=== PATIENT | female | born 1950 | race Caucasian/White ===

== ENCOUNTER 2016-07-24 15:00 | Emergency (ER) | payer MEDICARE ==
[~2016-07-24] VITALS: Ht 142.2 cm; Wt 74.8 kg
[~2016-07-24 15:00] MED LIST: /GLYB5TA OR; /INSULEV SC; AMIT24CA5 PO; AMLO2.5T PO; ASPI1TAB PO; ASPI81TA60 PO; ATOR1TAB19 PO; CALCCHW12 OR; CITRTAB18 PO; COLA100C2 OR; COQ10 PO; CORE3.12 OR; COZA25TA8 OR; CYMBALTA PO; DULO1CAP3 PO; FEOSOL PO; FERR325T3 PO; GABA-279 PO; HUMALOG SC; ICAP PO; INSUDET SC; INSUHUMDS SC; ISOS30BRAN OR; ISTALOL OU; LOSA25TA8 PO; LOSA50TA20 PO; LOVAZA PO; METF500T4 OR; NEXI40CA PO; NITR0.4S SL; NITR4TASL SL; PERC5TAB8 OR; PLAV75TA38 PO; PRIL40CA OR; SLOWTAB PO; TIMO0.5S4 OU; TIMO5OPG OU; TORS20TA2 OR; TYLE1TAB5 PO; VITA10002 PO; VITMTA PO; ZOCO40TA OR
[2016-07-24] MEDS ORDERED: CENTTAB47 PO (15:21)
[2016-07-24] MEDS ORDERED: VITA250L PO (15:21)
[2016-07-24] MEDS ORDERED: NOVOINJ3 SC (15:21)
[2016-07-24] MEDS ORDERED: FURO20TA2 PO (15:21)
[2016-07-24] MEDS ORDERED: ASPIRIN 81 MG CHEW TABLET PO ONE (16:15)
[2016-07-24 16:36] LABS: ALBUMIN/GLOBULIN RATIO 0.94 (1.00-1.93); ALKALINE PHOSPHATASE 83 U/L (45-117); ALT/SGPT 26 U/L (12-78); ANION GAP 9 MEQ/L (8-16); AST/SGOT 21 U/L (15-37); BILIRUBIN,DIRECT < 0.1 MG/DL (0.0-0.2); BILIRUBIN,TOTAL 0.2 MG/DL (0.2-1.0); BLOOD UREA NITROGEN 27 MG/DL (7-18); CALCIUM LEVEL 8.1 MG/DL (8.8-10.2); CARBON DIOXIDE LEVEL 27 MEQ/L (21-32); CHLORIDE LEVEL 105 MEQ/L (98-107); CREATININE FOR GFR 1.45 MG/DL (0.55-1.02); GLOMERULAR FILTRATION RATE 38.6 (>45); GLUCOSE, FASTING 101 MG/DL (80-110); POTASSIUM SERUM 3.7 MEQ/L (3.5-5.1); SODIUM LEVEL 141 MEQ/L (136-145); TOTAL PROTEIN 6.2 GM/DL (6.4-8.2)
--- NOTE | 2016-07-24 16:42 | REP ---
Chest two views HISTORY: Chest pain Comparison: 02/21/2015 The lungs are clear. The heart is normal in size. The pulmonary vasculature is normal in appearance. The bony structure is intact. IMPRESSION: No acute disease. Signed by Ulysses Malave MD 07/24/2016 04:34 P
[2016-07-24 16:52] LABS: BASO % 0.5 % (0.0-1.0); EOS # 0.4 K/mm3 (0.0-0.50); EOS % 5.9 % (0.0-3.0); LARGE UNSTAINED CELL # 0.2 K/mm3 (0.0-0.4); LARGE UNSTAINED CELL % 2.5 % (0.0-4.0); LYMPH # 2.4 K/mm3 (1.5-4.5); LYMPH % 36.3 % (24.0-44.0); MEAN CORPUSCULAR HEMOGLOBIN 31.1 pg (27.0-33.0); MEAN CORPUSCULAR HGB CONC 33.9 g/dl (32.0-36.5); MEAN CORPUSCULAR VOLUME 91.6 fl (80.0-96.0); MONO # 0.4 K/mm3 (0.0-0.8); MONO % 5.4 % (0.0-5.0); NEUTROPHILS # 3.3 K/mm3 (1.8-7.7); NEUTROPHILS % 49.4 % (36.0-66.0); PLATELET COUNT, AUTOMATED 309 k/mm3 (150-450); RED CELL DISTRIBUTION WIDTH 13.8 % (11.5-14.5); WHITE BLOOD COUNT 6.7 K/mm3 (4.0-10.0)
--- NOTE | 2016-07-24 18:07 | ECGEPIP ---
Stationary ECG Study [facility] - ED Test Date: 2016-07-24 Pat Name: ABDIRAHMAN GERARDO Department: Room: - Gender: F Video Conference Specialist: bridget : 1950 Requested By: ROBERT Abdi Order Number: [id number] Reading MD: Hector Pena Measurements Intervals [place] Rate: 71 P: 24 ND: 199 QRS: 46 QRSD: 163 T: 74 QT: 392 QTc: 426 Interpretive Statements SINUS RHYTHM INC. RBBB PRIOR INFERIOR INFARCT SIMILAR TO 03/22/15 Electronically Signed On 07-24-2016 17:51:21 EST by Hector Pena
[2016-07-24] MEDS ORDERED: DEXTROSE 50% 50 ML SYRINGE As Ordered ONE (18:38)
[2016-07-24] MEDS ORDERED: DEXTROSE 50% 50 ML VIAL IV ONE (18:45)
[2016-07-24] MEDS ORDERED: LOSARTAN 25 MG TAB PO ONE (22:30)
[2016-07-24 22:47] VITALS: BP 227/99
[2016-07-25 00:24] VITALS: BP 148/86
--- NOTE | 2016-07-25 05:57 | ECGEPIP ---
Stationary ECG Study [facility] - ED Test Date: 2016-07-24 Pat Name: ABDIRAHMAN GERARDO Department: Room: - Gender: F Hand Striper: rn : 1950 Requested By: ROBERT Abdi Order Number: [id number] Reading MD: Hector Pena Measurements Intervals [place] Rate: 57 P: 13 [place]: 196 QRS: 54 QRSD: 79 T: 97 QT: 422 QTc: 414 Interpretive Statements SINUS BRADYCARDIA NONSPECIFIC ST & T-WAVE ABNORMALITY INC. RBBB PRIOR INFERIOR INFARCT SIMILAR TO 07/24/16 1514h Electronically Signed On 07-25-2016 5:56:37 EST by Hector Pena
== END 2016-07-25 00:35 | disposition home or self-care (01) ==
LOC: M ED 17:01
DX: R07.9 Chest pain, unspecified (principal); I48.91 Unspecified atrial fibrillation; I25.10 Atherosclerotic heart disease of native coronary artery without angina pectoris; E11.9 Type 2 diabetes mellitus without complications; I10 Essential (primary) hypertension; E78.5 Hyperlipidemia, unspecified; K21.9 Gastro-esophageal reflux disease without esophagitis; N18.9 Chronic kidney disease, unspecified; Z95.1 Presence of aortocoronary bypass graft; Z82.49 Family history of ischemic heart disease and other diseases of the circulatory system; Z79.82 Long term (current) use of aspirin; Z79.4 Long term (current) use of insulin; Z79.899 Other long term (current) drug therapy; Z88.8 Allergy status to other drugs, medicaments and biological substances

== ENCOUNTER → 2017-10-21 | Outpatient (CLI) | payer MEDICARE ==
[2017-10-21 17:09] LABS: NT-PRO BNP 311 PG/ML (<125)
== END ==
LOC: M RAD 15:40
DX: R06.02 Shortness of breath (principal)
CPT/HCPCS: 71046

== ENCOUNTER 2017-11-26 15:17 | Emergency (ER) | payer MEDICARE | END 2017-11-26 16:26 | disposition home or self-care (01) | LOC: M ED 15:17 | DX: H60.501 Unspecified acute noninfective otitis externa, right ear (principal); Z97.4 Presence of external hearing-aid; I25.2 Old myocardial infarction; I10 Essential (primary) hypertension; E11.9 Type 2 diabetes mellitus without complications; K21.9 Gastro-esophageal reflux disease without esophagitis; H40.9 Unspecified glaucoma; F32.9 Major depressive disorder, single episode, unspecified; M54.9 Dorsalgia, unspecified; N28.9 Disorder of kidney and ureter, unspecified; Z87.891 Personal history of nicotine dependence; Z79.899 Other long term (current) drug therapy; Z79.82 Long term (current) use of aspirin; Z79.4 Long term (current) use of insulin; Z88.8 Allergy status to other drugs, medicaments and biological substances | CPT/HCPCS: 99283 ==

== ENCOUNTER → 2018-10-13 | Outpatient (REF) | payer MEDICARE ==
[~2018-10-13] MED LIST changes: -/GLYB5TA OR; -/INSULEV SC; -AMIT24CA5 PO; +AMIT24CA7 PO; -AMLO2.5T PO; +AMLO2.5T3 PO; -ASPI1TAB PO; +ASPI81TA26 PO; +CENTTAB47 PO; +COLC1TAB13 PO; +CORTOTSO OTIC; +FURO20TA2 PO; +FURO40TA2 PO; +GABA-1171 PO; -GABA-279 PO; +GLYB1TAB29 OR; +LEVE0.01 SC; +LOSA25TA14 PO; -LOSA25TA8 PO; -LOSA50TA20 PO; +LOSA50TA88 PO; +MEMA1TAB2; +NOVOINJ3 SC; +PLAV1TAB2 PO; -PLAV75TA38 PO; +SPIR-10; -TIMO0.5S4 OU; +TIMO0.5S42 OU; +TIMO0.5S7 OU; -TIMO5OPG OU; +TIZA2TA; +TOUJ300I2 SC; +VITA250L PO
== END ==
LOC: M LAB REF 09:45
PROVIDERS: ATTEND Otolaryngology
DX: D21.0 Benign neoplasm of connective and other soft tissue of head, face and neck (principal)

== ENCOUNTER 2018-10-17 12:47 | Emergency (ER) | payer MEDICARE ==
[~2018-10-17] VITALS: Ht 139.7 cm; Wt 70.5 kg
[~2018-10-17 12:47] MED LIST changes: -COLC1TAB13 PO; -FURO40TA2 PO; -MEMA1TAB2; -SPIR-10; -TIZA2TA
[2018-10-17 13:37] LABS: HEMATOCRIT 40.4 % (36.0-47.0); HEMOGLOBIN 12.7 g/dl (12.0-15.5); MEAN CORPUSCULAR HEMOGLOBIN 30.8 pg (27.0-33.0); MEAN CORPUSCULAR HGB CONC 31.4 g/dl (32.0-36.5); MEAN CORPUSCULAR VOLUME 98.1 fl (80.0-96.0); PLATELET COUNT, AUTOMATED 299 10^3/uL (150-450); RED BLOOD COUNT 4.12 10^6/uL (4.00-5.40); WHITE BLOOD COUNT 13.1 10^3/uL (4.0-10.0)
[2018-10-17 13:54] LABS: BLOOD UREA NITROGEN 36 MG/DL (7-18); C REACTIVE PROTEIN QUANTITATIV < 0.30 MG/DL (0.00-0.30); CALCIUM LEVEL 8.2 MG/DL (8.8-10.2); CARBON DIOXIDE LEVEL 30 MEQ/L (21-32); CHLORIDE LEVEL 102 MEQ/L (98-107); CREATININE FOR GFR 1.47 MG/DL (0.55-1.30); GLOMERULAR FILTRATION RATE 37.7 (>45); GLUCOSE, FASTING 110 MG/DL (70-100); POTASSIUM SERUM 3.4 MEQ/L (3.5-5.1); SODIUM LEVEL 140 MEQ/L (136-145)
[2018-10-17 14:24] LABS: ERYTHROCYTE SEDIMENTATION RATE 32 mm/hr (0-30)
[2018-10-17] MEDS ORDERED: FURO40TA2 PO (15:47)
[2018-10-17] MEDS ORDERED: TIZA2TA (15:47)
[2018-10-17] MEDS ORDERED: MEMA1TAB2 (15:47)
[2018-10-17] MEDS ORDERED: SPIR-10 (15:47)
[2018-10-17] MEDS ORDERED: COLC1TAB13 PO (16:46)
[2018-10-17 16:53] VITALS: BP 125/70
[2018-10-17] MEDS ORDERED: COLCHICINE 0.6 MG TAB PO ONE (17:00)
== END 2018-10-17 16:56 | disposition home or self-care (01) ==
LOC: M ED 12:47
DX: M10.00 Idiopathic gout, unspecified site (principal); M79.89 Other specified soft tissue disorders; E11.9 Type 2 diabetes mellitus without complications; I12.9 Hypertensive chronic kidney disease with stage 1 through stage 4 chronic kidney disease, or unspecified chronic kidney disease; E78.5 Hyperlipidemia, unspecified; N18.9 Chronic kidney disease, unspecified; F32.9 Major depressive disorder, single episode, unspecified; Z95.1 Presence of aortocoronary bypass graft; Z98.84 Bariatric surgery status; I25.2 Old myocardial infarction; Z87.891 Personal history of nicotine dependence

== ENCOUNTER → 2018-11-17 | Outpatient (CLI) | payer MEDICARE ==
[~2018-11-17] MED LIST changes: +COLC1TAB13 PO; +FURO40TA2 PO; +GASTROGRAFIN SOLUTION 30ML (Q9963) As Ordered ONE; +MEMA1TAB2; +SPIR-10; +TIZA2TA
--- NOTE | 2018-11-18 07:43 | REP ---
CT of the abdomen and pelvis: The study is requested with IV and bowel contrast. However, at the time of the examination the the patient indicated that he has stage III chronic renal failure and indicated that she could not IV contrast. Oral contrast was able to drink one half of one cup. The Comparison is 02/21/2015. The visualized lung vee are unremarkable. There are surgical clips in the upper abdomen compatible with the history of bariatric surgery. This is unchanged. There are surgical clips in the gallbladder fossa. This is unchanged. The unenhanced hepatic parenchyma is homogeneous and unremarkable. The pancreas and spleen are normal size and unremarkable and unchanged. The adrenals are unremarkable. There are bilateral nonobstructive renal calculi, as previously. There is no hydronephrosis, as previously. The abdominal aorta is unremarkable except for calcified atheroma. There is no retroperitoneal adenopathy or mass. There is heavily calcified atheroma at the origins of the celiac and superior mesenteric arteries. This is unchanged. There is no bowel distension or obstruction. There are no inflammatory changes in the mesentery. There is no diverticulosis or diverticulitis. Pelvis: The uterus and adnexa are unremarkable and unchanged. The bladder is unremarkable and unchanged. There is no ascites or adenopathy. The appendix is unremarkable. Impression: Bariatric surgery. Nonobstructive renal calculi. Calcified atheroma in the abdominal aorta, celiac artery and SMA. Cholecystectomy. Electronically Signed by Brandon Bernard MD 11/18/2018 07:34 A
== END ==
LOC: M RAD 16:35
PROVIDERS: ATTEND Surgery
DX: R10.9 Unspecified abdominal pain (principal)
CPT/HCPCS: 74176; Q9963

== ENCOUNTER 2018-11-26 11:11 | Emergency (ER) | payer MEDICARE ==
[~2018-11-26] VITALS: Ht 139.7 cm; Wt 68.0 kg
[~2018-11-26 11:11] MED LIST changes: +CYAN100049 PO; -DULO1CAP3 PO; +DULO1CAP6 PO; -GASTROGRAFIN SOLUTION 30ML (Q9963) As Ordered ONE; -VITA10002 PO
[2018-11-26] MEDS ORDERED: CIPRODEX (11:18)
[2018-11-26] MEDS ORDERED: AMOX875T (11:18)
[2018-11-26] MEDS ORDERED: ATOR1TAB19 PO (11:35)
[2018-11-26] MEDS ORDERED: FURO20TA2 PO (11:35)
[2018-11-26] MEDS ORDERED: ALLO100T PO (11:35)
[2018-11-26] MEDS ORDERED: LATA0.0015 (11:35)
[2018-11-26] MEDS ORDERED: GABA-845 PO (11:35)
[2018-11-26] MEDS ORDERED: FURO40TA2 PO (11:35)
[2018-11-26] MEDS ORDERED: FLUTISP (11:35)
[2018-11-26] MEDS ORDERED: ECOT81TA5 PO (11:35)
[2018-11-26] MEDS ORDERED: CIPRODEX OTIC SUSP 7.5ML AD STA (12:42)
[2018-11-26 13:03] VITALS: BP 151/72
== END 2018-11-26 13:05 | disposition home or self-care (01) ==
LOC: M ED 11:11
DX: H60.91 Unspecified otitis externa, right ear (principal); J02.9 Acute pharyngitis, unspecified; I25.2 Old myocardial infarction; E11.9 Type 2 diabetes mellitus without complications; Z87.891 Personal history of nicotine dependence; Z79.82 Long term (current) use of aspirin; Z79.4 Long term (current) use of insulin; Z79.899 Other long term (current) drug therapy; Z88.8 Allergy status to other drugs, medicaments and biological substances

== ENCOUNTER 2018-11-28 07:17 | Emergency (ER) | payer MEDICARE ==
[~2018-11-28] VITALS: Ht 139.7 cm; Wt 68.2 kg
[2018-11-28 07:17] VITALS: BP 149/69
[~2018-11-28 07:17] MED LIST changes: +ALLO100T PO; +AMOX875T; +CIPRODEX; +ECOT81TA5 PO; +FLUTISP; +GABA-845 PO; +LATA0.0015; +MEMA10TA19 PO; -MEMA1TAB2; -SPIR-10; +SPIR-10 PO; -TIZA2TA; +TIZA2TA PO
[2018-11-28] MEDS ORDERED: CIPR-249 PO (08:14)
[2018-12-31] MEDS ORDERED: MULTCAP PO (09:30)
[2018-12-31] MEDS ORDERED: MISO200T56 PO (09:30)
[2018-12-31] MEDS ORDERED: SUPETAB44 PO (09:30)
[2018-12-31] MEDS ORDERED: B-12100T2 PO (09:30)
[2018-12-31] MEDS ORDERED: SUCR1TA PO (09:30)
== END 2018-11-28 08:32 | disposition home or self-care (01) ==
LOC: M ED 07:46
DX: H60.91 Unspecified otitis externa, right ear (principal); E11.9 Type 2 diabetes mellitus without complications; I12.9 Hypertensive chronic kidney disease with stage 1 through stage 4 chronic kidney disease, or unspecified chronic kidney disease; N18.3 Chronic kidney disease, stage 3 (moderate); E78.5 Hyperlipidemia, unspecified; M43.00 Spondylolysis, site unspecified; K21.9 Gastro-esophageal reflux disease without esophagitis; H40.9 Unspecified glaucoma; I25.2 Old myocardial infarction; Z79.899 Other long term (current) drug therapy; Z79.82 Long term (current) use of aspirin; Z79.4 Long term (current) use of insulin; Z88.8 Allergy status to other drugs, medicaments and biological substances; Z87.891 Personal history of nicotine dependence

== ENCOUNTER 2019-01-01 09:55 | Day surgery (SDC) | payer MEDICARE ==
[~2019-01-01] VITALS: Ht 139.7 cm; Wt 69.9 kg
[~2019-01-01 09:55] MED LIST changes: +B-12100T2 PO; +CIPR-249 PO; -MEMA10TA19 PO; +MEMA1TAB2 PO; +MISO200T56 PO; +MULTCAP PO; +SUCR1TA PO; +SUPETAB44 PO
[2019-01-01] MEDS ORDERED: NS 1,000 ML IV ONE (10:30)
[2019-01-01] MEDS ORDERED: PROPOFOL 200 MG/20 ML VIAL As Ordered ONE (11:23)
[2019-01-01] MEDS ORDERED: LIDOCAINE 2% INJ 100 MG/5 ML SDV (FOR ANES.) As Ordered ONE (11:23)
--- NOTE | 2019-01-01 11:41 | ROOR ---
Patient Name: Tonja Yip Procedure Date: 01/01/2019 11:25 AM Date of : 1950 Age: 68 Room: [facility] Gender: Female Note Status: Finalized Procedure: Upper GI endoscopy Indications: Epigastric abdominal pain Providers: Krzysztof AUGUSTE MD Referring MD: RACHEL CRAWFORD DO Requesting Provider: Medicines: Monitored Anesthesia Care Complications: No immediate complications. Procedure: Pre-Anesthesia Assessment: - The heart rate, respiratory rate, oxygen saturations, blood pressure, adequacy of pulmonary ventilation, and response to care were monitored throughout the procedure. The Endoscope was introduced through the mouth, and advanced to the jejunum. The upper GI endoscopy was accomplished without difficulty. The patient tolerated the procedure well. Findings: The examined esophagus was normal. Evidence of a Anneliese-en-Y gastrojejunostomy was found. The gastrojejunal anastomosis was characterized by healthy appearing mucosa. The cardia and gastric fundus were normal on retroflexion. The examined jejunum was normal. Impression: - Normal esophagus. - Anneliese-en-Y gastrojejunostomy with gastrojejunal anastomosis, this is widely patent and characterized by healthy appearing mucosa. - Otherwise normal stomach and retroflexilon. - Normal examined jejunum. - No specimens collected. Recommendation: - Observe patient's clinical course. - Continue present medications. Krzysztof Auguste MD Krzysztof AUGUSTE MD 01/01/2019 11:41:20 AM Electronically signed by Krzysztof AUGUSTE MD Number of Addenda: 0 Note Initiated On: 01/01/2019 11:25 AM Estimated Blood Loss: Estimated blood loss: none.
--- NOTE | 2019-01-01 12:05 | ROOR ---
Patient Name: Tonja Yip Procedure Date: 01/01/2019 11:26 AM Date of : 1950 Age: 68 Room: [facility] Gender: Female Note Status: Finalized Procedure: Colonoscopy Indications: High risk colon cancer surveillance: Personal history of colonic polyps Providers: Krzysztof AUGUSTE MD Referring MD: RACHEL CRAWFORD DO Requesting Provider: Medicines: Monitored Anesthesia Care Complications: No immediate complications. Procedure: Pre-Anesthesia Assessment: - The heart rate, respiratory rate, oxygen saturations, blood pressure, adequacy of pulmonary ventilation, and response to care were monitored throughout the procedure. The Colonoscope was introduced through the anus and advanced to the cecum, identified by appendiceal orifice and ileocecal valve. The colonoscopy was performed without difficulty. The patient tolerated the procedure well. The quality of the bowel preparation was good. Findings: The perianal and digital rectal examinations were normal. The colon was redundant. Advancing the scope required applying abdominal pressure. A few medium-mouthed diverticula were found in the sigmoid colon and transverse colon. The exam was otherwise without abnormality on direct and retroflexion views. Impression: - Redundant colon. - Minimal diverticulosis in the sigmoid colon and in the transverse colon. - Small internal hemorhoids. - The colonoscopy was otherwise normal on direct and retroflexion views. - No specimens collected. Recommendation: - Repeat colonoscopy in 5 years for surveillance based on personal history of previous adenomatous polyps. Krzysztof Auguste MD Krzysztof AUGUSTE MD 01/01/2019 12:04:53 PM Electronically signed by Krzysztof AUGUSTE MD Number of Addenda: 0 Note Initiated On: 01/01/2019 11:26 AM Estimated Blood Loss: Estimated blood loss: none.
[2019-01-01 12:39] VITALS: BP 176/86
== END 2019-01-01 12:41 | disposition home or self-care (01) ==
LOC: M OPP 09:55
PROVIDERS: ATTEND Internal Medicine Gastroenterology
DX: Z12.11 Encounter for screening for malignant neoplasm of colon (principal); Z86.010 Personal history of colon polyps; K57.30 Diverticulosis of large intestine without perforation or abscess without bleeding; Q43.8 Other specified congenital malformations of intestine; K64.8 Other hemorrhoids; R10.13 Epigastric pain; Z98.0 Intestinal bypass and anastomosis status; I48.91 Unspecified atrial fibrillation; I25.2 Old myocardial infarction; I25.10 Atherosclerotic heart disease of native coronary artery without angina pectoris; I12.9 Hypertensive chronic kidney disease with stage 1 through stage 4 chronic kidney disease, or unspecified chronic kidney disease; E78.5 Hyperlipidemia, unspecified; E11.9 Type 2 diabetes mellitus without complications; M10.9 Gout, unspecified; M19.90 Unspecified osteoarthritis, unspecified site; M54.89 Other dorsalgia; F41.9 Anxiety disorder, unspecified; F32.9 Major depressive disorder, single episode, unspecified; G47.30 Sleep apnea, unspecified; R06.83 Snoring; N18.3 Chronic kidney disease, stage 3 (moderate); Z95.1 Presence of aortocoronary bypass graft; Z87.891 Personal history of nicotine dependence; Z88.8 Allergy status to other drugs, medicaments and biological substances; Z79.82 Long term (current) use of aspirin; Z79.899 Other long term (current) drug therapy; Z79.4 Long term (current) use of insulin
CPT/HCPCS: 43235; G0105

== ENCOUNTER → 2019-10-01 | Outpatient (CLI) | payer MEDICARE ==
[~2019-10-01] MED LIST changes: +MEMA10TA19 PO; -MEMA1TAB2 PO
[2019-10-01 17:32] LABS: BILIRUBIN,TOTAL 0.2 MG/DL (0.2-1.0); CALCIUM LEVEL 8.7 MG/DL (8.8-10.2); CREATININE FOR GFR 1.92 MG/DL (0.55-1.30); GLOMERULAR FILTRATION RATE 27.6 (>45); POTASSIUM SERUM 4.3 MEQ/L (3.5-5.1); TOTAL PROTEIN 5.7 GM/DL (6.4-8.2)
== END ==
LOC: M WUC 13:56
DX: N18.9 Chronic kidney disease, unspecified (principal); Z98.84 Bariatric surgery status

== ENCOUNTER → 2019-12-27 | Outpatient (CLI) | payer MEDICARE ==
[~2019-12-27] MED LIST changes: +COMB0.2S OU; +FERR325T16 PO; +ISRA2.5C PO; +MAGN1TAB39 PO
--- NOTE | 2020-02-17 16:22 | REP ---
RENAL ULTRASOUND WITH DUPLEX DOPPER RENAL ARTERY EVALUATION HISTORY: Chronic kidney disease, hypertension. TECHNIQUE: Real-time ultrasound evaluation and duplex Doppler interrogation of the kidneys is performed. FINDINGS: Both kidneys are slightly small in size, right kidney measuring 9.1 x 4.3 x 4.4 cm and the left kidney 8.5 x 4.3 x 4.3 cm. There is no hydronephrosis bilaterally. In the upper pole of the left kidney, there appears to be a cyst approximately 6 mm in diameter. Real-time ultrasound evaluation and duplex Doppler interrogation of the renal arteries is performed bilaterally. Peak systolic velocity of the abdominal aorta at the level of the renal artery is 73 cm/s. Peak systolic velocity of the main right renal artery is 101 cm/s, renal to aortic ratio 1.38. Resistive indices are measured in the upper, middle, and lower thirds of the right kidney and range between 0.79 and 0.86. Acceleration times range between 0.036 and 0.040. Peak systolic velocity of the main left renal artery is 108 cm/s distally, proximal aspects of the main left renal artery are not visualized. Resistive indices left kidney ranged between 0.84 and 0.88. Acceleration times ranged between 0.034 and 0.054. IMPRESSION: Somewhat limited examination. Proximal to mid left renal artery is not visualized due to overlying bowel gas. No compelling indirect evidence of significant renal artery stenosis. Elevated resistive indices of the intrarenal arteries suggests small vessel disease. MTDD
== END ==
LOC: M RAD 09:20
PROVIDERS: ATTEND Internal Medicine Nephrology
DX: N18.9 Chronic kidney disease, unspecified (principal); I12.9 Hypertensive chronic kidney disease with stage 1 through stage 4 chronic kidney disease, or unspecified chronic kidney disease

== ENCOUNTER → 2020-02-14 | Outpatient (REF) | payer MEDICARE ==
[2020-02-14 18:05] LABS: PERCENT SATURATION 10.8 % (13.2-45.0)
== END ==
LOC: M LAB REF 17:14
PROVIDERS: ATTEND Internal Medicine Nephrology
DX: D50.9 Iron deficiency anemia, unspecified (principal); N39.0 Urinary tract infection, site not specified

== ENCOUNTER → 2020-02-18 | Outpatient (CLI) | payer MEDICARE ==
--- NOTE | 2020-02-25 09:28 | REP ---
BILATERAL UPPER EXTREMITY ARTERIAL AND VENOUS DOPPLER EVALUATION: VEIN MAPPING STUDY HISTORY: Chronic medical renal disease. Evaluate vessels for arteriovenous fistula. FINDINGS: There is no evidence of venous thrombosis in either upper extremity. The cephalic veins are bilaterally noted to drain relatively low into the brachial veins above the median cubital vein level. Jugular veins are patent bilaterally. High brachial artery bifurcations are noted at mid humerus level. There is some significant calcification in the radial and ulnar arteries distally bilaterally. RIGHT UPPER EXTREMITY VEIN DIAMETER CHART: BASILIC CEPHALIC Upper humerus 3.2 mm Not present Lower humerus 1.5 mm 0.7 mm Upper forearm 1.4 mm 2.5 mm Lower forearm 0.8 mm 2.5 mm Median cubital 1.9 mm LEFT UPPER EXTREMITY VEIN DIAMETER CHART: BASILIC CEPHALIC Upper humerus 2.2 mm Not present Lower humerus 0.9 mm 0.8 mm Upper forearm 1.3 mm 2.1 mm Lower forearm 1.8 mm 1.2 mm Median cubital 2.2 mm RIGHT UPPER EXTREMITY ARTERIAL DOPPLER VELOCITY AND DIAMETER CHART: PSV Axillary artery 138 cm/s, 5.0 mm Brachial 153 cm/s, 4.1 mm Distal radial artery 101 cm/s, 1.9 mm Distal ulnar artery 49 cm/s, 1.1 mm Axillary artery 79 cm/s, 4.7 mm Brachial 75 cm/s, 4.0 mm Distal radial artery 97 cm/s, 1.3 mm Distal ulnar artery 69 cm/s, 1.6 mm MTDD
== END ==
LOC: M RAD 12:09
PROVIDERS: ATTEND Internal Medicine Nephrology
DX: N18.4 Chronic kidney disease, stage 4 (severe) (principal)

== ENCOUNTER → 2020-03-03 | Outpatient (CLI) | payer MEDICARE ==
[~2020-03-03] MED LIST changes: -COMB0.2S OU; -FERR325T16 PO; -ISRA2.5C PO; -MAGN1TAB39 PO
--- NOTE | 2020-03-08 15:03 | REP ---
RIGHT KNEE SERIES: 5-VIEWS HISTORY: Right knee pain anteriorly. Injury in a fall. FINDINGS: Four views of the right knee demonstrate multiple surgical clips distributed in the medial soft tissues consistent with previous vein surgery. There is vascular calcification. The sunrise view shows a radiolucent defect in the medial portion of the patella, question patellar fracture nondisplaced. There is no evidence of significant joint effusion. No patellar abnormality is apparent on any other radiographic view. There is some diffuse osteopenia. No other fracture is seen. IMPRESSION: Possible nondisplaced fracture of the medial aspect of the patella. MTDD
== END ==
LOC: M WUC 15:55
PROVIDERS: ATTEND Physician Assistant
DX: S80.01XA Contusion of right knee, initial encounter (principal); M85.861 Other specified disorders of bone density and structure, right lower leg; X58.XXXA Exposure to other specified factors, initial encounter; Y92.9 Unspecified place or not applicable

== ENCOUNTER → 2020-04-01 | Outpatient (CLI) | payer MEDICARE | LOC: M LABSMTC 08:19 | PROVIDERS: ATTEND Anesthesiology | DX: Z01.818 Encounter for other preprocedural examination (principal); Z20.828 Contact with and (suspected) exposure to other viral communicable diseases | CPT/HCPCS: C9803; U0003 ==

== ENCOUNTER 2020-04-06 07:50 | Day surgery (SDC) | payer MEDICARE ==
[~2020-04-06] VITALS: Ht 139.7 cm; Wt 62.6 kg
[~2020-04-06 07:50] MED LIST changes: +COMB0.2S OU; +FERR325T16 PO; +ISRA2.5C PO; +MAGN1TAB39 PO; +NS 1,000 ML IV ONE
[2020-04-06] MEDS ORDERED: propofoL 200 MG/20 ML VIAL As Ordered ONE ×2 (07:51→09:00)
[2020-04-06] MEDS ORDERED: LIDOCAINE 2% 100MG/5ML SDV (FOR ANES.) As Ordered ONE (07:51)
--- NOTE | 2020-04-06 09:17 | ROOR ---
Patient Name: Tonja Yip Procedure Date: 04/06/2020 9:00 AM Date of : 1950 Age: 69 Room: [facility] Gender: Female Note Status: Finalized Procedure: Upper GI endoscopy Indications: Abdominal pain Providers: Krzysztof AUGUSTE MD Referring MD: RACHEL CRAWFORD DO Requesting Provider: Medicines: Monitored Anesthesia Care Complications: No immediate complications. Procedure: Pre-Anesthesia Assessment: - The heart rate, respiratory rate, oxygen saturations, blood pressure, adequacy of pulmonary ventilation, and response to care were monitored throughout the procedure. The Endoscope was introduced through the mouth, and advanced to the jejunum. The upper GI endoscopy was accomplished without difficulty. The patient tolerated the procedure well. Findings: The examined esophagus was normal. Evidence of a Anneliese-en-Y gastrojejunostomy was found. The gastrojejunal anastomosis was characterized by healthy appearing mucosa. The cardia and gastric fundus were normal on retroflexion. The exam of the stomach was otherwise normal. The examined jejunum was normal. Impression: - Normal esophagus. - Anneliese-en-Y gastrojejunostomy with gastrojejunal anastomosis characterized by healthy appearing mucosa. - Otherwise normal gastric remnant - Normal examined jejunum. - No specimens collected. Recommendation: - Observe patient's clinical course. - Try a Gastroparesis diet: - Eat smaller, more frequent meals throughout the day. - Low fat diet. - Liquid/soft foods are tolerated better than solid foods. - Low fiber/well cooked vegetables are tolerated better than high fiber/fibrous foods/raw vegetables. - Avoid medications that inhibit gastric/intestinal motility such as narcotic medications. Krzysztof Auguste MD Krzysztof AUGUSTE MD 04/06/2020 9:16:17 AM Electronically signed by Krzysztof AUGUSTE MD Number of Addenda: 0 Note Initiated On: 04/06/2020 9:00 AM Estimated Blood Loss: Estimated blood loss: none.
[2020-04-06 09:40] VITALS: BP 186/81
== END 2020-04-06 09:45 | disposition home or self-care (01) ==
LOC: M OPP 07:50
PROVIDERS: ATTEND Internal Medicine Gastroenterology
DX: Z98.0 Intestinal bypass and anastomosis status (principal); R10.13 Epigastric pain; I48.91 Unspecified atrial fibrillation; E11.9 Type 2 diabetes mellitus without complications; I25.2 Old myocardial infarction; G47.30 Sleep apnea, unspecified; Z79.899 Other long term (current) drug therapy; Z88.8 Allergy status to other drugs, medicaments and biological substances; Z87.891 Personal history of nicotine dependence

== ENCOUNTER → 2020-04-11 | Outpatient (CLI) | payer MEDICARE ==
[~2020-04-11] MED LIST changes: -NS 1,000 ML IV ONE
[2020-04-11 15:52] LABS: BASO # 0.1 10^3/uL (0.0-0.2); BASO % 0.6 % (0.0-1.0); EOS # 0.3 10^3/uL (0.0-0.5); EOS % 2.1 % (0.0-3.0); HEMATOCRIT 38.3 % (36.0-47.0); HEMOGLOBIN 11.8 g/dl (12.0-15.5); LYMPH # 2.5 10^3/uL (1.5-5.0); LYMPH % 18.1 % (24.0-44.0); MEAN CORPUSCULAR HEMOGLOBIN 31.2 pg (27.0-33.0); MEAN CORPUSCULAR HGB CONC 30.8 g/dl (32.0-36.5); MEAN CORPUSCULAR VOLUME 101.3 fl (80.0-96.0); MONO # 0.7 10^3/uL (0.0-0.8); NEUTROPHILS # 10.2 10^3/uL (1.5-8.5); NEUTROPHILS % 73.7 % (36.0-66.0); PLATELET COUNT, AUTOMATED 368 10^3/uL (150-450); RED BLOOD COUNT 3.78 10^6/uL (4.00-5.40); WHITE BLOOD COUNT 13.9 10^3/uL (4.0-10.0)
[2020-04-11 15:59] LABS: HEMATOCRIT 38.3 % (36.0-47.0)
[2020-04-11 16:12] LABS: HEMOGLOBIN A1c 6.5 %
[2020-04-11 16:24] LABS: ALBUMIN 3.3 GM/DL (3.2-5.2); BILIRUBIN,TOTAL 0.2 MG/DL (0.2-1.0); CREATININE FOR GFR 2.41 MG/DL (0.55-1.30); GLOMERULAR FILTRATION RATE 21.2 (>45); MAGNESIUM LEVEL 2.3 MG/DL (1.8-2.4); PERCENT SATURATION 44.1 % (13.2-45.0); PHOSPHORUS LEVEL 5.2 MG/DL (2.5-4.9); POTASSIUM SERUM 5.2 MEQ/L (3.5-5.1); TOTAL PROTEIN 6.4 GM/DL (6.4-8.2)
[2020-04-11 16:40] LABS: TOTAL 25(OH) VITAMIN D 36.8 NG/ML (30.0-100.0)
== END ==
LOC: M WUC 14:10
PROVIDERS: ATTEND Physician Assistant
DX: K91.2 Postsurgical malabsorption, not elsewhere classified (principal); E55.9 Vitamin D deficiency, unspecified; Z86.39 Personal history of other endocrine, nutritional and metabolic disease; Z98.84 Bariatric surgery status

== ENCOUNTER → 2020-07-04 | Outpatient (CLI) | payer MEDICARE ==
[~2020-07-04] MED LIST changes: +CIPR7.5D5; -CIPRODEX; +COLC0.6T47 PO; -COLC1TAB13 PO
--- NOTE | 2020-07-04 08:38 | REP ---
INDICATION: WEIGHT LOSS, HEAVY TREY CHANGES. Evaluate for mesenteric stenosis. COMPARISON: Comparison CT study June 12, 2020. Comparison MR angiography December 18, 2019.. TECHNIQUE: Upper abdominal sonography with Doppler. FINDINGS: The retroperitoneum was scanned in the upper abdomen from multiple positions without success at visualizing the mesenteric arteries in this patient, likely secondary to heavily calcified vessels. Peak systolic flow velocity in the abdominal aorta in the upper abdomen was normal at 82 centimeters/second. No other visceral arterial Doppler data could be gathered. IMPRESSION: Technically impossible to complete the exam as the visceral vessels could not be visualized by ultrasound. <Electronically signed by Chris Negron > 07/04/20 [id number]
== END ==
LOC: M RAD 07:15
PROVIDERS: ATTEND Physician Assistant Medical
DX: R10.84 Generalized abdominal pain (principal); R63.4 Abnormal weight loss

== ENCOUNTER → 2020-07-11 | Outpatient (POV) | payer MEDICARE ==
--- NOTE | 2020-07-13 11:17 | IRCOV ---
[facility] IR Consult Office Visit IR Consult Office Visit DATE: Jul 11, 2020 Patient agreed to this telephone consultation. I spent 30 minutes reviewing patient's records, imaging and talking to the patient. REASON FOR CONSULTATION/CHIEF COMPLAINT: Abdominal pain. HISTORY OF PRESENT ILLNESS: 70-year-old female with Anneliese-en-Y gastrojejunostomy, diabetes, CAD, hypertension and chronic kidney disease, describes abdominal pain for 1 year. She describes the pain starting in the left upper quadrant and coursing to the left lower quadrant. She feels pain in the pit of her stomach. She sometimes feels the pain radiating to her lower back. She describes the pain comes on 30-45 minutes after eating. She has to sit down because the pain is so bad. She uses Tylenol sometimes for the pain to relieve it. It can last hours. She is scared to eat and has lost weight. She denies hematemesis or melena or bright blood per rectum. She underwent an upper GI endoscopy in March 2020 which revealed an unremarkable Anneliese-en-Y gastrojejunostomy. Otherwise negative. No ulcers. ALLERGIES: Please see below. HOME MEDICATIONS: Please see below. PAST MEDICAL HISTORY: Coronary artery disease Chronic kidney disease Diabetes Hypertension Hyperlipidemia Peripheral neuropathy GERD Obesity PAST SURGICAL HISTORY: Cholecystectomy Cardiac bypass 1993 Anneliese-en-Y gastrojejunostomy 2012 FAMILY HISTORY: Noncontributory. SOCIAL HISTORY: Ex-smoker. Quit in 1993. Denies alcohol or drugs. REVIEW OF SYSTEMS: Otherwise negative. PHYSICAL EXAMINATION: No video on patient side. LABORATORY DATA: 04/11/2020 hemoglobin 11.8 MCV 101.3 hematocrit 38.3 WBC 13.9 platelets 368 sodium 139 potassium 5.2 BUN 51 creatinine 2.41 GFR 21.2 hemoglobin A1c 6.5 iron 167 TIBC 379 total bilirubin 0.2 AST 15 ALT 25 ALP 104 IMAGING: I personally reviewed the abdominal ultrasound performed June 2020. Incomplete study due to aortic calcifications. I personally reviewed the CT abdomen and pelvis without contrast performed 11/17/2018. Unable to evaluate vascular patency without IV contrast. However, there are chunky calcifications at the origin of the SMA. Patient did not receive contrast due to kidney function. ASSESSMENT/PLAN: 70-year-old female arteriopath presents with symptoms of chronic mesenteric angina. I agree she would benefit from mesenteric angiography with stenting during the same session, if appropriate. Given her kidney function we would have to be cognisant to use minimal amount of contrast and hydrate the patient during the procedure with IV saline. We discussed the risks and benefits of the procedure and patient would like to proceed. We'll schedule the patient for mesenteric angiography and/or stenting as appropriate. Thank you for this referral. Cc Dr. Robinson Goodwin Cc Dr. Zach Lira Cc Dr. Auguste Cc Dr. Bocanegra Allergies Coded Allergies: captopril (Verified Allergy, Mild, itchy, 04/04/20) Home Medications Scheduled Allopurinol (Allopurinol), 1 TAB PO DAILY, (Reported) Aspirin (Ecotrin), 1 TAB PO BID, (Reported) Atorvastatin Calcium (Atorvastatin Calcium), 1 TAB PO QHS, (Reported) Brimonidine Tartrate/Timolol (Combigan 0.2%-0.5% Eye Drops), 1 DROP OU BID, (Reported) Calcium Citrate/Vitamin D3 (Citracal + D Maximum Caplet), 1 TAB PO BID, (Reported) Cyanocobalamin (Vitamin B-12) (Vitamin B-12), 1,000 MCG PO DAILY, (Reported) Duloxetine Hcl (Duloxetine HCl), 60 MG PO QPM, (Reported) Esomeprazole Magnesium (Nexium), 40 MG PO BID, (Reported) Ferrous Gluconate (Ferrous Gluconate), 324 MG PO DAILY, (Reported) Folic Acid/Vit B Complex and C (Super B Complex Tablet), 1 TAB PO DAILY, (Reported) Gabapentin (Gabapentin), 1 CAP PO TID, (Reported) Insulin Glargine,Hum.rec.anlog (Toujeo Max Solostar), 50 UNIT SC QHS, (Reported) Isradipine (Isradipine), 2.5 MG PO BID, (Reported) Latanoprost/Pf (Latanoprost 0.005% Eye Drop), 1 DROP QHS, (Reported) Lubiprostone (Amitiza), 24 MCG PO BID, (Reported) Magnesium Chloride (Magnesium Chloride), 1 TAB PO DAILY, (Reported) Memantine HCl (Memantine HCl), 5 MG PO BID, (Reported) Misoprostol (Misoprostol), 200 MCG PO QID, (Reported) Multivitamin (Multivitamins), 1 CAP PO DAILY, (Reported) Spironolactone (Spironolactone), 25 MG PO BID, (Reported) Sucralfate (Sucralfate), 1 GM PO ACHS, (Reported) Tizanidine HCl (Tizanidine HCl), 4 MG PO BID, (Reported) Scheduled PRN Furosemide (Furosemide), 20 MG PO BID PRN for SEE LABEL COMMENTS, (Reported) Furosemide (Furosemide), 1 TAB PO BID PRN for SEE LABEL COMMENTS, (Reported) Nitroglycerin (Nitrostat), 0.4 MG SL for CHEST PAIN, (Reported) Miscellaneous Medications Insulin Aspart (Novolog Flexpen), 1 UNITS SC, (Reported) GREG PERKINS MD Jul 13, 2020 11:17
== END ==
LOC: M IRPOV 08:18
PROVIDERS: ATTEND Radiology Diagnostic Radiology
DX: R10.9 Unspecified abdominal pain (principal); E11.9 Type 2 diabetes mellitus without complications; I12.9 Hypertensive chronic kidney disease with stage 1 through stage 4 chronic kidney disease, or unspecified chronic kidney disease; I25.10 Atherosclerotic heart disease of native coronary artery without angina pectoris; N18.9 Chronic kidney disease, unspecified; E78.5 Hyperlipidemia, unspecified; E11.40 Type 2 diabetes mellitus with diabetic neuropathy, unspecified; K21.9 Gastro-esophageal reflux disease without esophagitis; E66.9 Obesity, unspecified; Z79.4 Long term (current) use of insulin; Z79.899 Other long term (current) drug therapy; Z87.891 Personal history of nicotine dependence; Z95.1 Presence of aortocoronary bypass graft

== ENCOUNTER → 2020-07-17 | Outpatient (REF) | payer MEDICARE | LOC: M LAB REF 17:01 | PROVIDERS: ATTEND Internal Medicine Nephrology | DX: N39.0 Urinary tract infection, site not specified (principal) ==

== ENCOUNTER → 2020-08-01 | Outpatient (CLI) | payer MEDICARE ==
[2020-08-01 10:46] LABS: CHOLESTEROL RISK RATIO 2.551 (<5)
[2020-08-02 11:09] LABS: LDL DIRECT 33 mg/dL (0-99)
== END ==
LOC: M WUC 08:38
PROVIDERS: ATTEND Internal Medicine Cardiovascular Disease
DX: E78.2 Mixed hyperlipidemia (principal)

== ENCOUNTER → 2020-08-03 | Outpatient (CLI) | payer MEDICARE ==
[~2020-08-03] MED LIST changes: +ISOVUE-300 61% 50ML VIAL As Ordered ONE; +LIDOCAINE 1% MDV 20ML VIAL As Ordered ONE; +MIDAZOLAM INJ 2MG/2ML VIAL (J2250 PER 1MG) As Ordered ONE; +PROMETHAZINE INJ 25 MG/ML VIAL (J2550) As Ordered ONE; +diphenhydrAMINE 50MG/ML VIAL (J1200) As Ordered ONE; +fentaNYL 100 MCG/2 ML INJECTION (J3010) As Ordered ONE
[2020-08-03 08:24] LABS: HEMATOCRIT 36.3 % (36.0-47.0); HEMOGLOBIN 11.5 g/dl (12.0-15.5); MEAN CORPUSCULAR HEMOGLOBIN 31.9 pg (27.0-33.0); MEAN CORPUSCULAR HGB CONC 31.7 g/dl (32.0-36.5); MEAN CORPUSCULAR VOLUME 100.8 fl (80.0-96.0); PLATELET COUNT, AUTOMATED 365 10^3/uL (150-450); WHITE BLOOD COUNT 11.8 10^3/uL (4.0-10.0)
--- NOTE | 2020-08-03 08:32 | IRHP ---
[facility] IR Pre-Procedure H & P General Date of Service: Aug 03, 2020 Procedure: Same Day Surgery Interval History and Physical I have seen the patient and reviewed last H & P performed within 30 days. There is no significant interval change. History of Present Illness Chief Complaint The patient is a 70-year-old female admitted with a reason for visit of Mesenteric Angina. PRE-PROCEDURE DIAGNOSIS: Mesenteric angina HEART: Normal rate. LUNGS: Normal breathing at rest. ASA Classification ASA Classification: III-Severe systemic dis. Mallampati Score: II NPO: Yes Problems with prior sedation: No Obstructive Sleep Apnea: Yes Plan moderate sedation Allergies Coded Allergies: captopril (Verified Allergy, Mild, itchy, 04/04/20) Home Medications Scheduled Allopurinol (Allopurinol), 1 TAB PO DAILY, (Reported) Aspirin (Ecotrin), 1 TAB PO BID, (Reported) Atorvastatin Calcium (Atorvastatin Calcium), 1 TAB PO QHS, (Reported) Brimonidine Tartrate/Timolol (Combigan 0.2%-0.5% Eye Drops), 1 DROP OU BID, (Reported) Calcium Citrate/Vitamin D3 (Citracal + D Maximum Caplet), 1 TAB PO BID, (Reported) Cyanocobalamin (Vitamin B-12) (Vitamin B-12), 1,000 MCG PO DAILY, (Reported) Duloxetine Hcl (Duloxetine HCl), 60 MG PO QPM, (Reported) Esomeprazole Magnesium (Nexium), 40 MG PO BID, (Reported) Ferrous Gluconate (Ferrous Gluconate), 324 MG PO DAILY, (Reported) Folic Acid/Vit B Complex and C (Super B Complex Tablet), 1 TAB PO DAILY, (Reported) Gabapentin (Gabapentin), 1 CAP PO TID, (Reported) Insulin Glargine,Hum.rec.anlog (Toujeo Max Solostar), 50 UNIT SC QHS, (Reported) Isradipine (Isradipine), 2.5 MG PO BID, (Reported) Latanoprost/Pf (Latanoprost 0.005% Eye Drop), 1 DROP QHS, (Reported) Lubiprostone (Amitiza), 24 MCG PO BID, (Reported) Magnesium Chloride (Magnesium Chloride), 1 TAB PO DAILY, (Reported) Memantine HCl (Memantine HCl), 5 MG PO BID, (Reported) Misoprostol (Misoprostol), 200 MCG PO QID, (Reported) Multivitamin (Multivitamins), 1 CAP PO DAILY, (Reported) Spironolactone (Spironolactone), 25 MG PO BID, (Reported) Sucralfate (Sucralfate), 1 GM PO ACHS, (Reported) Tizanidine HCl (Tizanidine HCl), 4 MG PO BID, (Reported) Scheduled PRN Furosemide (Furosemide), 20 MG PO BID PRN for SEE LABEL COMMENTS, (Reported) Furosemide (Furosemide), 1 TAB PO BID PRN for SEE LABEL COMMENTS, (Reported) Nitroglycerin (Nitrostat), 0.4 MG SL for CHEST PAIN, (Reported) Miscellaneous Medications Insulin Aspart (Novolog Flexpen), 1 UNITS SC, (Reported) VS, I&O, 24H, Fishbone Vital Signs/I&O Vital Signs Date Time Temp Pulse Resp B/P (MAP) Pulse Ox O2 Delivery O2 Flow Rate FiO2 08/03/20 07:55 97.6 84 20 99 Room Air Laboratory Data 24H LABS Laboratory Tests 2 08/03/20 08:00: Nucleated Red Blood Cells % (auto) 0.0 CBC/BMP Laboratory Tests 08/03/20 08:00 GREG PERKINS MD Aug 03, 2020 08:32
[2020-08-03 08:33] LABS: INR 0.91; PROTHROMBIN TIME 12.4 SECONDS (12.5-14.3)
[2020-08-03 08:45] LABS: CALCIUM LEVEL 8.8 MG/DL (8.8-10.2); CREATININE FOR GFR 1.64 MG/DL (0.55-1.30); GLOMERULAR FILTRATION RATE 33.1 (>45)
--- NOTE | 2020-08-03 12:47 | POST-OPPD ---
Postoperative Procedure Note Date Of Procedure: Aug 03, 2020 Time Of Procedure: 12:37 IR Celiac arteriogram. IR Superior mesenteric arteriogram. IR Moderate sedation. Clinical Information:Chronic mesenteric angina. Physician: Dr. Jean. Procedure: The patient was advised of the benefits, risks, and alternatives of the procedure and informed consent was obtained. A time out was performed with verification of the patient's name, MRN, site of procedure, and type of procedure to be performed. The patient was positioned in the supine position on the angiographic table. The site was prepped and draped in the usual sterile fashion. Moderate sedation was performed by the physician including the presence of an independent trained RN, who assisted in monitoring the patient's level of consciousness and physiological status. Following the administration of fentanyl and Versed, the physician spent 70 minutes of continuous cfmz-ek-[id number] time with the patient. A turn down attendant radiograph reveals surgical clips in the right upper quadrant. Lidocaine was used for local anesthesia. The right common femoral artery was accessed, under fluoroscopy guidance with a microintroducer set. A short 0.018" Lebec wire was inserted and the needle was exchanged for a 4 Fr microintroducer sheath. The guidewire and dilator were removed and a 0.035" Bentson wire was placed into the abdominal aorta. A 6 Fr sheath was placed over the wire. A SOS catheter was advanced over the wire under fluoroscopic guidance and used to catheterize the celiac artery. A celiac arteriograms was performed and this demonstrates patent celiac artery branching into splenic and left hepatic artery. There is retrograde filling of the occluded superior mesenteric artery via the gastroduodenal artery. There is a replaced right hepatic artery arising off the superior mesenteric artery. 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 The SOS catheter in conjunction with the wire was then used to try to catheterize the occluded superior mesenteric artery. Multiple catheter and wire combinations were used. A microcatheter and microwire was then inserted through the diagnostic catheter and used under fluoroscopy guidance to try to selectively catheterize the occluded superior mesenteric artery. This was unsuccessful. The microcatheter was removed and the diagnostic catheter was positioned in the abdominal aorta. An aortogram was performed. This demonstrate the origin of the celiac artery but fails to demonstrate the origin of the occluded superior mesenteric artery. After the use of 90 mL of contrast for attempted SMA catheterization, the procedure was aborted. The catheter, wire and sheath were removed, pressure held and hemostasis achieved. A sterile dressing was applied to the site. The patient tolerated the procedure well and was returned to the PRU in stable condition. EBL: < 5 mL. Complications:None. Impression: 1. Celiac arteriogram demonstrates patent celiac artery with retrograde filling of the superior mesenteric artery via the GDA. 2. 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 Replaced right hepatic artery off the SMA. 3. Failed attempt at superior mesenteric artery stenting via femoral artery approach. Patient will be brought back for radial artery approach. Thank you for this referral. Cc GREG Tee MD Aug 03, 2020 12:47
[2020-08-03 16:12] VITALS: BP 197/93
== END ==
LOC: M IRPRO 07:34
PROVIDERS: ATTEND Radiology Diagnostic Radiology
DX: K55.1 Chronic vascular disorders of intestine (principal); Z79.82 Long term (current) use of aspirin; Z79.899 Other long term (current) drug therapy; Z88.8 Allergy status to other drugs, medicaments and biological substances
CPT/HCPCS: 36245; 75726; 80048; 85027; 85610; 99152; 99153; C1769; C1887; C1894; J1200; J1644; J2250; J3010; Q9967

== ENCOUNTER → 2020-08-23 | Outpatient (CLI) | payer MEDICARE ==
[~2020-08-23] MED LIST changes: +DEXTROSE 50% 50 ML SYRINGE As Ordered ONE; +NITROGLYCERIN 2% OINT 1 GM *U/D* PKT TOP ONE; +NITROGLYCERIN IN D5W 25MG/250ML (100MCG/ML) As Ordered ONE; +VERAPAMIL 5MG/2ML VIAL As Ordered ONE
--- NOTE | 2020-08-23 08:34 | IRHP ---
[facility] IR Pre-Procedure H & P General Date of Service: Aug 23, 2020 Procedure: Same Day Surgery Interval History and Physical I have seen the patient and reviewed last H & P performed within 30 days. There is no significant interval change. History of Present Illness Chief Complaint The patient is a 70-year-old female admitted with a reason for visit of Mesenteric Angina. PRE-PROCEDURE DIAGNOSIS: Mesenteric . SMA occlusion. HEART: Normal rate. LUNGS: Normal breathing at rest. ASA Classification ASA Classification: III-Severe systemic dis. Mallampati Score: II NPO: Yes Problems with prior sedation: No Obstructive Sleep Apnea: No Plan moderate sedation Allergies Coded Allergies: captopril (Verified Allergy, Mild, itchy, 04/04/20) Home Medications Scheduled Allopurinol (Allopurinol), 1 TAB PO DAILY, (Reported) Aspirin (Ecotrin), 1 TAB PO BID, (Reported) Atorvastatin Calcium (Atorvastatin Calcium), 1 TAB PO QHS, (Reported) Brimonidine Tartrate/Timolol (Combigan 0.2%-0.5% Eye Drops), 1 DROP OU BID, (Reported) Calcium Citrate/Vitamin D3 (Citracal + D Maximum Caplet), 1 TAB PO BID, (Reported) Cyanocobalamin (Vitamin B-12) (Vitamin B-12), 1,000 MCG PO DAILY, (Reported) Duloxetine Hcl (Duloxetine HCl), 60 MG PO QPM, (Reported) Esomeprazole Magnesium (Nexium), 40 MG PO BID, (Reported) Ferrous Gluconate (Ferrous Gluconate), 324 MG PO DAILY, (Reported) Folic Acid/Vit B Complex and C (Super B Complex Tablet), 1 TAB PO DAILY, (Reported) Gabapentin (Gabapentin), 1 CAP PO TID, (Reported) Insulin Glargine,Hum.rec.anlog (Toujeo Max Solostar), 50 UNIT SC QHS, (Reported) Isradipine (Isradipine), 2.5 MG PO BID, (Reported) Latanoprost/Pf (Latanoprost 0.005% Eye Drop), 1 DROP QHS, (Reported) Memantine HCl (Memantine HCl), 5 MG PO BID, (Reported) Multivitamin (Multivitamins), 1 CAP PO DAILY, (Reported) Spironolactone (Spironolactone), 25 MG PO BID, (Reported) Tizanidine HCl (Tizanidine HCl), 4 MG PO BID, (Reported) Scheduled PRN Furosemide (Furosemide), 1 TAB PO BID PRN for SEE LABEL COMMENTS, (Reported) Nitroglycerin (Nitrostat), 0.4 MG SL for CHEST PAIN, (Reported) Miscellaneous Medications Insulin Aspart (Novolog Flexpen), 1 UNITS SC, (Reported) Discontinued Medications Lubiprostone (Amitiza), 24 MCG PO BID, (Reported) Discontinued Reason: Pt states not taking Sucralfate (Sucralfate), 1 GM PO ACHS, (Reported) Discontinued Reason: Pt states not taking VS, I&O, 24H, Fishbone Vital Signs/I&O Vital Signs Date Time Temp Pulse Resp B/P (MAP) Pulse Ox O2 Delivery O2 Flow Rate FiO2 08/23/20 08:11 97.2 90 18 99 Room Air GREG PERKINS MD Aug 23, 2020 08:34
[2020-08-23 16:00] VITALS: BP 131/68
--- NOTE | 2020-08-24 11:05 | IRPON ---
IR Postoperative Note Date Of Procedure: Aug 23, 2020 Time Of Procedure: 16:00 IR Postoperative Note IR Ultrasound-guided left radial artery access. IR Aortogram. IR Attempted superior mesenteric artery recanalization for stenting. IR Moderate sedation. Clinical Information:Mesenteric angina. SMA occlusion. Physician: Dr. Jean. Procedure: The patient was advised of the benefits, risks, and alternatives of the procedure and informed consent was obtained. A time out was performed with verification of the patient's name, MRN, site of procedure, and type of procedure to be performed. The patient was positioned in the supine position on the angiographic table. The site was prepped and draped in the usual sterile fashion. Moderate sedation was performed by the physician including the presence of an independent trained RN, who assisted in monitoring the patient's level of consciousness and physiological status. Following the administration of fentanyl and Versed, the physician spent 120 minutes of continuous kodw-my-mbvm time with the patient. Ultrasound of the left wrist demonstrates patent and pulsatile left radial artery measuring 1.6 mm. A Barbeau test was performed which demonstrates type A waveform. Lidocaine was used for local anesthesia. The left radial artery was accessed, under ultrasound guidance with a radial access kit. A short 0.018" Seneca wire was inserted and the needle was exchanged for a 5 [place] slender radial sheath.Radial cocktail of verapamil 2.5 mg, nitroglycerin 200 g and heparin 3000 units was administered through the radial sheath. The sheath was then hooked up to a heparinized saline flush bag. The guidewire and dilator were removed and a glide wire was advanced under fluoroscopy guidance to the subclavian artery. A pigtail catheter was advanced over the wire and, under fluoroscopy guidance, was used to catheterize the descending aorta. After successful catheterization of the abdominal aorta under fluoroscopy guidance, the pigtail catheter was removed over the wire and exchanged for an angled glide cath. The glide wire in conjunction with the catheter was used to catheterize the expected origin of the superior mesenteric artery. An angiogram was performed and this demonstrates heavily calcified abdominal aorta. The celiac artery is seen splitting into hepatic and splenic artery. The origin of the SMA is not identified. Bilateral renal arteries are present. Laterally there is a large collateral marginal artery. The angled glide catheter in conjunction with the wire was used under fluoroscopy guidance to try to catheterize the origin of the SMA. The catheter was exchanged over the wire for a MPB catheter. The MPB catheter in conjunction with the wire was used under fluoroscopic guidance to try to catheterize the superior mesenteric artery. Several combinations of catheter and wire were tried including down scaling to 018 system. The origin of the SMA could not be catheterized for stenting. Catheter and wire were removed. A TR band was applied to the left wrist and the sheath was removed without difficulty. Hemostasis achieved. The patient tolerated the procedure well and was returned to the PRU in stable condition. EBL: < 5 mL. Complications:None. Impression: 1. Failed femoral and radial approach endovascular attempt at SMA stenting in patient with mesenteric angina. 2. Patient will be referred for surgical bypass options. Thank you for this referral. Cc GREG Mora Dr., Dr., MD Aug 24, 2020 11:05
== END ==
LOC: M IRPRO 07:37
PROVIDERS: ATTEND Radiology Diagnostic Radiology
DX: K55.1 Chronic vascular disorders of intestine (principal); Z79.82 Long term (current) use of aspirin; Z79.899 Other long term (current) drug therapy; Z88.8 Allergy status to other drugs, medicaments and biological substances
CPT/HCPCS: 36245; 75625; 99152; 99153; C1769; C1887; C1894; J1200; J1644; J2250; J3010; Q9967

== ENCOUNTER → 2020-08-29 | Outpatient (CLI) | payer MEDICARE ==
[~2020-08-29] MED LIST changes: -DEXTROSE 50% 50 ML SYRINGE As Ordered ONE; -ISOVUE-300 61% 50ML VIAL As Ordered ONE; +ISOVUE-370 76% 100ML VIAL As Ordered ONE; -LIDOCAINE 1% MDV 20ML VIAL As Ordered ONE; -MIDAZOLAM INJ 2MG/2ML VIAL (J2250 PER 1MG) As Ordered ONE; -NITROGLYCERIN 2% OINT 1 GM *U/D* PKT TOP ONE; -NITROGLYCERIN IN D5W 25MG/250ML (100MCG/ML) As Ordered ONE; -PROMETHAZINE INJ 25 MG/ML VIAL (J2550) As Ordered ONE; -VERAPAMIL 5MG/2ML VIAL As Ordered ONE; -diphenhydrAMINE 50MG/ML VIAL (J1200) As Ordered ONE; -fentaNYL 100 MCG/2 ML INJECTION (J3010) As Ordered ONE
--- NOTE | 2020-08-29 13:27 | REP ---
INDICATION: VASCULAR DISORDER OF INTESTINE. COMPARISON: Abdomen/pelvis CT dated 11/17/2018. TECHNIQUE: Abdomen/pelvis CT with IV contrast and including post processing CT angiography of the celiac artery, superior mesenteric artery and inferior mesenteric artery. FINDINGS: There is significant stenosis at the origin of the celiac artery from calcified atheroma. There is significant stenosis at the origin of the superior mesenteric artery with calcified and noncalcified atheroma. There is a heavy atheromatous calcification in the SMA for the approximate 7-10 cm distal to the origin and occasional calcific plaque distal to this. There is moderate stenosis at the origin of the inferior mesenteric artery with noncalcified plaque. I suspect there is stenosis at the origin of the left renal artery. There is minimal narrowing at the origin of the right renal artery. I suspect stenosis at the origin of the left iliac artery from vessel tortuosity and kinking. There is a small volume of calcific plaque. Next I do not identify stenosis in the common femoral arteries. Vascular surgery consultation might be considered. The visualized lung vee are unremarkable. There are surgical clips in the upper abdomen compatible with cholecystectomy and bariatric surgery. The pancreas, spleen and adrenals are unremarkable. The kidneys demonstrate renal cortical atrophy but otherwise unremarkable. The abdominal aorta is unremarkable except for calcified atheroma. Pelvis: The bladder is unremarkable. The uterus, adnexa and bladder are unremarkable. The pelvic bowel loops are unremarkable. The appendix is unremarkable. 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 There is moderate stool stenosis from noncalcified plaque at the origin of the inferior mesenteric artery. I suspect stenosis at the origin of the left renal artery. Minimal narrowing at the origin of the right renal artery. I suspect stenosis at the origin of the left iliac artery from vessel tortuosity and kinking and a small volume of calcific plaque. Cholecystectomy and bariatric surgery. Consider vascular surgery consultation. <Electronically signed by Brandon Bernard > 08/29/20 [id number]
== END ==
LOC: M RAD 10:54
PROVIDERS: ATTEND Internal Medicine Nephrology
DX: K55.9 Vascular disorder of intestine, unspecified (principal)
CPT/HCPCS: 74174; Q9967

== ENCOUNTER → 2020-09-29 | Outpatient (REF) | payer MEDICARE ==
[~2020-09-29] MED LIST changes: +FERR324T21 PO; -FERR325T16 PO; -ISOVUE-370 76% 100ML VIAL As Ordered ONE
== END ==
LOC: M WUC 15:38
PROVIDERS: ATTEND Physician Assistant
DX: R09.81 Nasal congestion (principal)

== ENCOUNTER → 2020-12-05 | Outpatient (REF) | payer MEDICARE ==
[~2020-12-05] MED LIST changes: +GABA-283 PO; -GABA-845 PO
[2020-12-05 17:19] LABS: RHEUMATOID FACTOR QUANT < 10.0 IU/ML (<15.0); TOTAL PROTEIN 6.2 GM/DL (6.4-8.2)
[2020-12-05 17:27] LABS: FOLATE > 24.0 NG/ML
[2020-12-06 08:59] LABS: VITAMIN B12 LEVEL > 2000 PG/ML
[2020-12-07 14:49] LABS: DRVV SCREEN 68.3 SEC
[2020-12-07 14:56] LABS: PTT LUPUS TYPE ANTICOAG SCREEN 1.8 (0-1.2)
[2020-12-07 15:03] LABS: DRVV CONFIRM 46.9 SEC; LUPUS CONFIRM RATIO 1.3; NORMALIZED RATIO 1.38 (0.00-1.20)
[2020-12-08 11:45] LABS: ALBUMIN 3.11 GM/DL (3.29-5.55); ALBUMIN % 50.1 % (55.8-66.1); ALPHA-1-GLOBULIN % 9.1 % (2.9-4.9); ALPHA-1-GLOBULINS 0.56 GM/DL (0.17-0.41); ALPHA-2-GLOBULINS 1.26 GM/DL (0.42-0.99); ALPHA-2-GLOBULINS % 20.3 % (7.1-11.8); BETA-1-GLOBULINS 0.37 GM/DL (0.28-0.60); BETA-1-GLOBULINS % 5.9 % (4.7-7.2); BETA-2-GLOBULINS 0.32 GM/DL (0.19-0.55); BETA-2-GLOBULINS % 5.2 % (3.2-6.5); GAMMA GLOBULIN % 9.4 % (11.1-18.8); GAMMA GLOBULINS 0.58 GM/DL (0.65-1.58)
[2020-12-11 14:08] LABS: HEXAGONAL PHASE PHOSPHOLIPID 0 sec (0-11)
== END ==
LOC: M WUC 15:58
PROVIDERS: ATTEND Psychiatry & Neurology Neurology
DX: G62.9 Polyneuropathy, unspecified (principal); L02.413 Cutaneous abscess of right upper limb

== ENCOUNTER → 2020-12-05 | Outpatient (CLI) | payer MEDICARE ==
[~2020-12-05] MED LIST changes: +CLOP75TA2 PO; +LEVO50TA5 PO; +LOSA25TA13 PO; -LOSA25TA14 PO; +LOSA50TA28 PO; -LOSA50TA88 PO; +METO1TAB32 PO; +MULTTAB61 PO
== END ==
LOC: M WUC 12:23
PROVIDERS: ATTEND Physician Assistant
DX: L02.413 Cutaneous abscess of right upper limb (principal)

== ENCOUNTER → 2020-12-07 | Outpatient (CLI) | payer MEDICARE ==
[~2020-12-07] MED LIST changes: -CLOP75TA2 PO; -LEVO50TA5 PO; -LOSA25TA13 PO; +LOSA25TA14 PO; -LOSA50TA28 PO; +LOSA50TA88 PO; -METO1TAB32 PO; -MULTTAB61 PO
--- NOTE | 2020-12-07 16:12 | REP ---
INDICATION: LOWER ABDOMINAL PAIN. COMPARISON: None. TECHNIQUE: Supine and upright views were obtained FINDINGS: Intestinal gas pattern is nonspecific. There is no evidence of free subdiaphragmatic air. Gas and stool seen throughout the colon in no particular fashion. The organ silhouettes insofar as delineated are within normal limits. Surgical clips and michael are seen in the abdomen. The osseous structures are within normal limits. IMPRESSION: No plain radiographic evidence of acute disease, however, consider follow-up with CT. <Electronically signed by George Carranza > 12/07/20 [id number]
== END ==
LOC: M WUC 15:28
PROVIDERS: ATTEND Family Medicine
DX: R10.30 Lower abdominal pain, unspecified (principal)

== ENCOUNTER 2021-03-17 09:25 | Emergency (ER) | payer MEDICARE ==
[~2021-03-17] VITALS: Ht 142.2 cm; Wt 56.8 kg
--- NOTE | 2021-03-17 10:12 | REP ---
INDICATION: trauma. TECHNIQUE: AP pelvis two views right hip FINDINGS: There is mild bilateral hip joint space narrowing. There is no evidence of a pelvic fracture. Two views of the right hip show no acute fracture, dislocation, or subluxation. IMPRESSION: No acute osseous abnormality. Findings as described above. <Electronically signed by George Carranza > 03/17/21 [id number]
--- NOTE | 2021-03-17 10:16 | REP ---
INDICATION: fall. COMPARISON: 03/22/2015 TECHNIQUE: 5 mm contiguous transaxial sections were obtained from the skull base to the cerebral convexities. FINDINGS: The ventricles and sulci are consistent with the patient's age and unchanged from the prior exam.. There are no extra-axial fluid collections. There is no mass effect. The deep cerebral white matter is consistent with the patient's age and unchanged from the prior exam.. The orbital and petrous structures, cerebellopontine angles, and posterior fossa are unremarkable. The sella turcica, cavernous, and paracavernous structures are essentially unremarkable. The visualized portions of the paranasal sinuses and mastoid air cells are clear. Images of the skull base show no gross abnormality. IMPRESSION: No evidence of an acute intracranial hemorrhagic or non hemorrhagic event and no significant change compared to the prior exam. <Electronically signed by George Carranza > 03/17/21 [id number]
[2021-03-17 10:44] LABS: BASO % 0.5 % (0.0-1.0); EOS # 0.1 10^3/uL (0.0-0.5); EOS % 0.9 % (0.0-3.0); HEMATOCRIT 32.2 % (36.0-47.0); HEMOGLOBIN 9.2 g/dl (12.0-15.5); LYMPH # 1.3 10^3/uL (1.5-5.0); LYMPH % 16.6 % (24.0-44.0); MEAN CORPUSCULAR HEMOGLOBIN 29.6 pg (27.0-33.0); MEAN CORPUSCULAR HGB CONC 28.6 g/dl (32.0-36.5); MEAN CORPUSCULAR VOLUME 103.5 fl (80.0-96.0); MONO # 0.3 10^3/uL (0.0-0.8); MONO % 3.6 % (2.0-8.0); NEUTROPHILS # 6.3 10^3/uL (1.5-8.5); NEUTROPHILS % 78.1 % (36.0-66.0); PLATELET COUNT, AUTOMATED 268 10^3/uL (150-450); RED BLOOD COUNT 3.11 10^6/uL (4.00-5.40)
--- OUTSIDE RECORDS SUMMARY | 2021-03-17 10:45 | CCD | Continuity of Care Document ---
Author Author AriTonja hess [employer] Organization Unknown Address Unknown Phone Unavailable Care Team Providers Care Dress Designer Name Role Phone BuddyRobinson Unavailable Unavailable Unavailable [facility] Unavailable Unavailable Unavailable ArturoTiara willis Unavailable Nae Martinez Unavailable Debbie John Unavailable Unavailable Jessica Magaña Unavailable Problems Name Dates Details Pneumonia, unspecif ied organism (J18.9) 07-Mar-2021 Status: Active Medications Name Dates Details Ipratropium-Albuterol 0.5-2.5 (3) MG/3ML Inhale 4 times a day as needed for wheezes. Robinson Goodwin Active Aspirin EC 81 MG Robinson Goodwin* Start : 15-Mar-2021 Active Acetaminophen 325 MG Take every 4 hours as needed for fever and pain, do not exceed 4 per day. Maximu m daily doses is 3,000mg. Robinson Goodwin* Start : 15-Mar-2021 Active K-Tab 10 MEQ Robinson Goodwin* Start : 15-Mar-2021 Active Antacid Ultra Strength 1000-200 MG Take every 6hrs as needed for indigestion. Robinson Goodwin* Start : 15-Mar-2021 Active Magnesium Oxide (Elemental) 400 MG Robinson Goodwin* Start : 15-Mar-2021 Active Docusate Sodium 100 MG Robinson Goodwin* Start : 15-Mar-2021 Active Sucralfate 1 GM/10ML Take before meals and bedtime. Robinson Goodwin* Start : 15-Mar-2021 Active Lantus SoloStar 100 UNIT/ML Robinson Goodwin* Start : 15-Mar-2021 Active TiZANidine HCl 2 MG Take twice a day as needed for spasms. Robinson Goodwin* Start : 15-Mar-2021 Active Allopurinol 100 MG Robinson Goodwin* Start : 15-Mar-2021 Active Atorvastatin Calcium 10 MG Buddy, Robinson* Start : 15-Mar-2021 Active Clopidogrel Bisulfate 75 MG Buddy, Robinson* Start : 15-Mar-2021 Active DULoxetine HCl 30 MG Buddy, Robinson* Start : 15-Mar-2021 Active Multivitamin Chrystal Goodwinh* Start : 15-Mar-2021 Active Esomeprazole Magnesium 40 MG Chrystal Goodwinh* Start : 15-Mar-2021 Active Furosemide 20 MG Buddy, Robinson* Start : 15-Mar-2021 Active Gabapentin 400 MG Fish, Robinson* Start : 15-Mar-2021 Active Ferrous Gluconate 324 (38 Fe) MG Buddy, Robinson* Start : 15-Mar-2021 Active Levothyroxine Sodium 50 MCG Kolton Goodwinneth* Start : 15-Mar-2021 Active Memantine HCl 10 MG Buddy, Robinson* Start : 15-Mar-2021 Active Metoprolol Succinate ER 25 MG Kolton Goodwinneth* Start : 15-Mar-2021 Active Nitroglycerin 0.4 MG Sublingual, every 5 minutes as needed for chest pain. Buddy, Robinson* Start : 15-Mar-2021 Active Insulin Aspart 100 UNIT/ML Kolton Goodwinneth* Start : 15-Mar-2021 Active B-12 500 MCG take 1,000 MCG. Chrystal Goodwinh* Start : 15-Mar-2021 Active Xalatan 0.005 % Kolton Goodwinneth* Start : 15-Mar-2021 Active Allergies and Adverse Reactions Name Dates Details captopril (Allergy) Onset: 15-Mar-2021 Status: Active Results Date Description Value Details No Known Results Plan of Care Name Dates Details Instructions Diet:Consistent Carb, low sodi um diet. Ins truction Type: Nutrition education Payers * Medicare - [facility] * [facility]
--- OUTSIDE RECORDS SUMMARY | 2021-03-17 10:45 | CCD | Continuity of Care Document ---
Author Author AriTonja hess [employer]ated Organization Unknown Address Unknown Phone Unavailable Care Team Providers Care Sales Review Clerk Name Role Phone Robinson Goodwin Unavailable Unavailable Unavailable [facility] Unavailable Unavailable Unavailable Haris Tiara Unavailable MartinezNae Unavailable Unavailable Mireille Antonio Unavailable John Lewis Unavailable Unavailable Jessica Magaña Unavailable Problems Name [...] twice a day as needed for spasms. max daily dose 2 tabs Robinson Goodwin* Start : 15-Mar-2021 Active Allopurinol 100 MG Chrystal Goodwinh* Start : 15-Mar-2021 Active Atorvastatin Calcium 10 MG Chrystal Goodwinh* Start : 15-Mar-2021 Active Clopidogrel Bisulfate 75 MG Chrystal Goodwinh* Start : 15-Mar-2021 Active DULoxetine HCl 30 MG Chrystal Goodwinh* Start : 15-Mar-2021 Active Multivitamin Chrystal Goodwinh* Start : 15-Mar-2021 Active Esomeprazole Magnesium 40 MG Buddy, Robinson* Start : 15-Mar-2021 Active Furosemide 20 MG Buddy, Robinson* Start : 15-Mar-2021 Active Gabapentin 400 MG Chrystal Goodwinh* Start : 15-Mar-2021 Active Ferrous Gluconate 324 (38 Fe) MG Chrystal Goodwinh* Start : 15-Mar-2021 Active Levothyroxine Sodium 50 MCG Chrystal Goodwinh* Start : 15-Mar-2021 Active Memantine HCl 10 MG Chrystal Goodwinh* Start : 15-Mar-2021 Active Metoprolol Succinate ER 25 MG Kolton Goodwinneth* Start : 15-Mar-2021 Active Nitroglycerin 0.4 MG Sublingual, every 5 minutes as needed for chest pain if no relief call 911 Chrystal Goodwinh* Start : 15-Mar-2021 Active Insulin Aspart 100 UNIT/ML Chrystal Goodwinh* Start : 15-Mar-2021 Active B-12 500 MCG take 1,000 MCG. Buddy, Robinson* Start : 15-Mar-2021 Active Xalatan 0.005 % each eye Chrystal Goodwinh* Start : 15-Mar-2021 Active Allergies and Adverse Reactions Name Dates Details captopril (Allergy) Onset: 15-Mar-2021 Status: Active Results Date Description Value Details No Known Results Plan of Care Name Dates Details Instructions Diet:Consistent Carb, low sodi um diet. Ins truction Type: Nutrition education Payers * Medicare - [facility] * [facility]
--- OUTSIDE RECORDS SUMMARY | 2021-03-17 10:45 | CCD | Continuity of Care Document ---
Author Author CHATO, Tonja Simms Organization Unknown Address [address] [place] [address] Phone [phone] Care Team Providers Care Milk Powder Grinder Name Role Phone Flavio Chinchilla AUTM [phone] Robinson Goodwin D.O. AUTM [phone] Zach Lira M.D. AUTM [phone] Krzysztof Bocanegra M.D. AUTM [phone] [facility] Care Everywhere AUTM Problems Active Problems Provider Date Carotid artery occlusion Collin Nieves M.D. Onset: 12/10/19 15 Anxiety state Collin Nieves M.D. Onset: 12/16/2014 Atrial fibrillation Collin Nieves M.D. Onset: 12/16/2014 Acute myocardial infarction Collin Nieves M.D. Onset: 12/16 Essential hypertension Collin Nieves M.D. Onset: 12/16/2014 Pure hypercholesterolemia Collin Nieves M.D. Onset: 015 End-stage renal disease Collin Nieves M.D. Onset: 5 Chronic kidney disease stage 3 Onset: Note: Overview: followed by Dr Lira Coronary arteriosclerosis Onset: 021 Note: Overview: s/p CABG, Followed by Dr Bocanegra Depressive disorder Onset: 10/08/2019 Diabetes mellitus Onset: 09/15/2020 Diastolic heart failure Onset: 0 Epigastric pain Onset: 10/07/2019 Hypertensive disorder Onset: 09/15/2020 Infective pneumonia Onset: 10/11/2019 Left carotid artery stenosis Onset: 11/24 Mesenteric artery stenosis Onset: 2020 Paroxysmal atrial fibrillation Onset: Note: Overview: H/O, s/p atrial ablation Angina pectoris Onset: 06/18/2013 Arteriosclerosis of autologous vein coronary artery bypass g raft Onset: 01/28/2012 Atrial fibrillation Onset: 06/24/2012 Atrial flutter Onset: 01/28/2012 Benign essential hypertension Onset: 08/2011 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 Onset: 01/28/2012 Chronic diastolic heart failure Onset: 0 01/28/2012 Coronary arteriosclerosis Onset: 012 Dietary management surveillance Onset: 0 02/17/2017 Electrocardiogram abnormal Onset: 2016 Essential hypertension Onset: 12/21/2014 History of coronary artery bypass grafting Onset: 01/16/2016 Mixed hyperlipidemia Onset: 07/28/2017 Obesity Onset: 07/22/2013 Old myocardial infarction Onset: 012 Precordial pain Onset: 06/24/2012 Preoperative cardiovascular examination Onset: 12/21/2014 Supraventricular premature beats Onset: 12/06/2020 Social History Type Date Description Comments Sex Unknown Tobacco Use Start: Unknown End: Unknown Former Cigar ette Smoker 1 1/2 Packs Daily ETOH Use Denies alcohol use Tobacco Use Start: Unknown End: Patient is a former smoker Smoking Status Reviewed: 02/09/21 Patient is a former smoker Allergies and adverse reactions Active Allergies Criticality Reaction | Severity Comments Date Captopril Unable to assess criticality Contact dermatitis 12/16/2014 Medications Active Medications SIG Qnty Indications Ordering Provide r Date Metoprolol Succinate ER 25mg Tablets ER 24HR 1 by mouth every day 90tabs I10 Krzysztof Bocanegra M.D. 12/06/2020 Plavix 75mg Tablets 1 by mouth every day Unknown 12/05/2020 Latanoprost 0.005% Solution 1 drop both eyes every night at bedtime Unknown 08/25 Allopurinol 100mg Tablets 1 by mouth every day Unknown 11/08/2018 Dulox[address] HCL 60[address] C[address] Part Take 1 Capsule By Mouth Every Day 90caps I10 Krzysztof Bocanegra M.D. 12/01/2017 Memantine HCL 5mg Tablets 1 by mouth twice daily Unknown 10/30/2017 Gabapentin 400mg Capsules 1 by mouth three times a day Unknown 02/16/2017 Vitamin B-12 1000mcg Tablets 1 by mouth every day Unknown 08/05/2016 Nitrostat 0.4mg Tablets Sub 1 sl every 5min x3 as needed for angina 25tabs Krzysztof Bocanegra M.D . 02/17/2009 Sucralfate 1gm Tablets four times a day ac and hs Unknown Calcium Carbonate 500mg Chewtabs 1 by mouth every day prn Unknown Ondansetron 4mg Tablets Dispers take 1 tablet (4 mg total) by mouth every 8 (eight) hours as needed for nausea Unknown Potassium Chloride Gina ER 10Meq Tablets ER 1 by mouth every day Unknown Lantus 100Unit/ML Solution 6 units bid Unknown Omeprazole 40mg Capsules DR 1 by mouth every day Unknown Amlodipine Besylate 5mg Tablets 2 every day Unknown Ferrous Sulfate 325mg Tablets qd Unknown Levothyroxine Sodium 50mcg Capsules qd Unknown Multivitamin Tablets 1 by mouth every day Unknown Docusate Sodium 100mg Capsules take 1 capsule (100 mg total) by mouth 2 (two) times a day Unknown Novolog Flexpen 100U nit/ML Solution Pen-Inject ss Unknown Brimonidine Tartrate 0.2% Solution Administer 1 drop to both eyes daily Unknown Aspirin Ec Low Dose 81mg Tablets D R Take 81 mg by mouth 2 (two) times a day Unknown Acetaminophen 325mg Tablets (2) every 4 hours as needed pain Unknown Atorvastatin Calcium 10mg Tablets every day Unknown History Medications Stool Softener 100mg Capsules 1 by mouth twice every day as needed Unknown 2020 - 01/25/2021 Tylenol Extra Strength 500mg Table ts 2 by mouth twice daily as needed Unknown 11/23 - 12/26/2020 Cephalexin 500mg Capsules 1 by mouth two times a day x10 days Unknown 12/05/2020 - 12/17/2020 Clopidogrel Bisulfate 75mg Tablets Take 1 tablet (75 mg total) by mouth daily 30tabs Unknown 09/17/2020 - 12/26/2020 Hydrocodone-Acetaminophen 5-325mg Tablets Take 1 tablet by mouth every 6 (six) hours as needed for pain iStop Reference #: [id number] Max Daily Amount: 4 tablets 15tabs Unknown 09/16/2020 - 10/17/2020 Mupirocin 2% Ointment Apply topically 2 (two) times a day Apply to each nare twice a day with a cotton swab, starting the five days before surgery. 22units Unknown - 12/26/2020 Immunizations CPT Code Status Date Vaccine Lot # [id number] Given 03/18/2014 Influenza Vaccin e Preservative & Antibiotic Free For Im Use 70145 Given 02/16/2014 Pneumococcal Vaccine 2Yrs Or Older Vital Signs Date Vital Result Comment 02/09/2021 10:10am BP Systolic Right Arm 130 mmHg BP Diastolic Right Arm 80 mmHg Heart Rate 72 /min Body Temperature 90.6 F Height 56 inches 4'8" Weight 137.00 lb Weight 62.143 kg BMI (Body Mass Index) 30.7 kg/m2 01/26/2021 10:03am BP Systolic Right Arm 120 mmHg BP Diastolic Right Arm 80 mmHg Heart Rate 68 /min Body Temperature 94.6 F Height 56 inches 4'8" Weight 122.00 lb Weight 55.339 kg BMI (Body Mass Index) 27.3 kg/m2 Results Test Acquired Date Facility Test Result H/L Range Note Xray 12/26/2020 [facility]enteric Artery Ultrasound <pending> Xray 11/13/2020 [facility] Mesenteric Artery Ultrasound <pending> Poct glucose 09/17/2020 N2N/CCD Import Glucose, Poc 239 mg/dL High 70 - 99 1 Basic metabolic panel 09/16/2020 N2N/CCD Import Sodium 138 mmol/L 136 - 145 Potassium 3.7 mmol/L 3.6 - 5.2 Chloride 105 mmol/L 100 - 108 Co2 27 mmol/L 22 - 31 Anion Gap 6 mmol/L Low 7 - 16 Urea nitrogen 34 mg/dL High 7 - 24 Creatinine 1.55 mg/dL High 0.60 - 1.00 BUN/Creatinine Ratio 21.9 High 10.0 - 20.0 Ratio Glucose 41 mg/dL Critical low 70 - 99 2 Calcium 7.8 mg/dL Low 8.4 - 10.2 GFR MDRD Non Af Amer 33 Low >59 ml/min/1.73m2 GFR MDRD Af Amer 40 Low >59 ml/min/1.73m2 Glom Filt Rate, Est See Notes 3 1 PERFORMED BY [facility] CLINICAL ST AFF 2 ALERTED CRITICAL RESULT TO R [place]SE(205) [place] [address] ON 09/16/20 [place]05 [place] [address] 3 NORMAL KIDNEY FUNCTION OR MILD DISEASE - GFR >OR= 60 CHRONIC KIDNEY DISEASE - GFR 15 - 59 RENAL FAILURE - GFR <15 Est. GFR calculation based on the MDRD study equation, which assumes a steady state for creatinine. Est. GFR should not be used for medication dosing. Procedures Date Code Description Status 12/30/2020 38695 Arterial Catheterization Or Jelena ulation Percutaneous Completed 12/30/2020 50779 Ins Non-Tunneled Catheter Comple dori 12/30/2020 62478 Ileo Mesenteric Bypass Completed 12/29/2020 98292 [facility] Care Level 2 Completed 12/26/2020 08652 Office/Outpatient Established Mo d MDM 30-39 Min Completed 12/26/2020 79553 Duplex Scan Arterial Inflow/Venous Outflow LTD Abd/Pelv/Retroper Completed 11/13/2020 38608 Office/Outpatient Established Lo w MDM 20-29 Min Completed 11/13/2020 56876 Duplex Scan Arterial Inflow/Venous Outflow LTD Abd/Pelv/Retroper Completed 10/18/2020 32858 Office/Outpatient Established Lo w MDM 20-29 Min Completed 09/15/2020 93490 Moderate Sedation Se rvices; Same Phys Intl 15 Mins; PT >= 5 Years Completed 09/15/2020 22722 Transcatheter Placement Intravas cular Stent Initial Artery Completed 09/15/2020 89302 Catheter Placement A rterial System 1St Order Abdom/Pelv/Low Extr Completed 08/30/2020 10864 Office/Outpatient Established Mo d MDM 30-39 Min Completed Medical Devices Description No Information Available Encounters Type Date Location Provider Dx Diagnosis Office Visit 02/09/2021 10:15a Main Office Collin Nieves M.D. Z48.81 2 Encntr for surgical aftcr following surgery on the circ sys Office Visit 01/26/2021 10:15a Main Office Collin Nieves M.D. Z48.81 2 Encntr for surgical aftcr following surgery on the circ sys Office Visit 12/29/2020 5:00p Main Office Collin Nieves M.D. K55.1 Chronic vascular disorders of intestine R10.84 Generalized abdominal pain Z98.84 Bariatric surgery status Office Visit 12/26/2020 1:45p Main Office MATHEW Fatima K55.1 Chronic vascular disorders of intestine Z95.828 Presence of other vascular i mplants and grafts Office Visit 11/13/2020 3:15p Main Office Akhil Barron M.D. K55.1 Chronic vascular disorders of intestine Z48.812 Encntr for surgical aftcr fo llowing surgery on the circ sys Office Visit 10/18/2020 3:15p Main Office Akhil Barron M.D. Z48.812 Encntr for surgical aftcr following surgery on the circ sys Office Visit 08/30/2020 8:30a Main Office Collin Nieves M.D. K55.1 Chronic vascular disorders of intestine Assessments Date Code Description Provider 02/09/2021 Z48.812 Encounter for surgic al aftercare following surgery on the circulatory system Collin Nieves M.D. 01/26/2021 Z48.812 Encounter for surgic al aftercare following surgery on the circulatory system Collin Nieves M.D. 12/30/2020 K55.1 Chronic vascular disorders of in testine Akhil Barron M.D. 12/30/2020 K55.069 Acute infarction of intestine, p art and extent unspecified Akhil Barron M.D. 12/30/2020 Z95.828 Presence of other vascular impla nts and grafts Akhli Barron M.D. 12/30/2020 Z98.84 Bariatric surgery status Akhil Barron M.D. 12/29/2020 K55.1 Chronic vascular disorders of in madhaviestela Nieves M.D. 12/29/2020 R10.84 Generalized abdominal pain Collin Nieves M.D. 12/29/2020 Z98.84 Bariatric surgery status Collin Nieves M.D. 12/26/2020 K55.1 Chronic vascular disorders of in testestela Nieves M.D. 12/26/2020 K55.1 Chronic vascular disorders of in testine MATHEW Fatima 12/26/2020 Z48.812 Encounter for surgic al aftercare following surgery on the circulatory system Collin Nieves M.D. 12/26/2020 K55.1 Chronic vascular disorders of in testestela [facility] 12/26/2020 Z95.828 Presence of other vascular impla nts and grafts MATHEW Fatima 12/26/2020 Z48.812 Encounter for surgic al aftercare following surgery on the circulatory system [facility] 11/13/2020 K55.1 Chronic vascular disorders of in madhaviestela Nieves M.D. 11/13/2020 K55.1 Chronic vascular disorders of in testestela Barron M.D. 11/13/2020 Z48.812 Encounter for surgic al aftercare following surgery on the circulatory system Collin Nieves M.D. 11/13/2020 K55.1 Chronic vascular disorders of in testine [facility] 11/13/2020 Z48.812 Encounter for surgic al aftercare following surgery on the circulatory system Akhil Barron M.D. 11/13/2020 Z48.812 Encounter for surgic al aftercare following surgery on the circulatory system [facility] 10/18/2020 Z48.812 Encounter for surgic al aftercare following surgery on the circulatory system Akhil Barron M.D. 09/15/2020 K55.1 Chronic vascular disorders of in testine Akhil Barron M.D. 09/15/2020 I70.8 Atherosclerosis of other arterie s Akhil Barron M.D. 08/30/2020 K55.1 Chronic vascular disorders of in testine Collin Nieves M.D. Plan of Treatment Future Appointment(s):* 03/09/2021 10:45 am - Collin Nieves M.D. at Main Office * 05/16/2021 2:15 pm - Akhil Barron M.D. at Main Office * 04/02/2021 9:00 am - Vascular Lab at Main Office 02/09/2021 - Collin Nieves M.D.* Z48.812 Encntr for surgical aftcr following surgery on the circ sys Functional Status Description No Information Available Mental Status Description No Information Available Referrals Description No Information Available
--- OUTSIDE RECORDS SUMMARY | 2021-03-17 10:45 | CCD | Continuity of Care Document ---
Author Author CHATO, Tonja Simms Organization Unknown Address [address] [place] [address] Phone [phone] Care Team Providers Care Development Vice President Name Role Phone Flavio Chinchilla AUTM [phone] Robinson Goodwin D.O. AUTM [phone] Zach iLra M.D. AUTM [phone] Krzysztof Bocanegra M.D. AUTM [phone] [facility] Care Everywhere AUTM Problems Active Problems Provider [...] is a former smoker Smoking Status Reviewed: 03/09/21 Patient is a former smoker Allergies and [...] as needed for pain iStop Reference #: [id number] Max Daily Amount: 4 tablets 15tabs Unknown 09/16/2020 - 10/17/2020 Mupirocin 2% Ointment Apply topically 2 (two) times a day Apply to each nare twice a day with a cotton swab, starting the five days before surgery. 22units Unknown - 12/26/2020 Immunizations CPT Code Status Date Vaccine Lot # [id number] Given 03/18/2014 Influenza Vaccin e Preservative & Antibiotic Free For Im Use 64747 Given 02/16/2014 Pneumococcal Vaccine 2Yrs Or Older Vital Signs Date Vital Result Comment 03/09/2021 10:42am BP Systolic Right Arm 120 mmHg BP Diastolic Right Arm 80 mmHg Heart Rate 68 /min Body Temperature 94.0 F Height 56 inches 4'8" Weight 129.00 lb Weight 58.514 kg BMI (Body Mass Index) 28.9 kg/m2 02/09/2021 10:10am BP Systolic Right Arm 130 mmHg BP Diastolic Right Arm 80 mmHg Heart Rate 72 /min Body Temperature 90.6 F Height 56 inches 4'8" Weight 137.00 lb Weight 62.143 kg BMI (Body Mass Index) 30.7 kg/m2 Results Test Acquired Date Facility Test [...] Est See Notes 3 1 PERFORMED BY [facility] CLINICAL ST AFF 2 ALERTED CRITICAL RESULT TO R [place](205) [place] [address] ON 09/16/20 [place]05 [place] [address] 3 NORMAL KIDNEY FUNCTION OR MILD DISEASE - GFR >OR= 60 CHRONIC KIDNEY DISEASE - GFR 15 - 59 RENAL FAILURE - GFR <15 Est. GFR calculation based on the MDRD study equation, which assumes a steady state for creatinine. Est. GFR should not be used for medication dosing. Procedures Date Code Description Status 12/30/2020 79813 Arterial Catheterization Or Jelena ulation Percutaneous Completed 12/30/2020 34537 Ins Non-Tunneled Catheter Comple dori 12/30/2020 88792 Ileo Mesenteric Bypass Completed 12/29/2020 61705 [facility] Care Level 2 Completed 12/26/2020 18409 Office/Outpatient Established Mo d MDM 30-39 Min Completed 12/26/2020 73918 Duplex Scan Arterial Inflow/Venous Outflow LTD Abd/Pelv/Retroper Completed 11/13/2020 00877 Office/Outpatient Established Lo w MDM 20-29 Min Completed 11/13/2020 59097 Duplex Scan Arterial Inflow/Venous Outflow LTD Abd/Pelv/Retroper Completed 10/18/2020 76323 Office/Outpatient Established Lo w MDM 20-29 Min Completed 09/15/2020 26227 Moderate Sedation Se rvices; Same Phys Intl 15 Mins; PT >= 5 Years Completed 09/15/2020 04015 Transcatheter Placement Intravas cular Stent Initial Artery Completed 09/15/2020 91495 Catheter Placement A rterial System 1St Order Abdom/Pelv/Low Extr Completed Medical Devices Description No Information Available Encounters Type Date Location Provider Dx Diagnosis Office Visit 02/09/2021 10:15a Main Office Collin Nieves M.D. Z48.81 2 Encntr for surgical aftcr following surgery on the [facility] sys Office Visit 01/26/2021 10:15a Main Office Collin Nieves M.D. Z48.81 2 Encntr for surgical aftcr following surgery on the [facility] sys Office Visit 12/29/2020 5:00p Main Office [...] surgical aftcr fo llowing surgery on the [facility] sys Office Visit 10/18/2020 3:15p Main Office Akhil Barron M.D. Z48.812 Encntr for surgical aftcr following surgery on the [facility] sys Assessments Date Code Description Provider 02/09/2021 Z48.812 [...] of other vascular impla nts and grafts Akhil Barron M.D. 12/30/2020 Z98.84 Bariatric surgery status Akhil Barron M.D. 12/29/2020 K55.1 Chronic vascular disorders of in testine Collin Fabian. Chato, M.D. 12/29/2020 R10.84 Generalized abdominal pain Collin Nieves M.D. 12/29/2020 Z98.84 Bariatric surgery status Collin Nieves M.D. 12/26/2020 K55.1 Chronic vascular disorders of in nallely Nieves M.D. 12/26/2020 K55.1 Chronic vascular disorders of in testine MATHEW Fatima 12/26/2020 Z48.812 Encounter for surgic al aftercare following surgery on the circulatory system Collin Nieves M.D. 12/26/2020 K55.1 Chronic vascular disorders of in nallely [facility] 12/26/2020 Z95.828 Presence of other vascular impla nts and grafts MATHEW Fatima 12/26/2020 Z48.812 Encounter for surgic al aftercare following surgery on the circulatory system [facility] 11/13/2020 K55.1 Chronic vascular disorders of in madhaviestela Nieves M.D. 11/13/2020 K55.1 Chronic vascular disorders of in madhaviestela Barron M.D. 11/13/2020 Z48.812 Encounter for surgic al aftercare following surgery on the circulatory system Collin Nieves M.D. 11/13/2020 K55.1 Chronic vascular disorders of in madhaviestela [facility] 11/13/2020 Z48.812 Encounter for surgic al aftercare following surgery on the circulatory system Akhil Barron M.D. 11/13/2020 Z48.812 Encounter for surgic al aftercare following surgery on the circulatory system Vascular Lab 10/18/2020 Z48.812 Encounter for surgic al aftercare following surgery on the circulatory system Akhil Barron M.D. 09/15/2020 K55.1 Chronic vascular disorders of in nallely Barron M.D. 09/15/2020 I70.8 Atherosclerosis of other arterie s Akhil Barron M.D. Plan of Treatment Future Appointment(s):* 09/17/2021 10:00 am - Vascular Lab at Main Office * 05/16/2021 2:15 pm [...]
--- OUTSIDE RECORDS SUMMARY | 2021-03-17 10:45 | CCD | Continuity of Care Document ---
Author Author CHATO, Tonja Simms Organization Unknown Address [address] [place] [address] Phone [phone] Care Team Providers Care Technical Healthcare Consultant Name Role Phone Flavio Chinchilla AUTM [phone] Robinson Goodwin D.O. AUTM [phone] Zach Lira M.D. AUTM [phone] Krzysztof Bocanegra M.D. AUTM [phone] [facility] Care Everywhere AUTM [phone] Problems Active Problems Provider Date Carotid artery [...] as needed for pain iStop Reference #: [id number] Max Daily Amount: 4 tablets 15tabs Unknown 09/16/2020 - 10/17/2020 Mupirocin 2% Ointment Apply topically 2 (two) times a day Apply to each nare twice a day with a cotton swab, starting the five days before surgery. 22units Unknown - 12/26/2020 Immunizations CPT Code Status Date Vaccine Lot # [id number] Given 03/18/2014 Influenza Vaccin e Preservative & Antibiotic Free For Im Use 63191 Given 02/16/2014 Pneumococcal Vaccine 2Yrs Or Older [...] Est See Notes 3 1 PERFORMED BY [facility] CLINICAL ST AFF 2 ALERTED CRITICAL RESULT TO R OSE(205) [place] [address] ON 09/16/20 [place] 0905 [place] [address] 3 NORMAL KIDNEY FUNCTION OR MILD DISEASE - GFR >OR= 60 CHRONIC KIDNEY DISEASE - GFR 15 - 59 RENAL FAILURE - GFR <15 Est. GFR calculation based on the MDRD study equation, which assumes a steady state for creatinine. Est. GFR should not be used for medication dosing. Procedures Date Code Description Status 12/30/2020 21133 Arterial Catheterization Or Jelena ulation Percutaneous Completed 12/30/2020 92913 Ins Non-Tunneled Catheter Comple dori 12/30/2020 63907 Ileo Mesenteric Bypass Completed 12/29/2020 42855 [facility] Care Level 2 Completed 12/26/2020 16969 Office/Outpatient Established Mo d MDM 30-39 Min Completed 12/26/2020 74239 Duplex Scan Arterial Inflow/Venous Outflow LTD Abd/Pelv/Retroper Completed 11/13/2020 15993 Office/Outpatient Established Lo w MDM 20-29 Min Completed 11/13/2020 31201 Duplex Scan Arterial Inflow/Venous Outflow LTD Abd/Pelv/Retroper Completed 10/18/2020 09038 Office/Outpatient Established Lo w MDM 20-29 Min Completed 09/15/2020 68225 Moderate Sedation Se rvices; Same Phys Intl 15 Mins; PT >= 5 Years Completed 09/15/2020 88729 Transcatheter Placement Intravas cular Stent Initial Artery Completed 09/15/2020 01296 Catheter Placement A rterial System 1St Order Abdom/Pelv/Low Extr Completed Medical Devices Description No Information Available Encounters Type Date Location Provider Dx Diagnosis Office Visit 02/09/2021 10:15a Main Office Collin Nieves M.D. Z48.81 2 Encntr for surgical aftcr following surgery on the [facility] sys Office Visit 01/26/2021 10:15a Main Office Collin Nieves M.D. Z48.81 2 Encntr for surgical aftcr following surgery on the [facility] sys Office Visit 12/29/2020 5:00p Main [...] surgical aftcr fo llowing surgery on the [facility] sys Office Visit 10/18/2020 3:15p Main Office Akhil Barron M.D. Z48.812 Encntr for surgical aftcr following surgery on the [facility] sys Assessments Date Code Description Provider [...]
--- OUTSIDE RECORDS SUMMARY | 2021-03-17 10:45 | CCD | Continuity of Care Document ---
Author Author AriTonja hess Automated Organization Unknown Address Unknown Phone Unavailable Care Team Providers Care Postpartum Rn Name Role Phone BuddyRobinson Unavailable Unavailable Unavailable [facility] Unavailable Unavailable Unavailable ArturoTiara willis Unavailable Nae [...] Type: Nutrition education Payers * Medicare - [facility] * [facility]
--- OUTSIDE RECORDS SUMMARY | 2021-03-17 10:45 | CCD | Continuity of Care Document ---
Author Author AriTonja hess Automated Organization Unknown Address Unknown Phone Unavailable Care Team Providers Care Hydroelectric Powerplant Supervisor Name Role Phone BuddyRobinson Unavailable Unavailable Unavailable [facility] Unavailable Unavailable Unavailable ArturoTiara willis Unavailable aNe Martinez Unavailable Debbie John Unavailable Unavailable Jessica [...] Type: Nutrition education Payers * Medicare - [facility] * [facility]
--- OUTSIDE RECORDS SUMMARY | 2021-03-17 10:46 | CCD | Continuity of Care Document ---
Author Author Vascular Lab, Tonja Simms Organization Unknown Address [address] [place] [address] Phone Unavailable Care Team Providers Care Bootmaker Hand Name Role Phone Flavio Chinchilla AUTM [phone] Robinson Goodwin D.O. AUTM [phone] Zach Lira M.D. AUTM [phone] Krzysztof Bocanegra M.D. AUTM [phone] [facility] Everywhere AUTM Problems Active Problems Provider Date [...] is a former smoker Smoking Status Reviewed: 12/26/20 Patient is a former smoker Allergies, Adverse Reactions, Alerts Active Allergies Reaction Severity Comments Date Captopril Contact dermatitis 5 Medications Active Medications SIG Qnty Indications Ordering Provide r Date Metoprolol Succinate ER 25mg Tablets ER 24HR 1 by mouth every day 90tabs I10 Krzysztof Bocanegra M.D. 12/06/2020 Plavix 75mg Tablets 1 by mouth every day Unknown 12/05/2020 Stool Softener 100mg Capsules 1 by mouth twice every day as needed Unknown 2020 Spironolactone 25mg Tablets 1 by mouth bid Unknown 07/27/2020 Isradipine 2.5mg Capsules Take 1 Capsule By Mouth Twice Daily 180caps I10 Krzysztof Bocanegra M.D. 2019 Ferrous Gluconate 324(38Fe) mg Tab lets 1 by mouth once a day Unknown 09/16/2019 Latanoprost 0.005% Solution 1 drop both eyes every night at bedtime Unknown 08/25 Allopurinol 100mg Tablets 1 by mouth every day Unknown 11/08/2018 Duloxetine HCL 60mg Caps DR Whitney Take 1 Capsule By Mouth Every Day [...] angina 25tabs Krzysztof Bocanegra M.D . 02/17/2009 Citracal Maximum [id number]-Posg Ta blets daily Unknown Novolog Flexpen 100U nit/ML Solution Pen-Inject ss Unknown Acetaminophen ER 650mg Tablets ER Take 650 mg by mouth every 8 (eight) hours as needed for pain Unknown Brimonidine Tartrate 0.2% Solution Administer 1 drop to both eyes daily Unknown Tizanidine HCL 2mg Tablets Take 2 mg by mouth 2 (two) times a day Unknown Toujeo Solostar 300U nit/ML Solution Pen-Inject Inject 30 Units under the skin nightly Un known Furosemide 20mg Tablets Take 20 mg by mouth 2 (two) times a day Unknown Aspirin Ec Low Dose 81mg Tablets D R Take 81 mg by mouth 2 (two) times a day Unknown Atorvastatin Calcium 10mg Tablets every day Unknown Centrum Tablets every day Unknown History Medications Tylenol Extra Strength 500mg Table ts 2 [...] as needed for pain iStop Reference #: [id number] Max Daily Amount: 4 tablets 15tabs Unknown 09/16/2020 - 10/17/2020 Mupirocin 2% Ointment Apply topically 2 (two) times a day Apply to each nare twice a day with a cotton swab, starting the five days before surgery. 22units Unknown - 12/26/2020 Immunizations CPT Code Status Date Vaccine Lot # [id number] Given 03/18/2014 Influenza Vaccin e Preservative & Antibiotic Free For Im Use 11103 Given 02/16/2014 Pneumococcal Vaccine 2Yrs Or Older Vital Signs Date Vital Result Comment 12/26/2020 1:10pm BP Systolic Right Arm 180 mmHg BP Diastolic Right Arm 90 mmHg Body Temperature 95.8 F 11/13/2020 3:02pm BP Systolic Right Arm 118 mmHg BP Diastolic Right Arm 60 mmHg Body Temperature 95.9 F Height 55 inches 4'7" Weight 120.00 lb Weight 54.432 kg BMI (Body Mass Index) 27.9 kg/m2 Results Test Acquired Date Facility Test [...] Est See Notes [address] [facility] ST AFF 2 ALERTED CRITICAL RESULT TO R [place]SE(205) [place]5 [place] [address] ON 09/16/20 [place]05 [place] [address] 3 NORMAL KIDNEY FUNCTION OR MILD DISEASE - GFR >OR= 60 CHRONIC KIDNEY DISEASE - GFR 15 - 59 RENAL FAILURE - GFR <15 Est. GFR calculation based on the MDRD study equation, which assumes a steady state for creatinine. Est. GFR should not be used for medication dosing. Procedures Date Code Description Status 12/26/2020 39937 Duplex Scan Arterial Inflow/Venous Outflow LTD Abd/Pelv/Retroper Completed 11/13/2020 87728 Duplex Scan Arterial Inflow/Venous Outflow LTD Abd/Pelv/Retroper Completed 09/15/2020 22406 Moderate Sedation Se rvices; Same Phys Intl 15 Mins; PT >= 5 Years Completed 09/15/2020 50668 Transcatheter Placement Intravas cular Stent Initial Artery Completed 09/15/2020 42583 Catheter Placement A rterial System 1St Order Abdom/Pelv/Low Extr Completed Medical Devices Description No Information Available Encounters Type Date Location Provider Dx Diagnosis Office Visit 11/13/2020 3:15p Main Office Akhil [...] of intestine Assessments Date Code Description Provider 12/26/2020 K55.1 Chronic vascular disorders of in MATHEW Biswas 12/26/2020 K55.1 Chronic vascular disorders of in testine [facility] 12/26/2020 Z95.828 Presence of other vascular impla nts and grafts MATHEW Fatima 12/26/2020 Z48.812 Encounter for surgic al aftercare following surgery on the circulatory system [facility] Lab 11/13/2020 K55.1 Chronic vascular disorders of in nallely Collin Nieves M.D. 11/13/2020 K55.1 Chronic vascular disorders of in testine Akhil Barron M.D. 11/13/2020 Z48.812 Encounter for surgic al aftercare following surgery on the circulatory system Collin Nieves M.D. 11/13/2020 K55.1 Chronic vascular disorders of in testestela [facility] 11/13/2020 Z48.812 Encounter for surgic al aftercare following surgery on the circulatory system Akhil Barron M.D. 11/13/2020 Z48.812 Encounter for surgic al aftercare following surgery on the circulatory system [facility] Lab 10/18/2020 Z48.812 Encounter for surgic al aftercare following surgery on the circulatory system Akhil Barron M.D. 09/15/2020 K55.1 Chronic vascular disorders of in nallely Akhil Barron M.D. 09/15/2020 I70.8 Atherosclerosis of other arterie s Akhil Barron M.D. 08/30/2020 K55.1 Chronic vascular disorders of in testestela Collin Nieves M.D. Plan of Treatment Future Appointment(s):* 05/16/2021 2:15 pm - Akhil Barron M.D. at Main Office * 04/02/2021 10:15 am - Collin Nieves M.D. at Main Office * 04/02/2021 9:00 am - Vascular Lab at Main Office 12/26/2020 - MATHEW Fatima* K55.1 Chronic vascular disorders of intestine * Z95.828 Presence of other vascular implants and grafts Functional Status Description No Information Available Mental Status Description No Information Available Referrals Description No Information Available
--- OUTSIDE RECORDS SUMMARY | 2021-03-17 10:46 | CCD | Continuity of Care Document ---
Author Author Vascular Lab, Tonja iSmms Organization Unknown Address [address] [place] [address] Phone Unavailable Care Team Providers Care Water/Wastewater Engineer Name Role Phone Flavio Chinchilla AUTM [phone] Robinson Goodwin D.O. AUTM [phone] Zach Lira M.D. AUTM [phone] Krzysztof Bocanegra M.D. AUTM [phone] [facility] Everywhere AUTM [phone] Problems Active Problems Provider Date Carotid artery occlusion Coliln Nieves M.D. Onset: 12/10/19 15 Anxiety state Collin Nieves M.D. Onset: 12/16/2014 Atrial fibrillation Collin iNeves M.D. Onset: 12/16/2014 Acute myocardial infarction Collin [...] Krzysztof Bocanegra M.D . 02/17/2009 Citracal Maximum 034-031cr-Nptz Ta blets daily Unknown Novolog Flexpen 100U [...] as needed for pain iStop Reference #: [id number] Max Daily Amount: 4 tablets 15tabs Unknown 09/16/2020 - 10/17/2020 Mupirocin 2% Ointment Apply topically 2 (two) times a day Apply to each nare twice a day with a cotton swab, starting the five days before surgery. 22units Unknown - 12/26/2020 Immunizations CPT Code Status Date Vaccine Lot # [id number] Given 03/18/2014 Influenza Vaccin e Preservative & Antibiotic Free For Im Use 83274 Given 02/16/2014 Pneumococcal Vaccine 2Yrs Or Older [...] Est See Notes 3 1 PERFORMED BY [facility] CLINICAL ST AFF 2 ALERTED CRITICAL RESULT TO R OSE(205) [place] [address] ON 09/16/20 [place] [address]05 [place] [address] 3 NORMAL KIDNEY FUNCTION OR MILD DISEASE - GFR >OR= 60 CHRONIC KIDNEY DISEASE - GFR 15 - 59 RENAL FAILURE - GFR <15 Est. GFR calculation based on the MDRD study equation, which assumes a steady state for creatinine. Est. GFR should not be used for medication dosing. Procedures Date Code Description Status 12/26/2020 51343 Duplex Scan Arterial Inflow/Venous Outflow LTD Abd/Pelv/Retroper Completed 11/13/2020 44239 Duplex Scan Arterial Inflow/Venous Outflow LTD Abd/Pelv/Retroper Completed 09/15/2020 55071 Moderate Sedation Se rvices; Same Phys Intl 15 Mins; PT >= 5 Years Completed 09/15/2020 40199 Transcatheter Placement Intravas cular Stent Initial Artery Completed 09/15/2020 42833 Catheter Placement A rterial System 1St Order [...]
--- OUTSIDE RECORDS SUMMARY | 2021-03-17 10:46 | CCD | Continuity of Care Document ---
Author Author Tonja FREITAS MD Organization Unknown Address [address] [place] [address], [address] [place] [address] Phone [phone] Problems Description No Information Available Social History Type Date Description Comments Sex Unknown Allergies, Adverse Reactions, Alerts Description No Information Available Medications Description No Information Available Immunizations Description No Information Available Vital Signs Description No Information Available Results Description No Information Available Procedures Date Code Description Status 12/31/2020 49328 Subseq Hosp Visit Level 2 Comple dori 12/30/2020 89646 Subseq Hosp Visit Level 2 Comple dori 12/30/2020 64708 Initial Hosp Care Level 2 Comple dori Medical Devices Description No Information Available Encounters Type Date Location Provider Dx Diagnosis Office Visit 12/30/2020 7:21a Inpatient - [facility] Aakash Freitas MD R10.84 Generalized abdominal pain R63.4 Abnormal weight loss Assessments Date Code Description Provider 12/31/2020 R10.84 Generalized abdominal pain Radha Freitas MD 12/31/2020 R63.4 Abnormal weight loss Aakash castro MD 12/30/2020 R10.84 Generalized abdominal pain Radha Freitas MD 12/30/2020 R63.4 Abnormal weight loss Aakash castro MD Plan of Treatment No Information Available Functional Status Description No Information Available Mental Status Description No Information Available Referrals Description No Information Available
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
--- OUTSIDE RECORDS SUMMARY | 2021-03-17 10:46 | CCD | Continuity of Care Document ---
Author Author Tonja TOVAR NM Organization Unknown Address [address] [place] [address] [place] [address] Phone [phone] Care Team Providers Care Licensed Marine Engineer Name Role Phone Robinson Goodwin DO AUTM [phone] Problems Description No Information Available Social History Type Date Description Comments Sex Unknown ETOH Use Denies alcohol use Tobacco Use Start: Unknown End: Unknown Patient is a former smoker Smoking Status Reviewed: 12/20/20 Patient is a former smoker Allergies, Adverse Reactions, Alerts Active Allergies Reaction Severity Comments Date Captopril 04/13/2018 Medications Active Medications SIG Qnty Indications Ordering Provide r Date Cefdinir 300mg Capsules 1 tab by mouth twice a day x 7 days 14caps L02.413 Padilla Shultz JR. 12/20/2020 Atorvastatin Calcium 10mg Tablets TK 1 T PO qd Unknown Levothyroxine Sodium Unknown Metoprolol Succinate ER 25mg Unknown 0 Clopidogrel Bisulfate 75mg Tablets Unknown Ferrous Gluconate 239(27Fe) mg Tablets Unknown Allopurinol 100mg Tablets take three tabs per day Unknown Vitamin B12 1000mcg Tablets ER once aday Unknown Vitamin B Complex Tablets Unknown Nitrostat 0.4mg Tablets Sub Unknown Mvi Unknown Citracal +D3 250-107 -320gi-mm-Wtzx Chewtabs Unknown Aspir-[address] villafuerte e a day Unknown Novolog Flexpen 100U nit/ML Solution Pen-Inject Use Per Sliding Scale 6 To 40 Units Unkno wn Amitiza 24mcg Capsules TK One C PO bid Unknown Esomeprazole Magnesium 40mg Capsul es DR Take 1 Capsule By Mouth Once Daily Unknown Duloxetine HCL 60mg Caps DR Part TK 1 C PO qd Unknown Memantine HCL 5mg Tablets Take 1 Tablet By Mouth Twice A Day Unknown Mis Herrmannar 300U nit/ML Solution Pen-Inject Inject 70 Units SC AT Bedtime Unknown Furosemide 40mg Tablets TK 1 T PO bid With 20MG Furosemide Unknown Tizanidine HCL 2mg Tablets Take 1 Tablet By Mouth Twice Daily Unknown Spironolactone 25mg Tablets TK 1 T PO qd Unknown Gabapentin 400mg Capsules TK One C PO tid Unknown History Medications Cephalexin 500mg Tablets take 2 tabs by mouth twice a day for 10 days 40tabs L02.413 Holland Sevilla JR., M.D. 12/05/2020 - 12/20/2020 Immunizations Description No Information Available Vital Signs Date Vital Result Comment 12/20/2020 6:22pm BP Systolic 175 mmHg BP Diastolic 89 mmHg Heart Rate 81 /min Respiratory Rate 13 /min O2 % BldC Oximetry 98 % Body Temperature 98.2 F Weight 122.00 lb Height 64 inches 5'4" BMI (Body Mass Index) 20.9 kg/m2 Pain Level 0 12/08/2020 3:59pm BP Systolic 93 mmHg BP Diastolic 53 mmHg Heart Rate 77 /min Respiratory Rate 15 /min O2 % BldC Oximetry 97 % Body Temperature 98.4 F Weight 122.00 lb Height 54 inches 4'6" BMI (Body Mass Index) 29.4 kg/m2 Pain Level 1 Results Test Acquired Date Facility Test Result H/L Range Note Laboratory test finding 12/05/2020 [facility] [address] [place] [address] [phone] Wound Culture FULL REPORT IN L <SEE NOTE> Normal 1 Laboratory test finding 09/29/2020 [facility] [address] [place] [address] [phone] Nasal And Sinus Culture FULL REPORT IN L <SEE NOTE> N ormal 2, 3 1 FULL REPORT IN LAB NOTES ([facility]C W and [facility]). ORGANISM 1: STAPHYLOCOCCUS AUREUS QUANTITY OF GROWTH MODERATE ORGANISM 1: STAPHYLOCOCCUS AUREUS STAPHYLOCOCCUS AUREUS: REACTION ICR (INDUCIBLE CC RESISTANCE) IV ICR TEST RESULT TETRACYCLINE PO 250 mg qid 2 S PENICILLIN G IV 1 mu q6H >=0.5 R PENICILLIN G IV 1 mu q6h >=0.5 R PENICILLIN G PO 250mg q6h fasting >=0.5 R TRIMETHOPRIM/SULFAMETHOXAZOLE IV 160mg TMP & 800mg SMXq6h <=10 S TRIMETHOPRIM/SULFAMETHOXAZOLE PO Bactrim DS Bid <=10 S ERYTHROMYCIN IV 500mg q6h <=0.25 S ERYTHROMYCIN PO 500mg q6h <=0.25 S GENTAMICIN IV 80mg q8h <=0.5 S CLINDAMYCIN IV 600mg q6h 0.25 S CLINDAMYCIN PO 150mg q6h 0.25 S OXACILLIN IV 500mg q6h 1 S VANCOMYCIN IV 500mg q8h 1 S LINEZOLID (ZYVOX) IV 600MG Q12HR 2 S LINEZOLID (ZYVOX) PO 600MG Q12HR 2 S An isolate with a (+) POSITIVE ICR test is considered CLINDAMYCIN RESISTANT; however, clindamycin may still be effective in some patients. An isolate with a (-) NEGATIVE ICR test is considered CLIDAMYCIN SENSITIVE. Oxacillin result predicts susceptibility to all penicillinase-stable penicillins (Nafcillin, Dicloxacilin), Cephalosporins, Carbapenems, Amoxicillin/Clavulanate & Ampicillin/Sulbactam per CSLI standards. 2 Patient notified 3 FULL REPORT IN LAB NOTES (eC W and [facility]). NORMAL SUBHA PRESENT Procedures Date Code Description Status 12/20/2020 02339 Office/Outpatient Established Lo w MDM 20-29 Min Completed 12/20/2020 70484 Office/Outpatient Established Lo w MDM 20-29 Min Completed 12/08/2020 56190 Office/Outpatient Established Lo w MDM 20-29 Min Completed 12/05/2020 63555 Office/Outpatient Established Lo w MDM 20-29 Min Completed 12/05/2020 77405 I & D Abscess Simple Completed 09/29/2020 74727 Office/Outpatient Established Lo w MDM 20-29 Min Completed Medical Devices Description No Information Available Encounters Type Date Location Provider Dx Diagnosis Office Visit 12/20/2020 6:00p Main Office MATHEW Chi L02 .413 Cutaneous abscess of right upper limb Office Visit 12/08/2020 4:00p Main Office MATHEW Chi L02 .413 Cutaneous abscess of right upper limb Office Visit 12/05/2020 12:15p Main Office MATHEW Chi L02 .413 Cutaneous abscess of right upper limb Office Visit 09/29/2020 1:00p Main Office MATHEW Chi R09 .81 Nasal congestion 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 Assessments Date Code Description Provider 12/20/2020 L02.413 Cutaneous abscess of right upper limb MATHEW Chi 12/20/2020 L02.413 Cutaneous abscess of right upper limb Galina Funes NP 12/08/2020 L02.413 Cutaneous abscess of right upper limb MATHEW Chi 12/05/2020 L02.413 Cutaneous abscess of right upper limb MATHEW Chi 09/29/2020 R09.81 Nasal congestion MATHEW Umanzor 09/29/2020 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
--- OUTSIDE RECORDS SUMMARY | 2021-03-17 10:46 | CCD | Continuity of Care Document ---
Author Author Tonja CHOWDHURY DPM Organization Unknown Address [address] [place] [address], [address] [place] [address] Phone [phone] Care Team Providers Care Mental Telepathist Name Role Phone Monica Bedolla M.D. [phone] Robinson Goodwin M.D. 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 quit at the age of 43. Smoked 1.5 pack daily. Allergies, Adverse Reactions, Alerts Active Allergies Reaction Severity Comments Date Captopril NOT KNOWN 10/10/2010 Medications Active Medications SIG Qnty Indications Ordering Provide r Date Triple Antibiotic 3.5-400-5000 Oin tment apply to foot wound daily 28gm Andrew Chowdhury DPM 0 06/15/2020 Ammonium Lactate 12% Cream apply to feet daily 140gm Andrew Chowdhury DPM 06/15/2020 Ciclopirox 8% Solution apply to affected nail(s) as directed 6.6units Andrew Chowdhury DPM 015 Gabapentin Unknown Imdur 30mg Tablets ER 24HR Krzysztof Monique MD Hydrocodone/Acetaminophen 5-500mg Tablets Unknown Polyethylene Glycol 3350 3350NF Powder Unknown Omeprazole 40mg Capsules SKY Campbell Ibuprofen 600mg Tablets Unknown Oxycodone/Acetaminophen 5-325mg Tablets SKY Quinones Torsemide 20mg Tablets Krzysztof Monique MD Metaxalone 800mg Tablets [place] Dexilant 60mg Capsules DR Alvarez Amoxicillin 875mg Tablets SKY Quinones Timolol Maleate 0.5% Solution Unknown Metformin HCL ER 500mg Tablets ER 24HR SKY Quinones Lovaza 1gm Capsules Unknown Levemir Flexpen 100Unit/ML Solution SKY Quinones Humalog Kwikpen 100Unit/ML Solution SKY Quinones Nexium 40mg Capsules SYK Campbell Simvastatin 40mg Tablets [place] Onetouch Ultra Blue Strips Unknown Losartan Potassium 25mg Tablets Zach Lira MD Isosorbide Mononitrate ER 30mg Tablets ER 24HR Krzysztof Monique MD Glyburide 2.5mg Tablets SKY Quinones Carvedilol 3.125mg Tablets Krzysztof Monique MD Medications Administered in Office Medication SIG Qnty Indications Ordering Provider Date Inject Triamcinolone Acetonide 10 ML, SOCORRO C 7061-9298-99 Injection Andrew evans, DPM 03/23/2020 Inject Dexamthosone Phosphate 38856-709- 30 Injection Andrew Chowdhury, JUSTINM 020 Inject Triamcinolone Acetonide 10 ML, ND C 1637-6112-18 Injection Andrew evans, DPM 03/24/2018 Inject Dexamthosone Phosphate 51477-224- 30 Injection Andrew Chowdhury, JUSTINM 018 Inject Triamcinolone Acetonide 10 ML, SOCORRO C 8598-5584-97 Injection Andrew evans, DPM 10/01/2017 Inject Dexamthosone Phosphate 85305-832- 30 Injection Andrew Chowdhury, JUSTINM 018 Inject Dexamthosone Phosphate 51963-630- 30 Injection Andrew Chowdhury, JUSTINM 016 Inject Dexamthosone Phosphate 90692-522- 30 Injection Andrew Chowdhury, DPM 016 Immunizations Description No Information Available Vital Signs Date Vital Result Comment 12/08/2014 3:04pm Height 56 inches 4'8" Weight 155.00 lb BP Systolic 122 mmHg BP Diastolic 62 mmHg Heart Rate 70 /min BMI (Body Mass Index) 34.7 kg/m2 Pain Level 0 09/09/2011 3:16pm Height 56 inches 4'8" Weight 166.00 lb BP Systolic 151 mmHg BP Diastolic 63 mmHg Heart Rate 75 /min BMI (Body Mass Index) 37.2 kg/m2 Results Description No Information Available Procedures Date Code Description Status 12/08/2020 61048 Debridement 6-10 Nails Electric Completed 10/05/2020 75225 Office/Outpatient Established SF MDM 10-19 Min Completed 06/27/2020 19893 Office/Outpatient Established SF MDM 10-19 Min Completed Medical Devices Description No Information Available Encounters Type Date Location Provider Dx Diagnosis Office Visit 10/05/2020 3:00p [facility] Andrew Chowdhury DPM B35.1 Tinea unguium E10.42 Type 1 diabetes mellitus wit h diabetic polyneuropathy Office Visit 06/27/2020 1:30p [facility] Andrew Chowdhury DPM E10.621 Type 1 diabetes mellitus with foot ulcer L89.621 Pressure ulcer of left heel, stage 1 Assessments Date Code Description Provider 12/08/2020 B35.1 Tinea unguium Andrew Chowdhury, TITA 12/08/2020 E10.42 Type 1 diabetes mellitus with di abetic polyneuropathy Andrew Chowdhury DPM 10/05/2020 B35.1 Tinea unguium Andrew Chowdhury, TITA 10/05/2020 E10.42 Type 1 diabetes mellitus with di abetic polyneuropathy Andrew Chowdhury DPM 07/12/2020 E10.42 Type 1 diabetes mellitus with di abetic polyneuropathy Andrew Chowdhury, TITA 07/12/2020 M72.2 Plantar fascial fibromatosis And tima Chowdhury, TITA 06/27/2020 E10.621 Type 1 diabetes mellitus with fo ot ulcer Andrew Chowdhury DPM 06/27/2020 L89.621 Pressure ulcer of left heel, sta ge 1 Andrew Chowdhury DPM Plan of Treatment Future Appointment(s):* 02/16/2021 2:45 pm - Andrew Chowdhury DPM at [facility] Functional Status Description No Information Available Mental Status Description No Information Available Referrals Description No Information Available
--- OUTSIDE RECORDS SUMMARY | 2021-03-17 10:46 | CCD ---
Author Author Krzysztof Nickerson MD [facility] Organization Krzysztof Nickerson MD [facility] Address [address] [address] Phone Care Team Providers Care Creative Strategist Name Role Phone Krishan OWENS, Krzysztof CASPER Unavailable [phone] Robinson Goodwin DO PP [phone] Reason for Referral No Reason for Referral Recorded Problems Includes: Active, inactive, and resolved Problems All Visits Onset Date - Time Resolved Date - Time Provider Co ndition Status Dermatochalasis Both Eyelids 02/16/2020 - 3:08PM Krzysztof Nickerson MD, FACS Active Taking Medication For Diabetes Long-term Use of Oral H ypoglycemics 01/13/2018 - 12:00AM Krzysztof Nickerson MD, FACS Inactive Astigmatism 01/13/2018 - 12:00AM Krzysztof Nickerson MD, FACS Active Type 2 Diab W/ Diab Retinopathy Mild Nonprolif Without Macular Edema 04/02/2017 - 12:00AM Krzysztof Nickerson MD, FACS Inactive Pseudophakic - Both Eyes 07/24/2015 - 12:00AM Krzysztof Nickerson MD, FACS Active Taking Medication For Diabetes Long-term Use of Insulin 07/24/19 16 - 12:00AM Krzysztof Nickerson MD, FACS Active Posterior Capsule Opacification Eccentric Capsule Righ t Eye 05/09/2015 - 12:00AM Krzysztof Nickerson MD, FACS Active Pseudophakia 05/09/2015 - 12:00AM Krzysztof Nickerson MD, FACS Inactive Vitreous degeneration, bilateral 05/09/2015 - 12:00AM Krzysztof Nickerson MD, FACS Active Strabismus Paralytic Fourth Nerve Palsy Left Eye 03/24/2015 - 12:00AM Unknown - Unknown Krzysztof Nickerson MD, FACS Resolved 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 11/24/2014 - 12:00AM Krzysztof Nickerson MD, FACS Active Note: Unchanged Diabetic Retinopathy Macular Edema Both Eyes 02/23/2014 - 12:00A M Krzysztof Nickerson MD, FACS Inactive Note: Unchanged Corneal Dystrophy Endothelial Cornea Guttata 02/23/2014 - 12:00A M Krzysztof Nickerson MD, FACS Active Note: Unchanged - of both ey es Subconjunctival Hemorrhage Left Eye 02/23/2014 - :00AM Unknown - Unknown Krzysztof Nickerson MD, FACS Resolved Note: Unchanged Posterior Capsule Opacification Right Eye 11/30/2013 - :00AM Krzysztof Hancock MD, FACS Inactive Note: Unchanged Posterior Capsule Opacification Not Obscuring Vision 11/30/2013 - :00AM Krzysztof Nickerson MD, FACS Inactive Note: Unchanged Type 2 Diab W/ Diab Retinopathy Mod Nonproliferative W / Macular Edema 08/24/2013 - 12:00AM Krzysztof Nickerson MD, FACS Inactive Note: Unchanged - of the rig ht eye Diabetes Mellitus Secondary with Ophthalmic Manifestations 0 08/24/2013 - 12:00AM Krzysztof Nickerson MD, FACS Inactive Note: Unchanged Retina Edema Left Eye Macular 08/24/2013 - 12:00AM Krzysztof Nickerson MD, FACS Inactive Note: Resolved - Central 0.5 + Dermatochalasis Both Eyelids 11/23/2012 - :00AM Krzysztof Nickerson MD, FACS Inactive Note: Unchanged Diabetic Retinopathy Macular Edema Left Eye 11/23/2012 - 12:00AM Krzysztof Nickerson MD, FACS Inactive Note: Unchanged Diabetic Retinopathy Macular Edema Right Eye 11/23/2012 - :00A M Krzysztof Nickerson MD, FACS Inactive Note: Stable Retinopathy Hypertensive Both Eyes 11/23/2012 - 12:00AM Krzysztof Nickerson MD, FACS Active Note: Unchanged Borderline Glaucoma Ocular Hypertension Both Eyes 11/23/2012 - 2:00AM Krzysztof Nickerson MD, FACS Active Note: Unchanged Dry Eye Syndrome Both Eyes 11/23/2012 - 12:00AM Krzysztof Nickerson MD, FACS Active Note: Unchanged Vitreous Floaters Both Eyes 11/23/2012 - 12:00AM Krzysztof Nickerson MD, FACS Inactive Note: Unchanged Diabetes with Diabetic Retinopathy Nonproliferative Mi ld Both Eyes 05/26/2007 - 12:00AM Krzysztof Nickerson MD, FACS Inactive Note: Unchanged - - Moderate Plan of Treatment Pending Tests Order Diagnosis Results Due Ordering Provi riya Testing Ordered - Visual Field Visual Field 24-2 Type 2 di ab with mod nonp rtnop without macular edema, bi 04/09/21 Krzysztof Nickerson MD, FACS Future Appointments Date Time Location Provider 7 Month Follow-Up 2021 2:20PM [facility]zysztof Nickerson MD, FACS Assessments Includes: Assessments for all patient encounters Findings Encounter Date Assessment of long-term use of insulin 7 Month Follow- Up with Krzysztof Hancock MD, FACS 09/21/2020 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 7 Month Follow-Up with Krzysztof Nickerson MD, FACS 09/21/2020 Posterior capsule opacification of eccentric capsule i n the right eye 7 Month Follow-Up with Krzysztof Nickerson MD, FACS 09/21/2020 Pseudophakia in both eyes 7 Month Follow-Up with Krzysztof Tovar MD, FACS 09/21/2020 Type 2 diabetes with moderate nonprolife rative diabetic retinopathy without macular edema 7 Month Follow-Up with Krzysztof Nickerson MD, FACS Assessment of long-term use of insulin DFE and Testing with Krzysztof Nickerson MD, FACS 02/16/2020 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 D FE and Testing with Krzysztof Nickerson MD, FACS 02/16/2020 Posterior capsule opacification of eccentric capsule i n the right eye DFE and Testing with Krzysztof Nickerson MD, FACS 02/16/2020 Pseudophakia in both eyes DFE and Testing with Krzysztof Rader MD, FACS 02/16/2020 Type 2 diabetes with moderate nonprolife rative diabetic retinopathy without macular edema DFE and Testing with Krzysztof Nickerson MD, FACS 01/25 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 I OP CHECK with Krzysztof Nickerson MD, FACS 11/08/2019 Assessment of long-term use of insulin 5 Month Follow- Up and Testing with Krzysztof Nickerson MD, FACS 08/06/2019 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 5 Month Follow-Up and Testing with Krzysztof Nickerson MD, FACS 08/06/2019 Dry eye syndrome of both eyes 5 Month Follow-Up and Te sting with Krzysztof Hancock MD, FACS 08/06/2019 Essential hypertension 5 Month Follow-Up and Testin g with Krzysztof Nickerson MD, FACS 08/06/2019 History of nicotine dependence 5 Month Follow-Up and T esting with Krzysztof Nickerson MD, FACS 08/06/2019 Hypertensive retinopathy of both eyes 5 Month Follow-U p and Testing with Krzysztof Nickerson MD, FACS 08/06/2019 Type 2 diabetes with moderate nonprolife rative diabetic retinopathy without macular edema 5 Month Follow-Up and Testing with Krzysztof Nickerson MD, FACS 08/06/2019 Assessment of long-term use of insulin 1 Year Follow-U p with Krzysztof Nickerson MD, FACS 03/29/2019 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 1 Year Follow-Up with Krzysztof Nickerson MD, FACS 03/29/2019 Dry eye syndrome of both eyes 1 Year Follow-Up with Antonio Nickerson MD, FACS 03/29/2019 Endothelial corneal dystrophy cornea guttata 1 Year Fo llow-Up with Krzysztof Nickerson MD, FACS 03/29/2019 Posterior capsule opacification of eccentric capsule i n the right eye 1 Year Follow-Up with Krzysztof Nickerson MD, FACS 03/29/2019 Pseudophakia in both eyes 1 Year Follow-Up with Krzysztof Gooden MD, FACS 03/29/2019 Type 2 diabetes with moderate nonprolife rative diabetic retinopathy without macular edema 1 Year Follow-Up with Krzysztof Nickerson MD, FACS 08/2018 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 6 Month Follow-Up with Krzysztof Nickerson MD, FACS 07/24/2018 Posterior capsule opacification of eccentric capsule i n the right eye 6 Month Follow-Up with Krzysztof Nickerson MD, FACS 07/24/2018 Pseudophakia in both eyes 6 Month Follow-Up with Krzysztof Tovar MD, FACS 07/24/2018 Type 2 diabetes with moderate nonprolife rative diabetic retinopathy with macular edema 6 Month Follow-Up with Krzysztof Nickerson MD, FACS Type 2 diabetes with moderate nonprolife rative diabetic retinopathy without macular edema 6 Month Follow-Up with Krzysztof Nickerson MD, FACS Astigmatism 9 Month Follow-Up with Krzysztof lyons MD, FACS 01/13/2018 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 9 Month Follow-Up with Krzysztof Nickerson MD, FACS 01/13/2018 Long-term use of oral hypoglycemics 9 Month Follow-Up with Krzysztof Nickerson MD, FACS 01/13/2018 Posterior capsule opacification of eccentric capsule i n the right eye 9 Month Follow-Up with Krzysztof Nickerson MD, FACS 01/13/2018 Pseudophakia in both eyes 9 Month Follow-Up with Krzysztof Tovar MD, FACS 01/13/2018 Type 2 diabetes with moderate nonprolife rative diabetic retinopathy without macular edema 9 Month Follow-Up with Krzysztof Nickerson MD, FACS 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 8 Month Follow-Up with Krzysztof Nickerson MD, FACS 04/02/2017 Long-term use of insulin 8 Month Follow-Up with Krzysztof Gooden MD, FACS 04/02/2017 Posterior capsule opacification of eccentric capsule i n the right eye 8 Month Follow-Up with Krzysztof Nickerson MD, FACS 04/02/2017 Pseudophakia in both eyes 8 Month Follow-Up with Krzysztof Tovar MD, FACS 04/02/2017 Type 2 diabetes with mild nonproliferati ve diabetic retinopathy without macular edema 8 Month Follow-Up with Krzysztof Nickerson MD, FACS Type 2 diabetes with moderate nonprolife rative diabetic retinopathy without macular edema 8 Month Follow-Up with Krzysztof Nickerson MD, FACS Bilateral regular astigmatism REFRACTION with Stu clark DO 11/21/2016 Assessment of long-term use of insulin 2 Day Follow-Up with Krzysztof Nickerson MD, FACS 11/08/2016 Type 2 diabetes with moderate nonprolife rative diabetic retinopathy with macular edema 2 Day Follow-Up with Krzysztof Nickerson MD, FACS 10/24 Type 2 diabetes with moderate nonprolife rative diabetic retinopathy without macular edema 2 Day Follow-Up with Krzysztof Nickerson MD, FACS 10/24 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 6 Month Follow-Up with Krzysztof Nickerson MD, FACS 08/23/2016 Fuchs' endothelial corneal dystrophy 6 Month Follow-Up with Krzysztof Nickerson MD, FACS 08/23/2016 Long-term use of insulin 6 Month Follow-Up with Krzysztof Gooden MD, FACS 08/23/2016 Posterior capsule opacification of eccentric capsule i n the right eye 6 Month Follow-Up with Krzysztof Nickerson MD, FACS 08/23/2016 Pseudophakia in both eyes 6 Month Follow-Up with Krzysztof Tovar MD, FACS 08/23/2016 Type 2 diabetes with moderate nonprolife rative diabetic retinopathy with macular edema 6 Month Follow-Up with Krzysztof Nickerson MD, FACS Type 2 diabetes with moderate nonprolife rative diabetic retinopathy without macular edema 6 Month Follow-Up with Krzysztof Nickerson MD, FACS 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 7 Month Follow-Up with Krzysztof Nickerson MD, FACS 02/19/2016 Long-term use of insulin 7 Month Follow-Up with Krzysztof Gooden MD, FACS 02/19/2016 Posterior capsule opacification of eccentric capsule i n the right eye 7 Month Follow-Up with Krzysztof Nickerson MD, FACS 02/19/2016 Pseudophakia in both eyes 7 Month Follow-Up with Krzysztof Tovar MD, FACS 02/19/2016 Type 2 diabetes with moderate nonprolife rative diabetic retinopathy with macular edema right eye 7 Month Follow-Up with Krzysztof Nickerson MD, FACS Type 2 diabetes with moderate nonprolife rative diabetic retinopathy without macular edema left eye 7 Month Follow-Up with Krzysztof Nickerson MD, FACS 02/19/2016 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 6 Month Follow-Up with Krzysztof Nickerson MD, FACS 05/09/2015 Long-term use of insulin 6 Month Follow-Up with Krzysztof Gooden MD, FACS 05/09/2015 Posterior capsule opacification of eccentric capsule i n the right eye 6 Month Follow-Up with Krzysztof Nickerson MD, FACS 05/09/2015 Pseudophakia in both eyes 6 Month Follow-Up with Krzysztof Tovar MD, FACS 05/09/2015 Trichiasis of the eyelid 6 Month Follow-Up with Krzysztof Gooden MD, FACS 05/09/2015 Type 2 diabetes mellitus with moderate n onproliferative diabetic retinopathy without macular edema of the left eye 6 Month Follow-Up with Krzysztof Hancock MD, FACS 05/09/2015 Type 2 diabetes with moderate nonprolife rative diabetic retinopathy with macular edema right eye 6 Month Follow-Up with Krzysztof Nickerson MD, FACS 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 TRIAGE NON URGENT LEVEL 1 with Krzysztof Nickerson MD, FACS 03/24/2015 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 V ISUAL FIELD 24-2 with Krzysztof Nickerson MD, FACS 02/06/2015 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 6 Month Follow-Up with Krzysztof Nickerson MD, FACS 10/25/2014 Dermatochalasis of both eyes 6 Month Follow-Up with Antonio Nickerson MD, FACS 10/25/2014 Dry eye syndrome of both eyes 6 Month Follow-Up with Layne Nickerson MD, FACS 10/25/2014 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 6 Month Follow-Up with Krzysztof Nickerson MD, FACS 10/25/2014 Hypertensive retinopathy of both eyes 6 Month Follow-U p with Krzysztof Nickerson MD, FACS 10/25/2014 No rubeosis iridis of both eyes 6 Month Follow-Up with Krzysztof Nickerson MD, FACS 10/25/2014 Posterior capsule opacification in the right eye 6 Mon Follow-Up with Krzysztof Nickerson MD, FACS 10/25/2014 Posterior capsule opacification not obscuring vision 6 Month Follow-Up with Krzysztof Nickerson MD, FACS 10/25/2014 Secondary diabetes mellitus with ophthalmic manifestat ions 6 Month Follow-Up with Krzysztof Nickerson MD, FACS 10/25/2014 Type 2 diabetes with moderate nonprolife rative diabetic retinopathy with macular edema right eye 6 Month Follow-Up with Krzysztof Nickerson MD, FACS Type 2 diabetes with moderate nonprolife rative diabetic retinopathy without macular edema of the left eye 6 Month Follow-Up with Krzysztof lyons MD, FACS 10/25/2014 Vitreous floaters in both eyes 6 Month Follow-Up with Krzysztof Nickerson MD, FACS 10/25/2014 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 6 Month Follow-Up OCT Disc with Krzysztof Nickerson MD, FACS 02/23/2014 Dermatochalasis of both eyes 6 Month Follow-Up OCT Dis c with Krzysztof Nickerson MD, FACS 02/23/2014 Diabetic macular edema of both eyes 6 Month Follow-Up OCT Disc with Krzysztof Nickerson MD, FACS 02/23/2014 Dry eye syndrome of both eyes 6 Month Follow-Up OCT Di sc with Krzysztof Hancock MD, FACS 02/23/2014 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 6 Month Follow-Up OCT Disc with Krzysztof Nickerson MD, FACS 02/23/2014 Hypertensive retinopathy of both eyes 6 Month Follow-U p OCT Disc with Krzysztof Nickerson MD, FACS 02/23/2014 No rubeosis iridis 6 Month Follow-Up OCT Disc with Krzysztof Nickerson MD, FACS 02/23/2014 Posterior capsule opacification in the right eye 6 Mon th Follow-Up OCT Disc with Krzysztof Nickerson MD, FACS 02/23/2014 Posterior capsule opacification not obscuring vision 6 Month Follow-Up OCT Disc with Krzysztof Nickerson MD, FACS 02/23/2014 Secondary diabetes mellitus with ophthalmic manifestat ions 6 Month Follow-Up OCT Disc with Krzysztof Nickerson MD, FACS 02/23/2014 Subconjunctival hemorrhage in the left eye 6 Month Fol low-Up OCT Disc with Krzysztof Nickerson MD, FACS 02/23/2014 Type 2 diabetes with moderate nonprolife rative diabetic retinopathy with macular edema 6 Month Follow-Up OCT Disc with Krzysztof Nickerson MD , FACS 02/23/2014 Vitreous floaters in both eyes 6 Month Follow-Up OCT D isc with Krzysztof Hancock MD, FACS 02/23/2014 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 3 Month Follow-Up with Krzysztof Nickerson MD, FACS 11/30/2013 Dermatochalasis of both eyes 3 Month Follow-Up with Antonio Nickerson MD, FACS 11/30/2013 Diabetic macular edema of the right eye 3 Month Follow -Up with Krzysztof Hancock MD, FACS 11/30/2013 Dry eye syndrome of both eyes 3 Month Follow-Up with Layne Nickerson MD, FACS 11/30/2013 Hypertensive retinopathy of both eyes 3 Month Follow-U p with Krzysztof Nickerson MD, FACS 11/30/2013 No diabetic macular edema of the left eye 3 Month Foll ow-Up with Krzysztof Hancock MD, FACS 11/30/2013 No rubeosis iridis of both eyes 3 Month Follow-Up with Krzysztof Nickerson MD, FACS 11/30/2013 Posterior capsule opacification in the right eye 3 Mon th Follow-Up with Krzysztof Nickerson MD, FACS 11/30/2013 Posterior capsule opacification not obscuring vision 3 Month Follow-Up with Krzysztof Nickerson MD, FACS 11/30/2013 Type 2 diabetes with moderate nonprolife rative diabetic retinopathy with macular edema 3 Month Follow-Up with Krzysztof Nickerson MD, FACS Vitreous floaters in both eyes 3 Month Follow-Up with Krzysztof Nickerson MD, FACS 11/30/2013 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 6 Month Follow-Up with Krzysztof Nickerson MD, FACS 08/24/2013 Dermatochalasis of both eyes 6 Month Follow-Up with Antonio Nickerson MD, FACS 08/24/2013 Dry eye syndrome of both eyes 6 Month Follow-Up with Layne Nickerson MD, FACS 08/24/2013 No rubeosis iridis of both eyes 6 Month Follow-Up with Krzysztof Nickerson MD, FACS 08/24/2013 Secondary diabetes mellitus with ophthalmic manifestat ions 6 Month Follow-Up with Krzysztof Nickerson MD, FACS 08/24/2013 Type 2 diabetes with moderate nonprolife rative diabetic retinopathy with macular edema of both eyes 6 Month Follow-Up with Krzysztof Nickerson MD, FACS 08/24/2013 Vitreous floaters in both eyes 6 Month Follow-Up with Krzysztof Nickerson MD, FACS 08/24/2013 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 1 Year Follow-Up with Krzysztof Nickerson MD, FACS 11/23/2012 Dermatochalasis of both eyes 1 Year Follow-Up with Krzysztof Nickerson MD, [facility] 11/23/2012 Diabetic macular edema of the left eye 1 Year Follow-U p with Krzysztof Nickerson MD, [facility] 11/23/2012 Diabetic macular edema of the right eye 1 Year Follow- Up with Krzysztof Hancock MD, FACS 11/23/2012 Dry eye syndrome of both eyes 1 Year Follow-Up with Antonio Nickerson MD, [facility] 11/23/2012 Hypertensive retinopathy of both eyes 1 Year Follow-Up with Krzysztof Nickerson MD, FACS 11/23/2012 Mild nonproliferative diabetic retinopathy of both eye s 1 Year Follow-Up with Krzysztof Nickerson MD, FACS 11/23/2012 No rubeosis iridis of both eyes 1 Year Follow-Up with Krzysztof Nickerson MD, [facility] 11/23/2012 Vitreous floaters in both eyes 1 Year Follow-Up with Layne Nickerson MD, [facility] 11/23/2012 Instructions Instructions not supported for this document typeNo Instructions Recorded Medical Equipment - Implanted Devices Includes: Current and historical DevicesNo Medical Equipment Recorded Medications Includes: Current and historical Medications Current Medications (continue as prescribed) Latanoprost 0.005% Ophthalmic Solution 09/21/2020 P rovider: Krzysztof Nickerson MD, [facility] Diagnosis: Ocular hypertension, bilateral One drop in each eye at night time. Brimonidine Tartrate 0.2% Ophthalmic Solution 06/28/2020 Provider: Krzysztof Nickerson MD FACS Diagnosis: Ocular hypertension, bilateral One drop twice a day in both eyes Spironolactone 25 MG Oral Tablet 03/29/2019 Provide r: Diagnosis: Furosemide 20 MG Oral Tablet 03/29/2019 Provider: Diagnosis: Nitrostat 0.4 MG Sublingual Tablet Sublingual 03/29/2019 Provider: Diagnosis: Esomeprazole Magnesium 40 MG Oral Capsule Delayed Release Provider: Diagnosis: NovoLOG FlexPen 100 UNIT/ML Subcutaneous Solution Pen-inject or 03/29/2019 Provider: Diagnosis: sliding scale 3x a day Amitiza 24 MCG Oral Capsule 03/29/2019 Provider: Diagnosis: DULoxetine HCl 60 MG Oral Capsule Delayed Release Particles 03/29/2019 Provider: Diagnosis: Toualireza SoloStar 300 UNIT/ML Subcutaneous Solution Pen-inject or 03/29/2019 Provider: Diagnosis: 50 units at bedtime Memantine HCl 10 MG Oral Tablet 03/29/2019 Provider : Diagnosis: Furosemide 40 MG Oral Tablet 03/29/2019 Provider: Diagnosis: tiZANidine HCl 4 MG Oral Tablet 03/29/2019 Provider : Diagnosis: Super B-Complex/Vit C/FA Oral Tablet 03/29/2019 Pro vider: Diagnosis: Sucralfate 1 GM Oral Tablet 03/29/2019 Provider: Diagnosis: miSOPROStol 200 MCG Oral Tablet 03/29/2019 Provider : Diagnosis: Allopurinol 100 MG Oral Tablet 03/29/2019 Provider: Diagnosis: Gabapentin 400MG Oral Capsule, conventional 08/23/2016 Provider: Diagnosis: Centrum Adults Tablet 05/09/2015 Provider: Diagnosis: Aspirin 81 MG OR TABS 11/23/2012 Provider: Diagnosis: B-12 1000 MCG OR CAPS 11/23/2012 Provider: Diagnosis: Past Medications on file Latanoprost 0.005% Ophthalmic Solution 09/10/2019 - 09/22/19 21 Provider: Krzysztof Nickerson MD FACS Diagnosis: Ocular hypertension, bilateral One drop in each eye at night time. Brimonidine Tartrate 0.2% Ophthalmic Solution 08/09/2019 - 0 06/28/2020 Provider: Krzysztof Nickerson MD FACS Diagnosis: Ocular hypertension, bilateral One drop twice a day in both eyes Brimonidine Tartrate 0.2% Ophthalmic Solution 08/06/2019 - 0 08/09/2019 Provider: Krzysztof Nickerson MD FACS Diagnosis: Ocular hypertension, bilateral One drop twice a day in both eyes Latanoprost 0.005% Ophthalmic Solution 08/06/2019 - 09/10/19 20 Provider: Krzysztof Nickerson MD FACS Diagnosis: Ocular hypertension, bilateral One drop in each eye at night time. Latanoprost 0.005% Ophthalmic Solution 11/09/2018 - 08/06/19 20 Provider: Krzysztof Nickerson MD FACS Diagnosis: Ocular hypertension, bilateral One drop in each eye at night time. Timolol Maleate 0.5% Ophthalmic Gel Forming Solution 019 - 11/09/2018 Provider: Krzysztof Nickerson MD FACS Diagnosis: Ocular hypertension, bilateral One drop in each eye in the morning Timolol Maleate 0.5% Ophthalmic Gel Forming Solution 018 - 08/11/2018 Provider: Krzysztof Nickerson MD, FACS Diagnosis: Ocular hypertension, bilateral One drop in each eye in the morning Losartan Potassium 50MG Oral Tablet 08/23/2016 - 03/29/2019 Provider: Diagnosis: Timolol Maleate 0.5% Ophthalmic Gel Forming Solution 016 - 06/10/2017 Provider: Krzysztof Nickerson MD FACS Diagnosis: Ocular hypertension, bilateral One drop in each eye in the morning Timolol Maleate 0.5 % Gel Forming Solution 04/18/2015 - 04/26 Provider: Krzysztof Nickerson MD FACS Diagnosis: Ocular hypertension, bilateral One drop in each eye in the morning Timolol Maleate 0.5 % Gel Forming Solution 04/18/2015 - 03/27 Provider: Krzysztof Nickerson MD FACS Diagnosis: Ocular hypertension, bilateral One drop in each eye in the morning Timolol Maleate 0.5 % Solution 11/14/2014 - 04/18/2015 Provi riya: Krzysztof Nickerson MD FACS Diagnosis: Ocular Hypertension One drop twice a day in both eyes Gabapentin 100 MG Capsule, conventional 10/25/2014 - 017 Provider: Diagnosis: Centrum Silver Ultra Womens Tablet 10/25/2014 - 05/09/2015 P rovider: Diagnosis: Amitiza 8 MCG OR CAPS 02/23/2014 - 03/29/2019 Provider: Diagnosis: Timoptic-XE 0.5% OP SOLG 11/30/2013 - 11/14/2014 Provider: Krzysztof Nickerson MD FACS Diagnosis: Ocular Hypertension Must be Gel drop Timolol Maleate 0.5% OP SOLG 08/24/2013 - 11/30/2013 Provide r: Krzysztof Nickerson MD FACS Diagnosis: Ocular Hypertension Plavix 75 MG OR TABS 08/24/2013 - 01/13/2018 Provider: Diagnosis: Natural Vegetable Laxative OR TABS 08/24/2013 - 10/25/2014 P rovider: Diagnosis: Lisinopril 10 MG OR TABS 11/23/2012 - 03/29/2019 Provider: Diagnosis: Abimbola-Sequels 50 MG OR TBCR 11/23/2012 - 08/24/2013 Provider : Diagnosis: CVS Vitamin D 2000 UNIT OR CAPS 11/23/2012 - 08/24/2013 Prov ider: Diagnosis: Cymbalta 60 MG OR CPEP 11/23/2012 - 03/29/2019 Provider: Diagnosis: Nitrostat 0.4 MG SL SUBL 11/23/2012 - 03/29/2019 Provider: Diagnosis: HumaLOG Mix 75/25 (75-25) 100 UNIT/ML SC SUSP 11/23/2012 - 0 01/13/2018 Provider: Diagnosis: Timolol Maleate 0.25% OP SOLG 11/23/2012 - 08/24/2013 Provid er: Diagnosis: NexIUM 40 MG OR CPDR 11/23/2012 - 03/29/2019 Provider: Diagnosis: Losartan Potassium 25 MG OR TABS 11/23/2012 - 08/23/2016 Pro vider: Diagnosis: Senokot 8.6 MG OR TABS 11/23/2012 - 08/24/2013 Provider: Diagnosis: Flintstones Complete 60 MG OR CHEW 11/23/2012 - 10/25/2014 P rovider: Diagnosis: CVS Stool Softener 100 MG OR CAPS 11/23/2012 - 08/24/2013 Pr ovider: Diagnosis: Carvedilol 3.125 MG OR TABS 11/23/2012 - 10/25/2014 Provider : Diagnosis: Levemir FlexPen 100 UNIT/ML SC SOLN 11/23/2012 - 01/13/2018 Provider: Diagnosis: Citracal Maximum 315-250 MG-UNIT OR TABS 11/23/2012 - 2018 Provider: Diagnosis: Calcium 600 MG OR TABS 11/23/2012 - 08/24/2013 Provider: Diagnosis: Medications Administered Includes: Administered Medications in patient's chartNo Administered Medications Recorded Vital Signs Includes: Vital Signs from 01/24/2020 through 01/23/2021No Vital Signs Recorded For Specified Dates Results Includes: Results from 01/24/2020 through 01/23/2021No Results Recorded For Specified Dates History of Present Illness History of Present Illness not supported for this document typeNo History of Present Illness Recorded Social History Description Last Updated Tobacco non-user 09/21/2020 No consumption of alcohol 11/08/2019 No tobacco use 11/08/2019 Not using drugs 11/08/2019 Smoking status : Former smoker 11/08/2019 Not using alcohol 07/24/2015 Previous smoking history quit in 199305/09/2015 Procedures and Surgical History Includes: Procedures from 01/24/2020 through 01/23/2021 Procedures Code Diagnosis Performing Provider Service Location Service Date Intermediate Eye Exam Established Patient 66148 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 Wolf 05/09/2015 History of cataract extraction PCIOL with ECP OU 05/2013 Medical History Includes: Medical History in patient's chart Description Last Updated History of diabetes mellitus Type 2, Dx : , A1C: 6.[address] Jessica Goodwin, FBS: 190 09/21/2020 Recent change in medical history 09/21/2020 Reported medical history : Heart Attack, Hiatal Hernia, Stage 3 Kidney Failure, Anxiety, Several small TIA's, History fourth nerve palsy left eye. Angiogram 09/15/2020 09/21/2020 History of the retina was abnormal 08/06/2019 0 History of type 2 diabetes mellitus Dx: , A1C: 7 .2 - with Dr. Sevilla 07/24/2015 History of fundoscopic exam through dilated pupils was performed 10/25/2014 07/24/2015 History of essential hypertension 05/09/2015 Currently wearing eyeglasses 08/24/2013 History of arthritis 11/23/2012 History of hyperlipidemia 11/23/2012 History of hypertension 11/23/2012 Family History Includes: Family History in patient's chart Description Last Updated [place] history of family history of cancer 05/09/2015 Fraternal history of arthritis 10/25/2014 Fraternal history of diabetes mellitus 10/25/2014 Fraternal history of hypertension 10/25/2014 Maternal history of arthritis 10/25/2014 Maternal history of diabetes mellitus 10/25/2014 Maternal history of glaucoma 10/25/2014 Maternal history of hypertension 10/25/2014 Maternal history of stroke/cerebrovascular accident Paternal history of arthritis 10/25/2014 Paternal history of diabetes mellitus 10/25/2014 Paternal history of hypertension 10/25/2014 Sororal history of arthritis 10/25/2014 Sor[place] history of diabetes mellitus 10/25/2014 [place] history of hypertension 10/25/2014 [place] history of stroke/cerebrovascular accident 06/2014 Review of Systems Review of Systems not supported for this document typeNo Review of Systems Recorded Mental Status Mental Status not supported for this document type Description Oriented to time, place, and person Anxiety Functional Status Functional Status not supported for this document typeNo Functional Status Recorded Physical Exam Physical Exam not supported for this document typeNo Physical Exam Recorded Immunizations Includes: Immunizations in patient's chartNo Immunizations Recorded Allergies Includes: Active, inactive, and resolved Allergies Substance Type Reaction Onset Date - Time Resolved Date - Ti me Status Timolol Maleate Allergy Low heart rate 03/29/2019 - 12:00AM Active Capoten Allergy 08/24/2013 - 12:00AM Acti ve Encounters Includes: Encounters from 01/24/2020 through 01/23/2021 Encounter Provider Location Date Check-In Time Check-Out Time D iagnosis 7 Month Follow-Up Krzysztof Nickerson MD, FACS Krzysztof Nickerson MD [facility] 09/21/2020 2:06PM 3:09PM Pseudophakic - Both Eyes, Assessment of Taking Medication For Diabetes Long-term Use of Insulin, Posterior Capsule Opacification Eccentric Capsule Right Eye, Borderline Glaucoma Ocular Hypertension Both Eyes, 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 Rx Refills/Changes Krzysztof Nickerson MD, TREMAYNE 06/28/2020 02/16/2020 3:32PM 02/16/2020 11:59PM DFE and Testing Krzysztof Nickerson MD, FACS Krzysztof Nickerson MD [facility] 02/16/2020 2:19PM 3:11PM 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, Assessment of Taking Medication For Diabetes Long-term Use of Insulin, Borderline Glaucoma Ocular Hypertension Both Eyes, Posterior Capsule Opacification Eccentric Capsule Right Eye, Pseudophakic - Both Eyes Insurance Includes: Active Insurance Policies Plan Name Member ID Group # Subscriber Relationship Effective Da evert 1 - Medicare Part [facility] ([facility]) [id number] Tonja Negrete Self 2 - [facility] [id number] Tonja Varela Self 10/25/19 15 - Unknown Advance Directives Includes: Current Advance DirectivesNo Advance Directives Recorded Health Concerns Includes: Active Health ConcernsNo Active Health Concerns Recorded Goals Includes: Active GoalsNo Active Goals Recorded Interventions Includes: Interventions for active GoalsNo Interventions Recorded Evaluations & Outcomes Includes: Evaluations & Outcomes for active GoalsNo Outcomes Recorded
--- OUTSIDE RECORDS SUMMARY | 2021-03-17 10:46 | CCD | Continuity of Care Document ---
Author Author Tonja TOVAR [place] Organization Unknown Address [address] [place] [address] [place] [address] Phone [phone] Care Team Providers Care Security Advisor Name Role Phone Robinson Goodwin DO AUTM [phone] Problems Description No Information Available Social History [...] Sub Unknown Mvi Unknown Citracal +D3 [id number] Chewtabs Unknown Aspir-[address] villafuerte [...] H/L Range Note Laboratory test finding 12/05/2020 [facility] [address] [place] [address] [phone] Wound Culture FULL REPORT IN L <SEE NOTE> Normal 1 Laboratory test finding 09/29/2020 [facility] [address] [place] [address] [phone] Nasal And Sinus Culture FULL REPORT IN [...] PRESENT Procedures Date Code Description Status 12/20/2020 72393 Office/Outpatient Established Lo w MDM 20-29 Min Completed 12/08/2020 04400 Office/Outpatient Established Lo w MDM 20-29 Min Completed 12/05/2020 55257 Office/Outpatient Established Lo w MDM 20-29 Min Completed 12/05/2020 29708 I & D Abscess Simple Completed 09/29/2020 76935 Office/Outpatient Established Lo w MDM 20-29 Min Completed Medical Devices Description No Information Available Encounters Type Date Location Provider Dx Diagnosis Office Visit 12/08/2020 4:00p Main Office MATHEW [...]
--- OUTSIDE RECORDS SUMMARY | 2021-03-17 10:46 | CCD | Continuity of Care Document ---
Author Author CHATO, Tonja Simms Organization Unknown Address [address] [place] [address] Phone [phone] Care Team Providers Care Ticket Scheduler Name Role Phone Flavio Chinchilla AUTM [phone] Robinson Goodwin D.O. [facility] [phone] Zach Lira M.D. [facility] [phone] Krzysztof Bocanegra M.D. [facility] [phone] [facility] Care Everywhere AUTM [phone] Problems Active Problems Provider Date Carotid artery [...] is a former smoker Smoking Status Reviewed: 01/26/21 Patient is a former smoker Allergies, Adverse Reactions, Alerts Active Allergies Reaction Severity Comments Date Captopril Contact dermatitis 5 Medications Active Medications SIG Qnty Indications Ordering Provide r Date Metoprolol Succinate ER 25mg Tablets ER 24HR 1 by mouth every day 90tabs I10 Krzysztof Bocanegra M.D. 12/06/2020 Plavix 75mg Tablets 1 by mouth every day Unknown 12/05/2020 Isradipine 2.5mg Capsules Take 1 Capsule By Mouth Twice Daily 180caps I10 Krzysztof Bocanegra M.D. 2019 Latanoprost 0.005% Solution 1 drop both eyes [...] angina 25tabs Krzysztof Bocanegra M.D . 02/17/2009 Calcium Carbonate 500mg Chewtabs 1 by mouth every day prn Unknown Ondansetron 4mg Tablets Dispers take 1 tablet (4 mg total) by mouth every 8 (eight) hours as needed for nausea Unknown Zanaflex 2mg Capsules prn Unknown Potassium Chloride Gina ER 10Meq Tablets ER 1 by mouth every day Unknown 000 Lantus 100Unit/ML Solution 6 units bid Unknown Omeprazole 40mg Capsules DR 1 by mouth every day Unknown Ferrous Sulfate 325mg Tablets qd Unknown Xarelto 15mg Tablets qd Unknown Hydralazine HCL 25mg Tablets three times a day Unknown Levothyroxine Sodium 50mcg Capsules qd Unknown Multivitamin Tablets 1 by mouth every day Unknown Amlodipine Besylate 5mg Tablets 2 every day Unknown Docusate Sodium 100mg Capsules take 1 capsule (100 mg total) by mouth 2 (two) times a day Unknown Novolog Flexpen 100U nit/ML Solution Pen-Inject ss Unknown Brimonidine Tartrate 0.2% Solution Administer 1 drop to both eyes daily Unknown Furosemide 20mg Tablets Take 20 mg by [...] as needed for pain iStop Reference #: [id number] Max Daily Amount: 4 tablets 15tabs Unknown 09/16/2020 - 10/17/2020 Mupirocin 2% Ointment Apply topically 2 (two) times a day Apply to each nare twice a day with a cotton swab, starting the five days before surgery. 22units Unknown - 12/26/2020 Immunizations CPT Code Status Date Vaccine Lot # [id number] Given 03/18/2014 Influenza Vaccin e Preservative & Antibiotic Free For Im Use 38139 Given 02/16/2014 Pneumococcal Vaccine 2Yrs Or Older Vital Signs Date Vital Result Comment 01/26/2021 10:03am BP Systolic Right Arm 120 mmHg BP Diastolic Right Arm 80 mmHg Heart Rate 68 /min Body Temperature 94.6 F Height 56 inches 4'8" Weight 122.00 lb Weight 55.339 kg BMI (Body Mass Index) 27.3 kg/m2 12/26/2020 1:10pm BP Systolic Right Arm 180 mmHg BP Diastolic Right Arm 90 mmHg Body Temperature 95.8 F Results Test Acquired Date Facility Test Result [...] Est See Notes 3 1 PERFORMED BY [facility] 2 ALERTED CRITICAL RESULT TO R OSE(205) [place] [address] ON 09/16/20 [place] 0905 [place] [address] 3 NORMAL KIDNEY FUNCTION OR MILD DISEASE - GFR >OR= 60 CHRONIC KIDNEY DISEASE - GFR 15 - 59 RENAL FAILURE - GFR <15 Est. GFR calculation based on the MDRD study equation, which assumes a steady state for creatinine. Est. GFR should not be used for medication dosing. Procedures Date Code Description Status 12/30/2020 86322 Arterial Catheterization Or Jelena ulation Percutaneous Completed 12/30/2020 04220 Ins Non-Tunneled Catheter Comple dori 12/30/2020 92138 Ileo Mesenteric Bypass Completed 12/26/2020 65838 Duplex Scan Arterial Inflow/Venous Outflow LTD Abd/Pelv/Retroper Completed 11/13/2020 04390 Duplex Scan Arterial Inflow/Venous Outflow LTD Abd/Pelv/Retroper Completed 09/15/2020 02168 Moderate Sedation Se rvices; Same Phys Intl 15 Mins; PT >= 5 Years Completed 09/15/2020 27473 Transcatheter Placement Intravas cular Stent Initial Artery Completed 09/15/2020 72943 Catheter Placement A rterial System 1St Order Abdom/Pelv/Low Extr Completed Medical Devices Description No Information Available Encounters Type Date Location Provider Dx Diagnosis Office Visit 01/26/2021 10:15a Main Office Collin [...] for surgical aftcr following surgery on the the medical center sys Office Visit 08/30/2020 8:30a Main Office Collin Nieves M.D. K55.1 Chronic vascular disorders of intestine Assessments Date Code Description Provider 01/26/2021 Z48.812 Encounter for surgic al aftercare following surgery on the circulatory system Clolin Nieves M.D. 12/30/2020 K55.1 Chronic vascular disorders of in testine Akhil Barron M.D. 12/30/2020 K55.069 Acute infarction of intestine, p art and extent unspecified Akhil Barron M.D. 12/30/2020 Z95.828 Presence of other vascular impla nts and grafts Akhil Barron M.D. 12/30/2020 Z98.84 Bariatric surgery status Akhil Barron M.D. 12/29/2020 K55.1 Chronic vascular disorders of in testine Collin Nieves M.D. 12/29/2020 R10.84 Generalized abdominal pain Collin Nieves M.D. 12/29/2020 Z98.84 Bariatric surgery status Collin Nieves M.D. 12/26/2020 K55.1 Chronic vascular disorders of in testine Akhil SuhD. 12/26/2020 K55.1 Chronic vascular disorders of in testine MATHEW Fatiam 12/26/2020 Z48.812 Encounter for surgic al aftercare [...] disorders of in nallely Akhil Barron M.D. 11/13/2020 Z48.812 Encounter for [...] 09/15/2020 K55.1 Chronic vascular disorders of in madhaviestela Barron M.D. 09/15/2020 I70.8 Atherosclerosis of other arterie s Akhil Barron M.D. 08/30/2020 K55.1 Chronic vascular disorders of in nallely Nieves M.D. Plan of Treatment Future Appointment(s):* 02/09/2021 10:15 am - Collin Nieves M.D. at [...]
[2021-03-17] MEDS ORDERED: METO1TAB32 PO (10:48)
[2021-03-17] MEDS ORDERED: LEVO50TA5 PO (10:48)
[2021-03-17] MEDS ORDERED: CLOP75TA2 PO (10:48)
--- OUTSIDE RECORDS SUMMARY | 2021-03-17 10:52 | CCD ---
Author Author [facility] Organization [facility] Address Unknown Phone Unavailable Care Team Providers Care Surveillance Agent Name Role Phone Jennifer Santa MD Unavailable Unavailable Jennifer Santa MD Unavailable Unavailable Jennifer Santa MD Unavailable Unavailable Jennifer Santa MD Unavailable Unavailable Jennifer Santa MD Unavailable Unavailable Jennifer Santa MD Unavailable Unavailable Jennifer Santa MD Unavailable Unavailable Jennifer Santa MD Unavailable Unavailable Jennifer Santa MD Unavailable Unavailable Jennifer Santa MD Unavailable Unavailable Jennifer Santa MD Unavailable Unavailable Jennifer Santa MD Unavailable Unavailable Jennifer Santa MD Unavailable Unavailable Jennifer Santa MD Unavailable Unavailable Jennifer Santa MD Unavailable Unavailable Jennifer Santa MD Unavailable Unavailable Jennifer Santa MD Unavailable Unavailable Dombek-Lang, Jennifer McintyrePetra MD Unavailable Unavailable Dombek-Lang, V Petra MD Unavailable Unavailable Dombek-Lang, V Petra MD Unavailable Unavailable Dombek-Lang, V Petra MD Unavailable Unavailable Dombek-Lang, V Petra MD Unavailable Unavailable Dombek-Lang, V Petra MD Unavailable Unavailable Dombek-Lang, V Petra MD Unavailable Unavailable Dombek-Lang, V Petra MD Unavailable Unavailable Dombek-Lang, V Petra MD Unavailable Unavailable Dombek-Lang, V Petra MD Unavailable Unavailable Dombek-Lang, V Petra MD Unavailable Unavailable Dombek-Lang, V Petra MD Unavailable Unavailable Dombek-Lang, V Petra MD Unavailable Unavailable Dombek-Lang, V Petra MD Unavailable Unavailable Dombek-Lang, V Petra MD Unavailable Unavailable Dombek-Lang, V Petra MD Unavailable Unavailable Dombek-Lang, Jennifer McintyrePetra Unavailable Unavailable Dombek-Lang, Jennifer McintyrePetra MD Unavailable Unavailable Dombek-Lang, V Petra MD Unavailable Unavailable Dombek-Lang, V Petra MD Unavailable Unavailable Dombek-Lang, V Petra MD Unavailable Unavailable Dombek-Lang, V Petra MD Unavailable Unavailable Amor, Naya MD Unavailable Unavailable Amor, Naya MD Unavailable Unavailable Amor, Naya MD Unavailable Unavailable Amor, Naya MD Unavailable Unavailable Amor, Naya MD Unavailable Unavailable Amor, Naya MD Unavailable Unavailable Amor, Naya MD Unavailable Unavailable Amor, Naya MD Unavailable Unavailable Amor, Naya MD Unavailable Unavailable Amor, Naya MD Unavailable Unavailable Amor, Naya MD Unavailable Unavailable Amor, Naya MD Unavailable Unavailable Amor, Naya MD Unavailable Unavailable Amor, Naya MD Unavailable Unavailable Amor, Naya MD Unavailable Unavailable Amor, Naya MD Unavailable Unavailable Amor, Naya MD Unavailable Unavailable Amor, Naya MD Unavailable Unavailable Amor, Naya MD Unavailable Unavailable Amor, Naya MD Unavailable Unavailable Amor, Naya MD Unavailable Unavailable Amor, Naya MD Unavailable Unavailable Amor, Naya MD Unavailable Unavailable Amor, Naya MD Unavailable Unavailable Amor, Naya MD Unavailable Unavailable Amor, Naya MD Unavailable Unavailable Amor, Naya MD Unavailable Unavailable Amor, Naya MD Unavailable Unavailable Amor, Naya MD Unavailable Unavailable Amor, Naya MD Unavailable Unavailable Amor, Naya MD Unavailable Unavailable Amor, Naya MD Unavailable Unavailable Amor, Naya MD Unavailable Unavailable Amor, Naya MD Unavailable Unavailable Amor, Naya MD Unavailable Unavailable Amor, Naya MD Unavailable Unavailable Amor, Naya MD Unavailable Unavailable Amor, Naya MD Unavailable Unavailable Amor, Naya MD Unavailable Unavailable Amor, Naya MD Unavailable Unavailable Amor, Naya MD Unavailable Unavailable Amor, Naya MD Unavailable Unavailable Amor, Naya MD Unavailable Unavailable Amor, Naya MD Unavailable Unavailable Amor, Naya MD Unavailable Unavailable Amor, Naya MD Unavailable Unavailable Amor, Naya MD Unavailable Unavailable Amor, Naya MD Unavailable Unavailable Amor, Naya MD Unavailable Unavailable Amor, Naya MD Unavailable Unavailable Amor, Naya MD Unavailable Unavailable Amor, Naya MD Unavailable Unavailable Amor, Naya MD Unavailable Unavailable Amor, Naya MD Unavailable Unavailable Amor, Naya MD Unavailable Unavailable Amor, Naya MD Unavailable Unavailable Amor, Naya MD Unavailable Unavailable Amor, Naya MD Unavailable Unavailable Amor, Naya MD Unavailable Unavailable Amor, Naya MD Unavailable Unavailable Amor, Naya MD Unavailable Unavailable Amor, Naya MD Unavailable Unavailable Rissa Nieves MD Unavailable Unavailable EzequielRissa joned MD Unavailable Unavailable EzequielRissa joned MD Unavailable Unavailable Rissa Nieves MD Unavailable Unavailable EzequielRissa joned MD Unavailable Unavailable Rissa Nievesed MD Unavailable Unavailable Rissa Nievesed MD Unavailable Unavailable Rissa Nievesed MD Unavailable Unavailable EzequielRissa joned MD Unavailable Unavailable Ezequiel N Collin MD Unavailable Unavailable EzequielRissa jon Collin MD Unavailable Unavailable Ezequiel, N Collin MD Unavailable Unavailable Ezequiel, N Collin MD Unavailable Unavailable Rissa Nieves Collin MD Unavailable Unavailable EzequielRissa jon Collin MD Unavailable Unavailable EzequielRissa jon Collin MD Unavailable Unavailable EzequielRissa jon Collin MD Unavailable Unavailable EzequielRissa jon Collin MD Unavailable Unavailable EzequielRissa jon Collin MD Unavailable Unavailable EzequielRissa jon Collin MD Unavailable Unavailable EzequielRissa jon Collin MD Unavailable Unavailable Rissa Nieves Collin MD Unavailable Unavailable EzequielRissa jon Collin MD Unavailable Unavailable Ezequiel, N Collin MD Unavailable Unavailable Ezequiel, N Collin MD Unavailable Unavailable Ezequiel, N Collin MD Unavailable Unavailable Ezequiel, N Collin MD Unavailable Unavailable Ezequiel, N Collin MD Unavailable Unavailable Ezequiel, N Collin MD Unavailable Unavailable Ezequiel, N Collin MD Unavailable Unavailable Ezequiel, N Collin MD Unavailable Unavailable Ezequiel, N Collin MD Unavailable Unavailable Ezequiel, N Collin MD Unavailable Unavailable Ezequiel, N Collin MD Unavailable Unavailable Ezequiel, N Collin MD Unavailable Unavailable Ezequiel, N Collin MD Unavailable Unavailable Ezequiel, N Collin MD Unavailable Unavailable Ezequiel, N Collin MD Unavailable Unavailable Ezequiel, N Collin MD Unavailable Unavailable Ezequiel, N Collin MD Unavailable Unavailable Ezequiel, N Collin MD Unavailable Unavailable Ezequiel, N Collin MD Unavailable Unavailable Ezequiel, N Collin MD Unavailable Unavailable Ezequiel, N Collin MD Unavailable Unavailable Ezequiel, N Collin MD Unavailable Unavailable Ezequiel, N Collin MD Unavailable Unavailable Ezequiel, N Collin MD Unavailable Unavailable Ezequiel, N Collin MD Unavailable Unavailable Ezequiel, N Collin MD Unavailable Unavailable Ezequiel, N Collin MD Unavailable Unavailable Ezequiel, N Collin MD Unavailable Unavailable Ezequiel, N Collin MD Unavailable Unavailable Ezequiel, N Collin MD Unavailable Unavailable Ezequiel, N Ocllin MD Unavailable Unavailable Ezequiel, N Collin MD Unavailable Unavailable Ezequiel, N Collin MD Unavailable Unavailable Ezequiel, N Collin MD Unavailable Unavailable Ezequiel, N Collin MD Unavailable Unavailable Ezequiel, N Collin MD Unavailable Unavailable Ezequiel, N Collin MD Unavailable Unavailable Ezequiel, N Collin MD Unavailable Unavailable Ezequiel, N Collin MD Unavailable Unavailable Ezequiel, N Collin MD Unavailable Unavailable Ezequiel, N Collin MD Unavailable Unavailable Ezequiel, N Collin MD Unavailable Unavailable Ezequiel, N Collin MD Unavailable Unavailable Ezequiel, N Collin MD Unavailable Unavailable Ezequiel, N Collin MD Unavailable Unavailable Ezequiel, N Collin MD Unavailable Unavailable Ezequiel, N Collin MD Unavailable Unavailable Ezequiel, N Collin MD Unavailable Unavailable Ezequiel, N Collin MD Unavailable Unavailable Ezequiel, N Collin MD Unavailable Unavailable Ezequiel, N Collin MD Unavailable Unavailable Ezequiel, N Collin MD Unavailable Unavailable Ezequiel, N Collin MD Unavailable Unavailable Ezequiel, N Collin MD Unavailable Unavailable Ezequiel, N Collin MD Unavailable Unavailable Ezequiel, N Collin MD Unavailable Unavailable Ezequiel, N Collin MD Unavailable Unavailable Rissa Nieves MD Unavailable Unavailable Ezequiel, Rissa Polanco MD Unavailable Unavailable Rissa Nieves MD Unavailable Unavailable Rissa Nieves MD Unavailable [facility]available [facility] Unavailable Unavailable [facility], A Letty RPA C Unavailable Unavailable [facility], A Letty RPA C Unavailable Unavailable [place], A Letty RPA C Unavailable Unavailable [place], A Letty RPA C Unavailable Unavailable [place], A Letty RPA C Unavailable Unavailable [place], A Letty RPA C Unavailable Unavailable [place], A Letty RPA C Unavailable Unavailable [place], A Letty RPA C Unavailable Unavailable [place], A Letty RPA C Unavailable Unavailable [place], A Letty RPA C Unavailable Unavailable [place], A Letty RPA C Unavailable Unavailable [place], A Letty RPA C Unavailable Unavailable [place], A Letty RPA C Unavailable Unavailable [place], A Letty RPA C Unavailable Unavailable [place], A Letty RPA C Unavailable Unavailable [place], A Letty RPA C Unavailable Unavailable [place], A Letty RPA C Unavailable Unavailable [place], A Letty RPA C Unavailable Unavailable [place], A Letty RPA C Unavailable Unavailable [place], A Letty RPA C Unavailable Unavailable [place], A Letty RPA C Unavailable Unavailable [place], A Letty RPA C Unavailable Unavailable [place], A Letty RPA C Unavailable Unavailable [place], A Letty RPA C Unavailable Unavailable [place], A Letty RPA C Unavailable Unavailable [place], A Letty RPA C Unavailable Unavailable [place], A Letty RPA C Unavailable Unavailable [place], A Letty RPA C Unavailable Unavailable [place], A Letty RPA C Unavailable Unavailable [place], A Letty RPA C Unavailable Unavailable [place], A Letty RPA C Unavailable Unavailable [place], A Letty RPA C Unavailable Unavailable [place], A Letty RPA C Unavailable Unavailable Lauren Lira MD Unavailable Unavailable Lauren Lira MD Unavailable Unavailable Lauren Lira MD Unavailable Unavailable Lauren Lira MD Unavailable Unavailable Soraya, P Khalid MD Unavailable Unavailable Soraya, P Khalid MD Unavailable Unavailable Soraya, P Khalid MD Unavailable Unavailable Soraya, P Khalid MD Unavailable Unavailable Soraya, P Khalid MD Unavailable Unavailable Soraya, P Khalid MD Unavailable Unavailable Soarya, P Khalid MD Unavailable Unavailable Soraya, P Khalid MD Unavailable Unavailable Soraya, P Khalid MD Unavailable Unavailable Soraya, P Khalid MD Unavailable Unavailable Soraya, P Khalid MD Unavailable Unavailable Soraya, P Khalid MD Unavailable Unavailable Soraya, P Khalid MD Unavailable Unavailable Soraya, P Khalid MD Unavailable Unavailable Soraya, P Khalid MD Unavailable Unavailable Soraya, P Khalid MD Unavailable Unavailable Soraya, P Khalid MD Unavailable Unavailable Soraya, P Khalid MD Unavailable Unavailable Soraya, P Khalid MD Unavailable Unavailable Soraya, P Khalid MD Unavailable Unavailable Soraya, P Khalid MD Unavailable Unavailable Soraya, P Khalid MD Unavailable Unavailable Soraya, P Khalid MD Unavailable Unavailable Soraya, P Khalid MD Unavailable Unavailable Soraya, P Khalid MD Unavailable Unavailable Soraya, P Khalid MD Unavailable Unavailable Soraya, P Khalid MD Unavailable Unavailable Soraya, P Khalid MD Unavailable Unavailable Soraya, P Khalid MD Unavailable Unavailable Soraya, P Khalid MD Unavailable Unavailable Soraya, P Khalid MD Unavailable Unavailable Soraya, P Khalid MD Unavailable Unavailable Soraya, P Khalid MD Unavailable Unavailable Soraya, P Khalid MD Unavailable Unavailable Soraya, P Khalid MD Unavailable Unavailable Soraya, P Khalid MD Unavailable Unavailable Soraya, P Khalid MD Unavailable Unavailable Soraya, P Khalid MD Unavailable Unavailable Soraya, P Khalid MD Unavailable Unavailable Soraya, P Khalid MD Unavailable Unavailable Soraya, P Khalid MD Unavailable Unavailable Soraya, P Khalid MD Unavailable Unavailable Soraya, P Khalid MD Unavailable Unavailable Soraya, P Khalid MD Unavailable Unavailable Soraya, P Khalid MD Unavailable Unavailable Soraya, P Khalid MD Unavailable Unavailable Soraya, P Khalid MD Unavailable Unavailable Soraya, Lauren Serrano MD Unavailable Unavailable Soraya, Lauren Serrano MD Unavailable Unavailable Soraya, Laurne Serrano MD Unavailable Unavailable Soraya, Lauren Serrano MD Unavailable Unavailable Soraya, Lauren Serrano MD Unavailable Unavailable Soraya, Lauren Serrano MD Unavailable Unavailable ROSAS, L ODESSA OWENS Unavailable Unavailable ROSAS, L ODESSA OWENS Unavailable Unavailable ROSAS, L ODESSA OWENS Unavailable Unavailable ROSAS, L ODESSA OWENS Unavailable Unavailable ROSAS, L ODESSA OWENS Unavailable Unavailable ROSAS, L ODESSA OWENS Unavailable Unavailable ROSAS, L ODESSA OWENS Unavailable Unavailable ROSAS, L ODESSA OWENS Unavailable Unavailable ROSAS, L ODESSA OWENS Unavailable Unavailable ROSAS, L ODESSA OWENS Unavailable Unavailable ROSAS, L ODESSA OWENS Unavailable Unavailable ROSAS, L ODESSA OWENS Unavailable Unavailable ROSAS, L ODESSA OWENS Unavailable Unavailable ROSAS, L ODESSA OWENS Unavailable Unavailable ROSAS, L ODESSA OWENS Unavailable Unavailable ROSAS, L ODESSA OWENS Unavailable Unavailable ROSAS, L ODESSA OWENS Unavailable Unavailable ROSAS, L ODESSA OWENS Unavailable Unavailable ROSAS, L ODESSA OWENS Unavailable Unavailable ROSAS, L ODESSA OWENS Unavailable Unavailable ROSAS, L ODESSA OWENS Unavailable Unavailable ROSAS, L ODESSA OWENS Unavailable Unavailable ROSAS, L ODESSA OWENS Unavailable Unavailable ROASS, L ODESSA OWENS Unavailable Unavailable ROSAS, L ODESSA OWENS Unavailable Unavailable ROSAS, L ODESSA OWENS Unavailable Unavailable ROSAS, L ODESSA OWENS Unavailable Unavailable ROSAS, L ODESSA OWENS Unavailable Unavailable ROSAS, L ODESSA OWENS Unavailable Unavailable ROSAS, L ODESSA OWENS Unavailable Unavailable ROSAS, L ODESSA OWENS Unavailable Unavailable ROSAS, L ODESSA OWENS Unavailable Unavailable ROSAS, L ODESSA OWENS Unavailable Unavailable ROSAS, L ODESSA OWENS Unavailable Unavailable ROSAS, L ODESSA OWENS Unavailable Unavailable ROSAS, L ODESSA OWENS Unavailable Unavailable ROSAS, L ODESSA OWENS Unavailable Unavailable ROSAS, L ODESSA OWENS Unavailable Unavailable ROSAS, L ODESSA OWENS Unavailable Unavailable ROSAS, L ODESSA OWENS Unavailable Unavailable ROSAS, L ODESSA OWENS Unavailable Unavailable ROSAS, L ODESSA OWENS Unavailable Unavailable ROSAS, L ODESSA OWENS Unavailable Unavailable ROSAS, L ODESSA OWENS Unavailable Unavailable ROSAS, L ODESSA OWENS Unavailable Unavailable Sangita, Nataly Silva PA Unavailable Unavailable Sangita, Nataly Silva PA Unavailable Unavailable Sangita, M Shira PA Unavailable Unavailable Sangita, M Shira PA Unavailable Unavailable Sangita, M Shira PA Unavailable Unavailable Sangita, M Shira PA Unavailable Unavailable Sangita, M Shira PA Unavailable Unavailable Sangita, M Shira PA Unavailable Unavailable Sangita, M Shira PA Unavailable Unavailable Sangita, M Shira PA Unavailable Unavailable Sangita, M Shira PA Unavailable Unavailable Sangita, M Shira PA Unavailable Unavailable Sangita, M Shira PA Unavailable Unavailable Sangita, M Shira PA Unavailable Unavailable Sangita, M Shira PA Unavailable Unavailable Sangita, M Shira PA Unavailable Unavailable Sangita, M Shira PA Unavailable Unavailable Sangita, M Shira PA Unavailable Unavailable Sangita, M Shira PA Unavailable Unavailable Sangita, M Shira PA Unavailable Unavailable Sangita, M Shira PA Unavailable Unavailable Sangita, M Shira PA Unavailable Unavailable Sangita, M Shira PA Unavailable Unavailable Sangita, M Shira PA Unavailable Unavailable Sangita, M Shira PA Unavailable Unavailable Sangita, M Shira PA Unavailable Unavailable Sangita, M Shira PA Unavailable Unavailable Sangita, M Shira PA Unavailable Unavailable Sangita, M Shira PA Unavailable Unavailable Sangita, M Shira PA Unavailable Unavailable Sangita, M Shira PA Unavailable Unavailable Sangita, M Shira PA Unavailable Unavailable Sangita, M Shira PA Unavailable Unavailable Sangita, M Shira PA Unavailable Unavailable Sangita, M Shira PA Unavailable Unavailable Sangita, M Shira PA Unavailable Unavailable Sangita, M Shira PA Unavailable Unavailable Sangita, M Shira PA Unavailable Unavailable Sangita, M Shira PA Unavailable Unavailable Sangita, M Shira PA Unavailable Unavailable Sangita, M Shira PA Unavailable Unavailable Sangita, M Shira PA Unavailable Unavailable Sangita, M Shira PA Unavailable Unavailable Sangita, M Shira PA Unavailable Unavailable Sangita, M Shira PA Unavailable Unavailable Sangita, M Shira PA Unavailable Unavailable MAJAK, R NANCY DPM Unavailable Unavailable MAJAK, R NANCY DPM Unavailable Unavailable MAJAK, R NANCY DPM Unavailable Unavailable MAJAK, R NANCY DPM Unavailable Unavailable MAJAK, R NANCY DPM Unavailable Unavailable MAJAK, R NANCY DPM Unavailable Unavailable MAJAK, R NANCY DPM Unavailable Unavailable MAJAK, R NANCY DPM Unavailable Unavailable MAJAK, R NANCY DPM Unavailable Unavailable MAJAK, R NANCY DPM Unavailable Unavailable MAJAK, R NANCY DPM Unavailable Unavailable MAJAK, R NANCY DPM Unavailable Unavailable MAJAK, R NANCY DPM Unavailable Unavailable MAJAK, R NANCY DPM Unavailable Unavailable MAJAK, R NANCY DPM Unavailable Unavailable MAJAK, R NANCY DPM Unavailable Unavailable MAJAK, R NANCY DPM Unavailable Unavailable MAJAK, R NANCY DPM Unavailable Unavailable MAJAK, R NANCY DPM Unavailable Unavailable MAJAK, R NANCY DPM Unavailable Unavailable MAJAK, R NANCY DPM Unavailable Unavailable MAJAK, R NANCY DPM Unavailable Unavailable MAJAK, R NANCY DPM Unavailable Unavailable MAJAK, R NANCY DPM Unavailable Unavailable MAJAK, R NANCY DPM Unavailable Unavailable MAJAK, R NANCY DPM Unavailable Unavailable MAJAK, R NANCY DPM Unavailable Unavailable MAJAK, R NANCY DPM Unavailable Unavailable MAJAK, R NANCY DPM Unavailable Unavailable MAJAK, R NANCY DPM Unavailable Unavailable MAJAK, R NANCY DPM Unavailable Unavailable Evens, Chris Barfield MD Unavailable Unavailable Horner, Chris Barfield MD Unavailable Unavailable Horner, Chris Barfield MD Unavailable Unavailable Horner, Chris Barfield MD Unavailable Unavailable Horner, Chris Barfield MD Unavailable Unavailable Horner, Chris Barfield MD Unavailable Unavailable HornerChris MD Unavailable Unavailable Horner, Chris Barfield MD Unavailable Unavailable HornerChris MD Unavailable Unavailable HornerChris MD Unavailable Unavailable HornerChris MD Unavailable Unavailable HornerChris MD Unavailable Unavailable Horner, Chris Barfield MD Unavailable Unavailable HornerChris MD Unavailable Unavailable HornerChris quintero MD Unavailable Unavailable HornerChris quintero MD Unavailable Unavailable HornerChris MD Unavailable Unavailable HornerChris MD Unavailable Unavailable HornerChris MD Unavailable Unavailable HornerChris MD Unavailable Unavailable HornerChris MD Unavailable Unavailable HornerChris MD Unavailable Unavailable HornerChris MD Unavailable Unavailable HornerChris MD Unavailable Unavailable Chris Horner MD Unavailable Unavailable Chris Horner MD Unavailable Unavailable HornerChris MD Unavailable Unavailable HornerChris MD Unavailable Unavailable HornerChris MD Unavailable Unavailable Horner, Chris Barfield MD Unavailable Unavailable HornerChris MD Unavailable Unavailable Chris Horner MD Unavailable Unavailable HornerChris quintero MD Unavailable Unavailable HornerChris MD Unavailable Unavailable HornerChris MD Unavailable Unavailable HornerChris MD Unavailable Unavailable HornerChris MD Unavailable Unavailable Horner, Chris Barfield MD Unavailable Unavailable Chris Horner MD Unavailable Unavailable Chris Horner MD Unavailable Unavailable Chris Horner MD Unavailable Unavailable Chris Horner MD Unavailable Unavailable Chris Horner MD Unavailable Unavailable Chris Horner MD Unavailable Unavailable Chris Horner MD Unavailable Unavailable Chris Horner MD Unavailable Unavailable Chris Horner MD Unavailable Unavailable Chris Horner MD Unavailable Unavailable Chris Horner MD Unavailable Unavailable Chris Horner MD Unavailable Unavailable Cederstrand, Latesha Dumont MD Unavailable Unavailable [place]eder[place], Latesha Dumont MD Unavailable Unavailable [place]eder[place], Latesha Dumont MD Unavailable Unavailable [place]eder[place], Latesha Dumont MD Unavailable Unavailable [place]eder[place], Latesha Dumont MD Unavailable Unavailable [place]eder[place], Latesha Dumont MD Unavailable Unavailable Cederstrand, Latesha Dumont MD Unavailable Unavailable Cederstrand, Latesha Dumont MD Unavailable Unavailable Cederstrand, Latesha Dumont MD Unavailable Unavailable Cederstrand, Latesha Dumont MD Unavailable Unavailable Cederstrand, Latesha Dumont MD Unavailable Unavailable Cederstrand, Latesha Dumont MD Unavailable Unavailable Cederstrand, Latesha Dumont MD Unavailable Unavailable Ceder[place], Latesha Dumont MD Unavailable Unavailable [place]eder[place], Latesha Dumont MD Unavailable Unavailable Cederstrand, Latesha Dumont MD Unavailable Unavailable Gerard MCDANIELS MD Unavailable Unavailable Gerard MCDANIELS MD Unavailable Unavailable Gerard MCDANIELS MD Unavailable Unavailable Gerard MCDANIELS MD Unavailable Unavailable Gerard MCDANIELS MD Unavailable Unavailable Gerard MCDANIELS MD Unavailable Unavailable Gerard MCDANIELS MD Unavailable Unavailable Gerard MCDNAIELS MD Unavailable Unavailable Gerard MCDANIELS MD Unavailable Unavailable Gerard MCDANIELS MD Unavailable Unavailable Gerard MCDANIELS MD Unavailable Unavailable Gerard MCDANIELS MD Unavailable Unavailable Gerard MCDANIELS MD Unavailable Unavailable Gerard MCDANIELS MD Unavailable Unavailable Gerard MCDANIELS MD Unavailable Unavailable Gerard MCDANIELS MD Unavailable Unavailable Gerard MCDANIELS MD Unavailable Unavailable Gerard MCDANIELS MD Unavailable Unavailable Gerard MCDANIELS MD Unavailable Unavailable Gerard MCDANIELS MD Unavailable Unavailable Gerard MCDANIELS MD Unavailable Unavailable Gerard MCDANIELS MD Unavailable Unavailable Gerard MCDANIELS MD Unavailable Unavailable Gerard MCDANIELS MD Unavailable Unavailable Gerard MCDANIELS MD Unavailable Unavailable Gerard MCDANIELS MD Unavailable Unavailable ENEDELIA, Gerard HECK MD Unavailable Unavailable ENEDELIA, Gerard HECK MD Unavailable Unavailable ENEDELIA, Gerard HECK MD Unavailable Unavailable ENEDELIA, Gerard HECK MD Unavailable Unavailable ENEDELIA, Gerard HECK MD Unavailable Unavailable ENEDELIA, Gerard HECK MD Unavailable Unavailable ENEDELIA, Gerard HECK MD Unavailable Unavailable ENEDELIA, Gerard HECK MD Unavailable Unavailable ENEDELIA, Gerard HECK MD Unavailable Unavailable ENEDELIA, Gerard HECK MD Unavailable Unavailable ENEDELIA, Gerard HECK MD Unavailable Unavailable ENEDELIA, Gerard HECK MD Unavailable Unavailable ENEDELIA, Gerard HECK MD Unavailable Unavailable ENEDELIA, Gerard HECK MD Unavailable Unavailable ENEDELIA, Gerard HECK MD Unavailable Unavailable ENEDELIA, Gerard HECK MD Unavailable Unavailable ENEDELIA, Gerard HECK MD Unavailable Unavailable ENEDELIA, Gerard HECK MD Unavailable Unavailable ENEDELIA, Gerard HECK MD Unavailable Unavailable ENEDELIA, Gerard HECK MD Unavailable Unavailable ENEDELIA, Gerard HECK MD Unavailable Unavailable ENEDELIA, Gerard HECK MD Unavailable Unavailable ENEDELIA, Gerard HECK MD Unavailable Unavailable ENEDELIA, Gerard HECK MD Unavailable Unavailable ENEDELIA, Gerard HECK MD Unavailable Unavailable ENEDELIA, Gerard HECK MD Unavailable Unavailable ENEDELIA, Gerard HECK MD Unavailable Unavailable ENEDELIA, Gerard HECK MD Unavailable Unavailable ENEDELIA, Gerard HECK MD Unavailable Unavailable ENEDELIA, Gerard HECK MD Unavailable Unavailable ENEDELIA, Gerard HECK MD Unavailable Unavailable ENEDELIA, Gerard HECK MD Unavailable Unavailable ENEDELIA, Gerard HECK MD Unavailable Unavailable ENEDELIA, Gerard HECK MD Unavailable Unavailable ENEDELIA, Gerard HECK MD Unavailable Unavailable ENEDELIA, Gerard HECK MD Unavailable Unavailable ENEDELIA, Gerard HECK MD Unavailable Unavailable ENEDELIA, Gerard HECK MD Unavailable Unavailable ENEDELIA, Gerard HECK MD Unavailable Unavailable ENEDELIA, Gerard HECK MD Unavailable Unavailable ENEDELIA, Gerard HECK MD Unavailable Unavailable ENEDELIA, Gerard HECK MD Unavailable Unavailable ENEDELIA, Gerard HECK MD Unavailable Unavailable ENEDELIA, Gerard HECK MD Unavailable Unavailable ENEDELIA, Gerard HECK MD Unavailable Unavailable ENEDELIA, Gerard HECK MD Unavailable Unavailable ENEDELIA, Gerard HECK MD Unavailable Unavailable ENEDELIA, Gerard HECK MD Unavailable Unavailable ENEDELIA, Gerard HECK MD Unavailable Unavailable ENEDELIA, Gerard HECK MD Unavailable Unavailable ENEDELIA, Gerard HECK MD Unavailable Unavailable ENEDELIA, Gerard HECK MD Unavailable Unavailable ENEDELIA, Gerard HECK MD Unavailable Unavailable ENEDELIA, Gerard HECK MD Unavailable Unavailable ENEDELIA, Gerard HECK MD Unavailable Unavailable ENEDELIA, Gerard HECK MD Unavailable Unavailable ENEDELIA, Gerard HECK MD Unavailable Unavailable ENEDELIA, Gerard HECK MD Unavailable Unavailable ENEDELIA, Gerard HECK MD Unavailable Unavailable ENEDELIA, Gerard HECK MD Unavailable Unavailable ENEDELIA, Gerard HECK MD Unavailable Unavailable ENEDELIA, Gerard HECK MD Unavailable Unavailable ENEDELIA, Gerard HECK MD Unavailable Unavailable ENEDELIA, Gerard HECK MD Unavailable Unavailable ENEDELIA, Gerard HECK MD Unavailable Unavailable ENEDELIA, Gerard HECK MD Unavailable Unavailable ENEDELIA, Gerard HECK MD Unavailable Unavailable ENEDELIA, Gerard HECK MD Unavailable Unavailable ENEDELIA, Gerard HECK MD Unavailable Unavailable ENEDELIA, Gerard HECK MD Unavailable Unavailable ENEDELIA, Gerard HECK MD Unavailable Unavailable ENEDELIA, Gerard HECK MD Unavailable Unavailable ENEDELIA, Gerard HECK MD Unavailable Unavailable ENEDELIA, Gerard HECK MD Unavailable Unavailable Petersen Hancock, Mendez Glez MD, FACS Unavailable Unavailable Petersen Hancock, Mendez Glez MD, FACS Unavailable Unavailable Petersen Hancock, Mendez Glez MD, FACS Unavailable Unavailable Petersen Hancock, Mendez Glez MD, FACS Unavailable Unavailable Petersen Hancock, Mendez Glez MD, FACS Unavailable Unavailable Petersen Hancock, Mendez Glez MD, FACS Unavailable Unavailable Petersen Hancock, Mendez Glez MD, FACS Unavailable Unavailable Petersen Hancock, Mendez Glez MD, FACS Unavailable Unavailable Petersen Hancock, Mendez Glez MD, FACS Unavailable Unavailable Petersen Hancock, Mendez Glez MD, FACS Unavailable Unavailable Petersen Hancock, Mendez Glez MD, FACS Unavailable Unavailable Petersen Hancock, Mendez Glez MD, FACS Unavailable Unavailable Petersen Hancock, Mendez Glez MD, FACS Unavailable Unavailable Petersen Hancock, Mendez Glez MD, FACS Unavailable Unavailable Petersen Hancock, Mendez Glez MD, FACS Unavailable Unavailable Petersen Hancock, Mendez Glez MD, FACS Unavailable Unavailable Petersen Hancock, Mendez Glez MD, FACS Unavailable Unavailable Petersen Hancock, Mendez Glez MD, FACS Unavailable Unavailable Petersen Hancock, Mendez Glez MD, FACS Unavailable Unavailable Petersen Hancock, Mendez Glez MD, FACS Unavailable Unavailable Petersen Hancock, Mendez Glez MD, FACS Unavailable Unavailable Petersen Hancock, Mendez Glez MD, FACS Unavailable Unavailable Petersen Hancock, Mendez Glez MD, FACS Unavailable Unavailable Petersen Hancock, Mendez Glez MD, FACS Unavailable Unavailable Petersen Hancock, Mendez Glez MD, FACS Unavailable Unavailable Petersen Hancock, Mendez Glez MD, FACS Unavailable Unavailable Petersen Hancock, Mendez Glez MD, FACS Unavailable Unavailable Petersen Hancock, Mendez Glez MD, FACS Unavailable Unavailable Petersen Hancock, Mendez Glez MD, FACS Unavailable Unavailable Petersen Hancock, Mendez Glez MD, FACS Unavailable Unavailable Petersen Hancock, Mendez Glez MD, FACS Unavailable Unavailable Petersen Hancock, Mendez Glez MD, FACS Unavailable Unavailable Petersen Hancock, Mendez Glez MD, FACS Unavailable Unavailable Petersen Hancock, Mendez Glez MD, FACS Unavailable Unavailable Petersen Hancock, Mendez Glez MD, FACS Unavailable Unavailable Petersen Hancock, Mendez Glez MD, FACS Unavailable Unavailable Petersen Hancock, Mendez Glez MD, FACS Unavailable Unavailable Petersen Hancock, Mendez Glez MD, FACS Unavailable Unavailable Petersen Hancock, Mendez Glez MD, FACS Unavailable Unavailable Commkelly, Zia Unavailable Unavailable Commkelly, Zia Unavailable Unavailable Commey, Zia Unavailable Unavailable Commey, Zia Unavailable Unavailable Commey, Zia Unavailable Unavailable Commey, Zia Unavailable Unavailable Commey, Zia Unavailable Unavailable Commey, Zia Unavailable Unavailable Commey, Zia Unavailable Unavailable Commey, Zia Unavailable Unavailable Commey, Zia Unavailable Unavailable Commey, Zia Unavailable Unavailable Commey, Zia Unavailable Unavailable Commey, Zia Unavailable Unavailable Commey, Zia Unavailable Unavailable Commey, Zia Unavailable Unavailable Commey, Zia Unavailable Unavailable Commey, Zia Unavailable Unavailable Commey, Zia Unavailable Unavailable Commey, Zia Unavailable Unavailable Commey, Zia Unavailable Unavailable Commey, Zia Unavailable Unavailable Commey, Zia Unavailable Unavailable Commey, Zia Unavailable Unavailable Commey, Zia Unavailable Unavailable Commey, Zia Unavailable Unavailable Commey, Zia Unavailable Unavailable Commey, Zia Unavailable Unavailable Commey, Zia Unavailable Unavailable Commey, Zia Unavailable Unavailable Commey, Zia Unavailable Unavailable Jennifer Santa MD Unavailable Unavailable Jennifer Santa MD Unavailable Unavailable Jennifer Santa MD Unavailable Unavailable Jennifer Santa MD Unavailable Unavailable Jennifer Santa MD Unavailable Unavailable Jennifer Santa MD Unavailable Unavailable Jennifer Santa MD Unavailable Unavailable Jennifer Santa MD Unavailable Unavailable Jennifer Santa MD Unavailable Unavailable Jennifer Santa MD Unavailable Unavailable Jennifer Santa MD Unavailable Unavailable Jennifer Santa MD Unavailable Unavailable Jennifer Santa MD Unavailable Unavailable Jennifer Santa MD Unavailable Unavailable Jennifer Santa MD Unavailable Unavailable Jennifer Santa MD Unavailable Unavailable Jennifer Santa MD Unavailable Unavailable Jennifer Santa MD Unavailable Unavailable Jennifer Santa MD Unavailable Unavailable Jennifer Santa MD Unavailable Unavailable Jennifer Santa MD Unavailable Unavailable Dombek-Lang, Jennifer Lambert MD Unavailable Unavailable Dombek-Lang, Jennifer Lambert MD Unavailable Unavailable Dombek-Lang, Jennifer Lambert MD Unavailable Unavailable Dombek-Lang, Jennifer Lambert MD Unavailable Unavailable Dombek-Lang, Jennifer Lambert MD Unavailable Unavailable Dombek-Lang, Jennifer Lambert MD Unavailable Unavailable Dombek-Lang, Jennifer Lambert MD Unavailable Unavailable Dombek-Lang, Jennifer Lambert MD Unavailable Unavailable Dombek-Lang, Jennifer Lambert MD Unavailable Unavailable Dombek-Lang, Jennifer Lambert MD Unavailable Unavailable Dombek-Lang, Jennifer Lambert MD Unavailable Unavailable Dombek-Lang, Jennifer Lambert MD Unavailable Unavailable Dombek-Lang, Jennifer Lambert MD Unavailable Unavailable Dombek-Lang, Jennifer Lambert MD Unavailable Unavailable Dombek-Lang, Jennifer Lambert MD Unavailable Unavailable Dombek-Lang, Jennifer Lambert MD Unavailable Unavailable Dombek-Lang, Jennifer Lambert MD Unavailable Unavailable Dombek-Lang, Jennifer Lambert MD Unavailable Unavailable LETTIERE, A MARISOL PA Unavailable Unavailable LETTIERE, A MARISOL PA Unavailable Unavailable LETTIERE, A MARISOL PA Unavailable Unavailable LETTIERE, A MARISOL PA Unavailable Unavailable LETTIERE, A MARISOL PA Unavailable Unavailable LETTIERE, A MARISOL PA Unavailable Unavailable LETTIERE, A MARISOL PA Unavailable Unavailable LETTIERE, A MARISOL PA Unavailable Unavailable LETTIERE, A MARISOL PA Unavailable Unavailable LETTIERE, A MARISOL PA Unavailable Unavailable LETTIERE, A MARISOL PA Unavailable Unavailable LETTIERE, A MARISOL PA Unavailable Unavailable LETTIERE, A MARISOL PA Unavailable Unavailable LETTIERE, A MARISOL PA Unavailable Unavailable LETTIERE, A MARISOL PA Unavailable Unavailable LETTIERE, A MARISOL PA Unavailable Unavailable LETTIERE, A MARISOL PA Unavailable Unavailable LETTIERE, A MARISOL PA Unavailable Unavailable LETTIERE, A MARISOL PA Unavailable Unavailable LETTIERE, A MARISOL PA Unavailable Unavailable LETTIERE, A MARISOL PA Unavailable Unavailable LETTIERE, A MARISOL PA Unavailable Unavailable LETTIERE, A MARISOL PA Unavailable Unavailable LETTIERE, A MARISOL PA Unavailable Unavailable LETTIERE, A MARISOL PA Unavailable Unavailable LETTIERE, A MARISOL PA Unavailable Unavailable LETTIERE, A MARISOL PA Unavailable Unavailable LETTIERE, A MARISOL PA Unavailable Unavailable LETTIERE, A MARISOL PA Unavailable Unavailable LETTIERE, A MARISOL PA Unavailable Unavailable LETTIERE, A MARISOL PA Unavailable Unavailable MAINI, HERMELINDA MD Unavailable Unavailable MAINI, HERMELINDA MD Unavailable Unavailable MAINI, HERMELINDA MD Unavailable Unavailable MAINI, HERMELINDA MD Unavailable Unavailable MAINI, HERMELINDA MD Unavailable Unavailable MAINI, HERMELINDA MD Unavailable Unavailable MAINI, HERMELINDA MD Unavailable Unavailable MAINI, HERMELINDA MD Unavailable Unavailable MAINI, HERMELINDA MD Unavailable Unavailable MAINI, HERMELINDA MD Unavailable Unavailable MAINI, HERMELINDA MD Unavailable Unavailable MAINI, HERMELINDA MD Unavailable Unavailable MAINI, HERMELINDA MD Unavailable Unavailable MAINI, HERMELINDA MD Unavailable Unavailable MAINI, HERMELINDA MD Unavailable Unavailable MAINI, HERMELINDA MD Unavailable Unavailable MAINI, HERMELINDA MD Unavailable Unavailable MAINI, HERMELINDA MD Unavailable Unavailable MAINI, HERMELINDA MD Unavailable Unavailable MAINI, HERMELINDA MD Unavailable Unavailable MAINI, HERMELINDA MD Unavailable Unavailable MAINI, HERMELINDA MD Unavailable Unavailable MAINI, HERMELINDA MD Unavailable Unavailable MAINI, HERMELINDA MD Unavailable Unavailable MAINI, HERMELINDA MD Unavailable Unavailable MAINI, HERMELINDA MD Unavailable Unavailable MAINI, HERMELINDA MD Unavailable Unavailable MAINI, HERMELINDA MD Unavailable Unavailable MAINI, HERMELINDA MD Unavailable Unavailable MAINI, HERMELINDA MD Unavailable Unavailable MAINI, HERMELINDA MD Unavailable Unavailable MAINI, HERMELINDA MD Unavailable Unavailable MAINI, HERMELINDA MD Unavailable Unavailable MAINI, HERMELINDA MD Unavailable Unavailable MAINI, HERMELINDA MD Unavailable Unavailable MAINI, HERMELINDA MD Unavailable Unavailable MAINI, HERMELINDA MD Unavailable Unavailable MAINI, HERMELINDA MD Unavailable Unavailable MAINI, HERMELINDA MD Unavailable Unavailable MAINI, HERMELINDA MD Unavailable Unavailable MAINI, HERMELINDA MD Unavailable Unavailable MAINI, HERMELINDA MD Unavailable Unavailable MAINI, HERMELINDA MD Unavailable Unavailable MAINI, HERMELINDA MD Unavailable Unavailable MAINI, HERMELINDA MD Unavailable Unavailable MAINI, HERMELINDA MD Unavailable Unavailable MAINI, HERMELINDA MD Unavailable Unavailable MAINI, HERMELINDA MD Unavailable Unavailable MAINI, HERMELINDA MD Unavailable Unavailable MAINI, HERMELINDA MD Unavailable Unavailable MAINI, HERMELINDA MD Unavailable Unavailable MAINI, HERMELINDA MD Unavailable Unavailable MAINI, HERMELINDA MD Unavailable Unavailable MAINI, HERMELINDA MD Unavailable Unavailable MAINI, HERMELINDA MD Unavailable Unavailable MAINI, HERMELINDA MD Unavailable Unavailable MAINI, HERMELINDA MD Unavailable Unavailable MAINI, HERMELINDA MD Unavailable Unavailable MAINI, HERMELINDA MD Unavailable Unavailable MAINI, HERMELINDA MD Unavailable Unavailable MAINI, HERMELINDA MD Unavailable Unavailable MAINHERMELIDNA Galaviz MD Unavailable Unavailable MAINI, HERMELINDARICHELLE OWENS Unavailable Unavailable MAINI, HERMELINDA OWENS Unavailable Unavailable MAINI, HERMELINDA OWENS Unavailable Unavailable MAINI, HERMELINDA OWENS Unavailable Unavailable MAINI, HERMELINDA OWENS Unavailable Unavailable MAINHERMELINDA Galaviz MD Unavailable Unavailable Layne HERNANDEZ Unavailable Unavailable Burns, A Jessica PA-C Unavailable Unavailable Burns, A Jessica PA-C Unavailable Unavailable Burns, A Jessica PA-C Unavailable Unavailable Burns, A Jessica PA-C Unavailable Unavailable Burns, A Jessica PA-C Unavailable Unavailable Burns, A Jessica PA-C Unavailable Unavailable Burns, A Jessica PA-C Unavailable Unavailable Burns, A Jessica PA-C Unavailable Unavailable Burns, A Jessica PA-C Unavailable Unavailable Burns, A Jessica PA-C Unavailable Unavailable Burns, A Jessica PA-C Unavailable Unavailable Burns, A Jessica PA-C Unavailable Unavailable Burns, A Jessica PA-C Unavailable Unavailable Burns, A Jessica PA-C Unavailable Unavailable Burns, A Jessica PA-C Unavailable Unavailable Burns, A Jessica PA-C Unavailable Unavailable Burns, A Jessica PA-C Unavailable Unavailable Burns, A Jessica PA-C Unavailable Unavailable Burns, A Jessica PA-C Unavailable Unavailable Burns, A Jessica PA-C Unavailable Unavailable Burns, A Jessica PA-C Unavailable Unavailable Burns, A Jessica PA-C Unavailable Unavailable Burns, A Jessica PA-C Unavailable Unavailable Burns, A Jessica PA-C Unavailable Unavailable Burns, A Jessica PA-C Unavailable Unavailable Burns, A Jessica PA-C Unavailable Unavailable Rissa Nieves MD Unavailable Unavailable Rissa Nieves MD Unavailable Unavailable Rissa Nieves MD Unavailable Unavailable Rissa Nieves MD Unavailable Unavailable Rissa Nieves Collin Unavailable Unavailable Rissa Nieves Collin Unavailable Unavailable Rissa Nieves Collin Unavailable Unavailable Rissa Nieves Collin Unavailable Unavailable Rissa Nieves Collindanis OWENS Unavailable Unavailable Rissa Nieves Collindanis OWENS Unavailable Unavailable Rissa Nieves Collindanis OWENS Unavailable Unavailable Rissa Nieves Collindanis OWENS Unavailable Unavailable Ezequiel N Collin Unavailable Unavailable Ezequiel N Collin Unavailable Unavailable Ezequiel N Collin Unavailable Unavailable Rissa Nieves Collin Unavailable Unavailable Rissa Nieves Collindanis OWENS Unavailable Unavailable Rissa Nieves Collin Unavailable Unavailable EzequielRissa Collin MD Unavailable Unavailable Ezequeil, N Collin MD Unavailable Unavailable Ezequiel, N Collin MD Unavailable Unavailable Ezequiel, N Collin MD Unavailable Unavailable Ezequiel, N Collin MD Unavailable Unavailable Ezequiel, N Collin MD Unavailable Unavailable Eezquiel, N Collin MD Unavailable Unavailable Ezequiel, N Collin MD Unavailable Unavailable Ezequiel, N Collin MD Unavailable Unavailable Ezequiel, N Collin MD Unavailable Unavailable Ezequiel, N Collin MD Unavailable Unavailable Ezequiel, N Collin MD Unavailable Unavailable Ezequiel, N Collin MD Unavailable Unavailable Ezequiel, N Collin MD Unavailable Unavailable Ezequiel, N Collin MD Unavailable Unavailable Ezequiel, N Collin MD Unavailable Unavailable Ezequiel, N Collin MD Unavailable Unavailable Ezequiel, N Collin MD Unavailable Unavailable Ezequiel, N Collin MD Unavailable Unavailable Ezequiel, N Collin MD Unavailable Unavailable Ezequiel, N Collin MD Unavailable Unavailable Ezequiel, N Collin MD Unavailable Unavailable Ezequiel, N Collin MD Unavailable Unavailable Ezequiel, N Collin MD Unavailable Unavailable Ezequiel, N Collin MD Unavailable Unavailable Ezequiel, N Collin MD Unavailable Unavailable Ezequiel, N Collin MD Unavailable Unavailable Ezequiel, N Collin MD Unavailable Unavailable Ezequiel, N Collin MD Unavailable Unavailable Ezequiel, N Collin MD Unavailable Unavailable Ezequiel, N Collin MD Unavailable Unavailable Ezequiel, N Collin MD Unavailable Unavailable Ezequiel, N Collin MD Unavailable Unavailable Ezequiel, N Collin MD Unavailable Unavailable Ezequiel, N Collin MD Unavailable Unavailable Ezequiel, N Collin MD Unavailable Unavailable Ezequiel, N Collin MD Unavailable Unavailable Ezequiel, N Collin MD Unavailable Unavailable Ezequiel, N Collin MD Unavailable Unavailable Ezequiel, N Collin MD Unavailable Unavailable Ezequiel, N Collin MD Unavailable Unavailable Ezequiel, N Collin MD Unavailable Unavailable Ezequiel, N Collin MD Unavailable Unavailable Ezequiel, N Collin MD Unavailable Unavailable Ezequiel, N Collin MD Unavailable Unavailable Ezequiel, N Collin MD Unavailable Unavailable Ezequiel, N Collin MD Unavailable Unavailable Ezequiel, N Collin MD Unavailable Unavailable Ezequiel, N Collin MD Unavailable Unavailable Ezequiel, N Collin MD Unavailable Unavailable Ezequiel, N Collin MD Unavailable Unavailable Ezequiel, N Collin MD Unavailable Unavailable Ezequiel, N Collin MD Unavailable Unavailable Ezequiel, N Collin MD Unavailable Unavailable Ezequiel, N Collin MD Unavailable Unavailable Ezequiel, N Collin MD Unavailable Unavailable Ezequiel, N Collin MD Unavailable Unavailable Ezequiel, N Collin MD Unavailable Unavailable Rissa Nieves MD Unavailable Unavailable Rissa Nieves MD Unavailable Unavailable Rissa Nieves MD Unavailable Unavailable Rissa Nieves MD Unavailable Unavailable Rissa Nieves MD Unavailable Unavailable Rissa Nieves MD Unavailable Unavailable Rissa Nieves MD Unavailable Unavailable Rissa Nieves MD Unavailable Unavailable ANTECOL, Garett GLEZ MD Unavailable Unavailable ANTECOL, Garett GLEZ MD Unavailable Unavailable ANTECOL, Garett GLEZ MD Unavailable Unavailable ANTECOL, Garett GLEZ MD Unavailable Unavailable ANTECOL, Garett GLEZ MD Unavailable Unavailable ANTECOL, Garett GLEZ MD Unavailable Unavailable ANTECOL, Garett GLEZ MD Unavailable Unavailable ANTECOL, Garett GLEZ MD Unavailable Unavailable ANTECOL, Garett GLEZ MD Unavailable Unavailable ANTECOL, Garett GLEZ MD Unavailable Unavailable ANTECOL, Garett GLEZ MD Unavailable Unavailable ANTECOL, Garett GLEZ MD Unavailable Unavailable ANTECOL, Garett GLEZ MD Unavailable Unavailable ANTECOL, Garett GLEZ MD Unavailable Unavailable ANTECOL, Garett GLEZ MD Unavailable Unavailable ANTECOL, Garett GLEZ MD Unavailable Unavailable ANTECOL, Garett GLEZ MD Unavailable Unavailable ANTECOL, Garett GLEZ MD Unavailable Unavailable ANTECOL, Garett GLEZ MD Unavailable Unavailable ANTECOL, Garett GLEZ MD Unavailable Unavailable ANTECOL, Garett GLEZ MD Unavailable Unavailable ANTECOL, Garett GLEZ MD Unavailable Unavailable ANTECOL, Garett GLEZ MD Unavailable Unavailable ANTECOL, Garett GLEZ MD Unavailable Unavailable ANTECOL, Garett GLEZ MD Unavailable Unavailable ANTECOL, Garett GLEZ MD Unavailable Unavailable ANTECOL, Garett GLEZ MD Unavailable Unavailable ANTECOL, Garett GLEZ MD Unavailable Unavailable ANTECOL, Garett GLEZ MD Unavailable Unavailable ANTECOL, Garett GLEZ MD Unavailable Unavailable ANTECOL, Garett GLEZ MD Unavailable Unavailable ANTECOL, Garett GLEZ MD Unavailable Unavailable ANTECOL, Garett GLEZ MD Unavailable Unavailable ANTECOL, Garett GLEZ MD Unavailable Unavailable ANTECOL, Garett GLEZ MD Unavailable Unavailable ANTECOL, Garett GLEZ MD Unavailable Unavailable ANTECOL, Garett GLEZ MD Unavailable Unavailable ANTECOL, Garett GLEZ MD Unavailable Unavailable ANTECOL, Garett GLEZ MD Unavailable Unavailable ANTECOL, Garett GLEZ MD Unavailable Unavailable ANTECOL, Garett GLEZ MD Unavailable Unavailable ANTECOL, Garett GLEZ MD Unavailable Unavailable ANTECOL, Garett GLEZ MD Unavailable Unavailable ANTECOL, Garett GLEZ MD Unavailable Unavailable ANTECOL, Garett GLEZ MD Unavailable Unavailable ANTECOL, Garett GLEZ MD Unavailable Unavailable ANTECOL, Garett GLEZ MD Unavailable Unavailable ANTECOL, Garett GLEZ MD Unavailable Unavailable ANTECOL, Garett GLEZ MD Unavailable Unavailable ANTECOL, Garett GLEZ MD Unavailable Unavailable ANTECOL, Garett GLEZ MD Unavailable Unavailable ANTECOL, Garett GLEZ MD Unavailable Unavailable ANTECOL, Garett AMARIS MD Unavailable Unavailable ANTECGarett GUSTAFSON MD Unavailable Unavailable Erich Barron MD Unavailable Unavailable Erich Barron MD Unavailable Unavailable Erich Barron MD Unavailable Unavailable Erich Barron MD Unavailable Unavailable Erich Barron MD Unavailable Unavailable Erich Barron MD Unavailable Unavailable Erich Barron MD Unavailable Unavailable Erich Barron MD Unavailable Unavailable Erich Barron MD Unavailable Unavailable Erich Barron MD Unavailable Unavailable Erich Barron MD Unavailable Unavailable Erich Barron MD Unavailable Unavailable Erich Barron MD Unavailable Unavailable Erich Barron MD Unavailable Unavailable Erich Barron MD Unavailable Unavailable Erich Barron MD Unavailable Unavailable Erich Barron MD Unavailable Unavailable Erich Barron MD Unavailable Unavailable Erich Barron MD Unavailable Unavailable Erich Barron MD Unavailable Unavailable Erich Barron MD Unavailable Unavailable Erich Barron MD Unavailable Unavailable Erich Barron MD Unavailable Unavailable Erich Barron MD Unavailable Unavailable Erich Barron MD Unavailable Unavailable Erich Barron MD Unavailable Unavailable Erich Barron MD Unavailable Unavailable Erich Barron MD Unavailable Unavailable Erich Barron MD Unavailable Unavailable Erich Barron MD Unavailable Unavailable Erich Barron MD Unavailable Unavailable Erich Barron MD Unavailable Unavailable Erich Barron MD Unavailable Unavailable Erich Barron MD Unavailable Unavailable Erich Barron MD Unavailable Unavailable Erich Barron MD Unavailable Unavailable Erich Barron MD Unavailable Unavailable Erich Barron MD Unavailable Unavailable Erich Barron MD Unavailable Unavailable Erich Barron MD Unavailable Unavailable Erich Barron MD Unavailable Unavailable Erich Barron MD Unavailable Unavailable Erich Barron MD Unavailable Unavailable Erich Barron MD Unavailable Unavailable Erich Barron MD Unavailable Unavailable Erich Barron MD Unavailable Unavailable Erich Barron MD Unavailable Unavailable Erich Barron MD Unavailable Unavailable Erich Barron MD Unavailable Unavailable Erich Barron MD Unavailable Unavailable Erich Barron MD Unavailable Unavailable Erich Barron MD Unavailable Unavailable Erich Barron MD Unavailable Unavailable Erich Barron MD Unavailable Unavailable Erich Barron MD Unavailable Unavailable Erich Barron MD Unavailable Unavailable Erich Barron MD Unavailable Unavailable Erich Barron MD Unavailable Unavailable Erich Barron MD Unavailable Unavailable Erich Barron MD Unavailable Unavailable Erich Barron MD Unavailable Unavailable Erich Barron MD Unavailable Unavailable Erich Barron MD Unavailable Unavailable Erich Barron MD Unavailable Unavailable Erich Barron MD Unavailable Unavailable Erich Barron MD Unavailable Unavailable Erich Barron MD Unavailable Unavailable Erich Barron MD Unavailable Unavailable Erich Barron MD Unavailable Unavailable Erich Barron MD Unavailable Unavailable Erich Barron MD Unavailable Unavailable Erich Barron MD Unavailable Unavailable Erich Barron MD Unavailable Unavailable Erich Barron MD Unavailable Unavailable Erich Barron MD Unavailable Unavailable Aakash Freitas MD Unavailable Unavailable Aakash Freitas MD Unavailable Unavailable Aakash Freitas MD Unavailable Unavailable Aakash Freitas MD Unavailable Unavailable Aakash Freitas MD Unavailable Unavailable Aakash Freitas MD Unavailable Unavailable Aakash Freitas MD Unavailable Unavailable Aakash Freitas MD Unavailable Unavailable Nizam, Rayees MD Unavailable Unavailable Nizam Rayamanda OWENS Unavailable Unavailable Nizam Rayamanda MD Unavailable Unavailable Nizam, Rayees MD Unavailable Unavailable Nizam, Rayees MD Unavailable Unavailable Nizam, Rayamanda MD Unavailable Unavailable Nizam Rayees MD Unavailable Unavailable Nizam Rayees MD Unavailable Unavailable Nizam Rayees MD Unavailable Unavailable Nizam, Rayamanda MD Unavailable Unavailable Nizam, Rayees MD Unavailable Unavailable Nizam, Rayees MD Unavailable Unavailable Nizam, Rayees MD Unavailable Unavailable Nizam, Rayees MD Unavailable Unavailable Nizam, Rayees MD Unavailable Unavailable Nizam, Rayees MD Unavailable Unavailable Nizam, Rayees MD Unavailable Unavailable Nizam, Rayamanda MD Unavailable Unavailable Nizam, Rayamanda MD Unavailable Unavailable Nizam Rayamanda MD Unavailable Unavailable Nizam Rayamanda MD Unavailable Unavailable Nizam Rayees MD Unavailable Unavailable Nizam Rayamanda MD Unavailable Unavailable Nizam Rayamanda MD Unavailable Unavailable Nizam, Rayamanda MD Unavailable Unavailable Nizam Rayamanda MD Unavailable Unavailable Nizam Rayees MD Unavailable Unavailable Nizam Rayees MD Unavailable Unavailable Nizam, Rayees MD Unavailable Unavailable Nizam Rayamanda MD Unavailable Unavailable Nizam, Rayamanda MD Unavailable Unavailable Nizam, Rayamanda MD Unavailable Unavailable Nilakeshiam Rayamanda MD Unavailable Unavailable Nilakeshiam Rayamanda MD Unavailable Unavailable Nizam Rayamanda MD Unavailable Unavailable Nizam Rayamanda MD Unavailable Unavailable Nizam Rayamanda MD Unavailable Unavailable Nizam Rayamanda MD Unavailable Unavailable Nizam Rayamanda MD Unavailable Unavailable Nilakeshiam Rayamanda MD Unavailable Unavailable Nilakeshiam Rayamanda MD Unavailable Unavailable Nizam Raymaanda MD Unavailable Unavailable Nizam, Rayees MD Unavailable Unavailable Nizam, Rayamanda MD Unavailable Unavailable Nizam, Rayees MD Unavailable Unavailable Nizam, Rayees MD Unavailable Unavailable Nizam, Rayamanda OWENS Unavailable Unavailable Nizam Rayamanda OWENS Unavailable Unavailable Nizam, Rayamanda OWENS Unavailable Unavailable Nizam Rayamanda OWENS Unavailable Unavailable Nizam, Rayees MD Unavailable Unavailable Nizam, Rayamanda MD Unavailable Unavailable Nizam, Rayees MD Unavailable Unavailable Nizam, Rayamanda MD Unavailable Unavailable Nizam Rayamanda OWENS Unavailable Unavailable Nizam, Rayees MD Unavailable Unavailable Nizam, Rayees MD Unavailable Unavailable Nizam, Rayees MD Unavailable Unavailable Nizam, Rayees MD Unavailable Unavailable Nizam, Rayees MD Unavailable Unavailable Nizam, Rayees MD Unavailable Unavailable Nizam, Rayees MD Unavailable Unavailable Nizam, Rayees MD Unavailable Unavailable Nizam, Rayees MD Unavailable Unavailable Nizam, Rayees MD Unavailable Unavailable Nizam, Rayees MD Unavailable Unavailable Nizam, Rayees MD Unavailable Unavailable Nizam, Rayees MD Unavailable Unavailable Nizam, Rayees MD Unavailable Unavailable Fish, J Robinson Unavailable Unavailable Fish, J Robinson Unavailable Unavailable Fish, J Robinson Unavailable Unavailable Fish, J Robinson Unavailable Unavailable Fish, J Robinson Unavailable Unavailable Fish, J Robinson Unavailable Unavailable Fish, J Robinson Unavailable Unavailable Fish, J Robinson Unavailable Unavailable Fish, J Robinson Unavailable Unavailable Fish, J Robinson Unavailable Unavailable Fish, J Robinson Unavailable Unavailable Fish, J Robinson Unavailable Unavailable Fish, J Robinson Unavailable Unavailable Fish, J Robinson Unavailable Unavailable Fish, J Robinson Unavailable Unavailable Fish, J Robinson Unavailable Unavailable Fish, J Robinson Unavailable Unavailable Fish, J Robinson Unavailable Unavailable Fish, J Robinson Unavailable Unavailable Fish, J Robinson Unavailable Unavailable Fish, J Robinson Unavailable Unavailable Fish, J Robinson Unavailable Unavailable Fish, J Robinson Unavailable Unavailable Fish, J Robinson Unavailable Unavailable Fish, J Robinson Unavailable Unavailable Fish, J Robinson Unavailable Unavailable Fish, J Robinson Unavailable Unavailable Fish, J Robinson Unavailable Unavailable Fish, J Robinson Unavailable Unavailable Fish, J Robinson Unavailable Unavailable Fish, J Robinson Unavailable Unavailable Fish, J Robinson Unavailable Unavailable Fish, J Robinson Unavailable Unavailable Fish, J Robinson Unavailable Unavailable Fish, J Robinson Unavailable Unavailable Fish, J Robinson Unavailable Unavailable Fish, J Robinson Unavailable Unavailable Fish, J Robinson Unavailable Unavailable Fish, J Robinson Unavailable Unavailable Fish, J Robinson Unavailable Unavailable Fish, J Robinson Unavailable Unavailable Fish, J Robinson Unavailable Unavailable Fish, J Robinson Unavailable Unavailable Fish, J Robinson Unavailable Unavailable Fish, J Robinson Unavailable Unavailable Fish, J Robinson Unavailable Unavailable Fish, J Robinson Unavailable Unavailable Fish, J Robinson Unavailable Unavailable Fish, J Robinson Unavailable Unavailable Fish, J Robinson Unavailable Unavailable Fish, J Robinson Unavailable Unavailable Fish, J Robinson Unavailable Unavailable Fish, J Robinson Unavailable Unavailable Fish, J Robinson Unavailable Unavailable Fish, J Robinson Unavailable Unavailable Fish, J Robinson Unavailable Unavailable Fish, J Robinson Unavailable Unavailable Fish, J Robinson Unavailable Unavailable Fish, J Robinson Unavailable Unavailable Fish, J Robinson Unavailable Unavailable Fish, J Robinson Unavailable Unavailable Fish, J Robinson Unavailable Unavailable Fish, J Robinson Unavailable Unavailable Fish, J Robinson Unavailable Unavailable Fish, J Robinson Unavailable Unavailable Fish, J Robinson Unavailable Unavailable Fish, J Robinson Unavailable Unavailable Fish, J Robinson Unavailable Unavailable Fish, J Robinson Unavailable Unavailable Fish, J Robinson Unavailable Unavailable Fish, J Robinson Unavailable Unavailable Fish, J Robinson Unavailable Unavailable Fish, J Robinson Unavailable Unavailable Fish, J Robinson Unavailable Unavailable Fish, J Robinson Unavailable Unavailable Fish, J Robinson Unavailable Unavailable Fish, J Robinson Unavailable Unavailable Fish, J Robinson Unavailable Unavailable Fish, J Robinson Unavailable Unavailable Fish, J Robinson Unavailable Unavailable Fish, J Robinson Unavailable Unavailable Fish, J Robinson Unavailable Unavailable Fish, J Robinson Unavailable Unavailable Fish, J Robinson Unavailable Unavailable Re-disclosure Warning The records that you are about to access may contain information from federally-assisted alcohol or drug abuse programs. If such information is present, then the following federally mandated warning applies: This information has been disclosed to you from records protected by federal confidentiality rules (42 CFR part 2). The federal rules prohibit you from making any further disclosure of this information unless further disclosure is expressly permitted by the written consent of the person to whom it pertains or as otherwise permitted by 42 CFR part 2. A general authorization for the release of medical or other information is NOT sufficient for this purpose. The Federal rules restrict any use of the information to criminally investigate or prosecute any alcohol or drug abuse patient.The records that you are about to access may contain highly sensitive health information, the redisclosure of which is protected by Article 27-F of the [facility] Public Health law. If you continue you may have access to information: Regarding HIV / AIDS; Provided by facilities licensed or operated by the [facility] Office of Mental Health; or Provided by the [facility] Office for People With Developmental Disabilities. If such information is present, then the following [facility] mandated warning applies: This information has been disclosed to you from confidential records which are protected by state law. State law prohibits you from making any further disclosure of this information without the specific written consent of the person to whom it pertains, or as otherwise permitted by law. Any unauthorized further disclosure in violation of state law may result in a fine or long-term sentence or both. A general authorization for the release of medical or other information is NOT sufficient authorization for further disc losure. Allergies and Adverse Reactions Type Description Substance Reaction Status Data Source(s ) captopril captopril captopril active [facility]) Drug allergy captopril captopril [facility] Family History Family Member Name Family Member Gender Family Member Status Date o f Status Description Data Source(s) Unknown Unknown Problem [facility] ([facility], ) Unknown Unknown Problem MEDENT ([facility], ) Encounters Encounter Providers Location Date Indications Data Source(s ) 03/15/2021 01:00:00 AM EDT - 021 12:48:17 PM EDT NETSMART ([facility]) Office Visit Attender: Collin Nieves MD Main Office 02/09/2021 10:15:00 AM EDT MEDENT ([facility]) Outpatient Attender: MARIA R MCDANIELS MD 02/01/2021 12:00:0 0 AM [facility] Outpatient Attender: Petra Santa MDConsultant: [facility] [id number] 01/31/2021 11:36:00 PM EDT [facility] Office Visit Attender: Collin Nieves MD Main Office 01/26/2021 10:15:00 AM EDT MEDENT ([facility]) Inpatient Attender: Petra Santa MDAdmitter: Petra Santa MD EMERGENCY ROOM- 01/15/2021 03:21:00 PM EDT - 03/14/2021 09:30:[address] [facility] Patient discharged. Outpatient Attender: Aakash Freitas MD [place] [id number] 12/30/2020 07 :21:00 AM EDT MEDENT ([facility]) Outpatient Attender: Collin Nieves MD Main Office 12/29/2020 05:00:00 PM EDT MEDENT ([facility]) Inpatient Attender: Leana oCrey mitter: Leana Barron MDConsultant: [facility] SystemsConsultant: HERMELINDA VELEZ MD [id number] 12/26/2020 03 :12:00 PM EDT - 01/15/2021 01:51:00 PM EDT [facility] Patient discharged. Outpatient Attender: Jessica Burns PA-C Main Office 12/26/2020 0 1:45:00 PM EDT MEDENT ([facility]) Outpatient Attender: Shira CARMONA 12/21/2020 12:00:00 AM [facility] Outpatient Attender: MARISOL calloway 12/20/2020 06:00:00 PM EDT MEDENT ([facility]) Outpatient Attender: Shira Quesada PAReferrer: Lico Horner MD [id number] 12/15/2020 12:00:00 AM [facility] Outpatient Attender: Letty Harrison/Polo/Mendez mcqueen/[place]ol[place] 12/14/2020 01:30:00 PM EDT MEDENT ([facility], ) Outpatient Attender: MARISOL calloway 12/08/2020 04:00:00 PM EDT MEDENT ([facility]) Outpatient Attender: Robinson Goodwin [facility] Office 12/07/2020 01:45:0 0 PM EDT MED[facility] ([facility] Outpatient Attender: AMARIS BOCANEGRA MD Main Office 12/06/2020 09:00:00 AM EDT MEDENT ([facility]) Outpatient Attender: MARISOL calloway 12/05/2020 12:15:00 PM EDT MEDENT ([facility]) Outpatient Attender: Lico Horner MD Physical Therapy 11/15/2020 0 2:30:00 PM EDT MEDENT ([facility] ) Outpatient Attender: Leana Barron MD Main Office 11/13/2020 03:15:00 PM EDT MEDENT ([facility]) Outpatient Attender: Leana Barron MD Main Office 10/18/2020 03:15:00 PM EDT MED[facility] ([facility]) Outpatient Attender: NANCY CHOWDHURY [facility] 09/23 03:00:00 PM EDT MED[facility] ([facility] Outpatient Attender: MARISOL Cedeno brodie 09/29/2020 01:00:00 PM EDT MEDENT ([facility]) <td ID="encounterTypeDescriptionID0">[facility] M [facility] Follow-Up</td><td>Amaris Hancock MD, FACS</td><td>Amaris Nickerson MD [facility]</td><td>09/21/2020</td><td>2:06PM</td><td>3:09PM</td><td><content ID="encounterDiagnosisID0-0">Pseudophakic - Both Eyes</content>, <content ID="encounterDiagnosisID0-1">Assessment of Taking Medication For Diabetes Long- term Use of Insulin</content>, <content ID="encounterDiagnosisID0-2">Posterior Capsule Opacification Eccentric Capsule Right Eye</content>, <content ID="encounterDiagnosisID0-3">Borderline Glaucoma Ocular Hypertension Both Eyes</ content>, <content ID="encounterDiagnosisID0-4">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</content></td>Outpatient Attender: Amaris Hancock MD, FACS Amaris Nickerson MD [facility] 09/21/2020 02:06:00 PM EDT - 09/21/2020 03:09:00 PM EDT Assessment of Taking Medication For Diab etes Long- term Use of InsulinPseudophakic - Both EyesAssessment of Taking Medication For Diabetes Long-term Use of InsulinPseudophakic - Both EyesPosterior Capsule Opacification Eccentric Capsule Right EyePosterior Capsule Opacification Eccentric Capsule Right Eye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Borderline Glaucoma Ocular Hypertension Both EyesBorderline Glaucoma Ocular Hypertension Both Eyes [place] (Amaris Hancock MD [facility]) Assessment of Taking Medication For Diab etes Long-term Use of Insulin Pseudophakic - Both Eyes Assessment of Taking Medication For Diab etes Long-term Use of Insulin Pseudophakic - Both Eyes Posterior Capsule Opacification Eccentri c Capsule Right Eye Posterior Capsule Opacification Eccentri c Capsule Right Eye Type 2 Diab W/ Diab Retinopathy Mod Nonp rolif Without Macular Edema Type 2 Diab W/ Diab Retinopathy Mod Nonp rolif Without Macular Edema 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 Outpatient Attender: Leana Barron MDAdmitter: Leana kwok MD [id number] 09/15/2020 10:00:07 AM EDT - 09/17/2020 02:35:00 PM EDT [facility] Patient discharged. Outpatient Referrer: Collin Nieves MD MOB-MOB.PAT 09/12/19 10:22:16 AM EDT - 09/11/2020 10:22:36 AM EDT [facility] Outpatient Attender: Collin BLASeferrer: Collin Ingram OB-MOB.PAT 09/11/2020 12:00:00 AM EDT - 09/11/2020 12:37:22 PM EDT [facility] Inpatient Attender: MEL Valle nder: Collin Nieves MDAdmitter: Collin Nieves MD [id number] 09/07/2020 08:12:50 AM EDT [facility] Outpatient Referrer: Zach Lira MD 09/04/2020 10:01:31 AM EDT [facility] Outpatient Attender: [facility] Office 08/31/2020 11:30:0 0 AM EDT MEDENT ([facility] Outpatient Attender: Collin Nieves MD Main Office 08/30/2020 08:30:00 AM EDT MEDENT ([facility]) Outpatient Attender: [facility] Office 08/17/2020 01:30:0 0 PM EDT MED[facility] ([facility] Outpatient Attender: [facility] Office 07/27/2020 12:45:0 0 PM EST MED[facility] ([facility] Outpatient Attender: Naya Chinchilla MD Main office - [facility] 07/04/2020 12:00:00 PM EST MEDENT ([facility], ) Outpatient Attender: NANCY CHOWDHURY [facility] Office 06/2020 12:30:00 PM EST [facility] ([facility] Outpatient Attender: Letty Harrison/Polo/Mendez mcqueen/[place] 06/26/2020 12:30:00 PM EST MED[facility] ([facility], ) Outpatient Attender: NANCY CHOWDHURY [facility] Office 05/27 01:45:00 PM EST [facility] Outpatient Attender: AMARIS BOCANEGRA MD Main Office 06/09/2020 07:45:00 AM EST [facility] ([facility]11[facility] 01:45:0 0 PM EST MED[facility] ([facility] Outpatient Attender: Naya Chinchilla MD Main office - [facility] 04/03/2020 12:00:00 PM EST MEDENT ([facility], ) Outpatient Attender: NANCY CHOWDHURY [facility] Office 02/24 02:00:00 PM EDT MED[facility] ([facility] Outpatient Attender: Letty Harrison/Polo/A ngel/Reindl 03/14/2020 03:00:00 PM EDT [facility] ([facility] Outpatient Attender: Julia Harrison/Polo/[place]/ Reindl 03/13/2020 03:45:00 PM EDT [facility] ([facility] Outpatient Attender: MARISOL panchaly 03/03/2020 03:50:00 PM EDT MED[facility] ([facility]) Outpatient Attender: ODESSA ROSAS MD [facility] 08:45:00 AM EDT [facility] ([facility]) <td ID="encounterTypeDescriptionID1">Rx Refills/Changes</td><td>Amaris Hancock MD, FACS</td><td></td><td>06/28/2020</td><td>02/16/2020 3:32PM</td><td>02/16/2020 11:59PM</td><td></td>Outpatient Attender: Amaris Hancock MD, FACS 02/16/2020 03:32:00 PM EDT - 02/16/2020 11:59:00 PM EDT [place] (Amaris Hancock MD [facility]) <td ID="encounterTypeDescriptionID2">DFE and Testing</td><td>Amaris Nickerson MD, FACS</td><td>Amaris Nickerson MD [facility]</td><td>02/16/2020</td><td>2:19PM</td><td>3:11PM</td><td><content ID="encounterDiagnosisID2-0">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</content>, <content ID="encounterDiagnosisID2-1"> Assessment of Taking Medication For Diabetes Long-term Use of Insulin</content>, <content ID="encounterDiagnosisID2-2">Borderline Glaucoma Ocular Hypertension Both Eyes</content>, <content ID="encounterDiagnosisID2-3">Posterior Capsule Opacification Eccentric Capsule Right Eye</content>, <content ID="encounterDiagnosisID2-4">Pseudophakic - Both Eyes</content></td>Outpatient Attender: Amaris Hancock MD, FACS Amaris Nickerson MD [facility] 02/16/2020 02:19:0 0 PM EDT - 02/16/2020 03:11:00 PM EDT Pseudophakic - Both EyesAssessment of [place] Medication For Diabetes Long-term Use of InsulinPseudophakic - Both EyesAssessment of Taking Medication For Diabetes Long-term Use of InsulinPseudophakic - Both EyesAssessment of Taking Medication For Diabetes Long-term Use of InsulinPosterior Capsule Opacification Eccentric Capsule Right EyePosterior Capsule Opacification Eccentric Capsule Right EyePosterior Capsule Opacification Eccentric Capsule Right Eye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Borderline Glaucoma Ocular Hypertension Both EyesBorderline Glaucoma Ocular Hypertension Both EyesBorderline Glaucoma Ocular Hypertension Both Eyes [place] (Amaris Hancock MD [facility]) Pseudophakic - Both Eyes Assessment of Taking Medication For Diab etes Long-term Use of Insulin Pseudophakic - Both Eyes Assessment of Taking Medication For Diab etes Long-term Use of Insulin Pseudophakic - Both Eyes Assessment of Taking Medication For Diab etes Long-term Use of Insulin Posterior Capsule Opacification Eccentri c Capsule Right Eye Posterior Capsule Opacification Eccentri c Capsule Right Eye Posterior Capsule Opacification Eccentri c Capsule Right Eye Type 2 Diab W/ Diab Retinopathy Mod Nonp rolif Without Macular Edema Type 2 Diab W/ Diab Retinopathy Mod Nonp rolif Without Macular Edema Type 2 Diab W/ Diab Retinopathy Mod Nonp rolif Without Macular Edema 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 COVID-19 VACCINE, MRNA-1273, LNP-S (MODERNA)/PF 07/19/2020 1 2:00:00 AM EST completed [facility] COVID-19 VACCINE Moderna 06/23/2020 12:00:00 AM EST completed [facility] Vaccine Series Complete: NOThis Data was Submitted to [facility] Via [employer]. COVID-19 VACCINE, MRNA-1273, LNP-S (MODERNA)/PF 06/23/2020 1 2:00:00 AM EST completed [facility] Medications Medication Brand Name Start Date Product Form Dose Route Admi nistrative Instructions Pharmacy Instructions Status Indications Reaction Description Data Source(s) Multivitamin Multivitamin 03/15/2021 01:00:00 AM EDT 1.0 {tablet } completed NETSMART ([facility]) Esomeprazole Magnesium 40 MG Esomeprazole Magnesium 03/15/2021 0 1:00:00 AM EDT completed NETSMA RT ([facility]) Furosemide 20 MG Furosemide 03/15/2021 01:00:00 AM EDT completed [facility] ([facility] ) Metoprolol Succinate ER 25 MG Metoprolol Succinate ER 2020 01:00:00 AM EDT completed NETSMAR T ([facility]) Nitroglycerin 0.4 MG Nitroglycerin 03/15/2021 01:00:00 AM EDT completed [facility] ([facility]) Insulin Aspart 100 UNIT/ML Insulin Aspart 03/15/2021 01:00:00 AM EDT completed [facility] ([facility]) B-12 500 MCG B-12 03/15/2021 01:00:00 AM EDT compl eted [facility] ([facility]) Gabapentin 400 MG Gabapentin 03/15/2021 01:00:00 AM EDT completed [facility] ([facility] ) Ferrous Gluconate 324 (38 Fe) MG Ferrous Gluconate 03/15/2021 01:00 :00 AM EDT completed [facility] ([facility]) Levothyroxine Sodium 50 MCG Levothyroxine Sodium 03/15/2021 01:00:00 AM EDT completed [facility] ( [facility]) Memantine HCl 10 MG Memantine HCl 03/15/2021 01:00:00 AM EDT completed [facility] ([facility]) K-Tab 10 MEQ K-Tab 03/15/2021 01:00:00 AM EDT comp leted [facility]SM[facility] ([facility]) Antacid Ultra Strength 1000-200 MG Antacid Ultra Strength 01:00:00 AM EDT completed NETSMAR T ([facility]) Magnesium Oxide (Elemental) 400 MG Magnesium Oxide (Elementa l) 03/15/2021 01:00:00 AM EDT completed [facility] ([facility]) Allopurinol 100 MG Allopurinol 03/15/2021 01:00:00 AM EDT completed [facility] ([facility]) Atorvastatin Calcium 10 MG Atorvastatin Calcium 03/15/2021 01:00:00 A M EDT completed [facility] ( [facility]) Clopidogrel Bisulfate 75 MG Clopidogrel Bisulfate 03/15/2021 01:00: 00 AM EDT completed [facility] ([facility]) DULoxetine HCl 30 MG DULoxetine HCl 03/15/2021 01:00:00 AM EDT completed [facility] ([facility]) Docusate Sodium 100 MG Docusate Sodium 03/15/2021 01:00:00 AM EDT completed [facility] ([facility]) Sucralfate 1 GM/10ML Sucralfate 03/15/2021 01:00:00 AM EDT completed [facility] ([facility]) Lantus SoloStar 100 UNIT/ML Lantus SoloStar 03/15/2021 01:00:00 AM EDT 6.0 {unit} completed [facility] ([facility]) TiZANidine HCl 2 MG TiZANidine HCl 03/15/2021 01:00:00 AM EDT completed [facility] ([facility]) Xalatan 0.005 % Xalatan 03/15/2021 01:00:00 AM EDT completed [facility] ([facility]) Ipratropium-Albuterol 0.5-2.5 (3) MG/3ML Ipratropium-Albuter ol 03/15/2021 01:00:00 AM EDT completed [facility] ([facility]) Aspirin EC 81 MG Aspirin EC 03/15/2021 01:00:00 AM EDT completed [facility] ([facility] ) Acetaminophen 325 MG Acetaminophen 03/15/2021 01:00:00 AM EDT completed [facility] ([facility]) cefdinir 300 MG Oral Capsule Cefdinir 12/20/2020 12:00:00 AM EDT ORAL active MEDENT ([facility]) 24 HR metoprolol succinate 25 MG Extended Release Oral Tablet Metoprolol Succinate ER 12/06/2020 12:00:00 AM EDT ORAL active [facility] ([facility]) 24 HR metoprolol succinate 25 MG Extended Release Oral Tablet Metoprolol Succinate ER 12/06/2020 12:00:00 AM EDT ORAL active MEDENT ([facility]) 24 HR metoprolol succinate 25 MG Extende d Release Oral Tablet Metoprolol Succinate ER 25 MG Oral Tablet Extended Release 24 Hour (TOPROL-XL) Metoprolol Succinate ER 25 MG Oral Tablet Extended Release 24 Hour (TOPROL-XL) 12/06/2020 12:00:00 AM EDT 25 mg Oral active Take 25 mg by mouth daily [facility] Docusate Sodium 100 MG Oral Capsule Stool Softener 12/05/2020 12:00 :00 AM EDT ORAL completed [facility] ([facility] clopidogrel 75 MG Oral Tablet [Plavix] Plavix 12/05/2020 12:00:00 AM EDT ORAL active [facility] Cephalexin 500 MG Oral Capsule Cephalexin 12/05/2020 12:00:00 AM EDT ORAL completed MEDENT ([facility]) Acetaminophen 500 MG Oral Tablet [Tylenol] Tylenol Extra Str ength 12/05/2020 12:00:00 AM EDT ORAL completed MEDENT ([facility]) BD Pen Needle Mini U/F 31G X 5 MM [id number] 12/05/2020 12:00:00 AM E DT active USE DIRECTED TO INJECT INSULIN DIRECTED [facility] Docusate Sodium 100 MG Oral Capsule DSS 100 MG Oral Ca psule DSS 100 MG Oral Capsule 12/05/2020 12:00:00 AM EDT Oral active Take by mouth [facility] Acetaminophen 500 MG Oral Tablet [Tylenol] Tylenol Extra Str ength 12/05/2020 12:00:00 AM EDT ORAL active M EDENT ([facility]) clopidogrel 75 MG Oral Tablet [Plavix] Plavix 12/05/2020 12:00:00 AM EDT ORAL active MEDENT ([facility]) Docusate Sodium 100 MG Oral Capsule Stool Softener 12/05/2020 12:00 :00 AM EDT ORAL active MEDENT ([facility]) Cephalexin 500 MG Oral Capsule Cephalexin 12/05/2020 12:00:00 AM EDT ORAL active MEDENT ([facility]) [place] 12/05/2020 12:00:00 AM EDT active MEDENT ([facility] Cephalexin 500 MG Oral Tablet Cephalexin 12/05/2020 12:00:00 AM EDT ORAL completed MEDENT ([facility] latanoprost 0.05 MG/ML Ophthalmic Soluti on Latanoprost 0.005 % Ophthalmic Solution (XALATAN) Latanoprost 0.005 % Ophthalmic Solution (XALATAN) 08/25 12:00:00 AM EDT active INSTILL 1 DROP BOTH EYES EVERY NIGHT AT BEDTIME [facility] latanoprost 0.05 MG/ML Ophthalmic Soluti on Latanoprost 0.005% Ophthalmic Solution Latanoprost 0.005% Ophthalmic Solution 09/21/2020 12:00:00 AM EDT 1 active latanoprost 0.05 MG/ ML Ophthalmic Solution DC ([facility]) Insulin Lispro 100 UNT/ML Injectable Elvira ution insulin lispro (HumaLOG) injection 1-4 Units insulin lispro (HumaLOG) injection 1-4 Units 1 08:00:00 AM EDT U Subcutaneous active 1-4 Units, Subcutaneous, MEALSS, First dose on 09/17/20 at 0800
2 units Nutritional and Correction Insulin Scale Blood Glucose (mg/dl) <70 start hypoglycemia protocol Glucose &nbsp ; Eats >=50% Eats <50%& amp;nbsp; Eats Nothing (mg/dl) of meal of meal or NPO &am p;nbsp;70- 120 1 units 1 units 0 units 121-170 & amp;nbsp; 2 units 1 units 0 units 171-220 & nbsp; 2 units 1 units 0 units 221-270 &n bsp; 3 units 2 units 1 units 271- 320 3 units 2 units 1 units 321- 370 3 units 2 units 1 units 371-42 0 4 units 3 units 2 units >420 call MD 4 units 3 units 2 units Test glucose within 30 minutes of insulin administration. Administer insulin within 15 minutes (before or after) of the patient starting to eat. For patients that are NPO, use the NPO (correction) scale to cover POC glucose at 08:00, 12:00, 17:00.
[facility] Medication administered onsite clopidogrel 75 MG Oral Tablet Clopidogrel Bisulfate 09/17/2020 1 2:00:00 AM EDT ORAL completed MEDENT ([facility]) clopidogrel 75 MG Oral Tablet clopidogrel (PLAVIX) 75 MG tablet clopidogrel (PLAVIX) 75 MG tablet 09/17/2020 12:00:00 AM EDT 75 mg Oral active Take 1 tablet (75 mg total) by mouth daily [facility] Acetaminophen 325 MG / Hydrocodone Byron trate 5 MG Oral Tablet HYDROcodone- acetaminophen (NORCO) 5-325 MG per tablet 1 tablet HYDROcodone-acetaminophen (NORCO) 5-325 MG per tablet 1 tablet 09/16/2020 08:14:42 PM EDT 1 { tbl} Oral active 1 tablet, Oral, Every 4 hours PRN, moderate pain (4-6), Starting on 09/16/20 at 2014, For 7 days [facility] Medication administered onsite dextrose 50 % solution [id number] 09/16/2020 02:48:26 PM EDT completed Starting on Sat 09/16 at 1448, For 1 dose
Joyce Lundberg: argenist override
[facility] Medication administered onsite Acetaminophen 325 MG / Hydrocodone Byron trate 5 MG Oral Tablet HYDROcodone- acetaminophen (NORCO) 5-325 MG per tablet 1 tablet HYDROcodone-acetaminophen (NORCO) 5-325 MG per tablet 1 tablet 09/16/2020 11:00:00 AM EDT 1 { tbl} Oral completed 1 tablet, Oral, Once, On 09/16/20 at 1100, For 1 dose
In addition to the 1 tablet she received this AM
[facility] Medication administered onsite Spironolactone 25 MG Oral Tablet spironolactone (ALDAC TONE) tablet 25 mg spironolactone (ALDACTONE) tablet 25 mg 09/16/2020 09:00:00 AM EDT 25 mg Oral active 25 mg, Oral, 2 times daily, First dose on 09/16/20 at 0900
For administration and preparation considerations, refer to Hazardous Drugs in the Workplace Policy on Intranet.
[facility] Medication administered onsite Furosemide 20 MG Oral Tablet furosemide (LASIX) tablet 20 mg furosemide (LASIX) tablet 20 mg 09/16/2020 09:00:00 AM EDT 20 mg Oral activ e 20 mg, Oral, LOOPBID, First dose on 09/16/20 at 0900 [facility] Medication administered onsite Insulin Lispro 100 UNT/ML Injectable Elvira ution insulin lispro (HumaLOG) injection 1-12 Units insulin lispro (HumaLOG) injection 1-12 Units 09/17/19 08:00:00 AM EDT U Subcutaneous aborted 1-1 2 Units, Subcutaneous, MEALSS, First dose on 09/16/20 at 0800
AVERAGE 6 Units Nutritional and Correction Insulin Scale Blood Glucose (mg/dl) <70 start hypoglycemia protocol Glucose Eats >=50% Eats <50% Eats Nothing (mg/dl) of meal of meal or NPO 70-1 20 4 units 2 units 0 units 121-170 &a mp;nbsp; 6 units 3 unit s 0 units 171-220 &n bsp; 7 units 4 units 1 units 221-270 &n bsp; 8 units 5 units 2 units 271- 320 9 units 6 units 3 units 321- 370 10 units 7 units 4 units 371-420 &nbsp ; 11 units 8 units& nbsp; 5 units >420 call MD 12 units &a mp;nbsp; 9 units 6 units Test glucose within 30 minutes of insulin administration. Administer insulin within 15 minutes (before or after) of the patient starting to eat. For patients that are NPO, use the&am p;nbsp; NPO (correction) scale to cover POC glucose at 08:00, 12:00, 17:00.
[facility] Medication administered onsite heparin (porcine) injection 5,000 Units [id number] 09/17/19 06:00:00 AM EDT 5000 U Subcutaneous active 5,000 Units , Subcutaneous, Every 8 hours (scheduled), First dose on 09/16/20 at 0600
If platelet count is less than 100,000 or hematocrit is less than 25, or if there is a 5 point decrease in hematocrit, do not give the dose and call physician/designee.
[facility] Medication administered onsite Acetaminophen 325 MG / Hydrocodone Byron trate 5 MG Oral Tablet HYDROcodone- acetaminophen (NORCO) 5-325 MG per tablet HYDROcodone-acetaminophen (NORCO) 5- 325 MG per tablet 09/16/2020 12:00:00 AM EDT 1 {tbl} Oral active Take 1 tablet by mouth every 6 (six) hours as needed for pain iStop Reference #: [id number] Max Daily Amount: 4 tablets [facility] Acetaminophen 325 MG / Hydrocodone Bitartrate 5 MG Ora l Tablet Hydrocodone-Acetaminophen 09/16/2020 12:00:00 AM EDT ORAL completed MEDENT ([facility]) normal saline flush 0.9 % injection 3 mL [id number] 09/15/2020 10:00:00 PM EDT 3 mL Intravenous active 3 mL , Intravenous, PROTOCOL, First dose on Fri09/15/20 at 2200
flush per protocol, D/C Main IV fluid if appropriate
[facility] Medication administered onsite Insulin Glargine 100 UNT/ML Injectable S olution [Lantus] insulin glargine (LANTUS) injection 20 Units insulin glargine (LANTUS) injection 20 Units 09/15/2020 10:00:00 PM EDT 20 U Subcutaneous aborted 20 Units, Subcutaneous, Nightly (Lantus), First dose (after last modification) on Fri09/15/20 at 2200
Basal Insulin (Lantus) Adjustments based on AM Blood Glucose Blood Glucose&nbs p; Adjustment Less than 70 mg/dl Nursing to initiate hypoglycemia protocol 70 to 100 mg/dl &nb sp; Pharmacy to decrease total daily dose by 20% 101 to 200 mg/dl &nb sp; No Change
[facility] Medication administered onsite Bisacodyl 5 MG Delayed Release Oral Tablet bisacodyl ( DULCOLAX) EC tablet 5 mg bisacodyl (DULCOLAX) EC tablet 5 mg 09/15/2020 09:26:40 PM EDT 5 mg Oral active 5 mg, Oral, Daily [place] N, constipation, Starting on Fri09/15/20 at 2126
hold for loose stools
[facility] Medication administered onsite Magnesium Hydroxide 80 MG/ML Oral Suspen warren magnesium hydroxide (MILK OF MAGNESIA) 400 MG/5ML suspension 30 mL magnesium hydroxide (MILK OF MAGNESIA) 4 00 MG/5ML suspension 30 mL 09/15/2020 09:26:35 PM EDT 30 mL Oral active 30 mL, Oral, Daily PRN, constipation, Starting on Fri09/15/20 at 2126
hold for loose stools
[facility] Medication administered onsite POLYETHYLENE GLYCOL 3350 142 MG/ML Oral Solution polyethylene glycol (GLYCOLAX) packet 17 g polyethylene glycol (GLYCOLAX) packet 17 g 09/15/2020 09:26:34 PM EDT 17 g Oral active 17 g, Or al, Daily PRN, constipation, Starting on Fri09/15/20 at 2126 [facility] Medication administered onsite Hydralazine Hydrochloride 10 MG Oral Tab let hydrALAZINE (APRESOLINE) tablet 10 mg hydrALAZINE (APRESOLINE) tablet 10 mg 09/15/2020 09:23:37 PM EDT 10 mg Oral active 10 mg, Oral, E very 6 hours PRN, other, SBP>160, Starting on Fri09/15/20 at 2123 [facility] Medication administered onsite tizanidine 4 MG Oral Tablet tiZANidine (ZANAFLEX) tabl et 2 mg tiZANidine (ZANAFLEX) tablet 2 mg 09/15/2020 09:00:00 PM EDT 2 mg Oral active 2 mg, Oral, 2 times daily, First dose on Fri09/15/20 at 2100 [facility] Medication administered onsite latanoprost 0.05 MG/ML Ophthalmic Soluti on latanoprost (XALATAN) 0.005 % ophthalmic solution 1 drop latanoprost (XALATAN) 0.005 % ophthalmic solution 1 drop 09/15/2020 09:00:00 PM EDT 1 [drp] active 1 drop, Both Eyes, Nightly, First dose on Fri09/15/20 at 2099 [facility] Medication administered onsite Memantine hydrochloride 10 MG Oral Tablet memantine (N AMENDA) tablet 10 mg memantine (NAMENDA) tablet 10 mg 09/15/2020 09:00:00 PM EDT 10 mg Oral active 10 mg, Oral, 2 times daily, Firs t dose on Fri09/15/20 at 2099 [facility] Medication administered onsite gabapentin 400 MG Oral Capsule gabapentin (NEURONTIN) capsule 400 mg gabapentin (NEURONTIN) capsule 400 mg 09/15/2020 09:00:00 PM EDT 400 mg Oral active 400 mg, Oral, 3 times daily, First dose on Fri09/15/20 at 2099 [facility] Medication administered onsite Docusate Sodium 100 MG Oral Capsule docusate sodium (C OLACE) capsule 100 mg docusate sodium (COLACE) capsule 100 mg 09/15/2020 09:00:00 PM EDT 100 mg Oral active 100 mg, Oral, Nightly, First dose on Fri09/15/20 at 2099
hold for loose stools
[facility] Medication administered onsite duloxetine 60 MG Delayed Release Oral Ca psule DULoxetine (CYMBALTA) DR capsule 60 mg DULoxetine (CYMBALTA) DR capsule 60 mg 09/15/2020 09:00:00 PM EDT 60 mg Oral active 60 mg, Oral, Nightly , First dose on Fri09/15/20 at 2099 [facility] Medication administered onsite Aspirin 81 MG Delayed Release Oral Tablet aspirin EC t ablet 81 mg aspirin EC tablet 81 mg 09/15/2020 09:00:00 PM EDT 81 mg Oral activ e 81 mg, Oral, 2 times daily, First dose on Fri09/15/20 at 2099 [facility] Medication administered onsite atorvastatin 10 MG Oral Tablet atorvastatin (LIPITOR) tablet 10 mg atorvastatin (LIPITOR) tablet 10 mg 09/15/2020 09:00:00 PM EDT 10 mg Oral active 10 mg, Oral, Nightly, First dose on Fri09/15/20 at 2100 [facility] Medication administered onsite Brimonidine tartrate 2 MG/ML Ophthalmic Solution brimonidine (ALPHAGAN) 0.2 % ophthalmic solution 1 drop brimonidine (ALPHAGAN) 0.2 % ophthalmic solution 1 drop 09/15/2020 09:00:00 PM EDT 1 [drp] active 1 drop, Both Eyes, Daily, First dose on Fri09/15/20 at 2100 [facility] Medication administered onsite pantoprazole 40 MG Delayed Release Oral Tablet pantoprazole (PROTONIX) EC tablet 40 mg pantoprazole (PROTONIX) EC tablet 40 mg 09/15/2020 07:00:00 PM E DT 40 mg Oral active Gastroesophageal Reflux Diseas e 40 mg, Oral, Daily, Indications: Gastroesophageal Reflux Disease, First dose on Fri09/15/20 at 1900 [facility] Gastroesophageal Reflux Disease Medication administered onsite ferrous gluconate 324 MG Oral Tablet ferrous gluconate (FERGON) tablet 324 mg ferrous gluconate (FERGON) tablet 324 mg 09/15/2020 07:00:00 PM EDT 324 mg Oral active 324 mg, Oral, Daily, First dose on Fri09/15/20 at 1900
separate as far as possible from antacids, take with food
[facility] Medication administered onsite Allopurinol 100 MG Oral Tablet allopurinol (ZYLOPRIM) tablet 100 mg allopurinol (ZYLOPRIM) tablet 100 mg 09/15/2020 07:00:00 PM EDT 100 mg Oral active 100 mg, Oral, Daily, First dose on Fri09/15/20 at 1900 [facility] Medication administered onsite fentaNYL Citrate (PF) (SUBLIMAZE) injection 25 mcg [id number] 09/15/2020 06:29:21 PM EDT 25 ug Intravenous active 25 mcg, Intravenous, Every 2 hour PRN, severe pain (7-10), pain uncontrolled with PO analgesia, Starting on Fri09/15/20 at 1829, For 7 days [facility] Medication administered onsite Acetaminophen 325 MG / Hydrocodone Byron trate 5 MG Oral Tablet HYDROcodone- acetaminophen (NORCO) 5-325 MG per tablet 1 tablet HYDROcodone-acetaminophen (NORCO) 5-325 MG per tablet 1 tablet 09/15/2020 06:29:16 PM EDT 1 { tbl} Oral aborted 1 tablet, Oral, Every 4 hours PRN, moderate pain (4-6), Starting on Fri09/15/20 at 1829, For 7 days [facility] Medication administered onsite ondansetron (ZOFRAN) injection 4 mg [id number] 09/15/2020 06:27:3 3 PM EDT 4 mg Intravenous active 4 mg, In travenous, Every 4 hours PRN, nausea, vomiting, Starting on Fri09/15/20 at 1827 [facility] Medication administered onsite 2 ML Metoclopramide 5 MG/ML Prefilled Sy ringe metoclopramide (REGLAN) injection 10 mg metoclopramide (REGLAN) injection 10 mg 09/15/2020 06:27:33 PM E DT 10 mg Intravenous active 10 mg, I ntravenous, Every 6 hours PRN, for Nausea/Vomiting not relieved by zofran, Starting on Fri09/15/20 at 1827 [facility] Medication administered onsite Acetaminophen 325 MG Oral Tablet acetaminophen (TYLENO L) 325 MG tablet 650 mg acetaminophen (TYLENOL) 325 MG tablet 650 mg 09/15/2020 06:27:29 PM EDT 650 mg Oral active 650 mg, Or al, Every 4 hours PRN, mild pain (1-3), headaches, Starting on Fri09/15/20 at 1827
"Maximum dose of acetaminophen is 4,000 mg from all sources in 24 hours."
[facility] Medication administered onsite Nitroglycerin 0.4 MG Sublingual Tablet n itroglycerin (NITROSTAT) SL tablet 0.4 mg nitroglycerin (NITROSTAT) SL tablet 0.4 mg 09/15/2020 06:24:49 P M EDT 0.4 mg Sublingual active 0.4 mg, S ublingual, Every 5 min PRN, chest pain, Starting on Fri09/15/20 at 1824
May administer up to 3 doses per episode.
[facility] Medication administered onsite clopidogrel 75 MG Oral Tablet clopidogrel (PLAVIX) tab let 75 mg clopidogrel (PLAVIX) tablet 75 mg 09/15/2020 04:00:00 PM EDT 75 mg Oral active 75 mg, Oral, Daily, First dose on Fri09/15/20 at 1600 [facility] Medication administered onsite iodixanol (VISIPAQUE) 320 MG/ML injection 150 mL [id number] 09/15/2020 02:52:40 PM EDT 150 mL Intra-arterial completed 150 mL, Intra-arterial, Once in imaging, contrast, Starting on Fri09/15/20 at 1452, For 1 dose [facility] Medication administered onsite heparin (porcine) injection [id number] 09/15/2020 01:49:30 PM EDT completed Code/trauma/sedation medication, Starting on Fri09/15/20 at 1349 [facility] Medication administered onsite 2 ML Midazolam 1 MG/ML Injection midazolam (VERSED) in jection midazolam (VERSED) injection 09/15/2020 01:36:19 PM EDT Intravenous co mpleted Intravenous, Code/trauma/sedation medication, Starting on Fri09/15/20 at 1336 [facility] Medication administered onsite fentaNYL Citrate (PF) (SUBLIMAZE) injection [id number] 09/15/2020 01:36:14 PM EDT Intravenous completed In travenous, Code/trauma/sedation medication, Starting on Fri09/15/20 at 1336 [facility] Medication administered onsite sodium chloride 0.9% (NS) infusion 8496-2685-11 09/15/2020 11:00:00 A M EDT Intravenous aborted at 100 mL/hr, Intravenous, Continuous, Starting on Fri09/15/20 at 1100 [facility] Medication administered onsite Mupirocin 0.02 MG/MG Topical Ointment mupirocin (BACTR OBAN) 2 % ointment mupirocin (BACTROBAN) 2 % ointment 09/13/2020 12:00:00 AM EDT Topical active Apply topically 2 (t wo) times a day Apply to each nare twice a day with a cotton swab, starting the five days before surgery. [facility] Mupirocin 0.02 MG/MG Topical Ointment Mupirocin 09/13/2020 12:00:00 AM EDT completed MED[facility] ([facility]) lubiprostone 0.024 MG Oral Capsule Lubiprostone 08/02/2020 12:00:00 A M EST completed MEDENT ([facility] Spironolactone 25 MG Oral Tablet Spironolactone 07/27/2020 12:00:00 A M EST ORAL active MEDENT ([facility] Spironolactone 25 MG Oral Tablet Spironolactone 25 MG Oral Tablet (ALDACTONE) Spironolactone 25 MG Oral Tablet (ALDACTONE) 07/27/2020 12:00:00 AM EST Oral active Take by mouth [facility] Spironolactone 25 MG Oral Tablet Spironolactone 07/27/2020 12:00:00 A M EST ORAL active MEDENT ([facility]) Brimonidine tartrate 2 MG/ML Ophthalmic Solution Brimonidine Tartrate 0.2 % Ophthalmic Solution (ALPHAGAN) Brimonidine Tartrate 0.2 % Ophthalmic So lution (ALPHAGAN) 06/28/2020 12:00:00 AM EST active INSTILL 1 DROP BOTH EYES TWICE DAILY [facility] Brimonidine tartrate 2 MG/ML Ophthalmic Solution Brimonidine Tartrate 0.2% Ophthalmic Solution Brimonidine Tartrate 0.2% Ophthalmic Solution 06/28/19 12:00:00 AM EST active brimonidine tartrate 2 MG/ML Ophthalmic Solution [place]EN[place] ([facility]) ammonium lactate 120 MG/ML Topical Cream Ammonium Lactate 06/15/2020 12:00:00 AM EST active MED[facility] ([facility] Bacitracin 0.4 UNT/MG / Neomycin 0.0035 MG/MG / Polymyxin B 5 UNT/MG Topical Ointment Triple Antibiotic 06/15/2020 12:00:00 AM EST active MEDENT ([facility] Freestyle Vaughn 14 Day/Sensor/Flash Monitoring System 05/18/2020 12:00:00 AM EST completed MEDENT ([facility] Freestyle Vaughn 14 Day/[place]/Flash Monitoring System 05/18/2020 12:00:00 AM EST completed MEDENT ([facility] tramadol hydrochloride 50 MG Oral Tablet traMADol HCl 50 MG Oral Tablet (ULTRAM) traMADol HCl 50 MG Oral Tablet (ULTRAM) 05/08/2020 12:00:00 AM EST active TAKE 1 TABLET BY MANNY TH EVERY 8 HOURS NEEDED FOR PAIN. MAXIMUM DAILY DOSE IS 3 [facility] tramadol hydrochloride 50 MG Oral Tablet Tramadol HCL 05/08/2020 12:00:00 AM EST ORAL active MEDENT ([facility] Esomeprazole 40 MG Delayed Release Oral Capsule Esomeprazole Magnesium 04/17/2020 12:00:00 AM EST active MEDENT ([facility] Acetaminophen 325 MG / Oxycodone Hydrochloride 5 MG Or al Tablet [Percocet] Percocet 04/03/2020 12:00:00 AM EST ORAL active MEDENT ([facility]) Inject Dexamthosone Phosphate [id number] 03/23/2020 12:00:00 A M EDT completed MEDENT ([facility] Medication administered onsite Inject Triamcinolone Acetonide 10 ML, [facility] [id number] 03/23/2020 12:00:00 AM EDT completed MEDENT ([facility] Medication administered onsite Sucralfate 1000 MG Oral Tablet Sucralfate 1 GM Oral Ta blet (CARAFATE) Sucralfate 1 GM Oral Tablet (CARAFATE) 02/10/2020 12:00:00 AM EDT active [facility] Simethicone 80 MG Chewable Tablet simethicone (MYLICON ) 80 MG chewable tablet simethicone (MYLICON) 80 MG chewable tablet 10/09/2019 12:00:00 AM EDT 80 mg Oral aborted Chew 1 tablet (80 mg total) every 6 (six) hours as needed for flatulence [facility] Acetaminophen 325 MG Oral Tablet acetaminophen (TYLENO L) 325 MG tablet acetaminophen (TYLENOL) 325 MG tablet 10/09/2019 12:00:00 AM EDT 65 0 mg Oral aborted Take 2 tablets (650 mg total) by mouth every 6 (six) hours as needed for pain or fever [facility] latanoprost 0.05 MG/ML Ophthalmic Soluti on Latanoprost 0.005% Ophthalmic Solution Latanoprost 0.005% Ophthalmic Solution 09/10/2019 12:00:00 AM EDT 1 aborted latanoprost 0.05 MG/ ML Ophthalmic Solution [place] ([facility]) Brimonidine tartrate 2 MG/ML Ophthalmic Solution Brimonidine Tartrate 0.2% Ophthalmic Solution Brimonidine Tartrate 0.2% Ophthalmic Solution 08/09/19 12:00:00 AM EDT aborted brimonidine tartrate 2 MG/ML Ophthalmic Solution DC ([facility]) Sucralfate 1000 MG Oral Tablet sucralfate (CARAFATE) 1 G tablet sucralfate (CARAFATE) 1 G tablet 1 g Oral aborted Take 1 g by mouth 4 (four) times a day [facility] Misoprostol 0.2 MG Oral Tablet misoprostol (CYTOTEC) 2 00 MCG tablet misoprostol (CYTOTEC) 200 MCG tablet 200 ug Oral aborted Take 200 mcg by mouth 4 (four) times a day [facility] sennosides, RETIREMENT 8.6 MG Oral Tablet senna (SENOKOT) 8.6 MG tablet senna (SENOKOT) 8.6 MG tablet 1 {tbl} Oral aborted Take 1 tablet by mouth as needed. [facility] lubiprostone 0.024 MG Oral Capsule lubiprostone (AMITI ZA) 24 MCG capsule lubiprostone (AMITIZA) 24 MCG capsule 24 ug Oral aborted Take 24 mcg by mouth 2 (two) times a day [facility] Insurance Providers Payer name Policy type / Coverage type Policy ID Covered alliance party ID Covered alliance party's relationship to ponce Policy Ponce Plan Information [facility] Adminstrative Ser Commercial [id number] Self [place] Adminstrative Ser Commercial [id number] Self [id number] Statewide Independent Ppo Commercial [id number] Self STATEWIDE IND PPO 2 [id number] Statewide Independent Ppo Commercial [id number] Self [id number] Aetna Medigap Part B [id number] Self Aetna Medigap Part B [id number] Self [id number] [place] Option [place] Medigap Part B [id number] Self [id number] [place] Option [place] Med[place] Part B [id number] Self [id number] [place] Option [place] Med[place] B [id number] [place] Option [place] Med[place] B [id number] Self [id number] [place] Option [place] Med[place] Part B [id number] Self [id number] [place] Option [place] Medigap Part B [id number] Self [id number] [place] Option [place] Medigap Part B [id number] Self [id number] [place] Option [place] Medigap Part B [id number] Self [id number] [place] Option [place] Medigap Part B [id number] Self [id number] [place]ALTH[place] OPT A 7 [id number] 1 [id number] AETNA 2 [id number] AETNA 2 [id number] [employer]etna Medigap Part B [id number] Self [id number] BLUE CROSS CLEANING PLAN [id number] SP [id number] AETNA [facility] [place] [id number] SP [id number] HMO BLUE [id number] SP [id number] [employer]etna Medigap Part B [id number] 3.0 Self [id number] AETNA 2 [id number] 1 [id number] [employer]na Medigap Part B [id number] 3.0 Self [id number] Aetna Medigap Part B [id number] 3.0 Self [id number] Aetna Medigap Part B [id number] Self [employer]na Medigap Part B [id number] 3.0 Self [id number] [employer]etna Medigap Part B [id number] 3.0 Self [id number] Aetna Medigap Part B [id number] 2.16.840.1.417830.3.227.99.572.211 3.0 Self [id number] [employer] [facility] Part B [id number] MRN.[id number] [id number] Self [id number] EXCELLUS H [id number] Self [id number] [facility] [id number] Self Excell[facility] Healthy [place] [facility] [id number] 2.16.840.1.113274.3.227.99.572.2113.0 Self VY [id number] [facility] [id number] 2.16.840.1.099417.3.227.99.572.2113.0 Self VY [id number] [facility] [id number] MRN.[id number]-i4ll-[id number] Self [id number] [place] HEALTH[place] OPT A 7 [id number] 1 [id number] [facility] [id number] 2.16.840.1.567775.3.227.99.572.2113.0 Self VY [id number] [facility] Healthy [facility] [id number] 2.16.840.1.031971.3.227.99.572.2113.0 Self VY [id number] [facility] Healthy [place] [facility] [id number] 2.16.840.1.518381.3.227.99.572.2113.0 Self VY [id number] BC HEALTH[place] OPT A 7 [id number] 1 [id number] Excell[facility] Healthy [facility] [id number] MRN.[id number]-[id number] Self [id number] [facility] Healthy [place] [facility] [id number] 2.16.840.1.914681.3.227.99.572.2113.0 Self VY [id number] BS iFACETS Commercial [id number] 2.0.1.677178.3.227.99.1629.96 03.0 Self [id number] Bshmo ZFC,Yot,ZFH,Ymb,ZFP Health Maintenance Organization (HMO) [id number] 2.0.1.151706.3.227.99.991.08889.0 Self V [id number] MVP Commercial [id number] 2.0.1.487036.3.227.99.716.11810. 0 Self [id number] MVP Exchange Hmo Commercial [id number] 2.0.1.906459.3.227. 99.991.70076.0 Self [id number] MVP Exchange Hmo Commercial [id number] 2.0.1.100217.3.227. 99.991.24852.0 Self [id number] MVP Commercial [id number] 2..1.302916.3.227.99.716.13432. 0 Self [id number] MVP Hmo - In Network Health Maintenance Organization (HMO) 5 1334 Self MVP Commercial 94031 Self MVP Exchange Hmo Commercial [id number] 2.0.1.226567.3.227. 99.991.19996.0 Self [id number] MVP Exchange Hmo Commercial [id number] 2.0.1.971796.3.227. 99.991.33591.0 Self [id number] MVP Exchange Hmo Commercial [id number] 2.0.1.798418.3.227. 99.991.79068.0 Self [id number] MVP Exchange Hmo Commercial [id number] 2.0.1.243988.3.227. 99.991.10400.0 Self [id number] MVP Exchange Hmo Commercial [id number] 2.16840.1.366257.3.227. 99.991.91454.0 Self [id number] MVP H [id number] Self [id number] MVP Commercial [id number] 2.16840.1.320132.3.227.99.716.12328. 0 Self [id number] MVP Commercial [id number] 2.16840.1.236689.3.227.99.716.05763. 0 Self [id number] MVP Exchange Hmo Commercial [id number] 2.0.1.737066.3.227. 99.991.54020.0 Self [id number] MVP Hmo - In Network Health Maintenance Organization (HMO) [id number] MRN.572.30nf260m-[id number]-[id number] Self [id number] MVP Hmo/Pos Health Maintenance Organization (HMO) 83386 Self MVP Exchange Hmo Commercial [id number] 2.0.1.354767.3.227. 99.991.77572.0 Self [id number] MVP Exchange Hmo Commercial [id number] 2.0.1.745177.3.227. 99.991.95731.0 Self [id number] MVP Exchange Hmo Commercial [id number] 2.840.1.017499.3.227. 99.991.48663.0 Self [id number] MVP Commercial [id number] 2.0.1.084468.3.227.99.716.73231. 0 Self [id number] MVP Exchange Hmo Commercial [id number] 2.16840.1.458947.3.227. 99.991.02967.0 Self [id number] MVP Exchange Hmo Commercial [id number] 2.16.840.1.894653.3.227. 99.991.78939.0 Self [id number] MVP Exchange Hmo Commercial [id number] 2.0.1.735362.3.227. 99.991.07650.0 Self [id number] MVP Commercial [id number] 2.840.1.689150.3.227.99.716.49797. 0 Self [id number] MVP Exchange Hmo Commercial [id number] 2.0.1.232005.3.227. 99.991.62412.0 Self [id number] MVP Exchange Hmo Commercial [id number] 2.0.1.983681.3.227. 99.991.10226.0 Self [id number] [facility] Medigap Part B [id number] 20.1.293000.3.227.99.991.45899.0 Self 3 [id number] [place] [id number] 2.0.1.460516.3.227.99.991.90206.0 Self 1 [id number] [facility] Medigap Part B [id number] 20.1.525071.3.227.99.991.76367.0 Self 3 [id number] Medicare [place] Medicare Primary [id number] 2.0.1.940688.3.227.99.991.95110.0 Self 0 [id number] [facility] Medigap Part B [id number] 20.1.297593.3.227.99.991.35083.0 Self 3 [id number] [facility] Medigap Part B [id number] 20.1.668823.3.227.99.991.62179.0 Self 3 [id number] [place] Medicare Primary [id number] 2.0.1.681973.3.227.99.991.91143.0 Self 0 [id number] [place] Medicare Primary [id number] 2.840.1.757300.3.227.99.991.44504.0 Self 1 [id number] [facility] Medigap Part B [id number] 2.840.1.142345.3.227.99.991.38661.0 Self 3 [id number] [facility] Medigap Part B [id number] 2.840.1.902495.3.227.99.991.86427.0 Self 3 [id number] [place] Medicare Primary [id number] 2.840.1.391991.3.227.99.991.13888.0 Self 0 [id number] [facility] Medigap Part B [id number] 2.840.1.934478.3.227.99.991.26528.0 Self 3 [id number] [place] Medicare Primary [id number] 2.840.1.301208.3.227.99.991.36465.0 Self 0 [id number] [facility] Medigap Part B [id number] 2.840.1.191550.3.227.99.991.20721.0 Self 3 [id number] [place] Medicare Primary [id number] 2.840.1.175771.3.227.99.991.07192.0 Self 0 [id number] [place] Medicare Primary [id number] 2.840.1.266071.3.227.99.991.31162.0 Self 1 [id number] [facility] Medigap Part B [id number] 2.840.1.572174.3.227.99.991.17657.0 Self 3 [id number] [place] Medicare Primary [id number] 2.840.1.658654.3.227.99.991.53268.0 Self 0 [id number] [facility] Medigap Part B [id number] 2.16.840.1.419738.3.227.99.991.59619.0 Self 3 [id number] [place] Medicare Primary [id number] 2.16.840.1.544297.3.227.99.991.71368.0 Self 0 [id number] [place] Medicare Primary [id number] 2.16.840.1.728919.3.227.99.991.53307.0 Self 0 [id number] [facility] Medigap Part B [id number] 2.16.840.1.735439.3.227.99.991.34266.0 Self 3 [id number] [place] Medicare Primary [id number] 2.16.840.1.335832.3.227.99.991.14442.0 Self 0 [id number] [facility] Medigap Part B [id number] 2.16.840.1.471645.3.227.99.991.29751.0 Self 3 [id number] [place] Medicare Primary [id number] 2.16.840.1.075135.3.227.99.991.60229.0 Self 0 [id number] [facility] Medigap Part B [id number] 2.16.840.1.043769.3.227.99.991.38560.0 Self 3 [id number] [place] Medicare Primary [id number] 2.16.840.1.883437.3.227.99.991.97310.0 Self 0 [id number] [facility] Medigap Part B [id number] 2.16.840.1.772809.3.227.99.991.89538.0 Self 3 [id number] [place] Medicare Primary [id number] 2.16.840.1.817133.3.227.99.991.84606.0 Self 1 [id number] [facility] Medigap Part B [id number] 2.16.840.1.225958.3.227.99.991.15596.0 Self 3 [id number] [place] Medicare Primary [id number] 2.16.840.1.817707.3.227.99.991.42289.0 Self 1 [id number] [facility] Medigap Part B [id number] 2.16.840.1.336168.3.227.99.991.92719.0 Self 3 [id number] Medicare Part B [facility] [id number] 0 [id number] [facility] [id number] Gem [id number] Aarp Medigap Part B 26832 Self MEDICARE [id number] SP [id number] A Aarp Medigap Part B [id number] 2.0.1.436646.3.227.99.716.1 6842.0 Self [id number] MEDICARE [id number] Gem [id number] Medicare Medicare Primary [id number] 2.16840.1.356671.3.227. 99.716.71400.0 Self [id number] MEDICARE [id number] SP [id number] Medicare Medicare Primary [id number] 2.16840.1.060066.3.227. 99.716.16512.0 Self [id number] Aarp Medigap Part B [id number] 2.16840.1.313544.3.227.99.716.1 6842.0 Self [id number] Medicare Medicare Primary [id number] Self MEDICARE [id number] xxxxxxxxxxx [id number] [facility] [id number] xxxxxxxxxxx [id number] MEDICARE A [id number] Self [id number] Medicare Medicare Primary [id number] 2.16840.1.205232.3.227. 99.716.94632.0 Self [id number] Aar Medigap Part B [id number] 2.16.840.1.542550.3.227.99.716.1 6842.0 Self [id number] Aar Medigap Part B [id number] 2.16.840.1.568782.3.227.99.716.1 6842.0 Self [id number] MEDICARE [id number] Gem [id number] A Aar Medigap Part B [id number] 2.16.840.1.918746.3.227.99.716.1 6842.0 Self [id number] Aar Medigap Part B [id number] 2.16.840.1.474736.3.227.99.716.1 6842.0 Self [id number] INSURANCE COVID-19 COVID Gem C OVID INSURANCE COVID-19 [id number] xxxxx [id number] INSURANCE COVID-19 COVID Gem C OVID AARP U [id number] Self [id number] INSURANCE COVID-19 COVID Gem C OVID 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 [facility] Medigap Part B 01596 Self ERIC MATAMORAS PHY [id number] SP [id number] MVP HEALTH CARE P [id number] S [id number] MVP HEALTH CARE P UNAVAILABLE [id number] S UN AVAILABLE MVP 7 [id number] 1 [id number] 500 SELF PAY 2 UNAVAILABLE 1 UNAVAILA BLE PHCS 2 [id number] 1 [id number] AETNA 2 [id number] 1 [id number] BCBS HMO [place] O [id number] S [id number] EXCELLUS BCBS P [id number] S VYH [id number] AETNA [facility] [place] P [id number] S [id number] AARP HEALTH CARE OPTIONS [id number] SP [id number] AARP HEALTH CARE OPTIONS [id number] S [id number] [place] MEDIC[place] DIVISION [id number] S [id number] MEDICARE - [place] [id number] S [id number] Medicare Part B [facility] [place] [facility] [place] Other 0 [id number] Self 0 Medicare Part B [place] Other 0 [id number] Self 0 MEDICARE C [id number] S [id number] AARP O [id number] S [id number] 411 Medicare Part B [place] Other 0 [id number] Self 0 Medicare Part B [place] Other 0 [id number] Self 0 MEDICARE C [id number] S [id number] A Medicare Medicare Primary [id number] 2.16.840.1.288735.3.227 .99.716.67312.0 Self [id number] [facility] Medigap Part B [id number] MRN.8646.[id number] [id number]-[id number] Self [id number] [place] Medicare Primary [id number] MRN.8646.[id number] Self [id number] [facility] Health Maintenance Organization (HMO) [id number] MRN.8646.gtd93832-[id number] Self [id number] Aetna Medigap Part B [id number] MRN.8646.[id number] 5-nz3k-[id number] Self [id number] [facility] Medigap Part B [id number] MRN.8646.eju53555-[id number] 0-uo7s-[id number] Self [id number] [place] Medicare Primary [id number] MRN.8646.[id number]-[id number] Self [id number] [facility] Health Maintenance Organization (O) [id number] MRN.8646.[id number]-[id number] Self [id number] [facility] Part B [id number] MRN.8646.uny31176-lo32-089 4-zn0s-43i37q8194wv Self [id number] [place]/NGS Medicare Primary [id number] MRN.8646.[id number] Self [id number] [facility] Health Maintenance Organization (O) [id number] MRN.8646.[id number]-[id number] Self [id number] [facility] Part B [id number] MRN.8646.[id number] [id number]-[id number] Self [id number] Medicare [place]/NGS Medicare Primary [id number] MRN.8646.[id number]-sp0j-[id number] Self [id number] [facility] Health Maintenance Organization (O) [id number] MRN.8646.[id number] Self [id number] [facility] Part B [id number] MRN.8646.stt76979-[id number] [id number]-[id number] Self [id number] Medicare [place]/NGS Medicare Primary [id number] MRN.8646.hqx71464-[id number]-[id number] Self [id number] [facility] Health Maintenance Organization (O) [id number] MRN.8646.[id number] Self [id number] [facility] Health Care Options Medigap Part B [id number] MRN.[id number]-[id number] Self [id number] Medicare Natl Gov't Servi Medicare Primary [id number] MRN.1767.6675914z-[id number] Self [id number] [facility] Health Care Options [facility] Part B [id number] MRN.[id number] Self [id number] Medicare Natl Gov't Servi Medicare Primary [id number] MRN.1767.8905482o-[id number]-[id number] Self [id number] 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 [facility] Part B [id number] MRN.[id number]-[id number] Self [id number] [facility] Healthcare Options [facility] Part B [id number] MRN.[id number]-[id number] Self [id number] Medicare (Part B) Medicare Primary [id number] MRN.572.38ir667d-u4ro-[id number] Self [id number] [facility] Part B [id number] MRN.8646.[id number] [id number]-[id number] Self [id number] [place]/[facility] Medicare Primary [id number] MRN.8646.[id number]-[id number] Self [id number] [facility] Health Maintenance Organization (HMO) [id number] MRN.8646.[id number] Self [id number] 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 [facility] Part B [id number] MRN.[id number] Self [id number] [facility] Medigap Part B [id number] MRN.572.11ok065w-u0zw-[id number] Self [id number] Medicare (Part B) Medicare Primary [id number] MRN.572.54cj952o-e5yr-[id number] Self [id number] [facility] Medigap Part B [id number] MRN.8646.iri48719-js71-820 3-za3h-46n07c5874iw Self [id number] [place]/NGS Medicare Primary [id number] MRN.8646.bhi37459-zw23-4000-nk2w-[id number] Self [id number] [facility] Health Maintenance Organization (HMO) [id number] MRN.8646.[id number]-[id number] Self [id number] [facility] Medigap Part B [id number] MRN.8646.hqz29762-fj34-247 8-ma4i-[id number] Self [id number] [place]/NGS Medicare Primary [id number] MRN.8646.[id number]-[id number] Self [id number] [facility] Health Maintenance Organization (HMO) [id number] MRN.8646.[id number]-qe7i-[id number] Self [id number] Medicare Dme Medigap Part B [id number] MRN.[id number]-drsb-7i23-[id number] Self [id number] [facility] Insurance Medigap Part B [id number] MRN.[id number]-flfz-1m77-[id number] Self [id number] Medicare Medicare Primary [id number] MRN.[id number]-xyns-3q04-[id number] Self [id number] [facility] Medigap Part B [id number] 2.16840.1.166961.3.227.99.8646.1 5882.0 Self [id number] [place]/[facility] Medicare Primary [id number] 2.16.840.1.162551.3.227.99.8646.65070.0 Self [id number] [facility] Health Maintenance Organization (HMO) [id number] 2.16840.1.944928.3.227.99.8646.39354.0 Self [id number] Medicare Dme Medigap Part B [id number] 2.0.1.833390.3.227.99 .936.7882.0 Self [id number] [employer] Insurance Medigap Part B [id number] 2.0.1.149109.3.227. 99.936.7882.0 Self [id number] Medicare Medicare Primary [id number] 2.840.1.985817.3.227. 99.936.7882.0 Self [id number] Medicare Dme Supplies Medigap Part B [id number] 2.840.1.512841.3.227.99.991.22710.0 Self 1 [id number] Medicare Dme Supplies Medigap Part B [id number] 2.0.1.038647.3.227.99.991.09859.0 Self 1 [id number] Medicare Dme Supplies Medigap Part B [id number] 2.16840.1.068341.3.227.99.991.24517.0 Self 1 [id number] Medicare Medicare Primary [id number] 2.840.1.362933.3.227 .99.716.87021.0 Self [id number] Medicare Dme Supplies Medigap Part B [id number] 2.16.840.1.468735.3.227.99.991.10763.0 Self 1 [id number] Medicare Dme Medigap Part B [id number] 2.0.1.635786.3.227.99 .936.7882.0 Self [id number] [facility] [id number] 2.160.1.881717.3.227. 99.936.7882.0 Self [id number] Medicare Medicare Primary [id number] 2.0.1.408253.3.227. 99.936.7882.0 Self [id number] [facility] [id number] 2.0.1.651778.3.227.99.1767.19861.0 Self [id number] Medicare Natl Gov't Servi Medicare Primary [id number] 2.0.1.649915.3.227.99.1767.53192.0 Self [id number] [facility] [id number] 2.0.1.391046.3.227.99.1767.51202.0 Self [id number] Medicare Natl Gov't Servi Medicare Primary [id number] 2.0.1.548737.3.227.99.1767.47347.0 Self [id number] 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 [facility] Part B [id number] 2.0.1.267432.3.227.99.572.2113.0 Self [id number] [facility] [id number] 2.0.1.132372.3.227.99.572.2113.0 Self 33 [id number] Medicare (Part B) Medicare Primary [id number] 2.16.840.1.444007.3.227.99.572.2113.0 Self [id number] [facility] Care Options Medicasey Part B [id number] 2.16.840.1.482372.3.227.99.1767.53350.0 Self [id number] Medicare Natl Gov't Servi Medicare Primary [id number] 2.16.840.1.704815.3.227.99.1767.58274.0 Self [id number] Medicare Dme Medigap Part B [id number] 2.16840.1.872453.3.227.99 .936.7882.0 Self [id number] [facility] Insurance Medigap Part B [id number] 2.16840.1.627021.3.227. 99.936.7882.0 Self [id number] Medicare Medicare Primary [id number] 2.16.840.1.679575.3.227. 99.936.7882.0 Self [id number] Medicare Dme Medigap Part B [id number] 2.16840.1.691699.3.227.99 .936.7882.0 Self [id number] [facility] Insurance Medigap Part B [id number] 2.16840.1.154350.3.227. 99.936.7882.0 Self [id number] Medicare Medicare Primary [id number] 2.16.840.1.821145.3.227. 99.936.7882.0 Self [id number] Medicare Medicare Primary [id number] 2.16840.1.524338.3.227 .99.716.03216.0 Self [id number] [facility] Options Medigap Part B [id number] 2.16.840.1.835973.3.227.99.1629.9603.0 Self 3 [id number] [place] Medigap Part B [id number] 2.16.840.1.662153.3.227.99.1629.9603.0 Self 1 [id number] [facility] Health Maintenance Organization (HMO) [id number] 0 2.16.840.1.535191.3.227.99.1629.9603.0 Self 8 [id number] Aet[employer] Commercial [id number] 2..0.1.692829.3.227.99.1629.9603.0 Self [id number] Medicare Dme Medigap Part B [id number] 2.0.1.406077.3.227.99 .936.7882.0 Self [id number] [facility] Insurance Medigap Part B [id number] 2.0.1.366651.3.227. 99.936.7882.0 Self [id number] Medicare Medicare Primary [id number] 2.0.1.654116.3.227.99.936 .7882.0 Self [id number] 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 [facility] [id number] 2.0.1.700568.3.227.99.572.2113.0 Self SE [id number] [facility] Options Medigap Part B [id number] 2.0.1.024498.3.227.99.572.2113.0 Self [id number] Medicare (Part B) Medicare Primary [id number] 2.160.1.938916.3.227.99.572.2113.0 Self 09 [id number] 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 [facility] Part B [id number] 2.0.1.970455.3.227.99.572.2113.0 Self SE [id number] [facility] Medigap Part B [id number] 2.16.840.1.522335.3.227.99.572.2113.0 Self 33 [id number] Medicare (Part B) Medicare Primary [id number] 2.16.840.1.163034.3.227.99.572.2113.0 Self 09 [id number] AARP HE[employer] C[employer] OPTIONS [id number] Medicare Dme Medigap Part B [id number] 2.16.840.1.189314.3.227.99 .936.7882.0 Self [id number] [facility] [id number] 2.16.840.1.412401.3.227. 99.936.7882.0 Self [id number] Medicare Medicare Primary [id number] 2.16.840.1.644004.3.227.99.936 .7882.0 Self [id number] AARP O [id number] S [id number] 9 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 [facility] Part B [id number] 2.16840.1.173468.3.227.99.572.2113.0 Self SE [id number] [employer] [facility] Options [facility] Part B [id number] 2.16.840.1.855173.3.227.99.572.2113.0 Self [id number] Medicare (Part B) Medicare Primary [id number] 2.16.840.1.144383.3.227.99.572.2113.0 Self 09 [id number] Medicare Dme Medigap Part B [id number] 2.16.840.1.191606.3.227.99 .936.7882.0 Self [id number] [facility] Part B [id number] 2.16840.1.736710.3.227. 99.936.7882.0 Self [id number] Medicare Medicare Primary [id number] 2.16.840.1.860475.3.227.99.936 .7882.0 Self [id number] AARP O [id number] S [id number] 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 [facility] Medigap Part B [id number] 2.16.840.1.744255.3.227.99.572.2113.0 Self SE [id number] [employer] [facility] Options Medigap Part B [id number] 2.16.840.1.123165.3.227.99.572.2113.0 Self [id number] Medicare (Part B) Medicare Primary [id number] 2.16.840.1.785666.3.227.99.572.2113.0 Self [id number] [facility] PI PI MEDICARE PI PI Medicare Dme Medigap Part B [id number] 2.16.840.1.702283.3.227.99 .936.7882.0 Self [id number] [facility] [facility] Part B [id number] 2.840.1.616003.3.227. 99.936.7882.0 Self [id number] Medicare Medicare Primary [id number] 2.16.840.1.003701.3.227.99.936 .7882.0 Self [id number] Medicare Medigap Part B [id number] 2.16840.1.178477.3.227.99.936.788 2.0 Self [id number] [facility] [facility] Part B [id number] 2.840.1.338839.3.227. 99.936.7882.0 Self [id number] Medicare Dme Medicare Primary [id number] 2.16.840.1.356967.3.227. 99.936.7882.0 Self [id number] Medicare Dme Medigap Part B [id number] 2.16840.1.641802.3.227.99 .936.7882.0 Self [id number] [employer] Insurance Medigap Part B [id number] 2.16840.1.818067.3.227. 99.936.7882.0 Self [id number] Medicare Medicare Primary [id number] 2.16.840.1.353509.3.227.99.936 .7882.0 Self [id number] 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 [employer] Medigap Part B [id number] 2.16.840.1.215479.3.227.99.572.2113.0 Self SE [id number] [employer] [facility] Options Medigap Part B [id number] 2.16840.1.278481.3.227.99.572.2113.0 Self [id number] Medicare (Part B) Medicare Primary [id number] 2.16.840.1.813546.3.227.99.572.2113.0 Self [id number] Medicare Dme Medigap Part B [id number] 2.160.1.736033.3.227.99 .936.7882.0 Self [id number] [employer] Medigap Part B [id number] 2.0.1.682572.3.227. 99.936.7882.0 Self [id number] Medicare Medicare Primary [id number] 2.16840.1.848391.3.227.99.936 .7882.0 Self [id number] Medicare Dme Medigap Part B [id number] 2.16840.1.328147.3.227.99 .936.7882.0 Self [id number] [employer] Medigap Part B [id number] 2.0.1.131422.3.227. 99.936.7882.0 Self [id number] Medicare Medicare Primary [id number] 2.16840.1.193928.3.227.99.936 .7882.0 Self [id number] Medicare Dme Medicare Primary [id number] Self [employer] Insurance Medigap Part B [id number] Self Medicare Medicare Primary [id number] Self [facility] [facility] Option [id number] 0 [id number] [employer] [facility] Options Medigap Part B [id number] Self Medicare (Part B) Medicare Primary [id number] Self [employer]ARP HE[employer] CARE OPTIONS [id number] SP [id number] [facility] [id number] S 3 [id number] [facility] O [id number] S 82 [id number] [facility] [employer] [facility] [employer] Commercial [id number] Self Problems, Conditions, and Diagnoses Code Display Name Description Problem Type Effective Dates Data Source(s) Z79.4 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 Diagnosis 01/15/2021 03:21:00 PM [facility] Z98.890 OTHER SPECIFIED POSTPROCEDURAL STATES OT HER SPECIFIED POSTPROCEDURAL STATES Diagnosis 01/15/2021 03:21:00 PM [facility] Z79.01 scaleman (current) use of anticoagulant s INDUSTRIAL MAINTENANCE REPAIRER (CURRENT) USE OF ANTICOAGULANTS Diagnosis 01/15/2021 03:21:00 PM [facility] Z79.82 alf (current) use of aspirin 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 Diagnosis 01/15/2021 03:21:00 PM [facility] Z82.49 Family history of ischemic h eart disease and other diseases of the circulatory system FAMILY HX OF ISCHEM HEART DIS AND OTH DIS OF THE C Diagnosis 01/15/2021 03:21:00 PM [facility] Z87.891 Personal history of nicotine dependence PERSONAL HISTORY OF NICOTINE DEPENDENCE Diagnosis 01/15/2021 03:21:00 PM [facility] Z90.49 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 ACQUIRED ABSENCE OF OTHER SPECIFIED PARTS OF DIGES Diagnosis 01/15/2021 03:21:0 0 PM [facility] Z86.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), and cerebral infarction without residual deficits PRSNL HX OF TIA (TIA), AND CEREB INFRC W /O RESID D Diagnosis 01/15/2021 03:21:00 PM [facility] Z98.84 Bariatric surgery status BARIATRIC SURGERY STATUS Diag nosis 01/15/2021 03:21:00 PM [facility] I77.1 Stricture of artery STRICTURE OF ARTERY Diagnosis 0 01/15/2021 03:21:00 PM [facility] G31.84 Mild cognitive impairment, so stated MIL D COGNITIVE IMPAIRMENT, SO STATED Diagnosis 01/15/2021 03:21:00 PM [facility] M62.830 Muscle spasm of back MUSCLE SPASM OF BACK Diagnosis 01/15/2021 03:21:00 PM [facility] M79.606 Pain in leg, unspecified PAIN IN LEG, UNSPECIFIED Diag nosis 01/15/2021 03:21:00 PM [facility] M1A.00X0 Idiopathic chronic gout, unspecified sit e, without tophus (tophi) IDIOPATHIC CHRONIC GOUT, UNSPECIFIED SITE, WITHOUT Diagnosis 03:21:00 PM [facility] E03.9 Hypothyroidism, unspecified HYPOTHYROIDISM, UNSPECIFIE D Diagnosis 01/15/2021 03:21:00 PM [facility] G47.33 Obstructive sleep apnea (adult) (pediatr ic) OBSTRUCTIVE SLEEP APNEA (ADULT) (PEDIATRIC) Diagnosis 01/15/2021 03:21:00 PM [facility] K21.9 Gastro-esophageal reflux disease without esophagitis GASTRO-ESOPHAGEAL REFLUX DISEASE WITHOUT ESOPHAGIT Diagnosis 01/15/2021 03:21:00 PM [facility] H40.9 Unspecified glaucoma UNSPECIFIED GLAUCOMA Diagnosis 01/15/2021 03:21:00 PM [facility] D50.8 Other iron deficiency anemias OTHER IRON DEFICIENCY AN EMIAS Diagnosis 01/15/2021 03:21:00 PM [facility] F32.9 Major depressive disorder, single episod e, unspecified MAJOR DEPRESSIVE DISORDER, SINGLE EPISODE, UNSPECI Diagnosis 01/15/2021 03:21:00 PM [facility] I25.2 Old myocardial infarction OLD MYOCARDIAL INFARCTION Di agnosis 01/15/2021 03:21:00 PM [facility] N18.30 CHRONIC KIDNEY DISEASE, STAGE 3 UNSPECIF IED CHRONIC KIDNEY DISEASE, STAGE 3 UNSPECIFIED Diagnosis 01/15/2021 03:21:00 PM [facility] I25.10 Atherosclerotic heart diseas e of [place] coronary artery without angina pectoris ATHSCL HEART DISEASE OF [place] CORONARY ARTERY W/O Diagnosis 01/15/2021 03:21:00 PM [facility] E78.5 Hyperlipidemia, unspecified HYPERLIPIDEMIA, UNSPECIFIE D Diagnosis 01/15/2021 03:21:00 PM [facility] E11.40 Type 2 diabetes mellitus with diabetic n europathy, unspecified TYPE 2 DIABETES MELLITUS WITH DIABETIC NEUROPATHY, Diagnosis 01/15/2021 03:21:00 PM [facility] J44.9 Chronic obstructive pulmonary disease, u nspecified CHRONIC OBSTRUCTIVE PULMONARY DISEASE, UNSPECIFIED Diagnosis 01/15/2021 03:21:00 PM EDT [facility] I48.0 Paroxysmal atrial fibrillation PAROXYSMAL ATRIAL FIBRI LLATION Diagnosis 01/15/2021 03:21:00 PM [facility] S31.000D Unspecified open wound of lo wer back and pelvis without penetration into retroperitoneum, subsequent encounter UNSP OPN WND LOW BACK AND PELV W/O PENET RETROPERI Diagnosis 01/15/2021 03:21:00 PM [facility] T81.31XD Disruption of external opera tion (surgical) wound, not elsewhere classified, subsequent encounter DISRUPTION OF EXTERNAL OPERATION (SURGIC AL) WOUND, Diagnosis 01/15/2021 03:21:00 PM [facility] R26.2 Difficulty in walking, not elsewhere cla ssified DIFFICULTY IN WALKING, NOT ELSEWHERE CLASSIFIED Diagnosis 01/15/2021 03:21:00 PM [facility]y R53.1 Weakness WEAKNESS Diagnosis 01/15/2021 03:21:00 PM [facility] J90 Pleural effusion, not elsewhere classifi ed PLEURAL EFFUSION, NOT ELSEWHERE CLASSIFIED Diagnosis 01/15/2021 03:21:00 PM [facility] I13.0 Hypertensive heart and chron ic kidney disease with heart failure and stage 1 through stage 4 chronic kidney disease, or unspecified chronic kidney disease HYP HRT CHR KDNY DIS W HRT FAIL AND STG 1-4/UNSP Diagnosis 01/15/2021 03:21:00 PM [facility] I50.32 Chronic diastolic (congestive) heart chacho lure CHRONIC DIASTOLIC (CONGESTIVE) HEART FAILURE Diagnosis 01/15/2021 03:21:00 PM [facility] J18.9 Pneumonia, unspecified organism PNEUMONIA, UNSPECIFIED ORGANISM Diagnosis 01/15/2021 03:21:00 PM [facility] R53.81 Other malaise OTHER MALAISE Diagnosis 01/15/2021 03:21:00 PM [facility] K55.1 Chronic vascular disorders of intestine Chronic vascular disorders of intestine Diagnosis 12/26/2020 03:12:00 PM EDT [facility] K55.9 Vascular disorder of intestine, unspecif ied Vascular disorder of intestine, unspecif Diagnosis 12/26/2020 03:12:00 PM EDT [facility] N18.31 Chronic kidney disease, stage 3a Chronic kidney disease, stage 3a Diagnosis 09/15/2020 10:06:00 AM EDT [facility] J18.9 Pneumonia, unspecified organism Pneumonia, unspecified organism Problem 03/07/2021 01:00:00 AM EDT [place] ([facility] ) [id number] Supraventricular premature beats Supraventricula r premature beats Problem 12/06/2020 12:00:00 AM EDT [facility] ([facility]) I49.1 Supraventricular premature beats Supraventricular yoan ature beats Problem 12/06/2020 12:00:00 AM EDT [facility] ([facility]) [id number] Mesenteric artery stenosis Mesenteric artery stenosis Problem 09/15/2020 12:00:00 AM EDT [facility] ([facility]) [id number] Hypertensive disorder Hypertensive disorder Problem 09/15/2020 12:00:00 AM EDT [facility] ([facility]) [id number] Diabetes mellitus Diabetes mellitus Problem 09/15/2020 12:00:00 AM EDT [facility] ([facility]) [id number] Coronary arteriosclerosis Coronary arteriosclerosis Pr oblem 09/15/2020 12:00:00 AM EDT [facility] ([facility]) Note: Overview: s/p CABG, Followed by Dr Bocanegra [id number] Chronic kidney disease stage 3 Chronic kidney disease stage 3 Problem 09/15/2020 12:00:00 AM EDT [facility] ([facility]) Note: Overview: followed by Dr Lira K55.1 Mesenteric artery stenosis Mesenteric artery stenosis [id number] 09/15/2020 12:00:00 AM EDT [facility] I10 Hypertension Hypertension [id number] 09/15/2020 12:00:00 A M EDT [facility] I25.10 CAD (coronary artery disease) CAD (coronary artery dis ease) [id number] 09/15/2020 12:00:00 AM EDT [facility] N18.30 CKD (chronic kidney disease), stage III CKD (chronic kidney disease), stage III [id number] 09/15/2020 12:00:00 AM EDT [facility] E11.9 Diabetes Diabetes [id number] 09/15/2020 12:00:00 AM ED T [facility] E10.621 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 Multiple complications due to type 1 diabetes mellitus Problem 06/22/19 12:00:00 AM EST [facility] ([facility] [id number] Pain in limb Pain in limb Problem 03/27/2020 12:0 0:00 AM EST - 06/22/2020 12:00:00 AM EST [facility] ([facility] Other synovitis and tenosynovitis, right ankle and foot Other synovitis and tenosynovitis, right ankle and foot Problem 03/27/2020 12:00:0 0 AM EST - 06/22/2020 12:00:00 AM EST [facility] ([facility] [id number] Excess skin of eyelid (finding) Dermatochalasis Both E yelids Finding 02/16/2020 03:08:00 PM EDT DC (Amaris [facility]) [id number] Excess skin of eyelid (finding) Dermatochalasis Both E yelids Finding 02/16/2020 03:08:00 PM EDT DC ([facility]) [id number] Dermatochalasis Both Eyes Dermatochalasis Both Eyes Fi nding 02/16/2020 03:08:00 PM EDT DC (Amaris [facility]) Surgeries/Procedures Procedure Description Date Indications Data Source(s) Introduction of Insulin into Subcutaneous Tissue, Percutaneo us Approach 01/15/2021 12:00:00 AM [facility] Muscle Performance Treatment of Musculoskeletal System - Who le Body 01/15/2021 12:00:00 AM [facility] SBSQ HOSPITAL CARE/DAY 25 MINUTES 12/31/2020 12:00:00 AM EDT [facility] ([facility]) Ileo Mesenteric Bypass 12/30/2020 12:00:00 AM EDT [facility] ([facility]) Ins Non-Tunneled Catheter 12/30/2020 12:00:00 AM EDT [facility] ([facility]) Arterial Catheterization Or Cannulation Percutaneous 12/30/2020 12:00:00 AM EDT [facility] ([facility]) INITIAL HOSPITAL CARE/DAY 50 MINUTES 12/30/2020 12:00: 00 AM EDT [facility] ([facility] 12/30/2020 12:00:00 AM EDT [facility] ([facility] 25 MINUTES 12/29/2020 12:00:00 AM EDT [facility] ([facility]) Duplex Scan Arterial Inflow/Venous Outflow LTD Abd/Pelv/Retr oper 12/26/2020 12:00:00 AM EDT [facility] ([facility]) OFFICE OUTPATIENT VISIT 25 MINUTES 12/26/2020 12:00:00 AM EDT [facility] ([facility]) OFFICE OUTPATIENT VISIT 15 MINUTES 12/20/2020 12:00:00 AM EDT [facility] ([facility], [facility]) OFFICE OUTPATIENT VISIT 15 MINUTES 12/20/2020 12:00:00 AM EDT [facility] ([facility], [facility]) OFFICE OUTPATIENT VISIT 15 MINUTES 12/14/2020 12:00:00 AM EDT [facility] ([facility], ) XTRNL ECG < 48 HR RECORDING 12/13/2020 12:00:00 AM EDT [facility] ([facility]) XTRNL ECG CONTINUOUS RHYTHM PHYS REVIEW&INTERPJ 2020 12:00:00 AM EDT [facility] ([facility]) OFFICE OUTPATIENT VISIT 15 MINUTES 12/08/2020 12:00:00 AM EDT [facility] ([facility], [facility]) DEBRIDEMENT NAIL ANY METHOD 6/> 12/08/2020 12:00:00 AM EDT [facility] ([facility] OFFICE OUTPATIENT VISIT 25 MINUTES 12/07/2020 12:00:00 AM EDT [facility] ([facility] ECG ROUTINE ECG W/LEAST 12 LDS W/I&R 12/06/2020 12:00: 00 AM EDT [facility] ([facility]) Arterial Pressure Waveform Analysis For Assessment Of Centra l Art 12/06/2020 12:00:00 AM EDT [facility]) OFFICE OUTPATIENT VISIT 25 MINUTES 12/06/2020 12:00:00 AM EDT [facility] ([facility]) INCISION & DRAINAGE ABSCESS SIMPLE/SINGLE 12/05/2020 1 2:00:00 AM EDT [facility] ([facility]) OFFICE OUTPATIENT VISIT 15 MINUTES 12/05/2020 12:00:00 AM EDT [facility] ([facility]) OFFICE OUTPATIENT VISIT 25 MINUTES 11/15/2020 12:00:00 AM EDT [facility] ([facility] ) Duplex Scan Arterial Inflow/Venous Outflow LTD Abd/Pelv/Retr oper 11/13/2020 12:00:00 AM EDT [facility] ([facility]) OFFICE OUTPATIENT VISIT 15 MINUTES 11/13/2020 12:00:00 AM EDT [facility] ([facility]) RADEX SPINE CRV COMPL W/OBLQ&FLEX&/XTN STDS 11/09/2020 12:00:00 AM EDT [facility] ([facility] ) RADEX SHOULDER COMPLETE MINIMUM 2 VIEWS 11/09/2020 12: 00:00 AM EDT [facility] ([facility] ) MRI SPINAL CANAL CERVICAL W/O CONTRAST MATRL 12:00:00 AM EDT [facility] ([facility], ) MRI SPINAL CANAL CERVICAL W/O CONTRAST MATRL 12:00:00 AM EDT [facility] ([facility], ) MRI Upper Extremity Joint 11/04/2020 12:00:00 AM EDT [facility] ([facility], ) MRI Upper Extremity Joint 11/04/2020 12:00:00 AM EDT [facility] ([facility], ) Needle electromyography, each extremity, with related paraspinal areas, when performed, done with nerve conduction, amplitude and latency/velocity study; complete, five or more muscles studied, innervated by three or more nerves or four or more spinal levels (list separately in addition to the code for primary procedure). 11/03/2020 12:00:00 AM EDT [facility] ([facility], ) Needle electromyography, each extremity, with related paraspinal areas, when performed, done with nerve conduction, amplitude and latency/velocity study; complete, five or more muscles studied, innervated by three or more nerves or four or more spinal levels (list separately in addition to the code for primary procedure). 11/03/2020 12:00:00 AM EDT [facility] ([facility], ) [address]23 Nerve conduction studies 13 or more studies NEW 201211/03/2020 12:00:00 AM EDT [facility] ([facility], ) Needle electromyography, each extremity, with related paraspinal areas, when performed, done with nerve conduction, amplitude and latency/velocity study; complete, five or more muscles studied, innervated by three or more nerves or four or more spinal levels (list separately in addition to the code for primary procedure). 11/01/2020 12:00:00 AM EDT [facility] ([facility], ) Needle electromyography, each extremity, with related paraspinal areas, when performed, done with nerve conduction, amplitude and latency/velocity study; complete, five or more muscles studied, innervated by three or more nerves or four or more spinal levels (list separately in addition to the code for primary procedure). 11/01/2020 12:00:00 AM EDT [facility] ([facility] ) [id number] Nerve conduction studies 13 or more studies NEW 201211/01/2020 12:00:00 AM EDT [facility] ([facility] ) OFFICE OUTPATIENT VISIT 15 MINUTES 10/18/2020 12:00:00 AM EDT [facility] ([facility]) OFFICE OUTPATIENT VISIT 10 MINUTES 10/05/2020 12:00:00 AM EDT [facility] ([facility] OFFICE OUTPATIENT VISIT 15 MINUTES 09/29/2020 12:00:00 AM EDT [facility] ([facility], [facility]) Intermediate Eye Exam Established Patient Intermediate Eye Exam Established Patient 09/21/2020 12:00:00 AM EDT DC (Leo Hancock MD [facility]) Intermediate Eye Exam Established Patient Intermediate Eye Exam Established Patient 09/21/2020 12:00:00 AM EDT [place] ([facility]o [facility]) PHYSICIAN TELEPHONE EVALUATION 11-20 MIN 09/19/2020 12 :00:00 AM EDT [facility] ([facility]) GLUC BLD GLUC MNTR DEV CLEARED FDA SPEC HOME USE <td>P OCT GLUCOSE</td><td>Routine</td><td>09/17/2020 8:57 AM EDT</td><td></td><td> </td> 09/17/2020 08:57:00 AM EDT [facility] GLUC BLD GLUC MNTR DEV CLEARED FDA SPEC HOME USE <td>P OCT GLUCOSE</td><td>Routine</td><td>09/17/2020 4:49 AM EDT</td><td></td><td> </td> 09/17/2020 04:49:00 AM EDT [facility] GLUC BLD GLUC MNTR DEV CLEARED FDA SPEC HOME USE <td>P OCT GLUCOSE</td><td>Routine</td><td>09/16/2020 10:57 PM EDT</td><td></td><td> </td> 09/16/2020 10:57:00 PM EDT [facility] GLUC BLD GLUC MNTR DEV CLEARED FDA SPEC HOME USE <td>P OCT GLUCOSE</td><td>Routine</td><td>09/16/2020 3:53 PM EDT</td><td></td><td> </td> 09/16/2020 03:53:00 PM EDT [facility] GLUC BLD GLUC MNTR DEV CLEARED FDA SPEC HOME USE <td>P OCT GLUCOSE</td><td>Routine</td><td>09/16/2020 3:12 PM EDT</td><td></td><td> </td> 09/16/2020 03:12:00 PM EDT [facility] GLUC BLD GLUC MNTR DEV CLEARED FDA SPEC HOME USE <td>P OCT GLUCOSE</td><td>Routine</td><td>09/16/2020 3:02 PM EDT</td><td></td><td> </td> 09/16/2020 03:02:00 PM EDT [facility] GLUC BLD GLUC MNTR DEV CLEARED FDA SPEC HOME USE <td>P OCT GLUCOSE</td><td>Routine</td><td>09/16/2020 2:53 PM EDT</td><td></td><td> </td> 09/16/2020 02:53:00 PM EDT [facility] GLUC BLD GLUC MNTR DEV CLEARED FDA SPEC HOME USE <td>P OCT GLUCOSE</td><td>Routine</td><td>09/16/2020 2:47 PM EDT</td><td></td><td> </td> 09/16/2020 02:47:00 PM EDT [facility] GLUC BLD GLUC MNTR DEV CLEARED FDA SPEC HOME USE <td>P OCT GLUCOSE</td><td>Routine</td><td>09/16/2020 8:19 AM EDT</td><td></td><td> </td> 09/16/2020 08:19:00 AM EDT [facility] BLOOD COUNT COMPLETE AUTOMATED <td>CBC</td><td>Routine </td><td>09/16/2020 6:33 AM EDT</td><td></td><td> </td> 09/16/2020 06:33:00 AM EDT [facility] BASIC METABOLIC PANEL CALCIUM TOTAL <td>BASIC METABOLI C PANEL</td><td>Routine</td><td>09/16/2020 6:33 AM EDT</td><td></td><td> </td> 09/16/2020 06:33:00 AM EDT [facility] GLUC BLD GLUC MNTR DEV CLEARED FDA SPEC HOME USE <td>P OCT GLUCOSE</td><td>Routine</td><td>09/15/2020 8:46 PM EDT</td><td></td><td> </td> 09/15/2020 08:46:00 PM EDT [facility] IR IS ARTERIOGRAM VISCERAL MESENTERIC <td>IR IS ARTERI OGRAM VISCERAL MESENTERIC</td><td>Routine</td><td>09/15/2020 2:52 PM EDT</td><td> Chronic vascular insufficiency of intestine</td><td> </td> 09/15/2020 02:52:05 PM EDT Chronic vascular insufficiency of intestine [facility] Chronic vascular insufficiency of intest ine Transcatheter Placement Intravascular Stent Initial Artery 09/15/2020 12:00:00 AM EDT [facility] ([facility]) Moderate Sedation Services; Same Phys Intl 15 Mins; PT >= 5 Years 09/15/2020 12:00:00 AM EDT [facility] ([facility]) Catheter Placement Arterial System 1St Order Abdom/Pelv/Low Extr 09/15/2020 12:00:00 AM EDT [facility] ([facility]) PROTHROMBIN TIME <td>PROTIME-INR</td><td>Rout ine</td><td>09/11/2020 12:15 PM EDT</td><td> Chronic vascular insufficiency of intestine</td><td> </td> 09/11/2020 04:15:00 PM EDT Chronic vascular insufficiency of intestine [facility] Chronic vascular insufficiency of intest ine BLOOD COUNT COMPLETE AUTOMATED <td>CBC</td><td>Routine </td><td>09/11/2020 12:15 PM EDT</td><td> Chronic vascular insufficiency of intestine</td><td> </td> 09/11/2020 04:15:00 PM EDT Chronic vascular insufficiency of intestine [facility] Chronic vascular insufficiency of intest ine HEMOGLOBIN GLYCOSYLATED A1C <td>HEMOGLOBIN A1C</td><td>Routine</td><td>09/11/2020 12:15 PM EDT</td><td> Chronic vascular insufficiency of intestine</td><td> </td> 09/11/2020 04:15:00 PM EDT Chronic vascular insufficiency of intestine [facility] Chronic vascular insufficiency of intest ine COMPREHENSIVE METABOLIC PANEL <td>COMPREHENSIVE METABO LIC PANEL</td><td>Routine</td><td>09/11/2020 12:15 PM EDT</td><td> Chronic vascular insufficiency of intestine</td><td> </td> 09/11/2020 04:15:00 PM EDT Chronic vascular insufficiency of intestine [facility] Chronic vascular insufficiency of intest ine OFFICE OUTPATIENT VISIT 25 MINUTES 08/31/2020 12:00:00 AM EDT [facility] ([facility] OFFICE OUTPATIENT VISIT 25 MINUTES 08/30/2020 12:00:00 AM EDT [facility] ([facility]) OFFICE OUTPATIENT VISIT 25 MINUTES 08/17/2020 12:00:00 AM EDT [facility] ([facility] OFFICE OUTPATIENT VISIT 25 MINUTES 07/27/2020 12:00:00 AM EST [facility] ([facility] OFFICE OUTPATIENT VISIT 25 MINUTES 07/04/2020 12:00:00 AM EST [facility] ([facility]) OFFICE OUTPATIENT VISIT 10 MINUTES 06/27/2020 12:00:00 AM EST [facility] OFFICE OUTPATIENT VISIT 15 MINUTES 06/26/2020 12:00:00 AM EST [facility] ([facility], ) OFFICE OUTPATIENT VISIT 15 MINUTES 06/15/2020 12:00:00 AM EST [facility] ([facility] ECG ROUTINE ECG W/LEAST 12 LDS W/I&R 06/09/2020 12:00: 00 AM EST [facility] ([facility]) Arterial Pressure Waveform Analysis For Assessment Of Centra l Art 06/09/2020 12:00:00 AM EST [facility] ([facility]) OFFICE OUTPATIENT VISIT 25 MINUTES 06/09/2020 12:00:00 AM EST [facility] ([facility]) DEBRIDEMENT NAIL ANY METHOD 06/02/2020 12:00:00 AM EST [facility] ([facility] Endoscopy Upper GI Complex Diagnostic 04/06/2020 12:00 :00 AM EST [facility] ([facility]) DUPLEX SCAN EXTRACRANIAL ART COMPL BI STUDY 03/28/2020 12:00:00 AM EST [facility] ([facility]) INJECTION 1 TENDON SHEATH/LIGAMENT APONEUROSIS 020 12:00:00 AM EDT [facility] ([facility] DEBRIDEMENT NAIL ANY METHOD 03/02/2020 12:00:00 AM EDT [facility] ([facility] Comprehensive eye exam established patient (Signi/Sep Eval. & Man.) Comprehensive eye exam established patient (Signi/Sep Eval. & Man.) 02/16/2020 12:00:00 AM EDT DC (Amaris Hancock [facility]) Scodi, optic nerve with interpretation a nd report (WAIVER OF LIABILITY ON FILE (ABN)) Scodi, optic nerve with interpretation a nd report (WAIVER OF LIABILITY ON FILE (ABN)) 02/16/2020 12:00:00 AM EDT DC (Leo Hancock MD [facility]) COMPUTERIZED OPHTHALMIC IMAGING OPTIC NERVE Scodi, opt ic nerve with interpretation and report (GA) 02/16/2020 12:00:00 AM EDT [facility] ([facility]) Comprehensive eye exam established patient (25) Nue hensive eye exam established patient (25) 02/16/2020 12:00:00 AM EDT DC (Amaris H[facility]) Results ID Date Data Source [id number] 03/15/2021 10:48:00 PM EDT [facility] Progress Note GeneralEncounter:Chart re viewed. Patient interviewed and examined. Labs, medications and orders viewed by me. SubjectiveGeneral Condition:Patient is to be discharged home with a hospital bed, rolling walker, and a commode. The reasons for this equipment are the following. The patient has medical condition which requires positioning of the body weight is not feasible within ordinary bed. She will need use of the rails. This will prevent skin breakdown. Also the patient has peripheral neuropathy and she is a severe vasculopath. Patient has a history of frequent falls with ambulatory dysfunction. Patient will need the head of bed elevated to 30 as she has a history of diabetes with congestive heart failure. She also has a history of COPD. Patient has limited ambulation. There is no bathroom facilities on the first level was she will be living. The above additional home care equipment will help her function at her home. Assessment/PlanAllergiesCoded Allergies:captopril (01/15/21) Problem List 1. Anemia 2. Ambulatory dysfunction 3. Debility, unspecified 4. History of falling 5. Abdominal wound dehiscence 6. Sacral wound 7. Paroxysmal atrial fibrillation 8. Diastolic CHF 9. COPD (chronic obstructive pulmonary disease) 10. Type 2 diabetes mellitus 11. Hypertension 12. Hyperlipidemia 13. Chronic kidney disease (CKD) 14. Severe protein-calorie malnutrition 15. Mesenteric artery stenosis 16. GERD (gastroesophageal reflux disease) 17. Hypothyroidism 18. Depression 19. Glaucoma 20. Gout 21. Leg pain Name Value Range Interpretation Code Description Data Haylee rce(s) Supporting Document(s) ID Date Data Source [id number] 03/15/2021 10:42:00 PM EDT [facility] Discharge Appointments AppointmentsOthe r Follow up with:Vascular: Dr. Nieves on 04 02 at 9:00 in the morningGastrologist: on 03/15/21 at 1 PMPCP: Dr. Goodwin on 04/10 at 11:15 in the morningNephrology: Dr. Lira on 03/26 at 1:40 PMNeurology: Dr. Aguila to be scheduledCardiology: Dr. Bocanegra to be scheduled Priority Items:Patient with her primary tenderness. Medicaid is in progress.Health care group by [facility]. Nursing with PT OT. Dressing changes,AideDisposable medical equipment: Rolling walker, commode, hospital bed ordered. Patient will get her own shower chair. The last item covered by insurance. Diagnosis & Medication Allergy Information Coded Allergies:captopril (01/15/21) DiagnosisProblem ListMedical Problems Abdominal wound dehiscence Abnormal CBC Ambulatory dysfunction Anemia Anemia due to gastrointestinal blood loss Cellulitis of right arm Chronic anemia (Chronic, Unknown) Chronic kidney disease (CKD) (Chronic, Unknown) Constipation COPD (chronic obstructive pulmonary disease) (Chronic, Unknown) Coronary artery disease (Chronic, Unknown) Debility, unspecified Depression (Chronic, Unknown) Diastolic CHF (Chronic) Edema of both lower extremities Elevated alkaline phosphatase level Gastrointestinal bleed GERD (gastroesophageal reflux disease) (Chronic, Unknown) Glaucoma (Chronic, Unknown) Gout (Chronic, Unknown) H/O TIA (transient ischemic attack) and stroke History of falling History of GA (myocardial infarction) (Chronic, Unknown) Hyperchloremia Hyperlipidemia (Chronic, Unknown) Hypertension (Chronic, Unknown) Hypokalemia Hypomagnesemia Hyponatremia Hypothyroidism (Chronic, Unknown) Leg pain (Chronic, Unknown) Leukocytosis Mesenteric artery stenosis Mild cognitive impairment (Chronic, Unknown) Normocytic anemia Paroxysmal atrial fibrillation (Chronic) Phlebitis of superficial vein of upper extremity Pleural effusion Prerenal azotemia Sacral wound Severe protein-calorie malnutrition Sleep apnea (Chronic, Unknown) Thrombocytosis Type 2 diabetes mellitus (Chronic) Type 2 diabetes mellitus with hyperglycemia UTI (urinary tract infection)Surgical Problems H/O elbow surgery H/O gastric bypass H/O lumbosacral spine surgery H/O ventral hernia repair History of bowel resection History of cardiac cath History of cholecystectomy History of coronary artery bypass graft History of left-sided carotid endarterectomy S/P ablation of atrial fibrillation Your Medications*Stop taking the following medications:Amlodipine Besylate* (Norvasc*) 5 MG TABLET 10 MILLIGRAM ORAL Daily Doxycycline Hyclate (Doxycycline Hyclate) 100 MG TABLET 100 MILLIGRAM ORAL Twice Daily Hydralazine HCl* (Hydralazine HCl*) 25 MG TABLET 25 MILLIGRAM ORAL 3 Times Daily Potassium Chloride (Potassium Chloride) 20 MEQ TABLET.ER 40 MILLIEQUIVALENT ORAL Daily Rivaroxaban* (Xarelto*) 15 MG TABLET 15 MILLIGRAM ORAL Daily Sodium Hypochlorite (Dakin's) 473 ML SOLUTION 473 MILLILITER TOPICAL Twice Daily Calcium Citrate (Calcium Citrate) 200 MG TABLET 200 MILL IGRAM ORAL Twice Daily Isradipine (Isradipine) 2.5 MG CAPSULE 2.5 MILLIGRAM ORAL Twice Daily Vitamin B Complex (B Complex) 1 EACH TABLET 1 EACH ORAL Daily Continue taking these medications:Insulin Glargine, Recombinan* (Lantus*) 100 UNIT/1 ML VIAL 6 Unit SUBCUTANEOUSLY Twice Daily Tizanidine HCl (Zanaflex) 2 MG CAPSULE 2 MILLIGRAM ORAL Twice Daily as needed for PAIN/SPASMS Allopurinol* (Allopurinol*) 100 MG TABLET 100 MILLIGRAM ORAL Daily Aspirin* (Aspirin EC*) 81 MG/ECT ECT 81 MILLIGRAM ORAL Twice Daily Atorvastatin Calcium* (Lipitor*) 10 MG TABLET 10 MILLIGRAM ORAL At Bedtime Brimonidine Tartrate (Alphagan P) 5 ML DROPS 10 MILLILITER OPHTHALMIC Twice Daily Multivitamin (Multivitamin) 1 EACH TABLET 1 EACH ORAL Daily Clopidogrel Bisulfate* (Plavix*) 75 MG TABLET 75 MILLIGRAM ORAL Daily Duloxetine HCl* (Cymbalta*) 30 MG CAPSULE.DR 60 MILLIGRAM ORAL At Bedtime Esomeprazole Magnesium (Nexium) 40 MG CAPSULE.DR 40 MILLIGRAM ORAL Twice Daily Furosemide* (Lasix*) 20 MG TABLET 20 MILLIGRAM ORAL Twice Daily Gabapentin (Gabapentin) 400 MG CAPSULE 400 MILLIGRAM ORAL 3 Times Daily Ferrous Gluconate (Ferrous Gluconate) 324 MG TABLET 324 MILLIGRAM ORAL Daily Levothyroxine Sodium (Levothyroxine) 50 MCG CAPSULE 50 MICROGRAM ORAL Daily Memantine HCl (Memantine HCl) 10 MG TABLET 10 MILLIGRAM ORAL Twice Daily Metoprolol Succinate (Toprol XL) 25 MG TAB.ER.24H 25 MILLIGRAM ORAL Daily Nitroglycerin (Nitroglycerin) 0.4 MG TAB.SUBL 0.4 MILLIGRAM SUBLINGUAL Q5MIN as needed for CHEST PAIN Insulin Aspart (Insulin Aspart) 100 UNIT/1 ML VIAL 100 UNIT SUBCU TANEOUSLY 3 Times Daily Cyanocobalamin (Vitamin B-12) (Vitamin B12) 2,500 MCG TABLET 1,000 MICROGRAM ORAL Daily Latanoprost* (Xalatan*) 0.005 % BTL 1 DROP EACH EYE At Bedtime Start taking the following new medications:Aspirin* (Aspirin EC*) 81 MG/ECT ECT 81 MILLIGRAM ORAL Daily Qty = 30 No Refills Acetaminophen (Acetaminophen) 325 MG TABLET 650 MILLIGRAM ORAL Every 6 Hrs as needed for FEVER Qty = 30 No Refills Potassium Chloride (Klor-Con M10) 10 MEQ TAB.ER.PRT 10 MILLIEQUIVALENT ORAL Daily Qty = 30 No Refills Calcium Carbonate (Calcium Carbonate) 200 MG TAB.CHEW 1,000 MILLIGRAM ORAL Every 6 Hrs as needed for INDIGESTION Qty = 10 No Refills Magnesium Oxide* (Magnesium Oxide*) 400 MG TABLET 400 MILLIGRAM ORAL Daily Qty = 30 No Refills Docusate Sodium (Docusate Sodium) 100 MG CAPSULE 100 MILLIGRAM ORAL Twice Daily Qty = 14 No Refills Comments: stop if you have loose bowel movements Sucralfate* (Sucralfate*) 1 GM/10 ML ORAL.SUSP 1 GRAM ORAL Before Meals & Bedtime Qty = 60 No Refills The following medications have been changed:Old:Acetaminophen (Tylenol) 325 MG TABLET 650 MILLIGRAM ORAL Every 4 hrs as needed for PAIN New:Acetaminophen (Tylenol) 325 MG TABLET 650 MILLIGRAM ORAL Every 6 Hrs as needed for FEVER not to exceed 4 per day Qty = 60 Medical Equipment Prescribed Hospital Bed, Galdino Parrish Discharge Instructions Diet:- Continue Regular Diet (diabetic, 2 g sodium diet) Activity:- Return to usual activity (increase activity with PT)Finger Stick Glucose: Before meals & at bedtime (consult your primary doctor)Weight Monitoring:Discharge Weight 129lb 10.11oz Weigh yourself every [7] day(s)Call your primary care physician if you gain or lose more than [] pounds. HOME SERVICESHome Services Ordered: Home Health Aid, Visiting Nurse Additional Instructions CALL OR RETURN TO THE ED IF:If you have questions or issues after discharge, but are unable to contact your Primary Care Physician, you should: * Call 911 or come to the Emergency department.* If possible, always bring your medication list and any new medications to yourmedical appointments or visits to the Emergency Department or clinics. If you develop any fo the following issues, either call your primary care physician immediately, or seek medical attention (i.e. come to the Emergency Department):* Chest Pain* Fever* Severe vomiting or diarrhea* Worsening fever* Shortness of Breath or Wheezing* Wound drainage of Bleeding* Signs of stroke: sudden numbness or weakness of the face, arm or leg sudden trouble seeing in one or both eyes sudden trouble walking* Frequent Falls Review & Sign* I understand the instructions I have received: Patient/Family Signature: Date/Time OrderingProvider Signature: Date/Time Discharging Nurse Signature: Date/Time AssessmentAssessmentT his is a 70-year-old female who initially came to [facility] for rehabilitation. Patient is a vasculopath. Patient had blockage of her abdominal vasculature. She had resection of bowel. Postoperatively she developed Tahitian of the incision. This is almost closed. Patient was also physically debilitated. Patient has markedly improved in her abilities.Patient discharged home with services. Patient will have multiple follow-ups with Elizabeth.Abigail stable for discharge. Name Value Range Interpretation Code Description Data Haylee rce(s) Supporting Document(s) ID Date Data Source [id number] 03/15/2021 10:41:00 PM EDT [facility] Summary of HospitalizationReason [facility]Hospital CourseDate of admission: 01/15/21 Date of discharge: 03/14/21 This is a 70-year-old white female with the following history. She had a recent and rather complicated admission at [facility] in [place] resulting in a 25 day hospital stay d/t mesenteric ischemia resulting in ex lap and small bowel resection, healthcare associated pneumonia likey VAP from being intubated and on ventilator, abdominal wound dehisence and wound infection with Klebsiella and finishing 7 more days of po Doxycyline. Prior to d/c she had a mechanical fall sustaining an area of contusion/ecchymosis of the left eye with negative head and orbital CT. Additionally she has a sacral pressure sore that was present on admission. She was otherwise felt today to be medically optimized by her treating team in [place] and cleared for subacute rehab and she was agreeable to come to [facility] to complete her rehabitation. Patient was placed at the hospital for debility, ambulatory dysfunction, abdominal wall adhesion, sacral wound. Summary of patient's time at [facility]:01/22/21 patient noted on x-ray to have persistent bilateral pleural effusions right greater than left with patchy right basilar pneumonia greater right than left. Agents had completed her run of antibiotics at that time.Patient was on CPAP at home but has not used it during her time here hospital.Patient should develop fever on 01/31/21. Patient started on ceftriaxone IV.01/31/21: Patient dropped her hemoglobin and hematocrit. Hemoglobin dropped to 7.8. She is provided for occ ult blood and she was given 1 unit of packed RBCs and Carafate. Her antiplatelet Xarelto was DC'd. This is also given for her paroxysmal atrial fibrillation.02/03/21: Patient again dropped her hemoglobin. She was given 2 units of packed RBCs. She was started on a Protonix drip. vascular surgery informed. Unable to transfer patient. They would be a need for GI and surgical consult. It is noted that the abdomen and pelvis CT was unremarkable. Patient did not have any bloody or tarry stools. Initially the aspirin, Plavix, Xarelto was placed on hold. Aspirin and Plavix was restarted at a later date. It was noted that the patient had a history of gastric bypass which placed her at a higher risk for marginal ulcer.After 24-48 hours patient was taken off her protonic strip and placed on a PPI. At that time no further GI bleeding was noted.H&H was stable.9/13/21: Patient urinary tract infection resolved. Rocephin was DC'd.02/11/21: Patient received physical therapy. Using a walker. Increased frequency of ambulation. Patient's recovery was slow with minor setbacks.02/15/21: Negative study for DVT thrombus in the right lower extremity02/21/21: Hypokalemia resolved. Was low-normal. Patient was placed on [id number] mEq daily. Also her magnesium level was low. She was placed on mag oxide 400 mg by mouth daily. Patient initially was on DuoNeb's. At time of discharge is that needing them anymore. Patient was scheduled to see neurology or neurosurgery and about her neck. She was having numbness in the upper extremities. She feels she was told she had a herniated disc. Because of her admission to the hospital she did not make the appointment. At the time of discharge, patient was ambulating in the hallway 8 times around the nurses station using a walker. She was still noted to be dropping things from her hands. She completed her rehabilitation at [facility]. She was tocontinue this at home.She is follow-up with all of her various providers. Past medical history: Abdominal wound dehiscence Ambulatory dysfunction Chronic anemia (Chronic, Unknown) Chronic kidney disease (CKD) (Chronic, Unknown) COPD (chronic obstructive pulmonary disease) (Chronic, Unknown) Coronary artery disease (Chronic, Unknown) Debility, unspecified Depression (Chronic, Unknown) Diastolic CHF (Chronic) GERD (gastroesophageal reflux disease) (Chronic, Unknown) Glaucoma (Chronic, Unknown) Gout (Chronic, Unknown) H/O TIA (transient ischemic attack) and stroke History of GA (myocardial infarction) (Chronic, Unknown) Hyperlipidemia (Chronic, Unknown) Hypertension (Chronic, Unknown) Hypothyroidism (Chronic, Unknown) Leg pain (Chronic, Unknown) Mesenteric artery stenosis Mild cognitive impairment (Chronic, Unknown) Paroxysmal atrial fibrillation (Chronic) Sacral wound Sleep apnea (Chronic, Unknown) Type 2 diabetes mellitus (Chronic) Surgical Problems H/O elbow surgery H/O gastric bypass H/O lumbosacral spine victor hugo pablo H/O ventral hernia repair History of cardiac cath History of cholecystectomy History of left-sided carotid endarterectomy, left EIA to SMA 12/30/20 S/P ablation of atrial fibrillation AllergiesCoded Allergies:captopril (01/15/21) Family history Father, unkown history, mother: h/o heart disease Social History quit smoking, no alcohol use, no recreational drug use Review of systems:A 10 point review of system is as stated in the discharge summary and below.Prior to the patient's fall she was scheduled for neurosurgery to evaluate her for pinched nerve in the neck. Signs dropping th ings more frequently complainedof pain across her back radiating to the upper extremities. They will go to thearms and sometimes to both of the hands. Diagnoses (Current Visit)Problem List 1. History of bowel resection 2. Abdominal wound dehiscence 3. Mesenteric artery stenosis 4. Debility, unspecified 5. Ambulatory dysfunction 6. Mild cognitive impairment 7. History of falling 8. Anemia due to gastrointestinal blood loss 9. UTI (urinary tract infection) 10. Edema of both lower extremities 11. Hyponatremia 12. Hypokalemia 13. Hypomagnesemia 14. Sacral wound 15. Pleural effusion 16. Prerenal azotemia 17. Abnormal CBC 18. Elevated alkaline phosphatase level 19. Severe protein-calorie malnutrition 20. Gastrointestinal bleed Diagnoses (Other)Past Pertinent History 1. History of bowel resection 2. Anemia 3. COPD (chronic obstructive pulmonary disease) 4. Type 2 diabetes mellitus 5. Hypertension 6. Hyperlipidemia 7. Coronary artery disease 8. Chronic kidney disease (CKD) 9. Depression 10. Chronic anemia 11. Glaucoma 12. GERD (gastroesophageal reflux disease) 13. Abdominal wound dehiscence 14. Diastolic CHF 15. Paroxysmal atrial fibrillation 16. History of GA (myocardial infarction) 17. Sleep apnea 18. H/O TIA (transient ischemic attack) and stroke 19. Hypothyroidism 20. Gout 21. Leg pain 22. Mild cognitive impairment 23. Pleural effusion 24. Prerenal azotemia 25. Leukocytosis 26. Normocytic anemia 27. Thrombocytosis 28. Type 2 diabetes mellitus with hyperglycemia 29. Cellulitis of right arm 30. Phlebitis of superficial vein of upper extremity 31. Edema of both lower extremities 32. Hyperchloremia 33. Constipation 34. History of left-sided carotid endarterectomy 35. S/P ablation of atrial fibrillation 36. History of cardiac cath 37. History of cholecystectomy 38. H/O elbow surgery 39. H/O ventral hernia repair 40. H/O lumbosacral spine surgery 41. H/O gastric bypass 42. History of coronary artery bypass graft Patient's Discharge ConditionVital SignsVital Signs Date Time Temp Pulse Resp B/P B/P Pulse O2 O2 Flow FiO2 Mean Ox Delivery Rate 03/13 0752 98.7 59 18 146/46 97 03/14/21 vital signs: Temperature 98.7, pulse 59, respiration 18, BP 159/53, pulse ox on room air 99% Patient is stable for discharge. Patient has completed her physical therapy as of this time and will continue at home. Patient on multiple outpatient visits with her multiple doctors. The most pertinent 1 in the beginning should be her GI doctor. Patient's Discharge ConditionDischarge date 03/14/21Discharge condition stableDischarge Disposition Patient to be [facility]. Patient also to get from [facility]'s home. The following, hospital bed, rolling walker, commode. Patient's sister to secure a t shower chair. Physical ExaminationOther:General: Patient is alert and oriented 3. No acute distress.HEENT: Normocephalic. PERRLA. EOMs intact. Arcus stenosis noted. Corrective lenses noted. Partial upper plate. Remaining teeth are in. Good condition.Lungs: Kyphosis with slight scoliosis. Clear.Heart: Rate controlled. Occasional skipped noted. No murmur.Abdomen: 1/4 bowel sounds. No rebound guarding or tenderness. deferredBreast: DeferredExtremities: There is edema in the lower extremities. 1+ right greater than left. (Yesterday at the end of the afternoon the following was noted: Distal two thirds of the right tib-fib distally and distal one third of the left tib-fib distally. TD mucus 2+ nonpitting thickening noted on the right.)Vascular: Radial pulse 1+ on the right. One on the left. The cells pedis pulses difficult to palpate. (It is noted that the donor site for bypass surgery was the right lower extremity and decision swollen since the surgery.) Neuro: No sensory or motor deficits. DTRs are 2+ in the upper 3+ lower extremity.Integument: The sacral lesion has healed. The upper abdominal incisional drainage site has healed. There is minimal drainage on the lower aspect of the midline abdominal surgical site slightly greenish in nature. There is no gross signs of infection. Patient/Family InstructionsPrescriptionsStop taking the following medications:Amlodipine Besylate* (Norvasc*) 5 MG TABLET 10 MILLIGRAM ORAL Daily Doxycycline Hyclate (Doxycycline Hyclate) 100 MG TABLET 100 MILLIGRAM ORAL Twice Daily Hydralazine HCl* (Hydralazine HCl*) 25 MG TABLET 25 MILLIGRAM ORAL 3 Times Daily Potassium Chloride (Potassium Chloride) 20 MEQ TABLET.ER 40 MILLIEQUIVALENT ORAL Daily Rivaroxaban* (Xarelto*) 15 MG TABLET 15 MILLIGRAM ORAL Daily Sodium Hypochlorite (Dakin's) 473 ML SOLUTION 473 MILLILITER TOPICAL Twice Daily Calcium Citrate (Calcium Citrate) 200 MG TABLET 200 MILLIGRAM ORAL Twice Daily Isradipine (Isradipine) 2.5 MG CAPSULE 2.5 MILLIGRAM ORAL Twice Daily Vitamin B Complex (B Complex) 1 EACH TABLET 1 EACH ORAL Daily Continue taking these medications:Insulin Glargine, Recombinan* (Lantus*) 100 UNIT/1 ML VIAL 6 Unit SUBCUTANEOUSLY Twice Daily Tizanidine HCl (Zanaflex) 2 MG CAPSULE 2 MILLIGRAM ORAL Twice Daily as needed for PAIN/SPASMS Allopurinol* (Allopurinol*) 100 MG TABLET 100 MILLIGRAM ORAL Daily Aspirin* (Aspirin EC*) 81 MG/ECT ECT 81 MILLIGRAM ORAL Twice Daily Atorvastatin Calcium* (Lipitor*) 10 MG TABLET 10 MILLIGRAM ORAL At Bedtime Brimonidine Tartrate (Alphagan P) 5 ML DROPS 10 MILLILITER OPHTHALMIC Twice Daily Multivitamin (Multivitamin) 1 EACH TABLET 1 EACH ORAL Daily Clopidogrel Bisulfate* (Plavix*) 75 MG TABLET 75 MILLIGRAM ORAL Daily Duloxetine HCl* (Cymbalta*) 30 MG CAPSULE.DR 60 MILLIGRAM ORAL At Bedtime Esomeprazole Magnesium (Nexium) 40 MG CAPSULE.DR 40 MILLIGRAM ORAL Twice Daily Furosemide* (Lasix*) 20 MG TABLET 20 MILLIGRAM ORAL Twice Daily Gabapentin (Gabapentin) 400 MG CAPSULE 400 MILLIGRAM ORAL 3 Times Daily Ferrous Gluconate (Ferrous Gluconate) 324 MG TABLET 324 MILLIGRAM ORAL Daily Levothyroxine Sodium (Levothyroxine) 50 MCG CAPSULE 50 MICROGRAM ORAL Daily Memantine HCl (Memantine HCl) 10 MG TABLET 10 MILLIGRAM ORAL Twice Daily Metoprolol Succinate (Toprol XL) 25 MG TAB.ER.24H 25 MILLIGRAM ORAL Daily Nitroglycerin (Nitroglycerin) 0.4 MG TAB.SUBL 0.4 MILLIGRAM SUBLINGUAL Q5MIN as needed for CHEST PAIN Insulin Aspart (Insulin Aspart) 100 UNIT/1 ML VIAL 100 UNIT SUBCUTANEOUSLY 3 Times Daily Cyanocobalamin (Vitamin B-12) (Vitamin B12) 2,500 MCG TABLET 1,000 MICROGRAM ORAL Daily Latanoprost* (Xalatan*) 0.005 % BTL 1 DROP EACH EYE At Bedtime Start taking the following new medications:Aspirin* (Aspirin EC*) 81 MG/ECT ECT 81 MILLIGRAM ORAL Daily Qty = 30 No Refills Acetaminophen (Acetaminophen) 325 MG TABLET 650 MILLIGRAM ORAL Every 6 Hrs as needed for FEVER Qty = 30 No Refills Potassium Chloride (Klor-Con M10) 10 MEQ TAB.ER.PRT 10 MILLIEQUIVALENT ORAL Daily Qty = 30 No Refills Calcium Carbonate (Calcium Carbonate) 200 MG TAB.CHEW 1,000 MILLIGRAM ORAL Every 6 Hrs as needed for INDIGESTION Qty = 10 No Refills Magnesium Oxide* (Magnesium Oxide*) 400 MG TABLET 400 MILLIGRAM ORAL Daily Qty = 30 No Refills Docusate Sodium (Docusate Sodium) 100 MG CAPSULE 100 MILLIGRAM ORAL Twice Daily Qty = 14 No Refills Comments: stop if you have loose bowel movements Sucralfate* (Sucralfate*) 1 GM/10 ML ORAL.SUSP 1 GRAM ORAL Before Meals & Bedtime Qty = 60 No Refills The following medications have been changed:Old:Acetaminophen (Tylenol) 325 MG TABLET 650 MILLIGRAM ORAL Every 4 hrs as needed for PAIN New:Acetaminophen (Tylenol) 325 MG TABLET 650 MILLIGRAM ORAL Every 6 Hrs as needed for FEVER not to exceed 4 per day Qty = 60 Activity: Return to usual activity (increase activity with PT)Diet: Continue Regular Diet (diabetic, 2 g sodium diet)Appointments Other Follow up with:Vascular: Dr. Nieves on 04 02 at 9:00 in the morning Gastrologist: on 03/15/21 at [address]: [address] Goodwin on 04/10 at 11:15 in the morning Nephrology: Dr. Lira on 03/26 at 1:40 PM Neurology: Dr. Aguila to be scheduled Cardiology: Dr. Bocanegra to be scheduled Priority Items:Patient with her primary tenderness. Medicaid is in progress. Health care group by [facility]. Nursing with PT OT. Dressing changes,Aide Disposable medical equipment: Rolling walker, commode, hospital bed ordered. Patient will get her own shower chair. The last item covered by insurance.Additional NotesPatient did not use DuoNeb's for several days prior to discharge. Patient was not discharged home on same med.Time spent by provider to complete discharge > 30 minutesCopies toFamily Provider: Dr. Robinson Goodwin Name Value Range Interpretation Code Description Data Haylee rce(s) Supporting Document(s) ID Date Data Source [id number] 03/12/2021 07:17:00 AM EDT [facility] l Name Value Range Interpretation Code Description Data Haylee rce(s) Supporting Document(s) GLUCOSE 136 mg/dL 74-[address] [facility] BLOOD UREA NITROGEN 54 mg/dL 7-18 H [facility] CREATININE 1.66 mg/dl 0.55-1.[address] [facility] SODIUM 143 mmol/L 136-[address] [facility] POTASSIUM 3.8 mmol/L 3.5-5.[address] [facility] CHLORIDE 109 mmol/L 98-[address] [facility] CO2 23 mmol/L 21-[address] [facility] CALCIUM 8.0 mg/dL 8.5-10.[address] [facility] ANION GAP 11.0 mmol/L 5-[address] [facility] GLOMERULAR FILTRATION RATE 31 mL/min [facility] GFR IS CALCULATED IN mL/min/1.73m2 TRACY L FUNCTION: >90MILDLY DECREASED: 60-89MILDY TO MODERATELY DECREASED: 45-59 MODERATELY TO SEVERELY DECREASED: 30-44SEVERELY DECREASED: 15-29RENAL FAILURE: <15 AST 9 U/L 15-[address] [facility] ALT 20 U/L 14-[address] [facility] ALKALINE PHOSPHATASE 99 U/L 46-116 [facility] pital TOTAL BILIRUBIN 0.2 mg/dL 0.2-1.[address] [facility] TOTAL PROTEIN 5.5 g/dL 6.4-8.[address] [facility] ALBUMIN 2.3 gm/dL 3.4-5.[address] [facility] ID Date Data Source [id number] 03/12/2021 06:54:00 AM EDT [facility] l Name Value Range Interpretation Code Description Data Haylee rce(s) Supporting Document(s) WHITE BLOOD COUNT 7.9 K/mm3 4.0-10.0 [facility] RED BLOOD COUNT 2.68 M/mm3 4.00-5.50 L [facility] HEMOGLOBIN 7.9 gm/dL 12.0-16.[address] [facility] HEMATOCRIT 24.8 % 36.0-48.[address] [facility] MEAN CELL VOLUME 92.5 fl 80-96 [facility] MEAN CORPUSCULAR HEMOGLOBIN 29.5 pg 27.0-31.0 [facility] MEAN CORPUSCULAR HGB CONC 31.9 g/dl 32.0-36.0 L [facility] RED CELL DISTRIBUTION WIDTH 16.7 % 10.0-14.5 H [facility] PLATELET COUNT 330 K/mm3 172-[address] [facility] MEAN PLATELET VOLUME 11.9 fl 9.0-13.0 [facility] pital GRAN % 63.5 % 50-80.[address] [facility] IG% 0.3 % 0.0-0.[address] [facility] LYMPH % 22.7 % 25.0-50.[address] [facility] MONO % 7.9 % 2.0-10.[address] [facility] EOS % 4.8 % 0-5.[address] [facility] BASO % 0.8 % 0.0-2.[address] [facility] GRAN # 5.0 K/mm3 2.0-8.[address] [facility] IG# 0.0 K/mm3 0.0-0.[address] [facility] LYMPH # 1.8 K/mm3 1.0-5.[address] [facility] MONO # 0.6 K/mm3 0.10-1.[address] [facility] EOS # 0.4 K/mm3 0.0-0.[address] [facility] BASO # 0.1 K/mm3 0.0-0.[address] [facility] ID Date Data Source [id number] 03/10/2021 02:55:00 PM EDT [facility] In-Patient NoteNote:Laboratory Tests 03/09 03/09 0640 6440 Chemistry Sodium (136 - 145 mmol/L) 145 Potassium (3.5 - 5.1 mmol/L) 4.1 Chloride (98 - 107 mmol/L) 108 H Carbon Dioxide (21 - 32 mmol/L) 25 Anion Gap (5 - 12 mmol/L) 12.0 BUN (7 - 18 mg/dL) 53 H Creatinine (0.55 - 1.02 mg/dl) 1.57 H Estimated GFR (MDRD) (mL/min) 33 Glucose (74 - 106 mg/dL) 120 H Calcium (8.5 - 10.1 mg/dL) 8.7 Total Bilirubin (0.2 - 1.0 mg/dL) 0.3 AST (15 - 37 U/L) 16 Name Value Range Interpretation Code Description Data Haylee rce(s) Supporting Document(s) ID Date Data Source [id number] 03/10/2021 02:54:00 PM EDT [facility] l Progress Note GeneralEncounter:Chart re viewed. Patient interviewed and examined. Labs, medications and orders viewed by me. SubjectiveGeneral Condition:Mrs Yip is improving her strength and her abiility to walk. Her H&H remain stable. She is back on ASA and Plavix but not on Xarelto. She is awating scope as an outpatient.Although her strength is much improved she has to always use her walker for ambulation, otherwise there is a significant risk for falling.She has no difficulties with voiding or bowel movements.She will continue to follow as an outaptient with Dr Nieves for her vascular issuesShe will need to have upper and lower GI scope.We are still holding her Xarelto.Her appetite continues to improve, she denies headache and has not felt lightheaded or dizzy. She denies any EENT complaints. The patient denies shortness of breath, wheezing or cough. She denies chest pain or palpitations. She denies abdominal pain and has not had heartburn, indigestion, dysphagia or odynophagia. She is voiding without difficulty and denies any complaints. She has her usual chronic aches and pains, but denies any new musculoskeletal complains. The sacral wound is also healing nicely per staff, and almost completely resolved. The patient did have a cellulitis and phlebitis on the right forearm and that is also improving with treatment. She has no other new skin issues. Her overall weakness is much improved. She denies any new numbness or tingling. Full review of systems is as noted above, otherwise is unremarkable. ObjectiveNote:Temp; 98.0, Pulse; 52, Resp: 18, B/P: 118/55 SaO2: 96, O2 Status: EENT PERRL/EOMI, normal ENT inspectionNeck normal inspection, non-tender, supple, full range of motionRespiratory chest non-tender, lungs clear, normal breath sounds, no respiratory distress, no accessory muscle useCardiovascular regular rate/rhythm, no edema, no gallop, no JVD, no murmurGastrointestinal normal bowel sounds, non tender, soft, no organomegaly, no pulsatile massBack no rmal inspection, no CVA tendernessExtremities non-tender, normal range of motion, normal inspection, normal capillary refill, no calf tenderness, no pedal edemaNeurologic/Psychiatric alert, looper fixer II-XII nml as tested, normal mood/affect, no motor/sensory deficits, oriented x 3Skin warm/dryOther:Current MedicationsAcetaminophen 650 MG Q6H PRN PO FEVER GREATER THAN 101 Acetaminophen 650 MG Q6H PRN PO PAIN MILD (1-08/02) Albuterol/Ipratropium 3 ML Q6H.RT PRN IH wheeze Allopurinol 100 MG DAILY PO Aspirin 81 MG DAILY PO Atorvastatin Calcium 10 MG DAILY PO Brimonidine Tartrate 2 DROP DAILY OU Calcium Carbonate 1,000 MG Q6H PRN PO INDIGESTION Clopidogrel Bisulfate 75 MG DAILY PO Docusate Sodium 100 MG BID PO Duloxetine HCl 60 MG HS PO Ferrous Sulfate 325 MG DAILY PO Furosemide 20 MG BID.1 PO Gabapentin 400 MG TID PO Insulin Aspart 1 UNIT ACHS SC Insulin Glargine 6 U BID SC Levothyroxine Sodium 50 MCG DAILY@0600 PO Magnesium Oxide 400 MG DAILY PO Memantine 10 MG BID PO Metoprolol Succinate 25 MG DAILY 2100 PO Multivitamins 1 TAB DAILY PO Nitroglycerin 0.4 MG Q5M PRN SL CHEST PAIN Nutritional Formula (Lactose Free) 1 CAP DAILY@1400 PO Omeprazole 40 MG BID PO Ondansetron HCl 4 MG Q4H PRN PO NAUSEA/VOMITING Potassium Chloride 10 MEQ DAILY PO Sodium Chloride USE 1 SPRAY IN EACH NOSTRIL Q4H PRN NS NASAL DRYNESS Sucralfate 1 GM ACHS PO (NF) ammonium lactate 10% 1 HADLEY DAILY PRN TOP DRY SKIN (NF) latanoprost 0.005% 2 DROP HS OU (NF) zanaflex 2 MG BID PRN PO SPASTICITY Vital Signs 03/09 03/10 2056 0711 Temp 98.2 98.0 Pulse 62 52 Resp 19 18 B/P 137/47 118/55 B/P Mean Pulse Ox 96 96 O2 Delivery O2 Flow Rate FiO2 Laboratory Tests 03/09 0640 0640 Chemistry Sodium (136 - 145 mmol/L) 145 Potassium (3.5 - 5.1 mmol/L) 4.1 Chloride (98 - 107 mmol/L) 108 H Carbon Dioxide (21 - 32 mmol/L) 25 Anion Gap (5 - 12 mmol/L) 12.0 BUN (7 - 18 mg/dL) 53 H Creatinine (0.55 - 1.02 mg/dl) 1.57 H Estimated GFR (MDRD) (mL/min) 33 Glucose (74 - 106 mg/dL) 120 H Calcium (8.5 - 10.1 mg/dL) 8.7 Total Bilirubin (0.2 - 1.0 mg/dL) 0.3 AST (15 - 37 U/L) 16 ALT (14 - 59 U/L) 21 Alkaline Phosphatase (46 - 116 U/L) 107 C-Reactive Protein (0.0 - 3.0 mg/L) 20.9 H Total Protein (6.4 - 8.2 g/dL) 6.4 Albumin (3.4 - 5.0 gm/dL) 2.4 L TSH (0.358 - 3.740 uIU/mL) 1.426 Hematology WBC (4.0 - 10.0 K/mm3) 9.3 RBC (4.00 - 5.50 M/mm3) 3.05 L Hgb (12.0 - 16.0 gm/dL) 9.0 L Hct (36.0 - 48.8 %) 28.1 L MCV (80 - 96 fl) 92.1 MCH (27.0 - 31.0 pg) 29.5 MCHC Differential (32.0 - 36.0 g/dl) 32.0 RDW (10.0 - 14.5 %) 16.4 H Plt Count (172 - 450 K/mm3) 377 MPV (9.0 - 13.0 fl) 12.1 Gran % (Auto) (50 - 80.0 %) 69.0 Gran # (2.0 - 8.00 K/mm3) 6.4 Immature Gran % (0.0 - 0.2 %) 0.1 Lymphocytes % (25.0 - 50.0 %) 17.8 L Monocytes % (2.0 - 10.0 %) 6.9 Eosinophils % (0 - 5.0 %) 5.7 H Basophils % (0.0 - 2.0 %) 0.5 Immature Gran # (0.0 - 0.2 K/mm3) 0.0 Lymphocytes # (1.0 - 5.0 K/mm3) 1.7 Monocytes # (0.10 - 1.20 K/mm3) 0.6 Eosinophils # (0.0 - 0.5 K/mm3) 0.5 Basophils # (0.0 - 0.2 K/mm3) 0.1 ESR (0 - 30 mm/hr) 38 H Assessment/PlanAllergiesCoded Allergies:captopril (01/15/21) Problem List 1. Anemia A&PHb is 9.0Low but stable. Continue to follow. 2. Ambulatory dysfunction A&PImprovingAwaiting discharge home next week. Mrs Yip has to ambulate with a walker always. 3. Debility, unspecified 4. History of falling A&PMrs Akin HAS TO use her walker always for ambulation. She may need a hospital bed as well as other DME as indicated by PT. 5. Abdominal wound dehiscence A&PHealed Per Secundam. 6. Sacral wound A&PImproving 7. Paroxysmal atrial fibrillation A&PGood rate control. Off blood thinner due to GI bleed.Would leave the decision torestart to personal protection specialist after GI evaluation 8. Diastolic CHF A&PStableContinue diuretic and betablocker 9. COPD (chronic obstructive pulmonary disease) A&PContinue maintainance resp therapy. 10. Type 2 diabetes mellitus A&PADA diet Lantus insulin and sliding scale coverage 11. Hypertension A&PWell controlled Continue Amlodipine and Metoprolol 12. Hyperlipidemia A&PAtorvastatin to be contoinued 13. Chronic kidney disease (CKD) A&PStable Avoid dehydration and nephrotoxic medications 14. Severe protein-calorie malnutrition A&PContinue fortified diet 15. Mesenteric artery stenosis A&PSt post bypass surgery Continue Plavix and Aspirin 16. GERD (gastroesophageal reflux disease) A&PContinue PPOIs and Carafate. Hx of gastric bypass surgery 2012 with recent gi bleed. 17. Hypothyroidism A&PContihue supplementation 18. Depression A&PDuloxetine to be continued 19. Glaucoma A&PContinue eye drops Latanoprost and Brimonidine 20. Gout A&PAllopurinol to be continued 21. Leg pain A&PContoinue Gabapentin and Cymbalta IV Access/Tubes/Barrett CatheterIV Access: NoneTubes: NoneFoley Catheter: None VTE ProphylaxisVTE Prophylaxis: TEDS and ambulation Name Value Range Interpretation Code Description Data Haylee rce(s) Supporting Document(s) ID Date Data Source [id number] 03/09/2021 08:11:00 AM EDT [facility] Name Value Range Interpretation Code Description Data Haylee rce(s) Supporting Document(s) ERYTHROCYTE SEDIMENTATION RATE 38 mm/hr 0-[address] [facility] ID Date Data Source [id number] 03/09/2021 07:07:00 AM [facility] Name Value Range Interpretation Code Description Data Haylee rce(s) Supporting Document(s) WHITE BLOOD COUNT 9.3 K/mm3 4.0-10.0 [facility] al RED BLOOD COUNT 3.05 M/mm3 4.00-5.50 L [facility] HEMOGLOBIN 9.0 gm/dL 12.0-16.[address] [facility] HEMATOCRIT 28.1 % 36.0-48.[address] [facility] MEAN CELL VOLUME 92.1 fl 80-96 [facility] MEAN CORPUSCULAR HEMOGLOBIN 29.5 pg 27.0-31.0 [facility] MEAN CORPUSCULAR HGB CONC 32.0 g/dl 32.0-36.0 [facility] RED CELL DISTRIBUTION WIDTH 16.4 % 10.0-14.5 H [facility] PLATELET COUNT 377 K/mm3 172-[address] [facility] MEAN PLATELET VOLUME 12.1 fl 9.0-13.0 [facility] pital GRAN % 69.0 % 50-80.[address] [facility] IG% 0.1 % 0.0-0.[address] [facility] LYMPH % 17.8 % 25.0-50.[address] [facility] MONO % 6.9 % 2.0-10.[address] [facility] EOS % 5.7 % 0-5.[address] [facility] BASO % 0.5 % 0.0-2.[address] [facility] GRAN # 6.4 K/mm3 2.0-8.[address] [facility] IG# 0.0 K/mm3 0.0-0.[address] [facility] LYMPH # 1.7 K/mm3 1.0-5.[address] [facility] MONO # 0.6 K/mm3 0.10-1.[address] [facility] EOS # 0.5 K/mm3 0.0-0.[address] [facility] BASO # 0.1 K/mm3 0.0-0.[address] [facility] ID Date Data Source [id number] 03/09/2021 07:31:00 AM EDT [facility] l Name Value Range Interpretation Code Description Data Haylee rce(s) Supporting Document(s) C REACTIVE PROTEIN 20.9 mg/L 0.0-3.0 H [facility] ID Date Data Source [id number] 03/09/2021 07:31:00 AM EDT [facility] l Name Value Range Interpretation Code Description Data Haylee rce(s) Supporting Document(s) TSH 1.426 uIU/mL 0.358-3.[address] [facility] ID Date Data Source [id number] 03/09/2021 07:31:00 AM EDT [facility] l Name Value Range Interpretation Code Description Data Haylee rce(s) Supporting Document(s) GLUCOSE 120 mg/dL 74-[address] [facility] BLOOD UREA NITROGEN 53 mg/dL 7-18 H [facility] ital CREATININE 1.57 mg/dl 0.55-1.[address] [facility] SODIUM 145 mmol/L 136-[address] [facility] POTASSIUM 4.1 mmol/L 3.5-5.[address] [facility] CHLORIDE 108 mmol/L 98-[address] [facility] CO2 25 mmol/L 21-[address] [facility] CALCIUM 8.7 mg/dL 8.5-10.[address] [facility] ANION GAP 12.0 mmol/L 5-[address] [facility] GLOMERULAR FILTRATION RATE 33 mL/min [facility] GFR IS CALCULATED IN mL/min/1.73m2 TRACY L FUNCTION: >90MILDLY DECREASED: 60-89MILDY TO MODERATELY DECREASED: 45-59 MODERATELY TO SEVERELY DECREASED: 30-44SEVERELY DECREASED: 15-29RENAL FAILURE: <15 AST 16 U/L 15-[address] [facility] ALT 21 U/L 14-[address] [facility] ALKALINE PHOSPHATASE 107 U/L 46-116 [facility] pital TOTAL BILIRUBIN 0.3 mg/dL 0.2-1.[address] [facility] TOTAL PROTEIN 6.4 g/dL 6.4-8.[address] [facility] ALBUMIN 2.4 gm/dL 3.4-5.0 [facility] ID Date Data Source [id number] 03/08/2021 09:53:00 AM EDT [facility] l In-Patient NoteNote:Mrs Yip is co mplaining of feeling very tired today.She denies any chesty pain or chest pressure. She denies any shortness of breath, cough, feeling feverish, no chills. There was no GI or symptoms.There wasnobloody or black tarry stools.Vital Signs 03/07 03/08 191 0818 Temp 97.8 98.0 Pulse 61 60 Resp 15 18 B/P 144/61 152/82 B/P Mean Pulse Ox 95 95 O2 Delivery O2 Flow Rate FiO2 HEENT PERRL/EOMI, normal ENT inspectionNeck normal inspection, non-tender, suppleRespiratory lungs clear, no respiratory distress, no accessory muscle useCardiovascular regular rate/rhythm, no JVDPeripheral Pulses4+ carotid (R), 4+ carotid (L), 4+ femoral (R), 4+ femoral (L), 4+ dorsalis pedis (R), 4+ dorsalis pedis (L)Gastrointestinal normal bowel sounds, non tender, soft, no organomegalyBack normal inspection, no CVA tendernessExtremities no calf tenderness, no pedal edemaNeurologic/Psychiatric alert, looper fixer II-XII nml as tested, normal mood/affect, no motor/sensory deficits, oriented x 3Skin normal color, warm/dryLymphatic no adenopathy A/P: 70 year old female recovering from bowel resection after mesenteric artery occlusion, bowel ischemia and mesenteric artery bypass surgery complicated by postop MRSA pneumonia and prolonged ICU stay, wound dehiscence and then gastrointestinal bleed. Awating scope with GI on outpatient basis. Will repeat labs. Name Value Range Interpretation Code Description Data Haylee rce(s) Supporting Document(s) ID Date Data Source [id number] 03/05/2021 11:10:00 AM EDT [facility] l Progress Note GeneralEncounter:Chart re viewed. Patient interviewed and examined. Labs, medications and orders viewed by me. SubjectiveGeneral Condition:70 yo female seen at bedside without specific complaint. No overnight or nursing issues reported. Denies: f/c/r, h/a, n/v/d, ST, difficulty with swallowing or speech, CP, cough/productive sputum/hemoptysis, CASTANON/SOB, PND, orthopnea, Abdominal/flank pain, dysuria/hematuria, change in bladder or bowel function, hematochezia, melena, bleeding/bruising, new bone/muscle/joint pain, new skin lesions, weight loss or gain. 10 point review of system complete, pertinent positives outlined above. Tolerating PO intake. Voiding fine. BM reported by patient to be regular. ObjectiveNote:Temp; 98.0, Pulse; 67, Resp: 18, B/P: 153/63 SaO2: 97, O2 Status: RA EENT PERRL/EOMI, normal ENT inspectionNeck normal inspection, non-tender, suppleRespiratory lungs clear, no respiratory distress, no accessory muscle useCardiovascular regular rate/rhythm, no JVDPeripheral Pulses4+ carotid (R), 4+ carotid (L), 4+ femoral (R), 4+ femoral (L), 4+ dorsalis pedis (R), 4+ dorsalis pedis (L)Gastrointestinal normal bowel sounds, non tender, soft, no organomegalyBack normal inspection, no CVA tendernessExtremities no calf tenderness, no pedal edemaNeurologic/Psychiatric alert, looper fixer II-XII nml as tested, normal mood/affect, no motor/sensory deficits, oriented x 3Skin normal color, warm/dryLymphatic no adenopathyOther:Laboratory Tests 03/05 03/05 0635 0635 Chemistry Sodium (136 - 145 mmol/L) 143 Potassium (3.5 - 5.1 mmol/L) 4.0 Chloride (98 - 107 mmol/L) 109 H Carbon Dioxide (21 - 32 mmol/L) 23 Anion Gap (5 - 12 mmol/L) 11.0 BUN (7 - 18 mg/dL) 46 H Creatinine (0.6 - 1.0 mg/dL) 1.51 H Estimated GFR (MDRD) (mL/min) 34 Glucose (74 - 106 mg/dL) 106 Calcium (8.5 - 10.1 mg/dL) 8.5 Magnesium (1.8 - 2.4 mg/dL) 1.9 Current MedicationsAcetaminophen 650 MG Q6H PRN PO FEVER GREATER THAN 101 Acetaminophen 650 MG Q6H PRN PO PAIN MILD (-08/02) Albuterol/Ipratropium 3 ML TID IH Allopurinol 100 MG DAILY PO Amlodipine Besylate 5 MG DAILY PO Aspirin 81 MG DAILY PO Atorvastatin Calcium 10 MG DAILY PO Brimonidine Tartrate 2 DROP DAILY OU Calcium Carbonate 1,000 MG Q6H PRN PO INDIGESTION Clopidogrel Bisulfate 75 MG DAILY PO Docusate Sodium 100 MG BID PO Duloxetine HCl 60 MG HS PO Ferrous Sulfate 325 MG DAILY PO Furosemide 20 MG BID.1 PO Gabapentin 400 MG TID PO Insulin Aspart 1 UNIT ACHS SC Insulin Glargine 6 U BID SC Levothyroxine Sodium 50 MCG DAILY@0600 PO Magnesium Oxide 400 MG DAILY PO Memantine 10 MG BID PO Multivitamins 1 TAB DAILY PO Nitroglycerin 0.4 MG Q5M PRN SL CHEST PAIN Omeprazole 40 MG BID PO Ondansetron HCl 4 MG Q4H PRN PO NAUSEA/VOMITING Potassium C hloride 10 MEQ DAILY PO Sodium Chloride USE 1 SPRAY IN EACH NOSTRIL Q4H PRN NS NASAL DRYNESS Sucralfate 1 GM ACHS PO (NF) ammonium lactate 10% 1 HADLEY DAILY PRN TOP DRY SKIN (NF) latanoprost 0.005% 2 DROP HS OU (NF) zanaflex 2 MG BID PRN PO SPASTICITY Vital Signs-Last Result Date Time Pulse Ox 97 03/05 0851 B/P 153/63 03/05 851 Temp 98.0 03/05 08 Pulse 67 03/05 0851 Resp 18 03/05 0851 Assessment/PlanAllergiesCoded Allergies:captopril (01/15/21) Problem List 1. Anemia A&Ph/h remains stableoff VTE chemo-prophylaxis and using TEDS and ambulating Last FOBT was negativeshe will need rescheduled OP [facility] 2. Ambulatory dysfunction A&Pimproving and likely d/c home this week with home health 3. Debility, unspecified A&Pas outlined 4. History of falling A&Pmaintain fall precautionsCase management speaking with her home caregiverFamily is building ramp into home and she likely needs a hospital bedWill see if she needs any other home DME prior to d/c 5. Abdominal wound dehiscence A&PHealing well by secondary intentNo issues 6. Sacral wound A&Phealing wellc/w foam dressing and off loading as needed 7. Paroxysmal atrial fibrillation A&Prate controlledOff AC d/t risk of GI bleedWill deferr for time being and can be revisted with her PCP after d/c 8. Diastolic CHF A&PMonitor for any significant signs and symptoms. Continue Lasix and beta kristan 9. COPD (chronic obstructive pulmonary disease) A&PContinue DuoNeb treatments and monitor for exacerbating symptoms 10. Type 2 diabetes mellitus A&PContinue diabetic diet. Continue fingersticks with sliding scale insulin coverage. Continue Lantus. 11. Hypertension A&PContinue to follow blood pressure. Continue Lasix, amlodipine and metoprolol. 12. Hyperlipidemia A&PContinue atorvastatin 13. Chronic kidney disease (CKD) A&Pstablec/t monitor 14. Severe protein-calorie malnutrition A&PContinue to encourage by mouth intake. Continue protein supplement 15. Mesenteric artery stenosis A&PThe patient is status post surgical interventionc/w plavix and asawill need OP follow up after d/c home 16. GERD (gastroesophageal reflux disease) A&Pc/w carafate and omeprazole 17. Hypothyroidism A&PContinue levothyroxine 18. Depression A&PContinue duloxetine 19. Glaucoma A&PContinue brimonidine and latanoprost 20. Gout A&Pc/w allopurinol 21. Leg pain A&Phas been seen by Dr. Chinchilla ([facility]) in past and known h/o neuropathyc/w gabapentin, duloxetine as well as when necessary Zanaflex 22. Hypomagnesemia A&Pc/w po mag supplemenation 23. Hypokalemia A&Pc/w po potassium supplementation Disposition PlanHospital stay: remains SARAnticipated Discharge: c/t participate with PT and ambulation, appreciate input from PT and Case management- likely home this week. IV Access/Tubes/Barrett CatheterIV Access: noneTubes: noneFoley Catheter:none VTE ProphylaxisVTE Prophylaxis: The patient is off anticoagulation due to her recent GI bleed. LIUDMILA stockings and continued frequent ambulation. Name Value Range Interpretation Code Description Data Haylee rce(s) Supporting Document(s) ID Date Data Source [id number] 03/05/2021 08:14:00 AM EDT [facility] l Name Value Range Interpretation Code Description Data Haylee rce(s) Supporting Document(s) MAGNESIUM 1.9 mg/dL 1.8-2.[address] [facility] ID Date Data Source [id number] 03/05/2021 07:30:00 AM EDT [facility] l Name Value Range Interpretation Code Description Data Haylee rce(s) Supporting Document(s) GLUCOSE 106 mg/dL 74-[address] [facility] BLOOD UREA NITROGEN 46 mg/dL 7-18 H [facility] ital CREATININE 1.51 mg/dL 0.6-1.[address] [facility] SODIUM 143 mmol/L 136-[address] [facility] POTASSIUM 4.0 mmol/L 3.5-5.[address] [facility] CHLORIDE 109 mmol/L 98-[address] [facility] CO2 23 mmol/L 21-[address] [facility] CALCIUM 8.5 mg/dL 8.5-10.[address] [facility] ANION GAP 11.0 mmol/L 5-[address] [facility] GLOMERULAR FILTRATION RATE 34 mL/min [facility] GFR IS CALCULATED IN mL/min/1.73m2 TRACY L FUNCTION: >90MILDLY DECREASED: 60-89MILDY TO MODERATELY DECREASED: 45-59 MODERATELY TO SEVERELY DECREASED: 30-44SEVERELY DECREASED: 15-29RENAL FAILURE: <15 ID Date Data Source [id number] 03/05/2021 03:57:00 AM EDT [facility] Progress Note GeneralEncounter:Chart re viewed. Patient interviewed and examined. Labs, medications and orders viewed by me. SubjectiveGeneral Condition:This is a 70-year-old female with past medical history significant for coronary artery disease, status post coronary artery bypass surgery, hypertension, hyperlipidemia, chronic kidney disease stage III, gastroesophageal reflux, diastolic CHF, diabetes mellitus, carotid artery disease, status post left CEA, mesenteric artery stenosis and status post mesenteric artery bypass surgery, paroxysmal atrial fibrillation, metabolic syndrome, and I, glaucoma, gastric bypass surgery in 2012 and recent bowel resection and mesenteric artery bypass on 10/31/2020 with postoperative period complicated by hospital- acquired pneumonia and partial surgical incision dehiscence admitted to [facility] on01/15/2021 for subacute rehabilitation-developed gastrointestinal bleeding that required packed red blood cells transfusion. Her hemoglobin dropped to 7.8. on January 31. At that time, the patient had no physical complaints except for a very significant fatigue.. Patient was transfused with 1 unit of packed red blood cells. In the late evening January 31 Mrs Akin hoang developed high fever and chills. Blood and urine cultures were obtained. Patient did have CT scan of her chest, abdomen and pelvis. She did receive 2 G of ceftriaxone and IV hydration. Her fever was treated with Tylenol.The results of her cultures are still pending. Since 01.31.2021 Mrs Yip stools are positive for occult blood. She does not have bright red blood in her stool. We attempted every day to transfer the patient to [place] to get into an appriopriate treatment with specialty including GI,General Surgery, ID .Vascularsurgery available. On 02/03/2021 Mrs Yip required another 2 units of PRBCs. At this point we started the patient on Protonix drip that was later transitioned to PPIs orally.We continue to follow patients CBC frequently. Her Xarelto is still on hold.HerHb is gradually but but slower going down.She may need Upper and lower GI scope. ObjectiveNote:Temp; 98.2, Pulse; 65, Resp: 19, B/P: 147/58 SaO2: 99, O2 Status: Other: EENT PERRL/EOMI, normal ENT inspectionNeck normal inspection, non-tender, suppleRespiratory chest non- tender, lungs clear, normal breath sounds, no respiratory distress, no accessory muscle useCardiovascular regular rate/rhythm, no edema, no gallop, no JVD, no murmurGastrointestinal normal bowel sounds, non tender, soft, no organomegaly, no pulsatile mass, THe midline incision has two areas of dehiscence that are healing per secundam. The rest of the incision is healed. There is no signs of infection.Back normal inspection, no CVA tendernessExtremities non-tender, normal range of motion, normal inspection, normal capillary refill, no calf tenderness, no pedal edemaSkin normal color, warm/dryLymphatic no adenopathy Assessment/PlanAllergiesCoded Allergies:captopril (01/15/21) Problem List 1. Gastrointestinal bleed A&P Because of a limited bed availability we were unable to transfer the patient.Lady had some positive FOBT but no gross hematochezia.Her Hb is dropping down butmuch slower then before. Dr Romero contacted GI service and Mrs. Yip will go for outpatient scope when available Omeprazole 40mg bid today and c/w Carafate 3. History of falling A&PContinue gait trainging/stregthening with PT 4. Ambulatory dysfunction A&PGait training/stregthening and encouraged to walk with PT and nursing.Much improved 5. Debility, unspecified A&PImprovedSee PT note. 6. Abdominal wound dehiscence A&PHealed well. 7. Sacral wound A&PImproving with increased mobility and also better PO intake 8. Paroxysmal atrial fibrillation A&Ps/p ablationRate controlled with metoprolol AC with Eliquis -currently on hold, could consider resuming next week if still no signs of GI bleed 9. Diastolic CHF A&PCompensated 10. COPD (chronic obstructive pulmonary disease) A&amp ;PStableNot O2 and not steroid dependentc/w nebs/inhalers prn 11. Type 2 diabetes mellitus A&PConsistent carb dietFSBS AC&HS 12. Hypertension A&PMetoprolol, amlodipine and Lasix with hold parameters 13. Hyperlipidemia A&Pc/w lipitor 14. Coronary artery disease A&PStableWithout complaints of chest pain or cardiac equivalent symptomsprior GI bleed looks to be stable: resu me aspirin and Plavix and monitor-c/w prn sublingual nitroglycerin 15. Chronic kidney disease (CKD) A&PCK D stage IIISerum creatinine is baselineContinue to monitor and avoid unnecessary nephrotoxinsFollow-up with Dr. Lira as an outpatient 16. Depression A&PStableContinue duloxetine 17. Chronic anemia A&PSee the note above regarding GI bleed. 18. Glaucoma A&PContinue br imonidine and Latanoprost drops 19. GERD (gastroesophageal reflux disease) A&POmeprazole 40mg bid and c/w carafate 20. History of GA (myocardial infarction) A&PNo chest pain or cardiac equivalent symptoms. 21. Sleep apnea A&PUse home CPAP machine 22. Mesenteric artery stenosis A&Ps/p stent placementResume plavix and ASA and monitor for GI bleed 23. Hypothyroidism A& PStableContinue levothyroxine 24. Gout A&PStable continue allopurinol 25. Leg pain A&PLikely secondary to diabetic neuropathyContinue gabapentin and Zanaflex for back spasms 26. Mild cognitive impairment A&PContinue memantine 27. UTI (urinary tract infection) A&PResolved 28. Cellulitis of right arm A&PResolved 29. Phlebitis of superficial vein of upper extremity A&PResolved VTE ProphylaxisVTE Prophylaxis: Teds. Name Value Range Interpretation Code Description [facility] Document[facility]s) ID Date Data Source [id number] 03/04/2021 06:12:00 AM EDT [facility] Name Value Range Interpretation Code Description Data [facility] Supporting Document(s) WHITE BLOOD COUNT 9.3 K/mm3 4.0-10.0 [facility] al RED BLOOD COUNT 2.96 M/mm3 4.00-5.50 L [facility] HEMOGLOBIN 8.8 gm/dL 12.0-16.[address] [facility] HEMATOCRIT 26.2 % 36.0-48.[address] [facility] MEAN CELL VOLUME 88.5 fl 80-96 [facility] MEAN CORPUSCULAR HEMOGLOBIN 29.7 pg 27.0-31.0 [facility] MEAN CORPUSCULAR HGB CONC 33.6 g/dl 32.0-36.0 [facility] RED CELL DISTRIBUTION WIDTH 15.8 % 10.0-14.5 H [facility] PLATELET COUNT 358 K/mm3 172-[address] [facility] MEAN PLATELET VOLUME 11.6 fl 9.0-13.0 [facility] pital GRAN % 73.6 % 50-80.[address] [facility] IG% 0.2 % 0.0-0.[address] [facility] LYMPH % 13.3 % 25.0-50.[address] [facility] MONO % 6.7 % 2.0-10.[address] [facility] EOS % 5.7 % 0-5.[address] [facility] BASO % 0.5 % 0.0-2.[address] [facility] GRAN # 6.9 K/mm3 2.0-8.[address] [facility] IG# 0.0 K/mm3 0.0-0.[address] [facility] LYMPH # 1.2 K/mm3 1.0-5.[address] [facility] MONO # 0.6 K/mm3 0.10-1.[address] [facility] EOS # 0.5 K/mm3 0.0-0.[address] [facility] BASO # 0.1 K/mm3 0.0-0.[address] [facility] ID Date Data Source [id number] 03/01/2021 07:01:00 AM EDT [facility] Name Value Range Interpretation Code Description Data [facility] rce(s) Supporting Document(s) GLUCOSE 88 mg/dL 74-[address] [facility] BLOOD UREA NITROGEN 40 mg/dL 7-18 H [facility] ital CREATININE 1.33 mg/dL 0.6-1.[address] [facility] SODIUM 142 mmol/L 136-[address] [facility] POTASSIUM 3.8 mmol/L 3.5-5.[address] [facility] CHLORIDE 108 mmol/L 98-[address] [facility] CO2 24 mmol/L 21-[address] [facility] CALCIUM 8.2 mg/dL 8.5-10.[address] [facility] ANION GAP 10.0 mmol/L 5-[address] [facility] GLOMERULAR FILTRATION RATE 40 mL/min [facility] GFR IS CALCULATED IN mL/min/1.73m2 TRACY L FUNCTION: >90MILDLY DECREASED: 60-89MILDY TO MODERATELY DECREASED: 45-59 MODERATELY TO SEVERELY DECREASED: 30-44SEVERELY DECREASED: 15-29RENAL FAILURE: <15 AST 10 U/L 15-[address] [facility] ALT 19 U/L 12-[address] [facility] ALKALINE PHOSPHATASE 100 U/L 46-116 [facility] pital TOTAL BILIRUBIN 0.2 mg/dL 0.2-1.[address] [facility] TOTAL PROTEIN 5.0 g/dl 6.4-8.[address] [facility] ALBUMIN 2.0 gm/dL 3.4-5.0 [facility] ID Date Data Source [id number] 03/01/2021 06:40:00 AM EDT [facility] Name Value Range Interpretation Code Description Data [facility]lee rce(s) Supporting Document(s) WHITE BLOOD COUNT 8.0 K/mm3 4.0-10.0 [facility] RED BLOOD COUNT 2.78 M/mm3 4.00-5.50 L [facility] HEMOGLOBIN 8.2 gm/dL 12.0-16.[address] [facility] HEMATOCRIT 25.0 % 36.0-48.[address] [facility] MEAN CELL VOLUME 89.9 fl 80-96 [facility] MEAN CORPUSCULAR HEMOGLOBIN 29.5 pg 27.0-31.0 [facility] MEAN CORPUSCULAR HGB CONC 32.8 g/dl 32.0-36.0 [facility] RED CELL DISTRIBUTION WIDTH 15.7 % 10.0-14.5 H [facility] PLATELET COUNT 381 K/mm3 172-[address] [facility] MEAN PLATELET VOLUME 11.8 fl 9.0-13.0 [facility] pital GRAN % 64.6 % 50-80.[address] [facility] IG% 0.1 % 0.0-0.[address] [facility] LYMPH % 20.0 % 25.0-50.[address] [facility] MONO % 7.6 % 2.0-10.[address] [facility] EOS % 7.0 % 0-5.[address] [facility] BASO % 0.7 % 0.0-2.[address] [facility] GRAN # 5.2 K/mm3 2.0-8.[address] [facility] IG# 0.0 K/mm3 0.0-0.[address] [facility] LYMPH # 1.6 K/mm3 1.0-5.[address] [facility] MONO # 0.6 K/mm3 0.10-1.[address] [facility] EOS # 0.6 K/mm3 0.0-0.[address] [facility] BASO # 0.1 K/mm3 0.0-0.[address] [facility] ID Date Data Source [id number] 03/01/2021 12:29:00 AM EDT [facility] In-Patient NoteNote:Laboratory Tests 02/26 637 Chemistry Sodium (136 - 145 mmol/L) 142 Potassium (3.5 - 5.1 mmol/L) 4.1 Chloride (98 - 107 mmol/L) 109 H Carbon Dioxide (21 - 32 mmol/L) 24 Anion Gap (5 - 12 mmol/L) 9.0 BUN (7 - 18 mg/dL) 45 H Creatinine (0.6 - 1.0 mg/dL) 1.64 H Estimated GFR (MDRD) (mL/min) 31 Glucose (74 - 106 mg/dL) 115 H Calcium (8.5 - 10.1 mg/dL) 8.3 L Total Bilirubin (0.2 - 1.0 mg/dL) 0.2 AST (15 - 37 U/L) 11 L ALT (12 - 78 U/L) 19 Alkaline Phosphatase (46 - 116 U/L) 104 Total Protein (6.4 - 8.2 g/dl) 5.2 L Albumin (3.4 - 5.0 gm/dL) 2.0 L Hematology WBC (4.0 - 10.0 K/mm3) 7.5 RBC (4.00 - 5.50 M/mm3) 2.88 L Hgb (12.0 - 16.0 gm/dL) 8.5 L Hct (36.0 - 48.8 %) 26.1 L MCV (80 - 96 fl) 90.6 MCH (27.0 - 31.0 pg) 29.5 MCHC Differential (32.0 - 36.0 g/dl) 32.6 RDW (10.0 - 14.5 %) 15.7 H Plt Count (172 - 450 K/mm3) 373 Current MedicationsAcetaminophen 650 MG Q6H PRN PO FEVER GREATER THAN 101 Acetaminophen 650 MG Q6H PRN PO PAIN MILD (-08/02) Albuterol/Ipratropium 3 ML TID IH Allopurinol 100 MG DAILY PO Amlodipine Besylate 5 MG DAILY PO Aspirin 81 MG DAILY PO Atorvastatin Calcium 10 MG DAILY PO Brimonidine Tartrate 2 DROP DAILY OU Calcium Carbonate 1,000 MG Q6H PRN PO INDIGESTION Clopidogrel Bisulfate 75 MG DAILY PO Docusate Sodium 100 MG BID PO Duloxetine HCl 60 MG HS PO Ferrous Sulfate 325 MG DAILY PO Furosemide 20 MG BID.1 PO Gabapentin 400 MG TID PO Insulin Aspart 1 UNIT ACHS SC Insulin Glargine 6 U BID SC Levothyroxine Sodium 50 MCG DAILY@0600 PO Magnesium Oxide 400 MG DAILY PO Ailyn ntine 10 MG BID PO Metoprolol Succinate 25 MG DAILY 2100 PO Multivitamins 1 TAB DAILY PO Nitroglycerin 0.4 MG Q5M PRN SL CHEST PAIN Nutritional Formula (Lactose Free) 1 CAP DAILY@1400 PO Omeprazole 40 MG BID PO Ondansetron HCl 4 MG Q4H PRN PO NAUSEA/VOMITING Potassium Chloride 10 MEQ DAILY PO Sodium Chloride 5 ML QID PRN IV Flush Sodium Chloride USE 1 SPRAY IN EACH NOSTRIL Q4H PRN NS NASAL DRYNESS Sucralfate 1 GM ACHS PO (NF) ammonium lactate 10% 1 HADLEY DAILY PRN TOP DRY SKIN (NF) latanoprost 0.005% 2 DROP HS OU (NF) zanaflex 2 MG BID PRN PO SPASTICITY Vital Signs 02/26 02/26 0734 1928 Temp 98.0 98.2 Pulse 54 67 Resp 18 16 B/P 131/53 151/59 B/P Mean Pulse Ox 97 96 O2 Delivery O2 Flow Rate FiO2 Lab test results were discussed with the patient in details. Continue following as Hb is down comparing with the previous and the patient has recent GI blood loss. Name Value Range Interpretation Code Description Data [facility]lee rce(s) Supporting Document(s) ID Date Data Source [id number] 02/27/2021 07:14:00 AM EDT [facility] Name Value Range Interpretation Code Description Data [facility] rce(s) Supporting Document(s) STOOL FOR OCCULT BLOOD NEGATIVE NEGATIVE [facility] ospital ID Date Data Source [id number] 02/26/2021 07:47:00 AM [facility] Name Value Range Interpretation Code Description Data [facility] rce(s) Supporting Document(s) GLUCOSE 115 mg/dL 74-[address] [facility] BLOOD UREA NITROGEN 45 mg/dL 7-18 H [facility] ital CREATININE 1.64 mg/dL 0.6-1.[address] [facility] SODIUM 142 mmol/L 136-[address] [facility] POTASSIUM 4.1 mmol/L 3.5-5.[address] [facility] CHLORIDE 109 mmol/L 98-[address] [facility] CO2 24 mmol/L 21-[address] [facility] CALCIUM 8.3 mg/dL 8.5-10.[address] [facility] ANION GAP 9.0 mmol/L 5-[address] [facility] GLOMERULAR FILTRATION RATE 31 mL/min [facility] GFR IS CALCULATED IN mL/min/1.73m2 TRACY L FUNCTION: >90MILDLY DECREASED: 60-89MILDY TO MODERATELY DECREASED: 45-59 MODERATELY TO SEVERELY DECREASED: 30-44SEVERELY DECREASED: 15-29RENAL FAILURE: <15 AST 11 U/L 15-[address] [facility] ALT 19 U/L 12-[address] [facility] ALKALINE PHOSPHATASE 104 U/L 46-116 [facility] pital TOTAL BILIRUBIN 0.2 mg/dL 0.2-1.[address] [facility] TOTAL PROTEIN 5.2 g/dl 6.4-8.[address] [facility] ALBUMIN 2.0 gm/dL 3.4-5.[address] [facility] ID Date Data Source [id number] 02/26/2021 07:30:00 AM T [facility] Name Value Range Interpretation Code Description Data [facility]lee rce(s) Supporting Document(s) WHITE BLOOD COUNT 7.5 K/mm3 4.0-10.0 [facility] al RED BLOOD COUNT 2.88 M/mm3 4.00-5.50 L [facility] HEMOGLOBIN 8.5 gm/dL 12.0-16.0 [facility] HEMATOCRIT 26.1 % 36.0-48.8 [facility] MEAN CELL VOLUME 90.6 fl 80-96 [facility] MEAN CORPUSCULAR HEMOGLOBIN 29.5 pg 27.0-31.0 [facility] MEAN CORPUSCULAR HGB CONC 32.6 g/dl 32.0-36.0 [facility] RED CELL DISTRIBUTION WIDTH 15.7 % 10.0-14.5 H [facility] PLATELET COUNT 373 K/mm3 172-[address] [facility] ID Date Data Source [id number] 02/22/2021 11:25:00 AM T [facility] Progress Note GeneralEncounter:Chart re viewed. Patient interviewed and examined. Labs, medications and orders viewed by me. SubjectiveGeneral Condition:70 yo female seen at bedside without specific complaint. Feels she is progressing with PTNursing noted some edema and weeping of the left lower extremity.Otherwise no overnight or other nursing issues reported. Denies: f/c/r, h/a, n/v/d, ST, difficulty with swallowing or speech, CP, cough/productive sputum/hemoptysis, CASTANON/SOB, PND, orthopnea, Abdominal/flank pain, dysuria/hematuria, change in bladder or bowel function, hematochezia, melena, bleeding/bruising, new bone/muscle/joint pain, new skin lesions, weight loss or gain. 10 point review of system complete, pertinent positives outlined above. Tolerating PO intake. Voiding fine. BM reported by patient to be regular. ObjectiveNote:Temp; 98.2, Pulse; 68, Resp: 18, B/P: 127/52 SaO2: 96, O2 Status: RA EENT PERRL/EOMI, normal ENT inspectionNeck normal inspection, non- tender, suppleRespiratory lungs clear, normal breath sounds, no respiratory distressCardiovascular regular rate/rhythm, no JVDPeripheral Pulses4+ carotid (R), 4+ carotid (L), 4+ femoral (R), 4+ femoral (L), 4+ dorsalis pedis (R), 4+ dorsalis pedis (L)Gastrointestinal normal bowel sounds, non tender, soft, no organomegaly, no pulsatile mass, 2 abd wound: superior wound 3cm by <.5cm good granulation, no odor and no drainage/infection. smaller inferior wound is 1cm by <.5 cm good granulation, no odor/infection or drainage. Both wound granulating nicely.Back normal inspection, no CVA tenderness, no vertebral tendernessExtre mities no calf tenderness, 3+ edema with small area of weeping of the left lower extremityNeurologic/Psychiatric alert, looper fixer II-XII nml as tested, normal mood/affect, no motor/sensory deficits, oriented x 3Skin normal color, warm/dryLymphatic no adenopathyOther:Laboratory Tests 02/21 0620 Chemistry Sodium (136 - 145 mmol/L) 144 Potassium (3.5 - 5.1 mmol/L) 3.7 Chloride (98 - 107 mmol/L) 109 H Carbon Dioxide (21 - 32 mmol/L) 23 Anion Gap (5 - 12 mmol/L) 12.0 BUN (7 - 18 mg/dL) 36 H Creatinine (0.6 - 1.0 mg/dL) 1.44 H Estimated GFR (MDRD) (mL/min) 36 Glucose (74 - 106 mg/dL) 78 Calcium (8.5 - 10.1 mg/dL) 7.7 L Magnesium (1.8 - 2.4 mg/dL) 1.6 L Total Bilirubin (0.2 - 1.0 mg/dL) 0.2 AST (15 - 37 U/L) 13 L ALT (12 - 78 U/L) 19 Alkaline Phosphatase (46 - 116 U/L) 113 Total Protein (6.4 - 8.2 g/dl) 4.9 L Albumin (3.4 - 5.0 gm/dL) 1.9 L Hematology WBC (4.0 - 10.0 K/mm3) 7.4 RBC (4.00 - 5.50 M/mm3) 3.01 L Hgb (12.0 - 16.0 gm/dL) 9.0 L Hct (36.0 - 48.8 %) 27.1 L MCV (80 - 96 fl) 90.0 MCH (27.0 - 31.0 pg) 29.9 MCHC Differential (32.0 - 36.0 g/dl) 33.2 RDW (10.0 - 14.5 %) 15.7 H Plt Count (172 - 450 K/mm3) 344 MPV (9.0 - 13.0 fl) 11.9 Gran % (Auto) (50 - 80.0 %) 76.2 Gran # (2.0 - 8.00 K/mm3) 5.6 Immature Gran % (0.0 - 0.2 %) 0.1 Lymphocytes % (25.0 - 50.0 %) 12.8 L Monocytes % (2.0 - 10.0 %) 7.6 Eosinophils % (0 - 5.0 %) 2.6 Basophils % (0.0 - 2.0 %) 0.7 Immature Gran # (0.0 - 0.2 K/mm3) 0.0 Lymphocytes # (1.0 - 5.0 K/mm3) 1.0 Monocytes # (0.10 - 1.20 K/mm3) 0.6 Eosinophils # (0.0 - 0.5 K/mm3) 0.2 Basophils # (0.0 - 0.2 K/mm3) 0.1 Current MedicationsAcetaminophen 650 MG Q6H PRN PO FEVER GREATER THAN 101 Acetaminophen 650 MG Q6H PRN PO PAIN MILD (1-3/10) Acetaminophen 650 MG Q6H PRN PO PAIN MILD (1-3/10) Acetaminophen 650 MG Q6H PRN PO FEVER GREATER THAN 101 Albuterol/Ipratropium 3 ML TID IH Allopurinol 100 MG DAILY PO Amlodipine Besylate 5 MG DAILY PO Aspirin 81 MG DAILY PO Atorvastatin Calcium 10 MG DAILY PO Brimonidine Tartrate 2 DROP DAILY OU Calcium Carbonate 1,000 MG Q6H PRN PO INDIGESTION Calcium Carbonate 1,000 MG Q6H PRN PO INDIGESTION Clopidogrel Bisulfate 75 MG DAILY PO Docusate Sodium 100 MG BID PO Duloxetine HCl 60 MG HS PO Ferrous Sulfate 325 MG DAILY PO Furosemide 20 MG BID.1 PO Gabapentin 400 MG TID PO Insulin Aspart 1 UNIT ACHS SC Insulin Glargine 6 U BID SC Levothyroxine Sodium 50 MCG DAILY@0600 PO Magnesium Oxide 400 MG DAILY PO Memantine 10 MG BID PO Metoprolol Succinate 25 MG DAILY 2100 PO Multiv itamins 1 TAB DAILY PO Nitroglycerin 0.4 MG Q5M PRN SL CHEST PAIN Nutritional Formula (Lactose Free) 1 CAP DAILY@1400 PO Omeprazole 40 MG BID PO Ondansetron HCl 4 MG Q4H PRN PO NAUSEA/VOMITING Ondansetron HCl 4 MG Q4H PRN PO NAUSEA/VOMITING Potassium Chloride 10 MEQ DAILY PO Sodium Chloride 5 ML QID PRN IV Flush Sodium Chloride USE 1 SPRAY IN EACH NOSTRIL Q4H PRN NS NASAL DRYNESS Sucralfate 1 GM ACHS PO (NF) ammonium lactate 10% 1 HADLEY DAILY PRN TOP DRY SKIN (NF) latanoprost 0.005% 2 DROP HS OU (NF) zanaflex 2 MG BID PRN PO SPASTICITY Vital Signs- Last Result Date Time Pulse Ox 96 02/22 07 B/P 127/52 02/22 07 Temp 98.2 02/22 07 Pulse 68 02/22 0720 Resp 18 02/22 0720 Assessment/PlanAllergiesCoded Allergies:captopril (01/15/21) Problem List 1. Anemia due to gastrointestinal blood loss A&Ph/h remains stable w/o further indication for transfusion for >1 weekNo further occurrence of GI bleed and last FOBT was negativec/t monitor and repeat labs on friday 2. Ambulatory dysfunction A&PShe continues to gradually improve. Continue to work with PT and staff 3. Debility, unspecified A&Pas outlined 4. History of falling A&PMaintain fall precautions and continue to work with PT and staff 5. Abdominal wound dehiscence A&PHer 2 abdominal wounds, continue to close in. Changed dressings to dry only and no further packing indicatedFollow-up with vascular surgery in 3-4 weeks 6. Sacral wound A&PAccording to nursing, healing nicely, I did not get a chance to observe the wound myself this morning. C/w current treatment plan. Continue foam dressing (Allevyn) 7. Paroxysmal atrial fibrillation A&P Name Value Range Interpretation Code Description Data Haylee rce(s) Supporting Document(s) ID Date Data Source [id number] 02/21/2021 09:30:00 AM EDT [facility] In-Patient NoteNote:Laboratory Tests 02/20 02/21 1005 0644 Chemistry Sodium (136 - 145 mmol/L) 140 144 Potassium (3.5 - 5.1 mmol/L) 4.1 3.7 Chloride (98 - 107 mmol/L) 107 109 H Carbon Dioxide (21 - 32 mmol/L) 24 23 Anion Gap (5 - 12 mmol/L) 9.0 12.0 BUN (7 - 18 mg/dL) 36 H 36 H Creatinine (0.6 - 1.0 mg/dL) 1.49 H 1.44 H Estimated GFR (MDRD) (mL/min) 35 36 Glucose (74 - 106 mg/dL) 97 78 Calcium (8.5 - 10.1 mg/dL) 8.2 L 7.7 L Magnesium (1.8 - 2.4 mg/dL) 1.6 L Total Bilirubin (0.2 - 1.0 mg/dL) 0.2 AST (15 - 37 U/L) 13 L ALT (12 - 78 U/L) 19 Alkaline Phosphatase (46 - 116 U/L) 113 Total Protein (6.4 - 8.2 g/dl) 4.9 L Albumin (3.4 - 5.0 gm/dL) 1.9 L Hematology WBC (4.0 - 10.0 K/mm3) 7.4 RBC (4.00 - 5.50 M/mm3) 3.01 L Hgb (12.0 - 16.0 gm/dL) 9.0 L Hct (36.0 - 48.8 %) 27.1 L MCV (80 - 96 fl) 90.0 MCH (27.0 - 31.0 pg) 29.9 MCHC Differential (32.0 - 36.0 g/dl) 33.2 RDW (10.0 - 14.5 %) 15.7 H Plt Count (172 - 450 K/mm3) 344 MPV (9.0 - 13.0 fl) 11.9 Gran % (Auto) (50 - 80.0 %) 76.2 Gran # (2.0 - 8.00 K/mm3) 5.6 Immature Gran % (0.0 - 0.2 %) 0.1 Lymphocytes % (25.0 - 50.0 %) 12.8 L Monocytes % (2.0 - 10.0 %) 7.6 Eosinophils % (0 - 5.0 %) 2.6 Basophils % (0.0 - 2.0 %) 0.7 Immature Gran # (0.0 - 0.2 K/mm3) 0.0 Lymphocytes # (1.0 - 5.0 K/mm3) 1.0 Monocytes # (0.10 - 1.20 K/mm3) 0.6 Eosinophils # (0.0 - 0.5 K/mm3) 0.2 Basophils # (0.0 - 0.2 K/mm3) 0.1 Labs reviewedHyokalemia resolved but low normal: started KCL 10meq po dailyHypomagnesemia noted will start on daily Mag Oxide 400mg po qdayH/H stable and renal function close to baselineRepeat labs on Friday. Name Value Range Interpretation Code Description Data [facility](s) Supporting Document(s) ID Date Data Source [id number] 02/21/2021 07:21:00 AM [facility] Name Value Range Interpretation Code Description Data [facility](s) Supporting Document(s) MAGNESIUM 1.6 mg/dL 1.8-2.4 [facility] ID Date Data Source [id number] 02/21/2021 07:21:00 AM [facility] Name Value Range Interpretation Code Description Data [facility](s) Supporting Document(s) GLUCOSE 78 mg/dL 74-[address] [facility] BLOOD UREA NITROGEN 36 mg/dL 7-18 H [facility] ital CREATININE 1.44 mg/dL 0.6-1.[address] [facility] SODIUM 144 mmol/L 136-[address] [facility] POTASSIUM 3.7 mmol/L 3.5-5.[address] [facility] CHLORIDE 109 mmol/L 98-[address] [facility] CO2 23 mmol/L 21-[address] [facility] CALCIUM 7.7 mg/dL 8.5-10.1 [facility] ANION GAP 12.0 mmol/L 5-[address] [facility] GLOMERULAR FILTRATION RATE 36 mL/min [facility] GFR IS CALCULATED IN mL/min/1.73m2 TRACY L FUNCTION: >90MILDLY DECREASED: 60-89MILDY TO MODERATELY DECREASED: 45-59 MODERATELY TO SEVERELY DECREASED: 30-44SEVERELY DECREASED: 15-29RENAL FAILURE: <15 AST 13 U/L 15-[address] [facility] ALT 19 U/L 12-[address] [facility] ALKALINE PHOSPHATASE 113 U/L 46-116 [facility] TOTAL BILIRUBIN 0.2 mg/dL 0.2-1.[address] [facility] TOTAL PROTEIN 4.9 g/dl 6.4-8.[address] [facility] ALBUMIN 1.9 gm/dL 3.4-5.[address] [facility] ID Date Data Source [id number] 02/21/2021 07:03:00 AM EDT [facility] Name Value Range Interpretation Code Description Data [facility]lee rce(s) Supporting Document(s) WHITE BLOOD COUNT 7.4 K/mm3 4.0-10.0 [facility] al RED BLOOD COUNT 3.01 M/mm3 4.00-5.50 L [facility] HEMOGLOBIN 9.0 gm/dL 12.0-16.[address] [facility] HEMATOCRIT 27.1 % 36.0-48.[address] [facility] MEAN CELL VOLUME 90.0 fl 80-96 [facility] MEAN CORPUSCULAR HEMOGLOBIN 29.9 pg 27.0-31.0 [facility] MEAN CORPUSCULAR HGB CONC 33.2 g/dl 32.0-36.0 [facility] RED CELL DISTRIBUTION WIDTH 15.7 % 10.0-14.5 H [facility] PLATELET COUNT 344 K/mm3 172-[address] [facility] MEAN PLATELET VOLUME 11.9 fl 9.0-13.0 [facility] GRAN % 76.2 % 50-80.[address] [facility] IG% 0.1 % 0.0-0.[address] [facility] LYMPH % 12.8 % 25.0-50.[address] [facility] MONO % 7.6 % 2.0-10.[address] [facility] EOS % 2.6 % 0-5.[address] [facility] BASO % 0.7 % 0.0-2.[address] [facility] GRAN # 5.6 K/mm3 2.0-8.[address] [facility] IG# 0.0 K/mm3 0.0-0.[address] [facility] LYMPH # 1.0 K/mm3 1.0-5.[address] [facility] MONO # 0.6 K/mm3 0.10-1.[address] [facility] EOS # 0.2 K/mm3 0.0-0.[address] [facility] BASO # 0.1 K/mm3 0.0-0.[address] [facility] ID Date Data Source [id number] 02/20/2021 10:37:00 AM EDT [facility] Name Value Range Interpretation Code Description Data Haylee rce(s) Supporting Document(s) GLUCOSE 97 mg/dL 74-[address] [facility] BLOOD UREA NITROGEN 36 mg/dL 7-18 [facility] CREATININE 1.49 mg/dL 0.6-1.[address] [facility] SODIUM 140 mmol/L 136-[address] [facility] POTASSIUM 4.1 mmol/L 3.5-5.[address] [facility] CHLORIDE 107 mmol/L 98-[address] [facility] CO2 24 mmol/L 21-[address] [facility] CALCIUM 8.2 mg/dL 8.5-10.[address] [facility] ANION GAP 9.0 mmol/L 5-[address] [facility] GLOMERULAR FILTRATION RATE 35 mL/min [facility] GFR IS CALCULATED IN mL/min/1.73m2 TRACY L FUNCTION: >90MILDLY DECREASED: 60-89MILDY TO MODERATELY DECREASED: 45-59 MODERATELY TO SEVERELY DECREASED: 30-44SEVERELY DECREASED: 15-29RENAL FAILURE: <15 ID Date Data Source [id number] 02/18/2021 05:30:00 AM EDT [facility] l In-Patient NoteNote:Vital Signs Date T charity Temp Pulse Resp B/P B/P Pulse O2 O2 Flow FiO2 Mean Ox Delivery Rate 02/15 1945 97.8 72 20 151/66 98 02/15 0901 97.0 61 16 123/62 98 ORIGINAL REPORT DATE OF EXAMINATION: 02/15/2021 11:23 EDT DOP DIANNA UNILATERAL HISTORY: Swelling Right LOWER EXTREMITY VENOUS DOPPLER Duplex scan was performed using B-mode/velázquez scale imaging and Doppler spectralanalysis and color flow. FINDINGS: Common femoral and superficial femoral veins were interrogated throughout theircourse, revealing easy compressibility and appropriate augmentation. Thepopliteal vessels are also easily compressible and show no signs of intraluminalthrombus formation. IMPRESSION: Negative study for deep venous thrombosis in the Right lower extremity. Moderate soft tissue edema. Electronically signed in [id number] by: Cira Hyatt M.D. 02/15/2021 12:05 EDT Mrs Yip has developed swelling in her right lower leg. Obtained Venous ultrasound that came negative Continue compression and elevation. Gen: Alert and oriented x 3 in no acute distressHEENT PERRL/EOMI, normal ENT inspectionNeck normal inspection, non-tender, suppleRespiratory lungs clear, normal breath sounds, no respiratory distressCardiovascular regular rate/rhythm, no JVDPeripheral Pulses3+ carotid (R), 3+ carotid (L), 3+ femoral (R), 3+ femoral (L), 3+ dorsalis pedis (R), 3+ dorsalis pedis (L)Gastrointestinal normal bowel sounds, non tender, soft, no organomegaly, no pulsatile mass, mid line incision w/2 areas of dehiscence appears to be healing per secundam. Remainder incision closure site is clean, intact and no signs of infectionBack normal inspection, no CVA tendernessExtremities normal capillary refill, no calf tenderness, no pedal edema, right forearm prior IV site, mild erythema, warmth and tenderness. No D/c. 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 Artery bypass surgery- here for subacute rehab and wound healing ( two areas of dehiscence within abd midline incision aftyer bowel resection- improving) who developed GI bleed requiring PRBCs transfusion x 2. Mrs. Yip was on Xarelto for her Atrial Fibrillation. As she also has gastric bypass surgery status she was treated withIV Protonix drip and then switched to PO PPIs.She will need GI consult and endoscopic evaluation.She also developed swelling within her right lower extremity- she did have venous doppler that was negative for DvT. Problem List 1. Anemia due to gastrointestinal blood loss A&PThis is NOW stable. Continue iron supplementation. Continue PPIs 2. Gastrointestinal bleed A&PThe patient has had no recurrence. Continue Carafate and omeprazole and monitorfor recurrence. 3. Ambulatory dysfunction A&PShe continues to improve but very slowly. Continue to work with Physical Therapy 4. Debility, unspecified A&PShe continues to improve but very slowly. Continue to work with Physical Therapy 5. History of falling A&PMaintain fall precautions and continue to work on strength and balance. 6. Abdominal wound dehiscence A&PHer 2 abdominal wounds, continue to heal very nicely. 7. Sacral wound A&PThis is also healing with current treatment. Continue foam dressing 8. Paroxysmal atrial fibrillation A&PThe patient is status post ablation. At this point she is currently off Xarelto, due to her GI bleed and anemia 9. Diastolic CHF A&Continue Lasix and beta kristan 10. COPD (chronic obstructive pulmonary disease) A&PContinue maintainance treatments and monitor for exacerbating symptoms 11. Coronary artery disease A&PThe patient has a history of GA. She is currently stable. Continue aspirin, Plavix as well as management of patient's chronic conditions and risk factors. 12. Type 2 diabetes mellitus with hyperglycemia A&PContinue ADA diet. Continue sliding scale insulin coverage. Continue Lantus Insul;in 13. Hypertension A&PContinue Lasix, amlodipine and metoprolol. 14. Hyperlipidemia A&PContinue atorvastatin 15. Chronic kidney disease (CKD) A&PThis remains stable with GFR of 30 16. Prerenal azotemia A&PThis has resolved 17. Severe protein-calorie malnutrition A&PContinue to encourage by mouth intake. Continue protein supplement (Glucerna) and work with dietitian 18. Edema of both lower extremities A&PContinue compression and working on albumin level/.. Continue to try and improve her albumin level. Continue Lasix. 19. Hyponatremia A&PThis has resolved 20. Hyperchloremia A&PFollow- up chloride level 21. Hypokalemia A&PThis has been corrected 22. Elevated alkaline phosphatase level A&PThis is slightly elevated. Continue to follow 23. 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 GERD (gastroesophageal reflux disease) A&PContinue omeprazole and Carafate 25. Hypothyroidism A&PContinue levothyroxine 26. Depression A&PContinue duloxetine 27. Sleep apnea A&PThe patient is no longer on CPAP 28. Glaucoma A&PContinue brimonidine and latanoprost 29. Cellulitis of right arm A&PComplete course of Keflex in 2 days 30. Phlebitis of superficial vein of upper extremity A&PContinue warm soaks, but this has almost completely resolved 31. Gout A&PContinue allopurinol 32. Leg pain A&PContinue gabapentin, duloxetine as well as when necessary Zanaflex 33. Mild cognitive impairment A&P Continue Namenda 34. Constipation A&PContinue Colace IV Access/Tubes/Barrett CatheterIV Access: NONETubes: NoneFoley Catheter: None DVT Prevention: Continue TEDs Xarelto was stopped due to GI bleed Name Value Range Interpretation Code Description Data [facility] rce(s) Supporting Document(s) ID Date Data Source [id number] 02/17/2021 02:00:00 PM EDT [facility] l CHEST, FRONTAL AND LATERAL DATE OF EXAMI NATION: 02/17/2021 11:36 EDT CHEST 2 VIEWS INDICATION: Cough, aspiration COMPARISON: 02/03/2021 TECHNIQUE: Frontal and lateral views of the chest were obtained. FINDINGS: Sternal wires and surgical to visualize. The heart is mildly enlarged.There is right-sided pleural fluid. No pulmonary edema or pneumothorax. IMPRESSION: Right-sided pleural effusion Electronically signed in [id number] by: Jason Flores M.D. 02/17/2021 13:54 EDT Name Value Range Interpretation Code Description Data [facility] rce(s) Supporting Document(s) ID Date Data Source [id number] 02/17/2021 07:24:00 AM EDT [facility] l Name Value Range Interpretation Code Description Data [facility]) GLUCOSE 87 mg/dL 74-[address] [facility] BLOOD UREA NITROGEN 36 mg/dL 7-18 H [facility] ital CREATININE 1.53 mg/dL 0.6-1.[address] [facility] SODIUM 145 mmol/L 136-[address] [facility] POTASSIUM 3.3 mmol/L 3.5-5.[address] [facility] CHLORIDE 110 mmol/L 98-[address] [facility] CO2 25 mmol/L 21-[address] [facility] CALCIUM 8.0 mg/dL 8.5-10.[address] [facility] ANION GAP 10.0 mmol/L 5-[address] [facility] GLOMERULAR FILTRATION RATE 34 mL/min [facility] GFR IS CALCULATED IN mL/min/1.73m2 TRACY L FUNCTION: >90MILDLY DECREASED: 60-89MILDY TO MODERATELY DECREASED: 45-59 MODERATELY TO SEVERELY DECREASED: 30-44SEVERELY DECREASED: 15-29RENAL FAILURE: <15 AST 10 U/L 15-[address] [facility] ALT 19 U/L 12-[address] [facility] ALKALINE PHOSPHATASE 110 U/L 46-116 [facility] TOTAL BILIRUBIN 0.2 mg/dL 0.2-1.[address] [facility] TOTAL PROTEIN 5.5 g/dl 6.4-8.[address] [facility] ALBUMIN 2.0 gm/dL 3.4-5.[address] [facility] ID Date Data Source [id number] 02/17/2021 07:13:00 AM EDT [facility] Name Value Range Interpretation Code Description Data [facility] rce(s) Supporting Document(s) WHITE BLOOD COUNT 6.7 K/mm3 4.0-10.0 [facility] al RED BLOOD COUNT 3.49 M/mm3 4.00-5.50 L [facility] HEMOGLOBIN 10.3 gm/dL 12.0-16.[address] [facility] HEMATOCRIT 31.8 % 36.0-48.[address] [facility] MEAN CELL VOLUME 91.1 fl 80-96 [facility] MEAN CORPUSCULAR HEMOGLOBIN 29.5 pg 27.0-31.0 [facility] MEAN CORPUSCULAR HGB CONC 32.4 g/dl 32.0-36.0 [facility] RED CELL DISTRIBUTION WIDTH 16.2 % 10.0-14.5 H [facility] PLATELET COUNT 385 K/mm3 172-[address] [facility] MEAN PLATELET VOLUME 11.7 fl 9.0-13.0 [facility] GRAN % 70.0 % 50-80.[address] [facility] IG% 0.3 % 0.0-0.[address] [facility] LYMPH % 19.0 % 25.0-50.[address] [facility] MONO % 6.0 % 2.0-10.[address] [facility] EOS % 3.7 % 0-5.[address] [facility] BASO % 1.0 % 0.0-2.[address] [facility] GRAN # 4.7 K/mm3 2.0-8.[address] [facility] IG# 0.0 K/mm3 0.0-0.[address] [facility] LYMPH # 1.3 K/mm3 1.0-5.[address] [facility] MONO # 0.4 K/mm3 0.10-1.[address] [facility] EOS # 0.3 K/mm3 0.0-0.[address] [facility] BASO # 0.1 K/mm3 0.0-0.[address] [facility] ID Date Data Source [id number] 02/16/2021 07:53:00 AM EDT [facility] Name Value Range Interpretation Code Description Data [facility] rce(s) Supporting Document(s) GLUCOSE 80 mg/dL 74-[address] [facility] BLOOD UREA NITROGEN 35 mg/dL 7-18 H [facility] ital CREATININE 1.43 mg/dL 0.6-1.[address] [facility] SODIUM 143 mmol/L 136-[address] [facility] POTASSIUM 3.3 mmol/L 3.5-5.[address] [facility] CHLORIDE 110 mmol/L 98-[address] [facility] CO2 24 mmol/L 21-[address] [facility] CALCIUM 7.9 mg/dL 8.5-10.[address] [facility] ANION GAP 9.0 mmol/L 5-[address] [facility] GLOMERULAR FILTRATION RATE 36 mL/min [facility] GFR IS CALCULATED IN mL/min/1.73m2 TRACY L FUNCTION: >90MILDLY DECREASED: 60-89MILDY TO MODERATELY DECREASED: 45-59 MODERATELY TO SEVERELY DECREASED: 30-44SEVERELY DECREASED: 15-29RENAL FAILURE: <15 AST 14 U/L 15-[address] [facility] ALT 24 U/L 12-[address] [facility] ALKALINE PHOSPHATASE 111 U/L 46-116 [facility] pital TOTAL BILIRUBIN 0.2 mg/dL 0.2-1.[address] [facility] TOTAL PROTEIN 5.3 g/dl 6.4-8.[address] [facility] ALBUMIN 1.9 gm/dL 3.4-5.0 [facility] ID Date Data Source [id number] 02/16/2021 07:35:00 AM EDT [facility] Name Value Range Interpretation Code Description Data [facility] rce(s) Supporting Document(s) WHITE BLOOD COUNT 7.1 K/mm3 4.0-10.0 [facility] RED BLOOD COUNT 3.31 M/mm3 4.00-5.50 L [facility] HEMOGLOBIN 9.7 gm/dL 12.0-16.0 [facility] HEMATOCRIT 30.4 % 36.0-48.[address] [facility] MEAN CELL VOLUME 91.8 fl 80-96 [facility] MEAN CORPUSCULAR HEMOGLOBIN 29.3 pg 27.0-31.0 [facility] MEAN CORPUSCULAR HGB CONC 31.9 g/dl 32.0-36.0 L [facility] RED CELL DISTRIBUTION WIDTH 16.3 % 10.0-14.5 H [facility] PLATELET COUNT 376 K/mm3 172-[address] [facility] MEAN PLATELET VOLUME 11.8 fl 9.0-13.0 [facility] pital GRAN % 71.7 % 50-80.[address] [facility] IG% 0.1 % 0.0-0.[address] [facility] LYMPH % 17.7 % 25.0-50.[address] [facility] MONO % 5.4 % 2.0-10.[address] [facility] EOS % 4.4 % 0-5.[address] [facility] BASO % 0.7 % 0.0-2.[address] [facility] GRAN # 5.1 K/mm3 2.0-8.[address] [facility] IG# 0.0 K/mm3 0.0-0.[address] [facility] LYMPH # 1.3 K/mm3 1.0-5.[address] [facility] MONO # 0.4 K/mm3 0.10-1.[address] [facility] EOS # 0.3 K/mm3 0.0-0.[address] [facility] BASO # 0.1 K/mm3 0.0-0.[address] [facility] ID Date Data Source [id number] 02/15/2021 12:11:00 PM EDT [facility] DATE OF EXAMINATION: 02/15/2021 11:23 EDT DOP DIANNA UNILATERAL HISTORY: Swelling Right LOWER EXTREMITY VENOUS DOPPLER Duplex scan was performed using B- mode/velázquez scale imaging and Doppler spectralanalysis and color flow. FINDINGS: Common femoral and superficial femoral veins were interrogated throughout theircourse, revealing easy compressibility and appropriate augmentation. Thepopliteal vessels are also easily compressible and show no signs of intraluminalthrombus formation. IMPRESSION: Negative study for deep venous thrombosis in the Right lower extremity. Moderate soft tissue edema. Electronic ally signed in [id number] by: Cira Hyatt M.D. 02/15/2021 12:05 EDT Name Value Range Interpretation Code Description Data [facility] rce(s) Supporting Document(s) ID Date Data Source [id number] 02/13/2021 12:04:00 PM EDT [facility] l In-Patient NoteNote:Laboratory Tests 02/12 02/12 0600 1000 Chemistry Sodium (136 - 145 mmol/L) 144 Potassium (3.5 - 5.1 mmol/L) 4.2 Chloride (98 - 107 mmol/L) 110 H Carbon Dioxide (21 - 32 mmol/L) 23 Anion Gap (5 - 12 mmol/L) 11.0 BUN (7 - 18 mg/dL) 32 H Creatinine (0.6 - 1.0 mg/dL) 1.44 H Estimated GFR (MDRD) (mL/min) 36 Glucose (74 - 106 mg/dL) 80 Calcium (8.5 - 10.1 mg/dL) 8.1 L Total Bilirubin (0.2 - 1.0 mg/dL) 0.2 AST (15 - 37 U/L) 11 L ALT (12 - 78 U/L) 25 Alkaline Phosphatase (46 - 116 U/L) 121 H Total Protein (6.4 - 8.2 g/dl) 4.7 L Albumin (3.4 - 5.0 gm/dL) 1.8 L Hematology WBC (4.0 - 10.0 K/mm3) 7.0 RBC (4.00 - 5.50 M/mm3) 3.18 L Hgb (12.0 - 16.0 gm/dL) 9.6 L Hct (36.0 - 48.8 %) 29.0 L MCV (80 - 96 fl) 91.2 MCH (27.0 - 31.0 pg) 30.2 MCHC Differential (32.0 - 36.0 g/dl) 33.1 RDW (10.0 - 14.5 %) 15.9 H Plt Count (172 - 450 K/mm3) 412 Other Body Source Stool Occult Blood (NEGATIVE) NEGATIVE Labs reviewed: CBC: Normocephalic anemia very minimal decrease. Follow-up CBC to trend H&H on Friday. Stool for occult blood negative 1 (patient requested) CMP: Hyperchloremic, improving. Continue, slightly worse. Chronic kidney disease stage III improving. Hyperglycemia resolved. Elevated phosphatase improving. Severe PCM. Recheck chemistries on Friday to trend electrolytes andrenal fun ction. Continue to encourage by mouth intake. Continue glycerin and work with dietitian for patient's PCM. Name Value Range Interpretation Code Description Data [facility] rce(s) Supporting Document(s) ID Date Data Source [id number] 02/12/2021 11:16:00 AM [facility] In-Patient NoteNote:As every day since 01/31/2021 I did inquire about the transfer to [facility] which is patients preference and then [facility] as well. In both facilities there is no possibility of transfer today but I was encouraged to try again tomorrow. I will contact DR Barron tomorrow morning. Name Value Range Interpretation Code Description Data [facility] rce(s) Supporting Document(s) ID Date Data Source [id number] 02/12/2021 11:20:00 AM [facility] Name Value Range Interpretation Code Description Data [facility]lee rce(s) Supporting Document(s) STOOL FOR OCCULT BLOOD NEGATIVE NEGATIVE [facility] ID Date Data Source [id number] 02/12/2021 07:14:00 AM [facility] Name Value Range Interpretation Code Description Data [facility]lee rce(s) Supporting Document(s) GLUCOSE 80 mg/dL 74-[address] [facility] BLOOD UREA NITROGEN 32 mg/dL 7-18 H [facility] ital CREATININE 1.44 mg/dL 0.6-1.[address] [facility] SODIUM 144 mmol/L 136-[address] [facility] POTASSIUM 4.2 mmol/L 3.5-5.[address] [facility] CHLORIDE 110 mmol/L 98-[address] [facility] CO2 23 mmol/L 21-[address] [facility] CALCIUM 8.1 mg/dL 8.5-10.[address] [facility] ANION GAP 11.0 mmol/L 5-[address] [facility] GLOMERULAR FILTRATION RATE 36 mL/min [facility] GFR IS CALCULATED IN mL/min/1.73m2 TRACY L FUNCTION: >90MILDLY DECREASED: 60-89MILDY TO MODERATELY DECREASED: 45-59 MODERATELY TO SEVERELY DECREASED: 30-44SEVERELY DECREASED: 15-29RENAL FAILURE: <15 AST 11 U/L 15-[address] [facility] ALT 25 U/L 12-[address] [facility] ALKALINE PHOSPHATASE 121 U/L 46-116 H [facility] pital TOTAL BILIRUBIN 0.2 mg/dL 0.2-1.[address] [facility] TOTAL PROTEIN 4.7 g/dl 6.4-8.[address] [facility] ALBUMIN 1.8 gm/dL 3.4-5.[address] [facility] ID Date Data Source [id number] 02/12/2021 06:50:00 AM EDT [facility] Name Value Range Interpretation Code Description Data [facility]lee rce(s) Supporting Document(s) WHITE BLOOD COUNT 7.0 K/mm3 4.0-10.0 [facility] al RED BLOOD COUNT 3.18 M/mm3 4.00-5.50 L [facility] HEMOGLOBIN 9.6 gm/dL 12.0-16.[address] [facility] HEMATOCRIT 29.0 % 36.0-48.[address] [facility] MEAN CELL VOLUME 91.2 fl 80-96 [facility] MEAN CORPUSCULAR HEMOGLOBIN 30.2 pg 27.0-31.0 [facility] MEAN CORPUSCULAR HGB CONC 33.1 g/dl 32.0-36.0 [facility] RED CELL DISTRIBUTION WIDTH 15.9 % 10.0-14.5 H [facility] PLATELET COUNT 412 K/mm3 172-[address] [facility] ID Date Data Source [id number] 02/07/2021 02:43:00 PM EDT [facility] See AddendumProgress Note GeneralEn counter:Chart reviewed. Patient interviewed and examined. Labs, medications and orders viewed by me. SubjectiveGeneral Condition:70 yo female seen at bedside, feel her right arm may be some improved.No overnight or nursing issues reported. Denies: f/c/r, h/a, n/v/d, ST, difficulty with swallowing or speech, CP, cough/productive sputum/hemoptysis, CASTANON/SOB, PND, orthopnea, Abdominal/flank pain, dysuria/hematuria, change in bladder or bowel function, hematochezia, melena, bleeding/bruising, new bone/muscle/joint pain, new skin lesions, weight loss or gain. 10 point review of system complete, pertinent positives outlined above. Tolerating PO intake. Voiding fine. BM reported some constipation this mornign, given suppository and will recheck stool for gross hematochezia. ObjectiveNote:Temp; 97.6, Pulse; 73, Resp: 15, B/P: 118/53 SaO2: 97, O2 Status: RA EENT PERRL/EOMI, normal ENT inspectionNeck normal inspection, non-tender, suppleRespiratory lungs clear, normal breath sounds, no respiratory distressCardiovascular regular rate/rhythm, no JVDPeripheral Pulses3+ carotid (R), 3+ carotid (L), 3+ femoral (R), 3+ femoral (L), 3+ dorsalis pedis (R), 3+ dorsalis pedis (L)Gastrointestinal normal bowel sounds, non tender, soft, no organomegaly, no pulsatile mass, mid line incision w/2 areas of dehiscence appears to be healing per secundam. Remainder incision closure site is clean, intact and no signs of infectionBack normal inspection, no CVA tendernessExtremities normal capillary refill, no calf tenderness, no pedal edema, right forearm prior IV site, mild erythema, warmth and tenderness. No D/c. good shuffle board operator and no NV deficitsNeurologic/Psychiatric alert, looper fixer II-XII nml as tested, normal mood/affect, no motor/sensory deficits, oriented x 3Skin normal color, warm/dryLymphatic no adenopathyOther:Laboratory Tests 02/07 0615 Hematology WBC (4.0 - 10.0 K/mm3) 8.5 RBC (4.00 - 5.50 M/mm3) 3.34 L Hgb (12.0 - 16.0 gm/dL) 10.0 L Hct (36.0 - 48.8 %) 30.1 L MCV (80 - 96 fl) 90.1 MCH (27.0 - 31.0 pg) 29.9 MCHC Differential (32.0 - 36.0 g/dl) 33.2 RDW (10.0 - 14.5 %) 16.0 H Plt Count (172 - 450 K/mm3) 319 Current MedicationsAcetaminophen 650 MG Q6H PRN PO FEVER GREATER THAN 101 Acetaminophen 650 MG Q6H PRN PO PAIN MILD (1-08/02) Albuterol/Ipratropium 3 ML Q6H.RT IH Allopurinol 100 MG DAILY PO Amlodipine Besylate 5 MG DAILY PO Aspirin 81 MG DAILY PO (UNVr) - restarted todayAtorvastatin Calcium 10 MG DAILY PO Brimonidine Tartrate 2 DROP DAILY OU Calcium Carbonate 1,000 MG Q6H PRN PO INDIGESTION Cephalexin 500 MG BID PO Clopidogrel Bisulfate 75 MG DAILY PO (UNVr) Clopidogrel Bisulfate 75 MG DAILY PO - restarted today Docusate Sodium 100 MG BID PO Duloxetine HCl 60 MG HS PO Ferrous Sulfate 325 MG DAILY PO Gabapentin 400 MG TID PO Insulin Aspart 1 UNIT ACHS SC Insulin Glargine 6 U BID SC Levothyroxine Sodium 50 MCG DAILY@0600 PO Memantine 10 MG BID PO Metoprolol Succinate 25 MG DAILY 2100 PO Multivitamins 1 TAB DAILY PO Nitroglycerin 0.4 MG Q5M PRN SL CHEST PAIN Nutritional Formula (Lactose Free) 1 CAP DAILY@1400 PO Omeprazole 40 MG BID PO (UNVr) Ondansetron HCl 4 MG Q4H PRN PO NAUSEA/VOMITING on hold - Rivaroxaban 15 MG DAILY 1700 PO -on hold Sodium Chloride 5 ML QID PRN IV Flush Sodium Chloride USE 1 SPRAY IN EACH NOSTRIL Q4H PRN NS NASAL DRYNESS Sucralfate 1 GM ACHS PO (NF) ammonium lactate 10% 1 HADLEY DAILY PRN TOP DRY SKIN (NF) latanoprost 0.005% 2 DROP HS OU (NF) zanaflex 2 MG BID PRN PO SPASTICITY Vital Signs-Last Result Date Time Pulse Ox 97 02/07 0711 B/P 118/53 02/07 0711 Temp 97.6 02/07 0711 Pulse 73 02/07 0711 Resp 15 02/07 0711 Assessm ent/PlanAllergiesCoded Allergies:captopril (01/15/21) Problem List 1. Anemia due to gastrointestinal blood loss A&PD/t COVID and limited bed availability we were unsuccessful in transferring her to [facility] last week. --would have preferred to have been able to transfer back to [facility] where her surgeon was, but no availability at any of the [facility].None the less, she appears to have resolved the issues with GI bleed, her H/H remain stable for 72hrs and no further need for transfusion.She has had some positive FOBT but no gross hematochezia - this could be a falsepositive since she is on Oral FeSO4.We've made contact with her GI office in [place] -Dr. Auguste and Ms Tamarian, and they are attempting to schedule her for OP endoscopy. 2. Gastrointestinal bleed A&Plikely resolved for time being and no indication for transfusion for last 3 days.Will continue to monitor her clinicallychanging her Protonix drip to PO Omeprazole 40mg bid today and c/w CarafateWill repeat labs on friday (sooner if symptoms occur) 3. History of falling A&Pc/w gait trainging/stregthening with PT 4. Ambulatory dysfunction A&Pas outlined, gait training/stregthening and encouraged to walk with PT and nursing. 5. Debility, unspecified A&Pappreciate input from PT, still requiring ongoing therapy.See PT note. 6. Abdominal wound dehiscence A&Pfinished Doxywound appears to be healing wellc/t monitor 7. Sacral wound A&Phealing well per nursingmonitor as neededI suspect this will continue to improve as she improves ambulation and can off load the sacrum better through out the day 8. Paroxysmal atrial fibrillation A&Ps/p ablationRate controlled with metoprolol AC with Eliquis - currently on hold, could consider resuming next week if still no signs of GI bleed 9. Diastolic CHF A&Pshe appears compensatedc/t monitor fluid statusc/w Lasix 20mg po bid and KCL for potassium repleatment 10. COPD (chronic obstructive pulmonary disease) A&PstableNot O2 and not steroid dependentc/w nebs/inhalers prn 11. Type 2 diabetes mellitus A&Pconsistent carb dietFSBS AChs with ssi and levemir 12. Hypertension A&Pc/w metoprolol, amlodipine and Lasix with hold parametersHold: hydralazine and isradipine and monitor BP readings-likey can start to reintroduce hydralazine and isradipine slowly with hold parameters next 1-2 days 13. Hyperlipidemia A&Pc/w lipitor 14. Coronary artery disease A&PStableWithout complaints of chest pain or cardiac equivalent symptomsprior GI bleed looks to be stable: resume aspirin and Plavix and monitor-c/w prn sublingual nitroglycerin 15. Chronic kidney disease (CKD) A&PCK D stage IIISerum creatinine is baselineContinue to monitor and avoid unnecessary nephrotoxinsFollow-up with Dr. Lira as an outpatient 16. Depression A&PStableContinue duloxetine 17. Chronic anemia A&Ph/o IDAcurrently on Ferrous Sulfate-This could result in false positivity of FOBTc/t monitor as outlined above regarding GI bleed. 18. Glaucoma A&PContinue brimonidine and Latanoprost oph drops 19. GERD (gastroesophageal reflux disease) A&Pchange from protonix drip to omeprazole 40mg bid and c/w carafate 20. History of GA (myocardial infarction) A&PNo chest pain or cardiac equivalent symptoms. 21. Sleep apnea A&POkay to use home CPAP machine 22. Mesenteric artery stenosis A&Ps/p stent placementResume plavix and ASA and monitor for GI bleed 23. Hypothyroidism A&PStableContinue levothyroxine 24. Gout A&PStable continue allopurinol 25. Leg pain A&PLikely secondary to diabetic neuropathyContinue gabapentin and Zanaflex for back spasms 26. Mild cognitive impairment A&PContinue memantine 27. UTI (urinary tract infection) A&PResolved 28. Cellulitis of right arm A&Pc/w Keflex 29. Phlebitis of superficial vein of upper extremity A&Pwarm compresses and symtomatic therapy as needed Disposition PlanC/w Subacute RehabAnticipated Discharge: TBD, pending improvement and appreciate input from case management and PT IV Access/Tubes/Barrett CatheterIV Access: d/c PIVTubes: noneFoley Catheter: none VTE ProphylaxisVTE Prophylaxis: hold Xarelto, will restart Plavix and ASA and encouraged to ambulate with PT and Nursing. ADDENDUM: 02/07/21 1443 ADDENDUM: Jose Magaña DO on 02/07/21 at 1441 FOBT this afternoon is now resulting negative for occ blood.C/w plavix and ASA and consider re-introducing Xarelto on friday. Name Value Range Interpretation Code Description [facility] Supporting Document(s) ID Date Data Source [id number] 02/07/2021 12:51:00 PM EDT [facility] Name Value Range Interpretation Code Description Data [facility] Supporting Document(s) STOOL FOR OCCULT BLOOD NEGATIVE NEGATIVE # [facility] ID Date Data Source [id number] 02/07/2021 06:35:00 AM EDT [facility] Name Value Range Interpretation Code Description Data Haylee e(s) Supporting Document(s) WHITE BLOOD COUNT 8.5 K/mm3 4.0-10.0 [facility] RED BLOOD COUNT 3.34 M/mm3 4.00-5.50 L [facility] HEMOGLOBIN 10.0 gm/dL 12.0-16.[address] [facility] HEMATOCRIT 30.1 % 36.0-48.[address] [facility] MEAN CELL VOLUME 90.1 fl 80-96 [facility] MEAN CORPUSCULAR HEMOGLOBIN 29.9 pg 27.0-31.0 [facility] MEAN CORPUSCULAR HGB CONC 33.2 g/dl 32.0-36.0 [facility] RED CELL DISTRIBUTION WIDTH 16.0 % 10.0-14.5 H [facility] PLATELET COUNT 319 K/mm3 172-[address] [facility] ID Date Data Source [id number] 02/06/2021 03:41:00 PM EDT [facility] See AddendumProgress Note GeneralEn counter:Chart reviewed. Patient interviewed and examined. Labs, medications and orders viewed by me. SubjectiveGeneral Condition:70yo female seen at bedside with c/o left hip pain.PT related that the patient says she fell/gently went down on her left leg last and has had worse pain since. Limited weight bearing this morning d/t pain with hip flexion.She also remains on a protonix drip for now and blood thinners remain off d/t GIbleed over the weekend requiring blood transfusions.Attempt was made to transfer to tertiary center d/t recent mesenteric ischemia/bowel resection and stent placement.No beds remain available at the [facility] in [place] again this [facility] and no beds available at [facility] where her GI Dr. Auguste practices.No overnight or nursing issues reported. Denies: f/c/r, h/a, n/v/d, ST, difficulty with swallowing or speech, CP, cough/productive sputum/hemoptysis, CASTANON/SOB, PND, orthopnea, Abdominal/flank pain, dysuria/hematuria, change in bladder or bowel function, hematochezia, melena, bleeding/bruising, new skin lesions, weight loss or gain. 10 point review of system complete, pertinent positives outlined above. Tolerating PO intake. Voiding fine. BM reported this morning, no reported BRBPR ObjectiveNote:Temp; 97.2, Pulse; 69, Resp: 16, B/P: 127/51 SaO2: 98, O2 Status: RA EENT PERRL/EOMI, normal ENT inspectionNeck normal inspection, non-tender, suppleRespiratory lungs clear, no respiratory distressCardiovascular regular rate/rhythm, no JVDPeripheral Pulses3+ carotid (R), 3+ carotid (L), 3+ femoral (R), 3+ femoral (L), 3+ dorsalis pedis (R), 3+ dorsalis pedis (L)Gastrointestinal normal bowel sounds, non tender, soft, mid line incision w/ 2 areas of dehiscence appears to continue to heal per secundam. remainder of incision is clean and no signs of infection.Back normal inspection, no CVA tendernessExtremities no calf tenderness, no pedal edema, vague pain with flexion of the Left hip. no tenderness of the groin/inguinal area, LLQ of abdomen or lateral hip/IT band abdomen, Neurologic/Psychiatric alert, looper fixer II-XII nml as tested, normal mood/affect, no motor/sensory deficits, oriented x 3Skin normal color, warm/dryLymphatic no adenopathyOther:Laboratory Tests 02/05 0745 Chemistry Sodium (136 - 145 mmol/L) 142 Potassium (3.5 - 5.1 mmol/L) 4.3 Chloride (98 - 107 mmol/L) 111 H Carbon Dioxide (21 - 32 mmol/L) 21 Anion Gap (5 - 12 mmol/L) 10.0 BUN (7 - 18 mg/dL) 31 H Creatinine (0.6 - 1.0 mg/dL) 1.67 H Estimated GFR (MDRD) (mL/min) 30 Glucose (74 - 106 mg/dL) 126 H Calcium (8.5 - 10.1 mg/dL) 8.2 L Total Bilirubin (0.2 - 1.0 mg/dL) 0.2 AST (15 - 37 U/L) 30 ALT (12 - 78 U/L) 49 Alkaline Phosphatase (46 - 116 U/L) 140 H Total Protein (6.4 - 8.2 g/dl) 4.9 L Albumin (3.4 - 5.0 gm/dL) 1.8 L Hematology WBC (4.0 - 10.0 K/mm3) 7.7 RBC (4.00 - 5.50 M/mm3) 3.60 L Hgb (12.0 - 16.0 gm/dL) 10.6 L Hct (36.0 - 48.8 %) 32.1 L MCV (80 - 96 fl) 89.2 MCH (27.0 - 31.0 pg) 29.4 MCHC Differential (32.0 - 36.0 g/dl) 33.0 RDW (10.0 - 14.5 %) 15.9 H Plt Count (172 - 450 K/mm3) 266 MPV (9.0 - 13.0 fl) 11.9 Gran % (Auto) (50 - 80.0 %) 76.3 Gran # (2.0 - 8.00 K/mm3) 5.9 Immature Gran % (0.0 - 0.2 %) 0.3 H Lymphocytes % (25.0 - 50.0 %) 12.7 L Monocytes % (2.0 - 10.0 %) 5.8 Eosinophils % (0 - 5.0 %) 4.4 Basophils % (0.0 - 2.0 %) 0.5 Immature Gran # (0.0 - 0.2 K/mm3) 0.0 Lymphocytes # (1.0 - 5.0 K/mm3) 1.0 Monocytes # (0.10 - 1.20 K/mm3) 0.5 Eosinophils # (0.0 - 0.5 K/mm3) 0.3 Basophils # (0.0 - 0.2 K/mm3) 0.0 Current MedicationsAcetaminophen 650 MG Q6H PRN PO FEVER GREATER THAN 101 Acetaminophen 650 MG Q6H PRN PO PAIN MILD (1-3/10) Albuterol/Ipratropium 3 ML Q6H.RT IH Allopurinol 100 MG DAILY PO Atorvastatin Calcium 10 MG DAILY PO Brimonidine Tartrate 2 DROP DAILY OU Calcium Carbonate 1,000 MG Q6H PRN PO INDIGESTION Ceftriaxone Sodium 2 GM Q24H IVPB Sodium Chloride 100 MLClopidogrel Bisulfate 75 MG DAILY PO (DA) Docusate Sodium 100 MG BID PO Duloxetine HCl 60 MG HS PO Ferrous Sulfate 325 MG DAILY PO Gabapentin 400 MG TID PO Insulin Aspart 1 UNIT ACHS SC Insulin Glargine 6 U BID SC Levothyroxine Sodium 50 MCG DAILY@0600 PO Memantine 10 MG BID PO Metoprolol Succinate 25 MG DAILY 2100 PO Multivitamins 1 TAB DAILY PO Nitroglycerin 0.4 MG Q5M PRN SL CHEST PAIN Nutritional Formula (Lactose Free) 1 CAP DAILY@1400 PO Ondansetron HCl 4 MG Q4H PRN PO NAUSEA/VOMITING Pantoprazole Sodium 80 MG .Q10H IVPB Sodium Chloride 100 MLRivaroxaban 15 MG DAILY 1700 PO (DA) Sodium Chloride 5 ML QID PRN IV Flush Sodium Chloride USE 1 SPRAY IN EACH NOSTRIL Q4H PRN NS NASAL DRYNESS Sucralfate 1 GM ACHS PO (NF) ammonium lactate 10% 1 HADLEY DAILY PRN TOP DRY SKIN (NF) latanoprost 0.005% 2 DROP HS OU (NF) zanaflex 2 MG BID PRN PO SPASTICITY Vital Signs Date Time Temp Pulse Resp B/P B/P Pulse O2 O2 Flow FiO2 Mean Ox Delivery Rate 02/05 0800 97.2 69 16 127/51 98 02/04 2100 97.8 72 18 161/75 100 ConsultationConsultationphone consultation with Ms Hemanth PEREZ (Dr. Auguste's office) offerred to review the chart and since patient's labs appear stable off blood thinners, could consider OP endonscopy.she will get back to us. Assessment/PlanAllergiesCoded Allergies:captopril (01/15/21) Problem List 1. Anemia due to gastrointestinal blood loss A&Pblood thinners heldc/w IV protonix for another 24hrsc/w po Carafateh/h appears stable and no further transfusions required.repeat h/h in a.m. 2. Gastrointestinal bleed A&Pas outlinedno beds available to transfer d/t severe bed shortage through out the region.Discussed case with Dr. Brown's office-pateint currently appears hemodyna mically stable and remains off blood thinnersan on IV protonix-Ms Hemanth Dietz to review chart and likley discuss with Dr. Auguste for possible OP endoscopy if she remains stable.Will plan to follow up labs and with Dr Auguste's office tomorrow if no word thisafternoon.Plan discussed with patient and her sister by phone, they are agreeable to continue with plan as outlined. 3. History of falling A&Pc/t work with PT regarding stregthening and gait training 4. Ambulatory dysfunction A&Pc/t work with PT regarding stregthening and gait traininguse walker as indicated 5. Debility, unspecified A&Phere for Subacute rehabc/w PT/OT and nursing care 6. Abdominal wound dehiscence A&Pfinished Doxywound appears to be healing wellc/t monitor 7. Sacral wound A&Phealing well per nursingmonitor as neededI suspect this will continue to improve as she improves ambulation and can off load the sacrum better through out the day 8. Paroxysmal atrial fibrillation A&Ps/p ablationRate controlled with metoprolol AC with Eliquis -currently on hold 9. Diastolic CHF A&Pshe appears compensatedc/t monitor fluid statusc/w Lasix 20mg po bid and KCL for potassium repleatment 10. COPD (chronic obstructive pulmonary disease) A&PstableNot O2 and not steroid dependentc/w nebs/inhalers prn 11. Type 2 diabetes mellitus A&Pconsistent carb dietFSBS AChs with ssi and levemir 12. Hypertension A&Pc/w metoprolol with hold parametersHold: amlodipine, lasix, hydralazine and isradipine and monitor BP readings-likey resume meds with hold parameters next 1-2 days 13. Hyperlipidemia A&Pc/w lipitor 14. Coronary artery disease A&PStableWithout complaints of chest pain or cardiac equivalent symptoms- currently holding: aspirin and Plavix d/t recent GI bleed-c/w prn sublingual nitroglycerin 15. Chronic kidney disease (CKD) A&PCK D stage IIISerum creatinine is baselineContinue to monitor and avoid unnecessary nephrotoxinsFollow-up with Dr. Lira as an outpatient 16. Depression A&PStableContinue duloxetine 17. Chronic anemia A&Ph/o IDAcurrently on Ferrous Sulfate-This could result in false positivity of FOBTc/t monitor as outlined above regarding GI bleed. 18. Glaucoma A&PContinue brimonidine and Latanoprost oph drops 19. GERD (gastroesophageal reflux disease) A&PProtonix drip for another 24-48 hrs, then transition back to po PPI if no further GI bleed and h/h stable 20. History of GA (myocardial infarction) A&PNo chest pain or cardiac equivalent symptoms. 21. Sleep apnea A&POkay to use home CPAP machine 22. Mesenteric artery stenosis A&Ps/p stent placementhold: plavix and ASA for now d/t GI bleed 23. Hypothyroidism A&PStableContinue levothyroxine 24. Gout A&PStable continue allopurinol 25. Leg pain A&PLikely secondary to diabetic neuropathyContinue gabapentin and Zanaflex for back spasms 26. Mild cognitive impairment A&PContinue memantine 27. UTI (urinary tract infection) A&Psymptoms resolvedno UC resultsWill d/c IV Rocephin Disposition PlanAnticipated Discharge: tbd, discussions with family and patient regarding possible OP colonoscopy through Dr. Auguste's officec/t work with nursing and PT regarding stregthening and gait training, likely will need home d/c with services.appreciate input from case management. IV Access/Tubes/Barrett CatheterIV Access: PIVTubes: noneFoley Catheter: none VTE ProphylaxisVTE Prophylaxis: AC and blood thinners on hold d/t Recent GI bleed, encouraged to ambulate as tolerated ADDENDUM: 02/06/21 1541 ADDENDUM: Jose Magaña DO on 02/06/21 at 1530 RIGHT FOREARM SUPERFICIAL THROMBOSIS:Prior IV Site reported to have had mild purulent d/c by nursing other night. None currently and no culture performed at the time.u/S confirmed and negative for DVT or abscessShe has a reddened/erythematous area of the prior IV site, prior low grade feverovernight - will treat with warm compresses as tolerated, tylenol for pain and Keflex 500mg bid for 7 days Name Value Range Interpretation Code Description Data Haylee rce(s) Supporting Document(s) ID Date Data Source [id number] 02/06/2021 02:55:00 PM EDT [facility] DATE OF EXAMINATION: 02/06/2021 14:18 EDT EXTREMITY LIMITED HISTORY: Pain. Evaluate for abscess. ULTRASOUND RIGHT forearm Real-time ultrasound imaging was performed utilizing B-mode/velázquez scale and colorDoppler imaging where applicable. FINDINGS: There are no fluid collections or any evidence for abscess formation.Superficial venous thrombus is noted. Diffuse soft tissue edema seen. IMPRESSION: Superficial venous thrombosis. No abscess formation. Electronically signed in [id number] by: Cira Hyatt M.D. 02/06/2021 14:50 EDT Name Value Range Interpretation Code Description Data Haylee rce(s) Supporting Document(s) ID Date Data Source [id number] 02/06/2021 09:48:00 AM EDT [facility] Name Value Range Interpretation Code Description Data Haylee rce(s) Supporting Document(s) WHITE BLOOD COUNT 7.7 K/mm3 4.0-10.0 [facility] al RED BLOOD COUNT 3.28 M/mm3 4.00-5.50 L [facility] HEMOGLOBIN 9.8 gm/dL 12.0-16.[address] [facility] HEMATOCRIT 29.9 % 36.0-48.[address] [facility] MEAN CELL VOLUME 91.2 fl 80-96 [facility] MEAN CORPUSCULAR HEMOGLOBIN 29.9 pg 27.0-31.0 [facility] MEAN CORPUSCULAR HGB CONC 32.8 g/dl 32.0-36.0 [facility] RED CELL DISTRIBUTION WIDTH 16.3 % 10.0-14.5 H [facility] PLATELET COUNT 301 K/mm3 172-[address] [facility] ID Date Data Source [id number] 02/05/2021 12:24:00 PM EDT [facility] DATE OF EXAMINATION: 02/05/2021 9:33 EDT HISTORY: Pain TECHNIQUE: 2 views of the left hip were obtained. FINDINGS: Bones are mildly osteopenic. Mild osteoarthritis is noted. There is no fractureor dislocation. Moderate arterial calcination is seen. IMPRESSION: Mild osteopenia and osteoarthritis. Moderate arterial calcification. Electronically signed in [id number] by: Cira Hyatt M.D. 02/05/2021 12:19 EDT Name Value Range Interpretation Code Description Data Haylee rce(s) Supporting Document(s) ID Date Data Source [id number] 02/05/2021 08:17:00 AM EDT [facility] Name Value Range Interpretation Code Description Data Haylee rce(s) Supporting Document(s) GLUCOSE 126 mg/dL 74-[address] [facility] BLOOD UREA NITROGEN 31 mg/dL 7-18 H [facility] ital CREATININE 1.67 mg/dL 0.6-1.[address] [facility] SODIUM 142 mmol/L 136-[address] [facility] POTASSIUM 4.3 mmol/L 3.5-5.[address] [facility] CHLORIDE 111 mmol/L 98-[address] [facility] CO2 21 mmol/L 21-[address] [facility] CALCIUM 8.2 mg/dL 8.5-10.[address] [facility] ANION GAP 10.0 mmol/L 5-[address] [facility] GLOMERULAR FILTRATION RATE 30 mL/min [facility] GFR IS CALCULATED IN mL/min/1.73m2 TRACY L FUNCTION: >90MILDLY DECREASED: 60-89MILDY TO MODERATELY DECREASED: 45-59 MODERATELY TO SEVERELY DECREASED: 30-44SEVERELY DECREASED: 15-29RENAL FAILURE: <15 AST 30 U/L 15-[address] [facility] ALT 49 U/L 12-[address] [facility] ALKALINE PHOSPHATASE 140 U/L 46-116 H [facility] TOTAL BILIRUBIN 0.2 mg/dL 0.2-1.[address] [facility] TOTAL PROTEIN 4.9 g/dl 6.4-8.[address] [facility] ALBUMIN 1.8 gm/dL 3.4-5.0 [facility] ID Date Data Source [id number] 02/05/2021 07:59:00 AM EDT [facility] Name Value Range Interpretation Code Description Data Haylee rce(s) Supporting Document(s) WHITE BLOOD COUNT 7.7 K/mm3 4.0-10.0 [facility] al RED BLOOD COUNT 3.60 M/mm3 4.00-5.50 L [facility] HEMOGLOBIN 10.6 gm/dL 12.0-16.0 [facility] HEMATOCRIT 32.1 % 36.0-48.[address] [facility] MEAN CELL VOLUME 89.2 fl 80-96 [facility] MEAN CORPUSCULAR HEMOGLOBIN 29.4 pg 27.0-31.0 [facility] MEAN CORPUSCULAR HGB CONC 33.0 g/dl 32.0-36.0 [facility] RED CELL DISTRIBUTION WIDTH 15.9 % 10.0-14.5 H [facility] PLATELET COUNT 266 K/mm3 172-[address] [facility] MEAN PLATELET VOLUME 11.9 fl 9.0-13.0 [facility] pital GRAN % 76.3 % 50-80.[address] [facility] IG% 0.3 % 0.0-0.[address] [facility] LYMPH % 12.7 % 25.0-50.[address] [facility] MONO % 5.8 % 2.0-10.[address] [facility] EOS % 4.4 % 0-5.[address] [facility] BASO % 0.5 % 0.0-2.[address] [facility] GRAN # 5.9 K/mm3 2.0-8.[address] [facility] IG# 0.0 K/mm3 0.0-0.[address] [facility] LYMPH # 1.0 K/mm3 1.0-5.[address] [facility] MONO # 0.5 K/mm3 0.10-1.[address] [facility] EOS # 0.3 K/mm3 0.0-0.[address] [facility] BASO # 0.0 K/mm3 0.0-0.[address] [facility] ID Date Data Source [id number] 02/04/2021 01:14:00 PM EDT [facility] Progress Note GeneralEncounter:Chart re viewed. Patient interviewed and examined. Labs, medications and orders viewed by me. SubjectiveGeneral Condition:Mrs Yip is a delightful 70 year old patient who while recovering here fromher recent mesenteric artery occlusion and bowel ischemia that resulted in bowelresection and mesenteric artery bypas surgery 12/31/2020 Dr Barron-developed gastrointestinal bleed.Mrs Yip has dropped her H&H first on 01/31. She waspositive for occult blood and we started PRBCs and CARAFATE.We did discontinue her antiplatelet agents as well as Xarelto ( paroxysmal atrial fibrillation).Today there is another drop in H&H abd Mrs Yip is still guaiac positive. She is getting 2 units of PRBCs and we are starting her on Protonix drip.We are contacting tertiary care centers on a daily basis to try to get the patient to a facility where she can get specialty care. As of now there is no beds available and patients are waiting for days in emergency department for bedavailability. I did notify Vascular Surgeon who was covering for Dr Barron today to inform him about that situation.I did talk to the patient and to her sister Shantel about that issue.Mrs Yip needs GI and surgical consult to localize and treat the origin of her blood loss. ObjectiveNote:Temp; 97.8, Pulse; 68, Resp: 18, B/P: 123/58 SaO2: 98, O2 Status: EENT PERRL/EOMI, normal ENT inspectionNeck normal inspection, non-tender, suppleRespiratory chest non- tender, lungs clear, normal breath sounds, no respiratory distress, no accessory muscle useCardiovascular regular rate/rhythm, no edema, no gallop, no JVD, no murmurGastrointestinal normal bowel sounds, non tender, soft, no organomegaly, no pulsatile mass, THe midline incision has two areas of dehiscence that are healing per secundam. The rest of the incision is healed. There is no signs of infection.Back normal inspection, no CVA tendernessExtremities non-tender, normal range of motion, normal inspection, normal capillary refill, no calf tenderness, no pedal edemaSkin normal color, warm/dryLymphatic no adenopathy Assessment/PlanAllergiesCoded Allergies:captopril (01/15/21) Additional NotesASSESSMENT AND PLAN:70 year old female recovering from ischemic bowel resection and mesenteric artery bypass Dr Barron 12/31/2020 who developed GI bleed.There is no bed availability at this point. Calling [facility] and [facility] on a daily basis since 01/31. Spoke with a vascular surgeon who was covering for Dr Barron over the weekend. Started Protonix drip, transfusing 2 units of PRBCS. I was advised to call [facility] tomorrow.Current MedicationsAcetaminophen 650 MG Q6H PRN PO FEVER GREATER THAN 101 Acetaminophen 650 MG Q6H PRN PO PAIN MILD (1-3/10) Albuterol/Ipratropium 3 ML Q6H.RT IH Allopurinol 100 MG DAILY PO Atorvastatin Calcium 10 MG DAILY PO Brimonidine Tartrate 2 DROP DAILY OU Calcium Carbonate 1,000 MG Q6H PRN PO INDIGESTION Ceftriaxone Sodium 2 GM Q24H IVPB Sodium Chloride 100 ML Docusate Sodium 100 MG BID PO Duloxetine HCl 60 MG HS PO Ferrous Sulfate 325 MG DAILY PO Gabapentin 400 MG TID PO Insulin Aspart 1 UNIT ACHS SC Insulin Glargine 6 U BID SC Levothyroxine Sodium 50 MCG DAILY@0600 PO Memantine 10 MG BID PO Metoprolol Succinate 25 MG DAILY 2100 PO Multivitamins 1 TAB DAILY PO Nitroglycerin 0.4 MG Q5M PRN SL CHEST PAIN Nutritional Formula (Lactose Free) 1 CAP DAILY@1400 PO Ondansetron HCl 4 MG Q4H PRN PO NAUSEA/VOMITING Pantoprazole Sodium 80 MG .Q10H IVPB Sodium Chloride 100 ML Sodium Chloride 5 ML QID PRN IV Flush Sodium Chloride USE 1 SPRAY IN EACH NOSTRIL Q4H PRN NS NASAL DRYNESS Sucralfate 1 GM ACHS PO (NF) ammonium lactate 10% 1 HADLEY DAILY PRN TOP DRY SKIN (NF) latanoprost 0.005% 2 DROP HS OU (NF) zanaflex 2 MG BID PRN PO SPASTICITY Vital Signs 02/03 02/04 1946 0706 Temp 98.2 97.8 Pulse 76 68 Resp 16 18 B/P 139/54 123/58 B/P Mean Pulse Ox 96 98 O2 Delivery O2 Flow Rate FiO2 Name Value Range Interpretation Code Description Data Haylee rce(s) Supporting Document(s) ID Date Data Source [id number] 02/04/2021 08:54:00 AM [facility] l Name Value Range Interpretation Code Description Data Haylee rce(s) Supporting Document(s) STOOL FOR OCCULT BLOOD POSITIVE NEGATIVE [facility] ID Date Data Source [id number] 02/04/2021 06:26:00 AM T [facility] l Name Value Range Interpretation Code Description Data Haylee rce(s) Supporting Document(s) WHITE BLOOD COUNT 7.5 K/mm3 4.0-10.0 [facility] al RED BLOOD COUNT 3.21 M/mm3 4.00-5.50 L [facility] HEMOGLOBIN 9.6 gm/dL 12.0-16.[address] [facility] HEMATOCRIT 28.1 % 36.0-48.[address] [facility] MEAN CELL VOLUME 87.5 fl 80-96 [facility] MEAN CORPUSCULAR HEMOGLOBIN 29.9 pg 27.0-31.0 [facility] MEAN CORPUSCULAR HGB CONC 34.2 g/dl 32.0-36.0 [facility] RED CELL DISTRIBUTION WIDTH 15.4 % 10.0-14.5 H [facility] PLATELET COUNT 205 K/mm3 172-[address] [facility] MEAN PLATELET VOLUME 12.3 fl 9.0-13.0 [facility] pital GRAN % 73.7 % 50-80.[address] [facility] IG% 0.1 % 0.0-0.[address] [facility] LYMPH % 15.3 % 25.0-50.[address] [facility] MONO % 5.6 % 2.0-10.[address] [facility] EOS % 4.9 % 0-5.[address] [facility] BASO % 0.4 % 0.0-2.[address] [facility] GRAN # 5.5 K/mm3 2.0-8.[address] [facility] IG# 0.0 K/mm3 0.0-0.[address] [facility] LYMPH # 1.2 K/mm3 1.0-5.[address] [facility] MONO # 0.4 K/mm3 0.10-1.[address] [facility] EOS # 0.4 K/mm3 0.0-0.[address] [facility] BASO # 0.0 K/mm3 0.0-0.[address] [facility] ID Date Data Source [id number] 02/04/2021 06:18:00 AM EDT [facility] Name Value Range Interpretation Code Description Data Haylee rce(s) Supporting Document(s) GLUCOSE 135 mg/dL 74-[address] [facility] BLOOD UREA NITROGEN 42 mg/dL 7-18 H [facility] ital CREATININE 1.69 mg/dL 0.6-1.[address] [facility] SODIUM 137 mmol/L 136-[address] [facility] [facility] POTASSIUM 3.3 mmol/L 3.5-5.[address] [facility] CHLORIDE 107 mmol/L 98-[address] [facility] CO2 19 mmol/L 21-[address] [facility] CALCIUM 8.0 mg/dL 8.5-10.[address] [facility] ANION GAP 11.0 mmol/L 5-[address] [facility] GLOMERULAR FILTRATION RATE 30 mL/min [facility] GFR IS CALCULATED IN mL/min/1.73m2 TRACY L FUNCTION: >90MILDLY DECREASED: 60-89MILDY TO MODERATELY DECREASED: 45-59 MODERATELY TO SEVERELY DECREASED: 30-44SEVERELY DECREASED: 15-29RENAL FAILURE: <15 AST 35 U/L 15-[address] [facility] ALT 51 U/L 12-[address] [facility] ALKALINE PHOSPHATASE 126 U/L 46-116 H [facility] pital TOTAL BILIRUBIN 0.2 mg/dL 0.2-1.[address] [facility] TOTAL PROTEIN 5.0 g/dl 6.4-8.[address] [facility] ALBUMIN 1.6 gm/dL 3.4-5.[address] [facility] ID Date Data Source [id number] 02/04/2021 04:41:00 AM EDT [facility] Progress Note GeneralEncounter:Chart re viewed. Patient interviewed and examined. Labs, medications and orders viewed by me. SubjectiveGeneral Condition:As mentioned in the two separate notes from 01/31/2021 Mrs Yip had a drop in her Hb yesterday morning and she was transfused with one unit of PRBCs. She did tolerate her transfusion well. In the late evening she did develop chills and fever.Urine and blood CTX were obtained as well as Resp Panel.Patient was given gentle IV hydration , her fever was treated and she did receive 2 g of Ceftriaxone. She had no other symptoms then chills and fever. She denies any headache, difficulty with speech or swallowing, facial droop/focal neurological weakness, visual changes/disturbance/eye pain, sore throat, n/v/d, substernal CP, Cough, sputum production, hemoptysis, CASTANON/SOB, PND/orthopnea, abdominal/flank pain, frequency/dysuria/hematuria, change in bowel habits, hematochezia/melena, bone/muscle/joint pain,swelling or deformity, heat/cold intolerance, h/o DM/thyroid disease, bleeding/bruising/rash, ObjectiveNote:Temp; 98.0, Pulse; 58, Resp: 18, B/P: 101/49 SaO2: 100, O2 Status: ENT PERRL/EOMI, normal ENT inspectionNeck normal inspection, non-tender, supple, full range of motionRespiratory lungs clear, normal breath sounds, no respiratory distressCardiovascular regular rate/rhythm, no edema, no JVD, no murmurPeripheral Pulses2+ carotid (R), 2+ carotid (L), 2+ femoral (R), 2+ femoral (L), 2+ dorsalis pedis (R), 2+ dorsalis pedis (L)Gastrointestinal normal bowel sounds, non tender, soft, no organomegaly, no pulsatile mass, Long midline incision has areas of dehiscence that are clean andhave no signs of infection. Back Exam normal inspection, no CVA tenderness, no vertebral tendernessExtremities non-tender, normal range of motion, normal inspection, no calf tenderness, no pedal edemaNeurologic/Psychiatric alert, looper fixer II-XII nml as tested, normal mood/affect, no motor/sensory deficits, oriented x 3Skin normal color, warm/dry. Lymphatic no adenopathy Assessment/PlanAllergiesCoded Allergies:captopril (01/15/21) Additional Notes70 year old woman recoveroing after ischemic bowel resection,Superior mesentericartery bypass, History of Gastric Bypass 2012 with positive occult blood stool and continuous and worsening anemia of blood loss. We continue efforts to transfer the patient to the [facility] to further diagnose and treat her current conditions. Problem List 1. History of bowel resection A&PRecent bowel resection following ischemia related to mesenteric artery stenosis .Patient is tolerating food very well and her abdominal pain and discomfort are now resolved. 2. 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 Pleural effusion A&PRight sided pleural effusion 4. Hyperlipidemia Status Chronic Onset Date Unknown A&PContinue atorvastatin 5. Coronary artery disease Status Chronic Onset Date Unknown A&PStablecomplaints of chest pain or cardiac equivalent symptomsContinue aspirin and Plavixprn sublingual nitroglycerin 6. Chronic kidney disease (CKD) Status Chronic Onset Date Unknown A&PCK D stage IIISerum creatinine is baselineContinue to monitor and avoid unnecessary nephrotoxinsFollow-up with Dr. Lira as an outpatient 7. Depression Status Chronic Onset Date Unknown A&PStableContinue fluoxetine 8. Chronic anemia Status Chronic Onset Date Unknown A&PContinue close monitoring CBC and guaiac all stools 9. Glaucoma Status Chronic Onset Date Unknown A&PContinue brimonidine and Latanoprost oph drops 10. GERD (gastroesophageal reflux disease) Status Chronic Onset Date Unknown A&PContinue Proton Pump Inhibitor and now sucralfate 11. History of GA (myocardial infarction) Status Chronic Onset Date Unknown A&PNo chest pain or cardiac equivalent symptoms. 12. Sleep apnea Status Chronic Onset Date Unknown A&PMrs Distefamo wii continue to use home CPAP machine 13. Hypothyroidism Status Chronic Onset Date Unknown A&PStableContinue levothyroxine 14. Gout Status Chronic Onset Date Unknown A&PStable continue allopurinol 15. Leg pain Status Chronic Onset Date Unknown A&PLikely secondary to diabetic neuropathyContinue gabapentin and Zanaflex for back spasms 16. Mild cognitive impairment Status Chronic Onset Date Unknown A&PContinue memantine Name Value Range Interpretation Code Description Data Haylee rce(s) Supporting Document(s) ID Date Data Source [id number] 02/03/2021 02:26:00 PM EDT [facility] ABDOMEN DATE OF EXAMINATION: 02/03/2021 1 1:40 EDT ABDOMEN (KUB) INDICATION: Pain, ileus COMPARISON: None TECHNIQUE: AP Supine views of the abdomen were obtained. FINDINGS: There are multiple surgical clips and michael in the epigastric regionas well as the right upper quadrant. There is a large amount of stool throughoutthe colon. There is no dilated bowel. No evidence of free air or free fluid. No abnormal soft tissue mass lesions are identified. There are no pathologicalcalcifications. There is a mild scoliotic curve of the spine. IMPRESSION: There is a large amount of stool throughout the colon. There is nodilated bowel. Electronically signed in PS360 by: Jason Flores M.D. 02/03/2021 14:20 EDT Name Value Range Interpretation Code Description [facility] Document(s) ID Date Data Source [id number] 02/03/2021 02:25:00 PM EDT [facility] CHEST, FRONTAL AND LATERAL DATE OF EXAMI NATION: 02/03/2021 11:40 EDT CHEST 2 VIEWS INDICATION: Pneumonia COMPARISON: 01/28/2021 TECHNIQUE: Frontal and lateral views of the chest were obtained. FINDINGS: Sternal wires and surgical to visualize. There is a mild scolioticcurve of the spine. The heart is upper normal in size. The aorta isatherosclerotic. There is right-sided pleural fluid with minimal right basilaratelectasis.. Impression: Right-sided pleural fluid Electronically signed in [email or web address] by: Jason Flores M.D. 02/03/2021 14:19 EDT Name Value Range Interpretation Code Description Data Haylee rce(s) Supporting Document(s) ID Date Data Source [id number] 02/03/2021 12:23:00 PM EDT [facility] Name Value Range Interpretation Code Description Data Haylee rce(s) Supporting Document(s) C REACTIVE PROTEIN 90.3 mg/L 0.0-3.0 [facility] ID Date Data Source [id number] 02/03/2021 12:20:00 PM EDT [facility] Name Value Range Interpretation Code Description Data Haylee rce(s) Supporting Document(s) WHITE BLOOD COUNT 9.0 K/mm3 4.0-10.0 [facility] RED BLOOD COUNT 2.34 M/mm3 4.00-5.50 L [facility] HEMOGLOBIN 6.9 gm/dL 12.0-16.0 *L [facility] HEMATOCRIT 20.9 % 36.0-48.[address] [facility] MEAN CELL VOLUME 89.3 fl 80-96 [facility] MEAN CORPUSCULAR HEMOGLOBIN 29.5 pg 27.0-31.0 [facility] MEAN CORPUSCULAR HGB CONC 33.0 g/dl 32.0-36.0 [facility] RED CELL DISTRIBUTION WIDTH 16.4 % 10.0-14.5 H [facility] PLATELET COUNT 229 K/mm3 172-[address] [facility] MEAN PLATELET VOLUME 12.8 fl 9.0-13.0 [facility] pital GRAN % 72.2 % 50-80.[address] [facility] IG% 0.2 % 0.0-0.[address] [facility] LYMPH % 16.2 % 25.0-50.[address] [facility] MONO % 7.8 % 2.0-10.[address] [facility] EOS % 3.2 % 0-5.[address] [facility] BASO % 0.4 % 0.0-2.[address] [facility] GRAN # 6.5 K/mm3 2.0-8.[address] [facility] IG# 0.0 K/mm3 0.0-0.[address] [facility] LYMPH # 1.5 K/mm3 1.0-5.[address] [facility] MONO # 0.7 K/mm3 0.10-1.[address] [facility] EOS # 0.3 K/mm3 0.0-0.[address] [facility] BASO # 0.0 K/mm3 0.0-0.[address] [facility] ID Date Data Source [id number] 02/03/2021 02:13:00 PM EDT [facility] Name Value Range Interpretation Code Description Data Haylee rce(s) Supporting Document(s) BLOOD TYPE ABO A [facility] RH TYPE POSITIVE [facility] ANTIBODY SCREEN NEGATIVE [facility] CROSSMATCH COMPATIBLE [facility] SEE TRANSFUSION RECORD IN [facility] ARE R OBED FOR TRANSFUSION CROSSMATCH COMPATIBLE [facility] SEE TRANSFUSION RECORD IN [facility] ARE [place] FOR TRANSFUSION ID Date Data Source [id number] 02/03/2021 12:23:00 PM EDT [facility] l Name Value Range Interpretation Code Description Data Haylee rce(s) Supporting Document(s) GLUCOSE 181 mg/dL 74-106 [facility] BLOOD UREA NITROGEN 50 mg/dL 7-18 [facility] CREATININE 1.89 mg/dL 0.6-1.0 [facility] SODIUM 133 mmol/L 136-145 [facility] POTASSIUM 3.5 mmol/L 3.5-5.1 [facility] CHLORIDE 101 mmol/L 98-[address] [facility] CO2 18 mmol/L 21-32 L [facility] CALCIUM 8.3 mg/dL 8.5-10.1 L [facility] ANION GAP 14.0 mmol/L 5-[address] [facility] GLOMERULAR FILTRATION RATE 26 mL/min [facility] GFR IS CALCULATED IN mL/min/1.73m2 TRACY L FUNCTION: >90MILDLY DECREASED: 60-89MILDY TO MODERATELY DECREASED: 45-59 MODERATELY TO SEVERELY DECREASED: 30-44SEVERELY DECREASED: 15-29RENAL FAILURE: <15 ID Date Data Source [id number] 02/02/2021 07:29:00 AM [facility] l Name Value Range Interpretation Code Description Data Haylee rce(s) Supporting Document(s) C REACTIVE PROTEIN 125.5 mg/L 0.0-3.0 [facility] ID Date Data Source [id number] 02/02/2021 07:29:00 AM [facility] l Name Value Range Interpretation Code Description Data Haylee rce(s) Supporting Document(s) GLUCOSE 214 mg/dL 74-[address] [facility] BLOOD UREA NITROGEN 48 mg/dL 7-18 [facility] ital CREATININE 2.04 mg/dL 0.6-1.0 [facility] SODIUM 137 mmol/L 136-145 [facility] POTASSIUM 3.9 mmol/L 3.5-5.1 [facility] CHLORIDE 106 mmol/L 98-[address] [facility] CO2 18 mmol/L 21-32 L [facility] CALCIUM 7.5 mg/dL 8.5-10.1 L [facility] ANION GAP 13.0 mmol/L 5-12 [facility] GLOMERULAR FILTRATION RATE 24 mL/min [facility] GFR IS CALCULATED IN mL/min/1.73m2 TRACY L FUNCTION: >90MILDLY DECREASED: 60-89MILDY TO MODERATELY DECREASED: 45-59 MODERATELY TO SEVERELY DECREASED: 30-44SEVERELY DECREASED: 15-29RENAL FAILURE: <15 AST 75 U/L 15-[address] [facility] ALT 68 U/L 12-[address] [facility] ALKALINE PHOSPHATASE 158 U/L 46-116 H [facility] TOTAL BILIRUBIN 0.2 mg/dL 0.2-1.[address] [facility] TOTAL PROTEIN 4.7 g/dl 6.4-8.[address] [facility] ALBUMIN 1.7 gm/dL 3.4-5.0 [facility] ID Date Data Source [id number] 02/02/2021 07:16:00 AM EDT [facility] Name Value Range Interpretation Code Description Data Haylee rce(s) Supporting Document(s) WHITE BLOOD COUNT 11.0 K/mm3 4.0-10.0 H [facility] case[facility] RED BLOOD COUNT 2.59 M/mm3 4.00-5.50 L [facility] HEMOGLOBIN 7.7 gm/dL 12.0-16.0 [facility] HEMATOCRIT 22.7 % 36.0-48.[address] [facility] MEAN CELL VOLUME 87.6 fl 80-96 [facility] MEAN CORPUSCULAR HEMOGLOBIN 29.7 pg 27.0-31.0 [facility] MEAN CORPUSCULAR HGB CONC 33.9 g/dl 32.0-36.0 [facility] RED CELL DISTRIBUTION WIDTH 16.1 % 10.0-14.5 H [facility] PLATELET COUNT 224 K/mm3 172-[address] [facility] MEAN PLATELET VOLUME 12.6 fl 9.0-13.0 [facility] pital GRAN % 79.9 % 50-80.[address] [facility] IG% 0.2 % 0.0-0.[address] [facility] LYMPH % 9.5 % 25.0-50.[address] [facility] MONO % 9.9 % 2.0-10.[address] [facility] EOS % 0.2 % 0-5.[address] [facility] BASO % 0.3 % 0.0-2.[address] [facility] GRAN # 8.8 K/mm3 2.0-8.[address] [facility] IG# 0.0 K/mm3 0.0-0.[address] [facility] LYMPH # 1.0 K/mm3 1.0-5.[address] [facility] MONO # 1.1 K/mm3 0.10-1.[address] [facility] EOS # 0.0 K/mm3 0.0-0.5 [facility] BASO # 0.0 K/mm3 0.0-0.2 [facility] ID Date Data Source [id number] 02/01/2021 06:18:00 PM EDT [facility] Name Value Range Interpretation Code Description Data Haylee rce(s) Supporting Document(s) WHITE BLOOD COUNT 9.2 K/mm3 4.0-10.0 [facility] 2.60 M/mm3 4.00-5.50 L [facility] l HEMOGLOBIN 7.7 gm/dL 12.0-16.[address] [facility] HEMATOCRIT 23.3 % 36.0-48.[address] [facility] MEAN CELL VOLUME 89.6 fl 80-96 [facility] MEAN CORPUSCULAR HEMOGLOBIN 29.6 pg 27.0-31.0 [facility] MEAN CORPUSCULAR HGB CONC 33.0 g/dl 32.0-36.0 [facility] RED CELL DISTRIBUTION WIDTH 16.4 % 10.0-14.5 H [facility] PLATELET COUNT 193 K/mm3 172-[address] [facility] MEAN PLATELET VOLUME 12.1 fl 9.0-13.0 [facility] pital GRAN % 64.9 % 50-80.[address] [facility] IG% 0.2 % 0.0-0.[address] [facility] LYMPH % 19.2 % 25.0-50.[address] [facility] MONO % 12.6 % 2.0-10.0 H [facility] EOS % 2.6 % 0-5.[address] [facility] BASO % 0.5 % 0.0-2.[address] [facility] GRAN # 6.0 K/mm3 2.0-8.[address] [facility] IG# 0.0 K/mm3 0.0-0.[address] [facility] LYMPH # 1.8 K/mm3 1.0-5.[address] [facility] MONO # 1.2 K/mm3 0.10-1.[address] [facility] EOS # 0.2 K/mm3 0.0-0.[address] [facility] BASO # 0.1 K/mm3 0.0-0.2 [facility] ID Date Data Source [id number] 02/01/2021 11:59:00 AM EDT [facility] DATE OF EXAMINATION: 02/01/2021 11:15 EDT ABD/PEL NO CONTRAST HISTORY: Fever TECHNIQUE: This CT exam was performed using the following dose reduction techniques:automated exposure control, adjustment of mA and/or kV according to thepatient's size, and use of iterative reconstruction technique. Standard contiguous axial spiral imaging was obtained from the dome of thediaphragms through the symphysis pubis without oral contrast and withoutintravenous contrast administration and with coronal reformatting. FINDINGS: Lower thorax: As described on CT scan of the chest ABDOMEN: Liver: Unremarkable unenhanc edGallbladder and bile ducts: Cholecystectomy. No biliary dilation.Pancreas: UnremarkableSpleen: UnremarkableAdrenals: UnremarkableKidneys and ureters: Unremarkable unenhancedStomach and bowel: Status post gastric bypass. Moderate amount of stool is seenthroughout the colon mildly dilated, fluid-filled loops of small bowel are seen.There is no transition point this is likely veterans service representative of ileus. Viralgastroenteritis can appear in this manner.Appendix: Not seen. Findings suggestive of prior appendectomy PELVIS: Bladder: On opacified, grossly unremarkableReproductive: Grossly unremarkable There is a soft tissue mass encasing the superior mesenteric artery in its midportion measuring 3.2 cm highly suspicious for lymphadenopathy. IMPRESSION: 3.2 cm soft tissue mass encasing the midportion of the superior mesentericartery suspicious for lymphadenopathy. Mildly dilated loops of small bowel may be seen with viral gastroenteritis orileus. Moderate subcutaneous soft tissue edema of the abdominal wall, likelyrepresentative of third spacing/edema. Cellulitis can appear in this manner aswell. Severe calcified plaque formation of abdominal aorta and its major branches aswell as arterial grafts. Electronically signed in [email or web address] by: Cira Hyatt M.D. 02/01/2021 11:53 EDT Name Value Range Interpretation Code Description Data Haylee rce(s) Supporting Document(s) ID Date Data Source [id number] 02/01/2021 11:55:00 AM EDT [facility] DATE OF EXAMINATION: 02/01/2021 10:12 EDT CHEST W/O IV CONTRAST HISTORY: Fever TECHNIQUE: This CT exam was performed using the following dose reduction techniques:automatic exposure control, adjustment of mA and/or kV according to thepatient's size, and use of iterative reconstruction technique. Standard contiguous axial spiral imaging was obtained from lung apices to thelung bases without intravenous contrast administration and with coronalreformatting. FINDINGS: Lungs: Well-expanded. No focal consolidation or mass. Minimal patchy parenchymaldisease along the periphery of the right upper lobe is seenPleural space: This no effusion masses or pleural airMediastinum: Postsurgical changes in this patient is status post mediansternotomy. No lymphadenopathy or pericardial effusionBones/joints: Midline sternotomy sutures. Moderate degenerative changes ofdorsal spine. No pericardial effusion IMPRESSION: Minimal patchy parenchymal disease along the peripheral portion of right upperlobe may be veterans service representative of early pneumonia. Electronically signed in [id number] by: Cira Hyatt M.D. 02/01/2021 11:49 EDT Name Value Range Interpretation Code Description Data [facility] rce(s) Supporting Document(s) ID Date Data Source [id number] 02/01/2021 01:24:00 PM EDT [facility] l Name Value Range Interpretation Code Description Data [facility] rce(s) Supporting Document(s) STOOL FOR OCCULT BLOOD POSITIVE NEGATIVE H [facility] ospital ID Date Data Source [id number] 02/01/2021 07:50:00 AM EDT [facility] l Name Value Range Interpretation Code Description Data [facility] rce(s) Supporting Document(s) GLUCOSE 115 mg/dL 74-[address] [facility] BLOOD UREA NITROGEN 48 mg/dL 7-18 H [facility] ital CREATININE 1.90 mg/dL 0.6-1.[address] [facility] SODIUM 138 mmol/L 136-[address] [facility] POTASSIUM 3.6 mmol/L 3.5-5.[address] [facility] CHLORIDE 105 mmol/L 98-[address] [facility] CO2 18 mmol/L 21-[address] [facility] CALCIUM 7.4 mg/dL 8.5-10.[address] [facility] ANION GAP 15.0 mmol/L 5-[address] [facility] GLOMERULAR FILTRATION RATE 26 mL/min [facility] GFR IS CALCULATED IN mL/min/1.73m2 TRACY L FUNCTION: >90MILDLY DECREASED: 60-89MILDY TO MODERATELY DECREASED: 45-59 MODERATELY TO SEVERELY DECREASED: 30-44SEVERELY DECREASED: 15-29RENAL FAILURE: <15 AST 61 U/L 15-[address] [facility] ALT 48 U/L 12-[address] [facility] ALKALINE PHOSPHATASE 153 U/L 46-116 H [facility] TOTAL BILIRUBIN 0.2 mg/dL 0.2-1.[address] [facility] TOTAL PROTEIN 4.4 g/dl 6.4-8.[address] [facility] ALBUMIN 1.6 gm/dL 3.4-5.[address] [facility] ID Date Data Source [id number] 02/01/2021 07:26:00 AM EDT [facility] Name Value Range Interpretation Code Description Data Haylee rce(s) Supporting Document(s) WHITE BLOOD COUNT 14.1 K/mm3 4.0-10.0 H [facility] RED BLOOD COUNT 2.61 M/mm3 4.00-5.50 L [facility] HEMOGLOBIN 7.8 gm/dL 12.0-16.[address] [facility] HEMATOCRIT 23.4 % 36.0-48.[address] [facility] MEAN CELL VOLUME 89.7 fl 80-96 [facility] MEAN CORPUSCULAR HEMOGLOBIN 29.9 pg 27.0-31.0 [facility] MEAN CORPUSCULAR HGB CONC 33.3 g/dl 32.0-36.0 [facility] RED CELL DISTRIBUTION WIDTH 16.1 % 10.0-14.5 H [facility] PLATELET COUNT 208 K/mm3 172-[address] [facility] MEAN PLATELET VOLUME 12.7 fl 9.0-13.0 [facility] GRAN % 83.0 % 50-80.[address] [facility] IG% 0.3 % 0.0-0.[address] [facility] LYMPH % 7.3 % 25.0-50.[address] [facility] MONO % 8.9 % 2.0-10.[address] [facility] EOS % 0.3 % 0-5.[address] [facility] BASO % 0.2 % 0.0-2.[address] [facility] GRAN # 11.7 K/mm3 2.0-8.[address] [facility] IG# 0.0 K/mm3 0.0-0.[address] [facility] LYMPH # 1.0 K/mm3 1.0-5.[address] [facility] MONO # 1.3 K/mm3 0.10-1.[address] [facility] EOS # 0.0 K/mm3 0.0-0.[address] [facility] BASO # 0.0 K/mm3 0.0-0.[address] [facility] ID Date Data Source [id number] 02/01/2021 12:26:00 AM EDT [facility] Name Value Range Interpretation Code Description Data Haylee rce(s) Supporting Document(s) URINE RBC 0-2 /hpf 0-[address] [facility] URINE WBC 3-5 /hpf 0-[address] [facility] URINE EPITHELIAL CELLS 1+ /hpf 0 [facility] URINE BACTERIA 1+ NONE SEEN H [facility] URINE AMORPHOUS SEDIMENT 4+ [facility] ID Date Data Source [id number] 02/01/2021 12:13:00 AM EDT [facility] Name Value Range Interpretation Code Description Data Haylee rce(s) Supporting Document(s) URINE COLOR. YELLOW [facility] URINE APPEARANCE CLOUDY [facility] l URINE GLUCOSE (UA) NEGATIVE mg/dL NEGATIVE [facility] URINE BILIRUBIN NEGATIVE NEGATIVE [facility] URINE KETONE NEGATIVE mg/dL NEGATIVE [facility] SPECIFIC GRAVITY,URINE 1.010 1.005-1.[address] [facility] URINE BLOOD NEGATIVE NEGATIVE [facility] PH,URINE 5.5 5.0-9.[address] [facility] URINE PROTEIN NEGATIVE mg/dL NEGATIVE [facility] URINE UROBILINOGEN NORMAL(0.2-1) mg/dL 0-1 [facility] URINE NITRATE NEGATIVE NEGATIVE [facility] URINE LEUKOCYTE ESTERASE 1+(SMALL) NEGATIVE H [facility] ID Date Data Source [id number] 02/07/2021 09:25:00 AM EDT [facility] Name Value Range Interpretation Code Description Data Haylee rce(s) Supporting Document(s) BL[facility] ID Date Data Source [id number] 01/31/2021 11:43:00 PM EDT [facility] Name Value Range Interpretation Code Description Data Haylee rce(s) Supporting Document(s) SARS COV2 TRP Not Detected [facility] reported by [facility]. ID Date Data Source [id number] 02/01/2021 01:27:00 AM EDT [facility] l Name Value Range Interpretation Code Description Data Haylee rce(s) Supporting Document(s) Adenovirus Not Detected Detected [facility] Coronavirus 229E Not Detected Detected Not [facility] Coronavirus HKU1 Not Detected Detected Not [facility] Coronavirus NL63 Not Detected Detected Not [facility] Coronavirus OC43 Not Detected Detected Not [facility] Sars Cov 2 Not Detected Detected Not [facility] ospital Negative results do not preclude SARS-Co V-2 infection andshould not be used as the sole basis for treatment or otherpatient management decisions. Negative SARS-CoV-2 resultsmust be combined with clinical observations, patienthistory, and epidemiological information. Human Metapneumovirus Not Detected Detected Not [facility] Human Rhinovirus Not Detected Detected Not [facility] Influenza A Not Detected Detected Not [facility] Influenza B Not Detected Detected Not [facility] Parainfluenza Virus 1 Not Detected Detected Not [facility] Parainfluenza Virus 2 Not Detected Detected Not [facility] Parainfluenza Virus 3 Not Detected Detected Not [facility] Parainfluenza Virus 4 Not Detected Detected Not [facility] Respiratory Syncytial Virus Not Detected Detected Not [facility] Bordetella parapertus ([id number]) Not Detected Detected Not [facility] Bordetella pertussis (ptxP) Not Detected Detected Not [facility] Chlamydia pneumoniae Not Detected Detected Not [facility] Mycoplasma pneumoniae Not Detected Detected Not [facility] The results of the respiratory panel marquise uld notbe used as the sole basis for diagnosis, treatmentor other patient management decisions.Negative results in the setting of a respiratoryillness may be due to infection with pathogens that are not detected by this test,or lower respiratorytract infection that may not be detected by a nasopharyngeal swab specimen.Positive results do not rule out co-infection with other organisms: the agent(s) detected by the FilmArrayRP2 may not be the definite cause of disease. Additional Laboratory testing may be necessary when evaluating a patient with possible respiratory tract infection.The Above results have been determined by using the [employer] system[employer] is an automated in vitro diagnostic system thatutilizes nested multiplex Polymerase Chain Reaction (PCR)and high-resolution melting analysis to detect and identifymultiple nucleic acid targets from clinical specimens. ID Date Data Source [id number] 02/07/2021 09:25:00 AM EDT [facility] Name Value Range Interpretation Code Description Data Haylee rce(s) Supporting Document(s) [facility] ID Date Data Source [id number] 02/01/2021 12:53:00 AM EDT [facility] Name Value Range Interpretation Code Description Data Haylee rce(s) Supporting Document(s) ERYTHROCYTE SEDIMENTATION RATE 29 mm/hr 0-[address] [facility] ID Date Data Source [id number] 01/31/2021 11:51:00 PM EDT [facility] Name Value Range Interpretation Code Description Data Haylee rce(s) Supporting Document(s) WHITE BLOOD COUNT 11.2 K/mm3 4.0-10.0 [facility] RED BLOOD COUNT 3.08 M/mm3 4.00-5.50 L [facility] HEMOGLOBIN 9.0 gm/dL 12.0-16.[address] [facility] HEMATOCRIT 27.0 % 36.0-48.[address] [facility] MEAN CELL VOLUME 87.7 fl 80-96 [facility] MEAN CORPUSCULAR HEMOGLOBIN 29.2 pg 27.0-31.0 [facility] MEAN CORPUSCULAR HGB CONC 33.3 g/dl 32.0-36.0 [facility] RED CELL DISTRIBUTION WIDTH 15.8 % 10.0-14.5 H [facility] PLATELET COUNT 264 K/mm3 172-[address] [facility] MEAN PLATELET VOLUME 12.1 fl 9.0-13.0 [facility] pital GRAN % 94.5 % 50-80.0 H [facility] IG% 0.2 % 0.0-0.[address] [facility] LYMPH % 3.5 % 25.0-50.0 *L [facility] MONO % 0.9 % 2.0-10.[address] [facility] EOS % 0.8 % 0-5.[address] [facility] BASO % 0.1 % 0.0-2.[address] [facility] GRAN # 10.6 K/mm3 2.0-8.[address] [facility] IG# 0.0 K/mm3 0.0-0.[address] [facility] LYMPH # 0.4 K/mm3 1.0-5.[address] [facility] MONO # 0.1 K/mm3 0.10-1.20 [facility] EOS # 0.1 K/mm3 0.0-0.[address] [facility] BASO # 0.0 K/mm3 0.0-0.[address] [facility] ID Date Data Source [id number] 02/01/2021 12:24:00 AM EDT [facility] Name Value Range Interpretation Code Description Data Haylee rce(s) Supporting Document(s) C REACTIVE PROTEIN 82.7 mg/L 0.0-3.0 [facility] ID Date Data Source [id number] 02/01/2021 12:24:00 AM T [facility] Name Value Range Interpretation Code Description Data Haylee rce(s) Supporting Document(s) GLUCOSE 100 mg/dL 74-[address] [facility] BLOOD UREA NITROGEN 48 mg/dL 7-18 [facility] ital CREATININE 1.96 mg/dL 0.6-1.[address] [facility] SODIUM 134 mmol/L 136-[address] [facility] POTASSIUM 4.5 mmol/L 3.5-5.[address] [facility] CHLORIDE 102 mmol/L 98-[address] [facility] CO2 17 mmol/L 21-[address] [facility] CALCIUM 8.3 mg/dL 8.5-10.1 [facility] ANION GAP 15.0 mmol/L 5-[address] [facility] GLOMERULAR FILTRATION RATE 25 mL/min [facility] GFR IS CALCULATED IN mL/min/1.73m2 TRACY L FUNCTION: >90MILDLY DECREASED: 60-89MILDY TO MODERATELY DECREASED: 45-59 MODERATELY TO SEVERELY DECREASED: 30-44SEVERELY DECREASED: 15-29RENAL FAILURE: <15 AST 73 U/L 15-[address] [facility] ALT 63 U/L 12-[address] [facility] ALKALINE PHOSPHATASE 158 U/L 46-116 H [facility] pital TOTAL BILIRUBIN 0.2 mg/dL 0.2-1.[address] [facility] TOTAL PROTEIN 5.8 g/dl 6.4-8.[address] [facility] ALBUMIN 2.0 gm/dL 3.4-5.0 [facility] ID Date Data Source [id number] 01/31/2021 08:17:00 PM T [facility] In-Patient NoteNote:Mrs Talia joyce is getting slightly worse. She starts to feel symptomatic and it may affect her recovery. While evaluating for a potential cause today we will go ahead and transfuse her with 1 unit of PRBCs.Increase omeprazole to BID started Surcralfate, will recheck labs am and talk to Mrs iYp's GI specialist and her surgeon. Vital Signs-Last Result Date Time B/P 110/48 01/31 811 Pulse Ox 100 01/31 809 Temp 98.2 01/31 809 Pulse 62 01/31 809 Resp 18 01/31 809 ENT PERRL/EOMI, normal ENT inspectionNeck normal inspection, non-tender, supple, full range of motion Respiratory lungs clear, normal breath sounds, no respiratory distressCardiovascular regular rate/rhythm, no edema, no JVD, no murmurPeripheral Pulses2+ carotid (R), 2+ carotid (L), 2+ femoral (R), 2+ f emoral (L), 2+ dorsalis pedis (R), 2+ dorsalis pedis (L)Gastrointestinal normal bowel sounds, non tender, soft, no organomegaly, no pulsatile mass, Long midline incision has areas of dehiscence that are clean andhave no signs of infection. Back Exam normal inspection, no CVA tenderness, no vertebral tendernessExtremities non-tender, normal range of motion, normal inspection, no calf tenderness, no pedal edemaNeurologic/Psychiatric alert, looper fixer II-XII nml as tested, normal mood/affect, no motor/sensory deficits, oriented x 3Skin normal color, warm/dry. Lymphatic no adenopathy A/P:70 year old female recovering from colon resection and mesenteric artery bypass-with a likely slow but continuous GI blood loss Will recheck labs AM, increase Omeprazole to BID and added Surcralfate AC&HS. Holding ASA. Will talk to vascular and GI tomorrow after morning labs. Name Value Range Interpretation Code Description Data Haylee [facility](s) Supporting Document(s) ID Date Data Source [id number] 01/31/2021 10:13:00 AM EDT [facility] Results called to SHANKAR [phone] on 01/31/21 byAGUSTÍN. Name Value Range Interpretation Code Description Data [facility](s) Supporting Document(s) BLOOD TYPE ABO A [facility] RH TYPE POSITIVE [facility] ANTIBODY SCREEN NEGATIVE [facility] CROSSMATCH COMPATIBLE [facility] SEE TRANSFUSION RECORD IN [id number] ONEG EXP [id number] ARE READY FOR TRANSFUSION ID Date Data Source [id number] 01/31/2021 08:09:00 AM EDT [facility] Results called to CASSI [phone] on 01/31/21 by[facility]UAQUIN. Name Value Range Interpretation Code Description Data Haylee rce(s) Supporting Document(s) HEMATOCRIT 24.0 % 36.0-48.8 [facility] ID Date Data Source [id number] 01/31/2021 08:09:00 AM [facility] Results called to CASSI [phone] on 01/31/21 [facility] Name Value Range Interpretation Code Description Data Haylee rce(s) Supporting Document(s) HEMOGLOBIN 7.8 gm/dL 12.0-16.0 [facility] ID Date Data Source [id number] 01/31/2021 08:43:00 AM [facility] Name Value Range Interpretation Code Description Data Haylee rce(s) Supporting Document(s) STOOL FOR OCCULT BLOOD POSITIVE NEGATIVE [facility] ospital ID Date Data Source [id number] 01/31/2021 07:24:00 AM [facility] Name Value Range Interpretation Code Description Data Haylee rce(s) Supporting Document(s) MAGNESIUM 2.1 mg/dL 1.8-2.[address] [facility] ID Date Data Source [id number] 01/31/2021 07:24:00 AM [facility] Name Value Range Interpretation Code Description Data [facility] rce(s) Supporting Document(s) GLUCOSE 136 mg/dL 74-[address] [facility] BLOOD UREA NITROGEN 50 mg/dL 7-18 H [facility] ital CREATININE 1.83 mg/dL 0.6-1.[address] [facility] SODIUM 137 mmol/L 136-[address] [facility] POTASSIUM 4.1 mmol/L 3.5-5.[address] [facility] CHLORIDE 104 mmol/L 98-[address] [facility] CO2 22 mmol/L 21-[address] [facility] CALCIUM 7.9 mg/dL 8.5-10.[address] [facility] ANION GAP 11.0 mmol/L 5-[address] [facility] GLOMERULAR FILTRATION RATE 27 mL/min [facility] GFR IS CALCULATED IN mL/min/1.73m2 TRACY L FUNCTION: >90MILDLY DECREASED: 60-89MILDY TO MODERATELY DECREASED: 45-59 MODERATELY TO SEVERELY DECREASED: 30-44SEVERELY DECREASED: 15-29RENAL FAILURE: <15 AST 46 U/L 15-[address] [facility] ALT 45 U/L 12-[address] [facility] ALKALINE PHOSPHATASE 125 U/L 46-116 H [facility] TOTAL BILIRUBIN 0.2 mg/dL 0.2-1.[address] [facility] TOTAL PROTEIN 4.8 g/dl 6.4-8.[address] [facility] ALBUMIN 1.7 gm/dL 3.4-5.[address] [facility] ID Date Data Source [id number] 01/31/2021 07:13:00 AM EDT [facility] Name Value Range Interpretation Code Description Data [facility] rce(s) Supporting Document(s) WHITE BLOOD COUNT 9.4 K/mm3 4.0-10.0 [facility] al RED BLOOD COUNT 2.11 M/mm3 4.00-5.50 L [facility] HEMOGLOBIN 6.3 gm/dL 12.0-16.0 *L [facility] HEMATOCRIT 19.1 % 36.0-48.8 *L [facility] MEAN CELL VOLUME 90.5 fl 80-96 [facility] MEAN CORPUSCULAR HEMOGLOBIN 29.9 pg 27.0-31.0 [facility] MEAN CORPUSCULAR HGB CONC 33.0 g/dl 32.0-36.0 [facility] RED CELL DISTRIBUTION WIDTH 15.2 % 10.0-14.5 H [facility] PLATELET COUNT 258 K/mm3 172-[address] [facility] MEAN PLATELET VOLUME 12.3 fl 9.0-13.0 [facility] GRAN % 63.2 % 50-80.[address] [facility] IG% 0.2 % 0.0-0.[address] [facility] LYMPH % 21.5 % 25.0-50.0 [facility] MONO % 13.6 % 2.0-10.[address] [facility] EOS % 1.3 % 0-5.[address] [facility] BASO % 0.2 % 0.0-2.[address] [facility] GRAN # 5.9 K/mm3 2.0-8.[address] [facility] IG# 0.0 K/mm3 0.0-0.[address] [facility] LYMPH # 2.0 K/mm3 1.0-5.[address] [facility] MONO # 1.3 K/mm3 0.10-1.[address] [facility] EOS # 0.1 K/mm3 0.0-0.[address] [facility] BASO # 0.0 K/mm3 0.0-0.[address] [facility] ID Date Data Source [id number] 01/30/2021 07:03:00 PM EDT [facility] Name Value Range Interpretation Code Description Data Haylee rce(s) Supporting Document(s) CDIFF A/B NEGATIVE NEGATIVE [facility] THIS TEST IS PERFORMED USING A RAPIDIMMU NONASSAY FOR DETECTING CLOSTRIDIUM DIFFICILE TOXINS AAND B. ID Date Data Source [id number] 01/29/2021 03:07:00 PM EDT [facility] l See AddendumIn-Patient NoteNote:Lab oratory Tests 01/28 555 Chemistry Sodium (136 - 145 mmol/L) 138 Potassium (3.5 - 5.1 mmol/L) 4.8 Chloride (98 - 107 mmol/L) 104 Carbon Dioxide (21 - 32 mmol/L) 23 Anion Gap (5 - 12 mmol/L) 11.0 BUN (7 - 18 mg/dL) 46 H Creatinine (0.6 - 1.0 mg/dL) 1.66 H Estimated GFR (MDRD) (mL/min) 31 Glucose (74 - 106 mg/dL) 167 H Calcium (8.5 - 10.1 mg/dL) 9.0 Labs reviewed: Prerenal azotemia is slightly worse. Chronic kidney disease is slightly improved GFR is 31. Patient's Lasix has been stopped and will not be restarted at this point. He was hyperglycemic. We'll follow-up lab work on Friday, CMP, CBC and magnesium level and trend levels. ADDENDUM: 01/29/21 1506 ADDENDUM: Stanislaw Basurto DO on 01/29/21 at 1505 Patient Name: ABDIRAHMAN YIP Unit#: [id number] Rad#: [id number] : 52 Status: ADM IN Ordering MD: STANISLAW BASURTO Room/Bed 237-1 Sex: F Product Test Engineer: Joey Oseguera Date: 01/28/21 Report #: [id number] Signed -CHEST 2 VIEWS ORIGINAL REPORT DATE OF EXAMINATION: 01/27/2021 17:12 EDT CHEST 2 VIEWS HISTORY: Pneumonia TECHNIQUE: PA and lateral radiographs of the chest COMPARISON: None. FINDINGS: The lungs are clear. The heart is normal in size. The pulmonary vasculature isnormal in appearance. Degenerative change is present in the spine. IMPRESSION: No acute disease. Electronically signed in PS360 by: Ulysses Malave M.D. 01/28/2021 10:04 EDT Name Value Range Interpretation Code Description Data Haylee rce(s) Supporting Document(s) ID Date Data Source [id number] 01/28/2021 06:12:00 PM EDT [facility] l DATE OF EXAMINATION: 01/27/2021 17:12 EDT CHEST 2 VIEWS HISTORY: Pneumonia TECHNIQUE: PA and lateral radiographs of the chest COMPARISON: None. FINDINGS: The lungs are clear. The heart is normal in size. The pulmonary vasculature isnormal in appearance. Degenerative change is present in the spine. IMPRESSION: No acute disease. Electronically signed in PS360 by: Ulysses Malave M.D. 01/28/2021 10:04 EDT Name Value Range Interpretation Code Description Data [facility] rce(s) Supporting Document(s) ID Date Data Source [id number] 01/28/2021 06:25:00 AM EDT [facility] Name Value Range Interpretation Code Description [facility] Document(s) GLUCOSE 167 mg/dL 74-[address] [facility] BLOOD UREA NITROGEN 46 mg/dL 7-18 H [facility] ital CREATININE 1.66 mg/dL 0.6-1.[address] [facility] SODIUM 138 mmol/L 136-[address] [facility] POTASSIUM 4.8 mmol/L 3.5-5.[address] [facility] CHLORIDE 104 mmol/L 98-[address] [facility] CO2 23 mmol/L 21-[address] [facility] CALCIUM 9.0 mg/dL 8.5-10.[address] [facility] ANION GAP 11.0 mmol/L 5-[address] [facility] GLOMERULAR FILTRATION RATE 31 mL/min [facility] GFR IS CALCULATED IN mL/min/1.73m2 TRACY L FUNCTION: >90MILDLY DECREASED: 60-89MILDY TO MODERATELY DECREASED: 45-59 MODERATELY TO SEVERELY DECREASED: 30-44SEVERELY DECREASED: 15-29RENAL FAILURE: <15 ID Date Data Source [id number] 01/27/2021 05:39:00 PM EDT [facility] Progress Note GeneralEncounter:Chart re viewed. Patient interviewed and examined. Labs, medications and orders viewed by me. Discussed with staff. All questions were answered. SubjectiveGeneral Condition:The patient is continuing to improve during her course of subacute rehabilitation. She feels much better. Patient is a 1 assist with transfers attimes. She is able to perform her own fausto care. She ambulates with contact guard, using a walker. She continues to work with staff and PT. Her abdominal wound is shrinking, per staff (they did her wound care earlier today). Her sacral wound is also much improved. The patient denies fever or chills and has been afebrile. She has had occasional hypertensive readings and occasional mildslight bradycardia (lowest heart rate was 57 and this is likely secondary to herbeta kristan). She is asymptomatic with this. She denies nausea, vomiting or diarrhea. She had a normal bowel movement, earlier today, without melena or blood. Her appetite is fairly decent. She denies headache and has not felt lightheaded or dizzy. She denies any new EENT complaints. She denies shortnessof breath, wheezing or cough. She denies chest pain or palpitations. She denies abdominal pain and has not had heartburn, indigestion, dysphagia or odynophagia. She is voiding without difficulty denies any complaints. She has her usual chronic aches and pains, but denies any new musculoskeletal issues. She denies any significant weakness, numbness or tingling. She has no other skin issues except for what is noted above. 10 point review of systems is as documented above, otherwise is negative. ObjectiveNote:Current MedicationsAcetaminophen 650 MG Q6H PRN PO FEVER GREATER THAN 101 Acetaminophen 650 MG Q6H PRN PO PAIN MILD (1-08/02) Allopurinol 100 MG DAILY PO Amlodipine Besylate 10 MG DAILY PO Aspirin 81 MG DAILY PO Atorvastatin Calcium 10 MG DAILY PO Brimonidine Tartrate 2 DROP DAILY OU Calcium Carbonate 1,000 MG Q6H PRN PO INDIGESTION Clopidogrel Bisulfate 75 MG DAILY PO Docusate Sodium 100 MG BID PO Duloxetine HCl 60 MG HS PO Ferrous Sulfate 325 MG DAILY PO Gabapentin 400 MG TID PO Hydralazine HCl 25 MG TID PO Insulin Aspart 1 UNIT ACHS SC Insulin Glargine 6 U BID SC Levothyroxine Sodium 50 MCG DAILY@0600 PO Memantine 10 MG BID PO Metoprolol Succinate 25 MG DAILY PO Multivitamins 1 TAB DAILY PO Nitroglycerin 0.4 MG Q5M PRN SL CHEST PAIN Omeprazole 40 MG DAILY PO Ondansetron HCl 4 MG Q4H PRN PO NAUSEA/VOMITING Rivaroxaban 15 MG DAILY 1700 PO Sodium Chloride USE 1 SPRAY IN EACH NOSTRIL Q4H PRN NS NASAL DRYNESS (NF) ammonium lactate 10% 1 HADLEY DAILY PRN TOP DRY SKIN (NF) latanoprost 0.005% 2 DROP HS OU (NF) zanaflex 2 MG BID PRN PO SPASTICITY Vital Signs 01/26 09 2030 0713 Temp 98.1 98.3 Pulse 58 65 Resp 14 15 B/P 126/62 157/65 B/P Mean Pulse Ox 96 99 O2 Delivery O2 Flow Rate FiO2 Temp; 98.3, Pulse; 65, Resp: 15, B/P: 157/65 SaO2: 99, O2 Status: PHYSICAL EXAMINATION: General: Pleasant white female who was alert, oriented, cooperative and in no apparent distress.HEENT: Normocephalic, atraumatic, pupils reactive, sclerae anicteric, slightly dry oral mucosa.Neck: FROM, supple, nontender, no masses or lymphadenopathy, no JVD or HJR.Lungs: Lung vee are clear bilaterally. There is no accessory muscle movementor evidence of respiratory distress.Chest wall: Nontender and no crepitationHeart: Regular, rate and rhythm. Normal S1 and S2. No murmur was noted.Abdomen: Dressing is intact over the dehisced wound. Her abdomen is soft, nontender, I did not note any masses or organomegaly, bowel sounds are positive in all 4 quadrants.Extremities: The patient did move all 4 extremities, at the bedside. Peripheralpulses were palpable. There was no edema or calf tenderness.Neurologic: Cranial nerves grossly intact as tested, normal speech, motor and sensory appears grossly intact at the bedside.Psychiatric: Mood and affect were appropriateSkin: Warm and dry, normal colorBack: There was no vertebral or CVA tenderness. I do not appreciate any muscle spasm.Lymphatic: No palpable lymphadenopathyOther:Laboratory Tests 01/26 0620 Chemistry Sodium (136 - 145 mmol/L) 141 Potassium (3.5 - 5.1 mmol/L) 4.4 Chloride (98 - 107 mmol/L) 106 Carbon Dioxide (21 - 32 mmol/L) 25 Anion Gap (5 - 12 mmol/L) 10.0 BUN (7 - 18 mg/dL) 46 H Creatinine (0.6 - 1.0 mg/dL) 1.78 H Estimated GFR (MDRD) (mL/min) 28 Glucose (74 - 106 mg/dL) 134 H Calcium (8.5 - 10.1 mg/dL) 9.6 Total Bilirubin (0.2 - 1.0 mg/dL) 0.2 AST (15 - 37 U/L) 31 ALT (12 - 78 U/L) 39 Alkaline Phosphatase (46 - 116 U/L) 140 H Total Protein (6.4 - 8.2 g/dl) 5.9 L Albumin (3.4 - 5.0 gm/dL) 2.0 L Hematology WBC (4.0 - 10.0 K/mm3) 9.0 RBC (4.00 - 5.50 M/mm3) 2.95 L Hgb (12.0 - 16.0 gm/dL) 8.9 L Hct (36.0 - 48.8 %) 27.3 L MCV (80 - 96 fl) 92.5 MCH (27.0 - 31.0 pg) 30.2 MCHC Differential (32.0 - 36.0 g/dl) 32.6 RDW (10.0 - 14.5 %) 14.7 H Plt Count (172 - 450 K/mm3) 432 MPV (9.0 - 13.0 fl) 11.7 Gran % (Auto) (50 - 80.0 %) 71.0 Gran # (2.0 - 8.00 K/mm3) 6.4 Immature Gran % (0.0 - 0.2 %) 0.4 H Lymphocytes % (25.0 - 50.0 %) 18.6 L Monocytes % (2.0 - 10.0 %) 5.8 Eosinophils % (0 - 5.0 %) 3.5 Basophils % (0.0 - 2.0 %) 0.7 Immature Gran # (0.0 - 0.2 K/mm3) 0.0 Lymphocytes # (1.0 - 5.0 K/mm3) 1.7 Monocytes # (0.10 - 1.20 K/mm3) 0.5 Eosinophils # (0.0 - 0.5 K/mm3) 0.3 Basophils # (0.0 - 0.2 K/mm3) 0.1 Assessment/PlanAllergiesCoded Allergies:captopril (01/15/21) Additional NotesAM lab work: BMPLab work 02/02/21: CBC, CMP and magnesium levelContinue bowel regimen with Colace.Continue as needed Tylenol, Zofran, Zanaflex, saline nasal spray and ammonium lactateContinue multivitamin and vitamin B12 supplementsDVT prophylaxis: Continue xarelto Problem List 1. Debility, unspecified A&PContinue to work with PT and staff 2. Ambulatory dysfunction A&PContinue to work with PT and staff 3. Abdominal wound dehiscence A&PContinue local care with daily dressing changes as well as Dakin solution 4. Sacral wound A&PContinue local care per protocol 5. Mesenteric artery stenosis A&PThe patient is status post bowel resection secondary to ischemia. She is also status post left EIA to SMA bypass. Continue secondary prevention with aspirin,Plavix, as well as management patient's diabetes, hypertension and hyperlipidemia. 6. Chronic kidney disease (CKD) A&PPatient has worsening renal function and no GFR is 28. Her Lasix has been stopped (she was on 20 mg by mouth twice a day). We will trend her renal function and see that she response. She obviously does require Lasix with her history of heart failure, but reassess based on follow-up lab wo rk as well as the patient clinically. Recheck BMP in a.m. Of note, the patient's potassium was stopped as well 7. Prerenal azotemia A&PThis is also worse. Again her Lasix has been stopped. Follow-up renal functionin a.m. 8. Severe protein-calorie malnutrition A&PEncourage by mouth intake. We'll ask for dietitian consult and await their recommendations 9. Leukocytosis A&PThis has resolved 10. Abnormal CBC A&PHer differential is much improved 11. Normocytic anemia A&PThis essentially has not changed. Obtained to follow H&H. Continue iron supplementation 12. Thrombocytosis A&PThis is much improved. Follow platelet normal to see that it continues to trenddown 13. Elevated alkaline phosphatase level A&PThis is slightly increased. Follow-up level, to make sure it normalizes 14. Paroxysmal atrial fibrillation A&PContinue anticoagulation with xarelto. For rate control, continue metoprolol 15. Diastolic CHF A&PPatient's currently compensated. Monitor closely for signs and symptoms, especially with Lasix being stopped. Continue beta kristan and hydralazine. 16. Type 2 diabetes mellitus with hyperglycemia A&PCheck fingersticks and provide sliding scale insulin coverage. Continue Lantus as well. 17. Hypertension A&PTrend blood pressure and continue metoprolol, amlodipine and hydralazine 18. Hyperlipidemia A&PContinue atorvastatin 19. Coronary artery disease A&PThis is stable. Continue aspirin, Plavix, beta kristan, statin, hydralazine as well as as needed nitroglycerin 20. COPD (chronic obstructive pulmonary disease) A&PMonitor for exacerbating symptoms 21. GERD (gastroesophageal reflux disease) A&PContinue omeprazole as well as as needed Tums 22. Hypothyroidism A&PContinue levothyroxine 23. Depression A&PContinue duloxetine and monitor for exacerbating symptoms 24. History of falling A&PWork with staff and PT 25. Sleep apnea A&PThe patient has not be en using her CPAP in quite some time. She has had significant weight loss with her recent event as well. Monitor for any significant symptoms. 26. Glaucoma A&PContinue brimonidine and latanoprost 27. Gout A&PThe patient has a history of gout. Continue allopurinol 28. Leg pain A&PThe patient most likely has diabetic neuropathy. Gabapentin as well as duloxetine and monitor symptoms 29. Mild cognitive impairment A&PProvide supportive measures. Continue Namenda 30. Pleural effusion A&PThe patient did have pneumonia in addition to the bilateral effusions. She is status post treatment. She is due for follow-up chest x-ray and this will be ordered for the a.m. IV Access/Tubes/Barrett CatheterIV Access: NoneTubes: NoneFoley Catheter: None VTE ProphylaxisVTE Prophylaxis: The patient is on full dose anticoagulation with xarelto. Name Value Range Interpretation Code Description [facility] Supporting Document(s) ID Date Data Source [id number] 01/26/2021 07:04:00 AM EDT [facility] l Name Value Range Interpretation Code Description Data [facility] Supporting Document(s) GLUCOSE 134 mg/dL 74-[address] [facility] BLOOD UREA NITROGEN 46 mg/dL 7-18 H [facility] CREATININE 1.78 mg/dL 0.6-1.[address] [facility] SODIUM 141 mmol/L 136-[address] [facility] POTASSIUM 4.4 mmol/L 3.5-5.[address] [facility] CHLORIDE 106 mmol/L 98-[address] [facility] CO2 25 mmol/L 21-[address] [facility] CALCIUM 9.6 mg/dL 8.5-10.[address] [facility] ANION GAP 10.0 mmol/L 5-[address] [facility] GLOMERULAR FILTRATION RATE 28 mL/min [facility] GFR IS CALCULATED IN mL/min/1.73m2 TRACY L FUNCTION: >90MILDLY DECREASED: 60-89MILDY TO MODERATELY DECREASED: 45-59 MODERATELY TO SEVERELY DECREASED: 30-44SEVERELY DECREASED: 15-29RENAL FAILURE: <15 AST 31 U/L 15-[address] [facility] ALT 39 U/L 12-[address] [facility] ALKALINE PHOSPHATASE 140 U/L 46-116 H [facility] TOTAL BILIRUBIN 0.2 mg/dL 0.2-1.[address] [facility] TOTAL PROTEIN 5.9 g/dl 6.4-8.[address] [facility] ALBUMIN 2.0 gm/dL 3.4-5.[address] [facility] ID Date Data Source [id number] 01/26/2021 06:45:00 AM EDT [facility] Name Value Range Interpretation Code Description Data Haylee rce(s) Supporting Document(s) WHITE BLOOD COUNT 9.0 K/mm3 4.0-10.0 [facility] al RED BLOOD COUNT 2.95 M/mm3 4.00-5.50 L [facility] HEMOGLOBIN 8.9 gm/dL 12.0-16.[address] [facility] HEMATOCRIT 27.3 % 36.0-48.[address] [facility] MEAN CELL VOLUME 92.5 fl 80-96 [facility] MEAN CORPUSCULAR HEMOGLOBIN 30.2 pg 27.0-31.0 [facility] MEAN CORPUSCULAR HGB CONC 32.6 g/dl 32.0-36.0 [facility] RED CELL DISTRIBUTION WIDTH 14.7 % 10.0-14.5 H [facility] PLATELET COUNT 432 K/mm3 172-[address] [facility] MEAN PLATELET VOLUME 11.7 fl 9.0-13.0 [facility] % 71.0 % 50-80.[address] [facility] IG% 0.4 % 0.0-0.[address] [facility] LYMPH % 18.6 % 25.0-50.[address] [facility] MONO % 5.8 % 2.0-10.[address] [facility] EOS % 3.5 % 0-5.[address] [facility] BASO % 0.7 % 0.0-2.[address] [facility] GRAN # 6.4 K/mm3 2.0-8.[address] [facility] IG# 0.0 K/mm3 0.0-0.[address] [facility] LYMPH # 1.7 K/mm3 1.0-5.[address] [facility] MONO # 0.5 K/mm3 0.10-1.[address] [facility] EOS # 0.3 K/mm3 0.0-0.[address] [facility] BASO # 0.1 K/mm3 0.0-0.[address] [facility] ID Date Data Source [id number] 01/24/2021 12:26:00 AM EDT [facility] Progress Note GeneralEncounter:Chart re viewed. Patient interviewed and examined. Labs, medications and orders viewed by me. SubjectiveGeneral Condition:Mrs Yip is recovering after her recent small bowel resection following mesenteric art occlusion and small bowel resection complicated by a postop pneumonia and prolonged hospital stay.She is a frail and very pleasant 70 year old female. She is sitting on the edge of her bed during by evaluation. She admits to feeling stronger.She is eating fairly well. She is cooperating with nursing staff and PT very well. She dnies today any headache, difficulty with speech or swallowing, facial droop/focal neurological weakness, visual changes/disturbance/eye pain, sore throat, n/v/d, substernal CP, Cough, sputum production, hemoptysis, CASTANON/SOB, PND/orthopnea, abdominal/flank pain, frequency/dysuria/hematuria, change in bowel habits, hematochezia/melena, bone/muscle/joint pain,swelling or deformity, heat/cold intolerance, h/o DM/thyroid disease, bleeding/bruising/rash, h/o cancer or VTE, depression/anxiety. PCP: Dr. Robinson GoodwinNephrologist: Dr. Blanchard: Dr Bocanegra ObjectiveNote:Temp; 98.2, Pulse; 62, Resp: 18, B/P: 111/47 SaO2: 100, O2 Status: ENT PERRL/EOMI, normal ENT inspectionNeck normal inspection, non- tender, supple, full range of motionRespiratory lungs clear, normal breath sounds, no respiratory distressCardiovascular regular rate/rhythm, no edema, no JVD, no murmurPeripheral Pulses2+ carotid (R), 2+ carotid (L), 2+ femoral (R), 2+ femoral (L), 2+ dorsalis pedis (R), 2+ dorsalis pedis (L)Gastrointestinal normal bowel sounds, non tender, soft, no organomegaly, no pulsatile mass, Long midline incision has areas of dehiscence that are clean andhave no signs of infection. Back Exam normal inspection, no CVA tenderness, no vertebral tendernessExtremities non-tender, normal range of motion, normal inspection, no calf tenderness, no pedal edemaNeurologic/Psychiatric alert, looper fixer II-XII nml as tested, normal mood/affect, no motor/sensory deficits, oriented x 3Skin normal color, warm/dry. Lymphatic no adenopathy Other:Laboratory Tests 01/22 0635 Chemistry Sodium (136 - 145 mmol/L) 141 Potassium (3.5 - 5.1 mmol/L) 4.6 Chloride (98 - 107 mmol/L) 107 Carbon Dioxide (21 - 32 mmol/L) 23 Anion Gap (5 - 12 mmol/L) 11.0 BUN (7 - 18 mg/dL) 32 H Creatinine (0.6 - 1.0 mg/dL) 1.46 H Estimated GFR (MDRD) (mL/min) 36 Glucose (74 - 106 mg/dL) 133 H Calcium (8.5 - 10.1 mg/dL) 8.6 Hematology WBC (4.0 - 10.0 K/mm3) 11.1 H RBC (4.00 - 5.50 M/mm3) 2.89 L Hgb (12.0 - 16.0 gm/dL) 8.8 L Hct (36.0 - 48.8 %) 26.7 L MCV (80 - 96 fl) 92.4 MCH (27.0 - 31.0 pg) 30.4 MCHC Differential (32.0 - 36.0 g/dl) 33.0 RDW (10.0 - 14.5 %) 14.4 Plt Count (172 - 450 K/mm3) 581 H Current MedicationsAcetaminophen 650 MG Q6H PRN PO FEVER GREATER THAN 101 Acetaminophen 650 MG Q6H PRN PO PAIN MILD (1- 3/10) Allopurinol 100 MG DAILY PO Amlodipine Besylate 10 MG DAILY PO Aspirin 81 MG DAILY PO Atorvastatin Calcium 10 MG DAILY PO Brimonidine Tartrate 2 DROP DAILY OU Calcium Carbonate 1,000 MG Q6H PRN PO INDIGESTION Clopidogrel Bisulfate 75 MG DAILY PO Docusate Sodium 100 MG BID PO Duloxetine HCl 60 MG HS PO Ferrous Sulfate 325 MG DAILY PO Furosemide 20 MG BID.1 PO Gabapentin 400 MG TID PO Hydralazine HCl 25 MG TID PO Insulin Aspart 1 UNIT ACHS SC Insulin Glargine 6 U BID SC Levothyroxine Sodium 50 MCG DAILY@0600 PO Memantine 10 MG BID PO Metoprolol Succinate 25 MG DAILY PO Multivitamins 1 TAB DAILY PO Nitroglycerin 0.4 MG Q5M PRN SL CHEST PAIN Omeprazole 40 MG DAILY PO Ondansetron HCl 4 MG Q4H PRN PO NAUSEA/VOMITING Potassium Chloride 20 MEQ BID PO Rivaroxaban 15 MG DAILY 1700 PO Sodium Chloride USE 1 SPRAY IN EACH NOSTRIL Q4H PRN NS NASAL DRYNESS (NF) ammonium lactate 10% 1 HADLEY DAILY PRN TOP DRY SKIN (NF) isradipine 2.5 MG BID PO (NF) latanoprost 0.005% 2 DROP HS OU (NF) zanaflex 2 MG BID PRN PO SPASTICITY Assessment/PlanAllergiesCoded Allergies:captopril (01/15/21) Additional NotesASSESSMENT AND PLAN:70 year old female with history of mesenteric artery stenosis, paroxysmal atrialfibrillation, metabolic syndrome, hx of celiac artery baloon angioplasty and stent earlier (09/13) with acute bowel ischemia, exploratory laparotomy, small bowel resection, left EIA to SMA artery bypass, with post op pneumonia and partial wound dehiscence admitted to [facility] on 01/15/2021 for a subacuterehab and wound care due to partial and minor superficial dehiscence of her incision as well as profound weakness following extended post surgery hospital stay complicated by pneumonia. Problem List 1. History of bowel resection A&PRecent bowel resection following ischemia related to mesenteric artery stenosis 12/30/2020.Patient is tolerating food very well and her abdominal pain and discomfort are now resolved. 2. 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 Pleural effusion A&PCXR 01/15/21 Persistent bilateral Pleural effisions right greater then left and patchy bibasilar pneumonia greater right then leftPAtient did complete her course of antibiotics. We may repeat the chest caray gary few days.Continue Incentive Spirometry. 4. Hyperlipidemia Status Chronic Onset Date Unknown A&PContinue atorvastatin 5. Coronary artery disease Status Chronic Onset Date Unknown A&PStablecomplaints of chest pain or cardiac equivalent symptomsContinue aspirin and Plavixprn sublingual nitroglycerin 6. Chronic kidney disease (CKD) Status Chronic Onset Date Unknown A&PCK D stage IIISerum creatinine is baselineContinue to monitor and avoid unnecessary nephrotoxinsFollow-up with Dr. Lira as an outpatient 7. Depression Status Chronic Onset Date Unknown A&PStableContinue fluoxetine 8. Chronic anemia Status Chronic Onset Date Unknown A&PStableContinue ferrous gluconate for underlying iron deficiencyContinue B12 supplementationWe'll check labs on Friday 9. Glaucoma Status Chronic Onset Date Unknown A&PContinue brimonidine and Latanoprost oph drops 10. GERD (gastroesophageal reflux disease) Status Chronic Onset Date Unknown A&PContinue PPI 11. History of GA (myocardial infarction) Status Chronic Onset Date Unknown A&PNo chest pain or cardiac equivalent symptoms. 12. Sleep apnea Status Chronic Onset Date Unknown A&PMrs Distefamo wii continue to use home CPAP machine 13. Hypothyroidism Status Chronic Onset Date Unknown A&PStableContinue levothyroxine 14. Gout Status Chronic Onset Date Unknown A&PStable continue allopurinol 15. Leg pain Status Chronic Onset Date Unknown A&PLikely secondary to diabetic neuropathyContinue gabapentin and Zanaflex for back spasms 16. Mild cognitive impairment Status Chronic Onset Date Unknown A&PContinue memantine DIET Consistent CarbohydrateActivity OOB as tolerated w/assistPatient Condition StableResuscitation Status FULL CODEPlan discussed with patientCase discussed with major case detective, nursing staffCopies toFamily Provider: Dr Morales: Dr. Jaureguiphrology: Dr. Lira Advance Care Planning* 5 minutes of [id number] time spent for Advance Care Planning in explanation/discussion of Advance Directives.* Following people are present during the meeting: myself, patient and nursing* Decisions reached: patient confirms Full Code IV Access/Tubes/Barrett CatheterIV Access: noneTubes: noneFoley Catheter: none VTE ProphylaxisVTE Prophylaxis: Eliquis 4. Hypertension VTE ProphylaxisVTE Prophylaxis: [ ]. Name Value Range Interpretation Code Description Data Haylee rce(s) Supporting Document(s) ID Date Data Source [id number] 01/23/2021 11:19:00 PM EDT [facility] l In-Patient NoteNote:Patient's surgical wound dressing change:The areas of dehiscence in a midline incisions are clean without any sign of infection.Dressing changes with Dakins solution to be continued.No changes to the sacral area dressings. Name Value Range Interpretation Code Description Data Haylee rce(s) Supporting Document(s) ID Date Data Source [id number] 01/23/2021 11:48:48 AM EDT [facility] NT INFORMATIONPatient MRN Name Date of Age Gend*PT [id number] Abdirahman Yip 1950 70 years F IPPT Location Admission Date/Time Visit ID Attending [id number] 12/26/20 1512 --- --- EPI ID CSN Admitting Provider [id number] Leana Barron MD([id number]) Attestation signed by Leana Barron MD at 01/23/2021 11:48 AMI agree with the history, physical and medical decision makingSignature: DAVID Maceate: January 23, 2021Time: 11:48 AM --Surgical Discharge Ld YipMRN: [id number] date: 12/26/2020dmitting Physician: DAVID Maceischarge date and time: [facility]here[facility]ford Diagnosis: Mesenteric ischemia s/p exploratory laparotomy, small bowelresection, left EIA to SMA artery bypass using 6 mm PTFE heparin-bondedHemashield graft 12/30/2020.Hospital Course:70-year-old female admitted 12/26/2020 ongoing abdominal pain, status postenteric/celiac artery stenting, distantly status post Clive-en-Y gastric bypass.CTA demonstrated less than 50% celiac artery stenosis with chronic occlusion ofthe proximal SMA, nonconfirmatory for enteric ischemia. Images reviewedmultiple times, she was evaluated for the abdominal pain with consideration ofpossible internal hernia versus marginal ulcer versus mesenteric ischemic pain,with consultation from general surgery, bariatric surgery, and gastroenterology.She had previously been explored last year, found to have significantadhesions.Reexploration with not recommended by bariatric surgery. On day 3 ofadmission mesenteric bypass was canceled after CTA was not confirmatory formesenteric ischemia.The evening of 12/31 she underwent emergent exploration with small bowel resectionand mesenteric bypass. She was taken to the ICU intubated, and subsequentlyextubated on POD #2. NG tube was in place until the return of bowel function onpostoperative day #3. She subsequently tolerated a regular diet with completeresolution of her pain. TPN discontinued 01/04. Continued on aspirin 81 mg,Plavix, and Xarelto started during this admission, 15 mg once daily. Paininitially controlled with hydrocodone, but by the day of discharge she had verylittle pain, no longer requiring narcotics. She was continued on her home doseof gabapentin. Upon return of bowel function she was having several stoolsdaily, tested for C. difficile, negative. Excessive stools resolved and she hashad 1 bowel movement daily for the past several days. She has eaten well andisappreciative of the complete resolution of the severe abdominal prior tosurgery.Wound infectionPrevena VAC dressing was applied intraoperatively, removed 01/04.01/11 she was scheduled for discharge to short-term rehab, but while working withphysical therapy that morning a large amount of discharge expressed from thewound. One half of michael were removed and there were 2 areas of dehiscencewith copious purulent discharge, and no erythema. These wounds were packed withiodoform packing for 2 days, then transition to Dakin soaked packing. She hadcomplete resolution of the erythema by the day of discharge. Wounds wererepacked prior to discharge, which will continue admission to short-term rehab.Prior to discharge, 2 additional michael removed from the edges of the wounddehiscence over the tunnels that may allow for easier packing ongoing.She was given 2 doses of Augmentin during plans for discharge on oralantibiotics, Zosyn was continued throughout the admission. Due to large loosestools on Augmentin this was discontinued.Final wound cultures resulted with Klebsiella, resistant to penicillin. She wasstarted on doxycycline on the day of discharge.She has suffered a fall prior to this admission, with contusion/ecchymosis tothe left eye. CT of the brain and orbit completed on the day of admission,negative for acute fracture.Pneumonia, hospital-acquiredRemained intubated for 1 day postoperatively, as part of the planned surgicalcourse. Successfully extubated postoperative day #2. Was stable untilrequiring increasing oxygen 01/05 and increased leukocytosis to 18 K.Experienced respiratory distress, had increasing oxygen requirements, was onhigh flow O2, and BiPAP, able to wean oxygen and transfer to the floor on 5 Lsupplemental O2. She was then able to successfully wean off oxygen completely.Treated with IV Zosyn to cover pneumonia as well as intra-abdominal protectionof the graft with contaminated case due to bowel resection.Chest x-ray 01/07 with small pleural effusions, right lung base consolidation,stable on repeat 01/09.She does not have COPD, is not previously oxygen dependent, stop smoking 2012. [id number] labile blood glucose in the perioperative period, with several episodesof asymptomatic hypoglycemia that resolved with dextrose. Hyperglycemia to 350sprior to reinstituting Lantus/ episode of hypoglycemia with a blood sugar of 398/13.Lantus adjusted several times, finally receiving 6 mg morning and eveningwithout episodes of hypoglycemia the final 3 days of admission. With this herglucose remains nearly 200 and she received sliding scale insulin. Will bedischarged on regular sliding scale insulin along with lantus 6u BID, regularaccuchecks while admitted to [facility]. HTN/HLD/CADUnderwent nuclear stress test and echocardiogram 12/28 and she was cleared bycardiology for surgery. During this admission started on amlodipine 10 mg.Will continue metoprolol xl 25 mg, Lasix 20 mg twice daily. Spironolactoneheld throughout admission, will not resume on discharge. She will follow upwith her drug abuse counselor to reevaluate her meds in 1 to 2 week s.Rivaroxaban 15 mg at night, started on this admissionCKD 3Creatinine stabilized ~1.5, baseline. Voiding good amount.Potassium normalized, resumed daily lasix 20mg, potassium supplement 40 mEqdaily Pressure woundOffloading cushion and and bed used throughout admission. Was seen by WOCN whorecommends calamine cream to the sacral wound which has been stable, moderatelypainful. Mepilex dressings have been applied but have been difficult to adhereto the skin.mood disorderOn Cymbalta Acute on chronic anemiaStable, requiring a total of 2 unit PRBCs throughout admission.Continue daily oral iron and B12 GlaucomaAlphagan, Xalatan drops nightly GERDContinue PPI, resume nexium on discharge.Covid test negative the morning of discharge.Secondary Diagnoses:Active Hospital Problems Diagnosis Date Noted Small bowel ischemia Expected post operative ventilator requirement 12/30/2020 GERD (gastroesophageal reflux disease) Hyperlipidemia Glaucoma Mesenteric artery stenosis CAD (coronary artery disease) s/p CABG, Followed by Dr Bocanegra CKD (chronic kidney disease), stage III followed by Dr Lira Depressed Type 2 diabetes mellitus with circulatory disorder, with long-term current useof insulin Diastolic CHF Hypertension PAF (paroxysmal atrial fibrillation) H/O, s/p atrial ablation Epigastric pain 10/07/2019Resolved Hospital ProblemsNo resolved problems to display.Discharge Medications:Your medication listSTART taking these medications Instructions Last Dose Given Morning Afternoon Evening Bedtime As Neededacetaminophen 325 MG tabletCommonly known as: TYLENOLReplaces: acetaminophen 650 MG CR tablet Take 2 tablets (650 mg total) by mouth every 4 (four) hours as neededamLODIPine 10 MG tabletCommonly known as: NORVASCStart taking on: January 16, 2021 Take 1 tablet (10 mg total) by mouth daily01/16calazime skin protectant (REMEDY CALAZIME) 0.2-20 % PSTE Pste Apply 1 application topically 2 (two) times a day To sacral wound, followed bymepelex dressing01/15doxycycline 100 MG tabletFor: Infection of the Skin and/or Soft TissueCommonly known as: VIBRA-TABS Take 1 tablet (100 mg total) by mouth 2 (two) times a day for 10 days01/15hydrALAZINE 25 MG tabletCommonly known as: APRESOLINE Take 1 tablet (25 mg total) by mouth 3 (three) times a day as needed (SBP>170)insulin glargine 100 UNIT/ML injectionCommonly known as: LANTUSReplaces: Toujeo SoloStar 300 UNIT/ML Sopn Inject 6 Units under the skin 2 (two) times a daypotassium chloride SA 20 MEQ tabletCommonly known as: K-ARACELIS MCCARTHY-Shawn taking on: January 16, 2021 Take 2 tablets (40 mEq total) by mouth daily01/16rivaroxaban 15 MG TabsFor: for atrial fib/flutterCommonly known as: XARELTO Take 1 tablet (15 mg total) by mouth daily with dinner01/15sodium hypochlorite external solutionCommonly known as: Dakin's 1/2 strength Apply topically 2 (two) times a day Soak 2x2 gauze and pack in two wounds inthe midli ne incision daily01/15CHANGE how you take these medications Instructions Last Dose Given Morning Afternoon Evening Bedtime As NeededtiZANidine 2 MG tabletCommonly known as: ZANAFLEXWhat changed: when to take this reasons to take this Take 1 tablet (2 mg total) by mouth 2 (two) times a day as needed (pain/spasm)CONTINUE taking these medications Instructions Last Dose Given Morning Afternoon Evening Bedtime As Neededallopurinol 100 MG tabletCommonly known as: ZYLOPRIM Take 100 mg by mouth daily01/16Ammonium Lactate 10 % Crea Apply topically daily as needed (for dry skin)aspirin EC 81 MG EC tab let Take 81 mg by mouth 2 (two) times a day01/15atorvastatin 10 MG tabletCommonly known as: LIPITOR Take 10 mg by mouth nightly01/15brimonidine 0.2 % ophthalmic solutionCommonly known as: ALPHAGAN Administer 1 drop to both eyes 2 (two) times a day01/15Calcium Citrate-Vitamin D 315-250 MG-UNIT Tabs Take 1 tablet by mouth 2 (two) times a day01/15Centrum Silver Adult 50+ tablet Take 1 tablet by mouth daily01/16clopidogrel 75 MG tabletCommonly known as: PLAVIX Take 1 tablet (75 mg total) by mouth daily01/16DULoxetine 60 MG capsuleCommonly known as: CYMBALTA Take 60 mg by mouth nightly01/15esomeprazole 40 MG capsuleCommonly known as: NexIUM Take 40 mg by mouth 2 (two) times a day01/15ferrous gluconate 324 MG tabletCommonly known as: FERGON Take 324 mg by mouth daily01/16furosemide 20 MG tabletCommonly known as: LASIX Take 20 mg by mouth 2 (two) times a day01/15gabapentin 400 MG capsuleCommonly known as: NEURONTIN Take 400 mg by mouth 3 (three) times a day01/15isradipine 2.5 MG capsuleCommonly known as: DYNACIRC Take 2.5 mg by mouth 2 (two) times a day01/15latanoprost 0.005 % ophthalmic solutionCommonly known as: XALATAN Administer 1 drop to both eyes nightly01/15levothyroxine 50 MCG tabletCommonly known as: SYNTHROID, LEVOTHROID Take 50 mcg by mouth daily01/16memantine 10 MG tabletCommonly known as: NAMENDA Take 10 mg by mouth 2 (two) times a day01/15metoprolol succinate 25 MG 24 hr tabletCommonly known as: TOPROL-XL Take 25 mg by mouth daily01/16nitroglycerin 0.4 MG SL tabletCommonly known as: NITROSTAT Place 0.4 mg under the tongue every 5 (five) minutes as needed for chest painNovoLOG FlexPen 100 UNIT/ML SopnGeneric drug: Insulin Aspart Inject under the skin 3 times daily sliding scale01/15SUPER B COMPLEX/C PO Take 1 tablet by mouth daily01/16vitamin B-12 1000 MCG tabletCommonly known as: CYANOCOBALAMIN Take 1,000 mcg by mouth daily01/16STOP taking these medicationsacetaminophen 650 MG CR tabletCommonly known as: TYLENOLReplaced by: acetaminophen 325 MG tabletdocusate sodium 100 MG capsuleCommonly known as: COLACEspironolactone 25 MG tabletCommonly known as: ALDACTONEToujeo SoloStar 300 UNIT/ML SopnGeneric drug: Insulin Glargine (1 Unit Dial)Replaced by: insulin glargine 100 UNIT/ML injectionWhere to Get Your MedicationsThese medications were sent to [id number] - [place], [place] - [address] [facility] [id number] acetaminophen 325 MG tablet doxycycline 100 MG tablet insulin glargine 100 UNIT/ML injection sodium hypochlorite external solution tiZANidine 2 MG tabletInformation about where to get these medications is not yet availableAsk your nurse or doctor about these medications amLODIPine 10 MG tablet calazime skin protectant (REMEDY CALAZIME) 0.2-20 % PSTE Pste hydrALAZINE 25 MG tablet potassium chloride SA 20 MEQ tablet rivaroxaban 15 MG TabsPast Medical History:Past Medical History:Diagnosis Date CAD (coronary artery disease) s/p CABG, Followed by Dr Bocanegra Carotid artery disease 12/27/2014 s/p LCEA, Dr Nieves Chronic vascular disorder of intestine CKD (chronic kidney disease), stage III followed by Dr Lira Colon polyp Depressed Diabetes Diastolic CHF GERD (gastroesophageal reflux disease) Glaucoma History of transfusion Hyperlipidemia Hypertension Macular degeneration Mesenteric artery stenosis Metabolic syndrome GA (myocardial infarction) Osteoarthritis PAF (paroxysmal atrial fibrillation) H/O, s/p atrial ablation S/P gastric bypass 07/2012 Dr Olivo Sleep apnea CPAP TIA (transient ischemic attack)Surgical Procedures:Procedure(s):EX LAP, SMALL BOWEL RESECTION, ILIAC TO ASCENDING BYPASS (N/A)Significant Diagnostic Studies:X-ray chest portableNarrative: [address] [address]Jglckox Name: ABDIRAHMAN YIPDOB: 1950ex: FOrdering Provider: LATRICE CONKLINAuthorijosette Prov: LATRICE Gee Provider:Procedure Performed: / XR CHEST PORTABLEExam Date: 01/09/2021 12:42MRN: [id number] Number: [id number] Class: InpatientAccount #: [id number] for Exam: hypoxiaTechnique: AP portable view obtained.Comparison: January 07, 2021Findings: Persistent bilateral pleural effusions right greater than left andpatchy bibasilar airspace disease right greater than left.Aeration left lower lobe is slightly improved.There is mild pulmonary vascular congestion.No pneumothorax is seen.The right IJ catheter extends into the right atrium.Impression: IMPRESSION: Persistent bibasilar airspace disease and pleuraleffusions right greater than left.Mild pulmonary vascular congestion.Report electronically signed by: MEL ROCHA On 01/09/2021 12:45 PMWorkstation ID: [id number]:General: Comfortable sitting in a chair. Able to use stand with assistance ofa walker and reposition herself.Neck: Line removed from the right neck, dry occlusive dressing in placeHead: NC/AT, without obvious deformity. There is resolving ecchymosis over theleft eye that has steadily improved since admissionPERRLAHeart: RRR S1S2, without audible M/R/G.Lungs: CTAB without W/R/R or cough. Without increased inspiratory effort. Noton supplemental [id number]: Soft, NT, ND.Midline incision without erythema. Packing removed, superior incision 3cm, tunnels 4cm superiorly, exposed prolenesuture visible. Lower incision 2cm, tracks 5cm. 4 x 4 gauze packed into thewound after soaking with Dakin's.Additional michael removed from the edges of the wound dehiscence over thetunnels that may allow for easier packing ongoing.Sacrum: calamine over 3cm superficial ulcer. Very sensitive. Mepelex padplaced.Extremities: Warm and well-perfused, without edema. 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 b/l01/11/2021 1224 01/14/2021 1003 Wound culture [[id number]]Abdomen from Surgical Wound Component ValueSpecimen Description ABDOMEN INCISIONSpecial Requests NONEGram Stain Result MODERATE (10 TO 25/LPF) WHITE BLOOD CELLSNO BACTERIACulture Result RARE KLEBSIELLA OXYTOCA(NOTE) ESBL NEGATIVE BY CONFIRMATORY METHODReport Status 01/14/2021 FINALOrganism KLEBSIELLA OXYTOCA Culture & Susceptibility Klebsiella oxytoca MICAmikacin <=2 SensitiveAmoxicillin/Clavulanic Acid >=32/16 ResistantAmpicillin >=32 Resistant 1Cefazolin >=64 ResistantCefepime <=1 SensitiveCefoxitin <=4 SensitiveCeftazidime <=1 SensitiveCeftriaxone 8 SensitiveCiprofloxacin <=0.25 SensitiveErtapenem <=0.5 SensitiveGentamicin <=1 SensitiveLevofloxacin <=0.12 SensitiveMeropenem <=0.25 SensitivePipercillin/Tazobactam >=128 ResistantTetracycline <=1 Sensitive 2Tobramycin <=1 SensitiveTrimethoprim + Sulfamethoxazole <=1/ SensitiveItems needing special attention:- Follow up appointment with Dr. Nieves scheduled for 01/26/2021 at 1015.- Continue doxycycline for 1 week to treat Klebsiella from abdominal woundcultures.- Follow up with PCP and nephrology within 2 weeks for labs and changes in yourmedicationsDischarged Condition:goodDisposition: Care Home FacilitySignature: MATHEW Puri-CDate: January 15, 2021Time: 12:44 PM Name Value Range Interpretation Code Description Data Haylee rce(s) Supporting Document(s) ID Date Data Source [id number] 01/22/2021 07:41:00 AM EDT [facility] Name Value Range Interpretation Code Description Data Haylee rce(s) Supporting Document(s) GLUCOSE 133 mg/dL 74-[address] [facility] BLOOD UREA NITROGEN 32 mg/dL 7-18 H [facility] CREATININE 1.46 mg/dL 0.6-1.[address] [facility] SODIUM 141 mmol/L 136-[address] [facility] POTASSIUM 4.6 mmol/L 3.5-5.[address] [facility] CHLORIDE 107 mmol/L 98-[address] [facility] CO2 23 mmol/L 21-[address] [facility] CALCIUM 8.6 mg/dL 8.5-10.[address] [facility] ANION GAP 11.0 mmol/L 5-[address] [facility] GLOMERULAR FILTRATION RATE 36 mL/min [facility] GFR IS CALCULATED IN mL/min/1.73m2 TRACY L FUNCTION: >90MILDLY DECREASED: 60-89MILDY TO MODERATELY DECREASED: 45-59 MODERATELY TO SEVERELY DECREASED: 30-44SEVERELY DECREASED: 15-29RENAL FAILURE: <15 ID Date Data Source [id number] 01/22/2021 07:12:00 AM EDT [facility] Name Value Range Interpretation Code Description Data Haylee rce(s) Supporting Document(s) WHITE BLOOD COUNT 11.1 K/mm3 4.0-10.0 H [facility] casey RED BLOOD COUNT 2.89 M/mm3 4.00-5.50 L [facility] HEMOGLOBIN 8.8 gm/dL 12.0-16.0 [facility] HEMATOCRIT 26.7 % 36.0-48.8 [facility] MEAN CELL VOLUME 92.4 fl 80-96 [facility] MEAN CORPUSCULAR HEMOGLOBIN 30.4 pg 27.0-31.0 [facility] MEAN CORPUSCULAR HGB CONC 33.0 g/dl 32.0-36.0 [facility] RED CELL DISTRIBUTION WIDTH 14.4 % 10.0-14.5 [facility] PLATELET COUNT 581 K/mm3 172-[address] [facility] ID Date Data Source [id number] 01/18/2021 05:45:04 PM EDT [facility]PAT[facility] NT INFORMATIONPatient MRN Name Date of Age Gend*PT [id number] Abdirahman Yip 1950 70 years F IPPT Location Admission Date/Time Visit ID Attending [id number] 12/26/202 --- --- EPI ID CSN Admitting Provider [id number] Leana Barron MD([id number]) [place] [address] CONSULTATION REPORT CONSULTNAME: ABDIRAHMAN YIPJarrod#: [id number] #: [id number] ADMISSION DATE: 12/26/2020OB: 1950 SEX: F PT TYPE: I VascACCT #: [id number] CARE PHYSICIAN: ROBINSON CARVALHO OF CONSULTATION: 12/29/2020he was admitted with abdominal pain by Dr. Barron. She has had a previousangioplasty of the celiac artery. 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 She had abd ominaldiscomfort before the angioplasty, which had resolved, but she continues tocomplain of diffuse abdominal pain as she says all the time. It is notrelated to meals. She has not lost any weight. CAT scan does not revealany other abnormalities. She has 2 vessels that are open, the celiacartery as well as the inferior mesenteric artery and the SMA fills up withcollaterals very nicely. In the past, she has had a gastric bypass fromich she had done well. She had been explored about a year back withnothing for abdominal pain and not found anything by her surgeons.She was scheduled for a bypass to the SMA, but going through her historyand looking at the angio, the symptoms do not fit the circulation. She has2 vessels that are open. The SMA is filling up the collaterals and shedoes not have a typical mesenteric angina.I discussed it with Dr. Burrell and Dr. Tinsley from General Surgery and theiropinion was that the bariatric surgeons should probably see her becausethis could be related to anyt sintia in the pouch. I discussed it with thebariatric team and the feeling was that they will get a GI consultation,who will be seeing her tomorrow. I canceled the surgery. My feeling isthat it is a major reconstruction on a redo abdomen and we have to beabsolutely sure that there is nothing else that may be causing hersymptoms. It is unlikely that it is the circulation that is causing hersymptoms at this point.ASAF Mackey/GARRET Job #: [id number] DOC #: [id number] Name Value Range Interpretation Code Description Data Haylee rce(s) Supporting Document(s) ID Date Data Source [id number] 01/18/2021 05:44:27 PM EDT [facility]PAT[facility] NT INFORMATIONPatient MRN Name Date of Age Gend*PT [id number] AkinAbdirahman Mendez 1950 70 years F IPPT Location Admission Date/Time Visit ID Attending [id number] 12/26/20 1512 --- --- EPI ID CSN Admitting Provider [id number] Leana Barron MD([id number]) [place] [address] OPERATIVE REPORT OPNAME: AKIN ABDIRAHMAN Mendez Alfaro#: [id number] #: [id number] ADMISSION DATE: 12/26/2020OB: 1950 SEX: F PT TYPE: I VascACCT #: [id number] CARE PHYSICIAN: ROBINSON CARVALHO OF OPERATION: 1PREOPERATIVE DIAGNOSIS:Mesenteric ischemia with bowel gangrene.POSTOPERATIVE DIAGNOSIS:Mesenteric ischemia with bowel gangrene.PROCEDURE PERFORMED:1. Exploratory laparotomy.2. Small bowel resection.3. Left external iliac to superior mesenteric artery bypass using 6 mmPTFE heparin-bonded Hemashield graft.4. Right femoral arterial line plac ement.5. Right internal jugular vein central venous catheter.6. Prevena VAC application.SURGEON:Leana Barron MD.SECOND SURGEON:ANDREW SmileyURGICAL BREEDER SERVICE TECHNICIAN:MATHEW Juárez. Please note that there was no qualified residentavailable for the procedure.ANESTHESIA:General.ESTIMATED BLOOD LOSS:300 mL.INDICATIONS:This is a 70-year-old lady who has known mesenteric ischemia, had previousceliac artery stenting done and had SMA occlusion, which was sent with anelevated white cell count and was planned to be taken to the operating roomfor exploration, possible bowel resection, possible bypass.DESCRIPTION OF PROCEDURE:After explaining the procedure to the patient, taking written consent, thepatient was taken to the operating room. Patient was placed under generalanesthesia by the anesthesia staff. First the neck and right groin wereprepped and under ultrasound guidance, I placed a 5-Mongolian micropuncturekit in the right internal jugular vein and over a wire, placed a triplelumen central venous catheter. A 3-0 silk was used to secure the line tothe neck. All ports aspirated and flushed easily and dressing was appliedon top. After this, the right groin, I placed under ultrasound guidance, a5-Mongolian micropuncture kit into the common femoral artery. It hadpulsatile flow. I secured it with 2-0 Prolenes and attached a pressure bagfor arterial waveform for arterial management. I also secured the tubingto the thigh, so that the catheter was secured in the right and not kink, 4x 4 and Tegaderm was placed on top. After this, her belly was prepped.Dr. Hermelinda Velez explored the belly, which previously had incisions in it.The operative report is dictated for his portion separately where heexplored and resected 120 cm bowel. After this, I was present through thiscase to make sure that all instruments were switched and there was nocontamination in the major field. The patient had no pulse in the superiormesenteric artery as the patient has a Clive-en-Y bypass, her anatomy is notnormal. There was a large Clive limb going up. I dissected in themesentery of the small bowel proximally and the superior mesenteric arterywas circumferentially dissected, which was calcified and had no pulsepresent. There was a monophasic signal present. After this, the leftexternal iliac artery was dissected in the pelvis. It was soft with apulsatile flow. I circumferentially dissected it as I used 6 mmheparin-bonded internal ring PTFE graft and patient was given 7000 units ofheparin. The external iliac artery was clamped. I used an ass-pn-isvlvrwlaujzoqg with a 6 mm PTFE graft with a 5-0 Prolene suture. There waspulsatile flow in the graft. Flow was restarted to the iliac artery. Asthe patient has a Clive-en-Y limb going, I do not want to place it throughthe limb as I am worried about internal hernia or obstruction around thegraft, so I placed the graft in the left colic gutter laterally and placedit gently in a reverse C fashion and brought it anterior to the Clive limbgoing up and placed it in an antegrade fashion on the superior mesentericartery. The left superior iliac artery was opened up. There was minimalflow in it. I used a balloon occlusion catheter proximally. Iwu-wb-geqsvargvmmqlcd was done using 5-0 Prolene suture. Graft was flushed and flowwas started. Now, there was dopplerable signals present and palpable flowpresent. Hemostasis was confirmed. Thorough irrigation with Irrisept wasdone. After this, a looped PDS was used to close the fascia, 2-0 Vicrylwas used to close the subcutaneous area. Hertel were applied to the skinand Prevena VAC was applied. Patient was left intubated and brought to ICUin critical condition. I was present throughout the case.ESTRELLA Smith/GARRET Job #: [id number] DOC #: [id number]: Robinson Goodwin DO Name Value Range Interpretation Code Description Data Haylee rce(s) Supporting Document(s) ID Date Data Source [id number] 01/18/2021 11:04:00 AM EDT [facility] See AddendumHistoryChief Complaint/ Admit ReasonDebility and weaknessHistory of Presenting [id number] female except on transferred to subacute rehabilitation for debilityand weakness.Past medical history: Recent healthcare associated pneumonia, h/o COPD not O2 orsteroid dependent, PAF s/p ablation, type 2 diabetes, hypertension, hyperlipidemia, coronary artery disease, CTD stage III, sacral pressure wound present on admission, depression/mood disorder, chronic anemia with recent [facility], glaucoma, GERD.She had a recent and rather complicated admission at [facility] in [place] resulting in a 25 day hospital stay d/t mesenteric ischemia resulting in ex lap and small bowel resection, healthcare associated pneumonia likey VAP from being intubated and on ventilator, abdominal wound dehisence and wound infection with Klebsiella and finishing 7 more days of po Doxycyline. Prior to d/c she had a mechanical fall sustaining an area of contusion/ecchymosis of the left eye with negative head and orbital CT. Additionally she has a sacral pressure sore that was present on admission. She was otherwise felt today to be medically optimized by her treating team in [place] and cleared for subacute rehab and she was agreeable to come to [facility] to complete her rehabitation. OP Providers:PCP: Dr. Robinson GoodwinNephrologist: Dr. Blanchard: Dr Bocanegra Denies: headache, difficu lty with speech or swallowing, facial droop/focal neurological weakness, visual changes/disturbance/eye pain, sore throat, f/c/r, n/v/d, substernal CP, Cough, productive sputum, hemoptysis, CASTANON/SOB, PND/orthopnea, abdominal/flank pain, frequency/dysuria/hematuria, change in bowel habits, hematochezia/melena, bone/muscle/joint pain, swelling or deformity, heat/cold intolerance, h/o DM/thyroid disease, bleeding/bruising/rash, h/o cancer orVTE, depression/anxiety. 12 point ROS complete, pertinent positives noted No recent travel, sick contacts or known exposure to COVID19 Past Medical/Surgical Histo ryPast Medical/Surgical HistoryMedical Problems Abdominal wound dehiscence Ambulatory dysfunction Chronic anemia (Chronic, Unknown) Chronic kidney disease (CKD) (Chronic, Unknown) COPD (chronic obstructive pulmonary disease) (Chronic, Unknown) Coronary artery disease (Chronic, Unknown) Debility, unspecified Depression (Chronic, Unknown) Diastolic CHF (Chronic) GERD (gastroesophageal reflux disease) (Chronic, Unknown) Glaucoma (Chronic, Unknown) Gout (Chronic, Unknown) H/O TIA (transient ischemic attack) and stroke History of GA (myocardial infarction) (Chronic, Unknown) Hyperlipidemia (Chronic, Unknown) Hypertension (Chronic, Unknown) Hypothyroidism (Chronic, Unknown) Leg pain (Chronic, Unknown) Mesenteric artery stenosis Mild cognitive impairment (Chronic, Unknown) Paroxysmal atrial fibrillation (Chronic) Sacral wound Sleep apnea (Chronic, Unknown) Type 2 diabetes mellitus (Chronic)Surgical Problems H/O elbow surgery H/O gastric bypass H/O lumbosacral spine surgery H/O ventral hernia repair History of cardiac cath History of cholecystectomy History of left- sided carotid endarterectomy S/P ablation of atrial fibrillation Reconciled Home Med ListSee Reconciled Home Medication List AllergiesCoded Allergies:captopril (01/15/21) Family history Father, unkown history, mother: h/o heart diseaseSocial History quit smoking, no alcohol use, no recreational drug use Review of SystemsConstitutionalReports: See HPI, Generalized weakness, Fatigue. Denies: Pain, Fever, Chills, Sweats, Malaise, Weight loss. Ski nReports: See HPI, contusion (eye), ecchymosis (eye). Denies: rash, abrasion, itching, laceration, swelling. EyesDenies: See HPI, redness, discharge, visual loss/blurred, itching, diplopia, eyepain. ENTDenies: See HPI, earache, nasal congestion, sore throat, rhinorrhea, ear drainage, ear ringing, throat pain, tongue pain. RespiratoryDenies: See HPI, dyspnea, non-productive cough, productive cough, shortness of breath, wheezing, hemoptysis, PND, pleurisy. CardiovascularDenies: See HPI, chest pain, dyspnea on exertion, edema, orthopnea, palpitations, PND. GastrointestinalReports: See HPI, abdominal pain (improved). Denies: nausea, vomiting, diarrhea, constipation, melena, hematochezia. GenitourinaryDenies: See HPI, dysuria, flank pain, frequency, hematuria, nocturia, urgency. MusculoskeletalDenies: See HPI, extremity pain, extremity swelling, joint pain, joint swelling,neck pain. HematologyDenies: See HPI, adenopathy, bleeding, bruising, petechiae. EndocrineReports: See HPI, diabetic, other (history of thyroid disease/DM). Denies: coldintolerance, heat intolerance, polydipsia, polyphagia, polyuria. NeurologicalReports: See HPI, gait problem. Denies: bladder dysfunction, bowel dysfunction,change in LOC, confusion, dizziness, focal weakness, headache, lightheaded, numbness, seizure, slurred speech. PsychDenies: See HPI, agitation, anxiety, auditory hallucination, confusion, delusional, depression. ExamVital SignsVital Signs 01/15 1636 Temp 97.6 Pulse 64 Resp 16 B/P 135/59 B/P Mean Pulse Ox 100 O2 Delivery O2 Flow Rate FiO2 Physical ExaminationEENT PERRL/EOMI, normal ENT inspectionNeck normal inspection, non-tender, supple, full range of motionRespiratory lungs clear, normal breath sounds, no respiratory distressCardiovascular regular rate/rhythm, no edema, no JVD, no murmurPer ipheral Pulses2+ carotid (R), 2+ carotid (L), 2+ femoral (R), 2+ femoral (L), 2+ dorsalis pedis (R), 2+ dorsalis pedis (L)Gastrointestinal normal bowel sounds, non tender, soft, no organomegaly, no pulsatile massBack Exam normal inspection, no CVA tenderness, no vertebral tendernessExtremities non-tender, normal range of motion, normal inspection, no calf tenderness, no pedal edemaNeurologic/Psychiatric alert, looper fixer II-XII nml as tested, normal mood/affect, no motor/sensory deficits, oriented x 3Skin normal color, warm/dryLymphatic no adenopathyOther:Current MedicationsAcetaminophen 650 MG Q6H PRN PO FEVER GREATER THAN 101 Acetaminophen 650 MG Q6H PRN PO PAIN MILD (1-3/10) Allopurinol 100 MG DAILY PO Amlodipine Besylate 10 MG DAILY PO Aspirin 81 MG DAILY PO Atorvastatin Calcium 10 MG DAILY PO Brimonidine Tartrate 2 DROP DAILY OU Calcium Carbonate 1,000 MG Q6H PRN PO INDIGESTION Clopidogrel Bisulfate 75 MG DAILY PO Cyanocobalamin 1,000 MCG DAILY PO Docusate Sodium 100 MG BID PO Doxycycline Monohydrate 100 MG Q12H PO Duloxetine HCl 60 MG HS PO (NF) FERROUS gluconate 324 MG DAILY PO Furosemide 20 MG BID.1 PO Gabapentin 400 MG TID PO Hydralazine HCl 25 MG TID PO Insulin Aspart 1 UNIT ACHS SC Levothyroxine Sodium 50 MCG DAILY@0600 PO Memantine 10 MG BID PO Metoprolol Succinate 25 MG DAILY PO Multivitamins 1 TAB DAILY PO Nitroglycerin 0.4 MG Q5M PRN SL CHEST PAIN Omeprazole 40 MG DAILY PO Ondansetron HCl 4 MG Q4H PRN PO NAUSEA/VOMITING Potassium Chloride 20 MEQ BID PO Rivaroxaban 15 MG DAILY 1700 PO (NF) ammonium lactate 10% 1 HADLEY DAILY PRN TOP DRY SKIN (NF) isradipine 2.5 MG BID PO (NF) latanoprost 0.005% 2 DROP HS OU (NF) zanaflex 2 MG BID PRN PO SPASTICITY Vital Signs Date Time Temp Pulse Resp B/P B/P Pulse O2 O2 Flow FiO2 Mean Ox Delivery Rate 01/15 1636 97.6 64 16 135/59 100 Assessment/PlanProblem List 1. Debility, unspecified A&Phere for Subacute rehabc/w PT/OT and nursing care 2. Ambulatory dysfunction A&Pgait training and stregthening 3. Abdominal wound dehiscence A&Pcontinue with wound dr dueñas with Dakin's solution on 2x2 gauze in midline abdominal incision wounds and cover with dry gauze, changing dressings 2x's per week.She has a follow up appointment with Dr. Nieves 01/26/2021 at 1015amFinish Doxycycline 100mg bid for 7 more days d/t klebsiella from abdominal woundcultures 4. Sacral wound A&Pcontinue with calamine and wound dressings per discharge instructionsshould follow up with dr. Nieves vs establishing with [facility]/Dr. Cha since she lives locally. 5. Paroxysmal atrial fibrillation Status Chronic A&Ps/p ablationRate controlled with metoprolol and AC with Eliquis 6. Diastolic CHF Status Chronic A&Pshe appears compensatedc/t monitor fluid statusc/w Lasix 20mg po bid and KCL for potassium repleatment 7. COPD (chronic obstructive pulmonary disease) Status Chronic Onset Date Unknown A&PstableNot O2 and not steroid dependentc/w nebs/inhalers prn 8. Type 2 diabetes mellitus Status Chronic A&Pconsistent carb dietFSBS AChs with ssi and levemir 9. Hypertension Status Chronic Onset Date Unknown A&Pc/w amlodipine, metoprolol, lasix, hydralazin and isradipine with hold parameters 10. Hyperlipidemia Status Chronic Onset Date Unknown A&PContinue atorvastatin 11. Coronary artery disease Status Chronic Onset Date Unknown A&PStablecomplaints of chest pain or cardiac equivalent symptomsContinue aspirin and Plavixprn sublingual nitroglycerin 12. Chronic kidney disease (CKD) Status Chronic Onset Date Unknown A&PCK D stage IIISerum creatinine is baselineContinue to monitor and avoid unnecessary nephrotoxinsFollow-up with Dr. Lira as an outpatient 13. Depression Status Chronic Onset Date Unknown A&PStableContinue fluoxetine 14. Chronic anemia Status Chronic O nset Date Unknown A&PStableContinue ferrous gluconate for underlying iron deficiencyContinue B12 supplementationWe'll check labs on Friday 15. Glaucoma Status Chronic Onset Date Unknown A&PContinue brimonidine and Latanoprost oph drops 16. GERD (gastroesophageal reflux disease) Status Chronic Onset Date Unknown A&PContinue PPI 17. History of GA (myocardial infarction) Status Chronic Onset Date Unknown A&PNo chest pain or cardiac equivalent symptoms. 18. Sleep apnea Status Chronic Onset Date Unknown A&POkay to use home CPAP machine 19. Hypothyroidism Status Chronic Onset Date Unknown A&PStableContinue levothyroxine 20. Gout Status Chronic Onset Date Unknown A&PStable continue allopurinol 21. Leg pain Status Chronic Onset Date Unknown A&PLikely secondary to diabetic neuropathyContinue gabapentin and Zanaflex for back spasms 22. Mild cognitive impairment Status Chronic Onset Date Unknown A&PContinue memantine DIET Consistent CarbohydrateActivity OOB as tolerated w/assistPatient Condition StableResuscitation Status FULL CODEPlan discussed with patientCase discussed with major case detective, nursing staffCopies toFamily Provider: Dr Morales: AntecolNephrology: Dr. Lira Advance Care Planning* 5 minutes of [id number] time spent for Advance Care Planning in explanation/discussion of Advance Directives.* Following people are present during the meeting: myself, patient and nursing* Decisions reached: patient confirms Full Code IV Access/Tubes/Barrett CatheterIV Access: noneTubes: noneFoley Catheter: none VTE ProphylaxisVTE Prophylaxis: Eliquis ADDENDUM: 01/18/21 1104 ADDENDUM: Jose Magaña DO on 01/18/21 at 1103 per dietary recommendations; added to diet glucerna 8oz bid to aid in healing pressure ulcer Name Value Range Interpretation Code Description Data Haylee rce(s) Supporting Document(s) ID Date Data Source [id number] 01/18/2021 07:12:00 AM EDT [facility] l Name Value Range Interpretation Code Description Data [facility] rce(s) Supporting Document(s) GLUCOSE 193 mg/dL 74-[address] [facility] BLOOD UREA NITROGEN 26 mg/dL 7-18 H [facility] CREATININE 1.44 mg/dL 0.6-1.[address] [facility] SODIUM 140 mmol/L 136-[address] [facility] POTASSIUM 4.8 mmol/L 3.5-5.[address] [facility] CHLORIDE 106 mmol/L 98-[address] [facility] CO2 22 mmol/L 21-[address] [facility] CALCIUM 8.6 mg/dL 8.5-10.[address] [facility] ANION GAP 12.0 mmol/L 5-[address] [facility] GLOMERULAR FILTRATION RATE 36 mL/min [facility] GFR IS CALCULATED IN mL/min/1.73m2 TRACY L FUNCTION: >90MILDLY DECREASED: 60-89MILDY TO MODERATELY DECREASED: 45-59 MODERATELY TO SEVERELY DECREASED: 30-44SEVERELY DECREASED: 15-29RENAL FAILURE: <15 ID Date Data Source [id number] 01/18/2021 06:55:00 AM EDT [facility] l Name Value Range Interpretation Code Description Data [facility] rce(s) Supporting Document(s) WHITE BLOOD COUNT 10.0 K/mm3 4.0-10.0 [facility] casey RED BLOOD COUNT 2.83 M/mm3 4.00-5.50 L [facility] l HEMOGLOBIN 8.6 gm/dL 12.0-16.[address] [facility] HEMATOCRIT 26.1 % 36.0-48.[address] [facility] MEAN CELL VOLUME 92.2 fl 80-96 [facility] l MEAN CORPUSCULAR HEMOGLOBIN 30.4 pg 27.0-31.0 [facility] MEAN CORPUSCULAR HGB CONC 33.0 g/dl 32.0-36.0 [facility] RED CELL DISTRIBUTION WIDTH 14.2 % 10.0-14.5 [facility] PLATELET COUNT 677 K/mm3 172-[address] [facility] ID Date Data Source [id number] 01/15/2021 09:41:23 AM EDT [facility] [place] [facility] Name Value Range Interpretation Code Description Data Haylee rce(s) Supporting Document(s) POC NOVA GLU 145 mg/dL (70-99) H [facility] [place] [facility] PERFORMED BY [facility] CLINICAL STAFF ID Date Data Source [id number] 01/15/2021 12:33:00 AM EDT [facility] Name Value Range Interpretation Code Description Data Haylee rce(s) Supporting Document(s) SARS coronavirus 2 RNA [Presence] in Res piratory specimen by TOMAS with probe detection NOT DETECTED [facility] This lab was reported by [facility] [place] [facility]. ID Date Data Source [id number] 01/15/2021 06:04:36 AM EDT [facility] [place] christian LUZ Name Value Range Interpretation Code Description Data Haylee rce(s) Supporting Document(s) SPECIMEN DESCRIPTION [facility] COVID19 RESULT (NDET) [facility] [place] [facility] THIS ASSAY AMPLIFIES AND DETECTSTHE TARG ET RNA USING REAL-TIME PCR.TESTING PERFORMED ON THE [employer] COMMENT [facility] [place] [facility] UNDER AN EMERGENCY USE AUTHORIZATION(EUA ) FOR THE DETECTION AND/OR DIAGNOSISOF THE VIRUS THAT CAUSES COVID-19.NEGATIVE 2019_NCOV RT-PCR RESULTS DONOT PRECLUDE 2019_NCOV INFECTION ANDSHOULD NOT BE USED THE SOLE BASISFOR PATIENT MANAGEMENT DECISIONS. FIRST TEST [facility] [place] of [facility] EMPLOYED IN HLTHCARE [facility] of [place] SYMPTOMATIC [facility] [place] of [facility] DATE OF SYMPT ONSET [facility] of [place] HOSPITALIZED [facility] [place] of [facility] ICU [facility] [place] [facility] [place] CONGREGATE CARE SET Lab [facility] [place] [facility] ID Date Data Source [id number] 01/14/2021 11:11:11 PM EDT [facility] [place] [facility] Name Value Range Interpretation Code Description Data Haylee rce(s) Supporting Document(s) POC NOVA GLU 207 mg/dL (70-99) H [facility] [place] of [place] [facility] CLINICAL STAFF ID Date Data Source [id number] 01/14/2021 05:14:32 PM EDT [facility] [place] [facility] Name Value Range Interpretation Code Description Data Haylee rce(s) Supporting Document(s) POC NOVA GLU 170 mg/dL (70-99) H [facility] [place] [facility] [place] [facility] CLINICAL STAFF ID Date Data Source [id number] 01/14/2021 05:14:27 PM EDT [facility] [place] [facility] Name Value Range Interpretation Code Description Data Haylee rce(s) Supporting Document(s) POC NOVA GLU 158 mg/dL (70-99) H [facility] [place] [facility] [place] [facility] CLINICAL STAFF ID Date Data Source [id number] 01/14/2021 09:44:16 AM EDT [facility] [place] [facility] Name Value Range Interpretation Code Description Data Haylee rce(s) Supporting Document(s) POC NOVA GLU 103 mg/dL (70-99) H [facility] [place] [facility] [place] [facility] CLINICAL STAFF ID Date Data Source [id number] 01/13/2021 05:32:58 PM EDT [facility] [place] [facility] Name Value Range Interpretation Code Description Data Haylee rce(s) Supporting Document(s) POC NOVA GLU 198 mg/dL (70-99) H [facility] [place] [facility] [place] [facility] CLINICAL STAFF ID Date Data Source [id number] 01/13/2021 01:59:27 PM EDT [facility] [place] [facility] Name Value Range Interpretation Code Description Data Haylee rce(s) Supporting Document(s) POC NOVA GLU 174 mg/dL (70-99) H [facility] [place] [facility] [place] [facility] CLINICAL STAFF ID Date Data Source [id number] 01/13/2021 09:27:48 AM EDT [facility] [place] [facility] Name Value Range Interpretation Code Description Data Haylee rce(s) Supporting Document(s) POC NOVA GLU 194 mg/dL (70-99) H [facility] [place] [facility] [place] [facility] CLINICAL STAFF ID Date Data Source [id number] 01/12/2021 11:47:08 PM EDT [facility] [place] [facility] Name Value Range Interpretation Code Description Data Haylee rce(s) Supporting Document(s) POC NOVA GLU 231 mg/dL (70-99) H [facility] [place] [facility] [place] [facility] CLINICAL STAFF ID Date Data Source [id number] 01/12/2021 06:51:29 PM EDT [facility] [place] [facility] Name Value Range Interpretation Code Description Data Haylee rce(s) Supporting Document(s) POC NOVA GLU 148 mg/dL (70-99) H [facility] [place] [facility] [place] [facility] CLINICAL STAFF ID Date Data Source [id number] 01/12/2021 02:22:27 PM EDT [facility] [place] [facility] Name Value Range Interpretation Code Description Data Haylee rce(s) Supporting Document(s) POC NOVA GLU 142 mg/dL (70-99) H [facility] [place] [facility] [place] [facility] CLINICAL STAFF ID Date Data Source [id number] 01/12/2021 01:20:49 PM EDT [facility] [place] [facility] Name Value Range Interpretation Code Description Data Haylee rce(s) Supporting Document(s) SODIUM 139 mmol/L (136-145) [facility] [place] [facility] POTASSIUM 4.7 mmol/L (3.6-5.2) [facility] [place] [facility] CHLORIDE 108 mmol/L (100-108) [facility] [place] [facility] CO2 24 mmol/L (22-31) [facility] [place] [facility] ANION GAP 7 mmol/L (7-16) [facility] [place] [facility] UREA NITROGEN 26 mg/dL (7-24) H [facility] [place] [facility] CREATININE 1.66 mg/dL (0.60-1.00) H [facility] [place] [facility] BUN/CREAT RATIO 15.7 RATIO (10.0-20.0) [facility] GLUCOSE 139 mg/dL (70-99) H [facility] [place] [facility] CALCIUM 7.6 mg/dL (8.4-10.2) L [facility] [place] [facility] GFR 31 ml/min/1.73m2 (>59) L [facility] [place] [facility] GFR ( AMER) 37 ml/min/1.73m2 (>59) L [facility] [place] [facility] GFR INTERPRETATION [facility] --NORMAL KIDNEY FUNCTION OR MILD DISEASE - GFR >OR= 60CHRONIC KIDNEY DISEASE - GFR 15 - 59RENAL FAILURE - GFR <15 Est. GFR calculation based on the MDRDstudy equation, which assumes a steadystate for creatinine. Est. GFR should notbe used for medication dosing. ID Date Data Source [id number] 01/12/2021 12:46:06 PM EDT [facility] [place] of [facility] Name Value Range Interpretation Code Description Data Haylee rce(s) Supporting Document(s) WBC 10.3 10*3/uL (4.1-11.0) [facility] [place] [facility] RBC 2.92 10*6/uL (4.00-5.40) L [facility] [place] [facility] HGB 8.9 g/dL (12.0-16.0) L [facility] [place] [facility] HCT 27.6 % (36.0-47.0) L [facility] [place] [facility] MCV 94.4 fL (80.0-95.0) [facility] [place] [facility] MCH 30.4 pg (27.0-32.0) [facility] [place] [facility] MCHC 32.2 g/dL (32.0-36.0) [facility] [place] [facility] RDW 15.2 % (10.5-14.5) H [facility] [place] of [facility] [place] PLT 503 10*3/uL (150-450) H [facility] [place] [facility] MPV 10.5 fL (7.1-10.7) [facility] [place] [facility] ID Date Data Source [id number] 01/12/2021 11:16:51 AM EDT [facility] [place] of [facility] Name Value Range Interpretation Code Description Data Haylee rce(s) Supporting Document(s) POC NOVA GLU 112 mg/dL (70-99) H [facility] [place] [facility] [place] [facility] CLINICAL STAFF ID Date Data Source [id number] 01/12/2021 10:31:25 AM EDT [facility] [place] of [facility] Name Value Range Interpretation Code Description Data Haylee rce(s) Supporting Document(s) POC NOVA GLU 61 mg/dL (70-99) L [facility] [place] [facility] [place] [facility] CLINICAL STAFF ID Date Data Source [id number] 01/12/2021 10:31:19 AM EDT [facility] [place] of [place] Name Value Range Interpretation Code Description Data Haylee rce(s) Supporting Document(s) POC NOVA GLU 46 mg/dL (70-99) L [facility] [place] of [place] [facility]FOR[facility] BY [facility] CLINICAL STAFF ID Date Data Source [id number] 01/11/2021 06:22:28 PM EDT [facility] [place] of [facility] Name Value Range Interpretation Code Description Data Haylee rce(s) Supporting Document(s) POC NOVA GLU 122 mg/dL (70-99) H [facility] [place] [facility] CLINICAL STAFF ID Date Data Source [id number] 01/11/2021 01:05:55 PM EDT [facility] [place] of [place] Name Value Range Interpretation Code Description Data Haylee rce(s) Supporting Document(s) POC NOVA GLU 164 mg/dL (70-99) H [facility] [place] of [place] [facility] CLINICAL STAFF ID Date Data Source [id number] 01/14/2021 10:04:32 AM EDT [facility] [place] of [place] SPECIMEN DESCRIPTION ABDOMEN INCISIONSPECIAL REQUESTS NONECULTURE RESULTS NO ANAEROBES ISOLATEDREPORT STATUS FINAL 01/14/2021 Name Value Range Interpretation Code Description Data Haylee rce(s) Supporting Document(s) ID Date Data Source [id number] 01/14/2021 10:04:12 AM EDT [facility] [place] of [place] SPECIMEN DESCRIPTION ABDOMEN INCISIONSPECIAL REQUESTS NONEGRAM STAIN MODERATE (10 TO 25/LPF) WHITE BLOOD CELLS NO BACTERIACULTURE RESULTS RARE KLEBSIELLA OXYTOCAESBL NEGATIVE BY CONFIRMATORY METHOD REPORT STATUS FINAL 01/14/2021ORGANISM KLEBSIELLA OXYTOCAMETHOD MICAMIKACIN <=2 SUSCEPTIBLEAMOXICILLIN/CLAVULANIC AC >=32/16 RESISTANTAMPICILLIN >=32 RESISTANT ISOLATES SUSCEPTIBLE TO AMPICILLIN ARE ALSO SUSCEPTIBLE TO AMOXICILLIN.CEFAZOLIN >=64 RESISTANTCEFEPIME <=1 SUSCEPTIBLECEFOXITIN <=4 SUSCEPTIBLECEFTAZIDIME <=1 SUSCEPTIBLECEFTRIAXONE 8 SUSCEPTIBLECIPROFLOXACIN <=0.25 SUSCEPTIBLEGENTAMICIN <=1 SUSCEPTIBLELEVOFLOXACIN <=0.12 SUSCEPTIBLEMEROPENEM <=0.25 SUSCEPTIBLEPIPERACILLIN/TAZOBACTAM >=128 RESISTANTTETRACYCLINE <=1 SUSCEPTIBLE ISOLATES SUSCEPTIBLE TO TETRACYCLINE ARE ALSO SUSCEPTIBLE TO DOXYCYCLINE AND MINOCYCLINE.TOBRAMYCIN <=1 SUSCEPTIBLETRIMETH/SULFA <=1/ SUSCEPTIBLEERTAPENEM <=0.5 SUSCEPTIBLE Name Value Range Interpretation Code Description Data Haylee rce(s) Supporting Document(s) ID Date Data Source [id number] 01/11/2021 11:27:00 AM EDT [facility] Name Value Range Interpretation Code Description Data Haylee rce(s) Supporting Document(s) SARS coronavirus 2 RNA [Presence] in Res piratory specimen by TOMAS with probe detection NOT DETECTED [facility] This lab was reported by [facility] [place] [facility]. ID Date Data Source [id number] 01/11/2021 01:16:04 PM EDT [facility] [place] [facility] Name Value Range Interpretation Code Description Data Haylee rce(s) Supporting Document(s) SPECIMEN DESCRIPTION Lab [facility] of [facility] INFLUENZA A (NEG) [facility] [place] [facility] INFLUENZA B (NEG) [facility] [place] [facility] RSV (NEG) [facility] [place] [facility] COMMENT [facility] [place] [facility] THE [place] FDA HAS MADE THIS TEST AVAILABL EUNDER AN EMERGENCY USE AUTHORIZATION(EUA) FOR THE DETECTION AND/OR DIAGNOSISOF THE VIRUS THAT CAUSES COVID-19.PERFORMED AT [address] [place] [id number] COVID19 RESULT (NDET) [facility] [place] [facility] THIS ASSAY AMPLIFIES AND DETECTSTHE TARG ET RNA USING REAL-TIME PCR.TESTING PERFORMED ON [employer] GENEXPERTNEGATIVE 2019_NCOV RT-PCR RESULTS DONOT PRECLUDE 2019_NCOV INFECTION ANDSHOULD NOT BE USED THE SOLE BASISFOR PATIENT MANAGEMENT DECISIONS. FIRST TEST [facility] [place] [facility] EMPLOYED IN HLTHCARE Lab [facility] of [facility] SYMPTOMATIC [facility] [place] of [facility] DATE OF SYMPT ONSET [facility]OSPITALIZED [facility] [place] of [facility] ICU [facility] [place] of [facility] CONGREGATE CARE SET Lab [facility] [place] [place] [facility] ID Date Data Source [id number] 01/11/2021 09:42:28 AM EDT [facility] [place] [facility] Name Value Range Interpretation Code Description Data Haylee rce(s) Supporting Document(s) POC NOVA GLU 201 mg/dL (70-99) H [facility] [place] [facility] PERFORMED BY [facility] CLINICAL STAFF ID Date Data Source [id number] 01/11/2021 04:15:51 AM EDT [facility] [place] [facility] Name Value Range Interpretation Code Description Data Haylee rce(s) Supporting Document(s) SODIUM 141 mmol/L (136-145) [facility] [place] [facility] POTASSIUM 4.3 mmol/L (3.6-5.2) [facility] [place] [facility] CHLORIDE 107 mmol/L (100-108) [facility] [place] [facility] CO2 25 mmol/L (22-31) [facility] [place] [facility] ANION GAP 9 mmol/L (7-16) [facility] [place] [facility] UREA NITROGEN 29 mg/dL (7-24) H [facility] [place] [facility] CREATININE 1.63 mg/dL (0.60-1.00) H [facility] [place] [facility] BUN/CREAT RATIO 17.8 RATIO (10.0-20.0) [facility] GLUCOSE 153 mg/dL (70-99) H [facility] [place] [facility] CALCIUM 7.7 mg/dL (8.4-10.2) L [facility] [place] [facility] GFR 31 ml/min/1.73m2 (>59) L [facility] [place] [facility] GFR ([facility] AM) 38 ml/min/1.73m2 (>59) L [facility] [place] [facility] GFR INTERPRETATION [facility] --NORMAL KIDNEY FUNCTION OR MILD DISEASE - GFR >OR= 60CHRONIC KIDNEY DISEASE - GFR 15 - 59RENAL FAILURE - GFR <15 Est. GFR calculation based on the MDRDstudy equation, which assumes a steadystate for creatinine. Est. GFR should notbe used for medication dosing. ID Date Data Source [id number] 01/11/2021 03:29:28 AM EDT [facility] [place] [facility] Name Value Range Interpretation Code Description Data Haylee rce(s) Supporting Document(s) WBC 9.2 10*3/uL (4.1-11.0) [facility] [place] of [place] RBC 3.11 10*6/uL (4.00-5.40) L [facility] [place] [facility] HGB 9.6 g/dL (12.0-16.0) L [facility] [place] [facility] [place] HCT 29.6 % (36.0-47.0) L [facility] [place] [facility] MCV 95.1 fL (80.0-95.0) H [facility] [place] of [facility] MCH 30.9 pg (27.0-32.0) [facility] [place] [facility] MCHC 32.5 g/dL (32.0-36.0) [facility] [place] [facility] [place] RDW 15.0 % (10.5-14.5) H [facility] [place] of [facility] [place] PLT 382 10*3/uL (150-450) [facility] [place] [facility] MPV 10.6 fL (7.1-10.7) [facility] [place] [facility] ID Date Data Source [id number] 01/10/2021 07:53:07 PM EDT [facility] [place] [facility] Name Value Range Interpretation Code Description Data Haylee rce(s) Supporting Document(s) POC NOVA GLU 145 mg/dL (70-99) H [facility] [place] [facility] [place] [facility] CLINICAL STAFF ID Date Data Source [id number] 01/10/2021 03:27:59 PM EDT [facility] [place] [facility] Name Value Range Interpretation Code Description Data Haylee rce(s) Supporting Document(s) POC NOVA GLU 254 mg/dL (70-99) H [facility] [place] [facility] [place] [facility] CLINICAL STAFF ID Date Data Source [id number] 01/10/2021 11:03:56 AM EDT [facility] [place] [facility] Name Value Range Interpretation Code Description Data Haylee rce(s) Supporting Document(s) POC NOVA GLU 223 mg/dL (70-99) H [facility] [place] [facility] [place] [facility] CLINICAL STAFF ID Date Data Source [id number] 01/10/2021 04:13:12 AM EDT [facility] [place] [facility] Name Value Range Interpretation Code Description Data Haylee rce(s) Supporting Document(s) SODIUM 139 mmol/L (136-145) [facility] [place] [facility] POTASSIUM 4.5 mmol/L (3.6-5.2) [facility] [place] [facility] CHLORIDE 105 mmol/L (100-108) [facility] [place] [facility] CO2 25 mmol/L (22-31) [facility] [place] [facility] ANION GAP 9 mmol/L (7-16) [facility] [place] [facility] UREA NITROGEN 28 mg/dL (7-24) H [facility] [place] [facility] CREATININE 1.53 mg/dL (0.60-1.00) H [facility] [place] [facility] BUN/CREAT RATIO 18.3 RATIO (10.0-20.0) [facility] GLUCOSE 191 mg/dL (70-99) H [facility] [place] [facility] CALCIUM 7.7 mg/dL (8.4-10.2) L [facility] [place] [facility] GFR 34 ml/min/1.73m2 (>59) L [facility] [place] [facility] GFR ( AMER) 41 ml/min/1.73m2 (>59) L [facility] [place] [facility] GFR INTERPRETATION [facility] [place] --NORMAL KIDNEY FUNCTION OR MILD DISEASE - GFR >OR= 60CHRONIC KIDNEY DISEASE - GFR 15 - 59RENAL FAILURE - GFR <15 Est. GFR calculation based on the MDRDstudy equation, which assumes a steadystate for creatinine. Est. GFR should notbe used for medication dosing. ID Date Data Source [id number] 01/10/2021 02:58:25 AM EDT [facility] [place] of [facility] Name Value Range Interpretation Code Description Data Haylee rce(s) Supporting Document(s) WBC 11.5 10*3/uL (4.1-11.0) H [facility] [place] [facility] RBC 3.06 10*6/uL (4.00-5.40) L [facility] [place] [facility] HGB 9.5 g/dL (12.0-16.0) L [facility] [place] [facility] [place] HCT 29.1 % (36.0-47.0) L [facility] [place] [facility] MCV 94.9 fL (80.0-95.0) [facility] [place] [facility] MCH 31.0 pg (27.0-32.0) [facility] [place] [facility] MCHC 32.7 g/dL (32.0-36.0) [facility] [place] [facility] [place] RDW 14.9 % (10.5-14.5) H [facility] [place] of [facility] [place] PLT 363 10*3/uL (150-450) [facility] [place] of [facility] [place] MPV 10.6 fL (7.1-10.7) [facility] [place] of [facility] ID Date Data Source [id number] 01/09/2021 06:20:40 PM EDT [facility] [place] of [facility] Name Value Range Interpretation Code Description Data Haylee rce(s) Supporting Document(s) POC NOVA GLU 270 mg/dL (70-99) H [facility] [place] of [facility] PERFORMED BY [facility] CLINICAL STAFF ID Date Data Source [id number] 01/09/2021 05:00:00 PM EDT [facility] Name Value Range Interpretation Code Description Data Haylee rce(s) Supporting Document(s) SARS coronavirus 2 RNA [Presence] in Res piratory specimen by TOMAS with probe detection NOT DETECTED [facility] This lab was reported by [facility] [place] [facility]. ID Date Data Source [id number] 01/09/2021 09:58:19 PM EDT [facility] [place] christian LACY Name Value Range Interpretation Code Description Data Haylee rce(s) Supporting Document(s) SPECIMEN DESCRIPTION [facility] [place] COVID19 RESULT (NDET) [facility] [place] [facility] THIS ASSAY AMPLIFIES AND DETECTSTHE TARG ET RNA USING REAL-TIME PCR.TESTING PERFORMED ON THE [employer] COMMENT [facility] [place] UNDER AN EMERGENCY USE AUTHORIZATION(EUA ) FOR THE DETECTION AND/OR DIAGNOSISOF THE VIRUS THAT CAUSES COVID-19.NEGATIVE 2019_NCOV RT-PCR RESULTS DONOT PRECLUDE 2019_NCOV INFECTION ANDSHOULD NOT BE USED THE SOLE BASISFOR PATIENT MANAGEMENT DECISIONS. FIRST TEST [facility] [place] of [place] EMPLOYED IN HLTHCARE [facility] [place] SYMPTOMATIC [facility] [place] of [facility] DATE OF SYMPT ONSET [facility] HOSPITALIZED [facility] [place] [facility] ICU [facility] [place] [facility] [place] CONGREGATE CARE SET [facility] [place] [facility] ID Date Data Source [id number] 01/09/2021 12:45:29 PM EDT [address] [id number] Name: ABDIRAHMAN YIPDOB: 1950ex: FOrdering Provider: LATRICE MCPHERSONAuthorizing Prov: LATRICE CONKLINReferring Provider: Procedure Performed: / XR CHEST PORTABLEExam Date: 01/09/2021 12:42MRN: [id number] Number: [id number] Class: InpatientAccount #: [id number] for Exam: hypoxiaTechnique: AP portable view obtained.Comparison: January 07, 2021Findings: Persistent bilateral pleural effusions right greater than left and patchy bibasilar airspace disease right greater than left.Aeration left lower lobe is slightly improved.There is mild pulmonary vascular congestion.No pneumothorax is seen.The right IJ catheter extends into the right atrium.IMPRESSION: Persistent bibasilar airspace disease and pleural effusions right greater than left.Mild pulmonary vascular congestion.Report electronically signed by: MEL ROCHA On 01/09/2021 12:45 PMWorkstation ID: [id number] Name Value Range Interpretation Code Description Data Haylee rce(s) Supporting Document(s) ID Date Data Source [id number] 01/09/2021 12:41:26 PM EDT [facility] [place] [facility] Name Value Range Interpretation Code Description Data Haylee rce(s) Supporting Document(s) POC NOVA GLU 294 mg/dL (70-99) H [facility] [place] of [place] [facility] CLINICAL STAFF ID Date Data Source [id number] 01/09/2021 09:39:57 AM EDT [facility] [place] [facility] Name Value Range Interpretation Code Description Data Haylee rce(s) Supporting Document(s) POC NOVA GLU 219 mg/dL (70-99) H [facility] [place] [facility] CLINICAL STAFF ID Date Data Source [id number] 01/09/2021 04:15:19 AM EDT [facility] [place] [facility] Name Value Range Interpretation Code Description Data Haylee rce(s) Supporting Document(s) SODIUM 139 mmol/L (136-145) [facility] [place] [facility] POTASSIUM 4.5 mmol/L (3.6-5.2) [facility] [place] [facility] CHLORIDE 105 mmol/L (100-108) [facility] [place] [facility] CO2 26 mmol/L (22-31) [facility] [place] [facility] ANION GAP 8 mmol/L (7-16) [facility] [place] [facility] UREA NITROGEN 32 mg/dL (7-24) H [facility] [place] [facility] CREATININE 1.51 mg/dL (0.60-1.00) H [facility] [place] [facility] BUN/CREAT RATIO 21.2 RATIO (10.0-20.0) H [facility] GLUCOSE 144 mg/dL (70-99) H [facility] [place] [facility] CALCIUM 7.2 mg/dL (8.4-10.2) L [facility] [place] [facility] GFR 34 ml/min/1.73m2 (>59) L [facility] [place] [facility] GFR ( AMER) 41 ml/min/1.73m2 (>59) L [facility] [place] [facility] GFR INTERPRETATION [facility] --NORMAL KIDNEY FUNCTION OR MILD DISEASE - GFR >OR= 60CHRONIC KIDNEY DISEASE - GFR 15 - 59RENAL FAILURE - GFR <15 Est. GFR calculation based on the MDRDstudy equation, which assumes a steadystate for creatinine. Est. GFR should notbe used for medication dosing. ID Date Data Source [id number] 01/09/2021 03:20:00 AM EDT [facility] [place] of [facility] Name Value Range Interpretation Code Description Data Haylee rce(s) Supporting Document(s) WBC 12.8 10*3/uL (4.1-11.0) H [facility] [place] [facility] RBC 2.98 10*6/uL (4.00-5.40) L [facility] [place] [facility] HGB 9.2 g/dL (12.0-16.0) L [facility] [place] [facility] HCT 28.5 % (36.0-47.0) L [facility] [place] [facility] MCV 95.7 fL (80.0-95.0) H [facility] [place] [facility] MCH 31.0 pg (27.0-32.0) [facility] [place] [facility] MCHC 32.3 g/dL (32.0-36.0) [facility] [place] [facility] RDW 15.2 % (10.5-14.5) H [facility] [place] of [facility] PLT 299 10*3/uL (150-450) [facility] [place] [facility] MPV 10.6 fL (7.1-10.7) [facility] [place] [facility] ID Date Data Source [id number] 01/08/2021 10:00:41 PM EDT [facility] [place] [facility] Name Value Range Interpretation Code Description Data Haylee rce(s) Supporting Document(s) POC NOVA GLU 86 mg/dL (70-99) [facility] [place] [facility] [place] [facility] CLINICAL STAFF ID Date Data Source [id number] 01/08/2021 10:00:36 PM EDT [facility] [place] [facility] Name Value Range Interpretation Code Description Data Haylee rce(s) Supporting Document(s) POC NOVA GLU 59 mg/dL (70-99) L [facility] [place] [facility] [place] [facility] CLINICAL STAFF ID Date Data Source [id number] 01/08/2021 05:46:59 PM EDT [facility] [place] [facility] Name Value Range Interpretation Code Description Data Haylee rce(s) Supporting Document(s) POC NOVA GLU 307 mg/dL (70-99) H [facility] [place] [facility] [place] [facility] CLINICAL STAFF ID Date Data Source [id number] 01/08/2021 02:28:33 PM EDT [facility] [place] [facility] Name Value Range Interpretation Code Description Data Haylee rce(s) Supporting Document(s) POC NOVA GLU 292 mg/dL (70-99) H [facility] [place] [facility] [place] [facility] CLINICAL STAFF ID Date Data Source [id number] 01/08/2021 10:10:58 AM EDT [facility] [place] [facility] Name Value Range Interpretation Code Description Data Haylee rce(s) Supporting Document(s) POC NOVA GLU 174 mg/dL (70-99) H [facility] [place] [facility] [place] [facility] CLINICAL STAFF ID Date Data Source [id number] 01/07/2021 07:07:35 PM EDT [facility] [place] [facility] Name Value Range Interpretation Code Description Data Haylee rce(s) Supporting Document(s) POC NOVA GLU 115 mg/dL (70-99) H [facility] [place] [facility] [place] [facility] CLINICAL STAFF ID Date Data Source [id number] 01/07/2021 02:30:02 PM EDT [facility] [place] [facility] Name Value Range Interpretation Code Description Data Haylee rce(s) Supporting Document(s) POC NOVA GLU 350 mg/dL (70-99) H [facility] [place] [facility] [place] [facility] BY [facility] CLINICAL STAFF ID Date Data Source [id number] 01/08/2021 01:40:35 AM EDT [facility] [place] [facility] [place] SPEC EXP DATE 01/10/2021ATI ENT ABO/Rh A POSITIVEANTIBODY SCREEN NEGATIVETESTING SITE PERFORMED AT [address] [place] [id number] BANK COMMENT BLOOD TYPE CONFIRMED.UNIT NUMBER [id number] COMPONENT TYPE LEUKOPOOR RED CELLSUNIT DIVISION 00STATUS OF UNIT TRANSFUSEDTRANSFUSION STATUS OK TO TRANSFUSECROSSMATCH RESULT COMPATIBLE Name Value Range Interpretation Code Description Data Haylee rce(s) Supporting Document(s) TYPE AND SCREEN [facility] [place] [facility] ID Date Data Source [id number] 01/07/2021 10:47:25 AM EDT [facility] [place] [facility] Name Value Range Interpretation Code Description Data Haylee rce(s) Supporting Document(s) POC NOVA GLU 242 mg/dL (70-99) H [facility] [place] [facility] [place] [facility] BY [facility] CLINICAL STAFF ID Date Data Source [id number] 01/07/2021 08:21:21 AM EDT [address] [address]Yeqbuhd Name: ABDIRAHMAN YIPDOB: 1950ex: FOrdering Provider: SETH Woods Prov: SETH IYERReferralexx Provider: Procedure Performed: / XR CHEST PORTABLEExam Date: 01/07/2021 08:17MRN: [id number] Number: [id number] Class: InpatientAccount #: [id number] for Exam: PNATechnique: AP portable view obtained.Comparison: January 05, 2021Findings: Right jugular central venous catheter extends into the right atrium.Sternal wires and surgical clips overlie the mediastinum.There is persistent dense airspace consolidation right lung base and patchy airspace disease left lower lobe, which are very similar to the prior. There are small pleural effusions.No pneumothorax is seen.IMPRESSION: Persistent bibasilar infiltrates, right greater than left, and small pleural effusions.Report electronically signed by: MEL ROCHA On 01/07/2021 8:21 AMWorkstation ID: [id number] Name Value Range Interpretation Code Description Data Haylee rce(s) Supporting Document(s) ID Date Data Source [id number] 01/07/2021 08:33:42 AM EDT [facility] [place] [facility] Name Value Range Interpretation Code Description Data Haylee rce(s) Supporting Document(s) HCT 26.7 % (36.0-47.0) L [facility] [place] [facility] ID Date Data Source [id number] 01/07/2021 07:16:09 AM EDT [facility] [place] [facility] Name Value Range Interpretation Code Description Data Haylee rce(s) Supporting Document(s) WBC 13.5 10*3/uL (4.1-11.0) H [facility] [place] [facility] RBC 2.13 10*6/uL (4.00-5.40) L [facility] [place] [facility] HGB 6.8 g/dL (12.0-16.0) L [facility] [place] [facility] [place] [facility] [id number] [place] [address] ON 01/07/21 AT 7:15 [place] [id number] HCT 20.6 % (36.0-47.0) L [facility] [place] [facility] MCV 96.8 fL (80.0-95.0) H [facility] [place] [facility] MCH 32.1 pg (27.0-32.0) H [facility] [place] [facility] MCHC 33.2 g/dL (32.0-36.0) [facility] [place] [facility] RDW 15.3 % (10.5-14.5) H [facility] [place] [facility] [place] PLT 239 10*3/uL (150-450) [facility] [place] [facility] MPV 10.5 fL (7.1-10.7) [facility] [place] [facility] ID Date Data Source [id number] 01/07/2021 06:42:43 AM EDT [facility] [place] [facility] Name Value Range Interpretation Code Description Data Haylee rce(s) Supporting Document(s) SODIUM 141 mmol/L (136-145) [facility] [place] [facility] POTASSIUM 4.1 mmol/L (3.6-5.2) [facility] [place] [facility] CHLORIDE 106 mmol/L (100-108) [facility] [place] [facility] CO2 28 mmol/L (22-31) [facility] [place] [facility] ANION GAP 7 mmol/L (7-16) [facility] [place] [facility] UREA NITROGEN 44 mg/dL (7-24) H [facility] [place] [facility] CREATININE 1.50 mg/dL (0.60-1.00) H [facility] [place] [facility] BUN/CREAT RATIO 29.3 RATIO (10.0-20.0) [facility] GLUCOSE 258 mg/dL (70-99) H [facility] [place] [facility] CALCIUM 7.1 mg/dL (8.4-10.2) L [facility] [place] [facility] GFR 34 ml/min/1.73m2 (>59) L [facility] [place] [facility] GFR ( AMER) 42 ml/min/1.73m2 (>59) L [facility] [place] [facility] GFR INTERPRETATION [facility] --NORMAL KIDNEY FUNCTION OR MILD DISEASE - GFR >OR= 60CHRONIC KIDNEY DISEASE - GFR 15 - 59RENAL FAILURE - GFR <15 Est. GFR calculation based on the MDRDstudy equation, which assumes a steadystate for creatinine. Est. GFR should notbe used for medication dosing. ID Date Data Source [id number] 01/06/2021 06:47:43 PM EDT [facility] [place] [facility] Name Value Range Interpretation Code Description Data Haylee rce(s) Supporting Document(s) POTASSIUM 4.0 mmol/L (3.6-5.2) [facility] [place] [facility] ID Date Data Source [id number] 01/06/2021 06:04:07 PM EDT [facility] [place] [facility] Name Value Range Interpretation Code Description Data Haylee rce(s) Supporting Document(s) POC NOVA GLU 141 mg/dL (70-99) H [facility] [place] [facility] [place] [facility] CLINICAL STAFF ID Date Data Source [id number] 01/06/2021 12:20:59 PM EDT [facility] [place] [facility] Name Value Range Interpretation Code Description Data Haylee rce(s) Supporting Document(s) POC NOVA GLU 245 mg/dL (70-99) H [facility] [place] [facility] [place] [facility] CLINICAL STAFF ID Date Data Source [id number] 01/06/2021 08:52:53 AM EDT [facility] [place] [facility] Name Value Range Interpretation Code Description Data Haylee rce(s) Supporting Document(s) POC NOVA GLU 188 mg/dL (70-99) H [facility] [place] [facility] [place] [facility] BY [facility] CLINICAL STAFF ID Date Data Source [id number] 01/06/2021 07:56:00 AM EDT [facility] Name Value Range Interpretation Code Description Data Haylee rce(s) Supporting Document(s) SARS coronavirus 2 RNA [Presence] in Res piratory specimen by TOMAS with probe detection NOT DETECTED [facility] This lab was reported by [facility] [place] [facility]. ID Date Data Source [id number] 01/06/2021 09:24:59 AM EDT [facility] [place] [facility] Name Value Range Interpretation Code Description Data Haylee rce(s) Supporting Document(s) SPECIMEN DESCRIPTION [facility] INFLUENZA A (NEG) [facility] [place] [facility] INFLUENZA B (NEG) [facility] [place] [facility] RSV (NEG) [facility] [place] [facility] COMMENT [facility] [place] [facility] THE [place] FDA HAS MADE THIS TEST AVAILABL EUNDER AN EMERGENCY USE AUTHORIZATION(EUA) FOR THE DETECTION AND/OR DIAGNOSISOF THE VIRUS THAT CAUSES COVID-19.PERFORMED AT [address] [place] [id number] COVID19 RESULT (NDET) [facility] [place] [facility] THIS ASSAY AMPLIFIES AND DETECTSTHE TARG ET RNA USING REAL-TIME PCR.TESTING PERFORMED ON Way[employer] GENEXPERTNEGATIVE 2019_NCOV RT-PCR RESULTS DONOT PRECLUDE 2019_NCOV INFECTION ANDSHOULD NOT BE USED THE SOLE BASISFOR PATIENT MANAGEMENT DECISIONS. FIRST TEST [facility] [place] [facility] EMPLOYED IN HLTHCARE [facility] SYMPTOMATIC [facility] [place] [facility] DATE OF SYMPT ONSET [facility] HOSPITALIZED [facility] [place] [facility] ICU [facility] [place] [facility] CONGREGATE CARE SET [facility] [place] [place] [facility] [place] [facility] ID Date Data Source [id number] 01/06/2021 04:19:47 AM EDT [facility] [place] [facility] Name Value Range Interpretation Code Description Data Haylee rce(s) Supporting Document(s) SODIUM 142 mmol/L (136-145) [facility] [place] [facility] POTASSIUM 4.8 mmol/L (3.6-5.2) [facility] [place] [facility] CHLORIDE 109 mmol/L (100-108) H [facility] [place] [facility] CO2 29 mmol/L (22-31) [facility] [place] [facility] ANION GAP 4 mmol/L (7-16) L [facility] [place] [facility] UREA NITROGEN 48 mg/dL (7-24) H [facility] [place] [facility] CREATININE 1.44 mg/dL (0.60-1.00) H [facility] [place] [facility] BUN/CREAT RATIO 33.3 RATIO (10.0-20.0) H [facility] GLUCOSE 128 mg/dL (70-99) H [facility] [place] [facility] CALCIUM 7.6 mg/dL (8.4-10.2) L [facility] [place] [facility] GFR 36 ml/min/1.73m2 (>59) L [facility] [place] [facility] GFR ( AMER) 44 ml/min/1.73m2 (>59) L [facility] [place] [facility] GFR INTERPRETATION [facility] --NORMAL KIDNEY FUNCTION OR MILD DISEASE - GFR >OR= 60CHRONIC KIDNEY DISEASE - GFR 15 - 59RENAL FAILURE - GFR <15 Est. GFR calculation based on the MDRDstudy equation, which assumes a steadystate for creatinine. Est. GFR should notbe used for medication dosing. ID Date Data Source [id number] 01/06/2021 04:06:22 AM EDT [facility] [place] [facility] Name Value Range Interpretation Code Description Data Haylee rce(s) Supporting Document(s) WBC 14.0 10*3/uL (4.1-11.0) H [facility] [place] [facility] RBC 2.71 10*6/uL (4.00-5.40) L [facility] [place] [facility] HGB 8.5 g/dL (12.0-16.0) L [facility] [place] [facility] HCT 26.2 % (36.0-47.0) L [facility] [place] [facility] MCV 96.8 fL (80.0-95.0) H [facility] [place] [facility] MCH 31.3 pg (27.0-32.0) [facility] [place] [facility] MCHC 32.3 g/dL (32.0-36.0) [facility] [place] [facility] RDW 15.4 % (10.5-14.5) H [facility] [place] [facility] PLT 256 10*3/uL (150-450) [facility] [place] [facility] MPV 10.6 fL (7.1-10.7) [facility] [place] [facility] ID Date Data Source [id number] 01/06/2021 03:05:47 AM EDT [facility] [place] [facility] Name Value Range Interpretation Code Description Data Haylee rce(s) Supporting Document(s) POC NOVA GLU 145 mg/dL (70-99) H [facility] [place] [facility] [place] [facility] CLINICAL STAFF ID Date Data Source [id number] 01/05/2021 10:09:48 PM EDT [facility] [place] [facility] Name Value Range Interpretation Code Description Data Haylee rce(s) Supporting Document(s) SPECIMEN DESCRIPTION [facility] C DIFF TOXIN B (NEG) [facility] [place] [facility] 027 NAP1 B1 (NEG) [facility] [place] [facility] COMMENT [facility] [place] [facility] IS CLINICALLY INDICATED, PLEASE CONTA CT THE MICROBIOLOGY LABORATORY ([phone]) WITHIN 3 DAYS OF THIS REPORT. ID Date Data Source [id number] 01/05/2021 04:56:02 PM EDT [facility] [place] [facility] Name Value Range Interpretation Code Description Data Haylee rce(s) Supporting Document(s) POC NOVA GLU 192 mg/dL (70-99) H [facility] [place] [facility] [place] [facility] CLINICAL STAFF ID Date Data Source [id number] 01/05/2021 01:59:11 PM EDT [address] [address]Uffwudg Name: ABDIRAHMAN YIPDOB: 1950ex: FOrdering Provider: LATRICE CONKLINAuthorizing Prov: LATRICE CONKLINReferring Provider: Procedure Performed: / XR CHEST PORTABLEExam Date: 01/05/2021 13:05MRN: [id number] Number: [id number] Class: InpatientAccount #: [id number] for Exam: sobTechnique: AP portable view obtained.Comparison: Chest x-ray one day priorFindings: Right IJ central line with catheter tip in region of right atrium and unchanged. No pneumothorax. Low lung volumes. Worsening airspace disease at the lung bases with probable small bibasilar effusions. Cardiomediastinal contours are stable. Degenerative changes in the spine.IMPRESSION: Worsening airspace disease at the lung bases, likely atelectasis and/or pneumonia with small bibasilar effusions. Right IJ central line tip overlies right atrium. Recommend pulling back approximately 3 to 4 cm for optimal positioning.Report electronically signed by: [place] Hull On 01/05/2021 1:59 PMWorkstation ID: [id number] Name Value Range Interpretation Code Description Data Haylee rce(s) Supporting Document(s) ID Date Data Source [id number] 01/05/2021 11:13:30 AM EDT [facility] [place] [facility] Name Value Range Interpretation Code Description Data Haylee rce(s) Supporting Document(s) POC NOVA GLU 118 mg/dL (70-99) H [facility] [place] [facility] [place] [facility] CLINICAL STAFF ID Date Data Source [id number] 01/05/2021 07:11:21 AM EDT [facility] [place] [facility] Name Value Range Interpretation Code Description Data Haylee rce(s) Supporting Document(s) POC NOVA GLU 112 mg/dL (70-99) H [facility] [place] [facility] [place] [facility] CLINICAL STAFF ID Date Data Source [id number] 01/05/2021 06:43:25 AM EDT [facility] [place] [facility] Name Value Range Interpretation Code Description Data Haylee rce(s) Supporting Document(s) POC NOVA GLU 135 mg/dL (70-99) H [facility] [place] [facility] [place] [facility] CLINICAL STAFF ID Date Data Source [id number] 01/05/2021 06:16:53 AM EDT [facility] [place] [facility] Name Value Range Interpretation Code Description Data Haylee rce(s) Supporting Document(s) POC NOVA GLU 32 mg/dL (70-99) L [facility] [place] [facility] [place] [facility] CLINICAL STAFF ID Date Data Source [id number] 01/05/2021 06:07:37 AM EDT [facility] [place] [facility] Name Value Range Interpretation Code Description Data Haylee rce(s) Supporting Document(s) SODIUM 148 mmol/L (136-145) H [facility] [place] [facility] POTASSIUM 4.6 mmol/L (3.6-5.2) [facility] [place] [facility] CHLORIDE 112 mmol/L (100-108) H [facility] [place] [facility] CO2 27 mmol/L (22-31) [facility] [place] [facility] ANION GAP 9 mmol/L (7-16) [facility] [place] [facility] UREA NITROGEN 53 mg/dL (7-24) H [facility] [place] [facility] CREATININE 1.40 mg/dL (0.60-1.00) H [facility] [place] [facility] BUN/CREAT RATIO 37.9 RATIO (10.0-20.0) H [facility] GLUCOSE 31 mg/dL (70-99) L [facility] [place] [facility] ALERTED CRITICAL RESULT TOTIM (30066) ON D3 AT 0606 [place] 01.05.21 [place] [address] CALCIUM 8.1 mg/dL (8.4-10.2) L [facility] [place] [facility] GFR 37 ml/min/1.73m2 (>59) L [facility] [place] [facility] GFR ([facility]) 45 ml/min/1.73m2 (>59) L [facility] [place] [facility] GFR INTERPRETATION [facility] --NORMAL KIDNEY FUNCTION OR MILD DISEASE - GFR >OR= 60CHRONIC KIDNEY DISEASE - GFR 15 - 59RENAL FAILURE - GFR <15 Est. GFR calculation based on the MDRDstudy equation, which assumes a steadystate for creatinine. Est. GFR should notbe used for medication dosing. ID Date Data Source [id number] 01/05/2021 05:47:09 AM EDT [facility] [place] [facility] Name Value Range Interpretation Code Description Data Haylee rce(s) Supporting Document(s) WBC 18.1 10*3/uL (4.1-11.0) H [facility] [place] [facility] RBC 2.97 10*6/uL (4.00-5.40) L [facility] [place] [facility] HGB 9.3 g/dL (12.0-16.0) L [facility] [place] [facility] [place] HCT 28.9 % (36.0-47.0) L [facility] [place] [facility] MCV 97.4 fL (80.0-95.0) H [facility] [place] [facility] MCH 31.3 pg (27.0-32.0) [facility] [place] [facility] MCHC 32.1 g/dL (32.0-36.0) [facility] [place] [facility] RDW 15.8 % (10.5-14.5) H [facility] [place] [facility] [place] PLT 211 10*3/uL (150-450) [facility] [place] [facility] MPV 10.5 fL (7.1-10.7) [facility] [place] [facility] ID Date Data Source [id number] 01/04/2021 07:14:40 PM EDT [facility] [place] [facility] Name Value Range Interpretation Code Description Data Haylee rce(s) Supporting Document(s) POC NOVA GLU 133 mg/dL (70-99) H [facility] [place] [facility] [place] [facility] CLINICAL STAFF ID Date Data Source [id number] 01/04/2021 01:33:01 PM EDT [facility] [place] [facility] Name Value Range Interpretation Code Description Data Haylee rce(s) Supporting Document(s) POC NOVA GLU 128 mg/dL (70-99) H [facility] [place] [facility] [place] [facility] CLINICAL STAFF ID Date Data Source [id number] 01/04/2021 10:39:30 AM EDT [facility] [place] [facility] Name Value Range Interpretation Code Description Data Haylee rce(s) Supporting Document(s) POC NOVA GLU 126 mg/dL (70-99) H [facility] [place] [facility] [place] [facility] CLINICAL STAFF ID Date Data Source [id number] 01/04/2021 10:07:26 AM EDT [facility] [place] [facility] Name Value Range Interpretation Code Description Data Haylee rce(s) Supporting Document(s) POC NOVA GLU 116 mg/dL (70-99) H [facility] [place] [facility] [place] [facility] CLINICAL STAFF ID Date Data Source [id number] 01/04/2021 09:42:55 AM EDT [place] [address]Ngkwdzz Name: ABDIRAHMAN YIPDOB: 1950ex: FOrdering Provider: SKIP CERVANTESAuthorizing Prov: SKIP CERVANTESReferralexx Provider: Procedure Performed: / XR CHEST PORTABLEExam Date: 01/04/2021 09:33MRN: [id number] Number: [id number] Class: InpatientAccount #: [id number] for Exam: edemaTechnique: AP portable view obtained.Comparison: December 30, 2020Findings: Endotracheal tube, nasogastric tube removed. Relatively good preservation of lung volumes. There is a right pleural effusion. There is no pneumothorax. Right jugular centimeters catheter terminates in the right atrium. Degenerative changes are seen in the spine and shoulders. Free air is not seen beneath the diaphragms..IMPRESSION: I do not see significant pulmonary edema. Heart size is mildly enlarged and the patient is status post sternotomy. There is no pneumothorax. There is a right pleural effusion and some of the fusion is probably a subpulmonic location.Right jugular centimeters catheter again terminates in the right atrium. No pneumothorax is seen.Continued follow- up is recommended.Report electronically signed by: ULYSSES RAZA On 01/04/2021 9:42 AMWorkstation ID: [id number] Name Value Range Interpretation Code Description Data Haylee rce(s) Supporting Document(s) ID Date Data Source [id number] 01/04/2021 08:17:29 AM EDT [facility] [place] [facility] Name Value Range Interpretation Code Description Data Haylee rce(s) Supporting Document(s) POC NOVA GLU 148 mg/dL (70-99) H [facility] [place] [facility] [place] [facility] CLINICAL STAFF ID Date Data Source [id number] 01/04/2021 06:38:24 AM EDT [facility] [place] [facility] Name Value Range Interpretation Code Description Data Haylee rce(s) Supporting Document(s) POC NOVA GLU 149 mg/dL (70-99) H [facility] [place] [facility] [place] [facility] CLINICAL STAFF ID Date Data Source [id number] 01/04/2021 04:42:21 AM EDT [facility] [place] [facility] Name Value Range Interpretation Code Description Data Haylee rce(s) Supporting Document(s) POC NOVA GLU 163 mg/dL (70-99) H [facility] [place] [facility]FOR[facility] BY [facility] CLINICAL STAFF ID Date Data Source [id number] 01/04/2021 05:52:56 AM EDT [facility] [place] [facility] Name Value Range Interpretation Code Description Data Haylee rce(s) Supporting Document(s) TOTAL PROTEIN 4.7 g/dL (6.4-8.2) L [facility] [place] [facility] ALBUMIN 1.6 g/dL (3.2-4.5) L [facility] [place] [facility] GLOBULIN 3.1 g/dL (2.7-4.3) [facility] [place] [facility] ALB/GLOB RATIO 0.5 RATIO [facility] [place] [facility] BILIRUBIN,TOTAL 0.5 mg/dL (0.0-1.0) [facility] [place] [facility] PLEASE NOTE:Total bilirubin results may be falselyelevated in patients taking Eltrombopag. BILIRUBIN,CONJUGATED 0.3 mg/dL (0.0-0.3) [facility] BILIRUBIN,UNCONJ. 0.2 mg/dL (0.0-0.7) [facility] [place] [facility] ALKALINE PHOSPHATASE 118 U/L (45-117) H [facility] AST (SGOT) 31 U/L (11-39) [facility] [place] [facility] ALT (SGPT) 42 U/L (12-78) [facility] [place] [facility] ID Date Data Source [id number] 01/04/2021 05:52:56 AM EDT [facility] [place] [facility] Name Value Range Interpretation Code Description Data Haylee rce(s) Supporting Document(s) TRIGLYCERIDE 193 mg/dL (30-200) [facility] [place] [facility] [place] ID Date Data Source [id number] 01/04/2021 05:52:56 AM EDT [facility] [place] [facility] Name Value Range Interpretation Code Description Data Haylee rce(s) Supporting Document(s) MAGNESIUM 1.8 mg/dL (1.7-2.4) [facility] [place] [facility] ID Date Data Source [id number] 01/04/2021 05:52:56 AM EDT [facility] [place] [facility] Name Value Range Interpretation Code Description Data Haylee rce(s) Supporting Document(s) PHOSPHORUS 3.1 mg/dL (2.5-4.5) [facility] [place] [facility] ID Date Data Source [id number] 01/04/2021 05:52:56 AM EDT [facility] [place] [facility] Name Value Range Interpretation Code Description Data Haylee rce(s) Supporting Document(s) SODIUM 146 mmol/L (136-145) H [facility] [place] [facility] POTASSIUM 3.6 mmol/L (3.6-5.2) [facility] [place] [facility] CHLORIDE 110 mmol/L (100-108) H [facility] [place] [facility] CO2 26 mmol/L (22-31) [facility] [place] [facility] ANION GAP 10 mmol/L (7-16) [facility] [place] [facility] UREA NITROGEN 56 mg/dL (7-24) H [facility] [place] [facility] CREATININE 1.39 mg/dL (0.60-1.00) H [facility] [place] [facility] BUN/CREAT RATIO 40.3 RATIO (10.0-20.0) H [facility] GLUCOSE 159 mg/dL (70-99) H [facility] [place] [facility] CALCIUM 7.9 mg/dL (8.4-10.2) L [facility] [place] [facility] GFR 38 ml/min/1.73m2 (>59) L [facility] [place] [facility] GFR ( AMER) 45 ml/min/1.73m2 (>59) L [facility] [place] [facility] GFR INTERPRETATION [facility] --NORMAL KIDNEY FUNCTION OR MILD DISEASE - GFR >OR= 60CHRONIC KIDNEY DISEASE - GFR 15 - 59RENAL FAILURE - GFR <15 Est. GFR calculation based on the MDRDstudy equation, which assumes a steadystate for creatinine. Est. GFR should notbe used for medication dosing. ID Date Data Source [id number] 01/04/2021 05:45:00 AM EDT [facility] [place] [facility] Name Value Range Interpretation Code Description Data Haylee rce(s) Supporting Document(s) CALCIUM IONIZED 5.08 mg/dL (4.64-5.28) [facility] IONIZED CALCIUM NORMALIZED TO PH 7.40 AN D 37 DEGREES C. ID Date Data Source [id number] 01/04/2021 05:10:23 AM EDT [facility] [place] [facility] Name Value Range Interpretation Code Description Data Haylee rce(s) Supporting Document(s) WBC 16.3 10*3/uL (4.1-11.0) H [facility] [place] [facility] RBC 3.21 10*6/uL (4.00-5.40) L [facility] [place] [facility] HGB 10.0 g/dL (12.0-16.0) L [facility] [place] [facility] HCT 30.7 % (36.0-47.0) L [facility] [place] [facility] MCV 95.5 fL (80.0-95.0) H [facility] [place] [facility] MCH 31.1 pg (27.0-32.0) [facility] [place] [facility] MCHC 32.5 g/dL (32.0-36.0) [facility] [place] [facility] RDW 16.0 % (10.5-14.5) H [facility] [place] [facility] PLT 197 10*3/uL (150-450) [facility] [place] [facility] MPV 10.6 fL (7.1-10.7) [facility] [place] [facility] ID Date Data Source [id number] 01/04/2021 02:14:54 AM EDT [facility] [place] [facility] Name Value Range Interpretation Code Description Data Haylee rce(s) Supporting Document(s) POC NOVA GLU 189 mg/dL (70-99) H [facility] [place] [facility] [place] [facility] CLINICAL STAFF ID Date Data Source [id number] 01/04/2021 12:45:18 AM EDT [facility] [place] [facility] Name Value Range Interpretation Code Description Data Haylee rce(s) Supporting Document(s) POC NOVA GLU 193 mg/dL (70-99) H [facility] [place] [facility] [place] [facility] CLINICAL STAFF ID Date Data Source [id number] 01/03/2021 10:21:30 PM EDT [facility] [place] [facility] Name Value Range Interpretation Code Description Data Haylee rce(s) Supporting Document(s) POTASSIUM 3.7 mmol/L (3.6-5.2) [facility] [place] [facility] ID Date Data Source [id number] 01/03/2021 08:12:41 PM EDT [facility] [place] [facility] Name Value Range Interpretation Code Description Data Haylee rce(s) Supporting Document(s) POC NOVA GLU 140 mg/dL (70-99) H [facility] [place] [facility] [place] [facility]ICAL STAFF ID Date Data Source [id number] 01/03/2021 06:57:11 PM EDT [facility] Name Value Range Interpretation Code Description Data Haylee rce(s) Supporting Document(s) POC NOVA GLU 108 mg/dL (70-99) H [facility] [facility] [place] [facility]AFF ID Date Data Source [id number] 01/03/2021 06:29:36 PM EDT [facility] Name Value Range Interpretation Code Description Data Haylee rce(s) Supporting Document(s) POC NOVA GLU 125 mg/dL (70-99) [facility] [place] [facility] [place] [facility] CLINICAL STAFF ID Date Data Source [id number] 01/03/2021 03:57:39 PM EDT [facility] [place] [facility] Name Value Range Interpretation Code Description Data Haylee rce(s) Supporting Document(s) POC NOVA GLU 186 mg/dL (70-99) [facility] [place] [facility] [place] [facility] CLINICAL STAFF ID Date Data Source [id number] 01/03/2021 02:14:04 PM EDT [facility] [place] [facility] Name Value Range Interpretation Code Description Data Hayele rce(s) Supporting Document(s) POC NOVA GLU 164 mg/dL (70-99) [facility] [place] [facility] [place] [facility] CLINICAL STAFF ID Date Data Source [id number] 01/03/2021 12:06:32 PM EDT [facility] [place] [facility] Name Value Range Interpretation Code Description Data Haylee rce(s) Supporting Document(s) POC NOVA GLU 175 mg/dL (70-99) [facility] [place] [facility] [place] [facility] CLINICAL STAFF ID Date Data Source [id number] 01/03/2021 12:08:13 PM EDT [facility] [place] [facility] Name Value Range Interpretation Code Description Data Haylee rce(s) Supporting Document(s) POTASSIUM 3.4 mmol/L (3.6-5.2) L [facility] [place] [facility] ID Date Data Source [id number] 01/05/2021 01:02:32 PM EDT [facility] [place] [facility] Name Value Range Interpretation Code Description Data Haylee rce(s) Supporting Document(s) POC NOVA GLU 176 mg/dL (70-99) [facility] [place] [facility] [place] [facility] CLINICAL STAFF ID Date Data Source [id number] 01/03/2021 08:28:56 AM EDT [facility] [place] [facility] Name Value Range Interpretation Code Description Data Haylee rce(s) Supporting Document(s) POC NOVA GLU 176 mg/dL (70-99) [facility] [place] [facility] [place] [facility] CLINICAL STAFF ID Date Data Source [id number] 01/03/2021 06:38:28 AM EDT [facility] [place] [facility] Name Value Range Interpretation Code Description Data Haylee rce(s) Supporting Document(s) POC NOVA GLU 189 mg/dL (70-99) [facility] [place] [facility] [place] [facility] CLINICAL STAFF ID Date Data Source [id number] 01/03/2021 05:05:22 AM EDT [facility] [place] [facility] Name Value Range Interpretation Code Description Data Haylee rce(s) Supporting Document(s) POC NOVA GLU 209 mg/dL (70-99) [facility] [place] [facility] [place] [facility] CLINICAL STAFF ID Date Data Source [id number] 01/03/2021 04:29:10 AM EDT [facility] [place] [facility] Name Value Range Interpretation Code Description Data Haylee rce(s) Supporting Document(s) CALCIUM IONIZED 4.92 mg/dL (4.64-5.28) [facility] IONIZED CALCIUM NORMALIZED TO PH 7.40 AN D 37 DEGREES C. ID Date Data Source [id number] 01/03/2021 04:28:10 AM EDT [facility] [place] [facility] Name Value Range Interpretation Code Description Data Haylee rce(s) Supporting Document(s) SODIUM 144 mmol/L (136-145) [facility] [place] [facility] POTASSIUM 3.1 mmol/L (3.6-5.2) [facility] [place] [facility] CHLORIDE 110 mmol/L (100-108) [facility] [place] [facility] CO2 24 mmol/L (22-31) [facility] [place] [facility] ANION GAP 10 mmol/L (7-16) [facility] [place] [facility] UREA NITROGEN 63 mg/dL (7-24) [facility] [place] [facility] CREATININE 1.71 mg/dL (0.60-1.00) [facility] [place] [facility] BUN/CREAT RATIO 36.8 RATIO (10.0-20.0) [facility] GLUCOSE 182 mg/dL (70-99) [facility] [place] [facility] CALCIUM 7.5 mg/dL (8.4-10.2) L [facility] [place] [facility] GFR 30 ml/min/1.73m2 (>59) L [facility] [place] [facility] GFR ( AMER) 36 ml/min/1.73m2 (>59) L [facility] [place] [facility] GFR INTERPRETATION [facility] --NORMAL KIDNEY FUNCTION OR MILD DISEASE - GFR >OR= 60CHRONIC KIDNEY DISEASE - GFR 15 - 59RENAL FAILURE - GFR <15 Est. GFR calculation based on the MDRDstudy equation, which assumes a steadystate for creatinine. Est. GFR should notbe used for medication dosing. ID Date Data Source [id number] 01/03/2021 04:28:10 AM EDT [facility] [place] [facility] Name Value Range Interpretation Code Description Data Haylee rce(s) Supporting Document(s) PHOSPHORUS 2.7 mg/dL (2.5-4.5) [facility] [place] [facility] ID Date Data Source [id number] 01/03/2021 04:28:10 AM EDT [facility] [place] [facility] Name Value Range Interpretation Code Description Data Haylee rce(s) Supporting Document(s) MAGNESIUM 2.1 mg/dL (1.7-2.4) [facility] [place] [facility] ID Date Data Source [id number] 01/03/2021 03:53:20 AM EDT [facility] [place] [facility] Name Value Range Interpretation Code Description Data Haylee rce(s) Supporting Document(s) WBC 11.7 10*3/uL (4.1-11.0) [facility] [place] [facility] RBC 2.87 10*6/uL (4.00-5.40) L [facility] [place] [facility] HGB 9.0 g/dL (12.0-16.0) [facility] [place] [facility] HCT 27.4 % (36.0-47.0) [facility] [place] [facility] MCV 95.3 fL (80.0-95.0) [facility] [place] [facility] MCH 31.4 pg (27.0-32.0) [facility] [place] [facility] MCHC 33.0 g/dL (32.0-36.0) [facility] [place] [facility] RDW 16.0 % (10.5-14.5) [facility] [place] [facility] PLT 140 10*3/uL (150-450) [facility] [place] [facility] MPV 11.0 fL (7.1-10.7) [facility] [place] [facility] ID Date Data Source [id number] 01/03/2021 02:10:47 AM EDT [facility] [place] [facility] Name Value Range Interpretation Code Description Data Haylee rce(s) Supporting Document(s) POC NOVA GLU 215 mg/dL (70-99) [facility] [place] [facility] [place] [facility] CLINICAL STAFF ID Date Data Source [id number] 01/03/2021 12:12:17 AM EDT [facility] [place] [facility] Name Value Range Interpretation Code Description Data Haylee rce(s) Supporting Document(s) POC NOVA GLU 208 mg/dL (70-99) [facility] [place] [facility] [place] [facility] CLINICAL STAFF ID Date Data Source [id number] 01/02/2021 10:04:16 PM EDT [facility] [place] [facility] Name Value Range Interpretation Code Description Data Haylee rce(s) Supporting Document(s) POC NOVA GLU 206 mg/dL (70-99) [facility] [place] [facility] [place] [facility] CLINICAL STAFF ID Date Data Source [id number] 01/02/2021 08:07:44 PM EDT [facility] [place] [facility] Name Value Range Interpretation Code Description Data Haylee rce(s) Supporting Document(s) POC NOVA GLU 181 mg/dL (70-99) [facility] [place] [facility] [place] [facility] CLINICAL STAFF ID Date Data Source [id number] 01/02/2021 06:13:12 PM EDT [facility] [place] [facility] Name Value Range Interpretation Code Description Data Haylee rce(s) Supporting Document(s) POC NOVA GLU 147 mg/dL (70-99) [facility] [place] [facility] [place] [facility] CLINICAL STAFF ID Date Data Source [id number] 01/02/2021 04:52:08 PM EDT [facility] [place] [facility] Name Value Range Interpretation Code Description Data Haylee rce(s) Supporting Document(s) POC NOVA GLU 147 mg/dL (70-99) [facility] [place] [facility] [place] [facility] CLINICAL STAFF ID Date Data Source [id number] 01/02/2021 02:53:04 PM EDT [facility] [place] [facility] Name Value Range Interpretation Code Description Data Haylee rce(s) Supporting Document(s) POC NOVA GLU 169 mg/dL (70-99) [facility] [place] [facility] [place] [facility] CLINICAL STAFF ID Date Data Source [id number] 01/02/2021 11:59:33 AM EDT [facility] [place] [facility] Name Value Range Interpretation Code Description Data Haylee rce(s) Supporting Document(s) POC NOVA GLU 169 mg/dL (70-99) [facility] [place] [facility] [place] [facility] CLINICAL STAFF ID Date Data Source [id number] 01/02/2021 10:21:21 AM EDT [address] [id number] Name: ABDIRAHMAN YIPDOB: 1950ex: FOrdering Provider: SKIP CERVANTESAuthorizing Prov: SKIP CERVANTESReferralexx Provider: Procedure Performed: / XR CHEST PORTABLEExam Date: 01/02/2021 10:09MRN: [id number] Number: [id number] Class: InpatientAccount #: [id number] for Exam: effusionTechnique: AP portable view obtained.Comparison: Portable chest x-ray December 30, 2020. Chest 2 views December 27, 2020.Findings: Endotracheal tube terminates approximately 2.5 cm from the alec. Nasogastric tube terminates in the stomach but the sidehole is in the stomach. Right jugular centimeters catheter terminates at the cavoatrial junction. No pneumothorax. Smaller lung volumes and increased atelectatic changes bilaterally. Diaphragms are sharply defined. No obvious pleural effusion or free air beneath the diaphragms. Surgical clips again seen in the abdomen. The patient is status post sternotomy. There is calcification of the descending thoracic aorta.IMPRESSION: No pleural effusion or obvious pericardial effusion. Patient status post sternotomy.Smaller lung volumes. Endotracheal tube, nasogastric tube and right jugular central venous catheter remain in good position. There is no pneumothorax.Report electronically signed by: ULYSSES RAZA On 01/02/2021 10:21 AMWorkstation ID: [id number] Name Value Range Interpretation Code Description Data Haylee rce(s) Supporting Document(s) ID Date Data Source [id number] 01/02/2021 09:16:23 AM EDT [facility] [place] [facility] Name Value Range Interpretation Code Description Data Haylee rce(s) Supporting Document(s) POC SOURCE [facility] [place] [facility] PUNCTURE SITE [facility] [place] [facility] O2 THERAPY [facility] [place] [facility] POC FIO2 40 [facility] [place] [facility] EDD TEST [facility] [place] [facility] MODE [facility] [place] [facility] PEEP/MAP 8 CM H2O [facility] [place] [facility] PRESSURE SUPPORT 8 CM H2O [facility] [place] [facility] SP RATE 27 BMP [facility] [place] [facility] POC PH 7.41 pH (7.35-7.45) [facility] [place] [facility] P[facility] PCO2 34.4 MMHG (32.0-48.0) [facility] [place] [facility] P[facility] PO2 51 MMHG (83-108) L [facility] [place] [facility] POC SAT O2 86 % (95-99) L [facility] [place] [facility] POC BASE DEFICIT 2 MMOL/L (0-2) [facility] [place] [facility] POC HCO3 21.9 MMOL/L (21.0-29.0) [facility] [place] [facility] POC TOTAL CO2 23 MMOL/L (23.0-32.0) [facility] [place] [facility] [facility] CLINICAL STAFF ID Date Data Source [id number] 01/02/2021 07:55:54 AM EDT [facility] [place] [facility] Name Value Range Interpretation Code Description Data Haylee rce(s) Supporting Document(s) POC NOVA GLU 178 mg/dL (70-99) [facility] [place] [facility] [place] [facility] CLINICAL STAFF ID Date Data Source [id number] 01/02/2021 06:13:24 AM EDT [facility] [place] [facility] Name Value Range Interpretation Code Description Data Haylee rce(s) Supporting Document(s) POC NOVA GLU 179 mg/dL (70-99) [facility] [place] [facility] [place] [facility] CLINICAL STAFF ID Date Data Source [id number] 01/02/2021 02:13:40 AM EDT [facility] [place] [facility] Name Value Range Interpretation Code Description Data Haylee rce(s) Supporting Document(s) POC NOVA GLU 212 mg/dL (70-99) [facility] [place] [facility] [place] [facility] CLINICAL STAFF ID Date Data Source [id number] 01/02/2021 03:59:12 AM EDT [facility] [place] [facility] Name Value Range Interpretation Code Description Data Haylee rce(s) Supporting Document(s) PHOSPHORUS 3.2 mg/dL (2.5-4.5) [facility] [place] [facility] ID Date Data Source [id number] 01/02/2021 03:59:12 AM EDT [facility] [place] [facility] Name Value Range Interpretation Code Description Data Haylee rce(s) Supporting Document(s) SODIUM 142 mmol/L (136-145) [facility] [place] [facility] POTASSIUM 3.6 mmol/L (3.6-5.2) [facility] [place] [facility] CHLORIDE 109 mmol/L (100-108) [facility] [place] [facility] CO2 23 mmol/L (22-31) [facility] [place] [facility] ANION GAP 10 mmol/L (7-16) [facility] [place] [facility] UREA NITROGEN 66 mg/dL (7-24) [facility] [place] [facility] CREATININE 2.06 mg/dL (0.60-1.00) [facility] [place] [facility] BUN/CREAT RATIO 32.0 RATIO (10.0-20.0) [facility] GLUCOSE 191 mg/dL (70-99) [facility] [place] [facility] CALCIUM 7.2 mg/dL (8.4-10.2) L [facility] [place] [facility] GFR 24 ml/min/1.73m2 (>59) L [facility] [place] [facility] GFR ( AMER) 29 ml/min/1.73m2 (>59) L [facility] [place] [facility] GFR INTERPRETATION [facility] --NORMAL KIDNEY FUNCTION OR MILD DISEASE - GFR >OR= 60CHRONIC KIDNEY DISEASE - GFR 15 - 59RENAL FAILURE - GFR <15 Est. GFR calculation based on the MDRDstudy equation, which assumes a steadystate for creatinine. Est. GFR should notbe used for medication dosing. ID Date Data Source [id number] 01/02/2021 03:51:22 AM EDT [facility] [place] [facility] Name Value Range Interpretation Code Description Data Haylee rce(s) Supporting Document(s) CALCIUM IONIZED 4.72 mg/dL (4.64-5.28) [facility] IONIZED CALCIUM NORMALIZED TO PH 7.40 AN D 37 DEGREES C. ID Date Data Source [id number] 01/02/2021 03:29:51 AM EDT [facility] [place] [facility] Name Value Range Interpretation Code Description Data Haylee rce(s) Supporting Document(s) WBC 10.6 10*3/uL (4.1-11.0) [facility] [place] [facility] RBC 2.97 10*6/uL (4.00-5.40) L [facility] [place] [facility] HGB 9.3 g/dL (12.0-16.0) [facility] [place] [facility] HCT 28.3 % (36.0-47.0) [facility] [place] [facility] MCV 95.6 fL (80.0-95.0) [facility] [place] [facility] MCH 31.4 pg (27.0-32.0) [facility] [place] [facility] MCHC 32.9 g/dL (32.0-36.0) [facility] [place] [facility] RDW 15.8 % (10.5-14.5) [facility] [place] [facility] PLT 135 10*3/uL (150-450) L [facility] [place] [facility] MPV 10.8 fL (7.1-10.7) H [facility] [place] [facility] ID Date Data Source [id number] 01/02/2021 03:59:12 AM EDT [facility] [place] [facility] Name Value Range Interpretation Code Description Data Haylee rce(s) Supporting Document(s) MAGNESIUM 2.6 mg/dL (1.7-2.4) H [facility] [place] [facility] ID Date Data Source [id number] 01/02/2021 12:13:44 AM EDT [facility] [place] [facility] Name Value Range Interpretation Code Description Data Haylee rce(s) Supporting Document(s) POC NOVA GLU 210 mg/dL (70-99) [facility] [place] [facility] [place] [facility] CLINICAL STAFF ID Date Data Source [id number] 01/01/2021 10:46:12 PM EDT [facility] [place] [facility] Name Value Range Interpretation Code Description Data Haylee rce(s) Supporting Document(s) POC NOVA GLU 189 mg/dL (70-99) [facility] [place] [facility] [place] [facility] CLINICAL STAFF ID Date Data Source [id number] 01/01/2021 07:46:41 PM EDT [facility] [place] [facility] Name Value Range Interpretation Code Description Data Haylee rce(s) Supporting Document(s) POC NOVA GLU 158 mg/dL (70-99) [facility] [place] [facility] [place] [facility] CLINICAL STAFF ID Date Data Source [id number] 01/01/2021 06:21:08 PM EDT [facility] [place] [facility] Name Value Range Interpretation Code Description Data Haylee rce(s) Supporting Document(s) POC NOVA GLU 141 mg/dL (70-99) [facility] [place] [facility] [place] [facility] CLINICAL STAFF ID Date Data Source [id number] 01/01/2021 03:59:36 PM EDT [facility] [place] [facility] Name Value Range Interpretation Code Description Data Haylee rce(s) Supporting Document(s) POC NOVA GLU 151 mg/dL (70-99) [facility] [place] [facility] [place] [facility] CLINICAL STAFF ID Date Data Source [id number] 01/01/2021 01:56:31 PM EDT [facility] [place] [facility] Name Value Range Interpretation Code Description Data Haylee rce(s) Supporting Document(s) POC NOVA GLU 146 mg/dL (70-99) [facility] [place] [facility] [place] [facility] CLINICAL STAFF ID Date Data Source [id number] 01/01/2021 12:24:31 PM EDT [facility] [place] [facility] Name Value Range Interpretation Code Description Data Haylee rce(s) Supporting Document(s) POC NOVA GLU 210 mg/dL (70-99) [facility] [place] [facility] [place] [facility] CLINICAL STAFF ID Date Data Source [id number] 01/01/2021 11:06:56 AM EDT [facility] [place] [facility] Name Value Range Interpretation Code Description Data Haylee rce(s) Supporting Document(s) POC NOVA GLU 213 mg/dL (70-99) [facility] [place] [facility] [place] [facility] CLINICAL STAFF ID Date Data Source [id number] 01/01/2021 10:06:06 AM EDT [facility] Name Value Range Interpretation Code Description Data Haylee rce(s) Supporting Document(s) EKG [facility] DLAEFo4cNmFLRbVdi9ShXfGgMETsOK9vexs0L0V9xGUcF2KicCNty5wcT0ViI1ZgONKhBQFTJE1GhOGv jb2 [file] Asx9i7Yxmjge2KirrlC1VhCyuHHNw7Ex2X50/M/RMolx7x4zbP0/MzOz+electrical wirer+f+qgxEO21oVYOr+jnZ4 5+OEk/O8S2y5b5+ZGzAJD/SoPZFTWcDrQjvaljtIYbTVICkA4JQIGgV1dGWBZPUbid+zEiEaGdZ5pBCX eFk8GXMDu/orNQ2K6cUYKF+4MgAncaD9mHJN5wR37I 7Zw53RPwYURgaFISUWcMXOtwwtynzqif1rlNDeE0IBzDeXF/FURFNxeDtMpnjw6iQPNvlT/QNnFf1lBQ uUDActCMAxdHV41cFup5ND7I9RN/2MUIXuwHvRjhi/1sPeEFlW9IR7Tu1uZjxFYHdlLEEhRO/BdxApk/ chLK2A+WMYIZ+8CkSrzsC0vYHGnlW6DSGQ89SKdlsN ChUEONMtoGi0tLshIrJPA5v4RXLzaLO5kukzr2eVbYtCL/TXbNmthA8yyQih6hAHDCgY+kLiV22sH1eJ EFwyJNUepLX9vpfx17iKlLtDU/hHnGeplL4csWs/2gHiPssR/cYwQ+9jR4bOEBxkLIDlmDV/oxwh/7wT 9GAGQ/AHfZpzeNPqaYuD7xNUQZjg3nCIEE9zCVsGSE uvVHROrHDszppqG9iGMZAPX/eMiJh/wHDznxkP/xEXqo7g245QJL/oOHnHjIf/CQEw/4Mp1m2gH/wUNO POQ/eMiJh/wHDznxkP/eVUum9i299PQX/oOHnHjIf/CQEw/2Th5d3zL/zc+GPR5enojhmX0RIO2U8cvZ AwU9o2ciady2rpOOAU9kdeAdf47cMUZp84RNkTbJx/ CQEw/4Oe8d5eD/wUNOPOQ/eMiJh/wHDznxkP/oNXar4l480CUM/oOHnHjIf/CQEw/6Yo5x2uS/wUNOPO Q/eMiJh/wHDznxkP/hXMee4l285CKF/oOHnHjIf/CQEw/3Yu3j1xZ/wUNOPOQ/eMiJh/wHDznxkP/gIS sf8y306DDT/oOHnHjIf/CQEw/4Eu1o3lL/wUNOPOQ/ eMiJh/wHDznxkP/qLLeq0q384ORD/oOHnHjIf/CQEw/0Ja4kP7cno4/qw0kwKEB4DEmw8fHpjyH+HCfH xExgFDA5CX4mPCiJhInCkBozZFYwpfAIm7DhQlga1UbSt6YzElah5WaSd4IaZlms8AyLk6QiXscl9HgH k7PkNhd45tuMp6XcGit52cvDc0CxJfb58gaVd6UbWj n36qeMCroDZM9pTXD5vnCO9WzXN7TaIV6VdaP0SHSS2FpSF3OjOG+gPIPyDMozKM+gPIPyDMozKM+gPI PyDMozKM+gPIPyDMozKM+kPJPyTMozKc+kPJPyTMozKc+kPJPyTMozKc+kPJPyTMozKc+iPIvyLMqzKM +iPIvyLMqzKM+iPIvyLMqzKM+iPIvyLMqzKM+mPJvy bMqzKc+mPJvybMqzKc+mPJvybMqzKc+mPJvybMqzKY/SzN+v5EpFthiML09IJol9Fit89EBqzfWF3AuC ufUpk+vIMcwfYG6Yrv+ZwAkmwrUhZvjprGcRRfabYFNTmomG9MdOtYTHHw9fotrbeeOVAeSMXqVjNmLx THsyRPHZehOSO4niRWlYepjSvYQfwYYYP5DXObgdKo xc9ApawEOUclVLTvzaVqbdmeewdHGfoPPME2NKLoVaUd4jXXgt9GGVgeXOC5vzYpdGwpnWuZIamSNZYq OWQojcRgEd5QrhLKKB6lIOStnnYFysviedxEY6cFIKM1YFIoYyUhmtAB6waDHW5vBQJ8znMcuFz75Rb9 YjxeHqbcM52SgANwhx56I8W6LcYHHBo3NWtydGnySq FgiKdsfknmShsadz6VkmLsKhmX1HzRBHyJocFxKnyrrNBrHODmq1imwKOvZMsvk3n2dCCukGQnx5xjmU UvvnG/Mj/3zlh5/5+fnODz/081OyGMivhRQT+fZBk7ZZr0EPoqI+1UDvSLJxHKYZdhCncxLex5nLIMdN AxwDBd9OBnLW+5YQe9YCe5FAhpS+7MZoOPZjOUbTsR /bMRqP/EwU2Hnhl56KFmQ/VhW3RwqkEvaK+J6VIV4Np4dDcVA+Y0NOG/HwY5Bdaf+vGu4is7hkVuO/Nu S0If+xIacN+P8FVP3Ez6jVjCZ+Y0NOG/ZgN8VtbE/YkNOG/WlSWT8rbf4er56+txlBBTRmtrdj51ihaC jovd6ddUM5c3WWXYXDokoOWWAYGSNMEzHKJVuPHvLf [file] DyPziRKb+affiliate marketing specialist+cSsGusLg+vWg5W8WZPdJRxbZ0RNvQ E0+ALSJglzDZVU7YOBFjh+NP2GsipO9H4C2q8Wx53jijOmQd9a2iM+qDTqBSv1JyUUtHtjUsmwWqxTT6 SX4+y90ucRLsn6NnSZpzWV3UQVNK2B0Q62DseeKwKYX2oLbNSTX8wI2o2DojyYjnkuZH+MwLwwYrFvi5 tRUhfPEYj28zVcIaAMp6F/5lzUvQrfqD8IqGgyiYJt b7FuAB7gUYxEhguiW9lzpGsoaB8tgc54t6mtH1+48yBJzDdKifBNBaFHxxr2TWGMuxztyWyfxQsaY7Bv 3JiE/PUZ9e+2c1n7BOcI9J6h+HHBoq0Zu22qWKn8SUqEF8+MnZuI+H2Xs2f5I30T/QdjLnIUO+vTT+SV j8p9rIqWlv/MrvYJB8vM3ChzytBG4f4Y4BNCUB2Fc3 YycsV1gTP/BAySW1kHLd6VNtGW7xfuuII9q8NBY4GBqTIE20SGKvH64RwFjjxHjTkWMKehk+p8nkRBfq DcUMMqsC5uVZyc87AdndC7laRmZYbAzpuNYot6oEEloacSLV3ayVdhNea+BZXdCI3OVHKAaO/YnBc2/M S3bCYoM6Nh+SBmmo+EF7l2tNBhndBdymDbCmlKFs+Q R7xCoFO0kW3LI+ia8TcpB6yPAf0AmB8Dkor0YrlS0+WILLY+OOHttHCDRwT7Ef0jHakEqvrasXg38fdZ3n [file] XTHbyEgEF5G8JHm7h4Svs2ql6yD4QPsxSsoO/iJJdZK/VUT7eepWbCMdOPzHWD9AxJLjIRjZPkvH/mineral industry teacher [file] svOhGrn8fUgthkcdYpd0bDxcndwqXfv1fIbwiifaWw b8eXjaxzsdRsl6dJvomqgpcch3vpwlsburbrn1ngkvemjpbhg5vyuP1Zq48HXoWKsJ3r/832do/ts45R 2tS1jE4e6jDQuE/jfx6nCaqYsaX2EhqXI6FvXZu0H1TS1t56vIwbnn4lwb55sUlawz8bdr43gaqspR7g Tue2hoolfK8pHgw5jumcrC2jBaz9dur4qp6vYah5hp z4fj2dEmd0rwopdn9rqvv1syykro7kulr5pjhivt8l9X4Li6KZkHH8E7lVgm/bJEj1tdQZ/MR9tWuA/4 F1x0IvqBAUO2vaxKz4MPPHrZN1ec2MYrU49+cnbY2vGmJ84+vbaX6aHzV59aygNCEeNnMI7jzvAPAvUk IU0wlxXGzoEiLu37bfQWupXtQp47zaVVraLnBl64kt MHBuGuJT38enVMMvJqQJ72qmBUzqpunRVPmJP2LuEp/N//dQxL/40sh2hr3QGUJjayFx7g++wyrHt4f9 b0uqauc4oPH4z9+6eE+LaZO4fG8/zSXeECULFN3XO72Q0d+VO+vJ2gD1O1YzHY9VPWZjZFK2D/Bf0V9F cVM1Robsny8V+gv4L+Cvor6K+gv+Kgn/7eurq/N2wT Fg45AnVkH/qFT3+oivz09kF+Xo25Fnym7Wsnmld/70Z/N/v568Frh59lVlmh/9Te7p87HCkoyr5fc1SH f/21p+m//trT9F9/yTY8039aMW/Qy768+pj9vjrfBW12RQ6cHkqY5Kpuc6iA/20Qd4f/5xAnJX8QpSjQ 1An/oy/v8K+/vwF4wr/0q9P/+ivd95+6JLZ0+b/+7u SA7SoIph0r/Bg5kozT+q+/a95r1V1wIf3G2hR//r17j3UodugAkunp59G3P9SrGsw897Uwe2u69qevLR 0h8deQmm4hw072/t+zDMj2i1/4/L/85BfYxharZrpFc0Wi17Wtqedo+dRRP0Ni/o8r5N5bf5zU2SLbWO +Z2zjGl58w3iCt4YjocioVUQ++J5y04fM0wTvJW11+ QbYzu2vNk8DiFN8Oru0FP0/ImL6SurU5UYv/dvRmfVtHcvxP46Cny/wc+H8D/2/g/g9hU6Tg7/9N9DfR 38T/g6xZSVjCNcb29xMiUR/+dyI14fhAbaY4Lub/if4m+pv4fxP/f0Y6B934pzneiS+F/hb+79I5JRuf ob+4K28iwEVf+fRl2xQT/WtP1A0gXVExAJ2J71OyFh zUhaHg9X7uW4QfB/H3GBy6XS6NgIaR/Aníbal+aVXpO/+kwhBzsU0nO0nuX97RU/QE+Xkt+2ac4bTE/rGV5 2+2fUjj2te+NmEKPFX9mu+job24Ra60bTL6AmtCpagZB5m7v940+7xvTmz0HA1/XVCjt67h1++8JTf+O j02dkUb3l3w8O35rB22YfpjwEB61vfmtC24AtJI8O/ G1/vigBCo2LOB4jut+TT+HddL7DGhfNH/V/6OxlwfKXtV2NKDcT399WaR1a36FO8rRedxwKQfg/WOuiO 9IH24P/eIM87Ft81neam5Q5+MC91WxCkW4TIj01r3Xt+1gPcAsuIG635NdVjUWY+Ta3peUrjQPxKKn71 lVA2KL5LK9ZQ2PCsd/4p7TxHhbLGQo09h10jcyiokU gjx563L7ij5eXe1blwLiLphPa8StV1OXe+Hv3Q7TGQaR7xFg+HGAw81siIF38z9TMR86w0Qdx7r/FVp8 W6U9mnwNylVqbMtaC/C11xpkZ47dIP7Dp8X1YWiQlA99TFrK5plcAwsdTBI40+xay/BvckQ494tRD1zz Wxsiz7ZdeAvr4JpW9Jf/5K46v+isSBr7bFvMVr/ubs o9Vo1K1oo8m0j/QWC2y8CrM5hoy0XFs401HJ+ceZowU5BqhVuu1pCmVhAz1PxU+J/zfx/ybmq0J/C/0t lUhGdhk0h3C7Id0CehjulR8/R661k9m/O1893txuUW7OjKexxGOcVpwOfW22TYtEa6Sx2lJf1I21gcK0 l53x2uwJcExC/38xrau8q6cCZyySd735pKbmWSp//e 181dMqOFcq4h700uk350CwVUpxLo05d718sBpurtdBEP68FN47y+eEbLf+6tZbQz/46uY9+BqGtqRY40 UPuwIKO5Z//+/T4fP/nv4fy8T9bWnN/QyxW36buL2o668hJh60+4UN/vJlC866sekjrxY0qg+95vvdgv 1BUf0zyv/vhl8SFpbvxK6Bx3qovXV0ye382qJJh5nw q+0IzW9netF5IG75I2r3O4/rYLAc6P491+/eD+iDJ/zhzH75uBx/krOn9QkbVsw84/rdThm5cu7MwG/6 efGdbOs4qd8007ohGhe97+pHqr5r2Qt9yYc+aaIwp93q17iGQ8Eoba+r6K/KsjLGg8dF+rsV/TBELf1o 70fuMfE4IK0Aj6K9hopFRoiwOZ+F6TsTi66yylzIeb NAd771CsIdoY4++uMsC5rp6HXuO/WTIs7peb0nI92/toRvGw6+umkOvnrDC/KE6SO5wWl+WWMvhK6gZI +3Xf3gfBQoDAhEk/z42mJLpDZNmUfJu/2ogVOeH71vu/IBw4J8X4gq3GHdAStE/t+Cm769B+XP/uiYCr 1zoJjtANWBZ84yERd/RpeoKVc4W38d52yvezSXwH+J 6cjx1Oa/z0gLnpB1h+qxJjtippSs2Fr6kZ50vzoLx1C/ifGcGM+CkNfz1G0zTCz+27S9thA/c6MZy0w8 y6lj7asqDS+8L5z8lxaWONmamBTzg8nqbZg98Hd6Swi+X+ivdmF+Lqy/0F/pM+sDWrGq6ObgC5QzGZCt r/TZoG+Qd6AudyOBj6qjtSoUn34Hn9rL6tZWZw/sf/ Up0Ef/xYcvZLnYBj7OGcrQmfRSDLT0St3VdnJH+XVatCSQwQ53O5HbBDeMvC5btVa6Rm4x8UJbEN1NIy 0OVlzwco6CLpeR+bmK6Vxmyxi8GI0D+XrVMB1q/zq8LckOLvih8X7WnzYVuN5em+x/YsyZpc12t03Vvp 90z/1LU0mkxuyW2+wHtfHVG/7nR99WbnIucFfC6xxM 7ZY2SDzJrNt/G9+v0l9F0Yeh/za+3iDnc1Hs9EPRDcwucOfhZy+rKtLj/1V8v+oo35E+XU5yC2Ee0MlJ +qE5PH20+aG64AbJ8CQnLzoYAa416QtbQserH1OYn//BAj28wX6k1uBNr4vnpX+33YUR9hJ87l+1Of9V K5Qz+kz7nYslerM16vRnRJmiF0m100mU6d2waM+h3b 89b6c/+9/ftv9p8n0ai2Dr8BC/9o1mqVYBfVcG5v8edhTL9mP8IOaHr2633S98QtZ5q380cTpbpaasya gMS9sgbsit/x7Dunv+e+in3k67lVM1fW/5Okyu6JUAL9Y/aPC9UXS/K0ulvJjNdGaY9xc4Cz80cgWDp/ ztTN6W7sbBbQJ4syHtLrW15ixGK/NzCtJj/U3Mz/d8 8IZnPEN/qW6ubiyRj8DVF5nT8OsjvH/SsOhRcaXZb5GBR9sgq2UkGtRLJoJbji3Xt3OU86dN67R6BMGj rYX/txzl4/+tAD1Ax/wMfKWF+Bk5P1aWZ7ji+6D2Sd0okyP66pGRwwQg7q889c+7I1QQrzfXdWPs0KX4 tWf6a0+WIlk7KW+gB6Io2imM+rJhuEZY6B9Q45I6AY fXO0yH4lqMK/nCFlS1crJtLxV95V6goUA0zA5R+Mn1EMdtEsfERz6gz7ik3x2/x+Onel39rcbwVmd17R +YcpgfJ77382xv/hSbqarrTmb6tRx5H4zS8nRS5w+gJ+iF9s/+94l4iDdrEepd/d3o70Z/+2dyefsTh6 FXpEd/N/q70d+N/m70F+eDhvNB2+jvTqQf/JVRw9CE 8avkk7R9R0ukNrsDL0u0yjyvF0CdAWfTw0H6D6yxOpkk/c2lSBn4uXpd4r/A0qjxS8K3qW26nIV+8NUb wd1uKGG0fkYnT9z6bglhV1B3z0HyYiCRHpjj3bNi/2NYX7damoDGDrrrMMe/Jgi6fNF+eizsq0eZcaKn /a/5rL/mAvqsv+Nb0AwPi/0u1q8SrAK1d+5IP/tfw/ 0rw/0rw/0rw/0rw/4hb6QTepwZjieIfcYYj/mghYC+Qd+uB4sQgN+gG+gOuoMeoKO/gf7i/pUBXxnOBw 93emBhYUmXfL1J532rOZIld2l/NItzo7ODFllnilbznw8r5d/EeAa+MuArw/zq3g7H0c3K7uq0z1R/W/ h/cf/KCv0t/L+1QUd/C+Z1Yb9h2YXWoaUp/a10h9Pu XIF6E+Uk6Ph/ob/yZ75fh/7Kob/yZ/1otpV4PZgf8F501//6M9+bT6C5Bbin3WlqB3kgsGcAKoN+QJ// 51t5w17nyzK3+x2u0M7Lb4sOU24HB/ua9chx/8px/9gYkQ5IuXGAQE767QxEC0+K7bo16nKQ03qNU15n gY7crLEv30SWlY/1h9136+vOW71kP/WDr/riub113x tclz7/PXUdfPWW+etv3x/8r67zlKkh0Z2DR65p/kFloJD6RM/4at96e//b6c//+zS9z3+bnij/7H+1yz a9csF67sG49UrrbmAanoobelc2H7/9Vctkz/0cb/3Vpc/+1/sxr9Fnq/a962LzQ13Uf5Vk1GM9QDp/u+ l75O6oWcdibqM+gRG47CU7JP6Dm22ckTx/uH/liu9X 4a4kgc84sEAaa72iWClWFjqleICkb+82+183fL+G/ehfQAo894f/1Zm2G1iPHs6zw/+L+1eO+1du+H9x /8px/8px/6cj7K7V+0c/3Ja4CghU2apjX3yY/VjH/SvH/St3/L+4f+U+xQJWfyc13a84uhu2ykIcPBcw 3DE/4/6VA1+5o7+O/sm1yzuw/8bgDQ/9ZurzLxxOr3 zzkj4TG5JNgGaECriGr+Mx+uXBxG0MQ/V+pcYRQ9Jt/b4YEatazUq+30R/c4E++dSEuJJG52EH93SB9E 226YtuSoiUm3d1dLlvQ78SC61i5l/9wRE86XUNvzTvxI9+1+kGzgkXWkJZ4Ps6bztAsm7w/pUX+luK9K Zc6rWM5v+Ejt2WWzp/dI1OVl4g6Q3J8e2Z6RgePYVF 6EF5lXy7Heap8BZ3+X/wkdPajZ1gzaU7s/zRCbtwn5li5haT++7kyQ5mfdf/Y83/N0a4EjBo/uvajF4R DlfjRxtIzhSHkdnfqqO51gU2r6D52qX+KoCvYs1+IXD/KnA+GLh/EQzaRJh7B2V/ZZGnRNy5IZY0ilE4 tSE7KQK48I0lbKiVP+sTodYccGqmzmn6at3b26X9pR PhbepqUck84o/HYgho110LDmxbV2Siy3ILHXxGiYoMtXNXG7Mwpr148gEAq50Ws/MPmGg4vm5VE+tR4H 245SmOIhjfs40Y14i6DWRpvLTD/qqCrqgX/VX0F/rsI2MhRJSAbEmqnd6h+czgupHUB5BtazL9SKE0EX bz22S6l5QC+sy8hesQ6B6jbTNipCkKW+j4fw3/L/RX Yfh+ga8C+Coc36+bs6NiQnWK4CT0CoqzB2/1NxzzlWO+8ll/wzE/6804WWXr4N3TX4Wttg1WsqYg/y/w VeB+zgHiZaJHKO7B2XGNRlYvBNR2Y7OoWZB/CqYkF7NiJ/Z79Tlnfqz1puLmqHCf4DCX8J/k1Zqrf5iU V1YmMLsBl8APk+3d/0eLX38KUT2+3yPdgB8/3R3+0f s/Bedp73hu9YIkc5ume5gt+X9v+Ox/z94zWn/1dPrz/13y3KE4GPrc/hsHX90+Zu/3uz1j/xutv+pyWn /A3Ke46KK6TC1fwQiJ+bkvVixdu3V3AF3L4DaTRezuhuK6zgS1cnVI0wG6sx0e6BwtnY/fkm99KS+Y0F 9q7j1u6n/iT4SpdB/xnM/oc/HJ0ztdD7zZxP4McfB1 M1/lM/6O5X6M1gNgP4c/32+uWY8S+qvE/auE/zhDWR4IEqhFiz8n2/x2i6OgqV03yIilJ+VypA+kD6Sf 899c8//tAiUYT6XU+BBSsdSrS4es+6MU/U5qPTge/NU7usFFaUN0p06isn7tGyasuH45XZa/Ojpd3q15 7l6YnxgSAnhP5PY+f3oUm4DJ+ptbQBfQN+joL+5fJe 0w5D42OC0V4+2ff89i09rHsC6krOB3/0m1yoV8Bk3ml7kZekTjWwi3U7ydNgbMO9GK5Vt/kLqRXkHXab 3o2rCR3B70qU+od/XWjYx9twPS+vw1v9163SeywPmONrGgd1D1543falPpQul6tE9WU7/BEA3ojNG9cg 6gz/stNalNtBT0qpMx/ulP4gbBw75/1/H/OsazC+daniel [file] 68ZgBWdC70Z7EbtTAXNjU4xIX4pf52e2vW/managing director atlas/rSzMkXSgIiOLh3CS2V5yrck1Aob6WndUisND0ltpN [file] eLlNiROZNKbgTQOEfebo1K/iHmkCZYV8bRJQ0KCWW/ MWHX8yD8/i7BO13uPRQIJUK3uZ/xKkkzk3QO26LnoopbFlcIv9Ohzz632S0rKirN4Jj9VitVMJ9oRkxe 6EPT6JNsbIlJqp+eL5Vj7Ez2GLb4Ezw6Um6Q8zBt3oTu8RQ8ccQVg4Xy+KaBem7CVYlF82uE19au01Bx 4YDllMSrczpy3R2aGqHzFRuxpJE3YZ1JB9LS9196AS 8hHkCDmCtrXf+GPIiQUvfB490/njRyCD5Tzh6EEO5HNaDBWRftc89glCJG2Kin9YC1StNqufQ4H4iKW+ ju8ab4flwQg473csCf2ei8BzU5pTe4uPKnzmdWTqNBji+NoGj+TU3GWKGhddU4lLVatTS6bNFR3og4OK 8S7sMpAfr24Q6zoBM3ehURZfQYWiHKec+2CgHZ4Mqe reR2DY6oRfwTVMVNjpWNLBX+u7LWoC9TssxGr75eh1NR5oU8sDelqXzqxq+BHkbJbhOAiOgzCMt/AfCX XSvRWi1shAwPK4Kk1HNEFrB0o9KpadDbdW3EpQSOekygqOx+Kq25vlWsoj8bBBx+W+UPwIAg4qUwywK2 UgIz67dLnkHDbZw0cs49r7F5xHcluIa5D0FdYoxVbx unGPRXfbEy+G86W8Ivfy38TGdqZtHN0U42AP/Um+h+RuZC95g5X8ECb1ZnGpdq9mrz4qOkNbBVQMLNSU gEK6TIjX3S7G1frDXHvBmZULv+JH32GPRJmL8KCCTiUKnYlfjRWZkEB1vXCfltQD4lLTMrf4FMIMSIjv EWUW2D1FsBh3oDa3AwpCoLYWZ6fuMYdYSwXsA0reaW gTB4/wS250CVzkW9RgHN7HWuYomPNuMAFEUdwD5EAU72NRf7F/iBy1jjf7WVYfTnwgdRhSoIl2JnKvJW 7Hb3EPpkwP8+jBPa5/EA3+WMDjeIdQ0ORJ+Bip0HPi2EB5wIlTbOPWg+NY8mMyCGcXGOis0lAM/NkP/N b24h+plygQG3gRF2VPd3WKAUu4pc2kT62aG1McaFX5 Hbgh3qr8TpQtmScQU9XDdcdx3vvjpR+jfwDxUuky27v+8BAee74HZkkTgyOA5gxcqokfdpEzLl2sGz36 q22uB/vea7ZCK/iYiOWTUBHXKHhAHsIH2eBkxCTLUPchyLpk8CCliEnxUhfrc9xjhhMiQvKNnQS822aT DjUKTmSxoDeXZCrLsCX3QyIcN65vLtLHtED6bSQBFd gqHvwUCyd5oqn7xOUy24IA8aZqHXaI7PO8XSnIO/bdlC4e2z9FV20Q+p0t+V6UoaE1k5t2t9St+G8M/h nKd0DnCXcJwsC/XTG24j3R2MGk+W/CVtf1YuU/C8n/QlI/oN/OWmhw0KNJIjyhmyvQKZb7r+gNFqX9O+ B40kZj7YJlXiLS3jTNCamdhKlhYIWKfHq2DO1ipfX0 u3mvB4/lWpyt4+M2Eom9Xb45EWxk2o1qw4o4mmw8M3m9uw6gO0LM538oQsSLhln/po6fOH+Zjp/4EeQU l6DfEzbPV/eNY5jFfrxA6Yb2b9+2iY4ETNX/uL/jI9zeuLKXKA71/JZ4jtlNMjBmgiFfh1gIj73VvMUO OMhLfOPg//qv/+N//rvvsqx/Cf/zf//3//a//tf//t //8//89//5P/299j6Ve//+//1jGQL4ObX+OCz9SQ35rvbg+U9//FMp+/iyf2UZy0hxk7Idu/rbDLHN4A z0ILm9RqO84rbESst+y58iyMqUKlgX7OP9d3Go1euH7Xw/FLzrm4fg9KrtQ/+jiev8Hfqyi3/7vfdPRf rxjvorT72Xna/yyHjM4JFbkQcPhk+ltYD251E+LvR3 4fsufN+F7/ftVf90GAuewIAo69inT8zC92qq2Be1r8NwCis8rU3Za/01smMh03skTD/P06WuGw7fx6c+ lx6Nu/rXX+7YV10k9WuXcw4/pUfX/6f//ZPvwHz/jOgdfm11Lqpd2k/sz3clh34//xbv8/yX3m3+0/y0 bMj02320K//4Ft60qDw/6fPev/7mgKL/9fe+66+/tw 1//S4n4vz3Q4wqmd7/0/fOKbXz/NitigUM8e2aysX1L0qHz3xW58pB++5R94p6gGe2sp610yQ26hOOKb wd7YI4fZKKHT1V75hfvJjpN2406+pxrFeO+ypSu0206O7LqwqgC+yWn5042Jg+49/wvjvawu7v8l91GK z/fZ4/I2A2ZyDvG/9/jny4mip/zkn7HlxsXWRhs/2h 771x+nufkX+/9sdGuqF+1Xvt6Y65GN9J4Thut9A9TU+975Lob/6ePFN+xU02HI6z3ial5syL7183Rxso N8OH52V3mHdhBs76S+nn+0L6Xt7qV/F96/osW4zdnxj5Of08UX89fWM/Qvp67S/0tzCeC/1t9GhN94G9 LXzfiifPwvctfN/C/1qnXq19NQt9PDU1sc/8PRdFZl 6feyLv+CeGqu3X33i9/r7n45yF90bPY5Nc5Gl5sZwhNa3tWz299yn0a7k9z71fih/9v71nvdgLae/1q3 zGaYqETkq83lV16Hmvx2/7fN4Hon71feGGiuNeLe3L8ZA+RD2J/ZP2bcecl+o8rV/Ky4apVyfQSPR04t n4h45h10q++FR53mpuTdMlastd+F9Kj2k3AEqI7c60 E7Gsp5c6zgWqT1sxG/vU3lut99nvknS+v+eqx/vG68defZmZ69W3EmdIF/1d+L4L3/tfL9K55q8wWHG+ 9Eld6G/zV02tf55l/G350EB3+tVN11f/Dl147z2haL/93fi+G993G+p3vNdf+ze+92m23Hz53B/99Odz Maddie+2++EH8GQ8yXbxE3M2sk3uLE/Yli6B8LJ4T240L V/9Kt+olq8pBuH6367vo4AU8T/0amD0jgUpq0ky6eD+bt1Ayqf+L6O+ic99FvfJj7Dr/3tF46q+qUb0u 5NmnE3Si/XA/UH8qO/jvnrhXre/ntyr3czN7466U6d7RNwhdStrnq433nCgD0T90jqgv67U4VpPJ/DkY 0fMUA3RXjmLfTo/P39K5JhtC00542vKDK5vGxK19E0 bs2v5tB0nUpuH3+hQBtWba7w+pv4von+JuZvJtqfaE+hnU+qAAan1jRE5yRzcuTXI4Flwyk/o0J/a732 FPpbWK/WpkhDKB61+csRoqsB9xaHn1ooHC94roor5pEr21C4/8R0WC0okA466xDfdtW/iSv9/C/dzx72 3K/7J3Y2D3kwWuqD447/I+w8A0mA8pV/ANaEc9HpxG i/57/+ZnY9Z/89cT4833JYeJbw0mGOiA60X+t6zv5X/Dyf/W/1e8/+1/r55J7427W2n22l4w/86KLnOs EAFG8fW3/Riu67uoB8Ji0xk11/8DS6xLs80dvswl5wA+lv/c5dxMcaC9UH5r+es+Xss5qL5KR7Z21llG 8tff/nBk0gmH2Z1uw8byKwdF922bbiG/Vv1L+R/va/ C/arpW+/qH3AwKhD/M+ec+5KfHkS+Szmm65i5xx923wYeiiAGgwsPm/y20uN9FV0A+kb9W+899nrzuWI 7/ihi2hYnsy2d09/fC64Wu9RVZ+05+kba7/3oK79o8/7cV32s9/0su92ss/kR3/3s2+cqxC3L/ia718F dM6U98m87kOwy03/8vO41sz6ZilP84md/0kjG7nig4 1jhl5aoq7q6l/kf/v9c+/hS99Ix/s9wMyKht5i8xG3SNwKr7X/Wob5a+9/tBzfF/jjOxkIik1nBx1x/v a/q/WrnuO+kP7+N8o47r69Wvisd0Yig+p/R+kEoK37xfEMa/+4Gv1juL4Fr/aIGsqcpP256nJfN96/tE VZevJ0KrTS2teps6/4a25KsJ66gqZX85ZV//TnFU9/ TmUEV1FN0g/+iCHcL89N+aeWx47U2BhuMjd1d/i+uZB/Cd3pIi092Bs8ncPaAD/7h0M3lg+J/ib6m+hv vf3+sl1p1oB9E/2adN6KwmfgwbuUF7G44zRko2SE58tcg0IAD+X7dd2u9sfaRtQ//dH+vf7u3w/p7/vu nyBdkV+RvpC+iU7Id6i5Zz7G1luMks77p83Qk53/9z /av/c/2r9C+aC3ifg4nid1G389H7bR0x6+YcM/jDZoaeB180/E8fakgbhde1F/8va/Wxz5A+mP5OQ3sg RC/qc/b33+na575Rw//qWOJU4QhwI+bvBkK70Br1Uf/mfPHr5wmmILlqM3nnVE/Rz8HNbS2glc5CX+Lv W5ym8DkC+R/g1Qq829nx+AcYdm7S/2wvdt+9W8F/1t +5G2G0VYW+hXG/gKix91Z3trmfeQYj6zk/R3o78b/v9CiDlkhb+73/9377f/0qiwOwM58w20r8lk1I60 7Fd74/vi8Jnkt3PaviA2ze0be5615ukbt77/9KmHS9Y/4R/p5bLL9xlDDS4bL646+eA2m19fd/rktrdf 0RNBlydkoyC5b057Z748alqIPTWi/54bAuP/PRcE/u 3Dl9gEclZ8f18920fzpkoI71X4kyZTRmJs+ex/Y57/0qee4//k4rn6oyaRb/680cDTp1ifSQs0L41ytA /Z/06/zv63++7P/3omPycq7Ts4y+fdrV+dPe+O5//h7K7418dqixF7EXlyF/kxf8OQ/vSNHU/r9XJ9Hm arHW//u+K55spzEajbbhIsN/arnRjP+fTnDfvVTszf xPzNtz/a+xmxQcmKjI8mmiTs/qaj/me/8bUs0KZ/E/6VvZuL25T/6+1/q1036M79k2uNbjsgSFl/6+0H d6G/tZH+9kcb/sEN+1FSf2SVnX02n0MyIaFa+9Zbr+z37BsG/6DBP2g/Oxrw6amM/z2//p7D/F/6Rvpb r+xnqN/TBgz9jcbF1VA6/WE3ioBBpy+c4J+06jgpb4 pmbk8tuS04VdFA0eKsObWyaJ4QpkJ+kf6+7zm0/+VxpL/zSOfE/pcH/ZVEeqL+F38T0rfY/cr0zV+Dfm XwD5o+/0RwZ99Jh/5s+kAk7103mrHqKhN8Q35o+H2zwsMiUjG5+19r/Wqen//X5C5SepJ1Uuxe/tdav9 rzfNbnzv/3e3c79cVWIS+cH7QkysgW/Ib2oL/wD9pC f+JnoGEJL3C//wprD8YwA99ai58G4JK6+T091RR1B2YV4e+k4/aKM7pjrF+R/jAs20U46O+dSE/U8/aD tp++Ats3i5qie5Q/Jkh/+pUZ+mvv/2v2/AtmG/wpe0HX1N1AV2O8ONmso/g93UjbutIuiv03tMkfs3P+ wn5l/vy/5oL09/84Q5LfMO/WZ5y/Vnv7uaBTruJJzg JWlwFN6onhJTdLQ12oWMnSG0a/idx2XMo9RfeK28JakKW/3JM8ift/W+C9ddyMMuu3p2a/us+ea6ZzhH /8LgvZ8TT5m/0hgR0DTGgaqgMsMvl3ynDiBvK1DF9lV2BuOBn0ha/UEg9By8Buv5E36POpRJlCdI9frt 8HC9xOo2piyrjRrVyTDf+qffhDy8GY62iA7pI5R4+3 0F/4U96qsvuOOpjutxyqAG2S+tsfGfyD/nv6s//eft9/b/767+bank teller/lOkK/IvpL/++m+j/w07CMhV8TyP Vu7063D/uh2Dn5e8LOcqk/+hNgkt3y+O8+0u7/u6vO/x1lyfpimLGrfb2O45nxHu+H2o0pi4r00l2F72 1JoW37go8ttd90Go5x7+l+7nfo4f/bfy47b9u6au0U Nftd/Wj36VZ//rR7/qM8x+1Xj3mjkNu8ml42w/NfviHMqW72H66Sf3c/6//vW0Tby5/9A7ypjC4v7Tu9 7VPmU/+lVMPX/9jan/6P3xovw/2az3xK6vaup0oyMn/ztf5+ohMr11uhB0lw+nbzjOXznOX/r131HgaF +1Uc+zT/gRlNn4vnP/6uB4J0x1sqpuN/l6+wVfifxP f/b1/EcO+5VvjGfYrxz+Qd/YGjtoUiy5xw22nY/R095LzxT/WU72ja8Z1/v/+g7kT+R//1/ydxzme007 7uNilZWmm0/wD7q9/ZHDP+i2UM/BS6ifH7Yx+DSu6ad8Te57kgNDfbUkY8ZS4sF2sE0z9J304VyKz6Ly /yW9cch6/3XH94V+5b6RH+uVv/2g+/W5os62kPH/cg /kf+idmh90f6aamWA+9r8eb//f2H1m63a60GfRa+fyKkO2NuF8TT5aAhhC0E9G/T0FclyyuDXWt87g9e 6/Hs++4YHvi/Ptnpi/+fQNh/3KE/+jxHoF/6DnQvpC+jr2Qoer/3q+/xU0lxUs/GlXcQ4nz3P+RHoivV A/1ufWr+7zyw//cUisTzm1jw3/oMM/6PAPOvyDDv+g yjK02Kh9ps/Iy5Ef/98KpCfSoW/AP+j19r/xe/pG/J7+HL/2Y8cbSH/rb/wU6W//G/WJSg30x8+jfkP9 gfiw7QgqH1u7/AsB/1XQAwcBppH3A5Gign/f3M7JPUbaolxXs19Gsw6toMgZ+dhp9QT4U2pw8YVeBQ/2 nJBEeiJ/Vy9ar4VRQ0t/Cn36c+D+YOj7/etGPbA9z1 EL9WzU//d3bjdk8psqcVirxl/6i4P6b6TS4oUQ40sA+a9DgzdIfd8/KOAfDPgHY+H6AfoimP8DvV6SaL +Pdh8IOmeSDU4o5EV/8N5A/fi+jO5CvD1W1LfmVK1pit7fgu70I26M+aYzl67F+AcD+sKylBy43lDZT2 f7aMsxsknfeqNYocSfxL+N+Qv/QCa4r5yiFLXK75yu fQ7D/RG6TsTsZGf8JmvCP2HinHGO/LH85fEzKaCG/pHnkDtkPmAoLgy2d/D3/o8IyaZ7v1R0EaX/Cpxv D3/8vDTZT1d7lrG6+L6O/rwhggWF27iAWZ2j96lI8Rf/NJ9lgl9Q7mqj3L/MdQ4rO0v8+2WB+4PR+tXR 5iW7VjDq/jdgvwqcbw+br1lCo2nr/9JTz/BAC2p7y8 1ovWX9f3m1v/19v0pbk7Yx8i2H1+xLmmpJoh86jco/3x80mj6I0y67epeRm5o+Xxz9qu/wxtGv+ix0HP 5i51br7Cs+wxtHv+f3gdn4EsbOrB0/+lXveePoV+2njqNf+yO5qu45i/A/qnfeLGC/kpG6tygsgM2Fro 9vLdSD/nJpX2LRYuhzcUVzRc2V1O6R/dFJjzST17Se vapC+rNfJfyD+Xv/o4R/MGG/xu1pFLX/zd/E/aI6os6a103O+FBgN0ZejZ/g3rR7KF7jLJS//X/z987H QqmHmuLVTk6pVo4N9ecTqpL/Eh2M4Fn/TlGmZXBqV4Ai/N9UlqV2ouwTiir4IhQzzguYrt7/KPWtVwn/ YEK/VklVRr7v8w4SPq1mbgE+hfcCV3I/9e0HU9/+Nx QaBRC28jpwO1ixU+sFFm8zvR9p5JnRqwT4583Sx8O5v3Zm5XOW30lG05kqsw5H12mpRIK/yuVIf/pkQr /M5qnwezaNNh9hEl3ZzcvxTptJqx811UY/MLcg/1uvEvcHcy+aS11y4rsViflzcJRXV5/28pz+7k5/55 9zB+yH1K2XS3O//W/u5/9Ne/mmcA7k85Zd/m+aIF1/ fB5cnA7iFhY2e228/dwKnW8Eu/vmzR5r3F8J+AcT/sE0fF/vE7wmg1k/9tjE/cF0QTq+r+P7+tsvpOP7 +kL+oyJJ2Is+Mz4TunVjtU1p9Acqv9+O/jr66+hvoL+B/uJ8e+G8o7fQifSx4wZy2wKQY3q/Spy/ynj2 aKx3J2pxt4B1pc6PXCv/7mavPF7D3bn+lPkI42P/E/ 8P4En7g0Q9MhK/EijvGtjpaE0t24NeHWt/4R9MnL/CBLYg0a++kYn/Vd92Mst+R4C7LcwZPx9I8YnP+1 XIoxVkGzYkJ9a1y7dg5BoeyF8N8/8m7FcJ+3AfvUfEtbT0535kZtFVmbrDjntEegaIq9bl7Krf0/xlhf qWcupFDk7vhL/V7/C1NK4xdB0ajW+vnyN/KG4utlK/ In/hve/7FvyDJW//W/L2vwX/YIkiP/oL/2DJ2w+YoH4y0At5pDDkcK9+z1E5agX1vfH/qhD/qqBfFfSr gv2qEJ+h9P1/C/cHC+fbC+tuVqpeLyeORt2azUfe9J8U9ijI+cgUL32FZhp+iu+r+L6aSC+fW4tVoBn/ C/cHC/PlkiM5Af+e5mQUdr+wEP+q1kY9G/Ub0p9+Ve h4kermn6y5izEvhaj9jWq6Kb4C4+hXvTeso1/1GeY6+jA2UeubT0WGZ3rWn6Z7+e1/6+aRoSn9pf5OL1 fz8Lr6yao16//W0a/6DHN1/Kvs/Gf/O3W+/W8d/hs28MN0in3tLXp9p+voVzHvOvvfo2/X0a/6bnLtt/ +t1q+iLzmO4x8WJhmT7sohAw6bNbRbjJB261b07eFJ AwFzrF61fRQ/qhD/zdSvhGIfcDQxykNxbHXWWH1vpq8s0F9W1e/K0V9/9tjC/cGC/aoQ/6pw/lcGp9Xd 11q67gPHz/AtUX8kxkrBiuDOjExNlaTK7HiI5Jujwc7mRq3GuUnR3LzR74b4/uF3use8H0JvgDC6VHj+ 1nYLRtpmkBmS0/8t3B+sSNSD/iI+Q+F8e+F8e+F8ey E+Q+Xz/xbiX1U+o56ygFolfi/QxpjWt4tgySfJftp1/kcZaCe+L863F+RrSD5rOj4iUa3vExPxBPuZ6h 1FdLQ4orupYxuXas6nIqSS434F43+qMRjO1irmU+gR95221htkEnZ8j5/qxvsB/xHkCDkvJtQ/Qj9l/I 0vO9KF0vi+I97G8I/ps3hdfNosl4eWkkNnf/8Ryfck NhZfqQJJYzDRHPSgVv9Ke+N616OuVGYvRpMXFFajdsckwg/1n7nEtO+AjXXELSrZQZDKL33U/hFom/7Q NngS/xGUgVIGShkoZaAcBzgP/4/PnIA8dl+EkcNxoBwHynGAY/F/AWfQPaHO3VWz2OS1Q8Oc4+rZR7AM TxZqz9GCEAtPBaG/fgpEpPCCBNswQOzCWhloG6ydHa 9MUv3XygFZJOdKkd90qShYyiwUNTdUg8wDv8paWVYbnIkCKwOmAYRkrOGoEKFbiVuTBqaT3jcLFNf09U l4wjALoSYyZ5B35M9frt3RD25CMqAM2PMuXPbFKKryTFTfp6YcpED2AUwPRFksYSRQqQy1l9EbKSeLnN WvMTlFyk7040WzSRA6M/YMayx9MQBc3Vw6w5j5D/A9 +PLXtgCE6WonvK9MQmSMvUZMYW0FYFTRZYUnFVdMabtWZJpIzXSsH6P3YSkFdcUtMM8W3eHoy+A4CI6D pAySMkiOg+I8IIojUTNyRAGuPBxySNWnYBEkZEvjPEvPHjlaxwTTFKh/BGWQXA+K/4WiDIoyKMqgKIOi DIoyKMqgKIOiDIr/xsFRxvShlaMfVVpocDuX1esmsj Q4dhCLOMcDMi7UCGjR0CwWDF+BaLfhs0ilkkt9BGBEeN+CDDt1WJxGXjDS7PE9WJ8xXF7RmUhE3KVhgk oPNcCXHYSS3P3ZCHonWpo7wzLQEDT8xtQQuCc9L0zpATSapXTSGaVELI9AkKnQWuNpBQBCrIsbBJ8R9s dHHFAJJrIQuTws9MtVETATwD9z1YPJnoDdPhTKgfWT jHRvT4Z5cHGYZps/grpO2fnAEULlUna4vGvaH/2idalYX3E7aiXXWCaKAyM+w6ojoQz8b0JgyQ8SgSUR ImBDvA0z0UKDapGqatMIUlim9PFG2DYrvaffZxKnSMIGMMND7UNMcaYExkydxW1OMVwh3OWKezTTINAV uLUIEavu3H1AZJNYCzXBCMk/QfBqGpTJHFEGeOBk4L [file] z8UxPUNiRATPYm9+YpL6SPR0kCOxRrr5Cuq0QZxiBLDZFj== ID Date Data Source [id number] 01/01/2021 10:05:38 AM EDT [facility] Name Value Range Interpretation Code Description Data Haylee rce(s) Supporting Document(s) EKG [facility] JHEIOa9aXaLZReUvl3NgRaBoVSBlBI3dwus1C6B3gPSoY3DoqVZhs9emW7YnF1MgIOOzGBMYES6DoSRb jb2 [file] EztIl+manager photo/qeTVAehjlS9hn2pbS8bsdtrxwnQxt0Zz [file] BOBQY5FMWFstrdSULe8Q+eOmMpCtVTAVCHBW8hH0Ep eYHuEmkXA3kMeJlZx+Ihvv4qd3+Bvc7tf1pbQ2RZ9gmVEhBo6bN2X2OmBu7cvtvtFTiXS3Z9nZAvMNnm np6F3BJ0IeYxSVdieHqoLLaAkJlMDK9nQbJ4mwhvyKfC+1+Fj29WB+C+iVi4/jAzz7ZUWehuxDemcfky FPz5DjHHLn1nxNbx7XgGxosjut3eBUDypu5IjN6cIH 90JtRRxn1Tv7PEy0ZAn1syDw8pWB+gZJgA1xTyHji1FkRgLzfXrjjUGgbL7Fz0Wf5DtAy0+lvkk+lvqn xceSLS0+wgmgzlsUpbzJe1X79kgTAlzeJluX0zVY7tNY1JynB3z28a3ZZ3VhbbRpKwCaO80lSQ1G3Q/8 +1//6z//uDmhNn8V+s//+ed//O/xP//5z//957/+86 8T/ocmxj///a/vpZUadV3f0H8P8h9MC+n+C/8DpT/3Dz+emf24f+F20v/QY7t/4Xrse/wy43kZgviq/G +Sk4la9Q/p/pW78tu/z/5WkZHuv/C/vdxx/8zaC7TGvi/Ri50F6P4TKYX39E/rU3g2L5k/9J/p/4Txt+ hl/vELf7L+f+32v24K96+9f30m6/AE2y3n3Y+S5y3L 8c249w7L6n6+1IOY2xs8mTQsmjpj5j5X4LbmQ5o8rxS/9nAZrr/0aaLkhxD/8l/zfnU14ik0ididmuz6 qGdyxmNlxg3U3ftoIKf+d31+bFFQ3hiHt12cwXt85cjwXlj7/efs+m1J9BEGRG2VM7kLc87B4B4C1AQx 60Y+a12h64aws7wmgzLT+EY+v/bGGdLnjcrfzn+m+x f+bank teller+nx42Lld+az96okbFgX/S0N+vqr7cIwdT8p94nXGn6oDgTN48/ch2vv4S++n1piaaNs47Djkryg8 dtB1whdU+ieMdjqlzaFcKU7A3B+7+YUreGqo2b1blnuh+trr+w5idQJYt/lk8srK737n7i74/Xi6eKv3 fTpeXvgvCJcPxfx/91/F/H/3X83x+fw3AQOzVKb26+ 4MN6r6o0M7clqytg/4BmHm8ybC43lCD9wgVe/KG4dp/wMsv/iN6F39wls+/2DJ8I/4C1L8xPeiSuM/rT 3oh0/0RuIw5A+Z/7kfhjxv3Z7Lf5St+s1152ibp4IF/cnX+MJ67bU7O/6l61unm4hFazPR2uwUVu5rCC m5bOlKlnaLf59CEIjMZUkjl0ym1B3pUcB+R69Jq3g0 8Xx08Njt43kJ/Zo/vVlu5v+7Q31+I54zvf1t+2dr/d2v1wY/xu6/A0LutcRg0G/HtoTbz9mBsME0l4hQ L3W+39C7Dmyqlmrd30SFXeUd7BFon4qtdX5/NKpPI/f6WmTisBhOtBOy97//08EKl/q97QWTsP69F2eq t7ORWaTIzcsf92SUs5+YeWnfavcBr42pov8l6/ex6F 3HJH/9/zJKT++2yCkxfb5E8G5u6Xvepkiz2u/+11RrWRmGWstIzPY79X7XFSiOL0px4rAA0+gv8r+L+C /3vwVfb/8/xkPY5vVnR6ArNZGLjJ5uIamx9ADGWUndU1+2Ibb15zCUm5F/IDtGk8J39oObc369s/O3s9 ksRXei8/af65jPzEM1/f0aSdnu1swMCexiTM/S3x1b z3lgh0Otuxfd+q/oKaWBw1CwytoRkuQ/DKjGT6wJ5Px7UY8F/fKbmf4x1W9rGTNkN8fJ884N7z1GZw8k 0hiiPSS0Mju2XdFWBl3T6WX/x9nGiySK81yNI/Wk4RiAEAY4aqDiZ78YOo9uyWTJY3Shmc75sfc8mN3b 2oaPIc0RyuhFESTPJgb/2IiYN4V+96YF5q5gP8/t77 hfNg4/ZPx3yV+YnX8U141rw6gwHI0KVw7Q29cBhGT/YJ4S0s26d/uF4pdXOMm4v754K+eHuIpijDd91B /Xlh/X16xfVP6rK3Lyl304Hw1tAAcs7Ytlk5qM+abFZ4E1xiD4ol4q4pqAA44+z+kuxljkkI3gntY3Gl +tpnC16grFa/dP9CA3V/P/fddbl5tH1NiswOs8t+4i hJfJWKnh++qr3/eXxxjrN+7p9+Gkhfquh1jLKlZ/nJwvLSYe4ZT3nfFb+xmrqk+8RWpTgOr4EueKxgY/ 6RKk331Fnuzt1xvo5nDUtkaNh96WZ7LLyor43d/80WG1qN+fz0G0/K/5ws2kSz14d8L84hjr4QwqPbKl GaWkg019Y/B02hEo3g6qm57W4Vqu/503VWrx51wLh/ fd5XVN+XslZ495jf1MAB4/idia/Z7jIKeHrO/pg5u9d5l4kEt0ea/TG8178c7dWV97+/dfbx8q48/zsT H2RtC0j4Ms9lM4+dvnSeUrzu+F9ZexyJRd/dkqMy6frvy6NLO/3f9HXZH+sucL12j3QxoU/iq+tueZb+ TuA4ia1Ty2/x1rPEUqisRoxN4jptk7f7jZWNy1T6Q8 qb+Yl9Yx0ah8b+MkOm9O1kvPsiExsYDmN8YqTizt856mTHN35bKkKBY36fup10foAz6Jbd6ozg5+CrGi Opv8r/lfqrHC+pv8q+l/qyqhQ4glK/u1eaPOn/JHbhtmj9J4B0SmrBV26M4/PUxhsT+Sfrm27M2F3VF2 F1CZ8Sk6k9xYIdSclnVfJjN132Szc6F7DOgZXHK/zM X9Hma3tl0vkl1s8qLuQpYeprF3gdEjZ1cn/vH0o/cJ4/hY00eJ5d/fh5/PCGn/Y71ohw0KEhwmXD5h4J l7v2j5FeXz/Sxl1R1x/t1Qw/7t5w5hJP4KtJP/PW7Xg8v+rc+xzr8oZuCg2SU8LG1vgut+VjuYWYP3Bg wVcl/2Ob5y3xnus/6r7fo450R3ycO5zwlm56rM0u6Y WO/kFQ7d7LX+X245cF6mlcvLi7N73PwLmeNlNpXK0CK9h0h2kIQ8Po8ynsWC7gQ+A44yZGH9/HDG+497 g4WIN0tzjt585k1wV8s854lSti0KU1N6+l/IGvZuKrCh/vvmZG4+mGaaYLt8sali0M+TnwfxNfRbn7/4 YjvPHkebXwfrtQ/z5Pmam/qrqhvdH7/xPwdv8YU5i5 7woz6ehshqXqCy8ym/ebhjr1P2ce2Z2tdOm+u/dI64eBC7+F+izUJxDe+/518v2h7ePq0vh11C/Vp9ur T+ol7Wqqy/DklfWzn5D3HDe+cL/mAz4YmTP9d8+a+qtyL+Tf/7xuQOvrHj2m97EBZg+Y3d80tlKmZPPj 9fbf0qXI1fU0dEVHkxu67/6g1vHz/QK6i97pOI678V xRsMg6NDsIQnshWjW83njXMn46/Uqlx6+W/uqUlfqr6+25PRTDICE20kUj3I+uV24J0f2eJHwNxxXF7F 4j89qTUd9odl8CJSoPxFvHT/LB/673iEOEvjw68WcEL281Fd6wauSbQ+ts/bOW/hkl6u8025ofC/rzdK RfSI//O1s/teP4odmoR7sd3xHgzne4vt/Eyn2RxHEK /qxob+KrrIOivYr+rH2+yEm7UfAhzbpdgwh+yr6hC+X2eZkq/q+iP6f+quqD/1q8Ntrn5X+bk5c9UZyf PT9r6q+eAUmZTy4KLctKipn7gbSN6P3fItVH+RR5OafFEmK+kO17oTG+N4WTUsmCzJkSnYZM+tY/a+Kr 15S047OE92A37WQj3cvnl+q9Hqn3+oxmDee1VYUcFJ +NcrEeQX+lC/PzGggfSI/xm+eDmX+xV26rBuv73710t0C5lyaQTiG7F3cn2CaB9knUh0HcRTcTfo61Cy 5ajScV+EoD/TkwXwX+b+D/5vlguTE/5/lguTFfBdbfPB+8bpTr/d8D/TnQn/O3mRNF4qQ/Rp//ap4PZp r8R0Ez764TvIoMvghIq/Y+mueD+Y82/u8R2pc1tq7q 204V1k2w7Z2Wj3eK4uxFuKDpBm55Iowm5j/+c/HJoL96C3Y/+veK56l87L+1p/+h1dlnHVwxs4OeiYx1 /siePv+0zSbt4cTk90NW+KrSmHUd+qrFuV1axLbcQq8s/0A+yYxrruLU3z44Hgsx/f3S232kQI8j03xX 2kXgTJWBYUcjljTg8pErmoteV242TKfbI+yqTVKi+B V2fDdz5+A6506kKqdQ80u/NC5A6DduUzKh+GpVndXf+r9R/0a+9ZqETHmIgdTYcl7G/h63LtQ0CF4QxF iMtlz3iuO44QQ1QByjzpH+qnYq+quzXxnwlRW+nickolas/6p/zr+ngjdc+/3vurOfXOv+rZ/bn1zZ//uP6RD vz+77bmvO+Yg5ni1d3y384i/1/9ufXJP/GszjpQ32o 67XLG8sHoV/tSXi1Tf+3+Y/+rpE/a1e4Hp0RcaRcq8zz0umkVeV8285M/ZiNS2YQy6fC4W4+ZSW/6vzZ r2zP+ly21SvO+kHbmN+F88j91a0EA+oJXI/+2giiScWLEvQCWBjfm2qwD6F7K3tZ93mX71wqjxTx19UN 1rPNed/MUP/M0YCwrjQGVNqypE6BJ9Vkjenlf1vgkc 0H+ZFXLBousx63/3sOh206jz5xMhu9k5BgxMZQQ1+o50y/aqv6wzPejA588W8K1BZL7znz/5MPfGU++l DzOS+YC67H/Ba+df265JS5K/PiI6+zkl+95xTzkW+YG/BNpnclBXs9Jq+fdeij/zXgK/MXf0WpSV7lo4 KBdx1Du+Y2oqaPGv7BGmy/Y+M8dUoGi9pzemXpglSL I1ng/H81l8Q7LzW8AwiqmG1l1dfn29/B/jhl1FRLi4+tlWCCDT2oja7j7jXbfBa7pXP+R4n3F/jKEvtV Am/s4LzGkO4x0UMdhq9UG+eZ8+V72ni0Io54zy77s+8+Sancho/S/v/Lf/Ump+BCm15rCP51soywtxA1xEjw 1Jotwm2i//bTrjt3364hc6g3zz4HQ+v39wP4/v/Zk0 dd89P/io21qqkmviK5911i94ph4/709hGp25FZ1660Z+X/9L+f2l1olpaz/f801uGCMf33p74SG0/e+b p98CN7ta7fq095yXggnxo9n585i/r/5Mq8u46w3e+H54/M/yvif6Rb9QIvnNzcay7ycw1AQZuep850As vnU/fypPNw6SktgxcXxjK0q7a3D+zsj4k5JhV2eiob cna0mDT4Tim94jGK/x3Pq38Hikps2BmMLkvC0Eq3g+yvak2W/lBlnj7a3N2R8o2E+OqU/WbHxZp784hs 3zgL/V0b+WOvcmDfftq+kavmifvAqsP01ktHO/rQA/u3f8Od7NB+ucU0s96E+5nW9tsb6yqmgwcvqmrH rL4LO8EoF/FBshvXegqM98Q+N+P1z70E3rX/OrBvPz tx/ehDj42++1X68DoO3COxryNtWe+x75BntFCBBx3+eKUMWx9s2kpzW/x8YN9+TR2Blalk9ZmZJoh57X H0F/Krc7A/H+zPZ/QLB/dwiIMcGHZeR8Q/VfWf+p7kP1ntBXeDid/eM+kpfLXq/3yCewv7ca2TC4+SX3 F6rdy6z0W6pmhqKmBO6049f+wh70ZBXta6bt8c54/Z t/c5fjnZK66GV0Z+H/8nCwkN9t/xLolovUaYI6S+29/aP0t+8rrq115/Z5duftjEZ/NdK/t2r/a8/e02 3GUSuTtTK8rv6vgvsx+wbz8/dOR1woi14/fo/l/OgpOi3rnt8Zz00fV/6me9/y5l4VpPdTo/G5qroxqY 6g9i3ut2lL1N8MKOnuo964BDv/94Gfu6s5R+Ojn23i oI76576MYvE6syJg335YMq/pHHHuCrU/dz6lgPa8ol6lftvICWuoXKD/X/RH5+9TjwlT+eW4MpHw16RP 9Gv+CP4vqF/KYY4Ngp+g6RcOdgsdG6o/c6Eskx9/7t0DXciMmC7Ox+07GpeQgxKv3Ud+oJLqf1x11HQh 9WEdjgA96gFfYLB/oBlXm6kht5jnTYGv2gv7znAKd7 xgsA5bI3tquI/Mph3+300dQXRm4v3x53PMu2i+bpO6xUclR6+l8v/KB0UDpd7af5m+lL726bw9E1hSlS /sBzA/iF4370d4R/8AdrTm9YffDujdy+5rzv0A/6Qn+hH/SF/p0f31Z0pGo5UMV/kI/2QEfxo28VRX/l sL/ytm9/72Ms1nM/ryruAzSUueHebwse78/je/Tdvk f/9hthr4q+6Wn9O85ar/Y9+iOH/1Cngvq36Zi7V1eXxS5wlHpu16QvBY785Mld8M+IjP1CkoY6sQS12i 4fwWcv4Q4hgds2pVd3jL9o+xS54PiQg5CsxfuL+JEh7FC02D8D/Mph3+4H7y/0g35Gv+AH/T14f+E/6G cjH/0McvKyU4F8Cco4wz7/EUb6i09OMlS23GA+Fr6q +gtf1fU+/jju44/bcy582E+2l29fxeZ+9NfnvOA+8lNiarg1cdtm2BD/HkQCN4g3+v+HPc91si58SJ0D zzHnBS/66Fic2LXknCdWP/e2ARbwgHQ4tFqCt+WDm4Ne0h+55zO0Z878++Irfeqa8/rjVz0/+UbJFvy1 b9/9XP/uvM81nx/7c3/c22d84w84z5E/Rr7hsG/317 695CT+2nabopZewMykk4/f/ar/QvcOkmf0lpvg/68//tvftm+v/F9/gdxz3HzxS4sq2F14Vb2bp6Hb/u Pr10ksZ1/lg+8vvvJuT+M2tF713yuikcLDdD+j5Vf9/1ctLd3PUa3jTMD+alDch0bJMbqR5LilFSdW6V yD/EIiSsksc35u5WT5rTuSVlTxS/0YH8GwXYdkOwY8 Ahxgfrd4Jl5V9D64u9jX/mDNxS467N0z2H7+JeQgf/RHISN/Ymweg5nSixH8LkCXthl/hqK/0A+GDn4O pcge3qcDP3iB+ke71aQsR89T3U5PFY/VkD/yjdCD+jG/6qh/vkcB+JDYhs317EbzDs1S6P+MNfqFWJjf Csn3QN1WTevnQNBqM375B8rBIiL+g7EM+QfXH+SP/U WqLjHr1ybKkoYoJGyz6RzyNpBayBM+26vuvX7uxt8pb7JX1zz5gc95w1hu+zALKxkWH855Shikf9T7z+ ++Y3k32BHYT14HvHayc+6g2Y4ewcN54t8Oiyp2q/BV9n+7st/7hsZ7wQvs/ZMY54Bl+sw1b3/73jXPLX xVz7WN+ku+Ny8B0astwv93J085kS/+ln6w21/27Vn/ pz7Sz3j5/99BxEwiB5S/VdefsVeJM/QWYCaG1TrUMpJCc3me4N2gf+PQlc73tnPiph/cr2dmFX5gmzmr Rt4eZ/IpdkY3HOrrObhqUs5v+KZM8MN4Ao/zUbggH+rP8Q0fHq+Ph00WoU2xPZ6bSYdNE33J1W4KVlcK dl8J5U3njKIcxi0Au/NgOL6/gf4G+htjrxIxeDLK/q naDlWN3o7EvZ2id0MU/UDuNxOs46k3/0aMvjtizvsB+8uM6TfM3k3h/bwN5J9Q20d8PpD/CDa9rVWnLl dOgrZSD7Kwn7npn9cJk5jYX0d+I2B/HkOLcgOiKn6ErqV/Lpr6H4P179ljA6q+Party Supply Specialist+xZ0joB/MZeV0+s5 7zmfnNZ+lT9ftpEJ7yAhiRO7osrf/6cH2rXyQShv/4 l2Xhq/w0umUaLZViAH1OR49G+TDmCl4x9PbC4q1qelyEH2c1xp4M0OY0XrfB240rz6F/tP0U7F3Q/5SU 4h4ZLy5LktSXyBL2mr9kQpUa1WarXGx68kYE4uqyE8Mnt0yKs6Y7OVd7eNhWqVn/lTrn/tIjq32fwA2o /aHZK2dYCnx1KRd1W9mAv4czYe/rufDV/T/rp+Mz9H 9cP/j3QH0eN/o5ta3rC/p3ThFJ0ypwMlpxmUtsy/1y4af24juJxryZy1oAvE/5VUI/qMsfsWH6jFE2u2 J/MEGA/mIh/qPeItCVrAAwm2rd4ab0kwjxIC1uUN+S7ZN6wT4P3R32tUb/4nt/TRv+yMk807eIzl//Ntm [file] 7mulq6mNn47dzjujfvtrngPd7NFgutaXByHoi+lrt6 Yia9S3zrse5hF73AZeS+TTu6IPtbvT2i9l9s0j8RrTppgBS9Mipf0ksfD1V8CN9M6rIwN3fllF9b+VhO XwY9U/Yd4LcotSq5WhdpkKmpr+TBPI6UYg5tDwf6OzfDqSyw0EY8jsxCj1+rPd1FFgXaf58Reoc9CN3u LJ6LIdYuXLZOMT6DWJzYg83M0a8VagWQ6xKflYxmgF zR5u0EIUc3FQ5+lm4O/J21+Vi+wMq32cVrUizeIxZuQLGdfYlMjk2TaDnIVci6rAmgZhrX4A62OjFkG0 0G4OrWa0FsKNBb2Lk2XY8LK+BejhBt4DGmjEPzZKvGffErsAuTKR0igD0QzgqS7IL9EL1dByBiXH/Llz gsgZ6p+Kfqa6v1ataeAL4BFW3L+51a8TRO3tRvtGtt I5eh2Mdnw+Qdg+kMCyn4XcveszU8zb5VcrXwKd9s11D1e7dB1kfV9oOFiQEtdwGivz0sbwS+zyB9+Viu 5RhfvoaQN6jxpD5hS03pGaF66sfwVopT+ZugfiGB3uZCn3E70x9Lfbnt+Tc5tMgm3ewabzOSHY3dZfw4 +Axn5+YnkVovz1F5JEkrbusGVVvAm4XXYG/WlGj1Mp ELECTRICAL PANEL BUILDER/BKGCoCVm4+l+wM/Fm0+hvtQdOhg35ShRd1DL4d9qvnXhoRBh4Lifu9N8mQR1jSxZtW9y/ldAL+zFh /Zz6dgyt47MlTwoLpEUHQrafHyo6rdUGKv2ggV/hPS97Ilp5XF8IjB3f+BDcZC/VGi3WxelPTJ9fZXh0 A+FhpPTItP7mLOPODO4w9es1U3+LBR1I2YjCTV1qTC D2J8/6D4VI6U70nAv5NoX1KkRQKqEgN3NO6bO5t02ExKF4UMjE7Ju7+lWwB+Q761CKYixMIaqRdzNIp6 1799T5smnnTXAphaax6mmTempD8hd59+irbUfzS0WOf4FHnjq6+keanu+lp7G/qPrmgaX8lGyq8rOf9LW 1gXb0444JgVaqOpD+1EsK8uacI9U22RfmmgauF91Ir GxtCyt+NsVOLmZy6SZz5ihn9O0CucQrj+nXvm6HAx1RK4pukrRt/C3Ud6Ria9Dwer4GS3rPv7377VYC4 J8LF/xPoHW8KY8T05zvqt88sx9R2AV1z189XAy5yzGxpH7rBPtA+UYKOwPio/jwvjxC7lKv4XAh7EcJ2 xYy3+Zu8867SDXh5TWy9YkZUIN0vej1IWp5Y2nyHym zcfSbVuQre/0bZB6zCs8mMB+dfOyw68KIko3SFyMFynn16TjHoy4CPzAEpYhyFYjzc/y6OTiKniPlQ57 +tV36aMAhrXdW2eReldMc0FXI11+gpJJ6PfWBFJd6O3nPz+J2YnUFkYtczFkAM7CzJh17yS05JJ9+Vhs 1Xm80oR908g+sUnJo9bcC5t87MmMc2KcKUxjqyxx6l abx6LoK5xDcjStV+MGapsQjd2mu2VEAIV6chkoxXbYCPuOtsLrnMq8oTuHwwNW32Fz1MgpeopvQShgfx pugY11FkduajxT3yE81p3o6FkGkjRcGniSjsq2F7NGpJBJCnwD/wXdiLOtm/GA4tQlMSB780s/s+7D78 UTWVc8YG0QQK/EnYh9gI/gg+JjuRv+olD34PSdUP3d fStIOwx0fj26aHt2RQppygNYh+UrgWy9+Em8a5TtDm44pX54ebLwdkpIokAA49GWllwA6eh1RCJifECM VF4R99cIH1/Nsk+9usP0FOw2nSWnw9NHfTzKCRQifRlL+v9h6w6pHyLJ4nooeI8XY1RuFvoC33YukwbN JU/vATS6lcck9LYqyiTPL874LME9twNtmD5Dir8EG4 zzFi44G69Jb6zvkX7D1VhobHL147qxJFKi1zz1rgH8jy8+Z20+lf0zLgp3ikjY40pcMhrhd9IFVPrwXK Q865HO8lWOCoxl00YW73qB6gIoRp5Oy7+ySwF7fsEpU6jMpMu8+IsttmCUT8K6EBxxwuDqaDQ7A9bjxd vwuo7X45ZdoyHFVt1HqI/Ic4BoXLLm2Qdh+Sf4q4sp mA9I7f8zbDrnTqkfK3B+PU2DDwuI8B+sRj+W5mPRm+G6bOu8tV8OU5daRovgUo3K8ifoqJzud7ZqQakv +7I6NBb9TT2oUOcSYcu4AXzVPk9Uo8sFNCVgXg5lAtE+cBcJqPbT6rJGMU3n1lCgmoI+ohYfS7/OzcfS 55zITg1lg3Zj9uDlP4u3y/fDgqewWuy6OaJ2Cy4Sya bp4XlYe3DMrijskx5WpiCfY5/iqmfekEsBrH2ag0BwQGcdCwesTyvtQW/YTfBIw30DrAjDhw+lRxRxtt Oql0o1VfPnbkSpm0tfoOIvr0+c0joWhT4m+Or1hQlvSDcgFeTYz9yCgs3ryA/A2uNcnLht+QRw20GM0Y diSk2RWmXXD+MgvZLb5EFBtNYpf+LfSO6hoT0nUuZS y50DetrrnBvdBz5WVu8E2njcpEjNwqIU4xgjeY/ccW5gmB9o+MwbIxzW1KjFt+VO4+T3ELFEHsudEo/L ww0l0NRvY3t782N4KB1NhhbeVI7mjuJrEQzzr4BvAzuMy33n10V152P2hl3dEK1qtsyh6SX2IhIogI/1 B119xz5vpWz5aIDY2H4TkTZKy+G540gjRqrNs/zAHH sr3cSbUE7Egj1ASu0Qdzyiec8Tic/unaE0SQo8QP/J5j0b8/PixAbBxcfi/b3sssYDcCljIRcKsgaqUF AAl5hYF9sFQTwFh7PuYOXsoVjdc4P0zzMJUF0kJt1XB71vxRb+Tm4JxXK1fDYkR0/0Xpx4J/rZrl1xDJ SmLG6Cm4Yc10hF0RzwqsgQK63+WZ1GMw637P6X2mIq RCy2T6k+ktfMz0zmAN1yKrDqAJUtwyvjZc/J1sEYMt/js4O46PT0oSqBxvgz4AJ0acVfU6cZKEn2YN9H oy9cs574cn72cAcxP+t//+t//oqc1rsk/kb1P//n3//jv//7f/77P//33//1n3+9+ep7/fv//od4rFO6 1/X+upRlY2x8/1/+b839/s08NSKd/v/l5+u50af5rZ 6o/798q//6yw+v/7/9rA4am0ss/cM8mhw6tD18boC/nHPq/7Tzhxn/2l/3nl9+DAf9WnA/xLTr/1/+b4 f8/f/19yyp/3/70y435bcanmfPGV0ibL//Dyv+YF39/+XrW/8PKX7X/Qee9IPtToy0/GDi9//S02xFfi N4ga47Af5poG2ysAzRKi/1le/Pd7YFg5ykmH/72/e+ /g35cYbK/7l+gz3MoA5A/1LkL1y/kL9x/Z5+WyJ7Ru6Mn5pCyfXs5B+O4szTi2pc/re/zF7461/7H/lv fqu83F43C/kb3Azcnxc14gei9wyC/N8Snd14jsL9r50f78t95xbhbss67vahoiq5mTzMes84YPZ+4nqd +TC09ksl5D3Shw57Fjbakc+G/io7l629gS2aQo1D/b Wc/XD8Xpsydrr+VD1altMb+WueezC/B/604F9Bwp/6e9Dfg/2g0CbdGL8MUka27DufP7h/8be/tuq/zX +F02LlV4o++I/r3/6+IvDXweT7//b3eP23+W/If/tb+7O//b3/f/oY9Zcxe/vrlR+6OxWP11++N2ffjm fy4+8iGIr21J9g/78SCrWHE0Re2ywx4nrv5ou9h26/ h3YJ02I/40y/Eu6It4UCXV1j+qW8JeDXf4+9/8/8THTcRQI6a7XCE0rmDc1I/1y05BD7O/KW1u9SW55j f57pV/sct1RXM3COU5tux5F007j/4LPqNq5Aty514wcq/79+vX4iXc/tHrVOds1Q+blck8b0k3/75+si 2y8ak5ZJnKiwfY/QTn+iNH84Yn9AINdo3Fs/X7+Qe7 3M/D1tQkEx+Ht5eL0ie9E2CVjjKV/+IN818/6+8aO4LjZt+/zYvC2i69mNzhDi5YvqQ9y29ryljY/CV9 F+J9/114FJtp9Z/jpre4DE9Ajy+Or+R77N+dGILLz6K/nob+Qae5Z53R/qn/WsivltfNX/ZxwKX93/M1 +Be6qfD1hkWa3J+qv63bw3mywjA34cMf7Q0IbdqAIn mVYm5X0S+9Djtcg45X35VIiyp6VR2H/n+8gWbxzbeT44V9XwgSS0u3rb9ixic+G5Z9pf+FkpLiJ68lGq jfd34/1tfNXi+rm+8FXnC/NRZyl7mLh+Al+b2z52dVvkMmit14UyQ36VR/B9zS9oETuI/lefJZo7ZL2O g/8k9FcGr8qolfFWUKA2fRMK/Ud/ga8U+RiPjdS6Xa DfKFmCG2805qbKyJ792N2s0MnY/T3ob+Gr+x/58uFDLXzV/yD2kY2esJ7sDaDVK/c/rkd/Zt685Jzw/r bb43IxwBb3Wxoma8+B+S181f/qDNt4Zza+bYqUITD9vO/EG7ORAguaCLTUg/pem/ZYJF6t3XnQlbzo16 u/hSb1/7t70zmjveSQsEEf39d/wav6f/31rHtf+Ya8 KywJP3W4/1++dgFRO96HOJtxkHAG91wgvlq04tzo5lNhl7k/62+88ofX3+J71q+/Xu1/2QGCMbjohOc4 Dhara+qcb16Op7WbuufmcB2W/9ce0m48NWZZujytrjxZacJ2vicZh/xDnRI75y28q3fhiB/IX+owtvhk3jk dxW+orz5rHrzzKp1MMSl6d48zm9U/tvfJ+v/5Be+et ttceq9js2wMiw0DyH/L0F/ZSF/zr+r8FU9t/VYP0tk3GBio/3t/wftOWiPP/pkji10K/aq3vFHt8+QXy 2d79HS+J1uexTSXscdgk51Hi00BRm8y+Xv3liQa2m9/esIimh3L191UI/r7/1wfU31LDaXK66w/V2Fr+ 5/8GP3R0957vwId/AUsseJH90Txnvas7w1Y44113P+ F+L2BC6QE/WzHM/Mzg539mfgrqpmA/gWrjhwLq3wBmk+XvmNz8EwbP1VOsnmdi2y347QK+RXa8/+vApf 9TUH+Xh/Ib9ae+Z9mopk8fr88cq59x7novWFn2ovNolqM/ao2cTOUOVcq416UtY+evfeVfjq/st6dmvC 3KidI65Zy+j8ivid8PWR/ED+1Idjn69QM/09D/LnvL JMlTnWxdSvTope0bx+Cvqb3XU2L93mB/W6mM9LdaH+P+hu5ID9j4nh92S6+Pd1xj3A4c9S/nvHs6FhNt DVcry/castaneda/2txlWyq7ZR18OX8550jnIo07+OvZnx/1e7P1R1ih86pQq5AVbF3Q2Fg4aoXgslW8M+3Ngf4 9Rzcr8giScQ/D+BtZzGPLx/D70d8C6B+Q9jEKzokhQ 55fvY6ceTyOK7k8Z9GoVB0YDVbwc/X15bmIkw+hvya/0fbG3Opnka468EJA1B/KrWg+J/SoD12N+c+Z3 A1/tZ75H+2zf196ktpol72C3ZR7bv6kj/bd1WO0n3F/VL0j31J/jU5XMqb+8PrEHVC1f+pnfLeivzHre gv4K+ri8iUMjGjMQG7D+lPKin7R+Q/3or6C/cpCP/s i4s8NT7iMcIM9e8MJB1Gu3aum3m+bzXnI95s+zP+/CV/1/8JXs53r5W24D2hyuM3t/wI60I9TyFN+hH9 zQD27F/C70F/zxO28a1Ev50G+F+YV+cK+F/F3zcG0GrK/5zx26H922Ac/aC/1d6O8a/LzXfI/2StSP/m 70dz/IR3/34OcN+dWG/Gq3/KryF/JbfiuoC7tNSJdg zC/yP3lytjQl2q96kvp2jbz8x0uhAZP+tSG/2ob3F/hq23x/d+Kw9i1jK2LnEn/7FfSDG/zCKRw8eY/c 5N7l6Jp69LKdVR2EsfN85Wg1pbW+tSG/2sBX+4w+ZZ/6Zc2aEyp1deygqe78kNHsXwCSM/KrfQz14/2F vbDET8vkW8fY/X0HkoJdpO555Abg1wyglB/H++tYzz 70sls5Dd/8tT0f0rs46s6EW+pBfyG/5qSkrpb6F/hK+v+sc0d/Ib/agf4CX+3A/ws1oBUyU2w5Rn/agf pGuagVGqc4ynJzsgNoCFs0ms19ZG4V+eRi1J9poyXzyF1UKyp6givJJwnIF/X/OS/sxPwmvr/ICtv3kj z1R2u6Y/0FvtqJ/gJf7UR/bb322XTk9awzB66DsRQY 9UgG4NeL+WI1tfjWFeF/G/ZXAk1rBWi1WXjx6OOLc0Jhv7NWbT+4PlD/lUbrSR4kEW7bMo8jP/QX+MqA c4uKC0A/ZSF/46u9GfQaDQIi/n9QD/nebwqc6mhcB18tCtz6s4IASaejmY8l3O8G5ERSPcrpM8OH16Q/ vY9X0A2ZDm+K/castaneda+qnYq+gt8ZbC/BdLaL39rQP6Q88 aoy3t4N2giGur9xyq8qRQ/aGshH+sZ+BrRLa9zZ+sZ+SqSorn8E6HKz7Whc7CV5xcN+GFVxM2dY9lGt5 IYBc1lvbbb2VxRuoMT/m70d6O/sL+yjfndWM/6nS6TiZdd1GiVkHMJQrf1GtYzD1sqzUN/NnjSDPML+Z YT6MUi9Khavs72S4+aCtGTq0wp6s8/rsOqZ/TdZphf 6AcN+RzN47mPHg6eRqL+MuArO+gv9IMG+GSCjvYffI6Y16y0Nr58wirmpy/egB9JDVh+o36sZ+Antonieta/ur ag/176iWmPhaqJ5Gc70oQsvkIpLG+Duo84rgJ3N/vSDBHnHNYm4qGF+W56ffM30s9BsZU0/Fenb0F/pB C/ZA3khH4TxW/TkU+Xh/ga8M+MqAryzwPQrMb+D9jY Q77h3q9KfKaDp3S/V9ygEzcPRD3//Un9hozJ0VF3+9sKYM0WJ+Cs0vagz3rrGmNMGnZ11p1HdC6VuG4E zoL+LHPhkqWmR2xlf/D+RXB/wfXCEqivtuvdkD02s+8RyfRtrKV74moz/nmfPCKXzl/d+lCpO2h30z37 v+/mubuonwges49eiB006oyk52Vlm///LN3v+vfbv3 f7s25+aDCco358832AoxDd4l4Du9f/8f/t263RJH+mVc6pMaV0/Ap297TbgWvctqvPsh5r6mudb+29Xz nrJvr/V65nXcwdgb859c45/Iz2k99o3zV/KrA/cTvZ12Ie87BygaPK06bI1oi9ynZw10bS47rZsFV06e tK98qyNP/sH1B/mOfEd+1NiY8iQ/Trsiw4NiapbGeI H+nI1R6zoV+dWB/YcSes2vwNYX6apY+dWB/OoUvrr/kY/+Uu57QS14H/2F/SgGakK64N0R6PCcjx2n8P IlfW46XcOR+nrJnud69t086Es5mgMEy6D26SCGOx9FKWqM31Pnm/dw6vwd4/7WO/Rwi5GSslIPkE4vtk u+/M7XvX28KX83eEZuawU/tpGP/yplrcf92gL7bT9I b80QdqJ0fkeFvb7o+xY8cd59eU2/B/09o/89B/89mralJ8+Q20PnrP9P0JaA+sED/xL7jP8s+a5kRIIR 9ib2dQEsxo4iV5+Hhz62sbwebd/AVwfyq+OK/MFXB/KrA/pJTNsn4X/s20/hq77+4PqD69/+0o016sCr a886MF4g/Pxw+Vxzhb7l0p3ooj90OK2Zlm/68tA08w X/7W9f8/Y36n/Zt/f/aU+Mfexp+/b6f5A/2eKvMj7z5QrHxA5uxwL2aoy4/88Kllambf8Kb07Pb+qawc 8nx/761FiOBq2+LgRlIyOlI1y73xG4YA9n3g7ap4Y8I8T89KxL+2d+/Uh69t16eu58MPg2ksW/5bBvd8 iv/Yt6brD8qPp4b1FycJ8EWPk1SP972Xc5U5iZZ74R /Zr17M/sI9vEhz3r/+kk117GcoJu36/RgP4u68/gslD/Rv5G/ti3O+RXLgfPRX/L8SsZfoF1AGrgXchf ukprYLl8G6yT0fPbhh+gqyJ/9Vvps70a/oOu6K/OfuU6/guus1+7jxcUMaHpxscO8WP/Yd/u3I35jH83 hpjQ39s8RxSvR5ZrLxfOuy1o+OmMJk3LjqZbaH+Qf5 DvyHfkB/ID+Yo1xYmV/aBDP+iQXznsrxz+ii111VOzIjRTSflw2R100Ey+0V/0Xmknadp9ZOu8vsF/ct htFbxnPogXh38VHn/u0D091CPL/0GH/6Ab+ai05bYTUdVBswozGm+d/dkN7y/1e66xp9L/8X707LmPrv AP5veM/NnhP+jwH/SD/KjgIt75h0EluGzG/Nj6uICv AdKYf82az0R1omF52yJc+R200ZIO/aBDP+aXSd72yVM/6I73F/bt7nh/YX/lPvI6h/zKHfML+ZVDfuWF y4coOE4h2Ev28JwX+ye5pFYF+yuHftBjzgv+4qsdu/7b73/l//zr8ocSfxRdb5W/DelR75LUH33TPgXi luis fernando/dH/x1W8Cf//tpL75rhJD1n0ytFYI/+1aR0t3I8 [file] M/QOLYkERgtO7DxXJUAR2Uyx3miy+erpmOMf4R+Jean Paul [file] ryGsIfSFW9ukMd5gBeToLQKBA0Wko2DmZFHyYHOXUr3+JnS3DXS7nMBeRmjfPRB6FjSBXJZSH6N= ID Date Data Source [id number] 01/01/2021 10:03:34 AM EDT [facility] Name Value Range Interpretation Code Description Data Haylee rce(s) Supporting Document(s) POC NOVA GLU 324 mg/dL (70-99) H [facility] [place] [facility] STAFF ID Date Data Source [id number] 01/01/2021 09:15:00 AM EDT [facility] Name Value Range Interpretation Code Description Data Haylee rce(s) Supporting Document(s) POC NOVA GLU 285 mg/dL (70-99) H [facility] [place] [facility] ID Date Data Source [id number] 01/01/2021 09:22:49 AM EDT [facility] Name Value Range Interpretation Code Description Data Haylee rce(s) Supporting Document(s) HGB 9.6 g/dL (12.0-16.0) L [facility] HCT 29.0 % (36.0-47.0) L [facility] ID Date Data Source [id number] 01/01/2021 05:56:26 AM EDT [facility] Name Value Range Interpretation Code Description Data Haylee rce(s) Supporting Document(s) POC NOVA GLU 316 mg/dL (70-99) [facility] [place] [facility] [place] [facility] ID Date Data Source [id number] 01/01/2021 03:20:21 AM EDT [facility] Name Value Range Interpretation Code Description Data Haylee rce(s) Supporting Document(s) CALCIUM IONIZED 4.52 mg/dL (4.64-5.28) L [facility] IONIZED CALCIUM NORMALIZED TO PH 7.40 AN D 37 DEGREES C. ID Date Data Source [id number] 01/01/2021 03:06:19 AM EDT [facility] Name Value Range Interpretation Code Description Data Haylee rce(s) Supporting Document(s) PHOSPHORUS 4.0 mg/dL (2.5-4.5) [facility] ID Date Data Source [id number] 01/01/2021 03:06:19 AM EDT [facility] Name Value Range Interpretation Code Description Data Haylee rce(s) Supporting Document(s) MAGNESIUM 2.6 mg/dL (1.7-2.4) H [facility] ID Date Data Source [id number] 01/01/2021 03:06:19 AM EDT [facility] Name Value Range Interpretation Code Description Data Haylee rce(s) Supporting Document(s) SODIUM 138 mmol/L (136-145) [facility] POTASSIUM 3.9 mmol/L (3.6-5.2) [facility] CHLORIDE 106 mmol/L (100-108) [facility] CO2 22 mmol/L (22-31) [facility] ANION GAP 10 mmol/L (7-16) [facility] UREA NITROGEN 63 mg/dL (7-24) H [facility] CREATININE 2.41 mg/dL (0.60-1.00) H [facility] BUN/CREAT RATIO 26.1 RATIO (10.0-20.0) [facility] GLUCOSE 258 mg/dL (70-99) H [facility] CALCIUM 7.0 mg/dL (8.4-10.2) L [facility] GFR 20 ml/min/1.73m2 (>59) L [facility] GFR ( AMER) 24 ml/min/1.73m2 (>59) L [facility] GFR INTERPRETATION [facility] --NORMAL KIDNEY FUNCTION OR MILD DISEASE - GFR >OR= 60CHRONIC KIDNEY DISEASE - GFR 15 - 59RENAL FAILURE - GFR <15 Est. GFR calculation based on the MDRDstudy equation, which assumes a steadystate for creatinine. Est. GFR should notbe used for medication dosing. ID Date Data Source [id number] 01/01/2021 02:25:32 AM EDT [facility] Name Value Range Interpretation Code Description Data Haylee rce(s) Supporting Document(s) WBC 9.5 10*3/uL (4.1-11.0) [facility] RBC 2.52 10*6/uL (4.00-5.40) L [facility] HGB 8.0 g/dL (12.0-16.0) L [facility] HCT 24.0 % (36.0-47.0) L [facility] MCV 95.1 fL (80.0-95.0) H [facility] MCH 31.7 pg (27.0-32.0) [facility] MCHC 33.4 g/dL (32.0-36.0) [facility] RDW 16.8 % (10.5-14.5) H [facility] PLT 162 10*3/uL (150-450) [facility] MPV 10.7 fL (7.1-10.7) [facility] ID Date Data Source [id number] 01/01/2021 12:03:43 AM EDT [facility] Name Value Range Interpretation Code Description Data Haylee rce(s) Supporting Document(s) POC NOVA GLU 268 mg/dL (70-99) H [facility] [place] [facility] [place] [facility] ID Date Data Source [id number] 12/31/2020 06:17:08 PM EDT [facility] Name Value Range Interpretation Code Description Data Haylee rce(s) Supporting Document(s) POC NOVA GLU 122 mg/dL (70-99) H [facility] [place] [facility] ID Date Data Source [id number] 12/31/2020 01:51:26 PM EDT [facility] Name Value Range Interpretation Code Description Data Haylee rce(s) Supporting Document(s) LACTIC ACID 0.8 mmol/L (0.4-2.0) [facility] ID Date Data Source [id number] 12/31/2020 11:47:57 AM EDT [facility] Name Value Range Interpretation Code Description Data Haylee rce(s) Supporting Document(s) POC NOVA GLU 134 mg/dL (70-99) H [facility] ID Date Data Source [id number] 12/31/2020 10:42:29 AM EDT [facility] Name Value Range Interpretation Code Description Data Haylee rce(s) Supporting Document(s) POC SOURCE [facility] PUNCTURE SITE [facility] O2 THERAPY [facility] POC FIO2 40 [facility] EDD TEST [facility] MODE [facility] PEEP/MAP 8 CM H2O [facility] PRESSURE SUPPORT 19 CM H2O [facility] SP RATE 13 BMP [facility] POC PH 7.40 pH (7.35-7.45) [facility] POC PCO2 36.2 MMHG (32.0-48.0) [facility] POC PO2 95 MMHG (83-108) [facility] POC SAT O2 97 % (95-99) [facility] POC BASE DEFICIT 2 MMOL/L (0-2) [facility] POC HCO3 22.4 MMOL/L (21.0-29.0) [facility] POC TOTAL CO2 24 MMOL/L (23.0-32.0) [facility] ID Date Data Source [id number] 12/31/2020 12:01:53 PM EDT [facility] Name Value Range Interpretation Code Description Data Haylee rce(s) Supporting Document(s) TRIGLYCERIDE 179 mg/dL (30-200) [facility] ID Date Data Source [id number] 12/31/2020 12:01:53 PM EDT [facility] Name Value Range Interpretation Code Description Data Haylee rce(s) Supporting Document(s) PHOSPHORUS 4.8 mg/dL (2.5-4.5) H [facility] ID Date Data Source [id number] 12/31/2020 12:01:53 PM EDT [facility] Name Value Range Interpretation Code Description Data Haylee rce(s) Supporting Document(s) MAGNESIUM 1.8 mg/dL (1.7-2.4) [facility] ID Date Data Source [id number] 12/31/2020 11:56:19 AM EDT [facility] Name Value Range Interpretation Code Description Data Haylee rce(s) Supporting Document(s) CALCIUM IONIZED 4.52 mg/dL (4.64-5.28) L [facility] IONIZED CALCIUM NORMALIZED TO PH 7.40 AN D 37 DEGREES C. ID Date Data Source [id number] 12/31/2020 11:18:48 AM EDT [facility] Name Value Range Interpretation Code Description Data Haylee rce(s) Supporting Document(s) APTT 56.7 s (22.0-34.3) H [facility] ID Date Data Source [id number] 12/31/2020 11:18:48 AM EDT [facility] Name Value Range Interpretation Code Description Data Haylee rce(s) Supporting Document(s) PT 13.0 s (9.2-11.9) H [facility] INR 1.25 [facility] SUGGESTED THERAPEUTIC RANGES USING INR F ORSTABILIZED ANTICOAGULATED PATIENTS:STANDARD DOSE THERAPY INR 2.0-3.0 DVT, PE, PREVENT DVT OR EMBOLISMHIGH DOSE THERAPY INR 2.5-3.5 PREVENT EMBOLISM FROM MECHANICAL HEART VALVE ID Date Data Source [id number] 12/31/2020 10:18:50 AM EDT [facility] Name Value Range Interpretation Code Description Data Haylee rce(s) Supporting Document(s) LACTIC ACID 1.3 mmol/L (0.4-2.0) [facility] [place] ID Date Data Source [id number] 12/31/2020 08:46:27 AM EDT [facility] Name Value Range Interpretation Code Description Data Haylee rce(s) Supporting Document(s) POC SOURCE [facility] PUNCTURE SITE [facility] O2 THERAPY [facility] POC FIO2 40 [facility] EDD TEST [facility] MODE [facility] PEEP/MAP 8 CM H2O [facility] PRESSURE SUPPORT 20 CM H2O [facility] SP RATE 17 BMP [facility] POC PH 7.39 pH (7.35-7.45) [facility] POC PCO2 32.3 MMHG (32.0-48.0) [facility] POC PO2 85 MMHG (83-108) [facility] POC SAT O2 96 % (95-99) [facility] POC BASE DEFICIT 5 MMOL/L (0-2) H [facility] POC HCO3 19.3 MMOL/L (21.0-29.0) L [facility] POC TOTAL CO2 20 MMOL/L (23.0-32.0) L [facility] [facility] CL[facility] STAFF ID Date Data Source [id number] 12/31/2020 07:49:59 AM EDT [address] [address]Cgwfobv Name: ABDIRAHMAN YIPDOB: 1950ex: FOrdering Provider: ISAMAR CUMMINSAuthorijosette Prov: ISAMAR CUMMINSReferralexx Provider: Procedure Performed: / XR CHEST PORTABLEExam Date: 12/30/2020 22:26MRN: [id number] Number: [id number] Class: InpatientAccount #: [id number] for Exam: ett placment ng tube and cvadTechnique: AP portable view obtained.Comparison: 12/27/2020Findings: Endotracheal tube in satisfactory position at the level of the aortic arch. NG tube within the stomach. Right-sided central venous catheter ti p in the right atrium. Poor inspiration. Lungs clear. No pneumothorax. No mediastinal widening.IMPRESSION: Distal tip of central venous catheter in the inferior aspect of the right atrium. No acute disease of the chest.Report electronically signed by: ULYSSES DALAL On 12/31/2020 7:49 AMWorkstation ID: [id number] Name Value Range Interpretation Code Description Data Haylee rce(s) Supporting Document(s) ID Date Data Source [id number] 12/31/2020 06:53:08 AM EDT [facility] Name Value Range Interpretation Code Description Data Haylee rce(s) Supporting Document(s) EKG [facility] DDXRVr7iIxXNJrMuy1YmNuAuEVRdYI0hsvw0D2C1lQRoO6CmkNApn1ppO8BeR1QuPVRgNUUKQP9ExGXr jb2 [file] henning++ZVkRi0IylYEJWRr87Lj/KOcEKBy7tE+9mZO6KW uGf6J35FowT6FImvp5HOj7GGXKrBJ9rV27sZwYZGkvEcPxU6gXONxBQPxBpPCv3fVZch9VxpGv2wINzg 8kQM9x3HedTB5sOQCoZwqYjoSefv17fy5dr+t4nzcPGQWY453Z1+eOzH8eGbrc4TEsQO5x2fMzMSeV+W jB764+wCaY+yjCCklNIuvUt43h2xlybgkvEa4w96TW 2VdEAovf9oJ/dmO3XoTohS8Us8BBzRRl16QcV/6Cs1WUrEXj/eeTE8AejD3V5wW41u7cjcHGkquyzvmF KLIdp0mcZM18H9iTODgTTidsdjbobVsST6jcyImfV+M16aoBDRK+3BVRjbyMPlR6xkr98qgMvZBAL/nd ywbypn4+zi7PTqqoouRCMxKdiEDLbfAVzGvgsL/wu2 vp ancillary+ssqv/jJzFPv9JtbBOCDANX1DnwA7AqaHEcCMXghQUCBYB3ZkOeyM/J1R753bn1l+W3iKS6g48hgkB [file] FFU3oxNc0zUhGlCWOSE5Irb8GbAEYiEKCQZi2+YmP7MMO4tWFqCxs6PXZ2WLmoGDKDMb== ID Date Data Source [id number] 12/31/2020 06:42:27 AM EDT [facility] Name Value Range Interpretation Code Description Data Haylee rce(s) Supporting Document(s) POC SOURCE [facility] PUNCTURE SITE [facility] O2 THERAPY [facility] POC FIO2 40 [facility] EDD TEST [facility] MODE [facility] TIDAL VOLUME 420 mL [facility] RATE 15 BPM [facility] PEEP/MAP 8 CM H2O [facility] POC PH 7.37 pH (7.35-7.45) [facility] POC PCO2 33.9 MMHG (32.0-48.0) [facility] POC PO2 79 MMHG (83-108) L [facility] POC SAT O2 95 % (95-99) [facility] POC BASE DEFICIT 5 MMOL/L (0-2) H [facility] POC HCO3 19.6 MMOL/L (21.0-29.0) L [facility] POC TOTAL CO2 21 MMOL/L (23.0-32.0) L [facility] ID Date Data Source [id number] 12/31/2020 03:57:46 AM EDT [facility] Name Value Range Interpretation Code Description Data Haylee rce(s) Supporting Document(s) LACTIC ACID 1.7 mmol/L (0.4-2.0) [facility] [place] ID Date Data Source [id number] 12/31/2020 03:57:36 AM EDT [facility] Name Value Range Interpretation Code Description Data Haylee rce(s) Supporting Document(s) APTT 47.8 s (22.0-34.3) H [facility] ID Date Data Source [id number] 12/31/2020 03:57:36 AM EDT [facility] Name Value Range Interpretation Code Description Data Haylee rce(s) Supporting Document(s) PT 12.5 s (9.2-11.9) H [facility] INR 1.20 [facility] SUGGESTED THERAPEUTIC RANGES USING INR F ORSTABILIZED ANTICOAGULATED PATIENTS:STANDARD DOSE THERAPY INR 2.0-3.0 DVT, PE, PREVENT DVT OR EMBOLISMHIGH DOSE THERAPY INR 2.5-3.5 PREVENT EMBOLISM FROM MECHANICAL HEART VALVE ID Date Data Source [id number] 12/31/2020 04:10:43 AM EDT [facility] Name Value Range Interpretation Code Description Data Haylee rce(s) Supporting Document(s) SODIUM 137 mmol/L (136-145) [facility] POTASSIUM 4.3 mmol/L (3.6-5.2) [facility] CHLORIDE 106 mmol/L (100-108) [facility] CO2 21 mmol/L (22-31) L [facility] ANION GAP 10 mmol/L (7-16) [facility] UREA NITROGEN 53 mg/dL (7-24) H [facility] CREATININE 2.10 mg/dL (0.60-1.00) H [facility] BUN/CREAT RATIO 25.2 RATIO (10.0-20.0) [facility] GLUCOSE 167 mg/dL (70-99) H [facility] CALCIUM 7.7 mg/dL (8.4-10.2) L [facility] GFR 23 ml/min/1.73m2 (>59) L [facility] GFR ( AMER) 28 ml/min/1.73m2 (>59) L [facility] GFR INTERPRETATION [facility] --NORMAL KIDNEY FUNCTION OR MILD DISEASE - GFR >OR= 60CHRONIC KIDNEY DISEASE - GFR 15 - 59RENAL FAILURE - GFR <15 Est. GFR calculation based on the MDRDstudy equation, which assumes a steadystate for creatinine. Est. GFR should notbe used for medication dosing. ID Date Data Source [id number] 12/31/2020 03:45:51 AM EDT [facility] Name Value Range Interpretation Code Description Data [facility](s) Supporting Document(s) WBC 17.3 10*3/uL (4.1-11.0) H [facility] RBC 3.20 10*6/uL (4.00-5.40) L [facility] HGB 9.9 g/dL (12.0-16.0) L [facility] HCT 30.2 % (36.0-47.0) L [facility] MCV 94.6 fL (80.0-95.0) [facility] MCH 31.0 pg (27.0-32.0) [facility] MCHC 32.8 g/dL (32.0-36.0) [facility] RDW 16.4 % (10.5-14.5) H [facility] PLT 260 10*3/uL (150-450) [facility] MPV 10.1 fL (7.1-10.7) [facility] ID Date Data Source [id number] 12/31/2020 01:13:59 AM EDT [facility] Name Value Range Interpretation Code Description Data Haylee rce(s) Supporting Document(s) LACTIC ACID 2.8 mmol/L (0.4-2.0) H [facility] ID Date Data Source [id number] 12/31/2020 12:48:13 AM EDT [facility] Name Value Range Interpretation Code Description Data Haylee rce(s) Supporting Document(s) POC NOVA GLU 185 mg/dL (70-99) H [facility] ID Date Data Source [id number] 12/30/2020 10:37:43 PM EDT [facility] Name Value Range Interpretation Code Description Data [facility]lee rce(s) Supporting Document(s) POC TEMPERATURE [facility] 37.0C POC SOURCE [facility] PUNCTURE SITE [facility] O2 THERAPY [facility] POC FIO2 60 [facility] EDD TEST [facility] MODE [facility] TIDAL [facility]OLUME 420 mL [facility] RATE 15 BPM [facility] PEEP/MAP 8 CM H2O [facility] PRESSURE SUPPORT 20 CM H2O [facility] SP RATE 0 BMP [facility] POC PH 7.35 pH (7.35-7.45) [facility] POC PCO2 33.5 MMHG (32.0-48.0) [facility] POC PO2 100 MMHG (83-108) [facility] POC SAT O2 97 % (95-99) [facility] POC BASE DEFICIT 6 MMOL/L (0-2) H [facility] POC HCO3 18.4 MMOL/L (21.0-29.0) L [facility] POC TOTAL CO2 19 MMOL/L (23.0-32.0) L [facility] ID Date Data Source [id number] 12/30/2020 10:39:38 PM EDT [facility] Name Value Range Interpretation Code Description Data [facility]lee rce(s) Supporting Document(s) LACTIC ACID 3.3 mmol/L (0.4-2.0) H [facility] [place] ID Date Data Source [id number] 12/30/2020 11:59:21 PM EDT [facility] Name Value Range Interpretation Code Description Data Haylee rce(s) Supporting Document(s) PROCALCITONIN @ 21.42 ng/mL (<0.10) H [facility] INTERPRETATION OF RESULT < 0.51 Sepsis is not likely.0.51-2.00 Sepsis is possible, but other conditions are known to elevate PCT.2.01-9.99 Sepsis is likely, unless other causes are known. > 9.99 Important systemic inflammatory response, almost exclusively due to severe bacterial sepsis or septic shock.PERFORMED AT [address] [place] [id number] ID Date Data Source [id number] 12/30/2020 11:37:19 PM EDT [facility] Name Value Range Interpretation Code Description Data Haylee rce(s) Supporting Document(s) PHOSPHORUS 5.5 mg/dL (2.5-4.5) H [facility] ID Date Data Source [id number] 12/30/2020 11:37:19 PM EDT [facility] Name Value Range Interpretation Code Description Data Haylee rce(s) Supporting Document(s) MAGNESIUM 2.1 mg/dL (1.7-2.4) [facility] ID Date Data Source [id number] 12/30/2020 11:37:19 PM EDT [facility] Name Value Range Interpretation Code Description Data Haylee rce(s) Supporting Document(s) SODIUM 137 mmol/L (136-145) [facility] POTASSIUM 4.0 mmol/L (3.6-5.2) [facility] CHLORIDE 106 mmol/L (100-108) [facility] CO2 18 mmol/L (22-31) L [facility] ANION GAP 13 mmol/L (7-16) [facility] UREA NITROGEN 52 mg/dL (7-24) H [facility] CREATININE 2.19 mg/dL (0.60-1.00) H [facility] BUN/CREAT RATIO 23.7 RATIO (10.0-20.0) [facility] GLUCOSE 146 mg/dL (70-99) H [facility] CALCIUM 8.8 mg/dL (8.4-10.2) [facility] GFR 22 ml/min/1.73m2 (>59) L [facility] GFR ( AMER) 27 ml/min/1.73m2 (>59) L [facility] GFR INTERPRETATION [facility] --NORMAL KIDNEY FUNCTION OR MILD DISEASE - GFR >OR= 60CHRONIC KIDNEY DISEASE - GFR 15 - 59RENAL FAILURE - GFR <15 Est. GFR calculation based on the MDRDstudy equation, which assumes a steadystate for creatinine. Est. GFR should notbe used for medication dosing. ID Date Data Source [id number] 12/30/2020 10:55:16 PM EDT [facility] Name Value Range Interpretation Code Description Data Haylee rce(s) Supporting Document(s) APTT >150.0 s (22.0-34.3) H [facility] IF RESULTS ARE QUESTIONABLE/PLEASE RECOL LECT SAMPLEALERTED CRITICAL RESULT TOKAT[place]([id number]) [place] [address] ON 12/30/20 AT 4473 UD [id number] ID Date Data Source [id number] 12/30/2020 10:23:45 PM EDT [facility] Name Value Range Interpretation Code Description Data [facility] rce(s) Supporting Document(s) WBC 16.3 10*3/uL (4.1-11.0) H [facility] IF RESULTS ARE QUESTIONABLE/PLEASE RECOL LECT SAMPLE RBC 2.80 10*6/uL (4.00-5.40) L [facility] HGB 8.8 g/dL (12.0-16.0) L [facility] HCT 26.9 % (36.0-47.0) L [facility] MCV 96.2 fL (80.0-95.0) H [facility] MCH 31.5 pg (27.0-32.0) [facility] MCHC 32.7 g/dL (32.0-36.0) [facility] RDW 16.2 % (10.5-14.5) H [facility] PLT 249 10*3/uL (150-450) [facility] MPV 10.1 fL (7.1-10.7) [facility] ID Date Data Source [id number] 12/30/2020 10:00:15 PM EDT [facility] Name Value Range Interpretation Code Description Data Haylee rce(s) Supporting Document(s) POC NOVA GLU 149 mg/dL (70-99) H [facility] ID Date Data Source [id number] 12/30/2020 09:12:12 PM EDT [facility] Name Value Range Interpretation Code Description Data Haylee rce(s) Supporting Document(s) POC TEMPERATURE [facility] 36.61C POC SOURCE [facility] POC FIO2 100 [facility] CP BYPASS [facility] POC PH 7.35 pH (7.35-7.45) [facility] TEMPERATURE CORRECTED VALUE POC PCO2 35.1 MMHG (32.0-48.0) [facility] TEMPERATURE CORRECTED VALUE POC PO2 151 MMHG (83-108) H [facility] TEMPERATURE CORRECTED VALUE POC SAT O2 99 % (95-99) [facility] POC BASE DEFICIT 6 MMOL/L (0-2) H [facility] POC HCO3 19.3 MMOL/L (21.0-29.0) L [facility] POC TOTAL CO2 20 MMOL/L (23.0-32.0) L [facility] [place] [facility]FORMED BY [facility] POC HCT 28 % (36.0-47.0) L [facility] POC SODIUM 135 MMOL/L (136-145) L [facility] POC POTASSIUM 4.4 MMOL/L (3.6-5.2) [facility] POC IONIZED CALCIUM 3.6 MG/DL (4.6-5.3) L [facility] POC GLU 176 MG/DL (70-99) H [facility] [place] [facility] [place] [facility] ID Date Data Source [id number] 12/30/2020 08:06:36 PM EDT [facility] Name Value Range Interpretation Code Description Data Haylee rce(s) Supporting Document(s) POC TEMPERATURE [facility] 36.8C POC SOURCE [facility] POC FIO2 100 [facility] CP BYPASS [facility] POC PH 7.27 pH (7.35-7.45) L [facility] TEMPERATURE CORRECTED VALUE POC PCO2 37.9 MMHG (32.0-48.0) [facility] TEMPERATURE CORRECTED VALUE POC PO2 266 MMHG (83-108) H [facility] TEMPERATURE CORRECTED VALUE POC SAT O2 100 % (95-99) H [facility] POC BASE DEFICIT 9 MMOL/L (0-2) H [facility] POC HCO3 17.4 MMOL/L (21.0-29.0) L [facility] POC TOTAL CO2 19 MMOL/L (23.0-32.0) L [facility] [facility] POC HCT 26 % (36.0-47.0) L [facility] [place] [facility] POC SODIUM 132 MMOL/L (136-145) L [facility] POC POTASSIUM 4.2 MMOL/L (3.6-5.2) [facility] POC IONIZED CALCIUM 3.9 MG/DL (4.6-5.3) L [facility] POC GLU 190 MG/DL (70-99) H [facility] [place] [facility] PER[facility] [place] [facility] ID Date Data Source [id number] 12/30/2020 06:37:18 PM EDT [facility] INFORMATIONPatient MRN Name Date of Age Gend*PT [id number] Abdirahman Yip 1950 70 years F IPPT Location Admission Date/Time Visit ID Attending [id number] 12/26/20 1512 --- Leana Barron MD([id number]) EPI ID CSN Admitting Provider [id number] Leana Barron MD([id number])Name: Abdirahman YipMRN: [id number] Surgeon: Amari SMILEY-surgeon: Dr. Erich Barron.PREOPERATIVE DX: Mesenteric ischemia. .POSTOPERATIVE DX:Mesenteric ischemia with ischemic mid small bowel.Surgery performed Exploratory laparotomy and resection of a segment of smallbowel measuring 120 cm with primary anastomosis.ANESTHESIA: General.COMPLICATIONS: None.Specimen: 120 cm o f small bowelEBL: Less than 50 cc for my part.REASON FOR SURGERY: Patient was on the vascular service with chronic mesentericischemia with recent acute on chronic changes and a decision was made to takethe patient to operating room as soon as possible. .Informed Consent:A thorough informed consent was taken from the patient in the hospital and thecomplications including but not limited to infection, bleeding, injury toabdominal viscera with their own surgical management and chronic pain syndromewas again discussed with patient in the preop holding area. Patient seemed tounderstand the complications and agree with the planned procedure.DESCRIPTION OF PROCEDURE:The patient was taken to the OR, placed supine on the table. After successfulendotracheal intubation, anterior abdominal wall was prepped and draped in usualfashion. A midline laparotomy was planned and an incision was made carried downto the fascia, carefully abdominal cavity was entered.Patient had a previous Clive-en-Y gastric bypass and some lyse adhesions wasrequired to enter the abdominal cavity. Once that was done we identified thatmid to distal small bowel is ischemic and has patchy areas of transmuralnecrosis. It was not perforated at this point of time there was some free fluidin the abdominal cavity.This area was deemed to be resected at this time, and using a hemostat on eitherside, the mesentery windows were created; and using an Endo MANUEL 75 staplerproximally the bowel was resected. Similarly distally another window wascreated in the mesentery and a reload of the Endo Manuel 55 stapler was fired. Themesentery was taken down using Super jaw. Once that was done, the small segmentof small bowel was given as a specimen, and then we decided to do a [id number].At this point, 3-0 silk stay-sutures were placed on the each side of the smallbowel. An enterotomy was created on both sides to create the anastomosis.Then, another MANUEL 75 was fired to create the anastomosis by introducing thestapler in to each lumen. The TA 60 was fired across to complete theanastomosis and which was oversewn and imbricated using 4-0 Ethibond. Themesenteric defect was closed using 3-0 silk sutures in interrupted fashion.At this point of time I left the operating room Dr. Erich Barron would continue hispart where a plan of mesenteric bypass was in progress. His portion will bedictated in a separate note by him. At the time of my departure from theoperating room patient did not have any hemodynamic compromise.I called the patient's family and explained to her my surgical procedure and theguarded prognosisHermelinda Velez MDGaylord Hospital 16:33 PM Name Value Range Interpretation Code Description Data Haylee rce(s) Supporting Document(s) ID Date Data Source [id number] 12/30/2020 06:20:42 PM EDT [facility] NT INFORMATIONPatient MRN Name Date of Age Gend*PT [id number] Abdirahman Yip 1950 70 years F IPPT Location Admission Date/Time Visit ID Attending Provider --- --- --- --- EPI ID CSN Admitting Provider [id number] ---AirwayPatient location during procedure: ORUrgency: emergentDifficult airway: noAdvanced airway equipment used: noStaffingPerformed by: Tiara Wood CRNAAnesthesiologist: Bobby Brock MDIndications and Patient ConditionIndications for airway management: anesthesiaPreoxygenated: yesPatient position: supineIn-line stabilization: noMask ventilation: 0 - not attemptedFinal Airway/ApproachesFinal airway type: ETTNumber of attempts at final approach: 1Number of other approaches attempted: 0Final Airway DetailsFinal ETT airway: ETT - singleCuffed: yesTechnique used for successful ETT placement: direct laryngoscopyCricoid pressure: yesRSI: yesInsertion site: oralBlade type/size: MAC 3.5ETT size: 7.5 mmMeasured from: lipsETT to lips: 21 cmPlacement verified by: chest auscultation, + ETCO2 and palpation of cuffAuscultation: CTA and equal breath sounds bilateralGrade view: grade I - full view of glottisAdditional NotesI performed this patients' endotracheal intubation which required substantiallyincreased work beyond that of the typical emergency endotracheal intubationbased on the need to use COVID-19 precautions which required increased time andskill employed through use of personal protective equipment in preparing for andduring the intubation as well as the additional time spent properly disposing ofthe equipment upon completion of the procedure. Name Value Range Interpretation Code Description Data Haylee rce(s) Supporting Document(s) ID Date Data Source [id number] 01/03/2021 01:03:45 AM EDT [facility] [place] [facility] SPEC EXP DATE 1PATI ENT ABO/Rh A POSITIVEANTIBODY SCREEN NEGATIVETESTING SITE PERFORMED AT [address] [place] [address] [id number] BANK COMMENT BLOOD TYPE CONFIRMED.UNIT NUMBER [id number] COMPONENT TYPE LEUKOPOOR RED CELLSUNIT DIVISION 00STATUS OF UNIT TRANSFUSEDTRANSFUSION STATUS OK TO TRANSFUSECROSSMATCH RESULT COMPATIBLEUNIT NUMBER [id number] COMPONENT TYPE LEUKOPOOR RED CELLSUNIT DIVISION 00STATUS OF UNIT REL F ROM ALLOCTRANSFUSION STATUS OK TO TRANSFUSECROSSMATCH RESULT COMPATIBLEUNIT NUMBER [id number] COMPONENT TYPE LEUKOPOOR RED CELLSUNIT DIVISION 00STATUS OF UNIT REL FROM ALLOCTRANSFUSION STATUS OK TO TRANSFUSECROSSMATCH RESULT COMPATIBLEUNIT NUMBER [id number] COMPONENT TYPE LEUKOPOOR RED CELLSUNIT DIVISION 00STATUS OF UNIT TRANSFUSEDTRANSFUSION STATUS OK TO TRANSFUSECROSSMATCH RESULT COMPATIBLE Name Value Range Interpretation Code Description Data Haylee rce(s) Supporting Document(s) TYPE AND SCREEN [facility] [place] [facility] ID Date Data Source [id number] 01/04/2021 11:20:52 AM EDT [facility] [facility] SPECIMEN DESCRIPTION PERIPHERALSP ECIAL REQUESTS NONECULTURE RESULTS NO GROWTH 5 DAYSREPORT STATUS FINAL 01/04/2021 Name Value Range Interpretation Code Description Data Haylee rce(s) Supporting Document(s) ID Date Data Source [id number] 01/04/2021 11:20:52 AM EDT [facility] [facility] SPECIMEN DESCRIPTION PERIPHERALSP ECIAL REQUESTS NONECULTURE RESULTS NO GROWTH 5 DAYSREPORT STATUS FINAL 01/04/2021 Name Value Range Interpretation Code Description Data Haylee rce(s) Supporting Document(s) ID Date Data Source [id number] 12/30/2020 05:11:39 PM EDT [facility] [place] [facility] Name Value Range Interpretation Code Description Data Haylee rce(s) Supporting Document(s) POC NOVA GLU 269 mg/dL (70-99) H [facility] [place] [facility] ID Date Data Source [id number] 12/30/2020 04:51:19 PM EDT [facility] [place] [facility] Name Value Range Interpretation Code Description Data Haylee rce(s) Supporting Document(s) POC NOVA GLU 237 mg/dL (70-99) H [facility] [place] [facility] ID Date Data Source [id number] 01/04/2021 06:30:32 PM EDT [facility] [facility] Name Value Range Interpretation Code Description Data Haylee rce(s) Supporting Document(s) VITAMIN B1 314 nmol/L H [facility] [place] [facility] Reference range: 70 to 180 INTERPRETIVE INFORMATION: Vitamin B1, Whole Blood This assay measures the concentration of thiamine diphosphate (TDP), the primary active form of vitamin B1. Approximately 90 percent of vitamin B1 present in whole blood is TDP. Thiamine and thiamine monophosphate, which comprise the remaining 10 percent, are not measured. This test was developed and its performance characteristics determined by [facility]. It has not been cleared or approved by the US Food and Drug Administration. This test was performed in a CLIA certified laboratory and is intended for clinical purposes. Performed By: [facility] [address] [place] [id number] Review Engineer: Berna Rosado MD ID Date Data Source [id number] 12/30/2020 08:16:58 PM EDT [facility] [place] [facility] Name Value Range Interpretation Code Description Data Haylee rce(s) Supporting Document(s) VITAMIN B12 @ >2000 pg/mL (193-986) H [facility] [place] [facility] ID Date Data Source [id number] 12/30/2020 08:16:58 PM EDT [facility] [place] [facility] Name Value Range Interpretation Code Description Data Haylee rce(s) Supporting Document(s) FOLATE @ >20.0 ng/mL (3.1-17.5) H [facility] [place] [facility] ID Date Data Source [id number] 12/30/2020 06:56:16 PM EDT [facility] [place] [facility] Name Value Range Interpretation Code Description Data Haylee rce(s) Supporting Document(s) BILIRUBIN,UNCONJ. 0.3 mg/dL (0.0-0.7) [facility] ID Date Data Source [id number] 12/30/2020 06:56:16 PM EDT [facility] Name Value Range Interpretation Code Description Data Haylee rce(s) Supporting Document(s) BILIRUBIN,CONJUGATED 0.1 mg/dL (0.0-0.3) [facility] ID Date Data Source [id number] 12/30/2020 06:56:05 PM EDT [facility] Name Value Range Interpretation Code Description Data Haylee rce(s) Supporting Document(s) LDH 280 U/L (84-246) H [facility] [place] [facility] ID Date Data Source [id number] 12/30/2020 06:56:05 PM EDT [facility] Name Value Range Interpretation Code Description Data Haylee rce(s) Supporting Document(s) CK 108 U/L (26-192) [facility] ID Date Data Source [id number] 12/30/2020 06:55:50 PM EDT [facility] Name Value Range Interpretation Code Description Data Haylee rce(s) Supporting Document(s) SODIUM 128 mmol/L (136-145) L [facility] [facility] POTASSIUM 4.7 mmol/L (3.6-5.2) [facility] [place] [facility] CHLORIDE 97 mmol/L (100-108) L [facility] [facility] CO2 16 mmol/L (22-31) L [facility] [place] [facility] ANION GAP 15 mmol/L (7-16) [facility] [place] [facility] UREA NITROGEN 60 mg/dL (7-24) H [facility] [place] [facility] CREATININE 2.78 mg/dL (0.60-1.00) H [facility] BUN/CREAT RATIO 21.6 RATIO (10.0-20.0) H [facility] GLUCOSE 207 mg/dL (70-99) H [facility] [place] [facility] CALCIUM 8.1 mg/dL (8.4-10.2) L [facility] [place] [facility] TOTAL PROTEIN 6.2 g/dL (6.4-8.2) L [facility] [place] [facility] ALBUMIN 1.9 g/dL (3.2-4.5) L [facility] [facility] GLOBULIN 4.3 g/dL (2.7-4.3) [facility] ALB/GLOB RATIO 0.4 RATIO [facility] [place] [facility] ALKALINE PHOSPHATASE 112 U/L (45-117) [facility] BILIRUBIN,TOTAL 0.4 mg/dL (0.0-1.0) [facility] [place] [facility] PLEASE NOTE:Total bilirubin results may be falselyelevated in patients taking Eltrombopag. AST (SGOT) 107 U/L (11-39) H [facility] [place] [place] [facility] ALT (SGPT) 57 U/L (12-78) [facility] [place] [facility] GFR 17 ml/min/1.73m2 (>59) L [facility] [place] [facility] GFR ( AMER) 20 ml/min/1.73m2 (>59) L [facility] [place] [facility] GFR INTERPRETATION [facility] --NORMAL KIDNEY FUNCTION OR MILD DISEASE - GFR >OR= 60CHRONIC KIDNEY DISEASE - GFR 15 - 59RENAL FAILURE - GFR <15 Est. GFR calculation based on the MDRDstudy equation, which assumes a steadystate for creatinine. Est. GFR should notbe used for medication dosing. ID Date Data Source [id number] 12/30/2020 06:55:50 PM EDT [facility] Name Value Range Interpretation Code Description Data Haylee rce(s) Supporting Document(s) LIPASE 13 U/L (65-230) L [facility] ID Date Data Source [id number] 12/30/2020 06:55:50 PM EDT [facility] Name Value Range Interpretation Code Description Data Haylee rce(s) Supporting Document(s) AMYLASE 16 U/L (25-115) L [facility] [place] [facility] ID Date Data Source [id number] 12/30/2020 05:24:35 PM EDT [facility] Name Value Range Interpretation Code Description Data Haylee rce(s) Supporting Document(s) APTT 46.4 s (22.0-34.3) H [facility] [place] [place] [facility] ID Date Data Source [id number] 12/30/2020 05:16:10 PM EDT [facility] Name Value Range Interpretation Code Description Data Haylee rce(s) Supporting Document(s) WBC 35.5 10*3/uL (4.1-11.0) H [facility] [place] [place] [facility] CONSISTENT WITH PREVIOUS RESULTS RBC 3.53 10*6/uL (4.00-5.40) L [facility] [place] [facility] HGB 11.0 g/dL (12.0-16.0) L [facility] [facility] HCT 34.9 % (36.0-47.0) L [facility] [facility] MCV 99.0 fL (80.0-95.0) H [facility] [place] [facility] MCH 31.1 pg (27.0-32.0) [facility] MCHC 31.4 g/dL (32.0-36.0) L [facility] [facility] RDW 16.7 % (10.5-14.5) H [facility] [place] [place] [facility] PLT 354 10*3/uL (150-450) [facility] [place] [facility] MPV 10.6 fL (7.1-10.7) [facility] ID Date Data Source [id number] 12/30/2020 03:57:50 PM EDT [facility] NT INFORMATIONPatient MRN Name Date of Age Gend*PT [id number] Abdirahman Yip 1950 70 years F IPPT Location Admission Date/Time Visit ID Attending [id number] 12/26/20 1512 --- Leana Barron MD([id number]) EPI ID CSN Admitting Provider [id number] Leana Barron MD([id number])Abdirahman YipMRN:[id number] for consult: I was consulted by vascular service to evaluate this patientfor worsening abdominal pain. Patient explains to me that she has had chronicabdominal pain now with somewhat worse. Denies any nausea or vomiting.Past Medical HistoryPast Medical History:Diagnosis Date CAD (coronary artery disease) s/p CABG, Followed by Dr Bocanegra Carotid artery disease 12/27/2014 s/p LCEA, Dr Nieves Chronic vascular disorder of intestine CKD (chronic kidney disease), stage III followed by Dr Lira Colon polyp Depressed Diabetes Diastolic CHF GERD (gastroesophageal reflux disease) Glaucoma History of transfusion Hyperlipidemia Hypertension Macular degeneration Mesenteric artery stenosis Metabolic syndrome GA (myocardial infarction) Osteoarthritis PAF (paroxysmal atrial fibrillation) H/O, s/p atrial ablation S/P gastric bypass 07/2012 Dr Olivo Sleep apnea CPAP TIA (transient ischemic attack)Past Surgical HistoryPast Surgical History:Procedure Laterality Date ABDOMINAL HERNIA REPAIR N/A 10/07/2019 Procedure: LAPAROSCOPY, EXPLORATORY, WITH EXTENSIVE LYSIS OF ADHESIONS, ANDEVALUATION OF INTERNAL HERNIA; Surgeon: Nghia Butterfield MD; Laterality: N/A; ATRIAL ABLATION SURGERY 2009 CARDIAC CATHETERIZATION 2008,2012 CATARACT EXTRACTION W/ INTRAOCULAR LENS IMPLANT, BILATERAL CHOLECYSTECTOMY COLONOSCOPY CORONARY ARTERY BYPASS GRAFT 1993 ELBOW FRACTURE SURGERY Right EYE SURGERY LASER FOR GLAUCOMA LAPAROSCOPIC INCISIONAL / UMBILICAL / VENTRAL HERNIA REPAIR LUMBAR SPINE SURGERY 2010 PANENDOSCOPY N/A 01/03/2017 Procedure: ENDOSCOPY W ANESTHESIA; Surgeon: Kristie Cisneros MD; Laterality:N/A; CLIVE-EN-Y PROCEDURE 2013 UPPER GASTROINTESTINAL ENDOSCOPY VASCULAR SURGERY Left 12/27/2014 Procedure: EVERSION CAROTID ENDARTERECTOMY LEFT; Surgeon: Collin Nieves MD;Location: [facility]; Service: Vascular; Laterality: Left; WISDOM TOOTH EXTRACTIONMedications Prior to AdmissionMedication Sig Dispense Refill Last Dose acetaminophen (TYLENOL) 650 MG CR tablet Take 650 mg by mouth every 8 (eight)hours as needed for pain 12/26/2020 at Unknown time allopurinol (ZYLOPRIM) 100 MG tablet Take 100 mg by mouth daily 12/26/2020 atUnknown time Ammonium Lactate 10 % CREA Apply topically daily as needed (for dry skin)Past Month at Unknown time aspirin EC 81 MG EC tablet Take 81 mg by mouth 2 (two) times a day 12/26/2020t Unknown time atorvastatin (LIPITOR) 10 MG tablet Take 10 mg by mouth nightly 12/25/2020 atUnknown time brimonidine (ALPHAGAN) 0.2 % ophthalmic solution Administer 1 drop to botheyes 2 (two) times a day 12/26/2020 at Unknown time Calcium Citrate-Vitamin D 315-250 MG-UNIT TABS Take 1 tablet by mouth 2 (two)times a day 12/26/2020 at Unknown time clopidogrel (PLAVIX) 75 MG tablet Take 1 tablet (75 mg total) by mouth daily30 tablet 11 12/26/2020 at Unknown time docusate sodium (COLACE) 100 MG capsule Take 200 mg by mouth nightly12/25/2020 at Unknown time DULoxetine (CYMBALTA) 60 MG capsule Take 60 mg by mouth nightly 12/25/2020 atUnknown time esomeprazole (NEXIUM) 40 MG capsule Take 40 mg by mouth 2 (two) times a day at Unknown time ferrous gluconate (FERGON) 324 MG tablet Take 324 mg by mouth daily 12/26/2020t Unknown time furosemide (LASIX) 20 MG tablet Take 20 mg by mouth 2 (two) times a day at Unknown time gabapentin (NEURONTIN) 400 MG capsule Take 400 mg by mouth 3 (three) times aday 12/26/2020 at Unknown time Insulin Aspart (NOVOLOG FLEXPEN) 100 UNIT/ML SOPN Inject under the skin 3times daily sliding scale Past Week at Unknown time Insulin Glargine, 1 Unit Dial, (MARY SOLOSTAR) 300 UNIT/ML SOPN Inject 30Units under the skin nightly 12/25/2020 at Unknown time isradipine (DYNACIRC) 2.5 MG capsule Take 2.5 mg by mouth 2 (two) times a day12/26/2020 at Unknown time latanoprost (XALATAN) 0.005 % ophthalmic solution Administer 1 drop to both eyes nightly 12/25/2020 at Unknown time levothyroxine (SYNTHROID, LEVOTHROID) 50 MCG tablet Take 50 mcg by mouth daily12/26/2020 at Unknown time memantine (NAMENDA) 10 MG tablet Take 10 mg by mouth 2 (two) times a day12/26/2020 at Unknown time metoprolol succinate (TOPROL-XL) 25 MG 24 hr tablet Take 25 mg by mouth daily12/26/2020 at Unknown time nitroglycerin (NITROSTAT) 0.[address] 0.4 mg under the tongue every5 (five) minutes as needed for chest pain Unknown at Unknown time spironolactone (ALDACTONE) 25 MG tablet Take 25 mg by mouth 2 (two) times aday 12/26/2020 at Unknown time SUPER B COMPLEX/C PO Take 1 tablet by mouth daily 12/26/2020 at Unknown time therapeutic multivitamin-minerals (CENTRUM SILVER ADULT 50+) tablet Take 1tablet by mouth daily 12/26/2020 at Unknown time tiZANidine (ZANAFLEX) 2 MG tablet Take 2 mg by mouth 2 (two) times a day12/26/2020 at Unknown time vitamin B-12 (CYANOCOBALAMIN) 1000 MCG tablet Take 1,000 mcg by mouth daily12/26/2020 at Unknown timeCephalexin and CaptoprilFamily HistoryProblem Relation Age of Onset Heart disease Mother Heart disease Brother Ezra Hyperthermia Neg HxSocial HistoryTobacco Use Smoking status: Former Smoker Packs/day: 1.50 Years: 23.00 Pack years: 34.50 Types: Cigarettes Quit date: 12/16/1993 Years since quittin.0 Smokeless tobacco: Never UsedSubstance Use Topics Alcohol use: Not Currently Drug use: NeverReview of Systems: As per HPI all other systems are negative.Physical Exam:Temp: [97.8 F-100.2 F] 98.2 FHeart Rate: [87-106] 87Resp: [18-20] 18BP: (106-173)/(58-81) 141/63Appears sick in moderate distress.Heart: appears to be regularLungs: no accessory musclesAbdomen: soft,non distended diffusely tender there is guarding throughout withno rebound at this point of time.Extremities: No edemaLabs, Imaging and other Dagnostics:Diagnostic Tests reviewedImpression and Recommendation:Principal Problem: Mesenteric artery stenosisActive Problems: Epigastric pain PAF (paroxysmal atrial fibrillation) Diabetes CKD (chronic kidney disease), stage III CAD (coronary artery disease) Hypertension Diasto lic CHF Depressed GERD (gastroesophageal reflux disease) Hyperlipidemia Glaucoma Preoperative cardiovascular examinationI explained to patient that she appears to have acute on chronic mesentericischemia.At this point of time I do not think patient has bowel however she mighthave get an functional bowel in near future.I have discussed this with Dr. Erich Barron and explained to him my thoughts.Further discussion and management per him. I will hold the heparin andincreasing her IV fluids at this point of time.Hermelinda Velez MDGaylord Hospital :52 PM Name Value Range Interpretation Code Description Data Haylee rce(s) Supporting Document(s) ID Date Data Source [id number] 12/30/2020 03:44:32 PM EDT [facility] HospitalPATIE NT INFORMATIONPatient MRN Name Date of Age Gend*PT [id number] Abdirahman Yip 1950 70 years F IPPT Location Admission Date/Time Visit ID Attending [id number] 12/26/20 1512 --- Leana Barron MD([id number]) EPI ID CSN Admitting Provider [id number] Leana Barron MD([id number])GASTROENTEROLOGY CONSULTATIONName: Abdirahman Yip Gender: femaleDate of : 1950 Age: 70 yearsDate/Time of Admit: 12/26/2020 3:12 PM Code Status: Full CodePrimary Care Provider / Referring Physician: ROBINSON GOODWIN MDInformant:HISTORYChief ComplaintPatient presents with Direct Admit Patient seen at Dr. Barron's office today with c/o lower quadrant abdominal painthat radiates up under breasts. pt was informed to come to ED for direct admit.REASON FOR CONSULTATION: Further evaluation for the possibility of intestinalischemiaCONSULT REQUESTED BY: Arturo Barron MDHPI: The patient is a 70-year-old female patient of Dr. Barron'raffi who has a pastmedical history significant for CAD status post CABG, HTN, HLD, CKD 3 GERD,diastolic CHF, DM, carotid artery disease s/p left CEA, mesenteric arterystenosis, paroxysmal atrial fibrillation, metabolic syndrome, GA, glaucoma,gastric bypass surgery in 2012.The patient was last admitted to the vascular surgery service in August of thisyear. She initially was set to undergo a mesenteric arterial bypass, Howevershe went to interventional radiology with Dr. Barron and via a left brachialcutdown had an aortogram with celiac artery balloon expanding stent and balloonangioplasty. The patient tolerated the procedure well. She was found to have achronically occluded SMA and uncertain perfusion to the CARIDAD. The patient wastolerating meals without postprandial pain at the time of her discharge. She was sent to the hospital by the vascular surgery service for furtherevaluation of abdominal pain possibly related to ischemia. She reported havingdifficulty with generalized abdominal pain for almost 2 weeks. The pain wasquite intense. Doppler ultrasound unable to show her celiac artery. Severestenosis of the CARIDAD was identified.At the time of my evaluation, she was laying in bed. She had a big area ofecchymosis involving her left periorbital area. On questioning she stated thatthe abdominal pain had been off and on for "quite some time". She reported aweight loss of about 20 to 30 pounds since the beginning of the year. Shefurther stated 40 pounds but then corrected herself. With regards to the timingof the abdominal pain, it was very unclear as to whether the pain ispostprandial most or all the time. I got the impression that she could get theabdominal pain on an empty stomach and it could last for quite a while. Shestates that when she is in the middle of an episode of abdominal pain eatingwould make it worse. She also stated oftentimes the pain would come aftereating a meal.With regards to the location of the pain. She pointed out to the lower abdomenand stated the pain basically involved the lower abdomen. Most of the times thepain started in the right lower quadrant of the abdomen and then moved over tothe left lower quadrant of the abdomen and then it would involve the upperabdomen and radiate to the back. She denied having any attacks of paininvolving the epigastrium. She also pointed to the right upper quadrant of theabdomen and stated that the pain would be located in that area from time totime.She denied having any difficulty with nausea, vomiting, melena or bright redblood per rectum. She stated that her last colonoscopy was roughly 2 years ago.It was performed in [facility].Her medical history is remarkable for a gastric bypass that was performed [id number]. She is not known to have any history of anastomotic ulcer. She has haddifficulty with abdominal adhesions in the past.Most recent blood work from 12/29/2020 reveals a BUN and creatinine of 41 and1.69. Serum calcium level was normal at 8.5; CBC revealed an elevated WBC countof 20.6; the hemoglobin and hematocrit were 10.7 and 33.4 with an MCV of 98.5.The platelet count was normal at 372,000.PAST HISTORYPast Medical History:Diagnosis Date CAD (coronary artery disease) s/p CABG, Followed by Dr Bocanegra Carotid artery disease 12/27/2014 s/p LCEA, Dr Nieves Chronic vascular disorder of intestine CKD (chronic kidney disease), stage III followed by Dr Lira Colon polyp Depressed Diabetes Diastolic CHF GERD (gastroesophageal reflux disease) Glaucoma History of transfusion Hyperlipidemia Hypertension Macular degeneration Mesenteric artery stenosis Metabolic syndrome GA (myocardial infarction) Osteoarthritis PAF (paroxysmal atrial fibrillation) H/O, s/p atrial ablation S/P gastric bypass 07/2012 Dr Olivo Sleep apnea CPAP TIA (transient ischemic attack)Past Surgical History:Procedure Laterality Date ABDOMINAL HERNIA REPAIR N/A 10/07/2019 Procedure: LAPAROSCOPY, EXPLORATORY, WITH EXTENSIVE LYSIS OF ADHESIONS, ANDEVALUATION OF INTERNAL HERNIA; Surgeon: Nghia Butterfield MD; Laterality: N/A; ATRIAL ABLATION SURGERY 2009 CARDIAC CATHETERIZATION 2008,2012 CATARACT EXTRACTION W/ INTRAOCULAR LENS IMPLANT, BILATERAL CHOLECYSTECTOMY COLONOSCOPY CORONARY ARTERY BYPASS GRAFT 1993 ELBOW FRACTURE SURGERY Right EYE SURGERY LASER FOR GLAUCOMA LAPAROSCOPIC INCISIONAL / UMBILICAL / VENTRAL HERNIA REPAIR LUMBAR SPINE SURGERY 2010 PANENDOSCOPY N/A 01/03/2017 Procedure: ENDOSCOPY W ANESTHESIA; Surgeon: Kristie Cisneros MD; Laterality:N/A; CLIVE-EN-Y PROCEDURE 2013 UPPER GASTROINTESTINAL ENDOSCOPY VASCULAR SURGERY Left 12/27/2014 Procedure: EVERSION CAROTID ENDARTERECTOMY LEFT; Surgeon: Collin Nieves MD;Location: [facility]; Service: Vascular; Laterality: Left; WISDOM TOOTH EXTRACTIONFamily HistoryProblem Relation Age of Onset Heart disease Mother Heart disease Brother Ezra Hyperthermia Neg HxSocial HistorySocial History Narrative Not on fileSocial HistorySocioeconomic History Marital status: Single Spouse name: Not on file Number of children: Not on file Years of education: Not on file Highest education level: Not on fileOccupational History Not on fileTobacco Use Smoking status: Former Smoker Packs/day: 1.50 Years: 23.00 Pack years: 34.50 Types: Cigarettes Quit date: 12/16/1993 Years since quittin.0 Smokeless tobacco: Never UsedSubstance and Sexual Activity Alcohol use: Not Currently Drug use: Never Sexual activity: Not on fileOther Topics Concern Not on fileSocial History Narrative Not on fileSocial Determinants of HealthFinancial Resource Strain: Difficulty of Paying Living Expenses:Food Insecurity: Worried About Running Out of Food in the Last Year: Ran Out of Food in the Last Year:Transportation Needs: Lack of Transportation (Medical): Lack of Transportation (Non-Medical):Physical Activity: Days of Exercise per Week: Minutes of Exercise per Session:Stress: Feeling of Stress :Social Connections: Frequency of Communication with Friends and Family: Frequency of Social Gatherings with Friends and Family: Attends [employer] Services: Active Member of Clubs or Organizations: Attends Club or Organization Meetings: Marital Status:Intimate Partner Violence: Fear of Current or Ex-Partner: Emotionally Abused: Physically Abused: Sexually Abused:Review of SystemsConst:No difficulty with fever or chills.Eyes: Large left periorbital ecchymosis from her recent fall.ENMT: No difficulty with hearingCV: No complaints of angina or palpitation.Resp: No chest pain or shortness of breath..GI: As noted above.: Denies genitourinary s ymptoms then noted above.Musculo: Denies musculoskeletal symptoms then noted above.Skin: Denies skin, hair and nail symptoms then noted above.Breast: Denies breast problems then noted above.Neuro: Denies neurologic symptoms then noted above.Psych: No history of TIA or CVA.Endocrine: Denies endocrine symptoms then noted above.Jose Manuel/Lymph: Denies hematologic symptoms then noted above.MEDICATIONS AND ALLERGIESALLERGIES/SENSITIVITIES:AllergiesAllergen Reactions Cephalexin Diarrhea Captopril RashMEDS:No current facility-administered medications on file prior to encounter.Current Outpatient Medications on File Prior to EncounterMedication Sig acetaminophen (TYLENOL) 650 MG CR tablet Take 650 mg by mouth every 8 (eight)hours as needed for pain allopurinol (ZYLOPRIM) 100 MG tablet Take 100 mg by mouth daily Ammonium Lactate 10 % CREA Apply topically daily as needed (for dry skin) aspirin EC 81 MG EC tablet Take 81 mg by mouth 2 (two) times a day atorvastatin (LIPITOR) 10 MG tablet Take 10 mg by mouth nightly brimonidine (ALPHAGAN) 0.2 % ophthalmic solution Administer 1 drop to botheyes 2 (two) times a day Calcium Citrate-Vitamin D 315-250 MG-UNIT TABS Take 1 tablet by mouth 2 (two)times a day clopidogrel (PLAVIX) 75 MG tablet Take 1 tablet (75 mg total) by mouth daily docusate sodium (COLACE) 100 MG capsule Take 200 mg by mouth nightly DULoxetine (CYMBALTA) 60 MG capsule Take 60 mg by mouth nightly esomeprazole (NEXIUM) 40 MG capsule Take 40 mg by mouth 2 (two) times a day ferrous gluconate (FERGON) 324 MG tablet Take 324 mg by mouth daily furosemide (LASIX) 20 MG tablet Take 20 mg by mouth 2 (two) times a day gabapentin (NEURONTIN) 400 MG capsule Take 400 mg by mouth 3 (three) times aday Insulin Aspart (NOVOLOG FLEXPEN) 100 UNIT/ML SOPN Inject under the skin 3times daily sliding scale Insulin Glargine, 1 Unit Dial, (TOUJACOBO SOLOSTAR) 300 UNIT/ML SOPN Inject 30Units under the skin nightly isradipine (DYNACIRC) 2.5 MG capsule Take 2.5 mg by mouth 2 (two) times a day latanoprost (XALATAN) 0.005 % ophthalmic solution Administer 1 drop to botheyes nightly levothyroxine (SYNTHROID, LEVOTHROID) 50 MCG tablet Take 50 mcg by mouth daily memantine (NAMENDA) 10 MG tablet Take 10 mg by mouth 2 (two) times a day metoprolol succinate (TOPROL-XL) 25 MG 24 hr tablet Take 25 mg by mouth daily nitroglycerin (NITROSTAT) 0.[address] 0.4 mg under the tongue every5 (five) minutes as needed for chest pain spironolactone (ALDACTONE) 25 MG tablet Take 25 mg by mouth 2 (two) times aday SUPER B COMPLEX/C PO Take 1 tablet by mouth daily therapeutic multivitamin-minerals (CENTRUM SILVER ADULT 50+) tablet Take 1tablet by mouth daily tiZANidine (ZANAFLEX) 2 MG tablet Take 2 mg by mouth 2 (two) times a day vitamin B-12 (CYANOCOBALAMIN) 1000 MCG tablet Take 1,000 mcg by mouth dailyPhysicalVITAL SIGNS:Blood Pressure: BP: 173/81 Pulse: Heart Rate: 92Temperature: Temp: 97.8 F Respirations: Resp: 18Admission Weight: Weight: 54.4 kg (120 lb) O2 Saturation: SpO2: 96 %Today's Weight: Weight: 56.4 kg (124 lb 4.8 oz)PHYSICAL EXAMINATION:Const: Appeared fatigued and tired.Head/Face: Large ecchymosis involving the left periorbital area.Eyes: Conjunctivae clear. Sclerae clear and anicteric. Large ecchymosisinvolving the left periorbital area from the recent fall.ENMT: .Lips: Appear normal and healthy. Oropharynx: Appears normal.Neck: Normal to inspection. Unremarkable on palpation.Resp: Reasonable air entry bilaterally anterior laterally.CV: Rate is regular by auscultation. Rhythm is regular.Extremities: No clubbing, cyanosis or edema.Abdomen: There was a large midline scar that was well-healed. Another smallscar was noted in the right mid abdomen. There was generalized tenderness ondeep palpation. The tenderness was more appreciated in the right upper quadrantof the abdomen and to some extent in the lower abdomen. Bowel sounds areaudible. No aortic or renal bruit was appreciated. No rebound, guarding orrigidity was appreciated. No significant organomegaly was appreciated. Nomasses were felt. Lymph: No visible cervical lymphadenopathy.Skin: Skin is warm and dry.Neuro: Awake alert and oriented.DiagnosticsResults from last 7 daysLab Units 12/27/2105WBC 10*3/uL 20.6* 11.1* 17.6*HEMOGLOBIN g/dL 10.7* 10.8* 12.3HEMATOCRIT % 33.4* 34.6* 39.1MCV fL 98.5* 99.4* 98.2*PLATELETS 10*3/uL 372 391 455*Results from last 7 daysLab Units 12/27/2105 SODIUM mmol/L 138 139 138POTASSIUM mmol/L 4.5 4.3 4.1CHLORIDE mmol/L 103 106 102CO2 mmol/L 24 24 25ANION GAP mmol/L 11 9 11BUN mg/dL 41* 38* 39*CREATININE mg/dL 1.69* 1.72* 1.81*BUN / CREAT RATIO RATIO 24.3* 22.1* 21.5*GLUCOSE mg/dL 72 129* 165*CALCIUM mg/dL 8.5 8.4 9.1ALBUMIN g/dL -- -- 3.0*GLOBULIN g/dL -- -- 4.4*AGRC RATIO -- -- 0.7ALK PHOS U/L -- -- 116BILIRUBIN, TOTAL mg/dL -- -- 0.3AST U/L -- -- 19ALT U/L -- -- 26GFRAA ml/min/1.73m2 36* 36* 34*GFRNAA ml/min/1.73m2 30* 29* 28*Lab ResultsComponent Value Date NA 138 12/29/2020 K 4.5 12/29/2020 CL 103 12/29/2020 CO2 24 12/29/2020 BUN 41 (H) 12/29/2020 CREATININE 1.69 (H) 12/29/2020 GLU 72 12/29/2020ab ResultsComponent Value Date CREATININE 1.69 (H) 12/29/2020 CREATININE 1.72 (H) 12/27/2020 CREATININE 1.81 (H) 12/26/2020stimated Creatinine Clearance: 21.7 mL/min (A) (based on SCr of 1.69 mg/dL(H)).Lab ResultsComponent Value Date INR 1.03 12/26/2020IAGNOSTIC IMAGING:Exam: CTA Abdomen and Pelvis With ContrastExam date and time: 12/26/2020 11:11 PMIMPRESSION: 1. Compared with the prior exam, there has been interval new placement ofvascular stent material in the proximal celiac artery. The celiac arteryappears patent, with mild (less than 50%) arterial stenosis. The proximal SMAis chronically occluded similar compared with the prior exam. The SMA distal tothis region is patent and possibly reconstituted by blood supply frommesenteric arteries or the right hepatic artery. The right hepatic artery iscontinuous with the SMA. The visualized proximal CARIDAD appears patent. Theremainder of the major arterial branch vessels arising from the abdominal aortaappear patent. Multiple arterial vascular calcifications are seen, asdescribed above. 2. The gallbladder is surgically absent. The CBD is mildly dilated up to 10 mmin diameter which is probably related to post cholecystectomy biliary ectasia,however correlation with the patient's bilirubin level is recommended toexclude the possibility of biliary stenosis/partial biliary obstructionproducing this finding. 3. Multilevel degenerative changes are seen in the lumbar spine and in thevisualized portions of the lower thoracic spine, which are associated withleast mild central spinal stenosis at L2-L3 and L4-L5, along with at leastmoderate central spinal stenosis at L3-L4.IMPRESSION1. Chronic abdominal pain.2. Weight loss of about 20 to 30 pounds since the beginning of the year.3. Celiac artery stenosis status post stenting.4. Chronic proximal mesenteric artery occlusion.5. Significant leukocytosis [WBC count 20,000].6. Diabetes mellitus type 27. Chronic kidney disease stage III8. Coronary artery disease status post myocardial infarctionThe patient is a 70-year-old female with past medical history significant forCAD status post CABG, HTN, HLD, CKD 3 GERD, giorgio stolic CHF, DM, carotid arterydisease s/p left CEA, mesenteric artery stenosis, paroxysmal atrialfibrillation, metabolic syndrome, GA, glaucoma, gastric bypass surgery in 2012.She had an aortogram with celiac artery balloon expanding stent and balloonangioplasty. She was found to have a chronically occluded SMA and uncertainperfusion to the CARIDAD. She was sent to the hospital by the vascular surgery service for furtherevaluation of abdominal pain possibly ischemia. She reported having difficultywith generalized abdominal pain for almost 2 weeks. The pain was quite intense.Doppler ultrasound unable to show her celiac artery. Severe stenosis of the IMAwas identified. Results of the CTA of the abdomen from 12/26/2020 are documentedabove. There is occlusion of the proximal SMA but distal to the chr onicocclusion there is reconstitution of the SMA likely from collaterals.Her narrative is unclear. She stated that oftentimes the pain occurs on anempty stomach. If the pain was already there and then eating a meal would makeit worse. While at other times she stated that the pain was notedpostprandially. She was unable to answer if the pain reliably occurred in apostprandial fashion following every meal or most of the times. She does nothave any difficulty with nausea or vomiting. According to the patient she haslost "20 to 30 pounds" since the beginning of the year. Her last colonoscopywas roughly 2 years ago. It was reportedly negative.Given her history of diabetes mellitus with complications with history ofballoon angioplasty and stenting of the celiac artery and chronic occlusion ofproximal mesenteric artery, the chances of chronic mesenteric ischemia are quitehigh. Chronic mesenteric ischemia is likely the problem we are dealing with.Her narrative is not classic for chronic mesenteric ischemia. I had a detailedconversation with her sister on phone. The sister stated that Abdirahman had beenhaving difficulty with postprandial abdominal pain for quite some time. I askedMary if she was afraid of eating because of the postprandial abdominal pain.She stated "at times".Long-term therapy with proton pump inhibitor also relates to small intestinalbacterial overgrowth with generalized abdominal bloating, abdominal cramping,pain and diarrhea. The possibility of SIBO does remain in the differential.Neuropathic pain on account of radiculopathy from spinal DJD also remains in thedifferential given that the pain in the left lower quadrant of the abdomenradiates to the back.RECOMMENDATIONS1. I would recommend repeating a stat CBC to assess the current status of theleukocytosis.2. Lactic acid level will be checked.3. LDH and CK levels also be checked.4. A contrast-enhanced CT scan of the abdomen has been ordered by the bariatricservice. It will help us better understand the anatomy and also identify anyfindings in the bowel related to ischemia.5. With regards to the possibility of anastomotic ulcer, proceeding with anupper endoscopy for further evaluation is reasonable. It should be noted thather pain mainly involves the lower abdomen and at times the right upper quadrantof the abdomen. She does not voice having any difficulty with epigastric pain.6. Her anemia is macrocytic. Typically anastomotic ulcer with bleeding shouldlead to a microcytic anemia. Given her gastric bypass status, checking [id number], folate and thiamine level would be reasonable.7. CMP, amylase and lipase will be checked.8. I will discontinue the allopurinol for now. Oftentimes abdominal pain anddiarrhea is noted with the allopurinol.Thank you for this consultation.Aakash Freitas MDDate: December 30, 2020Time: 12:02 PMAddendum: CT films were reviewed. No free air. The small bowel appears diffuselydilated and edematous likely on account of ongoing vascular insufficiency.WBC count further elevated to 32.9k. Lactate mildly increased to 2.7; . LDHincreased. CPK is normal. BUN and creatinine have increased to 57 and 2.72I remained concerned about ongoing ischemia.Case discussed with Dr. Velez and vascular PA and bedside nurse.Will start Zosyn.Increase IV fluids to 150 cc/hr. Correct volume depletion.Surgical intervention appears imminent. Name Value Range Interpretation Code Description Data Haylee rce(s) Supporting Document(s) ID Date Data Source [id number] 12/30/2020 03:13:09 PM EDT [address] [id number] Name: ABDIRAHMAN YIPDOB: 1950ex: FOrdering Provider: ZAI VARGASAuthoivelisse Prov: ZIA MADDIReferralexx Provider: Procedure Performed: / CT ABDOMEN PELVIS W CONTRASTExam Date: 12/30/2020 14:50MRN: [id number] Number: [id number] Class: InpatientAccount #: [id number] for Exam: Abdominal pain, acute, nonlocalizedTechnique: Helical axial images were obtained during the administration 70ml of Isovue 370 IV contrast.One or more of the following dose reduction techniqueswere utilized; automated exposure control, dose modulation, technique adjustment based on patient size and iterativereconstruction algorithms. Multiplanar reconstructions were created and reviewed.Comparison: 12/26/2020 12/30/2020Findings:Lung bases:Minimal subsegmental atelectasis.Liver:UnremarkableGallbladder and biliary tree:Prior cholecystectomy.Pancreas:UnremarkableSpleen:UnremarkableAdrenal glands:UnremarkableKidneys and ureters:UnremarkableBowel:Prior gastric bypass surgery. Diffusely dilated small bowel with fold thickening. No transition point appreciated. Small bowel dilated up to approximately 0.2 cm. Large bowel is not dilated. Scattered colonic diverticula noted.Appendix:No findings to suggest appendicitis.Bladder:UnremarkableReproductive organs:UnremarkableLymph nodes:UnremarkableVessels:Stent within the right celiac artery which appears patent. Occluded proximal superior mesenteric artery similar to the recent CT which opacifies distally presumably through collaterals. Atherosclerotic calcification of the aorta without aneurysmal dilatation. The CARIDAD appears patent.Osseous structures:UnremarkablePeritoneum:UnremarkableSoft tissues:UnremarkableImpression:Diffusely dilated small bowel fold thickening. The setting of occluded proximal superior mesenteric artery considerations include small bowel ischemia.Findings communicated utilizing critical results protocol.Report electronically signed by: VALENTÍN GUARDADO On 12/30/2020 3:13 PMWorkstation ID: [id number] Name Value Range Interpretation Code Description Data Haylee rce(s) Supporting Document(s) ID Date Data Source [id number] 12/30/2020 06:04:46 PM EDT [facility] Name Value Range Interpretation Code Description Data Haylee rce(s) Supporting Document(s) COLOR [facility] APPEARANCE [facility] SPEC GRAV URINE 1.016 (1.003-1.030) [facility] PH URINE 5.5 (5.0-7.5) [facility] LEUK ESTERASE (NEG) [facility] NITRITE URINE (NEG) [facility] PROTEIN URINE (NEG) [facility] GLUCOSE URINE (NEG) [facility] KETONE URINE (NEG) [facility] UROBILINOGEN 0.2 mg/dL (0-1.0) [facility] BILIRUBIN URINE (NEG) [facility] BLOOD/HGB URINE (NEG) [facility] ID Date Data Source [id number] 12/30/2020 03:01:13 PM EDT [facility] Name Value Range Interpretation Code Description Data Haylee rce(s) Supporting Document(s) LACTIC ACID 2.7 mmol/L (0.4-2.0) H [facility] ID Date Data Source [id number] 12/30/2020 01:28:03 PM EDT [facility] Name Value Range Interpretation Code Description Data Haylee rce(s) Supporting Document(s) POC NOVA GLU 203 mg/dL (70-99) H [facility] PERFORMED BY [facility]INICAL STAFF ID Date Data Source [id number] 12/30/2020 11:25:15 AM EDT [address] [id number] Name: ABDIRAHMAN YIPDOB: 1950ex: FOrdering Provider: SURI French Prov: SURI Cai Provider: Procedure Performed: / XR ABDOMEN PORTABLEExam Date: 12/29/2020 19:32MRN: [id number] Number: [id number] Class: InpatientAccount #: [id number] for Exam: diarrhea, abd pain, hx gastric bypass, r/o SBOTechnique: AP portable view obtained.Comparison: NoneFindings: There are multiple segments of mildly dilated small bowel. Several segments of air-filled large bowel are evident not dilated. Does appear to be moderate fold thickening involving small bowel.IMPRESSION: Mildly dilated small bowel fold thickening compatible with ileus. Cannot exclude obstruction..Report electronically signed by: VALENTÍN GUARDADO On 12/30/2020 11:25 AMWorkstation ID: [id number] - [id number] Name Value Range Interpretation Code Description Data Haylee rce(s) Supporting Document(s) ID Date Data Source [id number] 01/01/2021 08:21:28 AM EDT [facility] Name Value Range Interpretation Code Description Data Haylee rce(s) Supporting Document(s) WBC 32.9 10*3/uL (4.1-11.0) H [facility] ADJUSTED FOR NUCLEATED RBC'SCorrected on 12/30 AT 1413: Previously reported as 33.2 ALERTED CRITICAL RESULT TO CAITY [id number] RBC 3.71 10*6/uL (4.00-5.40) L [facility] HGB 11.6 g/dL (12.0-16.0) L [facility] HCT 36.6 % (36.0-47.0) [facility] MCV 98.8 fL (80.0-95.0) H [facility] MCH 31.2 pg (27.0-32.0) [facility] MCHC 31.6 g/dL (32.0-36.0) L [facility] RDW 16.7 % (10.5-14.5) H [facility] PLT 415 10*3/uL (150-450) [facility] MPV 10.6 fL (7.1-10.7) [facility] NEUT % 80.0 % (35.0-75.0) H [facility] BAND % 1.0 % (0.0-11.0) [facility] LYMPH % 8.0 % (16.0-52.0) L [facility] MONO % 11.0 % (0.0-8.0) H [facility] NRBC 1.0 /100 WBC (0.0) [facility] NEUT # 26.3 10*3/uL (1.8-7.7) H [facility] BAND # 0.3 10*3/uL [facility] LYMPH # 2.6 10*3/uL (1.2-4.8) [facility] MONO # 3.6 10*3/uL (0.0-0.8) H [facility] ANISO 1+ [facility] POLY 1+ [facility] DIFF COMMENT [facility] DIFF COMMENT [facility] SUPERVISORY REVIEW: DIFFERENTIAL CELL CO UNT CONFIRMED.[id number] ID Date Data Source [id number] 12/30/2020 02:14:12 PM EDT [facility] Name Value Range Interpretation Code Description Data Haylee rce(s) Supporting Document(s) LDH 307 U/L (84-246) H [facility] ID Date Data Source [id number] 12/30/2020 02:14:12 PM EDT [facility] Name Value Range Interpretation Code Description Data Haylee rce(s) Supporting Document(s) CK 72 U/L (26-192) [facility] ID Date Data Source [id number] 12/30/2020 02:14:12 PM EDT [facility] Name Value Range Interpretation Code Description Data Haylee rce(s) Supporting Document(s) TOTAL PROTEIN 6.9 g/dL (6.4-8.2) [facility] ALBUMIN 2.2 g/dL (3.2-4.5) L [facility] GLOBULIN 4.7 g/dL (2.7-4.3) H [facility] ALB/GLOB RATIO 0.5 RATIO [facility] BILIRUBIN,TOTAL 0.4 mg/dL (0.0-1.0) [facility] PLEASE NOTE:Total bilirubin results may be falselyelevated in patients taking Eltrombopag. BILIRUBIN,CONJUGATED 0.1 mg/dL (0.0-0.3) [facility] BILIRUBIN,UNCONJ. 0.3 mg/dL (0.0-0.7) [facility] ALKALINE PHOSPHATASE 120 U/L (45-117) [facility] AST (SGOT) 77 U/L (11-39) H [facility] ALT (SGPT) 41 U/L (12-78) [facility] ID Date Data Source [id number] 12/30/2020 02:11:40 PM EDT [facility] Name Value Range Interpretation Code Description Data Haylee rce(s) Supporting Document(s) LIPASE 20 U/L (65-230) L [facility] ID Date Data Source [id number] 12/30/2020 02:11:40 PM EDT [facility] Name Value Range Interpretation Code Description Data Haylee rce(s) Supporting Document(s) AMYLASE 23 U/L (25-115) L [facility] ID Date Data Source [id number] 12/30/2020 02:11:40 PM EDT [facility] Name Value Range Interpretation Code Description Data Haylee rce(s) Supporting Document(s) SODIUM 134 mmol/L (136-145) L [facility] POTASSIUM 4.7 mmol/L (3.6-5.2) [facility] CHLORIDE 101 mmol/L (100-108) [facility] CO2 19 mmol/L (22-31) L [facility] ANION GAP 14 mmol/L (7-16) [facility] UREA NITROGEN 57 mg/dL (7-24) H [facility] CREATININE 2.72 mg/dL (0.60-1.00) H [facility] BUN/CREAT RATIO 21.0 RATIO (10.0-20.0) H [facility] GLUCOSE 120 mg/dL (70-99) H [facility] CALCIUM 8.8 mg/dL (8.4-10.2) [facility] GFR 17 ml/min/1.73m2 (>59) L [facility] GFR ( AMER) 21 ml/min/1.73m2 (>59) L [facility] GFR INTERPRETATION [facility] --NORMAL KIDNEY FUNCTION OR MILD DISEASE - GFR >OR= 60CHRONIC KIDNEY DISEASE - GFR 15 - 59RENAL FAILURE - GFR <15 Est. GFR calculation based on the MDRDstudy equation, which assumes a steadystate for creatinine. Est. GFR should notbe used for medication dosing. ID Date Data Source [id number] 12/30/2020 01:43:38 PM EDT [facility] Name Value Range Interpretation Code Description Data Haylee rce(s) Supporting Document(s) APTT 61.3 s (22.0-34.3) H [facility] ID Date Data Source [id number] 12/30/2020 10:39:14 AM EDT [facility] INFORMATIONPatient MRN Name Date of Age Gend*PT [id number] Abdirahman Yip 1950 70 years F IPPT Location Admission Date/Time Visit ID Attending [id number] 12/26/20 1512 --- Leana Barron MD([id number]) EPI ID CSN Admitting Provider [id number] Leana Barron MD([id number]) Attestation signed by Zia Vargas MD at 12/30/2020 10:39 AMI saw and evaluated the patient and reviewed MATHEW Cohen's note. I agree withthe history, physical and medical decision making with the following additions,exceptions, and/or observations:Patient is a 70-year old female who is s/p RNY gastric bypass in 2012. Sheunderwent exploratory laparoscopy with extensive lysis of adhesion in 09/2019for generalized abdominal pain. There was no other intra-abdominal pathologynoted and internal hernia spaces were closed. She reports no significantimprovement in her symptoms after that surgery. Earlier this year she underwentceliac artery stenting with Dr Barron for SMA occlusion. She is now admitted withgeneralized abdominal pain. I have reviewed the CTA Abd/pel images and cannotappreciate any findings of internal hernia or bowel obstruction. The patientreports chronic constipation but otherwise she is having bowel function. Shedenies any vomiting, diarrhea or melena. From a bariatric surgery standpoint, Sharath not see an indication for acute surgical intervention at this time. We willorder a repeat CT Abd/pel with oral contrast to better evaluate the bowel. Barbi also benefit from GI evaluation for endoscopy to rule out marginalulceration contributing to her symptoms.Signature: Zia Vargas MDDate: December 30, 2020Time: 10:23 AM --Surgical Services Consultation NoteAbdirahman Yip 1950 70 years12/29/2020 for Consult: abdominal pain and history of gastric bypass.Impression and Recommendations:Principal Problem: Mesenteric artery stenosisActive Problems: Epigastric pain PAF (paroxysmal atrial fi brillation) Diabetes CKD (chronic kidney disease), stage III CAD (coronary artery disease) Hypertension Diastolic CHF Depressed GERD (gastroesophageal reflux disease) Hyperlipidemia Glaucoma Preoperative cardiovascular examination 1. Patient seen and examined at bedside. Chart, labs and imaging reviewed.Patient had Clive-en-Y in 2012. She had exploratory laparoscopy with lysis ofadhesion in 09/2019 when no perforated marginal ulcer, obvious obstruction, orinternal hernia revealed. Instead, extensive adhesion found. Patient hadmultiple bowel surgeries, denies dysphagia, endorses some chronic constipationissue. WBC elevated. Most recent temp 100.6. No acute abdomen. No free airidentified or obstruction reported from CTA. CTA showed chronic occlusion atproximal SMA. Adhesion/obstruction and/or ischemia appears more likely. EGD mayhelp to rule in/out marginal ulcer. Recommend GI consult.Thank you for this consultation.Informant: Abdirahman Yip, Reliable Yes; [facility] Abdirahman Yip is a 70 years old White or female with pastmedical history significant for Clive en Y in 2012 and exploratory laparoscopy in09/2019. Medical history also significant for CAD status post CABG, HTN, HLD, CKD3 GERD, diastolic CHF, DM, carotid artery disease s/p left CEA, chronicallyoccluded SMA, uncertain perfusion to the CARIDAD, paroxysmal atrial fibrillation,metabolic syndrome, and GA. Patient states she has chronic left side and lowerabdominal pain. The pain has been going on for at least months. The recentaggravation prompted her to come to ED. She denies N/V, endorses some chronicconstipation. Had a loose bowel movement this morning. Denies hematochezia ormelena. Patient states she takes PPI crew person. Denies chronic use of NSAIDs,quit smoking in 1993, denies alcohol or drug abuse. Not on anticoagulation homemed.PMH:Past Medical History:Diagnosis Date CAD (coronary artery disease) s/p CABG, Followed by Dr Bocanegra Carotid artery disease 12/27/2014 s/p LCEA, Dr Nieves Chronic vascular disorder of intestine CKD (chronic kidney disease), stage III followed by Dr Lira Colon polyp Depressed Diabetes Diastolic CHF GERD (gastroesophageal reflux disease) Glaucoma History of transfusion Hyperlipidemia Hypertension Macular degeneration Mesenteric artery stenosis Metabolic syndrome GA (myocardial infarction) Osteoarthritis PAF (paroxysmal atrial fibrillation) H/O, s/p atrial ablation S/P gastric bypass 07/2012 Dr Olivo Sleep apnea CPAP TIA (transient ischemic attack)PSH:Past Surgical History:Procedure Laterality Date ABDOMINAL HERNIA REPAIR N/A 10/07/2019 Procedure: LAPAROSCOPY, EXPLORATORY, WITH EXTENSIVE LYSIS OF ADHESIONS, ANDEVALUATION OF INTERNAL HERNIA; Surgeon: gNhia Butterfield MD; Laterality: N/A; ATRIAL ABLATION SURGERY 2009 CARDIAC CATHETERIZATION 2008,2012 CATARACT EXTRACTION W/ INTRAOCULAR LENS IMPLANT, BILATERAL CHOLECYSTECTOMY COLONOSCOPY CORONARY ARTERY BYPASS GRAFT 1993 ELBOW FRACTURE SURGERY Right EYE SURGERY LASER FOR GLAUCOMA LAPAROSCOPIC INCISIONAL / UMBILICAL / VENTRAL HERNIA REPAIR LUMBAR SPINE SURGERY 2010 PANENDOSCOPY N/A 01/03/2017 Procedure: ENDOSCOPY W ANESTHESIA; Surgeon: Kristie Cisneros MD; Laterality:N/A; CLIVE-EN-Y PROCEDURE 2012 UPPER GASTROINTESTINAL ENDOSCOPY VASCULAR SURGERY Left 12/27/2014 Procedure: EVERSION CAROTID ENDARTERECTOMY LEFT; Surgeon: Collin Nieves MD;Location: [facility]; Service: Vascular; Laterality: Left; WISDOM TOOTH EXTRACTIONMEDICATIONS:Medications Prior to AdmissionMedication Sig Dispense Refill Last Dose acetaminophen (TYLENOL) 650 MG CR tablet Take 650 mg by mouth every 8 (eight)hours as needed for pain 12/26/2020 at Unknown time allopurinol (ZYLOPRIM) 100 MG tablet Take 100 mg by mouth daily 12/26/2020 atUnknown time Ammonium Lactate 10 % CREA Apply topically daily as needed (for dry skin)Past Month at Unknown time aspirin EC 81 MG EC tablet Take 81 mg by mouth 2 (two) times a day 12/26/2020t Unknown time atorvastatin (LIPITOR) 10 MG tablet Take 10 mg by mouth nightly 12/25/2020 atUnknown time brimonidine (ALPHAGAN) 0.2 % ophthalmic solution Administer 1 drop to botheyes 2 (two) times a day 12/26/2020 at Unknown time Calcium Citrate-Vitamin D 315-250 MG-UNIT TABS Take 1 tablet by mouth 2 (two)times a day 12/26/2020 at Unknown time clopidogrel (PLAVIX) 75 MG tablet Take 1 tablet (75 mg total) by mouth daily30 tablet 11 12/26/2020 at Unknown time docusate sodium (COLACE) 100 MG capsule Take 200 mg by mouth nightly12/25/2020 at Unknown time DULoxetine (CYMBALTA) 60 MG capsule Take 60 mg by mouth nightly 12/25/2020 atUnknown time esomeprazole (NEXIUM) 40 MG capsule Take 40 mg by mouth 2 (two) times a day12/26/2020 at Unknown time ferrous gluconate (FERGON) 324 MG tablet Take 324 mg by mouth daily 12/26/2020t Unknown time furosemide (LASIX) 20 MG tablet Take 20 mg by mouth 2 (two) times a day12/26/2020 at Unknown time gabapentin (NEURONTIN) 400 MG capsule Take 400 mg by mouth 3 (three) times aday 12/26/2020 at Unknown time Insulin Aspart (NOVOLOG FLEXPEN) 100 UNIT/ML SOPN Inject under the skin 3times daily sliding scale Past Week at Unknown time Insulin Glargine, 1 Unit Dial, (TOUJACOBO SOLOSTAR) 300 UNIT/ML SOPN Inject 30Units under the skin nightly 12/25/2020 at Unknown time isradipine (DYNACIRC) 2.5 MG capsule Take 2.5 mg by mouth 2 (two) times a day12/26/2020 at Unknown time latanoprost (XALATAN) 0.005 % ophthalmic solution Administer 1 drop to botheyes nightly 12/25/2020 at Unknown time levothyroxine (SYNTHROID, LEVOTHROID) 50 MCG tablet Take 50 mcg by mouth daily12/26/2020 at Unknown time memantine (NAMENDA) 10 MG tablet Take 10 mg by mouth 2 (two) times a day12/26/2020 at Unknown time metoprolol succinate (TOPROL-XL) 25 MG 24 hr tablet Take 25 mg by mouth daily12/26/2020 at Unknown time nitroglycerin (NITROSTAT) 0.[address] 0.4 mg under the tongue every5 (five) minutes as needed for chest pain Unknown at Unknown time spironolactone (ALDACTONE) 25 MG tablet Take 25 mg by mouth 2 (two) times aday 12/26/2020 at Unknown time SUPER B COMPLEX/C PO Take 1 tablet by mouth daily 12/26/2020 at Unknown time therapeutic multivitamin-minerals (CENTRUM SILVER ADULT 50+) tablet Take 1tablet by mouth daily 12/26/2020 at Unknown time tiZANidine (ZANAFLEX) 2 MG tablet Take 2 mg by mouth 2 (two) times a day12/26/2020 at Unknown time vitamin B-12 (CYANOCOBALAMIN) 1000 MCG tablet Take 1,000 mcg by mouth daily12/26/2020 at Unknown timeALLERGY:AllergiesAllergen Reactions Cephalexin Diarrhea Captopril RashFH:Family HistoryProblem Relation Age of Onset Heart disease Mother Heart disease Brother Maljessica Hyperthermia Neg HxSH:Social HistoryTobacco Use Smoking status: Former Smoker Packs/day: 1.50 Years: 23.00 Pack years: 34.50 Types: Cigarettes Quit date: 12/16/1993 Years since quittin.0 Smokeless tobacco: Never UsedSubstance Use Topics Alcohol use: Not Currently Drug use: NeverROS:Gastrointestinal: see HPI.Physical Exam:Temp: [97.9 F-100.6 F] 100.6 FHeart Rate: [70-100] 97Resp: [16-20] 20BP: (121-235)/(58-98) 136/61Abdomen: Soft, non-distended. Left and lower abdomen tenderness. No guarding orrebound tenderness.Labs, Imaging and other Diagnostics:BMP:Lab ResultsComponent Value Date NA 138 12/29/2020 K 4.5 12/29/2020 CL 103 12/29/2020 CO2 24 12/29/2020 ANIONGAP 11 12/29/2020 CALCIUM 8.5 12/29/2020 GLU 72 12/29/2020 BUN 41 (H) 12/29/2020 CREATININE 1.69 (H) 12/29/2020 GFRAA 36 (L) 12/29/2020 GFRNONAA 30 (L) 12/29/2020BC without Diff:Lab ResultsComponent Value Date WBC 20.6 (H) 12/29/2020 RBC 3.39 (L) 12/29/2020 HGB 10.7 (L) 12/29/2020 HCT 33.4 (L) 12/29/2020 MCV 98.5 (H) 12/29/2020 MCH 31.6 12/29/2020 MCHC 32.1 12/29/2020 RDW 16.6 (H) 12/29/2020 PLT 372 12/29/2020 MPV 9.3 12/29/2020abs from todayEcho Transthoracic (TTE)Final ResultNM cardiac gated SPECT imaging with EF and WMFinal ResultX-ray chest two viewsFinal ResultCT angiogram abdomen pelvisFinal ResultIMPRESSION:1. Compared with the prior exam, there has been interval new p lacement ofvascular stent material in the proximal celiac artery. The celiac arteryappears patent, with mild (less than 50%) arterial stenosis. The proximal SMAis chronically occluded similar compared with the prior exam. The SMA distal tothis region is patent and possibly reconstituted by blood supply frommesenteric arteries or the right hepatic artery. The right hepatic artery iscontinuous with the SMA. The visualized proximal CARIDAD appears patent. Theremainder of the major arterial branch vessels arising from the abdominal aortaappear patent. Multiple arterial vascular calcifications are seen, asde scribed above.2. The gallbladder is surgically absent. The CBD is mildly dilated up to 10 mmin diameter which is probably related to post cholecystectomy biliary ectasia,however correlation with the patient's bilirubin level is recommended toexclude the possibility of biliary stenosis/partial biliary obstructionproducing this finding.3. Multilevel degenerative changes are seen in the lumbar spine and in thevisualized portions of the lower thoracic spine, which are associated withleast mild central spinal stenosis at L2-L3 and L4-L5, along with at leastmoderate central spinal stenosis at L3-L4.Other findings as above.Report electronically signed by: TILA ALVARADO MD on 12/27/2020 01:28:06CT orbit without IV contrastFinal ResultIMPRESSION:No acute fracture or dislocation.Report electronically signed by: SHARDA CASAREZ MD on 12/27/2020 00:10:59CT head without contrastFinal ResultIMPRESSION:1. No acute intracranial abnormality.2. Chronic parenchymal changes on a background of age-related atrophy is mostcompatible with microangiopathic disease .Report electronically signed by: SHARDA CASAREZ MD on 12/27/2020 00:10:40Signature: Gonzalo Cohen 111:35 AM Name Value Range Interpretation Code Description Data Haylee rce(s) Supporting Document(s) ID Date Data Source [id number] 12/30/2020 08:13:54 AM EDT [facility] Name Value Range Interpretation Code Description Data Haylee rce(s) Supporting Document(s) POC NOVA GLU 95 mg/dL (70-99) [facility] [place] [facility]FOR[facility] BY [facility] ID Date Data Source [id number] 01/04/2021 12:44:46 PM EDT Lab [facility] [address] [id number]# Surgical Pathology ReportPatient Name: ABDIRAHMAN YIP: 1950ccession #:[id number](s) ReceivedA: Portion of the small bowel 120 cmClinical Diagnosis and HistoryMesenteric ischemia DIAGNOSISPORTION OF SMALL BOWEL - 120 CM, RESECTION: BENIGN SMALL INTESTINE WITH AREAS OF INFARCTED MUCOSA/ACUTE ISCHEMIC CHANGE. THE PROXIMAL AND DISTAL SURGICAL MARGINS SHOW NO SIGNIFICANT PATHOLOGIC FINDINGS. BENIGN LYMPH NODES (4).Note: One of the lymph nodes is enlarged, but shows intact - usualarchitecture. Immunostains on A6 show a benign, reactive mix of CD20 positive B-cell folliclesand CD3/CD5 parafollicular T-cells. Germinal centers are BCL-2 negative. [id number] follicles and CD10 and cyclin D1 are negative. The immunostain results arecompatible with a benign lymph node. Gross DescriptionReceived in formalin labeled "portion of the small bowel (120 cm)" is a112.1 cm segment of unoriented bowel stapled closed at both ends. Theserosa is herrera to red-purple and dull with abundant adherent yellowlobulated adipose tissue. The specimen is opened along the antimesentericborder to show a herrera to red-purple, finely granular, dull mucosa withextremely flattened folds. The luminal circumference averages 7.5 cm witha wall thickness averaging 0.2 cm. There are no discrete perforations ormasses identified. Sectioning through the adipose tissue showsunremarkable vasculature surrounded by yellow lobulated adipose tissue andmultiple herrera-pink to red-purple lymph nodes measuring up to 2.0 cm. [employer] sections are submitted as labeled:A1. Differentially inked resection margins perpendicularA2-A4. Sections of mucosaA5. Mesenteric adipose tissueA6. Hotel [employer]ust[employer]ian sections of one lymph nodeA7. Three lymph nodessmmlmr/jjf Reported: 01/04/2021 12:43Electronically Signed Out By Florida Oneil MD [facility] [place] [id number] component performed at [facility], Histopathology, [address] [place] [address], [id number].Reported at [facility], [address] [place] [address], [id number]. This report may includeimmunohistochemical or in-situ hybridization results. Testing wasdeveloped and the performance characteristics determined by [facility] [employer] [facility] as required by CLIA '88. The FDA hasdetermined that approval for specific use is not necessary for clinicaluse. The quality of Hematoxylin and Eosin stains and as applicable, forall immunohistochemical and/or special stains, including positive andnegative controls, were reviewed and considered appropriate.ICD codes K55.059CPT codesA: 95866K, 03216v, 15645(6) Name Value Range Interpretation Code Description Data Haylee rce(s) Supporting Document(s) ID Date Data Source [id number] 12/30/2020 05:48:20 AM EDT [facility] Name Value Range Interpretation Code Description Data Haylee e(s) Supporting Document(s) POC NOVA GLU 104 mg/dL (70-99) H Lab [facility] PERFORMED BY [facility] ID Date Data Source [id number] 12/29/2020 09:28:17 PM EDT [facility] NT INFORMATIONPatient MRN Name Date of Age Gend*PT [id number] Abdirahman Yip 1950 70 years F IPPT Location Admission Date/Time Visit ID Attending [id number] 12/26/20 1512 --- Leana Barron MD([id number]) EPI ID CSN Admitting Provider [id number] Leana Barron MD([id number]) H&P reviewed. The patient was examined and there are no changes to the H&P.Risks and benefits of procedures explained and accepted.Procdure cancelled needs further workupNote Jaelyn Nieves MD9:27 PM Name Value Range Interpretation Code Description Data Haylee rce(s) Supporting Document(s) ID Date Data Source [id number] 12/29/2020 09:55:39 PM EDT [facility] Name Value Range Interpretation Code Description Data Haylee rce(s) Supporting Document(s) APTT 49.1 s (22.0-34.3) H [facility] ID Date Data Source [id number] 12/29/2020 05:31:36 PM EDT [facility] Name Value Range Interpretation Code Description Data Haylee rce(s) Supporting Document(s) POC NOVA GLU 299 mg/dL (70-99) H [facility] [place] [facility] ID Date Data Source [id number] 12/29/2020 10:41:25 AM EDT [facility] Name Value Range Interpretation Code Description Data Haylee rce(s) Supporting Document(s) POC NOVA GLU 143 mg/dL (70-99) H [facility] [place] [facility] ID Date Data Source [id number] 12/29/2020 09:42:51 AM EDT [facility] INFORMATIONPatient MRN Name Date of Age Gend*PT [id number] Abdirahman Yip 1950 70 years F IPPT Location Admission Date/Time Visit ID Attending [id number] 12/26/20 1512 --- Leana Barron MD([id number]) EPI ID CSN Admitting Provider [id number] Leana Barron MD([id number])I was called by Dr. Nieves to evaluate this patient for chronic abdominal pain.Patient has has a history of gastric bypass.patient had a question of mesentericischemia. Currently patient has an open celiac and CARIDAD.Explained to Dr. Nieves that patient had a gastric bypass in the past andconsidering that patient should be evaluated by a bariatric surgeon to assessfor internal hernia/anastomotic ulcer causing the discomfort. Name Value Range Interpretation Code Description Data Haylee rce(s) Supporting Document(s) ID Date Data Source [id number] 12/29/2020 08:17:24 AM EDT [facility] NT INFORMATIONPatient MRN Name Date of Age Gend*PT [id number] Abdirahman Ypi 1950 70 years F IPPT Location Admission Date/Time Visit ID Attending [id number] 12/26/20 1512 --- Leana Barron MD([id number]) EPI ID CSN Admitting Provider [id number] Leana Barron MD([id number])Name: Abdirahman YipMRN:[id number]: [id number]: 12/29/2020Time: 8:02 AMReason for Consultation:Referring Physician:SUBJECTIVE: Pt seen and examined. Alert and awake in NAD. Atrial response onmonitor. Notes reviewed in EPIC. MAR reviewed on 12/29/2020 at 8:02 AM.70-year-old female past medical history significant for history of CAD s/p CABGin 1993, history of hypertension, hyperlipidemia, paroxysmal atrial fibrillationnot on anticoagulation at this point, chronic kidney insufficiency, peripheralvascular disease including mesenteric ischemia. Currently she is admitted withhistory of abdominal pain and noted to have an mesenteric ischemia she isscheduled to have a surgical revascularization. Otherwise she is physicallydoing okay with the limited activity she denies any chest pain or shortness ofbreath. She had a transthoracic echocardiogram normal LV systolic function.She had a pharmacological nuclear stress test yesterday it is essentiallyunremarkable no evidence of any reversible or fixed perfusion defect.Cardiology consultation requested as a part of a preoperative risk assessment.PMH:Past Medical History:Diagnosis Date CAD (coronary artery disease) s/p CABG, Followed by Dr Bocanegra Carotid artery disease 12/27/2014 s/p LCEA, Dr Nieves Chronic vascular disorder of intestine CKD (chronic kidney disease), stage III followed by Dr Lira Colon polyp Depressed Diabetes Diastolic CHF GERD (gastroesophageal reflux disease) Glaucoma History of transfusion Hyperlipidemia Hypertension Macular degeneration Mesenteric artery stenosis Metabolic syndrome GA (myocardial infarction) Osteoarthritis PAF (paroxysmal atrial fibrillation) H/O, s/p atrial ablation S/P gastric bypass 07/2012 Dr Olivo Sleep apnea CPAP TIA (transient ischemic attack)Fam:Family HistoryProblem Relation Age of Onset Heart disease Mother Heart disease Brother Ezra Hyperthermia Neg HxSOC:Social HistorySocioeconomic History Marital status: Single Spouse name: Not on file Number of children: Not on file Years of education: Not on file Highest education level: Not on fileOccupational History Not on fileTobacco Use Smoking status: Former Smoker Packs/day: 1.50 Years: 23.00 Pack years: 34.50 Types: Cigarettes Quit date: 12/16/1993 Years since quittin.0 Smokeless tobacco: Never UsedSubstance and Sexual Activity Alcohol use: Not Currently Drug use: Never Sexual activity: Not on fileOther Topics Concern Not on fileSocial History Narrative Not on fileSocial Determinants of HealthFinancial Resource Strain: Difficulty of Paying Living Expenses:Food Insecurity: Worried About Running Out of Food in the Last Year: Ran Out of Food in the Last Year:Transportation Needs: Lack of Transportation (Medical): Lack of Transportation (Non-Medical):Physical Activity: Days of Exercise per Week: Minutes of Exercise per Session:Stress: Feeling of Stress :Social Connections: Frequency of Communication with Friends and Family: Frequency of Social Gatherings with Friends and Family: Attends [employer] Services: Active Member of Clubs or Organizations: Attends Club or Organization Meetings: Marital Status:Intimate Partner Violence: Fear of Current or Ex-Partner: Emotionally Abused: Physically Abused: Sexually Abused:MED:@CMEDED@ allopurinol 100 mg Oral Daily amLODIPine 10 mg Oral Daily aspirin EC 81 mg Oral BID atorvastatin 10 mg Oral Nightly brimonidine 1 drop Both Eyes Daily ceFAZolin (ANCEF) IV 2 g Intravenous Collection Systems Consultant to OR cloNIDine 0.2 mg Oral Once clopidogrel 75 mg Oral Daily vitamin B-12 2,000 mcg Oral Daily DULoxetine 60 mg Oral Nightly ferrous gluconate 324 mg Oral Daily furosemide 20 mg Oral Twice Daily for Loop Diuretics gabapentin 400 mg Oral TID insulin glargine 8 Units Subcutaneous Nightly insulin lispro 1-8 Units Subcutaneous With meals sliding scale latanoprost 1 drop Both Eyes Nightly levothyroxine 50 mcg Oral Daily memantine 10 mg Oral BID metoprolol succinate 25 mg Oral Daily normal saline flush 3 mL Intravenous Q8H [facility] pantoprazole 40 mg Oral Daily senna-docusate 2 tablet Oral Nightly spironolactone 25 mg Oral BID sucralfate 1 g Oral Q6H [facility] therapeutic multivitamin-minerals 1 tablet Oral Daily tiZANidine 2 mg Oral BIDALL:AllergiesAllergen Reactions Cephalexin Diarrhea Captopril RashLabs/Diagnostic Tests: BMP:Lab ResultsComponent Value Date NA 138 12/29/2020 K 4.5 12/29/2020 CL 103 12/29/2020 CO2 24 12/29/2020 ANIONGAP 11 12/29/2020 CALCIUM 8.5 12/29/2020 GLU 72 12/29/2020 BUN 41 (H) 12/29/2020 CREATININE 1.69 (H) 12/29/2020 GFRAA 36 (L) 12/29/2020 GFRNONAA 30 (L) 12/29/2020ardiac:Lab ResultsComponent Value Date PROBNP 853 (H) 12/26/2020BC with Diff:Lab ResultsComponent Value Date WBC 20.6 (H) 12/29/2020 RBC 3.39 (L) 12/29/2020 HGB 10.7 (L) 12/29/2020 HCT 33.4 (L) 12/29/2020 MCV 98.5 (H) 12/29/2020 MCH 31.6 12/29/2020 MCHC 32.1 12/29/2020 RDW 16.6 (H) 12/29/2020 PLT 372 12/29/2020 MPV 9.3 12/29/2020 LYMPHOPCT 12.7 (L) 10/11/2019 MONOPCT 5.2 10/11/2019 EOSPCT 3.0 10/11/2019 BASOPCT 0.3 10/11/2019 NEUTROABS 10.7 (H) 10/11/2019 MONOABS 0.7 10/11/2019 BASOSABS 0.0 10/11/2019Coags:Lab ResultsComponent Value Date PROTIME 10.8 12/26/2020 INR 1.03 12/26/2020 APTT 56.3 (H) 12/29/2020Hyperlipidemia:Lab ResultsComponent Value Date CHOL 124 12/16/2014 TRIG 168 12/16/2014 HDL 45 12/16/2014 CHOLHDL 2.8 12/16/2014 LDLCALC 45 12/16/2014VS:Blood pressure 138/63, pulse 82, temperature 99.7 F, temperature sourceOral, resp. rate 16, height 1.41 m (4' 7.5"), weight 57.2 kg (126 lb 1.6 oz),SpO2 98 %, not currently .I&O's:Intake/Output Summary (Last 24 hours) at 12/29/2020 0802Last data filed at 12/28/2020 2023Gross per 24 hourIntake 480 mlOutput 450 mlNet 30 mlROS:ROS EXAM:CONSTITUTIONAL: No change in weight, No weakness, No fatigue and No fevers,sweats, or chillsEYES:no vision changes or dischargeENT:No hearing loss,rhinitis,hoarseness,massesPULMONARY: No cough, sputum, or hemoptysis, No wheezing, No shortness or breathand No recent change in breathingCARDIOVASCULAR: No chest pain, No shortness of breath, No dyspnea on exertion,No orthopnea, No paroxysmal nocturnal dyspnea, No edema, No palpitations and NosyncopeGASTROINTESTINAL: No abdominal pain, No change in bowel habits, No significantchange in appetite, No nausea, vomiting, diarrhea, or constipation, N ohematemesis, No blood in stools or black tarry stools, No dysphagiaGU : No dysuria, No frequency, No incontinence and No urgencyHEMATOLOGIC: No coagulation disorder, No anemia, No abnormal bleeding, NobruisingEXTREMITIES: No pain, redness or swelling on the joints,SKIN/INTEGUMENTARY: No rash and No itchingNEUROLOGIC: Normal balance and No weaknessPSYCHIATRIC: No depression, No anxiety and No psychosisALLERGY/IMMUN: No allergic triggersENDOCRINE: No thyroid trouble and No excessive thirst or urinationSLEEP: No sleep disordersPHYSICAL EXAMINATION:General: alert, healthy, no distress, well nourished and well developedHENT: Normocephalic,no corneal arcus,no xanthomasOropharynx: mucous membranes are moistNeck: supple, no adenopathy, carotid up stroking is normal bilaterally nobruits, no JVD, neck veins flat, trachea midlineHeart: regular rate & rhythm, no murmurs, rubs and no gallopsLungs: clear to auscultation,no wheezing,rhonchi or rales,no use of accessorymuscles,symetrical chest wall movem entPulses: radial=2/4, carotid=2/4 w/o bruits, femoral=2/4, posterior tibial=2/4,dorsalis pedis=2/4Abdomen: abdomen soft, non-tender, normal bowel sounds, no masses ororganomegaly and no bruitsExtremities: no edema, no clubbing, no cyanosis, No clinical signs of a DVT,Strength equal bilaterallyNeuro Exam: alert & oriented x 3 with fluent speech,no abnormal movementsSkin:skin color, texture, turgor are normalMusculoskeletal: No painRegadenoson stress SPECT myocardial perfusion imaging . No Regadenoson/ low level exercise inducible chest pain2. Difficult stress EKG to interpret from the myocardial ischemic standpoint inlight of baseline repolarizationabnormalities. However, these did become more prominent with the above stress.3. Normal left ventricular wall motion. Reversible small-to m oderate-sized,faintly dense apical/lateral abnormalitysuggestive of a degree of stress inducible myocardial ischemia in the territoryof the circumflex coronary artery.Echocardiogram Doppler . Normal left ventricle internal dimensions, wall thickness, wall motion, wallthickening, and systolic function. LVdiastolic dysfunction with impaired relaxation filling pattern (Grade Idiastolic dysfunction). Moderate partial fusion ofthe early rapid filling phase with the atrial filling phase at 77 bpm.2. Mild left atrial dilatation.3. Suggestive of mild elevation of pulmonary artery systolic pressure.4. Mild aortic valve sclerosis of a 3-cuspid aortic valve. Trace aorticregurgitation.5. Tiny posterior pericardial effusionIMPRESSION AND PLAN:Principal Problem: Mesenteric artery stenosisActive Problems: Epigastric pain PAF (paroxysmal atrial fibrillation) Diabetes CKD (chronic kidney disease), stage III CAD (coronary artery disease) Hypertension Diastolic CHF Depressed GERD (gastroesophageal reflux disease) Hyperlipidemia Glaucoma Preoperative cardiovascular examinationPreoperative risk assessment: Elderly lady with multiple medical comorbidityincluding history of CAD status post CABG in 1993, history of for chronic atrialfibrillation High [id number] Score for Atrial Fibrillation Stroke Risk, noton anticoagulation due to the frequent fall and anemia. She had a nuclearperfusion scan done no evidence of any reversible or fixed perfusion defect.Transthoracic echocardiogram normal LV systolic function diastolic dysfunction.She also has other multiple medical comorbidity including history ofhypertension and hyperlipidemia and also peripheral vascular disease. She canproceed with the vascular surgery with acceptable risk without any furthercardiac work-up. Given her multiple comorbidity she is at intermediate risk forintermediate risk procedure.Paroxysmal atrial fibrillation: High [id number] Score for Atrial FibrillationStroke Risk in the long run if her anemia and frequent fall issues resolvedrecommend long-term anticoagulation. Discussed with the primary teamThank you for providing an opportunity to participate in this patient care. Ifyou have any question please do not hesitate to call us back.JOBY Moran MD, FAC, FASE, [facility]18:02 AMThis document or parts of this document, were dictated using Vuzixware. A reasonable attempt at proofreading has been made to minimize errors.Please call with any questions or corrections Name Value Range Interpretation Code Description Data Haylee rce(s) Supporting Document(s) ID Date Data Source [id number] 12/29/2020 05:29:20 AM EDT [facility] Name Value Range Interpretation Code Description Data Haylee rce(s) Supporting Document(s) POC NOVA GLU 105 mg/dL (70-99) H [facility]ICAL STAFF ID Date Data Source [id number] 12/29/2020 04:13:43 AM EDT [facility] Name Value Range Interpretation Code Description Data Haylee rce(s) Supporting Document(s) SODIUM 138 mmol/L (136-145) [facility] POTASSIUM 4.5 mmol/L (3.6-5.2) [facility] CHLORIDE 103 mmol/L (100-108) [facility] CO2 24 mmol/L (22-31) [facility] ANION GAP 11 mmol/L (7-16) [facility] UREA NITROGEN 41 mg/dL (7-24) H [facility] CREATININE 1.69 mg/dL (0.60-1.00) H [facility] BUN/CREAT RATIO 24.3 RATIO (10.0-20.0) H [facility] GLUCOSE 72 mg/dL (70-99) [facility] CALCIUM 8.5 mg/dL (8.4-10.2) [facility] GFR 30 ml/min/1.73m2 (>59) L [facility] GFR ( AMER) 36 ml/min/1.73m2 (>59) L [facility] GFR INTERPRETATION [facility] --NORMAL KIDNEY FUNCTION OR MILD DISEASE - GFR >OR= 60CHRONIC KIDNEY DISEASE - GFR 15 - 59RENAL FAILURE - GFR <15 Est. GFR calculation based on the MDRDstudy equation, which assumes a steadystate for creatinine. Est. GFR should notbe used for medication dosing. ID Date Data Source [id number] 12/29/2020 03:53:31 AM EDT [facility] Name Value Range Interpretation Code Description Data Haylee rce(s) Supporting Document(s) APTT 56.3 s (22.0-34.3) H [facility] ID Date Data Source [id number] 12/29/2020 03:49:51 AM EDT [facility] Name Value Range Interpretation Code Description Data Haylee rce(s) Supporting Document(s) WBC 20.6 10*3/uL (4.1-11.0) H [facility] RBC 3.39 10*6/uL (4.00-5.40) L [facility] HGB 10.7 g/dL (12.0-16.0) L [facility] HCT 33.4 % (36.0-47.0) L [facility] MCV 98.5 fL (80.0-95.0) H [facility] MCH 31.6 pg (27.0-32.0) [facility] MCHC 32.1 g/dL (32.0-36.0) [facility] RDW 16.6 % (10.5-14.5) H [facility] PLT 372 10*3/uL (150-450) [facility] MPV 9.3 fL (7.1-10.7) [facility] ID Date Data Source [id number] 12/28/2020 09:46:42 PM EDT [facility] Name Value Range Interpretation Code Description Data Haylee rce(s) Supporting Document(s) POC NOVA GLU 103 mg/dL (70-99) H [facility] STAFF ID Date Data Source [id number] 12/28/2020 06:05:04 PM EDT [facility] Name Value Range Interpretation Code Description Data Haylee rce(s) Supporting Document(s) POC NOVA GLU 164 mg/dL (70-99) H [facility]AFF ID Date Data Source [id number] 12/28/2020 05:16:37 PM EDT [facility] Name Value Range Interpretation Code Description Data Haylee rce(s) Supporting Document(s) &PDF [facility] HPSJTu0lLxQLOgTs24/AZFjjGJNwh5NyNUutTBl8XYunOLBkN4KwjCeoDBCCB9RPAkIYAhbMFKYKKWLj yKE [file] CCElXlStG2GrHtYtLA6ZIt7ZIsE0YQS0rJUfIy8ROlk2VBfUKgWqBI2OASt= ID Date Data Source [id number] 12/28/2020 03:35:12 PM EDT [place], [place] [address]Patient Name: ABDIRAHMAN YIPDOB: 1950ex: FOrdering Provider: LILIANA PEREAuthjerry Prov: LILIANA BECKERefervishal Provider: Procedure Performed: / NM CARDIAC GATED SPEC IMG EFWMExam Date: 12/28/2020 15:05MRN: [id number] Number: [id number] Class: InpatientAccount #: [id number] for Exam: Pre- op, vascular/high risk surgery, known CVD/CKD/IDDMTechnique: Pharmacologic stress test was performed. LEXISCAN was administered under the direction of the Cardiology Department. For the resting study the patient received 10 mCi of CARDIOLITE intravenously. For the pharmacologic stress portion the patient received 32.6 mCi of CARDIOLITE intravenously. Gated SPECT imaging was performed at rest and stress.Gated wall motion study and ejection fraction were also performed.Comparison: NoneFindings:Myocardial Perfusion Imaging: There are no fixed or reversible perfusion abnormalities. Left ventricular chamber size i s normal in stress and rest. There is no evidence of transient ischemic dilation.Gated Wall Motion Study and Ejection Fraction: The left ventricular ejection fraction measures 81 %. There are no focal or diffuse wall motion abnormalities identified.IMPRESSION: No evidence of infarct or ischemia. Normal left ventricular wall motion. Left ventricular ejection fraction is 81 %. If there is clinical concern for a hyperdynamic left ventricle, consider evaluation by echocardiogram.Report electronically signed by: MARISOL QUEZADA On 12/28/2020 3:35 PMWorkstation ID: [id number] Name Value Range Interpretation Code Description Data Haylee rce(s) Supporting Document(s) ID Date Data Source [id number] 12/28/2020 06:04:47 PM EDT [facility] Name Value Range Interpretation Code Description Data Haylee rce(s) Supporting Document(s) APTT 43.4 s (22.0-34.3) H [facility] ID Date Data Source [id number] 12/28/2020 12:30:23 PM EDT [facility] Name Value Range Interpretation Code Description Data Haylee rce(s) Supporting Document(s) POC NOVA GLU 102 mg/dL (70-99) H [facility] STAFF ID Date Data Source [id number] 12/28/2020 07:13:53 AM EDT [facility] Name Value Range Interpretation Code Description Data Haylee rce(s) Supporting Document(s) POC NOVA GLU 146 mg/dL (70-99) H [facility] STAFF ID Date Data Source [id number] 12/28/2020 07:00:48 AM EDT [facility] Name Value Range Interpretation Code Description Data Haylee rce(s) Supporting Document(s) POC NOVA GLU 172 mg/dL (70-99) H [facility] STAFF ID Date Data Source [id number] 12/28/2020 06:28:50 AM EDT [facility] Name Value Range Interpretation Code Description Data Haylee rce(s) Supporting Document(s) POC NOVA GLU 68 mg/dL (70-99) L [facility] STAFF ID Date Data Source [id number] 12/28/2020 01:57:45 AM EDT [facility] Name Value Range Interpretation Code Description Data Haylee rce(s) Supporting Document(s) APTT >150.0 s (22.0-34.3) H [facility] ALERTED CRITICAL RESULT TORENE(1267) D4( 97927) AT 0155 ON 12/28/20 [place] [address] ID Date Data Source [id number] 12/28/2020 02:11:44 AM EDT [facility] Name Value Range Interpretation Code Description Data Haylee rce(s) Supporting Document(s) POC NOVA GLU 255 mg/dL (70-99) H [facility] STAFF ID Date Data Source [id number] 12/27/2020 06:27:00 PM EDT [facility] Name Value Range Interpretation Code Description Data Haylee rce(s) Supporting Document(s) POC NOVA GLU 137 mg/dL (70-99) H [facility] STAFF ID Date Data Source [id number] 12/27/2020 06:56:00 PM EDT [facility] Name Value Range Interpretation Code Description Data Haylee rce(s) Supporting Document(s) APTT 23.5 s (22.0-34.3) [facility] ID Date Data Source [id number] 12/27/2020 05:11:23 PM EDT [address] [address]Nbxfhti Name: ABDIRAHMAN YIPDOB: 1950ex: FOrdering Provider: LILIANA BECKEAuthorizing Prov: LILIANA BECKERefervishal Provider: Procedure Performed: / XR CHEST PA AND LATERALExam Date: 12/27/2020 14:51MRN: [id number] Number: [id number] Class: InpatientAccount #: [id number] for Exam: pre-op cad hx.Technique: PA and lateral views obtained.Comparison: 10/10/2019Findings: Previous midline sternotomy. Numerous mediastinal clips are noted. Cardiac and mediastinal silhouettes within normal limits. No pleural effusions or pneumothorax. The lungs are clear. There are jkkx-oq-odjefeva degenerative changes of the thoracic spine.IMPRESSION: No acute lung disease.Report electronically signed by: CARLOS EDUARDO MOY On 12/27/2020 5:11 PMWorkstation ID: [id number] Name Value Range Interpretation Code Description Data Hayele rce(s) Supporting Document(s) ID Date Data Source [id number] 12/27/2020 03:20:32 PM EDT [facility] Name Value Range Interpretation Code Description Data Haylee rce(s) Supporting Document(s) POC NOVA GLU 143 mg/dL (70-99) H [facility] STAFF ID Date Data Source [id number] 12/27/2020 12:51:32 PM EDT [facility] Name Value Range Interpretation Code Description Data Haylee rce(s) Supporting Document(s) POC NOVA GLU 224 mg/dL (70-99) H [facility] STAFF ID Date Data Source [id number] 12/27/2020 09:58:26 AM EDT [facility] Name Value Range Interpretation Code Description Data Haylee rce(s) Supporting Document(s) POC NOVA GLU 77 mg/dL (70-99) [facility] STAFF ID Date Data Source [id number] 12/27/2020 12:47:57 PM EDT [facility] Name Value Range Interpretation Code Description Data Haylee rce(s) Supporting Document(s) COLOR [facility] APPEARANCE [facility] SPEC GRAV URINE 1.020 (1.003-1.030) [facility] PH URINE 6.0 (5.0-7.5) [facility] LEUK ESTERASE (NEG) [facility] NITRITE URINE (NEG) [facility] PROTEIN URINE (NEG) [facility] GLUCOSE URINE (NEG) [facility] KETONE URINE (NEG) [facility] UROBILINOGEN 0.2 mg/dL (0-1.0) [facility] BILIRUBIN URINE (NEG) [facility] BLOOD/HGB URINE (NEG) [facility] ID Date Data Source [id number] 12/27/2020 12:29:24 PM EDT [facility] Name Value Range Interpretation Code Description Data Haylee rce(s) Supporting Document(s) URN CULTURE HOLD [facility] FOR ADD ON CULTURE ID Date Data Source [id number] 12/27/2020 07:11:46 AM EDT [facility] Name Value Range Interpretation Code Description Data Haylee rce(s) Supporting Document(s) EKG [facility] XTWPWh6zVgIVCtJos2EhMqHkZHCsVO4gzzo2P5P4nTJgS5VqcEJhu8qfQ4VeH2LrGEQgBQTDWN7RsQAt jb2 [file] P//57/Po8+/floor manager//+r/+Zp6kBbBzcM9ArsofBiD5kih [file] +WBG5nz6e8XpOa9alasXh/floor manager/5502D5fciwdrmaFC5qvxbrV/bzZdh//PNT8/ymj2E84Jh4O++piwn7e wlk5c0d1GUnHodwZP65FP+4bLxvVH1ffMe6u/ZHwB4rQobq3Ww8Hsb11W8wk1u/7Z02i7+MWB9ko6tJp ze/0/ky2Ag1R/uDx4YXe25kYMU5lVRxo38wGqwua6d Ms3V+fP/vxuHI4dwi5q8fSveKcZRJNtj+8u/1yf/n94FG2oe0+8dh8Aj/9+q8v6U51D41Un+czLPf3xH F5+KI6xwcl4QtJI57E61U2AJu/++Px/u5Qv9P/60Rplzu0Xy8+jH2R2cmJEe+wbg575/2n/d3X/cdnFA 0/cvIW4u9a1/6+71z24DoAfkDZ9iQf0pIAI70oay96 TE2oQxsz1+p6K7g7z1/wgkSi3cZL0FTj5M6nzlI+e2T7EfimYvpmUBM//dQ3Jz27JtYaUEK7hrPseWfk juZiImdOYBdyPXOdFqe9TI5ZrQYpVKQpH9J7QCGhfz5gZAIeUJRujWLoAyRzBNMICM6LuZObBV6QGJm9 XEMeXFGgJhMgIXWwvqL1CZYfEQBlRRMiF9GypbJkyL AyIDAgUj4+IN8pw2ApFrBeYOCpKkj3BI5EiMBvKV8FjAYsoS6oawEeL356zxVfYBAfNssvj2SeLReyBM DCZS2MNUC8JDI9YFIlOr3+ZX4ka2KmLbQtOWMtCqy0RC7YlNBjz0LiOM6DK7MkTNGhDJOWZDJ7a0DdUK AsaisglvifT0CiQUF9nP8uBJV1FMSvNTwqASJqUWag MJK0QNVyLObdFLWrCKIfBESaMJTcWYn9iIWfTS1SW6QaSVMfXINCGNArtzTeYn1gJTNFJ0UTDyVFQlna JEVIUBJbPFS3VCx8PfQtBC9LlCNyLJT9NUhHQCOBXFdGFEhtAfXef1H0ERTrC0LnPQHwdlZuGYILSXqx PphzVO5flLxynsqlO7KfxNSiUBBILQCwZGKuKEGmBQ QvH6Jfc5Y4A3XwMRhBQAEXGGjJVUpoMnG1o02hxyMOBHTeNAWzQH3+NB8ge6YgTs0DWNGqIN6sohc9ME 7FaBHuFS8GBPvcckWoW1muxaDlNwMfDIBOXP8bJ8MwjZ78FOX+OeYhTJ7gqmq0pgGbCnXyBORiLEIiHF EkGExuTVOiUJPxWIFdATA6HET0EYZxBoIdTTOkPKS6 KXHoMFFqVQZjciBDMAQwVVN1JZBbTAEyTDAzFNEyWXkcOMXaEJv0Qqh7CAYpFLAuDP4hNmUtCFTdZCUq JXHwUlU5ZzWlUyXFVVNnZPHnIUGiPpZoCJAaBYMiKKngBPXmTNLhGAm0RVJnVDBgUE7cAhKjJSQsDASi CYVxJZMhTUAgvpSTAKYpFMImNZJ6OUBpTYJiQREgXG ntHUExOIOnTWI3ZHObOWDtIC0qDxTyNKPhVPC4JlMiMUPoMMTqejRCCOElRNTzOJQ8YEKsXOEpSVCrRV rhZHJyDGJdRzD9KLNdBUZgCA8sZmEjPMDcULV2TMHkTXDkLENihvQSAMRmIJAkZSp1CxRbFPJqLCSfEI sjPUPaSGMmLKhpSCVnOJJqQC0tIkVdJQIgSRApILWx WXXoWJWanjTFUKEsILMoQXU3YyYqIOYhSCFfBVpoPESwVOSeGAY3SLZoDZAeOW8aOxVvCWRnKITrVXtz VROwIZFwoaEALEImWGSoXRRgKYYfJTYnLODgLOtdFBDqXPYzFmX7NYCpGKHkVD1cTlRkIFSjSYT8CCCi ORPiGZLnicALOWCeDYMvAIGqVHV9RBUhYIWaLXx8kw RovYZuQbo5Eu2CgZcmPZB0Do4AnqCqFTUxNHZMIn8As719SGReNRMVPlv+UhkiaLNpxNieSTAIGPQ3GG WSBUBFG4N= ID Date Data Source [id number] 12/27/2020 07:11:40 AM EDT [facility] Name Value Range Interpretation Code Description Data Haylee rce(s) Supporting Document(s) EKG [facility] MFLOIr0pFoYAPyMlz3BuQtNeBBZrDG7wytt3F6U4hIOwQ4SelHNbt3mhZ7BlI3OtGVCiZBLFUE6SbDLn jb2 [file] qae611K6hiH7VH+jYKNgVvqzMk4+J+bank teller+wypx+nRkecV4QlponclxU4TD3+nwfSmfM1tPOIuypMl9mck 7S0WAt0r2NI9dp36z4I3wKRgZryLRkcRaDDrqy+PZK m7h1z39zOEB/FLeZ+castaneda/AGyf7uv0dm9XU9FL0c168gEjS9eZIGuBQ7rIMAC0/7DI9EX+igGyQ8Zb/vM/ [file] 5jjdw652Ytl60Y3tZ0gk26UHfnp08tUQj2NfJ2G5zgw/7rq7A4l8Zzj/+q6Md/Riya//Ve70r/0Rl2me4 9e+k4Jdoe32oC83T81s/XBVy8N+rTt8362MoI/vUwy bazRbgg0malwMWivMUCBMHGu2o3uvbyi5eY52BmyQS/3Lvz8AoxZ+8menA07n6KU8M987+2vPRNfWabP 07BoO1D/h8eSJpo91m2sEtnf7Tb+jmI7Oe6/8sJ9tIUzy8o95/F2/Uix4sSs+K9u+QC9/pRzsD7WD3jP cg6+qrGd+Oqmf/Jxb0FM7Yw/8Ryrf+eqi2MSQX+gp3 1x7wz0Ktdb/lYZQ/r5U0rpn1fxjs+KHii/IWc3/tKoekmcg9wrXz2fD4acp3unkAzLynR19ASUjA/iqy hxcGFbh62KA960NteK06Xq0zzc4/lYTXyV/Yk+H3tOzF/9ninurF3N3aj4uvEFx+5/CO0YrQniPmaopY Eufo5gbU+QD30D+kcm17hh5FeJL+vzbn/7ORvfadDb 253Xjj38JS8KO6069qmd3PmF05XtlidO4+2yAlHvYZ57eq++yvXhnIUv+jkK/6UC2WMk99Kp7Jmlwjz+ 4UDw1ESkxMVtez1L2A/d+p7j7y/kj78j1Ie5U/v6+blXR4gCytbax8y5+9fG1+WHc0ehx+Ibuzv3J7Xu 49nGghyB/H6+fzOC3A86kjeCj1341Pt59Qa2+drBVy 8NvaDvwVfVn/l9SHd/5gAd+n6cDkqhxDRuXmrYlfP1PeKyYyalvRQ2Rx579z67W7F+z09hXeDRPQzflX wtm2Rc3sSqVB3Bkq3vJS/6Jr4q+k1s9um3sBI+umnQoe+QluaGt72/3mEztu0VcZW7fhSjN/3+tdwfrP VNutr8Jvxx+4NJlw/f2p448oGHa96safxZeKo1Se4t WQJydo//aUsARnl451I4+vfK5Of4y7HncqlkcC1aoLL/0nJ/6HqXBC9n0cEcPzl/fWMn/ee/+lb25+e/ Fzo1osi/yw5mWRd+snyLMz206DmBHas71feV+En/1Ua4B401J8hYMoDTlk++4fylSA24oUe+tI079f+H rda6zZt1Ip/92foy7XaxsNk2hauxm40qqVp0NiUdtL 7paCobNy24geouyp/Szomvqv/ou5KYM5Ewd7ntombur/snDfjKHM/GB58My7pAtqERfkJ8SqFDiwfn4d +ZY/2VC3e1tqlvmH22mU6M8v11BLPVVQ/cZem/8qTn/aNMYzyn/yr7n/3qdaYvuOcZb96cm5a0YG RD+f79a+m/kym7V4T+0P+N/u+Wv/u+Noah+TE767Q+l /A19c3/pmxVrXP3CQ5QA2k/l2kk2KFPT0Lp0nS1Usor1aoGhQk7/aLk/TCTzc143lsq70QeC+2X+DdAn yk/IWSi/5dfe6B8dpeYi+yn+KegGeu//zv1O7aC1tYA9TMqC3i0/8EP2T4n2yV+3DvgYoE+Yu7Oz4Go/ 0EfvH/mAvkNRXlG+/e0+DHQHHfqm/8oq/caVp/+q6H i+6b/KZzc/0Hv++uzx7Lg/6HV/OZGP9IE4BF6FtkMfs925+f63ps722my/6hPVi4l++Ci73OITOvin+G f82tEqHkxGEpxj9h/nEX9027hnSVtNc4dAV011/aEMySYW4zngm2/ikj9c3tf0ZN1/lSe+qvTR9/hwHP 4rL/9V0tN/dZ5p+q+SDv+Foot Drill Operator/4fz6Z4o8Zegk/KKn1w whkP6b/K55X+q3xe6b+KpB//VaWP/2pX+vdeTvsffPXSv/L5TA++unTX++323H7PceGwjyxtg2v+8FX1 5sTlOGrolO1V4EMy7jWi10MLa48bTuzvaFLZZM9YQmdx7Y2fR8sJ6tKPP67j0Wg9/Y//Zn99lghRTs7s 4/ke/6VNi8GaxbjqI+aQnu0GZo57h4ePihkw0h7316 CvHm/xm9sejWZ1lS1hnrSvS+Ppm6eQxCrU13Crwn9VaT62+idP+cVuWrmZf9d+js7tjew4SJ9KL8rik4 o2BW1fD/h6a554A0YldX+Z14UjRZ65OrNrooMI9+EiCy4f9qr7VagB3dD9piZYV/6IxsjzIlbd0Vxid1 L3Ht4ZyO2g5MpkGP/5rq60X0yBhvwmco4+f5qGcaP+ e0hB5YTxW0Mj+q+KFz6MOl02vs42xkQP1V54ZSNFhd28s8NR6Qk8+JqeA6fy3AUAt/LxjSc/xhC3Gc40 3OU5Eo959KQtVf0tbDW+fl1X0Z/lO3bv1abx4umXmX6bkBekG201g4BkUcxovA/ljDzPkPQB+zJ3OarR lQ9nk4vz0zk5S7JRxRk9BeYuvfpioYBhd/JlZX4RrS C916tI/1Wk/N3lZ6/Zon4k0TFC990v0M/tMblh8UufUz4Xb14wPxcwQ8/dtPZzT/6N9jpzs0pvgfG5kK 18ZqD3RH25oc9iw/RTpGOE9g8Glama1RJH08YbNDu+v1KF95si3pLgnsqn2aABPWBxoNu9f1AP628Rch fqhN5EvZZMAtguB+Hjh6SxDVy/zslnrecj0YR8K9LG JA5K0hl0M66w1WQvH+S48XA2WicLVWIvZzEtTzRJl10ElwfJ6CuiAX4RSsyJqai6N84RlzsFUs/xfBXP V/W3sr8dHV5JQklf0hr7rdv/Hpm6YcF1P3WG7b6nPGbFz8lSP8/tg/0i/Cb4Gzmowi8T+Comnet983fz HX2jeIzoz9RFW2nZlcY/98c0Mz4/Xf7uiB++0ur/D1 +98j9/XZ5/iB+++msr+/Pz190+/Fv8x5K4S/56IJknMdxiHx0BRd6+2tnPg6/jbRnnzDL6LfGvv3Cy5Z ivvPFGeO//hvd+SiS+mknXtn/kg9A6E16nvP/e+93hjZ/UIM3j6hrq2rMyCLgB5XpjTf2UGvPE1bKeZ/ BVROPJiL7/Z8repl4/ByPxVZWxr/ae6CyZ4aHX4q27 c0P+bvm79/uf5BRfT+kQ1Ep6XF64Fse2zsr2Nx4l0U9rE1OivTgXiaZeA65F6gw3IzLinr/++vfC/lrf /xU6oc02zExc+7YjMg0BE8LwjH1bgyaKweH+qgqWzmG1EN9j/NZLx9eF00GF60ZYcSA/MOWMPh+7c3/w bkdgYR2EA5XV8Pwk9qOVSDJH1Q++PsFb52EcHR/6nj Vhjz6/lXQnGhD1sm3v18ie9zuL2rT+E/rOHs/98SvmSh1Gfw2S+ub+YJWRr+vi+L1KevoiLn6t05Gt88 g70iptrWh1Cb9Rv3weNdi18F72Vm1YbAUjcd/t1Xhjr/59tFe/f/fBV/jD8EqJ4rgyc0yS++YuiFe52S Wl+/27l4F+3r/nnbgTXx0/jp8jA4aG0xCA9scnx5tf /+mu9unxrpddjvtsj3MrkxmTt/dRpo++Nw36T9/4Wn37LuM5n++Cz190Xw/vqZ3+c2IjL97bskK/ynGY /qtKB+gB+zk2sEfOqX0aDfSNN/og2jtf11f1iCzTVnfljshqjFVUkc/nsA++ipwXKt3/g6/aaGrZ0EeW R9/U/rXqze06Jhmdrf36++Wvl9Qov1AjShby1U/l80 r/SfTuV6bLSd2wxD2/R7Gt/XX7+K9u+fZP7uO/boNIyRF2hcxEvZ2+Tcn9lkt2EetkcZHUi5777q4Dv/ 3r/igK75UDEd7bdl/BE8otgKN6t8RXa1fHealslQ77HjFXS331cwjcD5EO8FqV91440EmPPt54On8k4Y dR3R0lT2hjAqpw0fO55g7Laj0re3iN5e8IIiPF6+3g p4xk5bl9UfpVeaue8drhpW++cbYh718/6328lpoLr5M0v//rqqLzJStvxLKs4PrhRk7Af2SllS/6r/Sancho [file] CHILD CENTER ASSISTANT+D5RN+IK/jrWFm9Pkrlav91NubzQ+9ZIplA4nC3AVeBktj0P13hmWRuP5RGUPEoQFwUOe3GuqtnB8 [file] KQYMRGzEHByzGtXoe7O0YWZiyyMNESIHQHUZGb6zNR 0IUhjoRWQlHNX9UuyhKJWwO8IqrdJymEKpIVQEOGfkFemlRTGluV0kyHepB2IoGTW6p6TzTI0SR6JoNS PwERVRSGZ2c2WlITOsoydxxhruUoWiVGHrSUGqKUJmQB1Hbl9bnNBycoHsXFIPLYmwDbctXY9anTvpid wqX6OjoSHiZFK+JtRlRX5mva8+OaAiBEMrRln7ILKg EAytXBVoQVDcFJExT3vjYMHqCdYzORShBwLzAR5Fn5SceVSoUx8ggyYsNlsNrVQwAstfPUGxZCVpAHDm BbWZEHAbORJyQCTuWCE4IUMaJJLtFGkjWRIhNOvcWVS4VPRpAANtVU1lNhMlNSBuJDS0WSFhNIKxCEDj zfLRLAMdBYQ6HsF2FPQbCHKjRPXdTUutMYSrKINpVV DbSYM3VKF8EYFkSkSsWVQdEFKqKATeLDMsCTRjxuGXVMJfFCWtWQX3ASObLCTsUHZqPIfrEQCfXAAcYV jpHZWkJFIcXL9oKpDaNOMeLIVtUOcxHRKiUKEpaxNPBCNbKAUqNUIrLPGlRZJqGFLlGUabRUVgODSqOX FuHCEnYZElGO6cVoQpYWTeBIH5FJBzFEAyHPJypiND ZKDnADTcPDj9QQMyILBtCDYlVJynAMKaLGRwVRH7SUHoHLDqKM2vUjScLWUfWXH3IiLoHLDpBKNhfdDP PCKuUVBmGFN7OxXbMOLnPBQrNYgnYLWgQZVhIDcwRWFuGJGuXG6yUrJwHICiXKHwTRphFOKbSUCmmzAT MDAwMDAwMTQwNiAwMDAwMCBuIAowMDAwMDkzNDgxID UbJRJaDK3ePgYaPVKnBBP8SEoxOYUnVFLjepFIQAPbDVFoZPziTYPvCHKkPAFcPHlbSEKgERJkDWJ2NJ CdFBGmOQ2cNnSwLEQvJRUhXIUiEfW8FnSxQxQUvOLhmVofoqg9JZnvK1x1CQPdJBbfBS4xshWnZSYaBt moRr2rfHB7BIXmEcpZUz6Pk5McqzE9wrFjLaudILs0InHaGU3H ID Date Data Source [id number] 12/27/2020 10:49:22 AM EDT [facility] Name Value Range Interpretation Code Description Data Haylee rce(s) Supporting Document(s) LIPASE 24 U/L (65-230) L [facility] ID Date Data Source [id number] 12/27/2020 10:49:22 AM EDT [facility] Name Value Range Interpretation Code Description Data Haylee rce(s) Supporting Document(s) AMYLASE 18 U/L (25-115) L [facility] ID Date Data Source [id number] 12/27/2020 07:56:53 AM EDT [facility] Name Value Range Interpretation Code Description Data Haylee rce(s) Supporting Document(s) SODIUM 139 mmol/L (136-145) [facility] POTASSIUM 4.3 mmol/L (3.6-5.2) [facility] CHLORIDE 106 mmol/L (100-108) [facility] CO2 24 mmol/L (22-31) [facility] ANION GAP 9 mmol/L (7-16) [facility] UREA NITROGEN 38 mg/dL (7-24) H [facility] CREATININE 1.72 mg/dL (0.60-1.00) H [facility] BUN/CREAT RATIO 22.1 RATIO (10.0-20.0) H [facility] GLUCOSE 129 mg/dL (70-99) H [facility] CALCIUM 8.4 mg/dL (8.4-10.2) [facility] GFR 29 ml/min/1.73m2 (>59) L [facility] GFR ( AMER) 36 ml/min/1.73m2 (>59) L [facility] GFR INTERPRETATION [facility] --NORMAL KIDNEY FUNCTION OR MILD DISEASE - GFR >OR= 60CHRONIC KIDNEY DISEASE - GFR 15 - 59RENAL FAILURE - GFR <15 Est. GFR calculation based on the MDRDstudy equation, which assumes a steadystate for creatinine. Est. GFR should notbe used for medication dosing. ID Date Data Source [id number] 12/27/2020 07:31:15 AM EDT [facility] Name Value Range Interpretation Code Description Data Haylee rce(s) Supporting Document(s) WBC 11.1 10*3/uL (4.1-11.0) H [facility] RBC 3.48 10*6/uL (4.00-5.40) L [facility] HGB 10.8 g/dL (12.0-16.0) L [facility] HCT 34.6 % (36.0-47.0) L [facility] MCV 99.4 fL (80.0-95.0) H [facility] MCH 31.0 pg (27.0-32.0) [facility] MCHC 31.2 g/dL (32.0-36.0) L [facility] RDW 16.6 % (10.5-14.5) H [facility] PLT 391 10*3/uL (150-450) [facility] MPV 9.7 fL (7.1-10.7) [facility] ID Date Data Source [id number] 12/27/2020 05:44:52 AM EDT [facility] Name Value Range Interpretation Code Description Data Haylee rce(s) Supporting Document(s) POC NOVA GLU 142 mg/dL (70-99) H [facility] ID Date Data Source [id number] 12/27/2020 01:28:06 AM EDT [address] [id number] Name: Abdirahman YipDOB: 1950ex: FOrdering Provider: Leana Gabriel Prov: Leana Ulloaerralexx Provider: Procedure Performed: CT ANGIOGRAM ABDOMEN PELVISExam Date: 12/26/2020 22:53MRN: [id number] Number: [id number] Class: INFORMATION: Exam: CTA Abdomen and Pelvis With Contrast Exam date and time: 12/26/2020 11:11 PM Age: 70 years old Clinical indication: Condition or disease; Other: Mesenteric ischemia; Additional info: Mesenteric ischemia, chronic TECHNIQUE: Imaging protocol: Computed tomographic angiography of the abdomen and pelvis with IV contrast material. No oral contrast is evident on this exam. 3D rendering (Not supervised by radiologist): MIP and/or 3D reconstructed images were created by the technologist. Radiation optimization: All CT scans at this facility use at least one of these dose optimization techniques: automated exposure control; mA and/or kV adjustment per patient size (includes targeted exams where dose is matched to clinical indication); or iterative reconstruction. Contrast material: ISOVUE 370; Contrast volume: 70 ml; Contrast route: INTRAVENOUS (IV); COMPARISON: CT OUTSIDE CTA ABD/PELVIS 08/29/2020 11:43 AM FINDINGS: Lungs: Images through the lung bases demonstrate a minimal amount of scattered subsegmental atelectasis or parenchymal scarring in the lingula and bilateral lower lobes. Aorta/vasculature: Multiple vascular calcifications are seen in the coronary arteries, aorta, bilateral renal arteries, celiac artery, bilateral iliac charlotte jennifer, and other arterial vessels. The abdominal aorta is patent, with no evidence of abdominal aortic aneurysm or dissection. Compared with the prior exam, there has been interval new placement of vascular stent material in the proximal celiac artery. The celiac artery appears patent, with mild (less than 50%) arterial stenosis. 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 The SMA distal to this region is patent and possibly reconstituted by blood supply from mesenteric arteries or the right hepatic artery. The right hepatic artery is continuous with the SMA. The vi sualized proximal CARIDAD appears patent. The single main bilateral renal arteries, bilateral common iliac arteries, visualized proximal bilateral internal iliac arteries, bilateral external iliac arteries, and bilateral common femoral arteries are all patent. Aorta: See "Aorta/vasculature" finding. Celiac trunk and mesenteric arteries: See "Aorta/vasculature" finding. Renal arteries: See "Aorta/vasculature" finding. Right iliac arteries: See "Aorta/vasculature" finding. Left iliac arteries: See "Aorta/vasculature" finding. Liver: No abnormal masses or acute focal abnormalities are seen in the liver. Gallbladder and bile ducts: The gallbladder is surgically absent. The CBD is mildly prominent measuring up to 10 mm in diameter similar compared with the prior exam, which is nonspecific but could be related to post cholecystectomy biliary ectasia because no significant abnormal intrahepatic biliary dilation is seen. Pancreas: No abnormal masses or acute focal abnormalities are seen in the pancreas. No significant acute peripancreatic inflammatory changes are seen. Spleen: No abnormal masses or acute focal abnormalities are seen in the spleen. There is no evidence of splenomegaly. Adrenal glands: No abnormal masses are seen in the adrenal glands. Kidneys and ureters: No abnormal masses are seen in the kidneys. There is no evidence of hydronephrosis. No ureteral stones are seen. 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 There is no evidence of bowel obstruction, pneumoperitoneum, ascites, acute diverticulitis, or abscess. The majority of the ascending colon is underdistended, which limits detection of any possible areas of underlying colitis that could be involving the ascending colon. Appendix: The appendix is seen and appears normal. Intraperitoneal space: See above. Lymph nodes: No abnormally enlarged lymph nodes measuring greater than 1 cm in short axis diameter are seen in the abdomen or pelvis. Urinary bladder: No stones are seen in the urinary bladder. Reproductive: No abnormal uterine or ovarian enlargement is seen. Bones/joints: Sternotomy wires are seen, and were also present on the prior exam. Multilevel degenerative changes are seen in the lumbar spine and in the visualized portions of the lower thoracic spine, which are associated with least mild central spinal stenosis at L2-L3 and L4-L5, along with at least moderate central spinal stenosis at L3-L4. Degenerative changes produce grade 1 anterior spondylolisthesis of L4 relative to L5, which appears similar compared with 08/29/2020. No acute displaced or depressed fracture is seen involving the visualized bony structures that were included on this CT scan. Soft tissues: No significant size abnormal focal soft tissue hematoma is seen in the visualized portions of the soft tissues that were included on the field of view of this CTA abdomen/pelvis exam. IMPRESSION: 1. Compared with the prior exam, there has been interval new placement of vascular stent material in the proximal celiac artery. The celiac artery appears patent, with mild (less than 50%) arterial stenosis. 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 The SMA distal to this region is patent and possibly reconstituted by blood supply from mesenteric arteries or the right hepatic artery. The right hepatic artery is continuous with the SMA. The visualized proximal CARIDAD appears patent. The remainder of the major arterial branch vessels arising from the abdominal aorta appear patent. Multiple arterial vascular calcifications are seen, as described above.2. The gallbladder is surgically absent. The CBD is mildly dilated up to 10 mm in diameter which is probably related to post cholecystectomy biliary ectasia, however correlation with the patient's bilirubin level is recommended to exclude the possibility of biliary stenosis/partial biliary obstruction producing this finding.3. Multilev el degenerative changes are seen in the lumbar spine and in the visualized portions of the lower thoracic spine, which are associated with least mild central spinal stenosis at L2-L3 and L4-L5, along with at least moderate central spinal stenosis at L3-L4. Other findings as above.Report electronically signed by: TILA ALVARADO MD on 12/27/2020 01:28:06 Name Value Range Interpretation Code Description Data Haylee rce(s) Supporting Document(s) ID Date Data Source [id number] 12/27/2020 07:51:20 AM EDT [facility] Name Value Range Interpretation Code Description Data Haylee rce(s) Supporting Document(s) POC NOVA GLU 81 mg/dL (70-99) [facility] ID Date Data Source [id number] 12/27/2020 12:10:59 AM EDT [address] [id number] Name: Abdirahman YipDOB: 1950ex: FOrdering Provider: Leana Gabriel Prov: Leana Ulloaerralexx Provider: Procedure Performed: CT ORBIT WO CONTRASTExam Date: 12/26/2020 22:53MRN: [id number] Number: [id number] Class: INFORMATION: Exam: CT Orbits Without Contrast Exam date and time: 12/26/2020 10:53 PM Age: 70 years old Clinical indication: Injury or trauma; Fall; Concussion/head injury; Loss of consciousness not known; Additional info: Hit head with fall. Swollen tender lateral left ethmoid/zygmotic arch TECHNIQUE: Imaging protocol: Computed tomography images of the orbits without contrast. Radiation optimization: All CT scans at this facility use at least one of these dose optimization techniques: automated exposure control; mA and/or kV adjustment per patient size (includes targeted exams where dose is matched to clinical indication); or iterative reconstruction. COMPARISON: No relevant prior studies available. FINDINGS: Orbital cavity: There is no evidence of retro-bulbar hemorrhage. There is no evidence of globe injury. Bilateral lens implants. Paranasal sinuses: Clear. No air-fluid levels. Bones/joints: No acute fracture. Soft tissues: Small region of soft tissue induration overlying the left zygomatic arch and left supraorbital region laterally. IMPRESSION: No acute fracture or dislocation. Report electronically signed by: SHARDA CASAREZ MD on 12/27/2020 00:10:59 Name Value Range Interpretation Code Description Data Haylee rce(s) Supporting Document(s) ID Date Data Source [id number] 12/27/2020 12:10:40 AM EDT [address] [id number] Name: Abdirahman YipDOB: 1950ex: FOrdering Provider: Leana Gabriel Prov: Leana Magana Provider: Procedure Performed: CT HEAD WO CONTRASTExam Date: 12/26/2020 22:53MRN: [id number] Number: [id number] Class: INFORMATION: Exam: CT Head Without Contrast Exam date and time: 12/26/2020 10:53 PM Age: 70 years old Clinical indication: Injury or trauma; Fall; Concussion/head injury; Additional info: S/P fall on blood thinners TECHNIQUE: Imaging protocol: Computed tomography of the head without contrast. Radiation optimization: All CT scans at this facility use at least one of these dose optimization techniques: automated exposure control; mA and/or kV adjustment per patient size (includes targeted exams where dose is matched to clinical indication); or iterative reconstruction. COMPARISON: No relevant prior studies available. FINDINGS: Brain: No acute intracranial hemorrhage or abnormal extra-axial fluid collection. No evidence of acute transcortical infarct. No mass effect. Patchy areas of low attenuation within the supratentorial white matter on a background of age-related atrophy. Cerebral ventricles: No hydrocephalus. Paranasal sinuses: Visualized sinuses are unremarkable. No fluid levels. Mastoid air cells: Trace right mastoid effusion. The left mastoid air ce lls are clear. Orbital cavity: Bilateral lens implants. Vasculature: Atherosclerosis within the intracranial vasculature. Bones/joints: No depressed skull fracture or aggressive osseous lesion. Soft tissues: Small region of soft tissue induration overlying the left zygomatic arch and left supraorbital region laterally. IMPRESSION: 1. No acute intracranial abnormality. 2. Chronic parenchymal changes on a background of age-related atrophy is most compatible with microangiopathic disease . Report electronically signed by: SHARDA CASAREZ MD on 12/27/2020 00:10:40 Name Value Range Interpretation Code Description Data Haylee rce(s) Supporting Document(s) ID Date Data Source [id number] 12/26/2020 11:06:15 PM EDT [facility] Name Value Range Interpretation Code Description Data Haylee rce(s) Supporting Document(s) PT 10.8 s (9.2-11.9) [facility] INR 1.03 [facility] SUGGESTED THERAPEUTIC RANGES USING INR F ORSTABILIZED ANTICOAGULATED PATIENTS:STANDARD DOSE THERAPY INR 2.0-3.0 DVT, PE, PREVENT DVT OR EMBOLISMHIGH DOSE THERAPY INR 2.5-3.5 PREVENT EMBOLISM FROM MECHANICAL HEART VALVE ID Date Data Source [id number] 12/26/2020 11:06:15 PM EDT [facility] Name Value Range Interpretation Code Description Data Haylee rce(s) Supporting Document(s) APTT 28.3 s (22.0-34.3) [facility] ID Date Data Source [id number] 12/26/2020 09:25:38 PM EDT [facility] Name Value Range Interpretation Code Description Data Haylee rce(s) Supporting Document(s) POC NOVA GLU 129 mg/dL (70-99) H [facility] [place] [facility] ID Date Data Source [id number] 12/26/2020 06:44:01 PM EDT [facility] Name Value Range Interpretation Code Description Data Haylee rce(s) Supporting Document(s) POC NOVA GLU 126 mg/dL (70-99) H [facility] [place] [facility] ID Date Data Source [id number] 12/26/2020 05:28:33 PM EDT [facility] Name Value Range Interpretation Code Description Data Haylee rce(s) Supporting Document(s) POC NOVA GLU 147 mg/dL (70-99) H [facility] [place] [facility] ID Date Data Source [id number] 12/26/2020 04:42:24 PM EDT [facility] INFORMATIONPatient MRN Name Date of Age Gend*PT [id number] AkinAbdirahman martinez 1950 70 years F IPPT Location Admission Date/Time Visit ID Attending [id number] 12/26/20 1512 --- Leana Barron MD([id number]) EPI ID CSN Admitting Provider [id number] Leana Barron MD([id number]) Attestation signed by Leana Barron MD at 12/26/2020 4:42 PMI saw and evaluated the patient and reviewed note. I agree with the history,physical and medical decision makingSignature: Leana Barron MDDate: December 26, 2020Time: 4:42 PM ---------Inpatient History & PhysicalAbdirahman YipMRN:[id number] and Plan:Principal Problem: Mesenteric artery stenosisActive Problems: Epigastric pain PAF (paroxysmal atrial fibrillation) Diabetes CKD (chronic kidney disease), stage III CAD (coronary artery disease) Hypertension Diastolic CHF Depressed GERD (gastroesophageal reflux disease) Hyperlipidemia Glaucoma 1. Admit patient to Dr. Barron diagnosis mesenteric artery stenosis/celiacartery stenosis/ vs occlusion status post stenting. 2. N.p.o. 3. Mesenteric ischemia -Patient to have a CTA of the abdomen pelvis. -She will have hydration with normal saline 75 cc an hour for now. -Continue Plavix and aspirin. 4. HLD - Atorvastatin 5. CAD/HTN/history of diastolic heart failure. -Lasix 20 mg p.o. twice daily, is read of pain 2.5 mg twice daily, metoprololsuccinate 25 mg daily, spironolactone 25 mg twice daily. 6. Depression -Cymbalta 60 mg twice daily. 7. DM 2 -We will add Lantus and sliding scale. 8. CKD 3 -Patient will need IV hydration for her CTA with her renal function. Cautionthat the amount of fluid given her history of diastolic heart failure. 9. Full code 10. Hypothyroid -Levothyroxine 100 mcg daily ordered. 11. Fall with left orbit hematoma -Given the fact that the patient is on antiplatelets and that she hastenderness to palpation over the left orbit and that she may need furtheranticoagulation this hospital admission, she will have a CT of her brain and herorbit to evaluate for bleeding fracture. 12. DVT prophylaxis with subcutaneous heparin. Further plan per the attending physician Leana Barron MD.Chief Complaint: Abdominal painHPI: The patient is a 70-year-old female patient of Dr. Barron's who has a pastmedical history significant for CAD status post CABG, HTN, HLD, CKD 3 GERD,diastolic CHF, DM, carotid artery disease s/p left CEA, mesenteric arterystenosis, paroxysmal atrial fibrillation, metabolic syndrome, GA, glaucoma,gastric bypass surgery in 2012, who was sent to the emergency department todayafter she was seen in the vascular surgery office. The patient was last admitted to the vascular surgery service in August of thisyear. She initially was set to undergo a mesenteric arterial bypass, Howevershe went to interventional radiology with Dr. Barron and via a left brachialcutdown had an aortogram with celiac artery balloon expanding stent and balloonangioplasty. The patient tolerated the procedure well. She was found to have achronically occluded SMA and uncertain perfusion to the CARIDAD. The patient wastolerating meals without postprandial pain at the time of her discharge.She reports that she was overall doing well until little over a week ago whenshe started to have a generalized constant abdominal pain. She denies anyworsening with eating and has been eating but the pain has not ceased since thattime. She went to the office today with ultrasound unable to show her celiacartery and now severe stenosis of the CARIDAD was identified. Given the fact thatthe celiac was not able to be visualized and the worsening abdominal pain andthe fact that she had recent stenting in place, she was sent to the hospital forimaging and admission.The patient denies any fevers or chills. She denies any bloody stools. Shedenies any nausea or vomiting. She is just had this constant pain that radiatesacross her lower abdomen as well as her upper right upper abdomen. She deniesany chest pain or shortness of breath. Of note she did have a's fall due tomechanical issue at home a couple of days ago. She did hit her head she wasawake the entire time.Past Medical History:Past Medical History:Diagnosis Date CAD (coronary artery disease) s/p CABG, Followed by Dr Bocanegra Carotid artery disease 12/27/2014 s/p LCEA, Dr Nieves Chronic vascular disorder of intestine CKD (chronic kidney disease), stage III followed by Dr Lira Colon polyp Depressed Diabetes Diastolic CHF GERD (gastroesophageal reflux disease) Glaucoma History of transfusion Hyperlipidemia Hypertension Macular degeneration Mesenteric artery stenosis Metabolic syndrome GA (myocardial infarction) Osteoarthritis PAF (paroxysmal atrial fibrillation) H/O, s/p atrial ablation S/P gastric bypass 07/2012 Dr Olivo Sleep apnea CPAP TIA (transient ischemic attack)Past Surgical History:Past Surgical History:Procedure Laterality Date ABDOMINAL HERNIA REPAIR N/A 10/07/2019 Procedure: LAPAROSCOPY, EXPLORATORY, WITH EXTENSIVE LYSIS OF ADHESIONS, ANDEVALUATION OF INTERNAL HERNIA; Surgeon: Nghia Butterfield MD; Laterality: N/A; ATRIAL ABLATION SURGERY 2009 CARDIAC CATHETERIZATION 2008,2012 CATARACT EXTRACTION W/ INTRAOCULAR LENS IMPLANT, BILATERAL CHOLECYSTECTOMY COLONOSCOPY CORONARY ARTERY BYPASS GRAFT 1993 ELBOW FRACTURE SURGERY Right EYE SURGERY LASER FOR GLAUCOMA LAPAROSCOPIC INCISIONAL / UMBILICAL / VENTRAL HERNIA REPAIR LUMBAR SPINE SURGERY 2010 PANENDOSCOPY N/A 01/03/2017 Procedure: ENDOSCOPY W ANESTHESIA; Surgeon: Kristie Cisneros MD; Laterality:N/A; CLIVE-EN-Y PROCEDURE 2013 UPPER GASTROINTESTINAL ENDOSCOPY VASCULAR SURGERY Left 12/27/2014 Procedure: EVERSION CAROTID ENDARTERECTOMY LEFT; Surgeon: Collin Nieves MD;Location: [facility]; Service: Vascular; Laterality: Left; WISDOM TOOTH EXTRACTIONMedications:Medication electrolyte-R (NORMOSOL-R/PLASMALYTE-R) solution insulin glargine (LANTUS) injection 25 Units insulin lispro (HumaLOG) injection 1-10 UnitsMedication levothyroxine (SYNTHROID, LEVOTHROID) 100 MCG tablet acetaminophen (TYLENOL) 650 MG CR tablet allopurinol (ZYLOPRIM) 100 MG tablet Ammonium Lactate 10 % CREA aspirin EC 81 MG EC tablet atorvastatin (LIPITOR) 10 MG tablet brimonidine (ALPHAGAN) 0.2 % ophthalmic solution Calcium Citrate-Vitamin D 315-250 MG-UNIT TABS clopidogrel (PLAVIX) 75 MG tablet docusate sodium (COLACE) 100 MG capsule DULoxetine (CYMBALTA) 60 MG capsule esomeprazole (NEXIUM) 40 MG capsule ferrous gluconate (FERGON) 324 MG tablet furosemide (LASIX) 20 MG tablet gabapentin (NEURONTIN) 400 MG capsule Insulin Aspart (NOVOLOG FLEXPEN) 100 UNIT/ML SOPN Insulin Glargine, 1 Unit Dial, (TOUJEO SOLOSTAR) 300 UNIT/ML SOPN isradipine (DYNACIRC) 2.5 MG capsule latanoprost (XALATAN) 0.005 % ophthalmic solution memantine (NAMENDA) 10 MG tablet mupirocin (BACTROBAN) 2 % ointment nitroglycerin (NITROSTAT) 0.4 MG SL tablet spironolactone (ALDACTONE) 25 MG tablet SUPER B COMPLEX/C PO therapeutic multivitamin-minerals (CENTRUM SILVER ADULT 50+) tablet tiZANidine (ZANAFLEX) 2 MG tablet vitamin B-12 (CYANOCOBALAMIN) 1000 MCG tabletAllergies:CaptoprilFamily History:Family HistoryProblem Relation Age of Onset Heart disease Mother Heart disease Brother Maljessica Hyperthermia Neg HxSocial History:Social HistoryTobacco Use Smoking status: Former Smoker Packs/day: 1.50 Years: 23.00 Pack years: 34.50 Types: Cigarettes Quit date: 12/16/1993 Years since quittin.0 Smokeless tobacco: Never UsedSubstance Use Topics Alcohol use: Not Currently Drug use: NeverReview of Systems:Constitutional: negative for chills and feversEyes: negative for visual disturbanceEars, nose, mouth, throat, and face: negative for nasal congestion and sorethroatRespiratory: negative for coughCardiovascular: negative for chest painGastrointestinal: positive for abdominal pain, negative for diarrhea andvomitingGenitourinary:negative for dysuriaIntegument/breast: positive for Bruising to her left eye, negative for rashMusculoskeletal:negative for neck painNeurological: Headache or dizziness. She denies loss of consciousness with herfall.Endocrine: Diabetic. Takes her medication.Physical Exam:Vital Signs: Temp: [97.4 F] 97.4 FHeart Rate: [80] 80Resp: [18] 18BP: (173)/(72) 173/72General: 70-year-old female appears comfortable sitting on stretcher.HEENT: Normocephalic, she has obvious swelling to the left periorbital regionwith ecchymosis. She is tender to palpation along the lateral aspect of theorbit into the zygomatic bone. Extraocular motors are intact. Scleraanicteric. She is status post bilateral cataract lens implants. Oropharynx ismoist. She has a partial upper and lower.Neck: Anterior suppleCervical spine: Nontender to palpation over cervical spinous processes.Neuro: She is alert and oriented x3. Her speech is clear and she has toquestions appropriately.Cardiac: Regular rate and rhythm S1-S2.Lungs: Clear to auscultation no wheezes rhonchi appreciated.Abdomen: Positive bowel sounds, soft, no specific rebounding guarding orrigidity.Extremities: No edema. Calves are supple nontender.Skin: Warm and dry. Ecchymosis to the left orbital region as above. No otherrashes noted.Labs, Imaging and Other Diagnostics:Diagnostic tests reviewed:Labs and CTA of the abdomen pelvis and CT brain and orbit ordered.Signature: Liliana Middleton, PADate: December 26, 2020Time: 4:23 PM Name Value Range Interpretation Code Description Data Haylee rce(s) Supporting Document(s) ID Date Data Source [id number] 12/26/2020 10:06:28 PM EDT [facility] [place] [facility] Name Value Range Interpretation Code Description Data Haylee rce(s) Supporting Document(s) MAGNESIUM 2.2 mg/dL (1.7-2.4) [facility] [place] [facility] ID Date Data Source [id number] 12/26/2020 09:07:24 PM EDT Lab [facility] Name Value Range Interpretation Code Description Data Haylee rce(s) Supporting Document(s) HEMOGLOBIN A1C @ 6.8 % (4.0-6.0) H [facility] [place] Performed using Siemens [place] immunoassa y.Care must be taken when interpreting LaK5hidgbwbf in patients with a hemoglobin variantor decreased erythrocyte lifespan. Values 5.7 - 6.4% suggest prediabetes.Values >=6.5% are diagnostic for diabetes.REFERENCE: DIABETES CARE 2018: 41(S13-S27).PERFORMED AT [address] [place] [id number] EST AVERAGE GLUCOSE 148 mg/dL [facility] ID Date Data Source [id number] 12/26/2020 06:20:38 PM EDT [facility] [place] [facility] Name Value Range Interpretation Code Description Data Haylee rce(s) Supporting Document(s) NT PRO BNP 853 pg/mL (0-125) H [facility] [place] [facility] ID Date Data Source [id number] 12/26/2020 06:19:18 PM EDT [facility] [place] [facility] Name Value Range Interpretation Code Description Data Haylee rce(s) Supporting Document(s) SODIUM 138 mmol/L (136-145) [facility] [place] [facility] POTASSIUM 4.1 mmol/L (3.6-5.2) [facility] [place] [facility] CHLORIDE 102 mmol/L (100-108) [facility] [place] [facility] CO2 25 mmol/L (22-31) [facility] [place] [facility] ANION GAP 11 mmol/L (7-16) [facility] [place] [facility] UREA NITROGEN 39 mg/dL (7-24) H [facility] [place] [facility] CREATININE 1.81 mg/dL (0.60-1.00) H [facility] [place] [facility] BUN/CREAT RATIO 21.5 RATIO (10.0-20.0) H [facility] GLUCOSE 165 mg/dL (70-99) H [facility] [place] [facility] CALCIUM 9.1 mg/dL (8.4-10.2) [facility] [place] [facility] TOTAL PROTEIN 7.4 g/dL (6.4-8.2) [facility] [place] [facility] ALBUMIN 3.0 g/dL (3.2-4.5) L [facility] [place] [facility] GLOBULIN 4.4 g/dL (2.7-4.3) H [facility] [place] [facility] ALB/GLOB RATIO 0.7 RATIO [facility] [place] [facility] ALKALINE PHOSPHATASE 116 U/L (45-117) [facility] BILIRUBIN,TOTAL 0.3 mg/dL (0.0-1.0) [facility] [place] [facility] PLEASE NOTE:Total bilirubin results may be falselyelevated in patients taking Eltrombopag. AST (SGOT) 19 U/L (11-39) [facility] [place] [facility] ALT (SGPT) 26 U/L (12-78) [facility] [place] [facility] GFR 28 ml/min/1.73m2 (>59) L [facility] [place] [facility] GFR ( AMER) 34 ml/min/1.73m2 (>59) L [facility] [place] [facility] GFR INTERPRETATION [facility] --NORMAL KIDNEY FUNCTION OR MILD DISEASE - GFR >OR= 60CHRONIC KIDNEY DISEASE - GFR 15 - 59RENAL FAILURE - GFR <15 Est. GFR calculation based on the MDRDstudy equation, which assumes a steadystate for creatinine. Est. GFR should notbe used for medication dosing. ID Date Data Source [id number] 12/26/2020 06:11:10 PM EDT [facility] [place] [facility] Name Value Range Interpretation Code Description Data Haylee rce(s) Supporting Document(s) WBC 17.6 10*3/uL (4.1-11.0) H [facility] [place] [facility] RBC 3.98 10*6/uL (4.00-5.40) L [facility] [place] [facility] HGB 12.3 g/dL (12.0-16.0) [facility] [place] [facility] HCT 39.1 % (36.0-47.0) [facility] [place] [facility] MCV 98.2 fL (80.0-95.0) H [facility] [place] [facility] MCH 30.9 pg (27.0-32.0) [facility] [place] [facility] MCHC 31.4 g/dL (32.0-36.0) L [facility] [place] [facility] RDW 16.9 % (10.5-14.5) H [facility] [place] [facility] PLT 455 10*3/uL (150-450) H [facility] [place] [facility] MPV 10.2 fL (7.1-10.7) [facility] [place] [facility] ID Date Data Source [id number] 12/26/2020 05:03:23 PM EDT [facility] [place] [facility] Name Value Range Interpretation Code Description Data Haylee rce(s) Supporting Document(s) LACTIC ACID 1.5 mmol/L (0.4-2.0) [facility] [place] [facility] ID Date Data Source [id number] 12/26/2020 03:47:25 PM EDT [facility] [place] [facility] Name Value Range Interpretation Code Description Data Haylee rce(s) Supporting Document(s) POC NOVA GLU 180 mg/dL (70-99) H [facility] [place] [facility] PERFORMED BY [facility] CLINICAL STAFF ID Date Data Source [id number] 12/26/2020 03:16:00 PM EDT [facility] Name Value Range Interpretation Code Description Data Haylee rce(s) Supporting Document(s) SARS coronavirus 2 RNA [Presence] in Res piratory specimen by TOMAS with probe detection NOT DETECTED [facility] This lab was reported by [facility] [place] [facility]. ID Date Data Source [id number] 12/26/2020 06:25:29 PM EDT Lab [facility] Name Value Range Interpretation Code Description Data Haylee rce(s) Supporting Document(s) SPECIMEN DESCRIPTION [facility] INFLUENZA A (NEG) [facility] [place] [facility] INFLUENZA B (NEG) Lab [facility] RSV (NEG) [facility] [place] [facility] COMMENT [facility] [place] [facility] THE [place] FDA HAS MADE THIS TEST AVAILABL EUNDER AN EMERGENCY USE AUTHORIZATION(EUA) FOR THE DETECTION AND/OR DIAGNOSISOF THE VIRUS THAT CAUSES COVID-19.PERFORMED AT [address] [place] [id number] COVID19 RESULT (NDET) [facility] [place] [facility] THIS ASSAY AMPLIFIES AND DETECTSTHE TARG ET RNA USING REAL-TIME PCR.TESTING PERFORMED ON Wayna[employer] GENEXPERTNEGATIVE 2019_NCOV RT-PCR RESULTS DONOT PRECLUDE 2019_NCOV INFECTION ANDSHOULD NOT BE USED THE SOLE BASISFOR PATIENT MANAGEMENT DECISIONS. FIRST TEST [facility] [place] [facility] EMPLOYED IN HLTHCARE [facility] SYMPTOMATIC [facility] [place] [facility] DATE OF SYMPT ONSET [facility] HOSPITALIZED [facility] [place] [facility] ICU [facility] [place] [facility] CONGREGATE CARE SET [facility] [place] [facility] ID Date Data Source [id number] 12/30/2020 04:09:01 AM EDT [facility] [place] [facility] SPEC EXP DATE 12/29/2020ATI ENT ABO/Rh A POSITIVEANTIBODY SCREEN NEGATIVETESTING SITE PERFORMED AT [address] [place] [address] [id number] BANK COMMENT BLOOD TYPE CONFIRMED.UNIT NUMBER [id number] COMPONENT TYPE LEUKOPOOR RED CELLSUNIT DIVISION 00STATUS OF UNIT REL FROM ALLOCTRANSFUSION STATUS OK TO TRANSFUSECROSSMATCH RESULT COMPATIBLEUNIT NUMBER [id number] COMPONENT TYPE LEUKOPOOR RED CELLSUNIT DIVISION 00STATUS OF UNIT REL FROM ALLOCTRANSFUSION STATUS OK TO TRANSFUSECROSSMATCH RESULT COMPATIBLE Name Value Range Interpretation Code Description Data Haylee rce(s) Supporting Document(s) TYPE AND SCREEN [facility] [place] [facility] ID Date Data Source [id number] 12/26/2020 01:10:00 PM EDT [facility] ([facility]) Name Value Range Interpretation Code Description Data Haylee rce(s) Supporting Document(s) Mesenteric Artery Ultrasound Laboratory test result [facility] ([facility]) ID Date Data Source [id number] 12/15/2020 01:55:[address] [facility] Name Value Range Interpretation Code Description Data Haylee rce(s) Supporting Document(s) Progress Note [facility] SRQJYq2cEzLLRmPt16/FFLnnWKExw3WdYJymZMy3MEqfKJVfD9XkOIU6lX0qJNU2NOmRNmYaApGbKjWl m [file] AgICAgICAgICAgICAgICAgICAgICAgICAgICAgICAg ICAgICAgICAgICAgICAgICAgICAgICAgICAgICAgICAgICAgDQogICAgICAgICAgICAgICAgICAgICAg ICAgICAgICAgICAgICAgICAgICAgICAgICAgICAgICAgICAgICAgICAgICAgICAgICAgICAgICAgICAg ICAgICAgICAgICAgICAgICAgDQogICAgICAgICAgIC AgICAgICAgICAgICAgICAgICAgICAgICAgICAgICAgICAgICAgICAgICAgICAgICAgICAgICAgICAgIC AgICAgICAgICAgICAgICAgICAgICAgICAgICAgDQogICAgICAgICAgICAgICAgICAgICAgICAgICAgIC AgICAgICAgICAgICAgICAgICAgICAgICAgICAgICAg ICAgICAgICAgICAgICAgICAgICAgICAgICAgICAgICAgICAgICAgDQogICAgICAgICAgICAgICAgICAg ICAgICAgICAgICAgICAgICAgICAgICAgICAgICAgICAgICAgICAgICAgICAgICAgICAgICAgICAgICAg ICAgICAgICAgICAgICAgICAgICAgDQogICAgICAgIC AgICAgICAgICAgICAgICAgICAgICAgICAgICAgICAgICAgICAgICAgICAgICAgICAgICAgICAgICAgIC AgICAgICAgICAgICAgICAgICAgICAgICAgICAgICAgDQogICAgICAgICAgICAgICAgICAgICAgICAgIC AgICAgICAgICAgICAgICAgICAgICAgICAgICAgICAg ICAgICAgICAgICAgICAgICAgICAgICAgICAgICAgICAgICAgICAgICAgDQogICAgICAgICAgICAgICAg ICAgICAgICAgICAgICAgICAgICAgICAgICAgICAgICAgICAgICAgICAgICAgICAgICAgICAgICAgICAg ICAgICAgICAgICAgICAgICAgICAgICAgDQogICAgIC AgICAgICAgICAgICAgICAgICAgICAgICAgICAgICAgICAgICAgICAgICAgICAgICAgICAgICAgICAgIC AgICAgICAgICAgICAgICAgICAgICAgICAgICAgICAgICAgDQogICAgICAgICAgICAgICAgICAgICAgIC AgICAgICAgICAgICAgICAgICAgICAgICAgICAgICAg FMKfSNXsPSAhYBSbFOLjTGNcNSAoJZDhNYPnKBDoAPWgMYDvDNUnQPHlDVOeEOg3V8htFBQwXIYgVG2x EXd1Zj8+XSaAViAfZLS0rjBsgR4UKF8vp5RwMJpnNLSnd3EbSUt7QB7OGZYaTNpyTB7FYAbxzc9EYMEu BKHczFKWd1loLoPoNSV2YWCfIpulJB1CNCWfE4fiot ZuEKNpZXIZMY7AUvUnW0EydR97AXOEEj8+FCkdggQrLnbHVkT3AHVxq8LrMRg0IM9CIBIyMswse3ZtLj AvTOJBDPleAF4KWTA9KVZrEALaXe7RNDRzG851aaUbOS3SGn0HElCtZU5dvc4GKnEgZWRqMrbONxl0OQ peIB8FdCVhHYpHrr0wqfHuydRDi4OzlxHriTFZcGCa a6KagSzcxkRODXqnEXJwWr8mBr8hSMVcYZU9VwV7RRFAML8IJURqCIJeyYVlGTToAOHAYJ8MMHedZCE2 TPNyazYvvYXrXRgwPR5QPHVhbvWsLDjaXRJZWFo+Cc3RJQ3lf4UyPHhdKKTjSD0njr3LTKrYEqVxR1M0 oOWyB3P8RLgoXa8UWSAeWQPmTAdyKUTAUKndWD1JFV 3hboR3AM2GoAXiOIMkUJVgsNVuXHj4Z63beMUkDEwoTU7BYIN+Nadine+Jm5XMAQfUHDsBPDyJlRgMOOYCi UaT3CiW1LLv5DaV1ElCK08yKgdjrMdQApgTT1WOS1qPBTiKJZOOS0AmAEjuA9jetRpFQGqZJQTPbQdH1 3hmJXeFUGnDRP3FOFiMk0WWDAeZ9NmjdLwxLqhqhVc VPTbHDEJZZ4IHMoswqDnlXXrwFduTB26hHrdTM9AKn9QHeJqQC6tzi3RjDQpYk7GONMkNk1JLZXtUNDj DLUkQZK8EOCuQmOeMOjqZTZcRZFsRTW4ZOYvVUCqYY6YFePkJZOhCSceSOrlFLBdMUUbye7GRIUlLYQi CYc4YAHeGTDfNNWrBCwbZYSxYBBnTKO9GJGoHQEcTL 9YWcSxPMJsIRB5TLGzSRXeIOYham0WPZNiZCFoAyP6ZoPoKGMvOITyNAvdCQWkGRAjHGN2CQHyCFLoCQ 7FKnPrGUBiQBSyHVIoDJYpCHMgyi5YNKYsSWVwEcHlNyCuMQUgXAXcQTjpEADtPST4JDlcPUEdUWKzSH 8TPvCmTRUtVDQ0MGHjISOdGRArzg4XOBSfVHXsURv9 UFVkFSHbHYIzDIriXOGtBJN1ErB7WAYyTJIyJO6INmLqANCjNYQ6QHUzQBEoTAPndm0GASUuCKHgOgt5 VAEgZQZuZDKqNGgxYJHlQDL4CYf8ESDnXYHcKQ8WDvQdBWRyZSukKzHkRWTuYGTvxq9CKMNoSFMsVpMw GSOdRFMzWHJrIXqgNUXhKIT0PDwfRKWvNRYuOH1FHn YlSPGlBEqyUODlBWAyWVSeln6CMKQjPRRdKKF7FKXlKKLlOOLlZTc7qkQspRPzOVm4KK4VB6NswcZlJp YINi2Ue971BVYoUZDuNx7EP4eiJt9uNXMsAIOVMq3RPQz6PTI3V4O1ClK1VnLrYJnwXLY5Fid9AAG8Kg hhZDUwNjg+NIahKXplQIBoJtO8BNAoXQUoReZpKNvw ZwT3ZYGsACW0ND3hXVCGCw1+MAhykWPuqHnaSJRYPmP6EKY8EYzxUUFPWx5E ID Date Data Source [id number] 12/15/2020 01:55:[address] [facility] Name Value Range Interpretation Code Description Data Haylee rce(s) Supporting Document(s) Progress Note [facility] AHUFGy2lYfCRCdXy34/JRWzrZTRjq9AxVVrjVIz3JZcyRBDsT8YgEIO8aI3kDSX9HPpSOzNqQhZtZmHd lbm [file] AgICAgICAgICAgICAgICAgICAgICAgICAgICAgICAg ICAgICAgICAgICAgICAgICAgICAgICAgICAgICANCiAgICAgICAgICAgICAgICAgICAgICAgICAgICAg ICAgICAgICAgICAgICAgICAgICAgICAgICAgICAgICAgICAgICAgICAgICAgICAgICAgICAgICAgICAg ICAgICAgICAgICANCiAgICAgICAgICAgICAgICAgIC AgICAgICAgICAgICAgICAgICAgICAgICAgICAgICAgICAgICAgICAgICAgICAgICAgICAgICAgICAgIC AgICAgICAgICAgICAgICAgICAgICANCiAgICAgICAgICAgICAgICAgICAgICAgICAgICAgICAgICAgIC AgICAgICAgICAgICAgICAgICAgICAgICAgICAgICAg ICAgICAgICAgICAgICAgICAgICAgICAgICAgICAgICANCiAgICAgICAgICAgICAgICAgICAgICAgICAg ICAgICAgICAgICAgICAgICAgICAgICAgICAgICAgICAgICAgICAgICAgICAgICAgICAgICAgICAgICAg ICAgICAgICAgICAgICANCiAgICAgICAgICAgICAgIC AgICAgICAgICAgICAgICAgICAgICAgICAgICAgICAgICAgICAgICAgICAgICAgICAgICAgICAgICAgIC AgICAgICAgICAgICAgICAgICAgICAgICANCiAgICAgICAgICAgICAgICAgICAgICAgICAgICAgICAgIC AgICAgICAgICAgICAgICAgICAgICAgICAgICAgICAg ICAgICAgICAgICAgICAgICAgICAgICAgICAgICAgICAgICANCiAgICAgICAgICAgICAgICAgICAgICAg ICAgICAgICAgICAgICAgICAgICAgICAgICAgICAgICAgICAgICAgICAgICAgICAgICAgICAgICAgICAg ICAgICAgICAgICAgICAgICANCiAgICAgICAgICAgIC AgICAgICAgICAgICAgICAgICAgICAgICAgICAgICAgICAgICAgICAgICAgICAgICAgICAgICAgICAgIC AgICAgICAgICAgICAgICAgICAgICAgICAgICANCiAgICAgICAgICAgICAgICAgICAgICAgICAgICAgIC AgICAgICAgICAgICAgICAgICAgICAgICAgICAgICAg ICAgICAgICAgICAgICAgICAgICAgICAgICAgICAgICAgICAgICANCjw/qHSnF4xibWIsicJ9T8yzCv4N Mi8XBM0eq6CtSABkDBvozwHvUxsICuRoXXDqMzhXRzq3TVacHS1TaWTlJ7MzJ4PdMHcxLU2OGRNfDITx pGVmBIPwHNTgXsB3OWChRPixIX8OlMGtQLlpVTBfBN JmQuFmNNXfPPLwYKWtGYKoKZYRKGSdNWXeFxKmKTTeGWEyMF8EJUUzI938leWlHg3LPj8BMzVaLN2emb 3FOOJxMOTzHzwWMbc8XGifJE7YpCXseKH6PSKjJJMQTkUkG0dvk3AuEYKvDXHQFJzfLZ5Gc0MyrPFkFC o+Ft6RNG7jz3GaGIu4FOVaZA5agr6WFGqBGjNbW9La kNqzDUAut6thJAZxOA1weMQkVFO5ATseB6j6xnLXUFafNIlsukDfRMYGLTX6TXocVvBqPkWhFEPtERb9 ZMRCCKfDJrWmE7Xot1DcCbN0KESpVrGhLLerEIYdOyV8BQ07xBboHP3APKRiWDLxXQ22CJTmFFKxOs4M Xs9XGxJoGD7ull1ERFLbWMWzEotXZkf0SBimNI8AtS PsR8BemLLas0qAHwIbD5LLXCG3UISpYj3ZWQVkSbRgSXMyTHdaEX7eVZNjBNWYvKmhwiK9AQ5NKF6qrg FvZK2AQqLkLy8lUf5KJdNgO0ShH6UxIKLoDVAKBSotYR9QRYoqKE5mHB3Xg5DBtKPvkL0ryh1NGIEjDV EyDflfdt3GVzpbY1X8bTejHTJsTLOwHIIDSVgkUO8J QDMuJTS4OICeDNZjUPJUZmSjJ21eKL7DO8Kzv61nLeR9DIGpDyWoGFbyCG70xPfpunDlrKTsmGhbGJ7E Cj4+KHsmrmTuKndCJkpeZWRQTgIsVESEBgVnCYQcJKFmGESrEhX9RoHwFs1SHVXwUHAxOKFsRzAvMBIs IBBmAYswKXWdKENhLGVvSQItZLVxGQ0VNvYmCONrIm VoBsunIXKsBKKjsc8OECOwCAUfWAC1BnDrVDTgTPIlIZjkBQJlEGFeBaMbNAOtKTTnCA1SYuCpJWLkMJ A2RPxzKXOoWVZfkc8CATGcOFFpUCt3ODCiTLQgCZZlARzeEBCvMRX1NOs4VLRoIUMnBL8XPiSuNMLoGZ q3KoBnTLLiVYAhxr4QJPUzOUDmHFG1AVPmDKVnDGQn RLnwGKDxZODiZFc7RRVmKABcJJ3OFuQoCLSpRZVkMYSqFLIdFURsxp8IHPBpWHWaLbF1TXZxDHQjZLNl LHwqPPQuNXM8NTF9NQOqTGTuXB1OGcZcKJFwSJbbLQPeJFMgKCRedm9RBCInZCKhMPEfIWWdBDFoAJRp XMwwMYWfFLN1LsglEHCaSZQiFK8KMiJqIEUnETm8Zt ztPSDvBZYjtd4OYPTpOCPnZBy1GILbCKFqYGKcMRveJUBkTVIjQuL1VTCuZNLjMH2NQwVzEFArCaV2KY VeGZHaUKBqmu3XEXJmPGMwFDA4YRPeAFVuUJCnSOpuJWGwDXNsGPh3TZOkTLPtNG3SOmVmFFYyHSA5Ci IfDVRqGOUqky4YMRZpRAC1JVqpMoRgGRQwHPIjZMea XKUsERW4QDakIJSeQGMmPO0KOfFgQOXjBRO3LnxqZQIbNENcys0YACZmKOD5HiH8XnHrDOTiAEXlJMzt VWOsSEG3DPwlTQQqTUPhYN7APrKlOBZaOBuuXColMBHjOWKucu9MHXMnPHQ2MPwzMUCaQEMaFVNiEVgi JLGeLENtQdR1HSGqGFVoQA6QYpFcGPIvGjC4QDIuTA XnGOPmxn6GEUIsJMM2NcN5OxCaNDFiMUQhSBweGLAeLWEbINT9OHDhIJXdUH2FSqLqNIQkIaWlHBJkXY QaJXRpyq0EULXaLKU3PvO4RIElXMTrLSBbBTocOTYqGCOdQYS7TAMaFXWgZT7DZsSnGQWwXfG2JMnpKA OnQDXckz3GPTGcHSZ8NLN0OJSiUMGgPJCmZGgkRHLu DAH9NYX4AWRsOLLvSJ1QTrZvQQStJtP2QLGvJCRiWQFxpk2EiCSxiOhsng1XPXbYHh5ZwYneALEfNLgr Zu6sbEJ3ZsFyTGLHXz0EedJxHMAnGNPEYHosBYTbRHJeZeKmJ9YbHEU8PyppRgbnPzH9TiXbCNEtDxtb HhHeImV0JDV8IZWtB8C2HAA7DESdPBQkUJIvCjEzYA IzNzIzNDE+YI8kUWo+Yd6Ts8IaupA4beFdFGk0PDgyEI6IXGTIC7RUWv== ID Date Data Source [id number] 12/07/2020 02:46:00 PM EDT [facility] ([facility] Name Value Range Interpretation Code Description Data Haylee rce(s) Supporting Document(s) Appearance of Urine Laboratory test result [facility] Color Urine Laboratory test result M [facility] ([facility] PH Urine 5.5 5.0-8.0 [facility] ([facility] Specific [place] 1.015 1.00-1.03 [facility] ([facility] Glucose Urine Laboratory test result [facility] ([facility] Bilirubin.total [Presence] in Urine by Test strip Laboratory test res ult [facility] ([facility] Ketones Laboratory test result [facility] ([facility] Blood Urine Laboratory test result M [facility] ([facility] Protein Urine Laboratory test result Above high normal [facility] ([facility] Urobilinogen 0.2 EU/dl 0.2-1.0 [facility] Leukocytes Laboratory test result ME [facility] ([facility] Nitrite Laboratory test result [facility] ([facility] ID Date Data Source [id number] 12/05/2020 12:57:00 PM EDT [facility] ([facility]) Name Value Range Interpretation Code Description Data Haylee rce(s) Supporting Document(s) Bacteria identified in Wound by Culture Laboratory test result [facility] ([facility]) <content>FULL REPORT IN LAB NOTES ([facility] a nd [facility]).</content>
<content></content>
<content>ORGANISM 1: STAPHYLOCOCCUS AUREUS</content>
<content></content>
<content>QUANTITY OF GROWTH MODERATE</content>
<content></content>
<content></content>
<content> ORGANISM 1: STAPHYLOCOCCUS AUREUS</content>
<content></content>
<content>STAPHYLOCOCCUS AUREUS: REACTION</content>
<content>ICR (INDUCIBLE CC RESISTANCE) IV ICR TEST RESULT</content>
<content>TETRACYCLINE PO 250 mg qid 2 S</content>
<content>PENICILLIN G IV 1 mu q6H >=0.5 R</content>
<content>PENICILLIN G IV 1 mu q6h >=0.5 R</content>
<content>PENICILLIN G PO 250mg q6h fasting >=0.5 R</content>
<content> TRIMETHOPRIM/SULFAMETHOXAZOLE IV 160mg TMP & 800mg SMXq6h <=10 S</content>
<content>TRIMETHOPRIM/SULFAMETHOXAZOLE PO Bactrim DS Bid <=10 S</content>
<content>ERYTHROMYCIN IV 500mg q6h <=0.25 S</content>
<content>ERYTHROMYCIN PO 500mg q6h <=0.25 S</content>
<content>GENTAMICIN IV 80mg q8h <=0.5 S</content>
<content>CLINDAMYCIN IV 600mg q6h 0.25 S</content>
<content>CLINDAMYCIN PO 150mg q6h 0.25 S</content>
<content>OXACILLIN IV 500mg q6h 1 S</content>
<content>VANCOMYCIN IV 500mg q8h 1 S</content>
<content>LINEZOLID (ZYVOX) IV 600MG Q12HR 2 S</content>
<content> LINEZOLID (ZYVOX) PO 600MG Q12HR 2 S</content>
<content>An isolate with a (+) POSITIVE ICR test is considered</content>
<content>CLINDAMYCIN RESISTANT; however, clindamycin may still</content>
<content>be effective in some patients.</content>
<content>An isolate with a (-) NEGATIVE ICR test is considered</content>
<content>CLIDAMYCIN SENSITIVE.</content>
<content>Oxacillin result predicts susceptibility to all penicillinase-stable</content>
<content>penicillins (Nafcillin, Dicloxacilin), Cephalosporins, Carbapenems,</content>
<content>Amoxicillin/Clavulanate & Ampicillin/Sulbactam per [facility] standards.</content>
<content></content> ID Date Data Source [id number] 12/01/2020 10:06:00 AM EDT [facility] ([facility] Name Value Range Interpretation Code Description Data Haylee rce(s) Supporting Document(s) Hemoglobin A1c/Hemoglobin.total in Blood 6.8 % 4.50-6.20 Above high normal [facility] ([facility] ID Date Data Source [id number] 12/01/2020 09:49:00 AM EDT [facility] ([facility] Name Value Range Interpretation Code Description Data Haylee rce(s) Supporting Document(s) WBC 16.3 10E3/uL 4.1-10.9 Above high normal [facility] T ([facility] NORMAL RANGES Age WBC RBC HGB HCT MCV PLT Adult M 4.1-10.9 4.20-6.30 12.0-18.0 37.0-51.0 80-97 140-440 Adult F 4.1-10.9 4.04-5.48 12.0-18.0 37.0-51.0 80-97 140-440 0 -1 Yr 5.0-20.0 3.9-5.9 15-18 MV: 44 MV: 91 MV: 277 2-9 Yr. 6.0-17.0 3.8-5.4 11-13 MV: 37 MV: 78 MV: 300 10 Yrs. 5.0-13.0 3.8-5.4 12-15 MV: 39 MV: 80 MV: 250 NOTE: * FOR ADULT BLACK MALES AND FEMALES, NORMAL WBC IS 2.9-7.7 K/ML * FOR ADULT BLACK MALES AND FEMALES, NORMAL RBC,HGB, AND HCT IS 5% LESS SOURCE FOR DATA: [employer] DYN 1800 OPERATION MANUAL( AUTOMATED BLOOD COUNTS AND DIFF.) APPENDIX B-3 CHRONIC KIDNEY DISEASE STAGING PER NKF: MALE GFR INTERPRETATION: 20-49 YRS: >60 mL/min Normal 50-59 YRS: >56 mL/min Normal 60-69 YRS: >49 mL/min Normal 70-79 YRS: >42 mL/min Normal 80 and above >35 mL/min Normal FEMALE GRF INTERPRETATION: 20-39 YRS: >60 mL/min Normal 40-49 YRS: >58 mL/min Normal 50-59 YRS: >51 mL/min Normal 60-69 YRS: >45 mL/min Normal 70-79 YRS: >39 mL/min Normal 80 and above >32 mL/min NormalCLASSIFICATION CHOLESTEROL FOR ADULTS CHILDREN/ADOLESCENTS* DESIRABLE: <200 MG/DL <170 MG/DL BORDER-LINE HIGH RISK: 200-239 MG/DL 170-199 MG/DL HIGH RISK: >240 MG/DL >200 MG/DL CLASS. FOR PRIMARY LDL CHOL PREVENTION: LDL CHOL-CHILD/ADOLESCENTS* DESIRABLE: <130 MG/DL <110 MG/DL BORDERLINE-HIGH RISK: 130- 159 MG/DL 110-129 MG/DL HIGH RISK: >160 MG/DL >130 MG/DL *CHILDREN AND ADOLESCENTS REPRESENTS INDIVIDUALA AGED 2-19 YEARS EXCLUSIVE. RBC 3.48 10E6/uL 4.20-6.30 Below low normal [facility] ([facility] NORMAL RANGES Age WBC RBC HGB HCT MCV PLT Adult M 4.1-10.9 4.20-6.30 12.0-18.0 37.0-51.0 80-97 140-440 Adult F 4.1-10.9 4.04-5.48 12.0-18.0 37.0-51.0 80-97 140-440 0 -1 Yr 5.0-20.0 3.9-5.9 15-18 MV: 44 MV: 91 MV: 277 2-9 Yr. 6.0-17.0 3.8-5.4 11-13 MV: 37 MV: 78 MV: 300 10 Yrs. 5.0-13.0 3.8-5.4 12-15 MV: 39 MV: 80 MV: 250 NOTE: * FOR ADULT BLACK MALES AND FEMALES, NORMAL WBC IS 2.9-7.7 K/ML * FOR ADULT BLACK MALES AND FEMALES, NORMAL RBC,HGB, AND HCT IS 5% LESS SOURCE FOR DATA: [employer] 1800 OPERATION MANUAL( AUTOMATED BLOOD COUNTS AND DIFF.) APPENDIX B-3 CHRONIC KIDNEY DISEASE STAGING PER NKF: MALE GFR INTERPRETATION: 20-49 YRS: >60 mL/min Normal 50-59 YRS: >56 mL/min Normal 60-69 YRS: >49 mL/min Normal 70-79 YRS: >42 mL/min Normal 80 and above >35 mL/min Normal FEMALE GRF INTERPRETATION: 20-39 YRS: >60 mL/min Normal 40-49 YRS: >58 mL/min Normal 50-59 YRS: >51 mL/min Normal 60-69 YRS: >45 mL/min Normal 70-79 YRS: >39 mL/min Normal 80 and above >32 mL/min NormalCLASSIFICATION CHOLESTEROL FOR ADULTS CHILDREN/ADOLESCENTS* DESIRABLE: <200 MG/DL <170 MG/DL BORDER-LINE HIGH RISK: 200-239 MG/DL 170-199 MG/DL HIGH RISK: >240 MG/DL >200 MG/DL CLASS. FOR PRIMARY LDL CHOL PREVENTION: LDL CHOL-CHILD/ADOLESCENTS* DESIRABLE: <130 MG/DL <110 MG/DL BORDERLINE-HIGH RISK: 130- 159 MG/DL 110-129 MG/DL HIGH RISK: >160 MG/DL >130 MG/DL *CHILDREN AND ADOLESCENTS REPRESENTS INDIVIDUALA AGED 2-19 YEARS EXCLUSIVE. HGB 11.3 g/dL 12.0-18.0 Below low normal [facility] ( [facility] NORMAL RANGES Age WBC RBC HGB HCT MCV PLT Adult M 4.1-10.9 4.20-6.30 12.0-18.0 37.0-51.0 80-97 140-440 Adult F 4.1-10.9 4.04-5.48 12.0-18.0 37.0-51.0 80-97 140-440 0 -1 Yr 5.0-20.0 3.9-5.9 15-18 MV: 44 MV: 91 MV: 277 2-9 Yr. 6.0-17.0 3.8-5.4 11-13 MV: 37 MV: 78 MV: 300 10 Yrs. 5.0-13.0 3.8-5.4 12-15 MV: 39 MV: 80 MV: 250 NOTE: * FOR ADULT BLACK MALES AND FEMALES, NORMAL WBC IS 2.9-7.7 K/ML * FOR ADULT BLACK MALES AND FEMALES, NORMAL RBC,HGB, AND HCT IS 5% LESS SOURCE FOR DATA: [employer]press 1800 OPERATION MANUAL( AUTOMATED BLOOD COUNTS AND DIFF.) APPENDIX B-3 CHRONIC KIDNEY DISEASE STAGING PER NKF: MALE GFR INTERPRETATION: 20-49 YRS: >60 mL/min Normal 50-59 YRS: >56 mL/min Normal 60-69 YRS: >49 mL/min Normal 70-79 YRS: >42 mL/min Normal 80 and above >35 mL/min Normal FEMALE GRF INTERPRETATION: 20-39 YRS: >60 mL/min Normal 40-49 YRS: >58 mL/min Normal 50-59 YRS: >51 mL/min Normal 60-69 YRS: >45 mL/min Normal 70-79 YRS: >39 mL/min Normal 80 and above >32 mL/min NormalCLASSIFICATION CHOLESTEROL FOR ADULTS CHILDREN/ADOLESCENTS* DESIRABLE: <200 MG/DL <170 MG/DL BORDER-LINE HIGH RISK: 200-239 MG/DL 170-199 MG/DL HIGH RISK: >240 MG/DL >200 MG/DL CLASS. FOR PRIMARY LDL CHOL PREVENTION: LDL CHOL-CHILD/ADOLESCENTS* DESIRABLE: <130 MG/DL <110 MG/DL BORDERLINE-HIGH RISK: 130- 159 MG/DL 110-129 MG/DL HIGH RISK: >160 MG/DL >130 MG/DL *CHILDREN AND ADOLESCENTS REPRESENTS INDIVIDUALA AGED 2-19 YEARS EXCLUSIVE. MCV 98.3 fL 80.0-97.0 Above high normal [facility] ([facility] NORMAL RANGES Age WBC RBC HGB HCT MCV PLT Adult M 4.1-10.9 4.20-6.30 12.0-18.0 37.0-51.0 80-97 140-440 Adult F 4.1-10.9 4.04-5.48 12.0-18.0 37.0-51.0 80-97 140-440 0 -1 Yr 5.0-20.0 3.9-5.9 15-18 MV: 44 MV: 91 MV: 277 2-9 Yr. 6.0-17.0 3.8-5.4 11-13 MV: 37 MV: 78 MV: 300 10 Yrs. 5.0-13.0 3.8-5.4 12-15 MV: 39 MV: 80 MV: 250 NOTE: * FOR ADULT BLACK MALES AND FEMALES, NORMAL WBC IS 2.9-7.7 K/ML * FOR ADULT BLACK MALES AND FEMALES, NORMAL RBC,HGB, AND HCT IS 5% LESS SOURCE FOR DATA: [employer] DYN 1800 OPERATION MANUAL( AUTOMATED BLOOD COUNTS AND DIFF.) APPENDIX B-3 CHRONIC KIDNEY DISEASE STAGING PER NKF: MALE GFR INTERPRETATION: 20-49 YRS: >60 mL/min Normal 50-59 YRS: >56 mL/min Normal 60-69 YRS: >49 mL/min Normal 70-79 YRS: >42 mL/min Normal 80 and above >35 mL/min Normal FEMALE GRF INTERPRETATION: 20-39 YRS: >60 mL/min Normal 40-49 YRS: >58 mL/min Normal 50-59 YRS: >51 mL/min Normal 60-69 YRS: >45 mL/min Normal 70-79 YRS: >39 mL/min Normal 80 and above >32 mL/min NormalCLASSIFICATION CHOLESTEROL FOR ADULTS CHILDREN/ADOLESCENTS* DESIRABLE: <200 MG/DL <170 MG/DL BORDER-LINE HIGH RISK: 200-239 MG/DL 170-199 MG/DL HIGH RISK: >240 MG/DL >200 MG/DL CLASS. FOR PRIMARY LDL CHOL PREVENTION: LDL CHOL-CHILD/ADOLESCENTS* DESIRABLE: <130 MG/DL <110 MG/DL BORDERLINE-HIGH RISK: 130- 159 MG/DL 110-129 MG/DL HIGH RISK: >160 MG/DL >130 MG/DL *CHILDREN AND ADOLESCENTS REPRESENTS INDIVIDUALA AGED 2-19 YEARS EXCLUSIVE. HCT 34.2 % 37.0-51.0 Below low normal [facility] ( [facility] NORMAL RANGES Age WBC RBC HGB HCT MCV PLT Adult M 4.1-10.9 4.20-6.30 12.0-18.0 37.0-51.0 80-97 140-440 Adult F 4.1-10.9 4.04-5.48 12.0-18.0 37.0-51.0 80-97 140-440 0 -1 Yr 5.0-20.0 3.9-5.9 15-18 MV: 44 MV: 91 MV: 277 2-9 Yr. 6.0-17.0 3.8-5.4 11-13 MV: 37 MV: 78 MV: 300 10 Yrs. 5.0-13.0 3.8-5.4 12-15 MV: 39 MV: 80 MV: 250 NOTE: * FOR ADULT BLACK MALES AND FEMALES, NORMAL WBC IS 2.9-7.7 K/ML * FOR ADULT BLACK MALES AND FEMALES, NORMAL RBC,HGB, AND HCT IS 5% LESS SOURCE FOR DATA: 23press 1800 OPERATION MANUAL( AUTOMATED BLOOD COUNTS AND DIFF.) APPENDIX B-3 CHRONIC KIDNEY DISEASE STAGING PER NKF: MALE GFR INTERPRETATION: 20-49 YRS: >60 mL/min Normal 50-59 YRS: >56 mL/min Normal 60-69 YRS: >49 mL/min Normal 70-79 YRS: >42 mL/min Normal 80 and above >35 mL/min Normal FEMALE GRF INTERPRETATION: 20-39 YRS: >60 mL/min Normal 40-49 YRS: >58 mL/min Normal 50-59 YRS: >51 mL/min Normal 60-69 YRS: >45 mL/min Normal 70-79 YRS: >39 mL/min Normal 80 and above >32 mL/min NormalCLASSIFICATION CHOLESTEROL FOR ADULTS CHILDREN/ADOLESCENTS* DESIRABLE: <200 MG/DL <170 MG/DL BORDER-LINE HIGH RISK: 200-239 MG/DL 170-199 MG/DL HIGH RISK: >240 MG/DL >200 MG/DL CLASS. FOR PRIMARY LDL CHOL PREVENTION: LDL CHOL-CHILD/ADOLESCENTS* DESIRABLE: <130 MG/DL <110 MG/DL BORDERLINE-HIGH RISK: 130- 159 MG/DL 110-129 MG/DL HIGH RISK: >160 MG/DL >130 MG/DL *CHILDREN AND ADOLESCENTS REPRESENTS INDIVIDUALA AGED 2-19 YEARS EXCLUSIVE. MCH 32.5 pg 26.0-32.0 Above high normal [facility] ([facility] NORMAL RANGES Age WBC RBC HGB HCT MCV PLT Adult M 4.1-10.9 4.20-6.30 12.0-18.0 37.0-51.0 80-97 140-440 Adult F 4.1-10.9 4.04-5.48 12.0-18.0 37.0-51.0 80-97 140-440 0 -1 Yr 5.0-20.0 3.9-5.9 15-18 MV: 44 MV: 91 MV: 277 2-9 Yr. 6.0-17.0 3.8-5.4 11-13 MV: 37 MV: 78 MV: 300 10 Yrs. 5.0-13.0 3.8-5.4 12-15 MV: 39 MV: 80 MV: 250 NOTE: * FOR ADULT BLACK MALES AND FEMALES, NORMAL WBC IS 2.9-7.7 K/ML * FOR ADULT BLACK MALES AND FEMALES, NORMAL RBC,HGB, AND HCT IS 5% LESS SOURCE FOR DATA: 23press 1800 OPERATION MANUAL( AUTOMATED BLOOD COUNTS AND DIFF.) APPENDIX B-3 CHRONIC KIDNEY DISEASE STAGING PER NKF: MALE GFR INTERPRETATION: 20-49 YRS: >60 mL/min Normal 50-59 YRS: >56 mL/min Normal 60-69 YRS: >49 mL/min Normal 70-79 YRS: >42 mL/min Normal 80 and above >35 mL/min Normal FEMALE GRF INTERPRETATION: 20-39 YRS: >60 mL/min Normal 40-49 YRS: >58 mL/min Normal 50-59 YRS: >51 mL/min Normal 60-69 YRS: >45 mL/min Normal 70-79 YRS: >39 mL/min Normal 80 and above >32 mL/min NormalCLASSIFICATION CHOLESTEROL FOR ADULTS CHILDREN/ADOLESCENTS* DESIRABLE: <200 MG/DL <170 MG/DL BORDER-LINE HIGH RISK: 200-239 MG/DL 170-199 MG/DL HIGH RISK: >240 MG/DL >200 MG/DL CLASS. FOR PRIMARY LDL CHOL PREVENTION: LDL CHOL-CHILD/ADOLESCENTS* DESIRABLE: <130 MG/DL <110 MG/DL BORDERLINE-HIGH RISK: 130- 159 MG/DL 110-129 MG/DL HIGH RISK: >160 MG/DL >130 MG/DL *CHILDREN AND ADOLESCENTS REPRESENTS INDIVIDUALA AGED 2-19 YEARS EXCLUSIVE. MCHC 33.0 g/dL 31.0-36.0 [facility] ([facility] NORMAL RANGES Age WBC RBC HGB HCT MCV PLT Adult M 4.1-10.9 4.20-6.30 12.0-18.0 37.0-51.0 80-97 140-440 Adult F 4.1-10.9 4.04-5.48 12.0-18.0 37.0-51.0 80-97 140-440 0 -1 Yr 5.0-20.0 3.9-5.9 15-18 MV: 44 MV: 91 MV: 277 2-9 Yr. 6.0-17.0 3.8-5.4 11-13 MV: 37 MV: 78 MV: 300 10 Yrs. 5.0-13.0 3.8-5.4 12-15 MV: 39 MV: 80 MV: 250 NOTE: * FOR ADULT BLACK MALES AND FEMALES, NORMAL WBC IS 2.9-7.7 K/ML * FOR ADULT BLACK MALES AND FEMALES, NORMAL RBC,HGB, AND HCT IS 5% LESS SOURCE FOR DATA: [employer] DYN 1800 OPERATION MANUAL( AUTOMATED BLOOD COUNTS AND DIFF.) APPENDIX B-3 CHRONIC KIDNEY DISEASE STAGING PER NKF: MALE GFR INTERPRETATION: 20-49 YRS: >60 mL/min Normal 50-59 YRS: >56 mL/min Normal 60-69 YRS: >49 mL/min Normal 70-79 YRS: >42 mL/min Normal 80 and above >35 mL/min Normal FEMALE GRF INTERPRETATION: 20-39 YRS: >60 mL/min Normal 40-49 YRS: >58 mL/min Normal 50-59 YRS: >51 mL/min Normal 60-69 YRS: >45 mL/min Normal 70-79 YRS: >39 mL/min Normal 80 and above >32 mL/min NormalCLASSIFICATION CHOLESTEROL FOR ADULTS CHILDREN/ADOLESCENTS* DESIRABLE: <200 MG/DL <170 MG/DL BORDER-LINE HIGH RISK: 200-239 MG/DL 170-199 MG/DL HIGH RISK: >240 MG/DL >200 MG/DL CLASS. FOR PRIMARY LDL CHOL PREVENTION: LDL CHOL-CHILD/ADOLESCENTS* DESIRABLE: <130 MG/DL <110 MG/DL BORDERLINE-HIGH RISK: 130- 159 MG/DL 110-129 MG/DL HIGH RISK: >160 MG/DL >130 MG/DL *CHILDREN AND ADOLESCENTS REPRESENTS INDIVIDUALA AGED 2-19 YEARS EXCLUSIVE. PLT 494 10E3/uL 140-440 Above high normal [facility] ([facility] NORMAL RANGES Age WBC RBC HGB HCT MCV PLT Adult M 4.1-10.9 4.20-6.30 12.0-18.0 37.0-51.0 80-97 140-440 Adult F 4.1-10.9 4.04-5.48 12.0-18.0 37.0-51.0 80-97 140-440 0 -1 Yr 5.0-20.0 3.9-5.9 15-18 MV: 44 MV: 91 MV: 277 2-9 Yr. 6.0-17.0 3.8-5.4 11-13 MV: 37 MV: 78 MV: 300 10 Yrs. 5.0-13.0 3.8-5.4 12-15 MV: 39 MV: 80 MV: 250 NOTE: * FOR ADULT BLACK MALES AND FEMALES, NORMAL WBC IS 2.9-7.7 K/ML * FOR ADULT BLACK MALES AND FEMALES, NORMAL RBC,HGB, AND HCT IS 5% LESS SOURCE FOR DATA: 23press 1800 OPERATION MANUAL( AUTOMATED BLOOD COUNTS AND DIFF.) APPENDIX B-3 CHRONIC KIDNEY DISEASE STAGING PER NKF: MALE GFR INTERPRETATION: 20-49 YRS: >60 mL/min Normal 50-59 YRS: >56 mL/min Normal 60-69 YRS: >49 mL/min Normal 70-79 YRS: >42 mL/min Normal 80 and above >35 mL/min Normal FEMALE GRF INTERPRETATION: 20-39 YRS: >60 mL/min Normal 40-49 YRS: >58 mL/min Normal 50-59 YRS: >51 mL/min Normal 60-69 YRS: >45 mL/min Normal 70-79 YRS: >39 mL/min Normal 80 and above >32 mL/min NormalCLASSIFICATION CHOLESTEROL FOR ADULTS CHILDREN/ADOLESCENTS* DESIRABLE: <200 MG/DL <170 MG/DL BORDER-LINE HIGH RISK: 200-239 MG/DL 170-199 MG/DL HIGH RISK: >240 MG/DL >200 MG/DL CLASS. FOR PRIMARY LDL CHOL PREVENTION: LDL CHOL-CHILD/ADOLESCENTS* DESIRABLE: <130 MG/DL <110 MG/DL BORDERLINE-HIGH RISK: 130- 159 MG/DL 110-129 MG/DL HIGH RISK: >160 MG/DL >130 MG/DL *CHILDREN AND ADOLESCENTS REPRESENTS INDIVIDUALA AGED 2-19 YEARS EXCLUSIVE. RDW-CV 16.5 % 11.5-14.5 Above high normal [facility] ([facility] NORMAL RANGES Age WBC RBC HGB HCT MCV PLT Adult M 4.1-10.9 4.20-6.30 12.0-18.0 37.0-51.0 80-97 140-440 Adult F 4.1-10.9 4.04-5.48 12.0-18.0 37.0-51.0 80-97 140-440 0 -1 Yr 5.0-20.0 3.9-5.9 15-18 MV: 44 MV: 91 MV: 277 2-9 Yr. 6.0-17.0 3.8-5.4 11-13 MV: 37 MV: 78 MV: 300 10 Yrs. 5.0-13.0 3.8-5.4 12-15 MV: 39 MV: 80 MV: 250 NOTE: * FOR ADULT BLACK MALES AND FEMALES, NORMAL WBC IS 2.9-7.7 K/ML * FOR ADULT BLACK MALES AND FEMALES, NORMAL RBC,HGB, AND HCT IS 5% LESS SOURCE FOR DATA: 23press 1800 OPERATION MANUAL( AUTOMATED BLOOD COUNTS AND DIFF.) APPENDIX B-3 CHRONIC KIDNEY DISEASE STAGING PER NKF: MALE GFR INTERPRETATION: 20-49 YRS: >60 mL/min Normal 50-59 YRS: >56 mL/min Normal 60-69 YRS: >49 mL/min Normal 70-79 YRS: >42 mL/min Normal 80 and above >35 mL/min Normal FEMALE GRF INTERPRETATION: 20-39 YRS: >60 mL/min Normal 40-49 YRS: >58 mL/min Normal 50-59 YRS: >51 mL/min Normal 60-69 YRS: >45 mL/min Normal 70-79 YRS: >39 mL/min Normal 80 and above >32 mL/min NormalCLASSIFICATION CHOLESTEROL FOR ADULTS CHILDREN/ADOLESCENTS* DESIRABLE: <200 MG/DL <170 MG/DL BORDER-LINE HIGH RISK: 200-239 MG/DL 170-199 MG/DL HIGH RISK: >240 MG/DL >200 MG/DL CLASS. FOR PRIMARY LDL CHOL PREVENTION: LDL CHOL-CHILD/ADOLESCENTS* DESIRABLE: <130 MG/DL <110 MG/DL BORDERLINE-HIGH RISK: 130- 159 MG/DL 110-129 MG/DL HIGH RISK: >160 MG/DL >130 MG/DL *CHILDREN AND ADOLESCENTS REPRESENTS INDIVIDUALA AGED 2-19 YEARS EXCLUSIVE. Lym% 19.3 % 10.0-58.5 [facility] ([facility] NORMAL RANGES Age WBC RBC HGB HCT MCV PLT Adult M 4.1-10.9 4.20-6.30 12.0-18.0 37.0-51.0 80-97 140-440 Adult F 4.1-10.9 4.04-5.48 12.0-18.0 37.0-51.0 80-97 140-440 0 -1 Yr 5.0-20.0 3.9-5.9 15-18 MV: 44 MV: 91 MV: 277 2-9 Yr. 6.0-17.0 3.8-5.4 11-13 MV: 37 MV: 78 MV: 300 10 Yrs. 5.0-13.0 3.8-5.4 12-15 MV: 39 MV: 80 MV: 250 NOTE: * FOR ADULT BLACK MALES AND FEMALES, NORMAL WBC IS 2.9-7.7 K/ML * FOR ADULT BLACK MALES AND FEMALES, NORMAL RBC,HGB, AND HCT IS 5% LESS SOURCE FOR DATA: 23press 1800 OPERATION MANUAL( AUTOMATED BLOOD COUNTS AND DIFF.) APPENDIX B-3 CHRONIC KIDNEY DISEASE STAGING PER NKF: MALE GFR INTERPRETATION: 20-49 YRS: >60 mL/min Normal 50-59 YRS: >56 mL/min Normal 60-69 YRS: >49 mL/min Normal 70-79 YRS: >42 mL/min Normal 80 and above >35 mL/min Normal FEMALE GRF INTERPRETATION: 20-39 YRS: >60 mL/min Normal 40-49 YRS: >58 mL/min Normal 50-59 YRS: >51 mL/min Normal 60-69 YRS: >45 mL/min Normal 70-79 YRS: >39 mL/min Normal 80 and above >32 mL/min NormalCLASSIFICATION CHOLESTEROL FOR ADULTS CHILDREN/ADOLESCENTS* DESIRABLE: <200 MG/DL <170 MG/DL BORDER-LINE HIGH RISK: 200-239 MG/DL 170-199 MG/DL HIGH RISK: >240 MG/DL >200 MG/DL CLASS. FOR PRIMARY LDL CHOL PREVENTION: LDL CHOL-CHILD/ADOLESCENTS* DESIRABLE: <130 MG/DL <110 MG/DL BORDERLINE-HIGH RISK: 130- 159 MG/DL 110-129 MG/DL HIGH RISK: >160 MG/DL >130 MG/DL *CHILDREN AND ADOLESCENTS REPRESENTS INDIVIDUALA AGED 2-19 YEARS EXCLUSIVE. MXD% 5.6 % 0.1-24.0 [facility] ([facility] NORMAL RANGES Age WBC RBC HGB HCT MCV PLT Adult M 4.1-10.9 4.20-6.30 12.0-18.0 37.0-51.0 80-97 140-440 Adult F 4.1-10.9 4.04-5.48 12.0-18.0 37.0-51.0 80-97 140-440 0 -1 Yr 5.0-20.0 3.9-5.9 15-18 MV: 44 MV: 91 MV: 277 2-9 Yr. 6.0-17.0 3.8-5.4 11-13 MV: 37 MV: 78 MV: 300 10 Yrs. 5.0-13.0 3.8-5.4 12-15 MV: 39 MV: 80 MV: 250 NOTE: * FOR ADULT BLACK MALES AND FEMALES, NORMAL WBC IS 2.9-7.7 K/ML * FOR ADULT BLACK MALES AND FEMALES, NORMAL RBC,HGB, AND HCT IS 5% LESS SOURCE FOR DATA: [employer] DYN 1800 OPERATION MANUAL( AUTOMATED BLOOD COUNTS AND DIFF.) APPENDIX B-3 CHRONIC KIDNEY DISEASE STAGING PER NKF: MALE GFR INTERPRETATION: 20-49 YRS: >60 mL/min Normal 50-59 YRS: >56 mL/min Normal 60-69 YRS: >49 mL/min Normal 70-79 YRS: >42 mL/min Normal 80 and above >35 mL/min Normal FEMALE GRF INTERPRETATION: 20-39 YRS: >60 mL/min Normal 40-49 YRS: >58 mL/min Normal 50-59 YRS: >51 mL/min Normal 60-69 YRS: >45 mL/min Normal 70-79 YRS: >39 mL/min Normal 80 and above >32 mL/min NormalCLASSIFICATION CHOLESTEROL FOR ADULTS CHILDREN/ADOLESCENTS* DESIRABLE: <200 MG/DL <170 MG/DL BORDER-LINE HIGH RISK: 200-239 MG/DL 170-199 MG/DL HIGH RISK: >240 MG/DL >200 MG/DL CLASS. FOR PRIMARY LDL CHOL PREVENTION: LDL CHOL-CHILD/ADOLESCENTS* DESIRABLE: <130 MG/DL <110 MG/DL BORDERLINE-HIGH RISK: 130- 159 MG/DL 110-129 MG/DL HIGH RISK: >160 MG/DL >130 MG/DL *CHILDREN AND ADOLESCENTS REPRESENTS INDIVIDUALA AGED 2-19 YEARS EXCLUSIVE. Neut% 75.1 % 37.0-92.0 [facility] ([facility] NORMAL RANGES Age WBC RBC HGB HCT MCV PLT Adult M 4.1-10.9 4.20-6.30 12.0-18.0 37.0-51.0 80-97 140-440 Adult F 4.1-10.9 4.04-5.48 12.0-18.0 37.0-51.0 80-97 140-440 0 -1 Yr 5.0-20.0 3.9-5.9 15-18 MV: 44 MV: 91 MV: 277 2-9 Yr. 6.0-17.0 3.8-5.4 11-13 MV: 37 MV: 78 MV: 300 10 Yrs. 5.0-13.0 3.8-5.4 12-15 MV: 39 MV: 80 MV: 250 NOTE: * FOR ADULT BLACK MALES AND FEMALES, NORMAL WBC IS 2.9-7.7 K/ML * FOR ADULT BLACK MALES AND FEMALES, NORMAL RBC,HGB, AND HCT IS 5% LESS SOURCE FOR DATA: 23press 1800 OPERATION MANUAL( AUTOMATED BLOOD COUNTS AND DIFF.) APPENDIX B-3 CHRONIC KIDNEY DISEASE STAGING PER NKF: MALE GFR INTERPRETATION: 20-49 YRS: >60 mL/min Normal 50-59 YRS: >56 mL/min Normal 60-69 YRS: >49 mL/min Normal 70-79 YRS: >42 mL/min Normal 80 and above >35 mL/min Normal FEMALE GRF INTERPRETATION: 20-39 YRS: >60 mL/min Normal 40-49 YRS: >58 mL/min Normal 50-59 YRS: >51 mL/min Normal 60-69 YRS: >45 mL/min Normal 70-79 YRS: >39 mL/min Normal 80 and above >32 mL/min NormalCLASSIFICATION CHOLESTEROL FOR ADULTS CHILDREN/ADOLESCENTS* DESIRABLE: <200 MG/DL <170 MG/DL BORDER-LINE HIGH RISK: 200-239 MG/DL 170-199 MG/DL HIGH RISK: >240 MG/DL >200 MG/DL CLASS. FOR PRIMARY LDL CHOL PREVENTION: LDL CHOL-CHILD/ADOLESCENTS* DESIRABLE: <130 MG/DL <110 MG/DL BORDERLINE-HIGH RISK: 130- 159 MG/DL 110-129 MG/DL HIGH RISK: >160 MG/DL >130 MG/DL *CHILDREN AND ADOLESCENTS REPRESENTS INDIVIDUALA AGED 2-19 YEARS EXCLUSIVE. Lym# 3.1 10E3/uL 0.6-4.1 [facility] ([facility] NORMAL RANGES Age WBC RBC HGB HCT MCV PLT Adult M 4.1-10.9 4.20-6.30 12.0-18.0 37.0-51.0 80-97 140-440 Adult F 4.1-10.9 4.04-5.48 12.0-18.0 37.0-51.0 80-97 140-440 0 -1 Yr 5.0-20.0 3.9-5.9 15-18 MV: 44 MV: 91 MV: 277 2-9 Yr. 6.0-17.0 3.8-5.4 11-13 MV: 37 MV: 78 MV: 300 10 Yrs. 5.0-13.0 3.8-5.4 12-15 MV: 39 MV: 80 MV: 250 NOTE: * FOR ADULT BLACK MALES AND FEMALES, NORMAL WBC IS 2.9-7.7 K/ML * FOR ADULT BLACK MALES AND FEMALES, NORMAL RBC,HGB, AND HCT IS 5% LESS SOURCE FOR DATA: 23press 1800 OPERATION MANUAL( AUTOMATED BLOOD COUNTS AND DIFF.) APPENDIX B-3 CHRONIC KIDNEY DISEASE STAGING PER NKF: MALE GFR INTERPRETATION: 20-49 YRS: >60 mL/min Normal 50-59 YRS: >56 mL/min Normal 60-69 YRS: >49 mL/min Normal 70-79 YRS: >42 mL/min Normal 80 and above >35 mL/min Normal FEMALE GRF INTERPRETATION: 20-39 YRS: >60 mL/min Normal 40-49 YRS: >58 mL/min Normal 50-59 YRS: >51 mL/min Normal 60-69 YRS: >45 mL/min Normal 70-79 YRS: >39 mL/min Normal 80 and above >32 mL/min NormalCLASSIFICATION CHOLESTEROL FOR ADULTS CHILDREN/ADOLESCENTS* DESIRABLE: <200 MG/DL <170 MG/DL BORDER-LINE HIGH RISK: 200-239 MG/DL 170-199 MG/DL HIGH RISK: >240 MG/DL >200 MG/DL CLASS. FOR PRIMARY LDL CHOL PREVENTION: LDL CHOL-CHILD/ADOLESCENTS* DESIRABLE: <130 MG/DL <110 MG/DL BORDERLINE-HIGH RISK: 130- 159 MG/DL 110-129 MG/DL HIGH RISK: >160 MG/DL >130 MG/DL *CHILDREN AND ADOLESCENTS REPRESENTS INDIVIDUALA AGED 2-19 YEARS EXCLUSIVE. Neut# 12.3 % 2.0-7.8 Above high normal [facility] ([facility] NORMAL RANGES Age WBC RBC HGB HCT MCV PLT Adult M 4.1-10.9 4.20-6.30 12.0-18.0 37.0-51.0 80-97 140-440 Adult F 4.1-10.9 4.04-5.48 12.0-18.0 37.0-51.0 80-97 140-440 0 -1 Yr 5.0-20.0 3.9-5.9 15-18 MV: 44 MV: 91 MV: 277 2-9 Yr. 6.0-17.0 3.8-5.4 11-13 MV: 37 MV: 78 MV: 300 10 Yrs. 5.0-13.0 3.8-5.4 12-15 MV: 39 MV: 80 MV: 250 NOTE: * FOR ADULT BLACK MALES AND FEMALES, NORMAL WBC IS 2.9-7.7 K/ML * FOR ADULT BLACK MALES AND FEMALES, NORMAL RBC,HGB, AND HCT IS 5% LESS SOURCE FOR DATA: 23press 1800 OPERATION MANUAL( AUTOMATED BLOOD COUNTS AND DIFF.) APPENDIX B-3 CHRONIC KIDNEY DISEASE STAGING PER NKF: MALE GFR INTERPRETATION: 20-49 YRS: >60 mL/min Normal 50-59 YRS: >56 mL/min Normal 60-69 YRS: >49 mL/min Normal 70-79 YRS: >42 mL/min Normal 80 and above >35 mL/min Normal FEMALE GRF INTERPRETATION: 20-39 YRS: >60 mL/min Normal 40-49 YRS: >58 mL/min Normal 50-59 YRS: >51 mL/min Normal 60-69 YRS: >45 mL/min Normal 70-79 YRS: >39 mL/min Normal 80 and above >32 mL/min NormalCLASSIFICATION CHOLESTEROL FOR ADULTS CHILDREN/ADOLESCENTS* DESIRABLE: <200 MG/DL <170 MG/DL BORDER-LINE HIGH RISK: 200-239 MG/DL 170-199 MG/DL HIGH RISK: >240 MG/DL >200 MG/DL CLASS. FOR PRIMARY LDL CHOL PREVENTION: LDL CHOL-CHILD/ADOLESCENTS* DESIRABLE: <130 MG/DL <110 MG/DL BORDERLINE-HIGH RISK: 130- 159 MG/DL 110-129 MG/DL HIGH RISK: >160 MG/DL >130 MG/DL *CHILDREN AND ADOLESCENTS REPRESENTS INDIVIDUALA AGED 2-19 YEARS EXCLUSIVE. MPV 11.0 fL 9.0-13.0 [facility] ([facility] NORMAL RANGES Age WBC RBC HGB HCT MCV PLT Adult M 4.1-10.9 4.20-6.30 12.0-18.0 37.0-51.0 80-97 140-440 Adult F 4.1-10.9 4.04-5.48 12.0-18.0 37.0-51.0 80-97 140-440 0 -1 Yr 5.0-20.0 3.9-5.9 15-18 MV: 44 MV: 91 MV: 277 2-9 Yr. 6.0-17.0 3.8-5.4 11-13 MV: 37 MV: 78 MV: 300 10 Yrs. 5.0-13.0 3.8-5.4 12-15 MV: 39 MV: 80 MV: 250 NOTE: * FOR ADULT BLACK MALES AND FEMALES, NORMAL WBC IS 2.9-7.7 K/ML * FOR ADULT BLACK MALES AND FEMALES, NORMAL RBC,HGB, AND HCT IS 5% LESS SOURCE FOR DATA: 23press 1800 OPERATION MANUAL( AUTOMATED BLOOD COUNTS AND DIFF.) APPENDIX B-3 CHRONIC KIDNEY DISEASE STAGING PER NKF: MALE GFR INTERPRETATION: 20-49 YRS: >60 mL/min Normal 50-59 YRS: >56 mL/min Normal 60-69 YRS: >49 mL/min Normal 70-79 YRS: >42 mL/min Normal 80 and above >35 mL/min Normal FEMALE GRF INTERPRETATION: 20-39 YRS: >60 mL/min Normal 40-49 YRS: >58 mL/min Normal 50-59 YRS: >51 mL/min Normal 60-69 YRS: >45 mL/min Normal 70-79 YRS: >39 mL/min Normal 80 and above >32 mL/min NormalCLASSIFICATION CHOLESTEROL FOR ADULTS CHILDREN/ADOLESCENTS* DESIRABLE: <200 MG/DL <170 MG/DL BORDER-LINE HIGH RISK: 200-239 MG/DL 170-199 MG/DL HIGH RISK: >240 MG/DL >200 MG/DL CLASS. FOR PRIMARY LDL CHOL PREVENTION: LDL CHOL-CHILD/ADOLESCENTS* DESIRABLE: <130 MG/DL <110 MG/DL BORDERLINE-HIGH RISK: 130- 159 MG/DL 110-129 MG/DL HIGH RISK: >160 MG/DL >130 MG/DL *CHILDREN AND ADOLESCENTS REPRESENTS INDIVIDUALA AGED 2-19 YEARS EXCLUSIVE. MXD# 0.9 10E3/uL 0.0-1.8 [facility] ([facility] NORMAL RANGES Age WBC RBC HGB HCT MCV PLT Adult M 4.1-10.9 4.20-6.30 12.0-18.0 37.0-51.0 80-97 140-440 Adult F 4.1-10.9 4.04-5.48 12.0-18.0 37.0-51.0 80-97 140-440 0 -1 Yr 5.0-20.0 3.9-5.9 15-18 MV: 44 MV: 91 MV: 277 2-9 Yr. 6.0-17.0 3.8-5.4 11-13 MV: 37 MV: 78 MV: 300 10 Yrs. 5.0-13.0 3.8-5.4 12-15 MV: 39 MV: 80 MV: 250 NOTE: * FOR ADULT BLACK MALES AND FEMALES, NORMAL WBC IS 2.9-7.7 K/ML * FOR ADULT BLACK MALES AND FEMALES, NORMAL RBC,HGB, AND HCT IS 5% LESS SOURCE FOR DATA: 23press 1800 OPERATION MANUAL( AUTOMATED BLOOD COUNTS AND DIFF.) APPENDIX B-3 CHRONIC KIDNEY DISEASE STAGING PER NKF: MALE GFR INTERPRETATION: 20-49 YRS: >60 mL/min Normal 50-59 YRS: >56 mL/min Normal 60-69 YRS: >49 mL/min Normal 70-79 YRS: >42 mL/min Normal 80 and above >35 mL/min Normal FEMALE GRF INTERPRETATION: 20-39 YRS: >60 mL/min Normal 40-49 YRS: >58 mL/min Normal 50-59 YRS: >51 mL/min Normal 60-69 YRS: >45 mL/min Normal 70-79 YRS: >39 mL/min Normal 80 and above >32 mL/min NormalCLASSIFICATION CHOLESTEROL FOR ADULTS CHILDREN/ADOLESCENTS* DESIRABLE: <200 MG/DL <170 MG/DL BORDER-LINE HIGH RISK: 200-239 MG/DL 170-199 MG/DL HIGH RISK: >240 MG/DL >200 MG/DL CLASS. FOR PRIMARY LDL CHOL PREVENTION: LDL CHOL-CHILD/ADOLESCENTS* DESIRABLE: <130 MG/DL <110 MG/DL BORDERLINE-HIGH RISK: 130- 159 MG/DL 110-129 MG/DL HIGH RISK: >160 MG/DL >130 MG/DL *CHILDREN AND ADOLESCENTS REPRESENTS INDIVIDUALA AGED 2-19 YEARS EXCLUSIVE. ID Date Data Source [id number] 12/01/2020 09:49:00 AM EDT [facility] ([facility] Name Value Range Interpretation Code Description Data Haylee rce(s) Supporting Document(s) Chol 78 mg/dL 0-200 [facility] ([facility] NORMAL RANGES Age WBC RBC HGB HCT MCV PLT Adult M 4.1-10.9 4.20-6.30 12.0-18.0 37.0-51.0 80-97 140-440 Adult F 4.1-10.9 4.04-5.48 12.0-18.0 37.0-51.0 80-97 140-440 0 -1 Yr 5.0-20.0 3.9-5.9 15-18 MV: 44 MV: 91 MV: 277 2-9 Yr. 6.0-17.0 3.8-5.4 11-13 MV: 37 MV: 78 MV: 300 10 Yrs. 5.0-13.0 3.8-5.4 12-15 MV: 39 MV: 80 MV: 250 NOTE: * FOR ADULT BLACK MALES AND FEMALES, NORMAL WBC IS 2.9-7.7 K/ML * FOR ADULT BLACK MALES AND FEMALES, NORMAL RBC,HGB, AND HCT IS 5% LESS SOURCE FOR DATA: 23press 1800 OPERATION MANUAL( AUTOMATED BLOOD COUNTS AND DIFF.) APPENDIX B-3 CHRONIC KIDNEY DISEASE STAGING PER NKF: MALE GFR INTERPRETATION: 20-49 YRS: >60 mL/min Normal 50-59 YRS: >56 mL/min Normal 60-69 YRS: >49 mL/min Normal 70-79 YRS: >42 mL/min Normal 80 and above >35 mL/min Normal FEMALE GRF INTERPRETATION: 20-39 YRS: >60 mL/min Normal 40-49 YRS: >58 mL/min Normal 50-59 YRS: >51 mL/min Normal 60-69 YRS: >45 mL/min Normal 70-79 YRS: >39 mL/min Normal 80 and above >32 mL/min NormalCLASSIFICATION CHOLESTEROL FOR ADULTS CHILDREN/ADOLESCENTS* DESIRABLE: <200 MG/DL <170 MG/DL BORDER-LINE HIGH RISK: 200-239 MG/DL 170-199 MG/DL HIGH RISK: >240 MG/DL >200 MG/DL CLASS. FOR PRIMARY LDL CHOL PREVENTION: LDL CHOL-CHILD/ADOLESCENTS* DESIRABLE: <130 MG/DL <110 MG/DL BORDERLINE-HIGH RISK: 130- 159 MG/DL 110-129 MG/DL HIGH RISK: >160 MG/DL >130 MG/DL *CHILDREN AND ADOLESCENTS REPRESENTS INDIVIDUALA AGED 2-19 YEARS EXCLUSIVE. Trig 142 mg/dL 40-200 [facility] ([facility] NORMAL RANGES Age WBC RBC HGB HCT MCV PLT Adult M 4.1-10.9 4.20-6.30 12.0-18.0 37.0-51.0 80-97 140-440 Adult F 4.1-10.9 4.04-5.48 12.0-18.0 37.0-51.0 80-97 140-440 0 -1 Yr 5.0-20.0 3.9-5.9 15-18 MV: 44 MV: 91 MV: 277 2-9 Yr. 6.0-17.0 3.8-5.4 11-13 MV: 37 MV: 78 MV: 300 10 Yrs. 5.0-13.0 3.8-5.4 12-15 MV: 39 MV: 80 MV: 250 NOTE: * FOR ADULT BLACK MALES AND FEMALES, NORMAL WBC IS 2.9-7.7 K/ML * FOR ADULT BLACK MALES AND FEMALES, NORMAL RBC,HGB, AND HCT IS 5% LESS SOURCE FOR DATA: 23press 1800 OPERATION MANUAL( AUTOMATED BLOOD COUNTS AND DIFF.) APPENDIX B-3 CHRONIC KIDNEY DISEASE STAGING PER NKF: MALE GFR INTERPRETATION: 20-49 YRS: >60 mL/min Normal 50-59 YRS: >56 mL/min Normal 60-69 YRS: >49 mL/min Normal 70-79 YRS: >42 mL/min Normal 80 and above >35 mL/min Normal FEMALE GRF INTERPRETATION: 20-39 YRS: >60 mL/min Normal 40-49 YRS: >58 mL/min Normal 50-59 YRS: >51 mL/min Normal 60-69 YRS: >45 mL/min Normal 70-79 YRS: >39 mL/min Normal 80 and above >32 mL/min NormalCLASSIFICATION CHOLESTEROL FOR ADULTS CHILDREN/ADOLESCENTS* DESIRABLE: <200 MG/DL <170 MG/DL BORDER-LINE HIGH RISK: 200-239 MG/DL 170-199 MG/DL HIGH RISK: >240 MG/DL >200 MG/DL CLASS. FOR PRIMARY LDL CHOL PREVENTION: LDL CHOL-CHILD/ADOLESCENTS* DESIRABLE: <130 MG/DL <110 MG/DL BORDERLINE-HIGH RISK: 130- 159 MG/DL 110-129 MG/DL HIGH RISK: >160 MG/DL >130 MG/DL *CHILDREN AND ADOLESCENTS REPRESENTS INDIVIDUALA AGED 2-19 YEARS EXCLUSIVE. Cholesterol in HDL [Mass/volume] in Serum or Plasma 36 mg/dL 45-65 Below low normal [facility] ([facility] ) NORMAL RANGES Age WBC RBC HGB HCT MCV PLT Adult M 4.1-10.9 4.20-6.30 12.0-18.0 37.0-51.0 80-97 140-440 Adult F 4.1-10.9 4.04-5.48 12.0-18.0 37.0-51.0 80-97 140-440 0 -1 Yr 5.0-20.0 3.9-5.9 15-18 MV: 44 MV: 91 MV: 277 2-9 Yr. 6.0-17.0 3.8-5.4 11-13 MV: 37 MV: 78 MV: 300 10 Yrs. 5.0-13.0 3.8-5.4 12-15 MV: 39 MV: 80 MV: 250 NOTE: * FOR ADULT BLACK MALES AND FEMALES, NORMAL WBC IS 2.9-7.7 K/ML * FOR ADULT BLACK MALES AND FEMALES, NORMAL RBC,HGB, AND HCT IS 5% LESS SOURCE FOR DATA: 23press 1800 OPERATION MANUAL( AUTOMATED BLOOD COUNTS AND DIFF.) APPENDIX B-3 CHRONIC KIDNEY DISEASE STAGING PER NKF: MALE GFR INTERPRETATION: 20-49 YRS: >60 mL/min Normal 50-59 YRS: >56 mL/min Normal 60-69 YRS: >49 mL/min Normal 70-79 YRS: >42 mL/min Normal 80 and above >35 mL/min Normal FEMALE GRF INTERPRETATION: 20-39 YRS: >60 mL/min Normal 40-49 YRS: >58 mL/min Normal 50-59 YRS: >51 mL/min Normal 60-69 YRS: >45 mL/min Normal 70-79 YRS: >39 mL/min Normal 80 and above >32 mL/min NormalCLASSIFICATION CHOLESTEROL FOR ADULTS CHILDREN/ADOLESCENTS* DESIRABLE: <200 MG/DL <170 MG/DL BORDER-LINE HIGH RISK: 200-239 MG/DL 170-199 MG/DL HIGH RISK: >240 MG/DL >200 MG/DL CLASS. FOR PRIMARY LDL CHOL PREVENTION: LDL CHOL-CHILD/ADOLESCENTS* DESIRABLE: <130 MG/DL <110 MG/DL BORDERLINE-HIGH RISK: 130- 159 MG/DL 110-129 MG/DL HIGH RISK: >160 MG/DL >130 MG/DL *CHILDREN AND ADOLESCENTS REPRESENTS INDIVIDUALA AGED 2-19 YEARS EXCLUSIVE. LDL_C 14 Calc 75-129 Below low normal [facility] ( [facility] NORMAL RANGES Age WBC RBC HGB HCT MCV PLT Adult M 4.1-10.9 4.20-6.30 12.0-18.0 37.0-51.0 80-97 140-440 Adult F 4.1-10.9 4.04-5.48 12.0-18.0 37.0-51.0 80-97 140-440 0 -1 Yr 5.0-20.0 3.9-5.9 15-18 MV: 44 MV: 91 MV: 277 2-9 Yr. 6.0-17.0 3.8-5.4 11-13 MV: 37 MV: 78 MV: 300 10 Yrs. 5.0-13.0 3.8-5.4 12-15 MV: 39 MV: 80 MV: 250 NOTE: * FOR ADULT BLACK MALES AND FEMALES, NORMAL WBC IS 2.9-7.7 K/ML * FOR ADULT BLACK MALES AND FEMALES, NORMAL RBC,HGB, AND HCT IS 5% LESS SOURCE FOR DATA: 23press 1800 OPERATION MANUAL( AUTOMATED BLOOD COUNTS AND DIFF.) APPENDIX B-3 CHRONIC KIDNEY DISEASE STAGING PER NKF: MALE GFR INTERPRETATION: 20-49 YRS: >60 mL/min Normal 50-59 YRS: >56 mL/min Normal 60-69 YRS: >49 mL/min Normal 70-79 YRS: >42 mL/min Normal 80 and above >35 mL/min Normal FEMALE GRF INTERPRETATION: 20-39 YRS: >60 mL/min Normal 40-49 YRS: >58 mL/min Normal 50-59 YRS: >51 mL/min Normal 60-69 YRS: >45 mL/min Normal 70-79 YRS: >39 mL/min Normal 80 and above >32 mL/min NormalCLASSIFICATION CHOLESTEROL FOR ADULTS CHILDREN/ADOLESCENTS* DESIRABLE: <200 MG/DL <170 MG/DL BORDER-LINE HIGH RISK: 200-239 MG/DL 170-199 MG/DL HIGH RISK: >240 MG/DL >200 MG/DL CLASS. FOR PRIMARY LDL CHOL PREVENTION: LDL CHOL-CHILD/ADOLESCENTS* DESIRABLE: <130 MG/DL <110 MG/DL BORDERLINE-HIGH RISK: 130- 159 MG/DL 110-129 MG/DL HIGH RISK: >160 MG/DL >130 MG/DL *CHILDREN AND ADOLESCENTS REPRESENTS INDIVIDUALA AGED 2-19 YEARS EXCLUSIVE. Cho/HDL Ratio 2.2 CALC [facility] ([facility] NORMAL RANGES Age WBC RBC HGB HCT MCV PLT Adult M 4.1-10.9 4.20-6.30 12.0-18.0 37.0-51.0 80-97 140-440 Adult F 4.1-10.9 4.04-5.48 12.0-18.0 37.0-51.0 80-97 140-440 0 -1 Yr 5.0-20.0 3.9-5.9 15-18 MV: 44 MV: 91 MV: 277 2-9 Yr. 6.0-17.0 3.8-5.4 11-13 MV: 37 MV: 78 MV: 300 10 Yrs. 5.0-13.0 3.8-5.4 12-15 MV: 39 MV: 80 MV: 250 NOTE: * FOR ADULT BLACK MALES AND FEMALES, NORMAL WBC IS 2.9-7.7 K/ML * FOR ADULT BLACK MALES AND FEMALES, NORMAL RBC,HGB, AND HCT IS 5% LESS SOURCE FOR DATA: 23press 1800 OPERATION MANUAL( AUTOMATED BLOOD COUNTS AND DIFF.) APPENDIX B-3 CHRONIC KIDNEY DISEASE STAGING PER NKF: MALE GFR INTERPRETATION: 20-49 YRS: >60 mL/min Normal 50-59 YRS: >56 mL/min Normal 60-69 YRS: >49 mL/min Normal 70-79 YRS: >42 mL/min Normal 80 and above >35 mL/min Normal FEMALE GRF INTERPRETATION: 20-39 YRS: >60 mL/min Normal 40-49 YRS: >58 mL/min Normal 50-59 YRS: >51 mL/min Normal 60-69 YRS: >45 mL/min Normal 70-79 YRS: >39 mL/min Normal 80 and above >32 mL/min NormalCLASSIFICATION CHOLESTEROL FOR ADULTS CHILDREN/ADOLESCENTS* DESIRABLE: <200 MG/DL <170 MG/DL BORDER-LINE HIGH RISK: 200-239 MG/DL 170-199 MG/DL HIGH RISK: >240 MG/DL >200 MG/DL CLASS. FOR PRIMARY LDL CHOL PREVENTION: LDL CHOL-CHILD/ADOLESCENTS* DESIRABLE: <130 MG/DL <110 MG/DL BORDERLINE-HIGH RISK: 130- 159 MG/DL 110-129 MG/DL HIGH RISK: >160 MG/DL >130 MG/DL *CHILDREN AND ADOLESCENTS REPRESENTS INDIVIDUALA AGED 2-19 YEARS EXCLUSIVE. ID Date Data Source [id number] 12/01/2020 09:49:00 AM EDT [facility] ([facility] Name Value Range Interpretation Code Description Data Haylee rce(s) Supporting Document(s) Creatine kinase [Enzymatic activity/volume] in Serum or Plasma 137 U/L 26-192 [facility] ([facility] NORMAL RANGES Age WBC RBC HGB HCT MCV PLT Adult M 4.1-10.9 4.20-6.30 12.0-18.0 37.0-51.0 80-97 140-440 Adult F 4.1-10.9 4.04-5.48 12.0-18.0 37.0-51.0 80-97 140-440 0 -1 Yr 5.0-20.0 3.9-5.9 15-18 MV: 44 MV: 91 MV: 277 2-9 Yr. 6.0-17.0 3.8-5.4 11-13 MV: 37 MV: 78 MV: 300 10 Yrs. 5.0-13.0 3.8-5.4 12-15 MV: 39 MV: 80 MV: 250 NOTE: * FOR ADULT BLACK MALES AND FEMALES, NORMAL WBC IS 2.9-7.7 K/ML * FOR ADULT BLACK MALES AND FEMALES, NORMAL RBC,HGB, AND HCT IS 5% LESS SOURCE FOR DATA: 23press 1800 OPERATION MANUAL( AUTOMATED BLOOD COUNTS AND DIFF.) APPENDIX B-3 CHRONIC KIDNEY DISEASE STAGING PER NKF: MALE GFR INTERPRETATION: 20-49 YRS: >60 mL/min Normal 50-59 YRS: >56 mL/min Normal 60-69 YRS: >49 mL/min Normal 70-79 YRS: >42 mL/min Normal 80 and above >35 mL/min Normal FEMALE GRF INTERPRETATION: 20-39 YRS: >60 mL/min Normal 40-49 YRS: >58 mL/min Normal 50-59 YRS: >51 mL/min Normal 60-69 YRS: >45 mL/min Normal 70-79 YRS: >39 mL/min Normal 80 and above >32 mL/min NormalCLASSIFICATION CHOLESTEROL FOR ADULTS CHILDREN/ADOLESCENTS* DESIRABLE: <200 MG/DL <170 MG/DL BORDER-LINE HIGH RISK: 200-239 MG/DL 170-199 MG/DL HIGH RISK: >240 MG/DL >200 MG/DL CLASS. FOR PRIMARY LDL CHOL PREVENTION: LDL CHOL-CHILD/ADOLESCENTS* DESIRABLE: <130 MG/DL <110 MG/DL BORDERLINE-HIGH RISK: 130-159 MG/DL 110-129 MG/DL HIGH RISK: >160 MG/DL >130 MG/DL *CHILDREN AND ADOLESCENTS REPRESENTS INDIVIDUALA AGED 2-19 YEARS EXCLUSIVE. ID Date Data Source [id number] 12/01/2020 09:49:00 AM EDT [facility] ([facility] Name Value Range Interpretation Code Description Data Haylee rce(s) Supporting Document(s) Glu 84 mg/dL 70-110 [facility] NORMAL RANGES Age WBC RBC HGB HCT MCV PLT Adult M 4.1-10.9 4.20-6.30 12.0-18.0 37.0-51.0 80-97 140-440 Adult F 4.1-10.9 4.04-5.48 12.0-18.0 37.0-51.0 80-97 140-440 0 -1 Yr 5.0-20.0 3.9-5.9 15-18 MV: 44 MV: 91 MV: 277 2-9 Yr. 6.0-17.0 3.8-5.4 11-13 MV: 37 MV: 78 MV: 300 10 Yrs. 5.0-13.0 3.8-5.4 12-15 MV: 39 MV: 80 MV: 250 NOTE: * FOR ADULT BLACK MALES AND FEMALES, NORMAL WBC IS 2.9-7.7 K/ML * FOR ADULT BLACK MALES AND FEMALES, NORMAL RBC,HGB, AND HCT IS 5% LESS SOURCE FOR DATA: 23press 1800 OPERATION MANUAL( AUTOMATED BLOOD COUNTS AND DIFF.) APPENDIX B-3 CHRONIC KIDNEY DISEASE STAGING PER NKF: MALE GFR INTERPRETATION: 20-49 YRS: >60 mL/min Normal 50-59 YRS: >56 mL/min Normal 60-69 YRS: >49 mL/min Normal 70-79 YRS: >42 mL/min Normal 80 and above >35 mL/min Normal FEMALE GRF INTERPRETATION: 20-39 YRS: >60 mL/min Normal 40-49 YRS: >58 mL/min Normal 50-59 YRS: >51 mL/min Normal 60-69 YRS: >45 mL/min Normal 70-79 YRS: >39 mL/min Normal 80 and above >32 mL/min NormalCLASSIFICATION CHOLESTEROL FOR ADULTS CHILDREN/ADOLESCENTS* DESIRABLE: <200 MG/DL <170 MG/DL BORDER-LINE HIGH RISK: 200-239 MG/DL 170-199 MG/DL HIGH RISK: >240 MG/DL >200 MG/DL CLASS. FOR PRIMARY LDL CHOL PREVENTION: LDL CHOL-CHILD/ADOLESCENTS* DESIRABLE: <130 MG/DL <110 MG/DL BORDERLINE-HIGH RISK: 130-159 MG/DL 110-129 MG/DL HIGH RISK: >160 MG/DL >130 MG/DL *CHILDREN AND ADOLESCENTS REPRESENTS INDIVIDUALA AGED 2-19 YEARS EXCLUSIVE. BUN 33 mg/dL 8-23 Above high normal [facility] ([facility] NORMAL RANGES Age WBC RBC HGB HCT MCV PLT Adult M 4.1-10.9 4.20-6.30 12.0-18.0 37.0-51.0 80-97 140-440 Adult F 4.1-10.9 4.04-5.48 12.0-18.0 37.0-51.0 80-97 140-440 0 -1 Yr 5.0-20.0 3.9-5.9 15-18 MV: 44 MV: 91 MV: 277 2-9 Yr. 6.0-17.0 3.8-5.4 11-13 MV: 37 MV: 78 MV: 300 10 Yrs. 5.0-13.0 3.8-5.4 12-15 MV: 39 MV: 80 MV: 250 NOTE: * FOR ADULT BLACK MALES AND FEMALES, NORMAL WBC IS 2.9-7.7 K/ML * FOR ADULT BLACK MALES AND FEMALES, NORMAL RBC,HGB, AND HCT IS 5% LESS SOURCE FOR DATA: 23press 1800 OPERATION MANUAL( AUTOMATED BLOOD COUNTS AND DIFF.) APPENDIX B-3 CHRONIC KIDNEY DISEASE STAGING PER NKF: MALE GFR INTERPRETATION: 20-49 YRS: >60 mL/min Normal 50-59 YRS: >56 mL/min Normal 60-69 YRS: >49 mL/min Normal 70-79 YRS: >42 mL/min Normal 80 and above >35 mL/min Normal FEMALE GRF INTERPRETATION: 20-39 YRS: >60 mL/min Normal 40-49 YRS: >58 mL/min Normal 50-59 YRS: >51 mL/min Normal 60-69 YRS: >45 mL/min Normal 70-79 YRS: >39 mL/min Normal 80 and above >32 mL/min NormalCLASSIFICATION CHOLESTEROL FOR ADULTS CHILDREN/ADOLESCENTS* DESIRABLE: <200 MG/DL <170 MG/DL BORDER-LINE HIGH RISK: 200-239 MG/DL 170-199 MG/DL HIGH RISK: >240 MG/DL >200 MG/DL CLASS. FOR PRIMARY LDL CHOL PREVENTION: LDL CHOL-CHILD/ADOLESCENTS* DESIRABLE: <130 MG/DL <110 MG/DL BORDERLINE-HIGH RISK: 130-159 MG/DL 110-129 MG/DL HIGH RISK: >160 MG/DL >130 MG/DL *CHILDREN AND ADOLESCENTS REPRESENTS INDIVIDUALA AGED 2-19 YEARS EXCLUSIVE. Creat 1.8 mg/dL 0.5-1.0 Above high normal [facility] ([facility] NORMAL RANGES Age WBC RBC HGB HCT MCV PLT Adult M 4.1-10.9 4.20-6.30 12.0-18.0 37.0-51.0 80-97 140-440 Adult F 4.1-10.9 4.04-5.48 12.0-18.0 37.0-51.0 80-97 140-440 0 -1 Yr 5.0-20.0 3.9-5.9 15-18 MV: 44 MV: 91 MV: 277 2-9 Yr. 6.0-17.0 3.8-5.4 11-13 MV: 37 MV: 78 MV: 300 10 Yrs. 5.0-13.0 3.8-5.4 12-15 MV: 39 MV: 80 MV: 250 NOTE: * FOR ADULT BLACK MALES AND FEMALES, NORMAL WBC IS 2.9-7.7 K/ML * FOR ADULT BLACK MALES AND FEMALES, NORMAL RBC,HGB, AND HCT IS 5% LESS SOURCE FOR DATA: 23press 1800 OPERATION MANUAL( AUTOMATED BLOOD COUNTS AND DIFF.) APPENDIX B-3 CHRONIC KIDNEY DISEASE STAGING PER NKF: MALE GFR INTERPRETATION: 20-49 YRS: >60 mL/min Normal 50-59 YRS: >56 mL/min Normal 60-69 YRS: >49 mL/min Normal 70-79 YRS: >42 mL/min Normal 80 and above >35 mL/min Normal FEMALE GRF INTERPRETATION: 20-39 YRS: >60 mL/min Normal 40-49 YRS: >58 mL/min Normal 50-59 YRS: >51 mL/min Normal 60-69 YRS: >45 mL/min Normal 70-79 YRS: >39 mL/min Normal 80 and above >32 mL/min NormalCLASSIFICATION CHOLESTEROL FOR ADULTS CHILDREN/ADOLESCENTS* DESIRABLE: <200 MG/DL <170 MG/DL BORDER-LINE HIGH RISK: 200-239 MG/DL 170-199 MG/DL HIGH RISK: >240 MG/DL >200 MG/DL CLASS. FOR PRIMARY LDL CHOL PREVENTION: LDL CHOL-CHILD/ADOLESCENTS* DESIRABLE: <130 MG/DL <110 MG/DL BORDERLINE-HIGH RISK: 130-159 MG/DL 110-129 MG/DL HIGH RISK: >160 MG/DL >130 MG/DL *CHILDREN AND ADOLESCENTS REPRESENTS INDIVIDUALA AGED 2-19 YEARS EXCLUSIVE. BUN/Creatinine Ratio 18.8 CALC [facility] ([facility] NORMAL RANGES Age WBC RBC HGB HCT MCV PLT Adult M 4.1-10.9 4.20-6.30 12.0-18.0 37.0-51.0 80-97 140-440 Adult F 4.1-10.9 4.04-5.48 12.0-18.0 37.0-51.0 80-97 140-440 0 -1 Yr 5.0-20.0 3.9-5.9 15-18 MV: 44 MV: 91 MV: 277 2-9 Yr. 6.0-17.0 3.8-5.4 11-13 MV: 37 MV: 78 MV: 300 10 Yrs. 5.0-13.0 3.8-5.4 12-15 MV: 39 MV: 80 MV: 250 NOTE: * FOR ADULT BLACK MALES AND FEMALES, NORMAL WBC IS 2.9-7.7 K/ML * FOR ADULT BLACK MALES AND FEMALES, NORMAL RBC,HGB, AND HCT IS 5% LESS SOURCE FOR DATA: 23press 1800 OPERATION MANUAL( AUTOMATED BLOOD COUNTS AND DIFF.) APPENDIX B-3 CHRONIC KIDNEY DISEASE STAGING PER NKF: MALE GFR INTERPRETATION: 20-49 YRS: >60 mL/min Normal 50-59 YRS: >56 mL/min Normal 60-69 YRS: >49 mL/min Normal 70-79 YRS: >42 mL/min Normal 80 and above >35 mL/min Normal FEMALE GRF INTERPRETATION: 20-39 YRS: >60 mL/min Normal 40-49 YRS: >58 mL/min Normal 50-59 YRS: >51 mL/min Normal 60-69 YRS: >45 mL/min Normal 70-79 YRS: >39 mL/min Normal 80 and above >32 mL/min NormalCLASSIFICATION CHOLESTEROL FOR ADULTS CHILDREN/ADOLESCENTS* DESIRABLE: <200 MG/DL <170 MG/DL BORDER-LINE HIGH RISK: 200-239 MG/DL 170-199 MG/DL HIGH RISK: >240 MG/DL >200 MG/DL CLASS. FOR PRIMARY LDL CHOL PREVENTION: LDL CHOL-CHILD/ADOLESCENTS* DESIRABLE: <130 MG/DL <110 MG/DL BORDERLINE-HIGH RISK: 130-159 MG/DL 110-129 MG/DL HIGH RISK: >160 MG/DL >130 MG/DL *CHILDREN AND ADOLESCENTS REPRESENTS INDIVIDUALA AGED 2-19 YEARS EXCLUSIVE. Na 131 mmol/L 136-145 Below low normal [facility] ( [facility] NORMAL RANGES Age WBC RBC HGB HCT MCV PLT Adult M 4.1-10.9 4.20-6.30 12.0-18.0 37.0-51.0 80-97 140-440 Adult F 4.1-10.9 4.04-5.48 12.0-18.0 37.0-51.0 80-97 140-440 0 -1 Yr 5.0-20.0 3.9-5.9 15-18 MV: 44 MV: 91 MV: 277 2-9 Yr. 6.0-17.0 3.8-5.4 11-13 MV: 37 MV: 78 MV: 300 10 Yrs. 5.0-13.0 3.8-5.4 12-15 MV: 39 MV: 80 MV: 250 NOTE: * FOR ADULT BLACK MALES AND FEMALES, NORMAL WBC IS 2.9-7.7 K/ML * FOR ADULT BLACK MALES AND FEMALES, NORMAL RBC,HGB, AND HCT IS 5% LESS SOURCE FOR DATA: 23press 1800 OPERATION MANUAL( AUTOMATED BLOOD COUNTS AND DIFF.) APPENDIX B-3 CHRONIC KIDNEY DISEASE STAGING PER NKF: MALE GFR INTERPRETATION: 20-49 YRS: >60 mL/min Normal 50-59 YRS: >56 mL/min Normal 60-69 YRS: >49 mL/min Normal 70-79 YRS: >42 mL/min Normal 80 and above >35 mL/min Normal FEMALE GRF INTERPRETATION: 20-39 YRS: >60 mL/min Normal 40-49 YRS: >58 mL/min Normal 50-59 YRS: >51 mL/min Normal 60-69 YRS: >45 mL/min Normal 70-79 YRS: >39 mL/min Normal 80 and above >32 mL/min NormalCLASSIFICATION CHOLESTEROL FOR ADULTS CHILDREN/ADOLESCENTS* DESIRABLE: <200 MG/DL <170 MG/DL BORDER-LINE HIGH RISK: 200-239 MG/DL 170-199 MG/DL HIGH RISK: >240 MG/DL >200 MG/DL CLASS. FOR PRIMARY LDL CHOL PREVENTION: LDL CHOL-CHILD/ADOLESCENTS* DESIRABLE: <130 MG/DL <110 MG/DL BORDERLINE-HIGH RISK: 130-159 MG/DL 110-129 MG/DL HIGH RISK: >160 MG/DL >130 MG/DL *CHILDREN AND ADOLESCENTS REPRESENTS INDIVIDUALA AGED 2-19 YEARS EXCLUSIVE. K 4.6 mmol/L 3.5-5.1 [facility] ([facility] NORMAL RANGES Age WBC RBC HGB HCT MCV PLT Adult M 4.1-10.9 4.20-6.30 12.0-18.0 37.0-51.0 80-97 140-440 Adult F 4.1-10.9 4.04-5.48 12.0-18.0 37.0-51.0 80-97 140-440 0 -1 Yr 5.0-20.0 3.9-5.9 15-18 MV: 44 MV: 91 MV: 277 2-9 Yr. 6.0-17.0 3.8-5.4 11-13 MV: 37 MV: 78 MV: 300 10 Yrs. 5.0-13.0 3.8-5.4 12-15 MV: 39 MV: 80 MV: 250 NOTE: * FOR ADULT BLACK MALES AND FEMALES, NORMAL WBC IS 2.9-7.7 K/ML * FOR ADULT BLACK MALES AND FEMALES, NORMAL RBC,HGB, AND HCT IS 5% LESS SOURCE FOR DATA: 23press 1800 OPERATION MANUAL( AUTOMATED BLOOD COUNTS AND DIFF.) APPENDIX B-3 CHRONIC KIDNEY DISEASE STAGING PER NKF: MALE GFR INTERPRETATION: 20-49 YRS: >60 mL/min Normal 50-59 YRS: >56 mL/min Normal 60-69 YRS: >49 mL/min Normal 70-79 YRS: >42 mL/min Normal 80 and above >35 mL/min Normal FEMALE GRF INTERPRETATION: 20-39 YRS: >60 mL/min Normal 40-49 YRS: >58 mL/min Normal 50-59 YRS: >51 mL/min Normal 60-69 YRS: >45 mL/min Normal 70-79 YRS: >39 mL/min Normal 80 and above >32 mL/min NormalCLASSIFICATION CHOLESTEROL FOR ADULTS CHILDREN/ADOLESCENTS* DESIRABLE: <200 MG/DL <170 MG/DL BORDER-LINE HIGH RISK: 200-239 MG/DL 170-199 MG/DL HIGH RISK: >240 MG/DL >200 MG/DL CLASS. FOR PRIMARY LDL CHOL PREVENTION: LDL CHOL-CHILD/ADOLESCENTS* DESIRABLE: <130 MG/DL <110 MG/DL BORDERLINE-HIGH RISK: 130-159 MG/DL 110-129 MG/DL HIGH RISK: >160 MG/DL >130 MG/DL *CHILDREN AND ADOLESCENTS REPRESENTS INDIVIDUALA AGED 2-19 YEARS EXCLUSIVE. CL 93.7 mmol/L 98.0-107.0 Below low normal [facility] ([facility] NORMAL RANGES Age WBC RBC HGB HCT MCV PLT Adult M 4.1-10.9 4.20-6.30 12.0-18.0 37.0-51.0 80-97 140-440 Adult F 4.1-10.9 4.04-5.48 12.0-18.0 37.0-51.0 80-97 140-440 0 -1 Yr 5.0-20.0 3.9-5.9 15-18 MV: 44 MV: 91 MV: 277 2-9 Yr. 6.0-17.0 3.8-5.4 11-13 MV: 37 MV: 78 MV: 300 10 Yrs. 5.0-13.0 3.8-5.4 12-15 MV: 39 MV: 80 MV: 250 NOTE: * FOR ADULT BLACK MALES AND FEMALES, NORMAL WBC IS 2.9-7.7 K/ML * FOR ADULT BLACK MALES AND FEMALES, NORMAL RBC,HGB, AND HCT IS 5% LESS SOURCE FOR DATA: [employer] DYN 1800 OPERATION MANUAL( AUTOMATED BLOOD COUNTS AND DIFF.) APPENDIX B-3 CHRONIC KIDNEY DISEASE STAGING PER NKF: MALE GFR INTERPRETATION: 20-49 YRS: >60 mL/min Normal 50-59 YRS: >56 mL/min Normal 60-69 YRS: >49 mL/min Normal 70-79 YRS: >42 mL/min Normal 80 and above >35 mL/min Normal FEMALE GRF INTERPRETATION: 20-39 YRS: >60 mL/min Normal 40-49 YRS: >58 mL/min Normal 50-59 YRS: >51 mL/min Normal 60-69 YRS: >45 mL/min Normal 70-79 YRS: >39 mL/min Normal 80 and above >32 mL/min NormalCLASSIFICATION CHOLESTEROL FOR ADULTS CHILDREN/ADOLESCENTS* DESIRABLE: <200 MG/DL <170 MG/DL BORDER-LINE HIGH RISK: 200-239 MG/DL 170-199 MG/DL HIGH RISK: >240 MG/DL >200 MG/DL CLASS. FOR PRIMARY LDL CHOL PREVENTION: LDL CHOL-CHILD/ADOLESCENTS* DESIRABLE: <130 MG/DL <110 MG/DL BORDERLINE-HIGH RISK: 130-159 MG/DL 110-129 MG/DL HIGH RISK: >160 MG/DL >130 MG/DL *CHILDREN AND ADOLESCENTS REPRESENTS INDIVIDUALA AGED 2-19 YEARS EXCLUSIVE. Co2 23.2 mmol/L 22.0-29.0 [facility] ([facility] NORMAL RANGES Age WBC RBC HGB HCT MCV PLT Adult M 4.1-10.9 4.20-6.30 12.0-18.0 37.0-51.0 80-97 140-440 Adult F 4.1-10.9 4.04-5.48 12.0-18.0 37.0-51.0 80-97 140-440 0 -1 Yr 5.0-20.0 3.9-5.9 15-18 MV: 44 MV: 91 MV: 277 2-9 Yr. 6.0-17.0 3.8-5.4 11-13 MV: 37 MV: 78 MV: 300 10 Yrs. 5.0-13.0 3.8-5.4 12-15 MV: 39 MV: 80 MV: 250 NOTE: * FOR ADULT BLACK MALES AND FEMALES, NORMAL WBC IS 2.9-7.7 K/ML * FOR ADULT BLACK MALES AND FEMALES, NORMAL RBC,HGB, AND HCT IS 5% LESS SOURCE FOR DATA: 23press 1800 OPERATION MANUAL( AUTOMATED BLOOD COUNTS AND DIFF.) APPENDIX B-3 CHRONIC KIDNEY DISEASE STAGING PER NKF: MALE GFR INTERPRETATION: 20-49 YRS: >60 mL/min Normal 50-59 YRS: >56 mL/min Normal 60-69 YRS: >49 mL/min Normal 70-79 YRS: >42 mL/min Normal 80 and above >35 mL/min Normal FEMALE GRF INTERPRETATION: 20-39 YRS: >60 mL/min Normal 40-49 YRS: >58 mL/min Normal 50-59 YRS: >51 mL/min Normal 60-69 YRS: >45 mL/min Normal 70-79 YRS: >39 mL/min Normal 80 and above >32 mL/min NormalCLASSIFICATION CHOLESTEROL FOR ADULTS CHILDREN/ADOLESCENTS* DESIRABLE: <200 MG/DL <170 MG/DL BORDER-LINE HIGH RISK: 200-239 MG/DL 170-199 MG/DL HIGH RISK: >240 MG/DL >200 MG/DL CLASS. FOR PRIMARY LDL CHOL PREVENTION: LDL CHOL-CHILD/ADOLESCENTS* DESIRABLE: <130 MG/DL <110 MG/DL BORDERLINE-HIGH RISK: 130-159 MG/DL 110-129 MG/DL HIGH RISK: >160 MG/DL >130 MG/DL *CHILDREN AND ADOLESCENTS REPRESENTS INDIVIDUALA AGED 2-19 YEARS EXCLUSIVE. CA 8.7 mg/dL 8.6-10.2 [facility] ([facility] NORMAL RANGES Age WBC RBC HGB HCT MCV PLT Adult M 4.1-10.9 4.20-6.30 12.0-18.0 37.0-51.0 80-97 140-440 Adult F 4.1-10.9 4.04-5.48 12.0-18.0 37.0-51.0 80-97 140-440 0 -1 Yr 5.0-20.0 3.9-5.9 15-18 MV: 44 MV: 91 MV: 277 2-9 Yr. 6.0-17.0 3.8-5.4 11-13 MV: 37 MV: 78 MV: 300 10 Yrs. 5.0-13.0 3.8-5.4 12-15 MV: 39 MV: 80 MV: 250 NOTE: * FOR ADULT BLACK MALES AND FEMALES, NORMAL WBC IS 2.9-7.7 K/ML * FOR ADULT BLACK MALES AND FEMALES, NORMAL RBC,HGB, AND HCT IS 5% LESS SOURCE FOR DATA: 23press 1800 OPERATION MANUAL( AUTOMATED BLOOD COUNTS AND DIFF.) APPENDIX B-3 CHRONIC KIDNEY DISEASE STAGING PER NKF: MALE GFR INTERPRETATION: 20-49 YRS: >60 mL/min Normal 50-59 YRS: >56 mL/min Normal 60-69 YRS: >49 mL/min Normal 70-79 YRS: >42 mL/min Normal 80 and above >35 mL/min Normal FEMALE GRF INTERPRETATION: 20-39 YRS: >60 mL/min Normal 40-49 YRS: >58 mL/min Normal 50-59 YRS: >51 mL/min Normal 60-69 YRS: >45 mL/min Normal 70-79 YRS: >39 mL/min Normal 80 and above >32 mL/min NormalCLASSIFICATION CHOLESTEROL FOR ADULTS CHILDREN/ADOLESCENTS* DESIRABLE: <200 MG/DL <170 MG/DL BORDER-LINE HIGH RISK: 200-239 MG/DL 170-199 MG/DL HIGH RISK: >240 MG/DL >200 MG/DL CLASS. FOR PRIMARY LDL CHOL PREVENTION: LDL CHOL-CHILD/ADOLESCENTS* DESIRABLE: <130 MG/DL <110 MG/DL BORDERLINE-HIGH RISK: 130-159 MG/DL 110-129 MG/DL HIGH RISK: >160 MG/DL >130 MG/DL *CHILDREN AND ADOLESCENTS REPRESENTS INDIVIDUALA AGED 2-19 YEARS EXCLUSIVE. TP 5.9 g/dL 6.6-8.7 Below low normal [facility] ( [facility] NORMAL RANGES Age WBC RBC HGB HCT MCV PLT Adult M 4.1-10.9 4.20-6.30 12.0-18.0 37.0-51.0 80-97 140-440 Adult F 4.1-10.9 4.04-5.48 12.0-18.0 37.0-51.0 80-97 140-440 0 -1 Yr 5.0-20.0 3.9-5.9 15-18 MV: 44 MV: 91 MV: 277 2-9 Yr. 6.0-17.0 3.8-5.4 11-13 MV: 37 MV: 78 MV: 300 10 Yrs. 5.0-13.0 3.8-5.4 12-15 MV: 39 MV: 80 MV: 250 NOTE: * FOR ADULT BLACK MALES AND FEMALES, NORMAL WBC IS 2.9-7.7 K/ML * FOR ADULT BLACK MALES AND FEMALES, NORMAL RBC,HGB, AND HCT IS 5% LESS SOURCE FOR DATA: 23press 1800 OPERATION MANUAL( AUTOMATED BLOOD COUNTS AND DIFF.) APPENDIX B-3 CHRONIC KIDNEY DISEASE STAGING PER NKF: MALE GFR INTERPRETATION: 20-49 YRS: >60 mL/min Normal 50-59 YRS: >56 mL/min Normal 60-69 YRS: >49 mL/min Normal 70-79 YRS: >42 mL/min Normal 80 and above >35 mL/min Normal FEMALE GRF INTERPRETATION: 20-39 YRS: >60 mL/min Normal 40-49 YRS: >58 mL/min Normal 50-59 YRS: >51 mL/min Normal 60-69 YRS: >45 mL/min Normal 70-79 YRS: >39 mL/min Normal 80 and above >32 mL/min NormalCLASSIFICATION CHOLESTEROL FOR ADULTS CHILDREN/ADOLESCENTS* DESIRABLE: <200 MG/DL <170 MG/DL BORDER-LINE HIGH RISK: 200-239 MG/DL 170-199 MG/DL HIGH RISK: >240 MG/DL >200 MG/DL CLASS. FOR PRIMARY LDL CHOL PREVENTION: LDL CHOL-CHILD/ADOLESCENTS* DESIRABLE: <130 MG/DL <110 MG/DL BORDERLINE-HIGH RISK: 130-159 MG/DL 110-129 MG/DL HIGH RISK: >160 MG/DL >130 MG/DL *CHILDREN AND ADOLESCENTS REPRESENTS INDIVIDUALA AGED 2-19 YEARS EXCLUSIVE. A/G Ratio 1.5 [facility] ([facility] NORMAL RANGES Age WBC RBC HGB HCT MCV PLT Adult M 4.1-10.9 4.20-6.30 12.0-18.0 37.0-51.0 80-97 140-440 Adult F 4.1-10.9 4.04-5.48 12.0-18.0 37.0-51.0 80-97 140-440 0 -1 Yr 5.0-20.0 3.9-5.9 15-18 MV: 44 MV: 91 MV: 277 2-9 Yr. 6.0-17.0 3.8-5.4 11-13 MV: 37 MV: 78 MV: 300 10 Yrs. 5.0-13.0 3.8-5.4 12-15 MV: 39 MV: 80 MV: 250 NOTE: * FOR ADULT BLACK MALES AND FEMALES, NORMAL WBC IS 2.9-7.7 K/ML * FOR ADULT BLACK MALES AND FEMALES, NORMAL RBC,HGB, AND HCT IS 5% LESS SOURCE FOR DATA: 23press 1800 OPERATION MANUAL( AUTOMATED BLOOD COUNTS AND DIFF.) APPENDIX B-3 CHRONIC KIDNEY DISEASE STAGING PER NKF: MALE GFR INTERPRETATION: 20-49 YRS: >60 mL/min Normal 50-59 YRS: >56 mL/min Normal 60-69 YRS: >49 mL/min Normal 70-79 YRS: >42 mL/min Normal 80 and above >35 mL/min Normal FEMALE GRF INTERPRETATION: 20-39 YRS: >60 mL/min Normal 40-49 YRS: >58 mL/min Normal 50-59 YRS: >51 mL/min Normal 60-69 YRS: >45 mL/min Normal 70-79 YRS: >39 mL/min Normal 80 and above >32 mL/min NormalCLASSIFICATION CHOLESTEROL FOR ADULTS CHILDREN/ADOLESCENTS* DESIRABLE: <200 MG/DL <170 MG/DL BORDER-LINE HIGH RISK: 200-239 MG/DL 170-199 MG/DL HIGH RISK: >240 MG/DL >200 MG/DL CLASS. FOR PRIMARY LDL CHOL PREVENTION: LDL CHOL-CHILD/ADOLESCENTS* DESIRABLE: <130 MG/DL <110 MG/DL BORDERLINE-HIGH RISK: 130-159 MG/DL 110-129 MG/DL HIGH RISK: >160 MG/DL >130 MG/DL *CHILDREN AND ADOLESCENTS REPRESENTS INDIVIDUALA AGED 2-19 YEARS EXCLUSIVE. Alb 3.5 g/dL 3.4-4.8 [facility] NORMAL RANGES Age WBC RBC HGB HCT MCV PLT Adult M 4.1-10.9 4.20-6.30 12.0-18.0 37.0-51.0 80-97 140-440 Adult F 4.1-10.9 4.04-5.48 12.0-18.0 37.0-51.0 80-97 140-440 0 -1 Yr 5.0-20.0 3.9-5.9 15-18 MV: 44 MV: 91 MV: 277 2-9 Yr. 6.0-17.0 3.8-5.4 11-13 MV: 37 MV: 78 MV: 300 10 Yrs. 5.0-13.0 3.8-5.4 12-15 MV: 39 MV: 80 MV: 250 NOTE: * FOR ADULT BLACK MALES AND FEMALES, NORMAL WBC IS 2.9-7.7 K/ML * FOR ADULT BLACK MALES AND FEMALES, NORMAL RBC,HGB, AND HCT IS 5% LESS SOURCE FOR DATA: 23press 1800 OPERATION MANUAL( AUTOMATED BLOOD COUNTS AND DIFF.) APPENDIX B-3 CHRONIC KIDNEY DISEASE STAGING PER NKF: MALE GFR INTERPRETATION: 20-49 YRS: >60 mL/min Normal 50-59 YRS: >56 mL/min Normal 60-69 YRS: >49 mL/min Normal 70-79 YRS: >42 mL/min Normal 80 and above >35 mL/min Normal FEMALE GRF INTERPRETATION: 20-39 YRS: >60 mL/min Normal 40-49 YRS: >58 mL/min Normal 50-59 YRS: >51 mL/min Normal 60-69 YRS: >45 mL/min Normal 70-79 YRS: >39 mL/min Normal 80 and above >32 mL/min NormalCLASSIFICATION CHOLESTEROL FOR ADULTS CHILDREN/ADOLESCENTS* DESIRABLE: <200 MG/DL <170 MG/DL BORDER-LINE HIGH RISK: 200-239 MG/DL 170-199 MG/DL HIGH RISK: >240 MG/DL >200 MG/DL CLASS. FOR PRIMARY LDL CHOL PREVENTION: LDL CHOL-CHILD/ADOLESCENTS* DESIRABLE: <130 MG/DL <110 MG/DL BORDERLINE-HIGH RISK: 130-159 MG/DL 110-129 MG/DL HIGH RISK: >160 MG/DL >130 MG/DL *CHILDREN AND ADOLESCENTS REPRESENTS INDIVIDUALA AGED 2-19 YEARS EXCLUSIVE. Globulin 2.3 [facility] ([facility] NORMAL RANGES Age WBC RBC HGB HCT MCV PLT Adult M 4.1-10.9 4.20-6.30 12.0-18.0 37.0-51.0 80-97 140-440 Adult F 4.1-10.9 4.04-5.48 12.0-18.0 37.0-51.0 80-97 140-440 0 -1 Yr 5.0-20.0 3.9-5.9 15-18 MV: 44 MV: 91 MV: 277 2-9 Yr. 6.0-17.0 3.8-5.4 11-13 MV: 37 MV: 78 MV: 300 10 Yrs. 5.0-13.0 3.8-5.4 12-15 MV: 39 MV: 80 MV: 250 NOTE: * FOR ADULT BLACK MALES AND FEMALES, NORMAL WBC IS 2.9-7.7 K/ML * FOR ADULT BLACK MALES AND FEMALES, NORMAL RBC,HGB, AND HCT IS 5% LESS SOURCE FOR DATA: 23press 1800 OPERATION MANUAL( AUTOMATED BLOOD COUNTS AND DIFF.) APPENDIX B-3 CHRONIC KIDNEY DISEASE STAGING PER NKF: MALE GFR INTERPRETATION: 20-49 YRS: >60 mL/min Normal 50-59 YRS: >56 mL/min Normal 60-69 YRS: >49 mL/min Normal 70-79 YRS: >42 mL/min Normal 80 and above >35 mL/min Normal FEMALE GRF INTERPRETATION: 20-39 YRS: >60 mL/min Normal 40-49 YRS: >58 mL/min Normal 50-59 YRS: >51 mL/min Normal 60-69 YRS: >45 mL/min Normal 70-79 YRS: >39 mL/min Normal 80 and above >32 mL/min NormalCLASSIFICATION CHOLESTEROL FOR ADULTS CHILDREN/ADOLESCENTS* DESIRABLE: <200 MG/DL <170 MG/DL BORDER-LINE HIGH RISK: 200-239 MG/DL 170-199 MG/DL HIGH RISK: >240 MG/DL >200 MG/DL CLASS. FOR PRIMARY LDL CHOL PREVENTION: LDL CHOL-CHILD/ADOLESCENTS* DESIRABLE: <130 MG/DL <110 MG/DL BORDERLINE-HIGH RISK: 130-159 MG/DL 110-129 MG/DL HIGH RISK: >160 MG/DL >130 MG/DL *CHILDREN AND ADOLESCENTS REPRESENTS INDIVIDUALA AGED 2-19 YEARS EXCLUSIVE. Alt (SGPT) 20 U/L 0-41 [facility] ([facility] NORMAL RANGES Age WBC RBC HGB HCT MCV PLT Adult M 4.1-10.9 4.20-6.30 12.0-18.0 37.0-51.0 80-97 140-440 Adult F 4.1-10.9 4.04-5.48 12.0-18.0 37.0-51.0 80-97 140-440 0 -1 Yr 5.0-20.0 3.9-5.9 15-18 MV: 44 MV: 91 MV: 277 2-9 Yr. 6.0-17.0 3.8-5.4 11-13 MV: 37 MV: 78 MV: 300 10 Yrs. 5.0-13.0 3.8-5.4 12-15 MV: 39 MV: 80 MV: 250 NOTE: * FOR ADULT BLACK MALES AND FEMALES, NORMAL WBC IS 2.9-7.7 K/ML * FOR ADULT BLACK MALES AND FEMALES, NORMAL RBC,HGB, AND HCT IS 5% LESS SOURCE FOR DATA: 23press 1800 OPERATION MANUAL( AUTOMATED BLOOD COUNTS AND DIFF.) APPENDIX B-3 CHRONIC KIDNEY DISEASE STAGING PER NKF: MALE GFR INTERPRETATION: 20-49 YRS: >60 mL/min Normal 50-59 YRS: >56 mL/min Normal 60-69 YRS: >49 mL/min Normal 70-79 YRS: >42 mL/min Normal 80 and above >35 mL/min Normal FEMALE GRF INTERPRETATION: 20-39 YRS: >60 mL/min Normal 40-49 YRS: >58 mL/min Normal 50-59 YRS: >51 mL/min Normal 60-69 YRS: >45 mL/min Normal 70-79 YRS: >39 mL/min Normal 80 and above >32 mL/min NormalCLASSIFICATION CHOLESTEROL FOR ADULTS CHILDREN/ADOLESCENTS* DESIRABLE: <200 MG/DL <170 MG/DL BORDER-LINE HIGH RISK: 200-239 MG/DL 170-199 MG/DL HIGH RISK: >240 MG/DL >200 MG/DL CLASS. FOR PRIMARY LDL CHOL PREVENTION: LDL CHOL-CHILD/ADOLESCENTS* DESIRABLE: <130 MG/DL <110 MG/DL BORDERLINE-HIGH RISK: 130-159 MG/DL 110-129 MG/DL HIGH RISK: >160 MG/DL >130 MG/DL *CHILDREN AND ADOLESCENTS REPRESENTS INDIVIDUALA AGED 2-19 YEARS EXCLUSIVE. Alp 106.5 U/L 35-129 [facility] ([facility] NORMAL RANGES Age WBC RBC HGB HCT MCV PLT Adult M 4.1-10.9 4.20-6.30 12.0-18.0 37.0-51.0 80-97 140-440 Adult F 4.1-10.9 4.04-5.48 12.0-18.0 37.0-51.0 80-97 140-440 0 -1 Yr 5.0-20.0 3.9-5.9 15-18 MV: 44 MV: 91 MV: 277 2-9 Yr. 6.0-17.0 3.8-5.4 11-13 MV: 37 MV: 78 MV: 300 10 Yrs. 5.0-13.0 3.8-5.4 12-15 MV: 39 MV: 80 MV: 250 NOTE: * FOR ADULT BLACK MALES AND FEMALES, NORMAL WBC IS 2.9-7.7 K/ML * FOR ADULT BLACK MALES AND FEMALES, NORMAL RBC,HGB, AND HCT IS 5% LESS SOURCE FOR DATA: 23press 1800 OPERATION MANUAL( AUTOMATED BLOOD COUNTS AND DIFF.) APPENDIX B-3 CHRONIC KIDNEY DISEASE STAGING PER NKF: MALE GFR INTERPRETATION: 20-49 YRS: >60 mL/min Normal 50-59 YRS: >56 mL/min Normal 60-69 YRS: >49 mL/min Normal 70-79 YRS: >42 mL/min Normal 80 and above >35 mL/min Normal FEMALE GRF INTERPRETATION: 20-39 YRS: >60 mL/min Normal 40-49 YRS: >58 mL/min Normal 50-59 YRS: >51 mL/min Normal 60-69 YRS: >45 mL/min Normal 70-79 YRS: >39 mL/min Normal 80 and above >32 mL/min NormalCLASSIFICATION CHOLESTEROL FOR ADULTS CHILDREN/ADOLESCENTS* DESIRABLE: <200 MG/DL <170 MG/DL BORDER-LINE HIGH RISK: 200-239 MG/DL 170-199 MG/DL HIGH RISK: >240 MG/DL >200 MG/DL CLASS. FOR PRIMARY LDL CHOL PREVENTION: LDL CHOL-CHILD/ADOLESCENTS* DESIRABLE: <130 MG/DL <110 MG/DL BORDERLINE-HIGH RISK: 130-159 MG/DL 110-129 MG/DL HIGH RISK: >160 MG/DL >130 MG/DL *CHILDREN AND ADOLESCENTS REPRESENTS INDIVIDUALA AGED 2-19 YEARS EXCLUSIVE. Ast (Sgot) 18 U/L 0-40 [facility] NORMAL RANGES Age WBC RBC HGB HCT MCV PLT Adult M 4.1-10.9 4.20-6.30 12.0-18.0 37.0-51.0 80-97 140-440 Adult F 4.1-10.9 4.04-5.48 12.0-18.0 37.0-51.0 80-97 140-440 0 -1 Yr 5.0-20.0 3.9-5.9 15-18 MV: 44 MV: 91 MV: 277 2-9 Yr. 6.0-17.0 3.8-5.4 11-13 MV: 37 MV: 78 MV: 300 10 Yrs. 5.0-13.0 3.8-5.4 12-15 MV: 39 MV: 80 MV: 250 NOTE: * FOR ADULT BLACK MALES AND FEMALES, NORMAL WBC IS 2.9-7.7 K/ML * FOR ADULT BLACK MALES AND FEMALES, NORMAL RBC,HGB, AND HCT IS 5% LESS SOURCE FOR DATA: 23press 1800 OPERATION MANUAL( AUTOMATED BLOOD COUNTS AND DIFF.) APPENDIX B-3 CHRONIC KIDNEY DISEASE STAGING PER NKF: MALE GFR INTERPRETATION: 20-49 YRS: >60 mL/min Normal 50-59 YRS: >56 mL/min Normal 60-69 YRS: >49 mL/min Normal 70-79 YRS: >42 mL/min Normal 80 and above >35 mL/min Normal FEMALE GRF INTERPRETATION: 20-39 YRS: >60 mL/min Normal 40-49 YRS: >58 mL/min Normal 50-59 YRS: >51 mL/min Normal 60-69 YRS: >45 mL/min Normal 70-79 YRS: >39 mL/min Normal 80 and above >32 mL/min NormalCLASSIFICATION CHOLESTEROL FOR ADULTS CHILDREN/ADOLESCENTS* DESIRABLE: <200 MG/DL <170 MG/DL BORDER-LINE HIGH RISK: 200-239 MG/DL 170-199 MG/DL HIGH RISK: >240 MG/DL >200 MG/DL CLASS. FOR PRIMARY LDL CHOL PREVENTION: LDL CHOL-CHILD/ADOLESCENTS* DESIRABLE: <130 MG/DL <110 MG/DL BORDERLINE-HIGH RISK: 130-159 MG/DL 110-129 MG/DL HIGH RISK: >160 MG/DL >130 MG/DL *CHILDREN AND ADOLESCENTS REPRESENTS INDIVIDUALA AGED 2-19 YEARS EXCLUSIVE. Tbili 0.21 mg/dL 0.0-1.2 [facility] ([facility] NORMAL RANGES Age WBC RBC HGB HCT MCV PLT Adult M 4.1-10.9 4.20-6.30 12.0-18.0 37.0-51.0 80-97 140-440 Adult F 4.1-10.9 4.04-5.48 12.0-18.0 37.0-51.0 80-97 140-440 0 -1 Yr 5.0-20.0 3.9-5.9 15-18 MV: 44 MV: 91 MV: 277 2-9 Yr. 6.0-17.0 3.8-5.4 11-13 MV: 37 MV: 78 MV: 300 10 Yrs. 5.0-13.0 3.8-5.4 12-15 MV: 39 MV: 80 MV: 250 NOTE: * FOR ADULT BLACK MALES AND FEMALES, NORMAL WBC IS 2.9-7.7 K/ML * FOR ADULT BLACK MALES AND FEMALES, NORMAL RBC,HGB, AND HCT IS 5% LESS SOURCE FOR DATA: 23press 1800 OPERATION MANUAL( AUTOMATED BLOOD COUNTS AND DIFF.) APPENDIX B-3 CHRONIC KIDNEY DISEASE STAGING PER NKF: MALE GFR INTERPRETATION: 20-49 YRS: >60 mL/min Normal 50-59 YRS: >56 mL/min Normal 60-69 YRS: >49 mL/min Normal 70-79 YRS: >42 mL/min Normal 80 and above >35 mL/min Normal FEMALE GRF INTERPRETATION: 20-39 YRS: >60 mL/min Normal 40-49 YRS: >58 mL/min Normal 50-59 YRS: >51 mL/min Normal 60-69 YRS: >45 mL/min Normal 70-79 YRS: >39 mL/min Normal 80 and above >32 mL/min NormalCLASSIFICATION CHOLESTEROL FOR ADULTS CHILDREN/ADOLESCENTS* DESIRABLE: <200 MG/DL <170 MG/DL BORDER-LINE HIGH RISK: 200-239 MG/DL 170-199 MG/DL HIGH RISK: >240 MG/DL >200 MG/DL CLASS. FOR PRIMARY LDL CHOL PREVENTION: LDL CHOL-CHILD/ADOLESCENTS* DESIRABLE: <130 MG/DL <110 MG/DL BORDERLINE-HIGH RISK: 130-159 MG/DL 110-129 MG/DL HIGH RISK: >160 MG/DL >130 MG/DL *CHILDREN AND ADOLESCENTS REPRESENTS INDIVIDUALA AGED 2-19 YEARS EXCLUSIVE. Osmolality-Calculated 270.0 [facility] ([facility] NORMAL RANGES Age WBC RBC HGB HCT MCV PLT Adult M 4.1-10.9 4.20-6.30 12.0-18.0 37.0-51.0 80-97 140-440 Adult F 4.1-10.9 4.04-5.48 12.0-18.0 37.0-51.0 80-97 140-440 0 -1 Yr 5.0-20.0 3.9-5.9 15-18 MV: 44 MV: 91 MV: 277 2-9 Yr. 6.0-17.0 3.8-5.4 11-13 MV: 37 MV: 78 MV: 300 10 Yrs. 5.0-13.0 3.8-5.4 12-15 MV: 39 MV: 80 MV: 250 NOTE: * FOR ADULT BLACK MALES AND FEMALES, NORMAL WBC IS 2.9-7.7 K/ML * FOR ADULT BLACK MALES AND FEMALES, NORMAL RBC,HGB, AND HCT IS 5% LESS SOURCE FOR DATA: 23press 1800 OPERATION MANUAL( AUTOMATED BLOOD COUNTS AND DIFF.) APPENDIX B-3 CHRONIC KIDNEY DISEASE STAGING PER NKF: MALE GFR INTERPRETATION: 20-49 YRS: >60 mL/min Normal 50-59 YRS: >56 mL/min Normal 60-69 YRS: >49 mL/min Normal 70-79 YRS: >42 mL/min Normal 80 and above >35 mL/min Normal FEMALE GRF INTERPRETATION: 20-39 YRS: >60 mL/min Normal 40-49 YRS: >58 mL/min Normal 50-59 YRS: >51 mL/min Normal 60-69 YRS: >45 mL/min Normal 70-79 YRS: >39 mL/min Normal 80 and above >32 mL/min NormalCLASSIFICATION CHOLESTEROL FOR ADULTS CHILDREN/ADOLESCENTS* DESIRABLE: <200 MG/DL <170 MG/DL BORDER-LINE HIGH RISK: 200-239 MG/DL 170-199 MG/DL HIGH RISK: >240 MG/DL >200 MG/DL CLASS. FOR PRIMARY LDL CHOL PREVENTION: LDL CHOL-CHILD/ADOLESCENTS* DESIRABLE: <130 MG/DL <110 MG/DL BORDERLINE-HIGH RISK: 130-159 MG/DL 110-129 MG/DL HIGH RISK: >160 MG/DL >130 MG/DL *CHILDREN AND ADOLESCENTS REPRESENTS INDIVIDUALA AGED 2-19 YEARS EXCLUSIVE. Anion Gap 19 mmol/L [facility] ([facility] NORMAL RANGES Age WBC RBC HGB HCT MCV PLT Adult M 4.1-10.9 4.20-6.30 12.0-18.0 37.0-51.0 80-97 140-440 Adult F 4.1-10.9 4.04-5.48 12.0-18.0 37.0-51.0 80-97 140-440 0 -1 Yr 5.0-20.0 3.9-5.9 15-18 MV: 44 MV: 91 MV: 277 2-9 Yr. 6.0-17.0 3.8-5.4 11-13 MV: 37 MV: 78 MV: 300 10 Yrs. 5.0-13.0 3.8-5.4 12-15 MV: 39 MV: 80 MV: 250 NOTE: * FOR ADULT BLACK MALES AND FEMALES, NORMAL WBC IS 2.9-7.7 K/ML * FOR ADULT BLACK MALES AND FEMALES, NORMAL RBC,HGB, AND HCT IS 5% LESS SOURCE FOR DATA: 23press 1800 OPERATION MANUAL( AUTOMATED BLOOD COUNTS AND DIFF.) APPENDIX B-3 CHRONIC KIDNEY DISEASE STAGING PER NKF: MALE GFR INTERPRETATION: 20-49 YRS: >60 mL/min Normal 50-59 YRS: >56 mL/min Normal 60-69 YRS: >49 mL/min Normal 70-79 YRS: >42 mL/min Normal 80 and above >35 mL/min Normal FEMALE GRF INTERPRETATION: 20-39 YRS: >60 mL/min Normal 40-49 YRS: >58 mL/min Normal 50-59 YRS: >51 mL/min Normal 60-69 YRS: >45 mL/min Normal 70-79 YRS: >39 mL/min Normal 80 and above >32 mL/min NormalCLASSIFICATION CHOLESTEROL FOR ADULTS CHILDREN/ADOLESCENTS* DESIRABLE: <200 MG/DL <170 MG/DL BORDER-LINE HIGH RISK: 200-239 MG/DL 170-199 MG/DL HIGH RISK: >240 MG/DL >200 MG/DL CLASS. FOR PRIMARY LDL CHOL PREVENTION: LDL CHOL-CHILD/ADOLESCENTS* DESIRABLE: <130 MG/DL <110 MG/DL BORDERLINE-HIGH RISK: 130-159 MG/DL 110-129 MG/DL HIGH RISK: >160 MG/DL >130 MG/DL *CHILDREN AND ADOLESCENTS REPRESENTS INDIVIDUALA AGED 2-19 YEARS EXCLUSIVE. eGFR 32 # [facility] ( [facility] CKD-EPI eGFR Non-Afr. Bahamian 28 # [facility] ([facility] CKD-EPI ID Date Data Source [id number] 12/01/2020 09:49:00 AM EDT [facility] ([facility] Name Value Range Interpretation Code Description Data Haylee rce(s) Supporting Document(s) Thyrotropin [Units/volume] in Serum or Plasma 7.132 ulU/mL 0. 60-4.8 Above high normal [facility] ([facility] ) ID Date Data Source [id number] 11/13/2020 03:05:00 PM EDT [facility] ([facility]) Name Value Range Interpretation Code Description Data Haylee rce(s) Supporting Document(s) Mesenteric Artery Ultrasound Laboratory test result [facility] ([facility]) ID Date Data Source [id number] 09/29/2020 11:53:00 AM EDT [facility] ([facility]) Name Value Range Interpretation Code Description Data Haylee rce(s) Supporting Document(s) Bacteria identified in Nose by Aerobe culture Laboratory test result [facility] ([facility]) Patient notified ID Date Data Source [id number] 09/29/2020 11:53:00 AM EDT [facility] ([facility]) Name Value Range Interpretation Code Description Data Haylee rce(s) Supporting Document(s) Bacteria identified in Unspecified specimen by Culture Laborator y test result [facility] ([facility]) ID Date Data Source [id number] 09/29/2020 12:19:32 AM EDT [facility] INFORMATIONPatient MRN Name Date of Age Gend*PT [id number] Abdirahman Yip 1950 70 years F HOPPT Location Admission Date/Time Visit ID Attending [id number] 09/15/20 1006 --- --- EPI ID CSN Admitting Provider [id number] Leana Barron MD([id number])NAME: Abdirahman Simms Akin M.R.#: [id number] #: [id number] DATE: 09/15/2020 PT TYPE: C SURACCT #: [id number] : 1950 SEX: femaleReferring Physician:Primary Care Physician: ROBINSON GOODWIN, MDDISCHARGE DATE: 09/15/2020URGEON: Leana Barron [facility] HOSPITALISTANT: NonePREOPERATIVE DX: Mesenteric arterial atherosclerosis with abdominal pain.POSTOPERATIVE DX: Mesenteric arterial atherosclerosis with abdominal pain.PROCEDURE:1.left brachial artery cutdown.2. Aortogram.3. Celiac artery runoff.4. Celiac artery balloon-expanding stents 5 x 19 mm.5. Celiac artery balloon angioplasty, 5 mm balloon.6. Completion angiogram.7. Primary closure of left brachial artery cutdow n.ANESTHESIA: Monitored sedation (Duration 90 minutes).COMPLICATIONS: None.SPECIMEN: None.ESTIMATED BLOOD LOSS: MinimalINDICATION: This is a 70 years year old female with a history of Mesentericarterial atherosclerosis with abdominal pain and was planned for angiogram andpossible endovascular intervention.DESCRIPTION OF PROCEDURE: After explaining the procedure to the patient andtaking written consent, the patient was taken to the endovascular suite.Patient was placed under conscious sedation using IV Versed and IV fentanyl.A 3 cm incision was made in the left anti brachial fossa. 1% lidocaine was usedfoe anesthetic. Cirmcumferential dissection was done of the left brachialartery. Patient was given 5000 units of heparin. The left brachial artery wasaccessed using 5-Mongolian micropuncture kit, which was switched to a 5- Frenchsheath and Omni flush catheter was placed into the aorta.Aortogram was performed, which showed patent distal aorta,patent bilateral common, internal, and external iliac artery. 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 Celiac artery runoff was done, whichshowed 80% proximal stenosis and patent splenic and hepatic arteries. Wireaccess was obtained through the diseased region intothe celiac artery. Celiac artery was treated with a balloon- expanding stents 5 x19 mm. Celiac artery balloon angioplasty was done with a 5 mm balloon.Completion film showed resolution ofthat diseased area, patent unchanged distal runoff. Now collaterals from celiacartery are seen reconstituting distal superior mesenteric artery.The sheath was exchanged for a short 6-Mongolian sheath. Sheath was removed.Arteriotomy was closed using interrupted 6-0 prolene sutures. Wound was closedusing 3-0 Vicryl and 4-0 M onocryl. [place] alvarez and 4x4 guaze were used fordressing. Patient was stable throughout the procedure and I was presentthroughout.Leana Barron MD Name Value Range Interpretation Code Description Data Haylee rce(s) Supporting Document(s) ID Date Data Source [id number] 09/27/2020 05:18:00 PM EDT [facility] ([facility] Name Value Range Interpretation Code Description Data Haylee rce(s) Supporting Document(s) Uric Acid 4.9 [facility] ([facility] ID Date Data Source [id number] 09/27/2020 05:18:00 PM EDT [facility] ([facility]) Name Value Range Interpretation Code Description Data Haylee rce(s) Supporting Document(s) Glucose 117 [facility] Blood Urea Nitrogen 29.5 [facility] ([facility] Glomerular filtration rate/1.73 sq M.pre dicted [Volume Rate/Area] in Serum or Plasma by Creatinine-based formula (MDRD) 34 [facility] ([facility]) Creatinine 1.5 [facility] ([facility]) Sodium 141.9 [facility] Potassium 4.46 [facility] Chloride 100.2 [facility] Carbon Dioxide 29.4 [facility]) Calcium 8.5 [facility] Phosphorus 4.2 [facility] ([facility]) Albumin 3.2 [facility] ID Date Data Source [id number] 09/27/2020 05:18:00 PM EDT [facility] ([facility]) Name Value Range Interpretation Code Description Data Haylee rce(s) Supporting Document(s) White Blood Count 9.1 [facility] Platelets 471 [facility] Red Blood Count 3.42 [facility]) Hemoglobin 10.5 [facility] ([facility]) Hematocrit 33.9 [facility] ([facility]) ID Date Data Source [id number] 09/19/2020 08:55:00 AM EDT [facility]PAT[facility] NT INFORMATIONPatient MRN Name Date of Age Gend*PT [id number] Abdirahman Yip 1950 70 years F HOP[facility] Location Admission Date/Time Visit ID Attending [id number] 09/15/20 1006 --- --- EPI ID CSN Admitting Provider [id number] eLana Barron MD([id number]) Attestation signed by Leana Barron MD at 09/19/2020 8:54 AMI saw and evaluated the patient and reviewed note. I agree with the history,physical and medical decision makingSignature: DAVID Maceate: September 19, 2020Time: 8:54 AM --Surgical Discharge Ld YipMRN: [id number] date: dmitting Physician: DAVID Maceischarge date and time:Discharge Orders Placed(From admission, onward) Start Ordered 09/17/20640 Discharge patient OnceExpected Discharge Date: 09/17/20Discharge Disposition: Home or Self Care 09/17/20640Discharge Physician: Cherelle Gallagher Diagnosis: Mesenteric artery stenosisSecondary Diagnoses:Active Hospital Problems Diagnosis Date Noted Mesenteric artery stenosis Diabetes CKD (chronic kidney disease), stage III followed by Dr Lira CAD (coronary artery disease) s/p CABG, Followed by Dr Bocanegra Hypertension Epigastric pain 05/14/2020Resolved Hospital ProblemsNo resolved problems to display.Discharge Medications:Your medication listSTART taking these medications Instructions Last Dose Given Morning Afternoon Evening Bedtime As Neededclopidogrel 75 MG tabletCommonly known as: PLAVIX Take 1 tablet (75 mg total) by mouth dailyHYDROcodone-acetaminophen 5-325 MG per tabletCommonly known as: NORCO Take 1 tablet by mouth every 6 (six) hours as needed for pain iStop Reference#: [id number] Max Daily Amount: 4 tabletsCONTINUE taking these medications Instructions Last Dose Given Morning Afternoon Evening Bedtime As Neededacetaminophen 650 MG CR tabletCommonly known as: TYLENOL Take 650 mg by mouth every 8 (eight) hours as needed for painallopurinol 100 MG tabletCommonly known as: ZYLOPRIM Take 100 mg by mouth dailyAmmonium Lactate 10 % Crea Apply topically daily as needed (for dry skin)aspirin EC 81 MG EC tablet Take 81 mg by mouth 2 (two) times a dayatorvastatin 10 MG tabletCommonly known as: LIPITOR Take 10 mg by mouth nightlybrimonidine 0.2 % ophthalmic solutionCommonly known as: ALPHAGAN Administer 1 drop to both eyes dailyCalcium Citrate-Vitamin D 315- 250 MG-UNIT Tabs Take 1 tablet by mouth 2 (two) times a dayCentrum Silver Adult 50+ tablet Take 1 tablet by mouth dailydocusate sodium 100 MG capsuleCommonly known as: COLACE Take 100 mg by mouth nightlyDULoxetine 60 MG capsuleCommonly known as: CYMBALTA Take 60 mg by mouth nightlyesomeprazole 40 MG capsuleCommonly known as: NexIUM Take 40 mg by mouth 2 (two) times a dayferrous gluconate 324 MG tabletCommonly known as: FERGON Take 324 mg by mouth dailyfurosemide 20 MG tabletCommonly known as: LASIX Take 20 mg by mouth 2 (two) times a daygabapentin 400 MG capsuleCommonly known as: NEURONTIN Take 400 mg by mouth 3 (three) times a dayisradipine 2.5 MG capsuleCommonly known as: DYNACIRC Take 2.5 mg by mouth 2 (two) times a daylatanoprost 0.005 % ophthalmic solutionCommonly known as: XALATAN Administer 1 drop to both eyes nightlymemantine 10 MG tabletCommonly known as: NAMENDA Take 10 mg by mouth 2 (two) times a daymupirocin 2 % ointmentCommonly known as: BACTROBAN Apply topically 2 (two) times a day Apply to each nare twice a day with acotton swab, starting the five days before surgery.nitroglycerin 0.4 MG SL tabletCommonly known as: NITROSTAT Place 0.4 mg under the tongue every 5 (five) minutes as needed for chest painNovoLOG FlexPen 100 UNIT/ML SopnGeneric drug: Insulin Aspart Inject under the skin 3 times daily sliding scalespironolactone 25 MG tabletCommonly known as: ALDACTONE Take 25 mg by mouth 2 (two) times a daySUPER B COMPLEX/C PO Take 1 tablet by mouth dailytiZANidine 2 MG tabletCommonly known as: ZANAFLEX Take 2 mg by mouth 2 (two) times a dayToujeo SoloStar 300 UNIT/ML SopnGeneric drug: Insulin Glargine (1 Unit Dial) Inject 30 Units under the skin nightlyvitamin B-12 1000 MCG tabletCommonly known as: CYANOCOBALAMIN Take 2 tablets by mouth dailyWhere to Get Your MedicationsThese medications [id number] AT [facility] & [address] [id number] clopidogrel 75 MG tablet HYDROcodone-acetaminophen 5-325 MG per tabletIndication for Admission: 70-year-old female with history of mesenteric stenosiswith postprandial pain, significant weight loss. Elected surgicalrevascularization.Hospital Course & Complications: She presented to [facility] 09[facility] and wasseen on the same day in interventional radiology by Dr. Barron where she underwentmesenteric angiogram via left brachial artery cutdown. The SMA was identifiedis chronically occluded, the celiac artery had severe stenosis and wassuccessfully stented. The CARIDAD was not visualized. Post procedure, she remainedstable. She was able to tolerate a regular meal without postprandial pain. Thepain in her left arm was uncontrolled, although it was perfused and warm.It was anticipated that she would be discharged to home on 09/16/2020, but shewas found unarousable in her room sitting in a chair around 1447. Her bloodsugar was checked and <20 on glucometer. She was given an ampule of D50, evaluated her and recommend that she remained hospitalized overnight forclose monitoring and glycemic control. It was discovered that she did not eatlunch in anticipation for discharge, she had it bagged for the ride home and itwas in the room. Her Lantus was held and humalog SS lowered. She remainedhospitalized overnight for close observation to ensure glycemic control.On 09/17/2020 she had minimal pain at the left brachial artery cutdown site, shewas tolerating her diet, she felt well overall. Her blood sugars were bettercontrolled. She was evaluated by physical therapy [facility]:Past Medical History:Diagnosis Date CAD (coronary artery disease) s/p CABG, Followed by Dr Bocanegra Carotid artery disease 12/27/2014 s/p LCEA, Dr Nieves Chronic vascular disorder of intestine CKD (chronic kidney disease), stage III followed by Dr Lira Colon polyp Depressed Diabetes Diastolic CHF GERD (gastroesophageal reflux disease) Glaucoma History of transfusion Hyperlipidemia Hypertension Macular degeneration Mesenteric artery stenosis Metabolic syndrome GA (myocardial infarction) Osteoarthritis PAF (paroxysmal atrial fibrillation) H/O, s/p atrial ablation S/P gastric bypass 07/2012 Dr Olivo Sleep apnea CPAP TIA (transient ischemic attack)Surgical Procedures:* No surgery found *Mesenteric arteriogram, celiac artery stent 09/15/2020ignificant Diagnostic Studies:-Mesenteric arteriogram 09/15/2020-Routine labsTreatments:- pain controlDischarge Exam:Vitals: Temp: [97.6 F-98.1 F] 98 FHeart Rate: [60-98] 98Resp: [13-21] 21BP: (131-187)/(56-83) 131/62General appearance: Awake and alert, NAD sitting upright in bedLungs: CTA bilaterally an terior; no rhonchi, rales, wheezing.Heart: Regular rate and rhythm, no murmurs, rubs, gallops.Abdomen: Soft, non-tender, NABS througoutExtremities:RU unremarkableLUE dressing intact, removed. 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 No other rashesor lesions appreciated.Items needing special attention:-She was instructed to call the office for follow-up appointment to be seen in1-[address] Barron.Discharged Condition:goodDisposition: Home or Self CareSignature: MAGY Gallagherate: September 17, 2020Time: 6:43 AM Name Value Range Interpretation Code Description Data Haylee rce(s) Supporting Document(s) ID Date Data Source [id number] 09/17/2020 04:07:00 PM EDT [facility] ([facility]) Name Value Range Interpretation Code Description Data Haylee rce(s) Supporting Document(s) Laboratory test finding (navigational concept) 239 mg/dL 70-99 [facility] ([facility]) PERFORMED BY [facility]AFF ID Date Data Source [id number] 09/17/2020 12:08:30 PM EDT [facility] [place] [facility] Name Value Range Interpretation Code Description Data Haylee rce(s) Supporting Document(s) POC NOVA GLU 239 mg/dL (70-99) H [facility] [place] [facility] [place] [facility] CLINICAL STAFF ID Date Data Source [id number] 09/17/2020 07:10:49 AM EDT [facility] [place] [facility] Name Value Range Interpretation Code Description Data Haylee rce(s) Supporting Document(s) POC NOVA GLU 107 mg/dL (70-99) [facility] [place] [facility] [place] [facility] CLINICAL STAFF ID Date Data Source [id number] 09/16/2020 11:33:42 PM EDT [facility] [place] [facility] Name Value Range Interpretation Code Description Data Haylee rce(s) Supporting Document(s) POC NOVA GLU 141 mg/dL (70-99) [facility] [place] [facility] [place] [facility] CLINICAL STAFF ID Date Data Source [id number] 09/16/2020 06:03:19 PM EDT [facility] [place] [facility] [place] Name Value Range Interpretation Code Description Data Haylee rce(s) Supporting Document(s) POC NOVA GLU 136 mg/dL (70-99) [facility] [place] [facility] [place] [facility] CLINICAL STAFF ID Date Data Source [id number] 09/16/2020 06:03:19 PM EDT [facility] [place] [facility] Name Value Range Interpretation Code Description Data Haylee rce(s) Supporting Document(s) POC NOVA GLU 210 mg/dL (70-99) [facility] [place] [facility] [place] [facility] CLINICAL STAFF ID Date Data Source [id number] 09/16/2020 06:03:19 PM EDT [facility] [place] [facility] Name Value Range Interpretation Code Description Data Haylee rce(s) Supporting Document(s) POC NOVA GLU 280 mg/dL (70-99) [facility] [place] [facility] [place] [facility] CLINICAL STAFF ID Date Data Source [id number] 09/16/2020 06:03:19 PM EDT [facility] [place] [facility] Name Value Range Interpretation Code Description Data Haylee rce(s) Supporting Document(s) POC NOVA GLU <20 mg/dL (70-99) LL [facility] [place] [facility] [place] [facility] CLINICAL STAFF ID Date Data Source [id number] 09/16/2020 06:03:19 PM EDT [facility] [place] [facility] Name Value Range Interpretation Code Description Data Haylee rce(s) Supporting Document(s) POC NOVA GLU <20 mg/dL (70-99) [facility] [place] [facility] [place] [facility] CLINICAL STAFF ID Date Data Source [id number] 09/16/2020 12:03:00 PM EDT [facility]) Name Value Range Interpretation Code Description Data Haylee rce(s) Supporting Document(s) Potassium [Moles/volume] in Serum or Plasma 3.7 mmol/L 3.6-5.2 [facility] Sodium [Moles/volume] in Serum or Plasma 138 mmol/L 136-145 [facility] Chloride [Moles/volume] in Serum or Plasma 105 mmol/L 100-108 [facility] ([facility]) Carbon dioxide, total [Moles/volume] in Serum or Plasma 27 mmol/L 22 -31 [facility] ([facility]) Anion gap in Serum or Plasma 6 mmol/L 7-16 [facility] ([facility]) Creatinine [Mass/volume] in Serum or Plasma 1.55 mg/dL 0.60-1.00 [facility] ([facility]) Urea nitrogen [Mass/volume] in Serum or Plasma 34 mg/dL 7-24 [facility] ([facility]) Urea nitrogen/Creatinine [Mass Ratio] in Serum or Plasma 21.9 1 0.0-20.0 [facility] ([facility]) Glucose [Mass/volume] in Serum or Plasma 41 mg/dL 70-99 Below lower panic limits [facility] ([facility]) ALERTED CRITICAL RESULT TO JOYCE(205) [place] D5 [place] [address] ON 09/16/20 [place] 0905 [place] [address] Calcium [Mass/volume] in Serum or Plasma 7.8 mg/dL 8.4-10.2 [facility] ([facility]) Glomerular filtration rate/1.73 sq M pre dicted among non-blacks [Volume Rate/Area] in Serum or Plasma by Creatinine-based formula (MDRD) 33 [facility] ([facility]) Glomerular filtration rate/1.73 sq M pre dicted among blacks [Volume Rate/Area] in Serum or Plasma by Creatinine-based formula (MDRD) 40 [facility] ([facility]) Glomerular filtration rate/1.73 sq M pre dicted among non-blacks [Volume Rate/Area] in Serum or Plasma by Creatinine-based formula (MDRD) Laboratory test result [facility] ([facility]) -- NORMAL KIDNEY FUNCTION OR MILD DISEASE - GFR >OR= 60 CHRONIC KIDNEY DISEASE - GFR 15 - 59 RENAL FAILURE - GFR <15 Est. GFR calculation based on the MDRD study equation, which assumes a steady state for creatinine. Est. GFR should not be used for medication dosing. ID Date Data Source [id number] 09/16/2020 08:26:52 AM EDT [facility] [place] [facility] Name Value Range Interpretation Code Description Data Haylee rce(s) Supporting Document(s) POC NOVA GLU 49 mg/dL (70-99) [facility] [place] [facility] [place] [facility] CLINICAL STAFF ID Date Data Source [id number] 09/16/2020 09:07:51 AM EDT [facility] [place] [facility] Name Value Range Interpretation Code Description Data Haylee rce(s) Supporting Document(s) SODIUM 138 mmol/L (136-145) [facility] [place] [facility] POTASSIUM 3.7 mmol/L (3.6-5.2) [facility] [place] [facility] CHLORIDE 105 mmol/L (100-108) [facility] [place] [facility] CO2 27 mmol/L (22-31) [facility] [place] [facility] ANION GAP 6 mmol/L (7-16) L [facility] [place] [facility] UREA NITROGEN 34 mg/dL (7-24) H [facility] [place] [facility] CREATININE 1.55 mg/dL (0.60-1.00) [facility] [place] [facility] BUN/CREAT RATIO 21.9 RATIO (10.0-20.0) [facility] [facility] GLUCOSE 41 mg/dL (70-99) LL [facility] [place] [facility] ALERTED CRITICAL RESULT TOROSE(205) [place] D 5 [place] [address] ON 09/16/20 [place]05 [place] [address] CALCIUM 7.8 mg/dL (8.4-10.2) L [facility] [place] [facility] GFR 33 ml/min/1.73m2 (>59) L [facility] [place] [facility] GFR ( AMER) 40 ml/min/1.73m2 (>59) L [facility] [place] [facility] GFR INTERPRETATION [facility] --NORMAL KIDNEY FUNCTION OR MILD DISEASE - GFR >OR= 60CHRONIC KIDNEY DISEASE - GFR 15 - 59RENAL FAILURE - GFR <15 Est. GFR calculation based on the MDRDstudy equation, which assumes a steadystate for creatinine. Est. GFR should notbe used for medication dosing. ID Date Data Source [id number] 09/16/2020 07:32:14 AM EDT [facility] [place] [facility] Name Value Range Interpretation Code Description Data Haylee rce(s) Supporting Document(s) WBC 12.0 10*3/uL (4.1-11.0) [facility] [place] [facility] RBC 3.26 10*6/uL (4.00-5.40) [facility] [place] [facility] HGB 10.4 g/dL (12.0-16.0) [facility] [place] [facility] HCT 31.7 % (36.0-47.0) [facility] [place] [facility] [place] [place] [address] [place] [id number] MCV 97.4 fL (80.0-95.0) [facility] [place] [facility] MCH 31.9 pg (27.0-32.0) [facility] [place] [facility] MCHC 32.8 g/dL (32.0-36.0) [facility] [place] [facility] RDW 17.0 % (10.5-14.5) [facility] [place] [facility] PLT 397 10*3/uL (150-450) [facility] [place] [facility] MPV 8.5 fL (7.1-10.7) [facility] [place] [facility] ID Date Data Source [id number] 09/15/2020 08:49:35 PM EDT [facility] [place] [facility] Name Value Range Interpretation Code Description Data Haylee rce(s) Supporting Document(s) POC NOVA GLU 285 mg/dL (70-99) H [facility] [place] [facility] [place] [facility] CLINICAL STAFF ID Date Data Source [id number] 09/15/2020 02:55:09 PM EDT [facility] Name Value Range Interpretation Code Description Data Haylee rce(s) Supporting Document(s) IR IS ARTERIOGRAM VISCERAL MESENTERIC [facility] ID Date Data Source [id number] 09/13/2020 12:47:17 PM EDT [facility] INFORMATIONPatient MRN Name Date of Age Gend*PT [id number] Abdirahman Yip 1950 70 years F OPPT Location Admission Date/Time Visit ID Attending Provider --- --- --- Collin Nieves MD([id number]) EPI ID CSN Admitting Provider [id number] ---Addended by: AILYN MENCHACA on: 09/13/2020 12:47 PM Modules accepted: Orders Name Value Range Interpretation Code Description Data Haylee rce(s) Supporting Document(s) ID Date Data Source [id number] 09/11/2020 01:46:04 PM EDT [facility]Patient [facility] Name Date of Age Gend*PT [id number] Abdirahman Yip 1950 70 years F OPPT Location Admission Date/Time Visit ID Attending Provider --- --- --- Collin Nieves MD([id number]) EPI ID CSN Admitting Provider [id number] ---HISTORY PHYSICALName: Abdirahman Yip : 1950 Sex: female Care [facility] Physician: Dr. NievesInformant: The patient who is reliable.Chief Complaint: " I need surgery"HISTORY OF PRESENT ILLNESS: Ms Yip is a 70 years old white female with ahistory of CAD, CABG, carotid artery stenosis, insulin-dependent diabetic, CKD,GERD, hypertension, hyperlipidemia, and sleep apnea who reports of 1 yearhistory of generalized abdominal pain. She had gastric bypass surgery in 2012however she continued to lose unintentional weight. Her appetite has decreasedsignificantly. She has some nausea but denies any vomiting, diarrhea, nightsweats, or fever. Patient was found to have chronic vascular insufficiency ofintestine. Subsequently she was referred to Dr. Nieves. Options were discussed.She now has elected to undergo CREATION, BYPASS, ARTERIAL, MESENTERIC on 09/15/20PAST MEDICAL HISTORY:Past Medical History:Diagnosis Date CAD (coronary artery disease) s/p CABG, Followed by Dr Bocanegra Carotid artery disease 12/27/2014 s/p LCEA, Dr Nieves Chronic vascular disorder of intestine CKD (chronic kidney disease), stage III followed by Dr Lria Colon polyp Depressed Diabetes Diastolic CHF GERD (gastroesophageal reflux disease) Glaucoma Hyperlipidemia Hypertension Macular degeneration Metabolic syndrome GA (myocardial infarction) Osteoarthritis PAF (paroxysmal atrial fibrillation) H/O, s/p atrial ablation S/P gastric bypass 07/2012 Dr Olivo Sleep apnea CPAP TIA (transient ischemic attack)PAST SURGICAL HISTORY:Past Surgical Histo ry:Procedure Laterality Date ABDOMINAL HERNIA REPAIR N/A 10/07/2019 Procedure: LAPAROSCOPY, EXPLORATORY, WITH EXTENSIVE LYSIS OF ADHESIONS, ANDEVALUATION OF INTERNAL HERNIA; Surgeon: Nghia Butterfield MD; Laterality: N/A; ATRIAL ABLATION SURGERY 2009 CARDIAC CATHETERIZATION 2008,2012 CATARACT EXTRACTION W/ INTRAOCULAR LENS IMPLANT, BILATERAL CHOLECYSTECTOMY COLONOSCOPY CORONARY ARTERY BYPASS GRAFT 1993 ELBOW FRACTURE SURGERY Right EYE SURGERY LASER FOR GLAUCOMA LAPAROSCOPIC INCISIONAL / UMBILICAL / VENTRAL HERNIA REPAIR LUMBAR SPINE SURGERY 2010 PANENDOSCOPY N/A 01/03/2017 Procedure: ENDOSCOPY W ANESTHESIA; Surgeon: Kristie Cisneros MD; Laterality:N/A; CLIVE-EN-Y PROCEDURE 2012 UPPER GASTROINTESTINAL ENDOSCOPY VASCULAR SURGERY Left 12/27/2014 Procedure: EVERSION CAROTID ENDARTERECTOMY LEFT; Surgeon: Collin Nieves MD;Location: [facility]; Service: Vascular; Laterality: Left; WISDOM TOOTH EXTRACTIONALLERGIES:AllergiesAllergen Reactions Captopril RashMEDICATIONS:Prior to Admission medicationsMedication Sig Start Date End Date Taking? Authorizing Provideracetaminophen (TYLENOL) 650 MG CR tablet Take 650 mg by mouth every 8 (eight)hours as needed for pain Historical Provider, Heikellopurinol (ZYLOPRIM) 100 MG tablet Take 100 mg by mouth daily HistoricalProviderHEIKEmmonium Lactate 10 % CREA Apply topically daily as needed (for dry skin)Historical Provider, Heikespirin EC 81 MG EC tablet Take 81 mg by mouth 2 (two) times a dayHistorical Provider, Heiketorvastatin (LIPITOR) 10 MG tablet Take 10 mg by mouth nightly HistoricalProMD karlbrimonidine (ALPHAGAN) 0.2 % ophthalmic solution Administer 1 drop to both eyesdaily Historical Provider, YVETTEalcium Citrate-Vitamin D 315-250 MG-UNIT TABS Take 1 tablet by mouth 2 (two)times a day Historical Provider, Davidocusate sodium (COLACE) 100 MG capsule Take 100 mg by mouth nightlyHistorical Provider, DAVIDULoxetine (CYMBALTA) 60 MG capsule Take 60 mg by mouth nightly HistoricalProviMD riyaesomeprazole (NEXIUM) 40 MG capsule Take 40 mg by mouth 2 (two) times a dayHistorical Provider, ferrous gluconate (FERGON) 324 MG tablet Take 324 mg by mouth dailyHistorical Provider, furosemide (LASIX) 20 MG tablet Take 20 mg by mouth 2 (two) times a dayHistorical Provider, gabapentin (NEURONTIN) 400 MG capsule Take 400 mg by mouth 3 (three) times a dayHistorical Provider, Insulin Aspart (NOVOLOG FLEXPEN) 100 UNIT/ML SOPN Inject under the skin 3 timesdaily sliding scale Historical Provider, Insulin Glargine, 1 Unit Dial, (KAYCEEYuanGIULIANOPage SOLOSTAR) 300 UNIT/ML SOPN Inject 30Units under the skin nightly Historical Provider, isradipine (DYNACIRC) 2.5 MG capsule Take 2.5 mg by mouth 2 (two) times a dayHistorical Provider, latanoprost (XALATAN) 0.005 % ophthalmic solution Administer 1 drop to both eyesnightly Historical Provider, Katherineemantine (NAMENDA) 10 MG tablet Take 10 mg by mouth 2 (two) times a dayHistorical Provider, nitroglycerin (NITROSTAT) 0.[address] 0.4 mg under the tongue every 5(five) minutes as needed for chest pain Historical Provider, Andrewpironolactone (ALDACTONE) 25 MG tablet Take 25 mg by mouth 2 (two) times a dayHistorical Provider, ANDREWUPER B COMPLEX/C PO Take 1 tablet by mouth daily Historical Provider, therapeutic multivitamin-minerals (CENTRUM SILVER ADULT 50+) tablet Take 1tablet by mouth daily Historical Provider, tiZANidine (ZANAFLEX) 2 MG tablet Take 2 mg by mouth 2 (two) times a dayHistorical Provider, vitamin B-12 (CYANOCOBALAMIN) 1000 MCG tablet Take 2 tablets by mouth dailyHistorical Provider, Heikecetaminophen (TYLENOL) 325 MG tablet Take 2 tablets (650 mg total) by mouthevery 6 (six) hours as needed for pain or fever 10/09/19 09/11/20 MD Marvinlubiprostone (AMITIZA) 24 MCG capsule Take 24 mcg by mouth 2 (two) times a day09/11/20 Historical Provider, Katherineisoprostol (CYTOTEC) 200 MCG tablet Take 200 mcg by mouth 4 (four) times a day09/11/20 Historical Provider, Andrewimethicone (MYLICON) 80 MG chewable tablet Chew 1 tablet (80 mg total) every 6(six) hours as needed for flatulence 10/09/19 09/11/20 Zia Vargas MDsucralfate (CARAFATE) 1 G tablet Take 1 g by mouth 4 (four) times a day 09/11/20Historical Provider, MDSocial HistorySocioeconomic History Marital status: Single Spouse name: Not on file Number of children: Not on file Years of education: Not on file Highest education level: Not on fileOccupational History Not on fileSocial Needs Financial resource strain: Not on file Food insecurity: Worry: Not on file Inability: Not on file Transportation needs: Medical: Not on file Non-medical: Not on fileTobacco Use Smoking status: Former Smoker Packs/day: 1.50 Years: 23.00 Pack years: 34.50 Types: Cigarettes Last attempt to quit: 12/16/1993 Years since quittin.7 Smokeless tobacco: Never UsedSubstance and Sexual Activity Alcohol use: Not Currently Drug use: Never Sexual activity: Not on fileLifestyle Physical activity: Days per week: Not on file Minutes per session: Not on file Stress: Not on fileRelationships Social connections: Talks on phone: Not on file Gets together: Not on file Attends rastafari service: Not on file Active member of club or organization: Not on file Attends meetings of clubs or organizations: Not on file Relationship status: Not on file Intimate partner violence: Fear of current or ex partner: Not on file Emotionally abused: Not on file Physically abused: Not on file Forced sexual activity: Not on fileOther Topics Concern Not on fileSocial History Narrative Not on fileFamily HistoryProblem Relation Age of Onset Heart disease Mother Heart disease Brother Maljessica Hyperthermia Neg HxREVIEW OF SYSTEMS:Constitution: Weight stable, Denies fatigue, fever or chills. Caffeine: 2cups/day.HEENT: She wears glasses for reading. Denies any blurred vision, double vision,dizziness, tinnitus, dysphagia or headaches.Respiratory: Denies any shortness of breath, cough, yellow sputum production orwheezing.Cardiovascular: Denies any chest pain, pr essure or tightness. Denies anyproximal nocturnal dyspnea or orthopnea.Muscle/Skeletal System: Denies any muscle pain. Denies any falls.Neurologic: Denies any numbness, tingling, tremors or syncope.GI: Denies any vomiting, diarrhea, constipation or melena. Positivegeneralized abdominal painGU: Denies any dysuria, hematuria or nocturia.Endocrine: Denies polyuria, polydipsia or polyphagia. Denies any heat or coldintolerance, fatigue or night sweats.Hematology: Denies any bleeding or bruising tendencies.DNR Status: Full Code per the patient.HCP: NO per patient.PHYSICAL EXAM:General: She is a 70 yea rs old, pleasant white female, in no acute distress attime of examination. Vitals on arrival to the office are BP 138/83 (BP Location:Left upper arm, Patient Position: Sitting) | Pulse 77 | Temp 96.1 F | Resp18 | Ht 1.372 m (4' 6") | Wt 54.4 kg (120 lb) | SpO2 100% | BMI 28.93 kg/m Body mass index is 28.93 kg/m ..Skin is pink warm and dry.HEENT: She is normocephalic, atraumatic. [place] conjunctivae. Anicteric sclerae.Pupils are equal, round, reactive to light and accommodation. Extraocularmovements are intact. Ears: Without drainage or lesion. Tympanic membranes arepearly katz bilaterally. Mouth: Full upper and lower dentures. She has a gradeIII airway. Neck is supple midline without cervical adenopathy. There is notonsillo pharyngeal congestion. Mucous membranes are moist. There are no orallesions. No jugular distention. No carotid bruit.CHEST/BREAST: A/P less than transverse. Breast exam declined.LUNGS: Clear to auscultation. No wheezes, rhonchi or crackles.HEART: Rate rhythm regular. S1, S2. No murmur, rub or gallop.ABDOMEN: Bowel sounds positive times four. Soft, non tender. No reboundtenderness. No hepatosplenomegaly. Negative CVAT.GENITAL/RECTAL: Deferred.MUSCLE/SKELETAL: Strength is 5/5. [employer] are equal.NEUROLOGICALLY: Cranial nerves II through XII are grossly intact.VASCULAR: Pulses are positive. No edema.Anesthesia complications: DeniesSteroid use: She denies any oral steroid therapy for three weeks or greaterwithin the last 3 months.CSHA Frailty Scale :: 4/10 Vulnerable (while not dependent on others for dailyhelp, often symptoms limit activities. A common complaint is being "slowed up",and /or being tired during the day).Stop Bang Questionnaire - Total Score: CPAPIMPRESSION and PLAN:Primary Diagnosis: Chronic vascular insufficiency of intestine surgery asper Dr. Nieves.Secondary Diagnosis and Plan:1. CAD EKG obtained in Pre-Admission testing or external EKG within 6 months,Continuation of cardiac medications post-operatively based on clinical status2. Hypertension Continuation of prior to admission anti- hypertensivemedications unless precluded by clinical status.3. Atrial fibrillation Paroxysmal Resume prior to admissionanticoagulation when deemed appropriate by surgeon4. Sleep apnea Obstructive Patient to continue with use of home CPAP /BiPAP5. Diabetes Type 2 Routine blood glucose monitoring. Sliding scaleinsulin coverage while inpatient. Hold oral diabetic medications.6. GI prophylaxis Per surgeon7. DVT prophylaxis Early ambulation. Pneumatic compression device.Subcutaneous Heparin or LMW Heparin if clinically indicated8. Patient was evaluated by laboratory associate for preop stratification. Note date09/07/2020 is available in care everywhereBased on above medical co morbidities, length of stay may be prolonged greaterthan previously anticipated.ALLERGIES:Captopril09/11/2020 1:45 PMPramila SONG BanksThiraffi document or parts of this document, were dictated using [employer] speaking software. A reasonable attempt at proofreading has beenmade to minimize errors. Please call with any questions or corrections. Name Value Range Interpretation Code Description Data Haylee rce(s) Supporting Document(s) ID Date Data Source [id number] 09/12/2020 11:13:51 AM EDT [facility] [place] [facility] Name Value Range Interpretation Code Description Data [facility] rce(s) Supporting Document(s) SPECIMEN DESCRIPTION [facility] STAPH SCREEN RESULTS (ONEGSA) A [facility] COMMENT [facility] [place] [facility] GENE TO DETECT STAPH AUREUS. (2) RT-P CR WAS PERFORMED FOR THE mecA AND SCCmec GENES TO DETECT METHICILLIN RESISTANCE IN STAPH AUREUS.EMAILED TO [facility] IC AT 1044 ON [id number] OJ [id number]. ID Date Data Source [id number] 09/12/2020 02:10:23 AM EDT [facility] [place] [facility] SPEC EXP DATE 09/16/2020ATI ENT ABO/Rh A POSITIVEANTIBODY SCREEN NEGATIVETESTING SITE PERFORMED AT [address] [place] [id number] BANK COMMENT BLOOD TYPE CONFIRMED. Name Value Range Interpretation Code Description Data Haylee rce(s) Supporting Document(s) TYPE AND SCREEN [facility] [place] [facility] ID Date Data Source [id number] 09/11/2020 08:35:54 PM EDT [facility] [place] [facility] Name Value Range Interpretation Code Description Data Haylee rce(s) Supporting Document(s) HEMOGLOBIN A1C @ 7.0 % (4.0-6.0) H [facility] [place] [facility] Performed using Siemens [place] immunoassa y.Care must be taken when interpreting [id number] in patients with a hemoglobin variantor decreased erythrocyte lifespan. Values 5.7 - 6.4% suggest prediabetes.Values >=6.5% are diagnostic for diabetes.REFERENCE: DIABETES CARE 2018: 41(S13-S27). EST AVERAGE GLUCOSE 154 mg/dL [facility] ID Date Data Source [id number] 09/11/2020 08:22:10 PM EDT [facility] [place] [facility] Name Value Range Interpretation Code Description Data Haylee rce(s) Supporting Document(s) SODIUM 134 mmol/L (136-145) L [facility] [place] [facility] POTASSIUM 4.5 mmol/L (3.6-5.2) [facility] [place] [facility] CHLORIDE 96 mmol/L (100-108) L [facility] [place] [facility] CO2 29 mmol/L (22-31) [facility] [place] [facility] ANION GAP 9 mmol/L (7-16) [facility] [place] [facility] UREA NITROGEN 37 mg/dL (7-24) H [facility] [place] [facility] CREATININE 2.13 mg/dL (0.60-1.00) H [facility] [place] [facility] BUN/CREAT RATIO 17.4 RATIO (10.0-20.0) [facility] GLUCOSE 171 mg/dL (70-99) H [facility] [place] [facility] CALCIUM 9.4 mg/dL (8.4-10.2) [facility] [place] [facility] TOTAL PROTEIN 6.3 g/dL (6.4-8.2) L [facility] [place] [facility] ALBUMIN 2.8 g/dL (3.2-4.5) L [facility] [place] [facility] GLOBULIN 3.5 g/dL (2.7-4.3) [facility] [place] [facility] ALB/GLOB RATIO 0.8 RATIO [facility] [place] [facility] ALKALINE PHOSPHATASE 127 U/L (45-117) H [facility] BILIRUBIN,TOTAL 0.2 mg/dL (0.0-1.0) [facility] [place] [facility] PLEASE NOTE:Total bilirubin results may be falselyelevated in patients taking Eltrombopag. AST (SGOT) 18 U/L (11-39) [facility] [place] [facility] ALT (SGPT) 34 U/L (12-78) [facility] [place] [facility] GFR 23 ml/min/1.73m2 (>59) L [facility] [place] [facility] GFR ( AMER) 28 ml/min/1.73m2 (>59) L [facility] [place] [facility] GFR INTERPRETATION [facility] --NORMAL KIDNEY FUNCTION OR MILD DISEASE - GFR >OR= 60CHRONIC KIDNEY DISEASE - GFR 15 - 59RENAL FAILURE - GFR <15 Est. GFR calculation based on the MDRDstudy equation, which assumes a steadystate for creatinine. Est. GFR should notbe used for medication dosing. ID Date Data Source [id number] 09/11/2020 08:07:58 PM EDT [facility] [place] [facility] Name Value Range Interpretation Code Description Data Haylee rce(s) Supporting Document(s) PT 10.4 s (9.2-11.9) [facility] [place] [facility] INR 1.00 [facility] [place] [facility] SUGGESTED THERAPEUTIC RANGES USING INR F ORSTABILIZED ANTICOAGULATED PATIENTS:STANDARD DOSE THERAPY INR 2.0-3.0 DVT, PE, PREVENT DVT OR EMBOLISMHIGH DOSE THERAPY INR 2.5-3.5 PREVENT EMBOLISM FROM MECHANICAL HEART VALVE ID Date Data Source [id number] 09/11/2020 07:43:30 PM EDT [facility] [place] [facility] Name Value Range Interpretation Code Description Data Haylee rce(s) Supporting Document(s) WBC 11.9 10*3/uL (4.1-11.0) H [facility] [place] [facility] RBC 3.69 10*6/uL (4.00-5.40) L [facility] [place] [facility] HGB 11.8 g/dL (12.0-16.0) L [facility] [place] [facility] HCT 36.0 % (36.0-47.0) [facility] [place] [facility] MCV 97.6 fL (80.0-95.0) H [facility] [place] [facility] MCH 32.1 pg (27.0-32.0) H [facility] [place] [facility] MCHC 32.9 g/dL (32.0-36.0) [facility] [place] [facility] RDW 16.6 % (10.5-14.5) H [facility] [place] [facility] PLT 471 10*3/uL (150-450) H [facility] [place] [facility] [place]ney MPV 9.7 fL (7.1-10.7) [facility] [place] [facility] ID Date Data Source [id number] 09/11/2020 10:25:00 AM EDT [facility] Name Value Range Interpretation Code Description Data Haylee rce(s) Supporting Document(s) SARS coronavirus 2 RNA Not Detected [facility] This lab was ordered by [facility] [facility] and reported by [employer]. ID Date Data Source [id number] 09/12/2020 01:07:47 PM EDT [facility] [place] Name Value Range Interpretation Code Description Data Haylee rce(s) Supporting Document(s) SARS-COV-2 [facility] [place] christian LACY Not DetectedReference range: Not Detecte d This nucleic acid amplification test was developed and its performance characteristics determined by [employer]. Nucleic acid amplification tests include RT-PCR and TMA. This test has not been FDA cleared or approved. This test has been authorized by FDA under an Emergency Use Authorization (EUA). This test is only authorized for the duration of time the declaration that circumstances exist justifying the authorization of the emergency use of in vitro diagnostic tests for detection of SARS-CoV-2 virus and/or diagnosis of COVID-19 infection under section 564(b)(1) of the Act, 21 U.S.C. 360bbb-3(b) (1), unless the authorization is terminated or revoked sooner. When diagnostic testing is negative, the possibility of a false negative result should be considered in the context of a patient's recent exposures and the presence of clinical signs and symptoms consistent with COVID- 19. An individual without symptoms of COVID- 19 and who is not shedding S ARS-CoV-2 virus would expect to have a negative (not detected) result in this assay. Performed At: [facility] [place], [place] [id number] Maria Elena Simms PhD Ph:[phone] ID Date Data Source [id number] 08/31/2020 12:08:00 PM EDT [facility] ([facility] Name Value Range Interpretation Code Description Data Haylee rce(s) Supporting Document(s) WBC 16.1 10E3/uL 4.1-10.9 Above high normal [facility] ([facility] NORMAL RANGES Age WBC RBC HGB HCT MCV PLT Adult M 4.1-10.9 4.20-6.30 12.0-18.0 37.0-51.0 80-97 140-440 Adult F 4.1-10.9 4.04-5.48 12.0-18.0 37.0-51.0 80-97 140-440 0 -1 Yr 5.0-20.0 3.9-5.9 15-18 MV: 44 MV: 91 MV: 277 2-9 Yr. 6.0-17.0 3.8-5.4 11-13 MV: 37 MV: 78 MV: 300 10 Yrs. 5.0-13.0 3.8-5.4 12-15 MV: 39 MV: 80 MV: 250 NOTE: * FOR ADULT BLACK MALES AND FEMALES, NORMAL WBC IS 2.9-7.7 K/ML * FOR ADULT BLACK MALES AND FEMALES, NORMAL RBC,HGB, AND HCT IS 5% LESS SOURCE FOR DATA: 23press 1800 OPERATION MANUAL( AUTOMATED BLOOD COUNTS AND DIFF.) APPENDIX B-3 CHRONIC KIDNEY DISEASE STAGING PER NKF: MALE GFR INTERPRETATION: 20-49 YRS: >60 mL/min Normal 50-59 YRS: >56 mL/min Normal 60-69 YRS: >49 mL/min Normal 70-79 YRS: >42 mL/min Normal 80 and above >35 mL/min Normal FEMALE GRF INTERPRETATION: 20-39 YRS: >60 mL/min Normal 40-49 YRS: >58 mL/min Normal 50-59 YRS: >51 mL/min Normal 60-69 YRS: >45 mL/min Normal 70-79 YRS: >39 mL/min Normal 80 and above >32 mL/min Normal RBC 3.57 10E6/uL 4.20-6.30 Below low normal [facility] ([facility] NORMAL RANGES Age WBC RBC HGB HCT MCV PLT Adult M 4.1-10.9 4.20-6.30 12.0-18.0 37.0-51.0 80-97 140-440 Adult F 4.1-10.9 4.04-5.48 12.0-18.0 37.0-51.0 80-97 140-440 0 -1 Yr 5.0-20.0 3.9-5.9 15-18 MV: 44 MV: 91 MV: 277 2-9 Yr. 6.0-17.0 3.8-5.4 11-13 MV: 37 MV: 78 MV: 300 10 Yrs. 5.0-13.0 3.8-5.4 12-15 MV: 39 MV: 80 MV: 250 NOTE: * FOR ADULT BLACK MALES AND FEMALES, NORMAL WBC IS 2.9-7.7 K/ML * FOR ADULT BLACK MALES AND FEMALES, NORMAL RBC,HGB, AND HCT IS 5% LESS SOURCE FOR DATA: 23press 1800 OPERATION MANUAL( AUTOMATED BLOOD COUNTS AND DIFF.) APPENDIX B-3 CHRONIC KIDNEY DISEASE STAGING PER NKF: MALE GFR INTERPRETATION: 20-49 YRS: >60 mL/min Normal 50-59 YRS: >56 mL/min Normal 60-69 YRS: >49 mL/min Normal 70-79 YRS: >42 mL/min Normal 80 and above >35 mL/min Normal FEMALE GRF INTERPRETATION: 20-39 YRS: >60 mL/min Normal 40-49 YRS: >58 mL/min Normal 50-59 YRS: >51 mL/min Normal 60-69 YRS: >45 mL/min Normal 70-79 YRS: >39 mL/min Normal 80 and above >32 mL/min Normal HGB 11.4 g/dL 12.0-18.0 Below low normal [facility] ( [facility] NORMAL RANGES Age WBC RBC HGB HCT MCV PLT Adult M 4.1-10.9 4.20-6.30 12.0-18.0 37.0-51.0 80-97 140-440 Adult F 4.1-10.9 4.04-5.48 12.0-18.0 37.0-51.0 80-97 140-440 0 -1 Yr 5.0-20.0 3.9-5.9 15-18 MV: 44 MV: 91 MV: 277 2-9 Yr. 6.0-17.0 3.8-5.4 11-13 MV: 37 MV: 78 MV: 300 10 Yrs. 5.0-13.0 3.8-5.4 12-15 MV: 39 MV: 80 MV: 250 NOTE: * FOR ADULT BLACK MALES AND FEMALES, NORMAL WBC IS 2.9-7.7 K/ML * FOR ADULT BLACK MALES AND FEMALES, NORMAL RBC,HGB, AND HCT IS 5% LESS SOURCE FOR DATA: 23press 1800 OPERATION MANUAL( AUTOMATED BLOOD COUNTS AND DIFF.) APPENDIX B-3 CHRONIC KIDNEY DISEASE STAGING PER NKF: MALE GFR INTERPRETATION: 20-49 YRS: >60 mL/min Normal 50-59 YRS: >56 mL/min Normal 60-69 YRS: >49 mL/min Normal 70-79 YRS: >42 mL/min Normal 80 and above >35 mL/min Normal FEMALE GRF INTERPRETATION: 20-39 YRS: >60 mL/min Normal 40-49 YRS: >58 mL/min Normal 50-59 YRS: >51 mL/min Normal 60-69 YRS: >45 mL/min Normal 70-79 YRS: >39 mL/min Normal 80 and above >32 mL/min Normal HCT 36.0 % 37.0-51.0 Below low normal [facility] ( [facility] NORMAL RANGES Age WBC RBC HGB HCT MCV PLT Adult M 4.1-10.9 4.20-6.30 12.0-18.0 37.0-51.0 80-97 140-440 Adult F 4.1-10.9 4.04-5.48 12.0-18.0 37.0-51.0 80-97 140-440 0 -1 Yr 5.0-20.0 3.9-5.9 15-18 MV: 44 MV: 91 MV: 277 2-9 Yr. 6.0-17.0 3.8-5.4 11-13 MV: 37 MV: 78 MV: 300 10 Yrs. 5.0-13.0 3.8-5.4 12-15 MV: 39 MV: 80 MV: 250 NOTE: * FOR ADULT BLACK MALES AND FEMALES, NORMAL WBC IS 2.9-7.7 K/ML * FOR ADULT BLACK MALES AND FEMALES, NORMAL RBC,HGB, AND HCT IS 5% LESS SOURCE FOR DATA: 23press 1800 OPERATION MANUAL( AUTOMATED BLOOD COUNTS AND DIFF.) APPENDIX B-3 CHRONIC KIDNEY DISEASE STAGING PER NKF: MALE GFR INTERPRETATION: 20-49 YRS: >60 mL/min Normal 50-59 YRS: >56 mL/min Normal 60-69 YRS: >49 mL/min Normal 70-79 YRS: >42 mL/min Normal 80 and above >35 mL/min Normal FEMALE GRF INTERPRETATION: 20-39 YRS: >60 mL/min Normal 40-49 YRS: >58 mL/min Normal 50-59 YRS: >51 mL/min Normal 60-69 YRS: >45 mL/min Normal 70-79 YRS: >39 mL/min Normal 80 and above >32 mL/min Normal MCV 100.8 fL 80.0-97.0 Above high normal [facility] ([facility] NORMAL RANGES Age WBC RBC HGB HCT MCV PLT Adult M 4.1-10.9 4.20-6.30 12.0-18.0 37.0-51.0 80-97 140-440 Adult F 4.1-10.9 4.04-5.48 12.0-18.0 37.0-51.0 80-97 140-440 0 -1 Yr 5.0-20.0 3.9-5.9 15-18 MV: 44 MV: 91 MV: 277 2-9 Yr. 6.0-17.0 3.8-5.4 11-13 MV: 37 MV: 78 MV: 300 10 Yrs. 5.0-13.0 3.8-5.4 12-15 MV: 39 MV: 80 MV: 250 NOTE: * FOR ADULT BLACK MALES AND FEMALES, NORMAL WBC IS 2.9-7.7 K/ML * FOR ADULT BLACK MALES AND FEMALES, NORMAL RBC,HGB, AND HCT IS 5% LESS SOURCE FOR DATA: 23press 1800 OPERATION MANUAL( AUTOMATED BLOOD COUNTS AND DIFF.) APPENDIX B-3 CHRONIC KIDNEY DISEASE STAGING PER NKF: MALE GFR INTERPRETATION: 20-49 YRS: >60 mL/min Normal 50-59 YRS: >56 mL/min Normal 60-69 YRS: >49 mL/min Normal 70-79 YRS: >42 mL/min Normal 80 and above >35 mL/min Normal FEMALE GRF INTERPRETATION: 20-39 YRS: >60 mL/min Normal 40-49 YRS: >58 mL/min Normal 50-59 YRS: >51 mL/min Normal 60-69 YRS: >45 mL/min Normal 70-79 YRS: >39 mL/min Normal 80 and above >32 mL/min Normal MCH 31.9 pg 26.0-32.0 [facility] ([facility] NORMAL RANGES Age WBC RBC HGB HCT MCV PLT Adult M 4.1-10.9 4.20-6.30 12.0-18.0 37.0-51.0 80-97 140-440 Adult F 4.1-10.9 4.04-5.48 12.0-18.0 37.0-51.0 80-97 140-440 0 -1 Yr 5.0-20.0 3.9-5.9 15-18 MV: 44 MV: 91 MV: 277 2-9 Yr. 6.0-17.0 3.8-5.4 11-13 MV: 37 MV: 78 MV: 300 10 Yrs. 5.0-13.0 3.8-5.4 12-15 MV: 39 MV: 80 MV: 250 NOTE: * FOR ADULT BLACK MALES AND FEMALES, NORMAL WBC IS 2.9-7.7 K/ML * FOR ADULT BLACK MALES AND FEMALES, NORMAL RBC,HGB, AND HCT IS 5% LESS SOURCE FOR DATA: [employer] DYN 1800 OPERATION MANUAL( AUTOMATED BLOOD COUNTS AND DIFF.) APPENDIX B-3 CHRONIC KIDNEY DISEASE STAGING PER NKF: MALE GFR INTERPRETATION: 20-49 YRS: >60 mL/min Normal 50-59 YRS: >56 mL/min Normal 60-69 YRS: >49 mL/min Normal 70-79 YRS: >42 mL/min Normal 80 and above >35 mL/min Normal FEMALE GRF INTERPRETATION: 20-39 YRS: >60 mL/min Normal 40-49 YRS: >58 mL/min Normal 50-59 YRS: >51 mL/min Normal 60-69 YRS: >45 mL/min Normal 70-79 YRS: >39 mL/min Normal 80 and above >32 mL/min Normal PLT 414 10E3/uL 140-440 [facility] ([facility] NORMAL RANGES Age WBC RBC HGB HCT MCV PLT Adult M 4.1-10.9 4.20-6.30 12.0-18.0 37.0-51.0 80-97 140-440 Adult F 4.1-10.9 4.04-5.48 12.0-18.0 37.0-51.0 80-97 140-440 0 -1 Yr 5.0-20.0 3.9-5.9 15-18 MV: 44 MV: 91 MV: 277 2-9 Yr. 6.0-17.0 3.8-5.4 11-13 MV: 37 MV: 78 MV: 300 10 Yrs. 5.0-13.0 3.8-5.4 12-15 MV: 39 MV: 80 MV: 250 NOTE: * FOR ADULT BLACK MALES AND FEMALES, NORMAL WBC IS 2.9-7.7 K/ML * FOR ADULT BLACK MALES AND FEMALES, NORMAL RBC,HGB, AND HCT IS 5% LESS SOURCE FOR DATA: 23press 1800 OPERATION MANUAL( AUTOMATED BLOOD COUNTS AND DIFF.) APPENDIX B-3 CHRONIC KIDNEY DISEASE STAGING PER NKF: MALE GFR INTERPRETATION: 20-49 YRS: >60 mL/min Normal 50-59 YRS: >56 mL/min Normal 60-69 YRS: >49 mL/min Normal 70-79 YRS: >42 mL/min Normal 80 and above >35 mL/min Normal FEMALE GRF INTERPRETATION: 20-39 YRS: >60 mL/min Normal 40-49 YRS: >58 mL/min Normal 50-59 YRS: >51 mL/min Normal 60-69 YRS: >45 mL/min Normal 70-79 YRS: >39 mL/min Normal 80 and above >32 mL/min Normal MCHC 31.7 g/dL 31.0-36.0 [facility] ([facility] NORMAL RANGES Age WBC RBC HGB HCT MCV PLT Adult M 4.1-10.9 4.20-6.30 12.0-18.0 37.0-51.0 80-97 140-440 Adult F 4.1-10.9 4.04-5.48 12.0-18.0 37.0-51.0 80-97 140-440 0 -1 Yr 5.0-20.0 3.9-5.9 15-18 MV: 44 MV: 91 MV: 277 2-9 Yr. 6.0-17.0 3.8-5.4 11-13 MV: 37 MV: 78 MV: 300 10 Yrs. 5.0-13.0 3.8-5.4 12-15 MV: 39 MV: 80 MV: 250 NOTE: * FOR ADULT BLACK MALES AND FEMALES, NORMAL WBC IS 2.9-7.7 K/ML * FOR ADULT BLACK MALES AND FEMALES, NORMAL RBC,HGB, AND HCT IS 5% LESS SOURCE FOR DATA: 23press 1800 OPERATION MANUAL( AUTOMATED BLOOD COUNTS AND DIFF.) APPENDIX B-3 CHRONIC KIDNEY DISEASE STAGING PER NKF: MALE GFR INTERPRETATION: 20-49 YRS: >60 mL/min Normal 50-59 YRS: >56 mL/min Normal 60-69 YRS: >49 mL/min Normal 70-79 YRS: >42 mL/min Normal 80 and above >35 mL/min Normal FEMALE GRF INTERPRETATION: 20-39 YRS: >60 mL/min Normal 40-49 YRS: >58 mL/min Normal 50-59 YRS: >51 mL/min Normal 60-69 YRS: >45 mL/min Normal 70-79 YRS: >39 mL/min Normal 80 and above >32 mL/min Normal Neut% 78.7 % 37.0-92.0 [facility] NORMAL RANGES Age WBC RBC HGB HCT MCV PLT Adult M 4.1-10.9 4.20-6.30 12.0-18.0 37.0-51.0 80-97 140-440 Adult F 4.1-10.9 4.04-5.48 12.0-18.0 37.0-51.0 80- 140-440 0 -1 Yr 5.0-20.0 3.9-5.9 15-18 MV: 44 MV: 91 MV: 277 2-9 Yr. 6.0-17.0 3.8-5.4 11-13 MV: 37 MV: 78 MV: 300 10 Yrs. 5.0-13.0 3.8-5.4 12-15 MV: 39 MV: 80 MV: 250 NOTE: * FOR ADULT BLACK MALES AND FEMALES, NORMAL WBC IS 2.9-7.7 K/ML * FOR ADULT BLACK MALES AND FEMALES, NORMAL RBC,HGB, AND HCT IS 5% LESS SOURCE FOR DATA: [employer] DYN 1800 OPERATION MANUAL( AUTOMATED BLOOD COUNTS AND DIFF.) APPENDIX B-3 CHRONIC KIDNEY DISEASE STAGING PER NKF: MALE GFR INTERPRETATION: 20-49 YRS: >60 mL/min Normal 50-59 YRS: >56 mL/min Normal 60-69 YRS: >49 mL/min Normal 70-79 YRS: >42 mL/min Normal 80 and above >35 mL/min Normal FEMALE GRF INTERPRETATION: 20-39 YRS: >60 mL/min Normal 40-49 YRS: >58 mL/min Normal 50-59 YRS: >51 mL/min Normal 60-69 YRS: >45 mL/min Normal 70-79 YRS: >39 mL/min Normal 80 and above >32 mL/min Normal Lym% 15.7 % 10.0-58.5 [facility] NORMAL RANGES Age WBC RBC HGB HCT MCV PLT Adult M 4.1-10.9 4.20-6.30 12.0-18.0 37.0-51.0 80-97 140-440 Adult F 4.1-10.9 4.04-5.48 12.0-18.0 37.0-51.0 80-97 140-440 0 -1 Yr 5.0-20.0 3.9-5.9 15-18 MV: 44 MV: 91 MV: 277 2-9 Yr. 6.0-17.0 3.8-5.4 11-13 MV: 37 MV: 78 MV: 300 10 Yrs. 5.0-13.0 3.8-5.4 12-15 MV: 39 MV: 80 MV: 250 NOTE: * FOR ADULT BLACK MALES AND FEMALES, NORMAL WBC IS 2.9-7.7 K/ML * FOR ADULT BLACK MALES AND FEMALES, NORMAL RBC,HGB, AND HCT IS 5% LESS SOURCE FOR DATA: 23press 1800 OPERATION MANUAL( AUTOMATED BLOOD COUNTS AND DIFF.) APPENDIX B-3 CHRONIC KIDNEY DISEASE STAGING PER NKF: MALE GFR INTERPRETATION: 20-49 YRS: >60 mL/min Normal 50-59 YRS: >56 mL/min Normal 60-69 YRS: >49 mL/min Normal 70-79 YRS: >42 mL/min Normal 80 and above >35 mL/min Normal FEMALE GRF INTERPRETATION: 20-39 YRS: >60 mL/min Normal 40-49 YRS: >58 mL/min Normal 50-59 YRS: >51 mL/min Normal 60-69 YRS: >45 mL/min Normal 70-79 YRS: >39 mL/min Normal 80 and above >32 mL/min Normal RDW-CV 16.7 % 11.5-14.5 Above high normal [facility] ([facility] NORMAL RANGES Age WBC RBC HGB HCT MCV PLT Adult M 4.1-10.9 4.20-6.30 12.0-18.0 37.0-51.0 80-97 140-440 Adult F 4.1-10.9 4.04-5.48 12.0-18.0 37.0-51.0 80-97 140-440 0 -1 Yr 5.0-20.0 3.9-5.9 15-18 MV: 44 MV: 91 MV: 277 2-9 Yr. 6.0-17.0 3.8-5.4 11-13 MV: 37 MV: 78 MV: 300 10 Yrs. 5.0-13.0 3.8-5.4 12-15 MV: 39 MV: 80 MV: 250 NOTE: * FOR ADULT BLACK MALES AND FEMALES, NORMAL WBC IS 2.9-7.7 K/ML * FOR ADULT BLACK MALES AND FEMALES, NORMAL RBC,HGB, AND HCT IS 5% LESS SOURCE FOR DATA: 23press 1800 OPERATION MANUAL( AUTOMATED BLOOD COUNTS AND DIFF.) APPENDIX B-3 CHRONIC KIDNEY DISEASE STAGING PER NKF: MALE GFR INTERPRETATION: 20-49 YRS: >60 mL/min Normal 50-59 YRS: >56 mL/min Normal 60-69 YRS: >49 mL/min Normal 70-79 YRS: >42 mL/min Normal 80 and above >35 mL/min Normal FEMALE GRF INTERPRETATION: 20-39 YRS: >60 mL/min Normal 40-49 YRS: >58 mL/min Normal 50-59 YRS: >51 mL/min Normal 60-69 YRS: >45 mL/min Normal 70-79 YRS: >39 mL/min Normal 80 and above >32 mL/min Normal MXD% 5.6 % 0.1-24.0 [facility] NORMAL RANGES Age WBC RBC HGB HCT MCV PLT Adult M 4.1-10.9 4.20-6.30 12.0-18.0 37.0-51.0 80-97 140-440 Adult F 4.1-10.9 4.04-5.48 12.0-18.0 37.0-51.0 80-97 140-440 0 -1 Yr 5.0-20.0 3.9-5.9 15-18 MV: 44 MV: 91 MV: 277 2-9 Yr. 6.0-17.0 3.8-5.4 11-13 MV: 37 MV: 78 MV: 300 10 Yrs. 5.0-13.0 3.8-5.4 12-15 MV: 39 MV: 80 MV: 250 NOTE: * FOR ADULT BLACK MALES AND FEMALES, NORMAL WBC IS 2.9-7.7 K/ML * FOR ADULT BLACK MALES AND FEMALES, NORMAL RBC,HGB, AND HCT IS 5% LESS SOURCE FOR DATA: 23press 1800 OPERATION MANUAL( AUTOMATED BLOOD COUNTS AND DIFF.) APPENDIX B-3 CHRONIC KIDNEY DISEASE STAGING PER NKF: MALE GFR INTERPRETATION: 20-49 YRS: >60 mL/min Normal 50-59 YRS: >56 mL/min Normal 60-69 YRS: >49 mL/min Normal 70-79 YRS: >42 mL/min Normal 80 and above >35 mL/min Normal FEMALE GRF INTERPRETATION: 20-39 YRS: >60 mL/min Normal 40-49 YRS: >58 mL/min Normal 50-59 YRS: >51 mL/min Normal 60-69 YRS: >45 mL/min Normal 70-79 YRS: >39 mL/min Normal 80 and above >32 mL/min Normal Lym# 2.5 10E3/uL 0.6-4.1 [facility] ([facility] NORMAL RANGES Age WBC RBC HGB HCT MCV PLT Adult M 4.1-10.9 4.20-6.30 12.0-18.0 37.0-51.0 80-97 140-440 Adult F 4.1-10.9 4.04-5.48 12.0-18.0 37.0-51.0 80-97 140-440 0 -1 Yr 5.0-20.0 3.9-5.9 15-18 MV: 44 MV: 91 MV: 277 2-9 Yr. 6.0-17.0 3.8-5.4 11-13 MV: 37 MV: 78 MV: 300 10 Yrs. 5.0-13.0 3.8-5.4 12-15 MV: 39 MV: 80 MV: 250 NOTE: * FOR ADULT BLACK MALES AND FEMALES, NORMAL WBC IS 2.9-7.7 K/ML * FOR ADULT BLACK MALES AND FEMALES, NORMAL RBC,HGB, AND HCT IS 5% LESS SOURCE FOR DATA: 23press 1800 OPERATION MANUAL( AUTOMATED BLOOD COUNTS AND DIFF.) APPENDIX B-3 CHRONIC KIDNEY DISEASE STAGING PER NKF: MALE GFR INTERPRETATION: 20-49 YRS: >60 mL/min Normal 50-59 YRS: >56 mL/min Normal 60-69 YRS: >49 mL/min Normal 70-79 YRS: >42 mL/min Normal 80 and above >35 mL/min Normal FEMALE GRF INTERPRETATION: 20-39 YRS: >60 mL/min Normal 40-49 YRS: >58 mL/min Normal 50-59 YRS: >51 mL/min Normal 60-69 YRS: >45 mL/min Normal 70-79 YRS: >39 mL/min Normal 80 and above >32 mL/min Normal Neut# 12.7 % 2.0-7.8 Above high normal [facility] ([facility] NORMAL RANGES Age WBC RBC HGB HCT MCV PLT Adult M 4.1-10.9 4.20-6.30 12.0-18.0 37.0-51.0 80-97 140-440 Adult F 4.1-10.9 4.04-5.48 12.0-18.0 37.0-51.0 80-97 140-440 0 -1 Yr 5.0-20.0 3.9-5.9 15-18 MV: 44 MV: 91 MV: 277 2-9 Yr. 6.0-17.0 3.8-5.4 11-13 MV: 37 MV: 78 MV: 300 10 Yrs. 5.0-13.0 3.8-5.4 12-15 MV: 39 MV: 80 MV: 250 NOTE: * FOR ADULT BLACK MALES AND FEMALES, NORMAL WBC IS 2.9-7.7 K/ML * FOR ADULT BLACK MALES AND FEMALES, NORMAL RBC,HGB, AND HCT IS 5% LESS SOURCE FOR DATA: 23press 1800 OPERATION MANUAL( AUTOMATED BLOOD COUNTS AND DIFF.) APPENDIX B-3 CHRONIC KIDNEY DISEASE STAGING PER NKF: MALE GFR INTERPRETATION: 20-49 YRS: >60 mL/min Normal 50-59 YRS: >56 mL/min Normal 60-69 YRS: >49 mL/min Normal 70-79 YRS: >42 mL/min Normal 80 and above >35 mL/min Normal FEMALE GRF INTERPRETATION: 20-39 YRS: >60 mL/min Normal 40-49 YRS: >58 mL/min Normal 50-59 YRS: >51 mL/min Normal 60-69 YRS: >45 mL/min Normal 70-79 YRS: >39 mL/min Normal 80 and above >32 mL/min Normal MXD# 0.9 10E3/uL 0.0-1.8 [facility] ([facility] NORMAL RANGES Age WBC RBC HGB HCT MCV PLT Adult M 4.1-10.9 4.20-6.30 12.0-18.0 37.0-51.0 80-97 140-440 Adult F 4.1-10.9 4.04-5.48 12.0-18.0 37.0-51.0 80-97 140-440 0 -1 Yr 5.0-20.0 3.9-5.9 15-18 MV: 44 MV: 91 MV: 277 2-9 Yr. 6.0-17.0 3.8-5.4 11-13 MV: 37 MV: 78 MV: 300 10 Yrs. 5.0-13.0 3.8-5.4 12-15 MV: 39 MV: 80 MV: 250 NOTE: * FOR ADULT BLACK MALES AND FEMALES, NORMAL WBC IS 2.9-7.7 K/ML * FOR ADULT BLACK MALES AND FEMALES, NORMAL RBC,HGB, AND HCT IS 5% LESS SOURCE FOR DATA: 23press 1800 OPERATION MANUAL( AUTOMATED BLOOD COUNTS AND DIFF.) APPENDIX B-3 CHRONIC KIDNEY DISEASE STAGING PER NKF: MALE GFR INTERPRETATION: 20-49 YRS: >60 mL/min Normal 50-59 YRS: >56 mL/min Normal 60-69 YRS: >49 mL/min Normal 70-79 YRS: >42 mL/min Normal 80 and above >35 mL/min Normal FEMALE GRF INTERPRETATION: 20-39 YRS: >60 mL/min Normal 40-49 YRS: >58 mL/min Normal 50-59 YRS: >51 mL/min Normal 60-69 YRS: >45 mL/min Normal 70-79 YRS: >39 mL/min Normal 80 and above >32 mL/min Normal MPV 11.7 fL 9.0-13.0 [facility] ([facility] NORMAL RANGES Age WBC RBC HGB HCT MCV PLT Adult M 4.1-10.9 4.20-6.30 12.0-18.0 37.0-51.0 80-97 140-440 Adult F 4.1-10.9 4.04-5.48 12.0-18.0 37.0-51.0 80-97 140-440 0 -1 Yr 5.0-20.0 3.9-5.9 15-18 MV: 44 MV: 91 MV: 277 2-9 Yr. 6.0-17.0 3.8-5.4 11-13 MV: 37 MV: 78 MV: 300 10 Yrs. 5.0-13.0 3.8-5.4 12-15 MV: 39 MV: 80 MV: 250 NOTE: * FOR ADULT BLACK MALES AND FEMALES, NORMAL WBC IS 2.9-7.7 K/ML * FOR ADULT BLACK MALES AND FEMALES, NORMAL RBC,HGB, AND HCT IS 5% LESS SOURCE FOR DATA: 23press 1800 OPERATION MANUAL( AUTOMATED BLOOD COUNTS AND DIFF.) APPENDIX B-3 CHRONIC KIDNEY DISEASE STAGING PER NKF: MALE GFR INTERPRETATION: 20-49 YRS: >60 mL/min Normal 50-59 YRS: >56 mL/min Normal 60-69 YRS: >49 mL/min Normal 70-79 YRS: >42 mL/min Normal 80 and above >35 mL/min Normal FEMALE GRF INTERPRETATION: 20-39 YRS: >60 mL/min Normal 40-49 YRS: >58 mL/min Normal 50-59 YRS: >51 mL/min Normal 60-69 YRS: >45 mL/min Normal 70-79 YRS: >39 mL/min Normal 80 and above >32 mL/min Normal ID Date Data Source [id number] 08/31/2020 12:08:00 PM EDT [facility] ([facility] Name Value Range Interpretation Code Description Data Haylee rce(s) Supporting Document(s) Glu 106 mg/dL 70-110 [facility] NORMAL RANGES Age WBC RBC HGB HCT MCV PLT Adult M 4.1-10.9 4.20-6.30 12.0-18.0 37.0-51.0 80-97 140-440 Adult F 4.1-10.9 4.04-5.48 12.0-18.0 37.0-51.0 80-97 140-440 0 -1 Yr 5.0-20.0 3.9-5.9 15-18 MV: 44 MV: 91 MV: 277 2-9 Yr. 6.0-17.0 3.8-5.4 11-13 MV: 37 MV: 78 MV: 300 10 Yrs. 5.0-13.0 3.8-5.4 12-15 MV: 39 MV: 80 MV: 250 NOTE: * FOR ADULT BLACK MALES AND FEMALES, NORMAL WBC IS 2.9-7.7 K/ML * FOR ADULT BLACK MALES AND FEMALES, NORMAL RBC,HGB, AND HCT IS 5% LESS SOURCE FOR DATA: [employer] DYN 1800 OPERATION MANUAL( AUTOMATED BLOOD COUNTS AND DIFF.) APPENDIX B-3 CHRONIC KIDNEY DISEASE STAGING PER NKF: MALE GFR INTERPRETATION: 20-49 YRS: >60 mL/min Normal 50-59 YRS: >56 mL/min Normal 60-69 YRS: >49 mL/min Normal 70-79 YRS: >42 mL/min Normal 80 and above >35 mL/min Normal FEMALE GRF INTERPRETATION: 20-39 YRS: >60 mL/min Normal 40-49 YRS: >58 mL/min Normal 50-59 YRS: >51 mL/min Normal 60-69 YRS: >45 mL/min Normal 70-79 YRS: >39 mL/min Normal 80 and above >32 mL/min Normal Creat 1.8 mg/dL 0.5-1.0 Above high normal [facility] ([facility] NORMAL RANGES Age WBC RBC HGB HCT MCV PLT Adult M 4.1-10.9 4.20-6.30 12.0-18.0 37.0-51.0 80-97 140-440 Adult F 4.1-10.9 4.04-5.48 12.0-18.0 37.0-51.0 80-97 140-440 0 -1 Yr 5.0-20.0 3.9-5.9 15-18 MV: 44 MV: 91 MV: 277 2-9 Yr. 6.0-17.0 3.8-5.4 11-13 MV: 37 MV: 78 MV: 300 10 Yrs. 5.0-13.0 3.8-5.4 12-15 MV: 39 MV: 80 MV: 250 NOTE: * FOR ADULT BLACK MALES AND FEMALES, NORMAL WBC IS 2.9-7.7 K/ML * FOR ADULT BLACK MALES AND FEMALES, NORMAL RBC,HGB, AND HCT IS 5% LESS SOURCE FOR DATA: [employer] 1800 OPERATION MANUAL( AUTOMATED BLOOD COUNTS AND DIFF.) APPENDIX B-3 CHRONIC KIDNEY DISEASE STAGING PER NKF: MALE GFR INTERPRETATION: 20-49 YRS: >60 mL/min Normal 50-59 YRS: >56 mL/min Normal 60-69 YRS: >49 mL/min Normal 70-79 YRS: >42 mL/min Normal 80 and above >35 mL/min Normal FEMALE GRF INTERPRETATION: 20-39 YRS: >60 mL/min Normal 40-49 YRS: >58 mL/min Normal 50-59 YRS: >51 mL/min Normal 60-69 YRS: >45 mL/min Normal 70-79 YRS: >39 mL/min Normal 80 and above >32 mL/min Normal BUN/Creatinine Ratio 14.9 [facility] NORMAL RANGES Age WBC RBC HGB HCT MCV PLT Adult M 4.1-10.9 4.20-6.30 12.0-18.0 37.0-51.0 80-97 140-440 Adult F 4.1-10.9 4.04-5.48 12.0-18.0 37.0-51.0 80-97 140-440 0 -1 Yr 5.0-20.0 3.9-5.9 15-18 MV: 44 MV: 91 MV: 277 2-9 Yr. 6.0-17.0 3.8-5.4 11-13 MV: 37 MV: 78 MV: 300 10 Yrs. 5.0-13.0 3.8-5.4 12-15 MV: 39 MV: 80 MV: 250 NOTE: * FOR ADULT BLACK MALES AND FEMALES, NORMAL WBC IS 2.9-7.7 K/ML * FOR ADULT BLACK MALES AND FEMALES, NORMAL RBC,HGB, AND HCT IS 5% LESS SOURCE FOR DATA: [employer] 1800 OPERATION MANUAL( AUTOMATED BLOOD COUNTS AND DIFF.) APPENDIX B-3 CHRONIC KIDNEY DISEASE STAGING PER NKF: MALE GFR INTERPRETATION: 20-49 YRS: >60 mL/min Normal 50-59 YRS: >56 mL/min Normal 60-69 YRS: >49 mL/min Normal 70-79 YRS: >42 mL/min Normal 80 and above >35 mL/min Normal FEMALE GRF INTERPRETATION: 20-39 YRS: >60 mL/min Normal 40-49 YRS: >58 mL/min Normal 50-59 YRS: >51 mL/min Normal 60-69 YRS: >45 mL/min Normal 70-79 YRS: >39 mL/min Normal 80 and above >32 mL/min Normal BUN 27 mg/dL 8-23 Above high normal [facility] ([facility] NORMAL RANGES Age WBC RBC HGB HCT MCV PLT Adult M 4.1-10.9 4.20-6.30 12.0-18.0 37.0-51.0 80-97 140-440 Adult F 4.1-10.9 4.04-5.48 12.0-18.0 37.0-51.0 80-97 140-440 0 -1 Yr 5.0-20.0 3.9-5.9 15-18 MV: 44 MV: 91 MV: 277 2-9 Yr. 6.0-17.0 3.8-5.4 11-13 MV: 37 MV: 78 MV: 300 10 Yrs. 5.0-13.0 3.8-5.4 12-15 MV: 39 MV: 80 MV: 250 NOTE: * FOR ADULT BLACK MALES AND FEMALES, NORMAL WBC IS 2.9-7.7 K/ML * FOR ADULT BLACK MALES AND FEMALES, NORMAL RBC,HGB, AND HCT IS 5% LESS SOURCE FOR DATA: [employer]press 1800 OPERATION MANUAL( AUTOMATED BLOOD COUNTS AND DIFF.) APPENDIX B-3 CHRONIC KIDNEY DISEASE STAGING PER NKF: MALE GFR INTERPRETATION: 20-49 YRS: >60 mL/min Normal 50-59 YRS: >56 mL/min Normal 60-69 YRS: >49 mL/min Normal 70-79 YRS: >42 mL/min Normal 80 and above >35 mL/min Normal FEMALE GRF INTERPRETATION: 20-39 YRS: >60 mL/min Normal 40-49 YRS: >58 mL/min Normal 50-59 YRS: >51 mL/min Normal 60-69 YRS: >45 mL/min Normal 70-79 YRS: >39 mL/min Normal 80 and above >32 mL/min Normal Co2 26.6 mmol/L 22.0-29.0 [facility] ([facility] NORMAL RANGES Age WBC RBC HGB HCT MCV PLT Adult M 4.1-10.9 4.20-6.30 12.0-18.0 37.0-51.0 80-97 140-440 Adult F 4.1-10.9 4.04-5.48 12.0-18.0 37.0-51.0 80-97 140-440 0 -1 Yr 5.0-20.0 3.9-5.9 15-18 MV: 44 MV: 91 MV: 277 2-9 Yr. 6.0-17.0 3.8-5.4 11-13 MV: 37 MV: 78 MV: 300 10 Yrs. 5.0-13.0 3.8-5.4 12-15 MV: 39 MV: 80 MV: 250 NOTE: * FOR ADULT BLACK MALES AND FEMALES, NORMAL WBC IS 2.9-7.7 K/ML * FOR ADULT BLACK MALES AND FEMALES, NORMAL RBC,HGB, AND HCT IS 5% LESS SOURCE FOR DATA: 23press 1800 OPERATION MANUAL( AUTOMATED BLOOD COUNTS AND DIFF.) APPENDIX B-3 CHRONIC KIDNEY DISEASE STAGING PER NKF: MALE GFR INTERPRETATION: 20-49 YRS: >60 mL/min Normal 50-59 YRS: >56 mL/min Normal 60-69 YRS: >49 mL/min Normal 70-79 YRS: >42 mL/min Normal 80 and above >35 mL/min Normal FEMALE GRF INTERPRETATION: 20-39 YRS: >60 mL/min Normal 40-49 YRS: >58 mL/min Normal 50-59 YRS: >51 mL/min Normal 60-69 YRS: >45 mL/min Normal 70-79 YRS: >39 mL/min Normal 80 and above >32 mL/min Normal CA 8.7 mg/dL 8.6-10.2 [facility] NORMAL RANGES Age WBC RBC HGB HCT MCV PLT Adult M 4.1-10.9 4.20-6.30 12.0-18.0 37.0-51.0 80-97 140-440 Adult F 4.1-10.9 4.04-5.48 12.0-18.0 37.0-51.0 80-97 140-440 0 -1 Yr 5.0-20.0 3.9-5.9 15-18 MV: 44 MV: 91 MV: 277 2-9 Yr. 6.0-17.0 3.8-5.4 11-13 MV: 37 MV: 78 MV: 300 10 Yrs. 5.0-13.0 3.8-5.4 12-15 MV: 39 MV: 80 MV: 250 NOTE: * FOR ADULT BLACK MALES AND FEMALES, NORMAL WBC IS 2.9-7.7 K/ML * FOR ADULT BLACK MALES AND FEMALES, NORMAL RBC,HGB, AND HCT IS 5% LESS SOURCE FOR DATA: 23press 1800 OPERATION MANUAL( AUTOMATED BLOOD COUNTS AND DIFF.) APPENDIX B-3 CHRONIC KIDNEY DISEASE STAGING PER NKF: MALE GFR INTERPRETATION: 20-49 YRS: >60 mL/min Normal 50-59 YRS: >56 mL/min Normal 60-69 YRS: >49 mL/min Normal 70-79 YRS: >42 mL/min Normal 80 and above >35 mL/min Normal FEMALE GRF INTERPRETATION: 20-39 YRS: >60 mL/min Normal 40-49 YRS: >58 mL/min Normal 50-59 YRS: >51 mL/min Normal 60-69 YRS: >45 mL/min Normal 70-79 YRS: >39 mL/min Normal 80 and above >32 mL/min Normal Na 138 mmol/L 136-145 [facility] NORMAL RANGES Age WBC RBC HGB HCT MCV PLT Adult M 4.1-10.9 4.20-6.30 12.0-18.0 37.0-51.0 80-97 140-440 Adult F 4.1-10.9 4.04-5.48 12.0-18.0 37.0-51.0 80-97 140-440 0 -1 Yr 5.0-20.0 3.9-5.9 15-18 MV: 44 MV: 91 MV: 277 2-9 Yr. 6.0-17.0 3.8-5.4 11-13 MV: 37 MV: 78 MV: 300 10 Yrs. 5.0-13.0 3.8-5.4 12-15 MV: 39 MV: 80 MV: 250 NOTE: * FOR ADULT BLACK MALES AND FEMALES, NORMAL WBC IS 2.9-7.7 K/ML * FOR ADULT BLACK MALES AND FEMALES, NORMAL RBC,HGB, AND HCT IS 5% LESS SOURCE FOR DATA: 23press 1800 OPERATION MANUAL( AUTOMATED BLOOD COUNTS AND DIFF.) APPENDIX B-3 CHRONIC KIDNEY DISEASE STAGING PER NKF: MALE GFR INTERPRETATION: 20-49 YRS: >60 mL/min Normal 50-59 YRS: >56 mL/min Normal 60-69 YRS: >49 mL/min Normal 70-79 YRS: >42 mL/min Normal 80 and above >35 mL/min Normal FEMALE GRF INTERPRETATION: 20-39 YRS: >60 mL/min Normal 40-49 YRS: >58 mL/min Normal 50-59 YRS: >51 mL/min Normal 60-69 YRS: >45 mL/min Normal 70-79 YRS: >39 mL/min Normal 80 and above >32 mL/min Normal K 4.2 mmol/L 3.5-5.1 [facility] ([facility] NORMAL RANGES Age WBC RBC HGB HCT MCV PLT Adult M 4.1-10.9 4.20-6.30 12.0-18.0 37.0-51.0 80-97 140-440 Adult F 4.1-10.9 4.04-5.48 12.0-18.0 37.0-51.0 80-97 140-440 0 -1 Yr 5.0-20.0 3.9-5.9 15-18 MV: 44 MV: 91 MV: 277 2-9 Yr. 6.0-17.0 3.8-5.4 11-13 MV: 37 MV: 78 MV: 300 10 Yrs. 5.0-13.0 3.8-5.4 12-15 MV: 39 MV: 80 MV: 250 NOTE: * FOR ADULT BLACK MALES AND FEMALES, NORMAL WBC IS 2.9-7.7 K/ML * FOR ADULT BLACK MALES AND FEMALES, NORMAL RBC,HGB, AND HCT IS 5% LESS SOURCE FOR DATA: 23press 1800 OPERATION MANUAL( AUTOMATED BLOOD COUNTS AND DIFF.) APPENDIX B-3 CHRONIC KIDNEY DISEASE STAGING PER NKF: MALE GFR INTERPRETATION: 20-49 YRS: >60 mL/min Normal 50-59 YRS: >56 mL/min Normal 60-69 YRS: >49 mL/min Normal 70-79 YRS: >42 mL/min Normal 80 and above >35 mL/min Normal FEMALE GRF INTERPRETATION: 20-39 YRS: >60 mL/min Normal 40-49 YRS: >58 mL/min Normal 50-59 YRS: >51 mL/min Normal 60-69 YRS: >45 mL/min Normal 70-79 YRS: >39 mL/min Normal 80 and above >32 mL/min Normal Anion Gap 17 mmol/L [facility] NORMAL RANGES Age WBC RBC HGB HCT MCV PLT Adult M 4.1-10.9 4.20-6.30 12.0-18.0 37.0-51.0 80-97 140-440 Adult F 4.1-10.9 4.04-5.48 12.0-18.0 37.0-51.0 80-97 140-440 0 -1 Yr 5.0-20.0 3.9-5.9 15-18 MV: 44 MV: 91 MV: 277 2-9 Yr. 6.0-17.0 3.8-5.4 11-13 MV: 37 MV: 78 MV: 300 10 Yrs. 5.0-13.0 3.8-5.4 12-15 MV: 39 MV: 80 MV: 250 NOTE: * FOR ADULT BLACK MALES AND FEMALES, NORMAL WBC IS 2.9-7.7 K/ML * FOR ADULT BLACK MALES AND FEMALES, NORMAL RBC,HGB, AND HCT IS 5% LESS SOURCE FOR DATA: 23press 1800 OPERATION MANUAL( AUTOMATED BLOOD COUNTS AND DIFF.) APPENDIX B-3 CHRONIC KIDNEY DISEASE STAGING PER NKF: MALE GFR INTERPRETATION: 20-49 YRS: >60 mL/min Normal 50-59 YRS: >56 mL/min Normal 60-69 YRS: >49 mL/min Normal 70-79 YRS: >42 mL/min Normal 80 and above >35 mL/min Normal FEMALE GRF INTERPRETATION: 20-39 YRS: >60 mL/min Normal 40-49 YRS: >58 mL/min Normal 50-59 YRS: >51 mL/min Normal 60-69 YRS: >45 mL/min Normal 70-79 YRS: >39 mL/min Normal 80 and above >32 mL/min Normal CL 98.1 mmol/L 98.0-107.0 [facility] ([facility] NORMAL RANGES Age WBC RBC HGB HCT MCV PLT Adult M 4.1-10.9 4.20-6.30 12.0-18.0 37.0-51.0 80-97 140-440 Adult F 4.1-10.9 4.04-5.48 12.0-18.0 37.0-51.0 80-97 140-440 0 -1 Yr 5.0-20.0 3.9-5.9 15-18 MV: 44 MV: 91 MV: 277 2-9 Yr. 6.0-17.0 3.8-5.4 11-13 MV: 37 MV: 78 MV: 300 10 Yrs. 5.0-13.0 3.8-5.4 12-15 MV: 39 MV: 80 MV: 250 NOTE: * FOR ADULT BLACK MALES AND FEMALES, NORMAL WBC IS 2.9-7.7 K/ML * FOR ADULT BLACK MALES AND FEMALES, NORMAL RBC,HGB, AND HCT IS 5% LESS SOURCE FOR DATA: [employer] DYN 1800 OPERATION MANUAL( AUTOMATED BLOOD COUNTS AND DIFF.) APPENDIX B-3 CHRONIC KIDNEY DISEASE STAGING PER NKF: MALE GFR INTERPRETATION: 20-49 YRS: >60 mL/min Normal 50-59 YRS: >56 mL/min Normal 60-69 YRS: >49 mL/min Normal 70-79 YRS: >42 mL/min Normal 80 and above >35 mL/min Normal FEMALE GRF INTERPRETATION: 20-39 YRS: >60 mL/min Normal 40-49 YRS: >58 mL/min Normal 50-59 YRS: >51 mL/min Normal 60-69 YRS: >45 mL/min Normal 70-79 YRS: >39 mL/min Normal 80 and above >32 mL/min Normal eGFR Non-Afr. [place] 28 # [facility] ([facility] NORMAL RANGES Age WBC RBC HGB HCT MCV PLT Adult M 4.1-10.9 4.20-6.30 12.0-18.0 37.0-51.0 80-97 140-440 Adult F 4.1-10.9 4.04-5.48 12.0-18.0 37.0-51.0 80-97 140-440 0 -1 Yr 5.0-20.0 3.9-5.9 15-18 MV: 44 MV: 91 MV: 277 2-9 Yr. 6.0-17.0 3.8-5.4 11-13 MV: 37 MV: 78 MV: 300 10 Yrs. 5.0-13.0 3.8-5.4 12-15 MV: 39 MV: 80 MV: 250 NOTE: * FOR ADULT BLACK MALES AND FEMALES, NORMAL WBC IS 2.9-7.7 K/ML * FOR ADULT BLACK MALES AND FEMALES, NORMAL RBC,HGB, AND HCT IS 5% LESS SOURCE FOR DATA: [employer] DYN 1800 OPERATION MANUAL( AUTOMATED BLOOD COUNTS AND DIFF.) APPENDIX B-3 CHRONIC KIDNEY DISEASE STAGING PER NKF: MALE GFR INTERPRETATION: 20-49 YRS: >60 mL/min Normal 50-59 YRS: >56 mL/min Normal 60-69 YRS: >49 mL/min Normal 70-79 YRS: >42 mL/min Normal 80 and above >35 mL/min Normal FEMALE GRF INTERPRETATION: 20-39 YRS: >60 mL/min Normal 40-49 YRS: >58 mL/min Normal 50-59 YRS: >51 mL/min Normal 60-69 YRS: >45 mL/min Normal 70-79 YRS: >39 mL/min Normal 80 and above >32 mL/min Normal eGFR 32 # [facility] ( [facility] NORMAL RANGES Age WBC RBC HGB HCT MCV PLT Adult M 4.1-10.9 4.20-6.30 12.0-18.0 37.0-51.0 80-97 140-440 Adult F 4.1-10.9 4.04-5.48 12.0-18.0 37.0-51.0 80-97 140-440 0 -1 Yr 5.0-20.0 3.9-5.9 15-18 MV: 44 MV: 91 MV: 277 2-9 Yr. 6.0-17.0 3.8-5.4 11-13 MV: 37 MV: 78 MV: 300 10 Yrs. 5.0-13.0 3.8-5.4 12-15 MV: 39 MV: 80 MV: 250 NOTE: * FOR ADULT BLACK MALES AND FEMALES, NORMAL WBC IS 2.9-7.7 K/ML * FOR ADULT BLACK MALES AND FEMALES, NORMAL RBC,HGB, AND HCT IS 5% LESS SOURCE FOR DATA: 23press 1800 OPERATION MANUAL( AUTOMATED BLOOD COUNTS AND DIFF.) APPENDIX B-3 CHRONIC KIDNEY DISEASE STAGING PER NKF: MALE GFR INTERPRETATION: 20-49 YRS: >60 mL/min Normal 50-59 YRS: >56 mL/min Normal 60-69 YRS: >49 mL/min Normal 70-79 YRS: >42 mL/min Normal 80 and above >35 mL/min Normal FEMALE GRF INTERPRETATION: 20-39 YRS: >60 mL/min Normal 40-49 YRS: >58 mL/min Normal 50-59 YRS: >51 mL/min Normal 60-69 YRS: >45 mL/min Normal 70-79 YRS: >39 mL/min Normal 80 and above >32 mL/min Normal ID Date Data Source [id number] 08/23/2020 12:32:00 PM EDT [facility] Name Value Range Interpretation Code Description Data Haylee rce(s) Supporting Document(s) Glucose [Mass/volume] in Capillary blood by Glucometer 132 mg/dL 80-115 Above high normal [facility] ([facility] ) ID Date Data Source [id number] 08/23/2020 10:50:00 AM EDT [facility] ([facility] Name Value Range Interpretation Code Description Data Haylee rce(s) Supporting Document(s) Glucose [Mass/volume] in Capillary blood by Glucometer 228 mg/dL 80-115 Above high normal [facility] ([facility] ) ID Date Data Source [id number] 08/23/2020 10:26:00 AM EDT [facility] ([facility] Name Value Range Interpretation Code Description Data Haylee rce(s) Supporting Document(s) Glucose [Mass/volume] in Capillary blood by Glucometer 63 mg/dL 80-115 Below low normal [facility] ([facility] ) ID Date Data Source [id number] 08/23/2020 07:33:00 AM EDT [facility] ([facility] Name Value Range Interpretation Code Description Data Haylee rce(s) Supporting Document(s) Glucose [Mass/volume] in Capillary blood by Glucometer 229 mg/dL 80-115 Above high normal [facility] ([facility] ) ID Date Data Source [id number] 08/23/2020 07:10:00 AM EDT [facility] ([facility] Name Value Range Interpretation Code Description Data Haylee rce(s) Supporting Document(s) Glucose [Mass/volume] in Capillary blood by Glucometer 31 mg/dL 80-115 Below lower panic limits [facility] ([facility] ) ID Date Data Source [id number] 08/07/2020 02:31:00 PM EDT [facility] ([facility]) Name Value Range Interpretation Code Description Data Haylee rce(s) Supporting Document(s) Glucose 116 [facility] Blood Urea Nitrogen 22.3 [facility] ([facility]) Creatinine 1.5 [facility] Potassium 3.85 [facility] Glomerular filtration rate/1.73 sq M.pre dicted [Volume Rate/Area] in Serum or Plasma by Creatinine-based formula (MDRD) 34 [facility] Sodium 136.6 [facility] Chloride 105.3 [facility] Carbon Dioxide 28.4 [facility] ([facility]) Calcium 8.2 [facility] Phosphorus 3.6 [facility] Albumin 3.3 [facility] ID Date Data Source [id number] 08/07/2020 02:31:00 PM EDT [facility] ([facility]) Name Value Range Interpretation Code Description Data Haylee rce(s) Supporting Document(s) White Blood Count 12.5 [facility] ([facility]) Red Blood Count 3.42 [facility] ([facility]) Platelets 319 [facility] ([facility] Hemoglobin 10.6 [facility] ([facility]) Hematocrit 34.1 [facility] ([facility]) ID Date Data Source [id number] 08/04/2020 09:16:00 AM EST [facility] ([facility] Name Value Range Interpretation Code Description Data Haylee rce(s) Supporting Document(s) Comment 1 Laboratory test result ME D[facility] ([facility] Color Urine Laboratory test result M [facility] ([facility] Appearance of Urine Laboratory test result [facility] ([facility] Specific [place] 1.020 1.00-1.03 [facility] ([facility] PH Urine 6.0 5.0-8.0 [facility] ([facility] Glucose Urine Laboratory test result [facility] ([facility] Bilirubin.total [Presence] in Urine by Test strip Laboratory test res ult [facility] ([facility] Ketones Laboratory test result [facility] ([facility] Protein Urine Laboratory test result Above high normal [facility] ([facility] Blood Urine Laboratory test result M [facility] ([facility] Nitrite Laboratory test result [facility] ([facility] Urobilinogen 0.2 EU/dl 0.2-1.0 [facility] ([facility] Leukocytes Laboratory test result [facility] ([facility] ID Date Data Source [id number] 08/04/2020 09:16:00 AM EST [facility] ([facility] Name Value Range Interpretation Code Description Data Haylee rce(s) Supporting Document(s) Hemoglobin A1c/Hemoglobin.total in Blood 6.4 % 4.50-6.20 Above high normal [facility] ([facility] ID Date Data Source [id number] 08/04/2020 09:00:00 AM EST [facility] ([facility] Name Value Range Interpretation Code Description Data Haylee rce(s) Supporting Document(s) Creatine kinase [Enzymatic activity/volume] in Serum or Plasma 55 U /L 26-192 [facility] ([facility] NORMAL RANGES Age WBC RBC HGB HCT MCV PLT Adult M 4.1-10.9 4.20-6.30 12.0-18.0 37.0-51.0 80-97 140-440 Adult F 4.1-10.9 4.04-5.48 12.0-18.0 37.0-51.0 80-97 140-440 0 -1 Yr 5.0-20.0 3.9-5.9 15-18 MV: 44 MV: 91 MV: 277 2-9 Yr. 6.0-17.0 3.8-5.4 11-13 MV: 37 MV: 78 MV: 300 10 Yrs. 5.0-13.0 3.8-5.4 12-15 MV: 39 MV: 80 MV: 250 NOTE: * FOR ADULT BLACK MALES AND FEMALES, NORMAL WBC IS 2.9-7.7 K/ML * FOR ADULT BLACK MALES AND FEMALES, NORMAL RBC,HGB, AND HCT IS 5% LESS SOURCE FOR DATA: 23press 1800 OPERATION MANUAL( AUTOMATED BLOOD COUNTS AND DIFF.) APPENDIX B-3 CHRONIC KIDNEY DISEASE STAGING PER NKF: MALE GFR INTERPRETATION: 20-49 YRS: >60 mL/min Normal 50-59 YRS: >56 mL/min Normal 60-69 YRS: >49 mL/min Normal 70-79 YRS: >42 mL/min Normal 80 and above >35 mL/min Normal FEMALE GRF INTERPRETATION: 20-39 YRS: >60 mL/min Normal 40-49 YRS: >58 mL/min Normal 50-59 YRS: >51 mL/min Normal 60-69 YRS: >45 mL/min Normal 70-79 YRS: >39 mL/min Normal 80 and above >32 mL/min NormalCLASSIFICATION CHOLESTEROL FOR ADULTS CHILDREN/ADOLESCENTS* DESIRABLE: <200 MG/DL <170 MG/DL BORDER-LINE HIGH RISK: 200-239 MG/DL 170-199 MG/DL HIGH RISK: >240 MG/DL >200 MG/DL CLASS. FOR PRIMARY LDL CHOL PREVENTION: LDL CHOL-CHILD/ADOLESCENTS* DESIRABLE: <130 MG/DL <110 MG/DL BORDERLINE-HIGH RISK: 130-159 MG/DL 110-129 MG/DL HIGH RISK: >160 MG/DL >130 MG/DL *CHILDREN AND ADOLESCENTS REPRESENTS INDIVIDUALA AGED 2-19 YEARS EXCLUSIVE. ID Date Data Source [id number] 08/04/2020 09:00:00 AM EST [facility] ([facility] Name Value Range Interpretation Code Description Data Haylee rce(s) Supporting Document(s) Glu 144 mg/dL 70-110 Above high normal [facility] ([facility] NORMAL RANGES Age WBC RBC HGB HCT MCV PLT Adult M 4.1-10.9 4.20-6.30 12.0-18.0 37.0-51.0 80-97 140-440 Adult F 4.1-10.9 4.04-5.48 12.0-18.0 37.0-51.0 80-97 140-440 0 -1 Yr 5.0-20.0 3.9-5.9 15-18 MV: 44 MV: 91 MV: 277 2-9 Yr. 6.0-17.0 3.8-5.4 11-13 MV: 37 MV: 78 MV: 300 10 Yrs. 5.0-13.0 3.8-5.4 12-15 MV: 39 MV: 80 MV: 250 NOTE: * FOR ADULT BLACK MALES AND FEMALES, NORMAL WBC IS 2.9-7.7 K/ML * FOR ADULT BLACK MALES AND FEMALES, NORMAL RBC,HGB, AND HCT IS 5% LESS SOURCE FOR DATA: 23press 1800 OPERATION MANUAL( AUTOMATED BLOOD COUNTS AND DIFF.) APPENDIX B-3 CHRONIC KIDNEY DISEASE STAGING PER NKF: MALE GFR INTERPRETATION: 20-49 YRS: >60 mL/min Normal 50-59 YRS: >56 mL/min Normal 60-69 YRS: >49 mL/min Normal 70-79 YRS: >42 mL/min Normal 80 and above >35 mL/min Normal FEMALE GRF INTERPRETATION: 20-39 YRS: >60 mL/min Normal 40-49 YRS: >58 mL/min Normal 50-59 YRS: >51 mL/min Normal 60-69 YRS: >45 mL/min Normal 70-79 YRS: >39 mL/min Normal 80 and above >32 mL/min NormalCLASSIFICATION CHOLESTEROL FOR ADULTS CHILDREN/ADOLESCENTS* DESIRABLE: <200 MG/DL <170 MG/DL BORDER-LINE HIGH RISK: 200-239 MG/DL 170-199 MG/DL HIGH RISK: >240 MG/DL >200 MG/DL CLASS. FOR PRIMARY LDL CHOL PREVENTION: LDL CHOL-CHILD/ADOLESCENTS* DESIRABLE: <130 MG/DL <110 MG/DL BORDERLINE-HIGH RISK: 130-159 MG/DL 110-129 MG/DL HIGH RISK: >160 MG/DL >130 MG/DL *CHILDREN AND ADOLESCENTS REPRESENTS INDIVIDUALA AGED 2-19 YEARS EXCLUSIVE. Creat 1.5 mg/dL 0.5-1.0 Above high normal [facility] ([facility] NORMAL RANGES Age WBC RBC HGB HCT MCV PLT Adult M 4.1-10.9 4.20-6.30 12.0-18.0 37.0-51.0 80-97 140-440 Adult F 4.1-10.9 4.04-5.48 12.0-18.0 37.0-51.0 80-97 140-440 0 -1 Yr 5.0-20.0 3.9-5.9 15-18 MV: 44 MV: 91 MV: 277 2-9 Yr. 6.0-17.0 3.8-5.4 11-13 MV: 37 MV: 78 MV: 300 10 Yrs. 5.0-13.0 3.8-5.4 12-15 MV: 39 MV: 80 MV: 250 NOTE: * FOR ADULT BLACK MALES AND FEMALES, NORMAL WBC IS 2.9-7.7 K/ML * FOR ADULT BLACK MALES AND FEMALES, NORMAL RBC,HGB, AND HCT IS 5% LESS SOURCE FOR DATA: 23press 1800 OPERATION MANUAL( AUTOMATED BLOOD COUNTS AND DIFF.) APPENDIX B-3 CHRONIC KIDNEY DISEASE STAGING PER NKF: MALE GFR INTERPRETATION: 20-49 YRS: >60 mL/min Normal 50-59 YRS: >56 mL/min Normal 60-69 YRS: >49 mL/min Normal 70-79 YRS: >42 mL/min Normal 80 and above >35 mL/min Normal FEMALE GRF INTERPRETATION: 20-39 YRS: >60 mL/min Normal 40-49 YRS: >58 mL/min Normal 50-59 YRS: >51 mL/min Normal 60-69 YRS: >45 mL/min Normal 70-79 YRS: >39 mL/min Normal 80 and above >32 mL/min NormalCLASSIFICATION CHOLESTEROL FOR ADULTS CHILDREN/ADOLESCENTS* DESIRABLE: <200 MG/DL <170 MG/DL BORDER-LINE HIGH RISK: 200-239 MG/DL 170-199 MG/DL HIGH RISK: >240 MG/DL >200 MG/DL CLASS. FOR PRIMARY LDL CHOL PREVENTION: LDL CHOL-CHILD/ADOLESCENTS* DESIRABLE: <130 MG/DL <110 MG/DL BORDERLINE-HIGH RISK: 130-159 MG/DL 110-129 MG/DL HIGH RISK: >160 MG/DL >130 MG/DL *CHILDREN AND ADOLESCENTS REPRESENTS INDIVIDUALA AGED 2-19 YEARS EXCLUSIVE. BUN 23 mg/dL 8-23 [facility] ([facility] NORMAL RANGES Age WBC RBC HGB HCT MCV PLT Adult M 4.1-10.9 4.20-6.30 12.0-18.0 37.0-51.0 80-97 140-440 Adult F 4.1-10.9 4.04-5.48 12.0-18.0 37.0-51.0 80-97 140-440 0 -1 Yr 5.0-20.0 3.9-5.9 15-18 MV: 44 MV: 91 MV: 277 2-9 Yr. 6.0-17.0 3.8-5.4 11-13 MV: 37 MV: 78 MV: 300 10 Yrs. 5.0-13.0 3.8-5.4 12-15 MV: 39 MV: 80 MV: 250 NOTE: * FOR ADULT BLACK MALES AND FEMALES, NORMAL WBC IS 2.9-7.7 K/ML * FOR ADULT BLACK MALES AND FEMALES, NORMAL RBC,HGB, AND HCT IS 5% LESS SOURCE FOR DATA: 23press 1800 OPERATION MANUAL( AUTOMATED BLOOD COUNTS AND DIFF.) APPENDIX B-3 CHRONIC KIDNEY DISEASE STAGING PER NKF: MALE GFR INTERPRETATION: 20-49 YRS: >60 mL/min Normal 50-59 YRS: >56 mL/min Normal 60-69 YRS: >49 mL/min Normal 70-79 YRS: >42 mL/min Normal 80 and above >35 mL/min Normal FEMALE GRF INTERPRETATION: 20-39 YRS: >60 mL/min Normal 40-49 YRS: >58 mL/min Normal 50-59 YRS: >51 mL/min Normal 60-69 YRS: >45 mL/min Normal 70-79 YRS: >39 mL/min Normal 80 and above >32 mL/min NormalCLASSIFICATION CHOLESTEROL FOR ADULTS CHILDREN/ADOLESCENTS* DESIRABLE: <200 MG/DL <170 MG/DL BORDER-LINE HIGH RISK: 200-239 MG/DL 170-199 MG/DL HIGH RISK: >240 MG/DL >200 MG/DL CLASS. FOR PRIMARY LDL CHOL PREVENTION: LDL CHOL-CHILD/ADOLESCENTS* DESIRABLE: <130 MG/DL <110 MG/DL BORDERLINE-HIGH RISK: 130-159 MG/DL 110-129 MG/DL HIGH RISK: >160 MG/DL >130 MG/DL *CHILDREN AND ADOLESCENTS REPRESENTS INDIVIDUALA AGED 2-19 YEARS EXCLUSIVE. Na 135 mmol/L 136-145 Below low normal [facility] ( [facility] NORMAL RANGES Age WBC RBC HGB HCT MCV PLT Adult M 4.1-10.9 4.20-6.30 12.0-18.0 37.0-51.0 80-97 140-440 Adult F 4.1-10.9 4.04-5.48 12.0-18.0 37.0-51.0 80-97 140-440 0 -1 Yr 5.0-20.0 3.9-5.9 15-18 MV: 44 MV: 91 MV: 277 2-9 Yr. 6.0-17.0 3.8-5.4 11-13 MV: 37 MV: 78 MV: 300 10 Yrs. 5.0-13.0 3.8-5.4 12-15 MV: 39 MV: 80 MV: 250 NOTE: * FOR ADULT BLACK MALES AND FEMALES, NORMAL WBC IS 2.9-7.7 K/ML * FOR ADULT BLACK MALES AND FEMALES, NORMAL RBC,HGB, AND HCT IS 5% LESS SOURCE FOR DATA: 23press 1800 OPERATION MANUAL( AUTOMATED BLOOD COUNTS AND DIFF.) APPENDIX B-3 CHRONIC KIDNEY DISEASE STAGING PER NKF: MALE GFR INTERPRETATION: 20-49 YRS: >60 mL/min Normal 50-59 YRS: >56 mL/min Normal 60-69 YRS: >49 mL/min Normal 70-79 YRS: >42 mL/min Normal 80 and above >35 mL/min Normal FEMALE GRF INTERPRETATION: 20-39 YRS: >60 mL/min Normal 40-49 YRS: >58 mL/min Normal 50-59 YRS: >51 mL/min Normal 60-69 YRS: >45 mL/min Normal 70-79 YRS: >39 mL/min Normal 80 and above >32 mL/min NormalCLASSIFICATION CHOLESTEROL FOR ADULTS CHILDREN/ADOLESCENTS* DESIRABLE: <200 MG/DL <170 MG/DL BORDER-LINE HIGH RISK: 200-239 MG/DL 170-199 MG/DL HIGH RISK: >240 MG/DL >200 MG/DL CLASS. FOR PRIMARY LDL CHOL PREVENTION: LDL CHOL-CHILD/ADOLESCENTS* DESIRABLE: <130 MG/DL <110 MG/DL BORDERLINE-HIGH RISK: 130-159 MG/DL 110-129 MG/DL HIGH RISK: >160 MG/DL >130 MG/DL *CHILDREN AND ADOLESCENTS REPRESENTS INDIVIDUALA AGED 2-19 YEARS EXCLUSIVE. BUN/Creatinine Ratio 14.7 [facility] ([facility] NORMAL RANGES Age WBC RBC HGB HCT MCV PLT Adult M 4.1-10.9 4.20-6.30 12.0-18.0 37.0-51.0 80-97 140-440 Adult F 4.1-10.9 4.04-5.48 12.0-18.0 37.0-51.0 80-97 140-440 0 -1 Yr 5.0-20.0 3.9-5.9 15-18 MV: 44 MV: 91 MV: 277 2-9 Yr. 6.0-17.0 3.8-5.4 11-13 MV: 37 MV: 78 MV: 300 10 Yrs. 5.0-13.0 3.8-5.4 12-15 MV: 39 MV: 80 MV: 250 NOTE: * FOR ADULT BLACK MALES AND FEMALES, NORMAL WBC IS 2.9-7.7 K/ML * FOR ADULT BLACK MALES AND FEMALES, NORMAL RBC,HGB, AND HCT IS 5% LESS SOURCE FOR DATA: 23press 1800 OPERATION MANUAL( AUTOMATED BLOOD COUNTS AND DIFF.) APPENDIX B-3 CHRONIC KIDNEY DISEASE STAGING PER NKF: MALE GFR INTERPRETATION: 20-49 YRS: >60 mL/min Normal 50-59 YRS: >56 mL/min Normal 60-69 YRS: >49 mL/min Normal 70-79 YRS: >42 mL/min Normal 80 and above >35 mL/min Normal FEMALE GRF INTERPRETATION: 20-39 YRS: >60 mL/min Normal 40-49 YRS: >58 mL/min Normal 50-59 YRS: >51 mL/min Normal 60-69 YRS: >45 mL/min Normal 70-79 YRS: >39 mL/min Normal 80 and above >32 mL/min NormalCLASSIFICATION CHOLESTEROL FOR ADULTS CHILDREN/ADOLESCENTS* DESIRABLE: <200 MG/DL <170 MG/DL BORDER-LINE HIGH RISK: 200-239 MG/DL 170-199 MG/DL HIGH RISK: >240 MG/DL >200 MG/DL CLASS. FOR PRIMARY LDL CHOL PREVENTION: LDL CHOL-CHILD/ADOLESCENTS* DESIRABLE: <130 MG/DL <110 MG/DL BORDERLINE-HIGH RISK: 130-159 MG/DL 110-129 MG/DL HIGH RISK: >160 MG/DL >130 MG/DL *CHILDREN AND ADOLESCENTS REPRESENTS INDIVIDUALA AGED 2-19 YEARS EXCLUSIVE. K 4.6 mmol/L 3.5-5.1 [facility] ([facility] NORMAL RANGES Age WBC RBC HGB HCT MCV PLT Adult M 4.1-10.9 4.20-6.30 12.0-18.0 37.0-51.0 80-97 140-440 Adult F 4.1-10.9 4.04-5.48 12.0-18.0 37.0-51.0 80-97 140-440 0 -1 Yr 5.0-20.0 3.9-5.9 15-18 MV: 44 MV: 91 MV: 277 2-9 Yr. 6.0-17.0 3.8-5.4 11-13 MV: 37 MV: 78 MV: 300 10 Yrs. 5.0-13.0 3.8-5.4 12-15 MV: 39 MV: 80 MV: 250 NOTE: * FOR ADULT BLACK MALES AND FEMALES, NORMAL WBC IS 2.9-7.7 K/ML * FOR ADULT BLACK MALES AND FEMALES, NORMAL RBC,HGB, AND HCT IS 5% LESS SOURCE FOR DATA: GAGAN DYN 1800 OPERATION MANUAL( AUTOMATED BLOOD COUNTS AND DIFF.) APPENDIX B-3 CHRONIC KIDNEY DISEASE STAGING PER NKF: MALE GFR INTERPRETATION: 20-49 YRS: >60 mL/min Normal 50-59 YRS: >56 mL/min Normal 60-69 YRS: >49 mL/min Normal 70-79 YRS: >42 mL/min Normal 80 and above >35 mL/min Normal FEMALE GRF INTERPRETATION: 20-39 YRS: >60 mL/min Normal 40-49 YRS: >58 mL/min Normal 50-59 YRS: >51 mL/min Normal 60-69 YRS: >45 mL/min Normal 70-79 YRS: >39 mL/min Normal 80 and above >32 mL/min NormalCLASSIFICATION CHOLESTEROL FOR ADULTS CHILDREN/ADOLESCENTS* DESIRABLE: <200 MG/DL <170 MG/DL BORDER-LINE HIGH RISK: 200-239 MG/DL 170-199 MG/DL HIGH RISK: >240 MG/DL >200 MG/DL CLASS. FOR PRIMARY LDL CHOL PREVENTION: LDL CHOL-CHILD/ADOLESCENTS* DESIRABLE: <130 MG/DL <110 MG/DL BORDERLINE-HIGH RISK: 130-159 MG/DL 110-129 MG/DL HIGH RISK: >160 MG/DL >130 MG/DL *CHILDREN AND ADOLESCENTS REPRESENTS INDIVIDUALA AGED 2-19 YEARS EXCLUSIVE. CL 102.8 mmol/L 98.0-107.0 [facility] NORMAL RANGES Age WBC RBC HGB HCT MCV PLT Adult M 4.1-10.9 4.20-6.30 12.0-18.0 37.0-51.0 80-97 140-440 Adult F 4.1-10.9 4.04-5.48 12.0-18.0 37.0-51.0 80-97 140-440 0 -1 Yr 5.0-20.0 3.9-5.9 15-18 MV: 44 MV: 91 MV: 277 2-9 Yr. 6.0-17.0 3.8-5.4 11-13 MV: 37 MV: 78 MV: 300 10 Yrs. 5.0-13.0 3.8-5.4 12-15 MV: 39 MV: 80 MV: 250 NOTE: * FOR ADULT BLACK MALES AND FEMALES, NORMAL WBC IS 2.9-7.7 K/ML * FOR ADULT BLACK MALES AND FEMALES, NORMAL RBC,HGB, AND HCT IS 5% LESS SOURCE FOR DATA: 23press 1800 OPERATION MANUAL( AUTOMATED BLOOD COUNTS AND DIFF.) APPENDIX B-3 CHRONIC KIDNEY DISEASE STAGING PER NKF: MALE GFR INTERPRETATION: 20-49 YRS: >60 mL/min Normal 50-59 YRS: >56 mL/min Normal 60-69 YRS: >49 mL/min Normal 70-79 YRS: >42 mL/min Normal 80 and above >35 mL/min Normal FEMALE GRF INTERPRETATION: 20-39 YRS: >60 mL/min Normal 40-49 YRS: >58 mL/min Normal 50-59 YRS: >51 mL/min Normal 60-69 YRS: >45 mL/min Normal 70-79 YRS: >39 mL/min Normal 80 and above >32 mL/min NormalCLASSIFICATION CHOLESTEROL FOR ADULTS CHILDREN/ADOLESCENTS* DESIRABLE: <200 MG/DL <170 MG/DL BORDER-LINE HIGH RISK: 200-239 MG/DL 170-199 MG/DL HIGH RISK: >240 MG/DL >200 MG/DL CLASS. FOR PRIMARY LDL CHOL PREVENTION: LDL CHOL-CHILD/ADOLESCENTS* DESIRABLE: <130 MG/DL <110 MG/DL BORDERLINE-HIGH RISK: 130-159 MG/DL 110-129 MG/DL HIGH RISK: >160 MG/DL >130 MG/DL *CHILDREN AND ADOLESCENTS REPRESENTS INDIVIDUALA AGED 2-19 YEARS EXCLUSIVE. Co2 23.2 mmol/L 22.0-29.0 [facility] ([facility] NORMAL RANGES Age WBC RBC HGB HCT MCV PLT Adult M 4.1-10.9 4.20-6.30 12.0-18.0 37.0-51.0 80-97 140-440 Adult F 4.1-10.9 4.04-5.48 12.0-18.0 37.0-51.0 80-97 140-440 0 -1 Yr 5.0-20.0 3.9-5.9 15-18 MV: 44 MV: 91 MV: 277 2-9 Yr. 6.0-17.0 3.8-5.4 11-13 MV: 37 MV: 78 MV: 300 10 Yrs. 5.0-13.0 3.8-5.4 12-15 MV: 39 MV: 80 MV: 250 NOTE: * FOR ADULT BLACK MALES AND FEMALES, NORMAL WBC IS 2.9-7.7 K/ML * FOR ADULT BLACK MALES AND FEMALES, NORMAL RBC,HGB, AND HCT IS 5% LESS SOURCE FOR DATA: 23press 1800 OPERATION MANUAL( AUTOMATED BLOOD COUNTS AND DIFF.) APPENDIX B-3 CHRONIC KIDNEY DISEASE STAGING PER NKF: MALE GFR INTERPRETATION: 20-49 YRS: >60 mL/min Normal 50-59 YRS: >56 mL/min Normal 60-69 YRS: >49 mL/min Normal 70-79 YRS: >42 mL/min Normal 80 and above >35 mL/min Normal FEMALE GRF INTERPRETATION: 20-39 YRS: >60 mL/min Normal 40-49 YRS: >58 mL/min Normal 50-59 YRS: >51 mL/min Normal 60-69 YRS: >45 mL/min Normal 70-79 YRS: >39 mL/min Normal 80 and above >32 mL/min NormalCLASSIFICATION CHOLESTEROL FOR ADULTS CHILDREN/ADOLESCENTS* DESIRABLE: <200 MG/DL <170 MG/DL BORDER-LINE HIGH RISK: 200-239 MG/DL 170-199 MG/DL HIGH RISK: >240 MG/DL >200 MG/DL CLASS. FOR PRIMARY LDL CHOL PREVENTION: LDL CHOL-CHILD/ADOLESCENTS* DESIRABLE: <130 MG/DL <110 MG/DL BORDERLINE-HIGH RISK: 130-159 MG/DL 110-129 MG/DL HIGH RISK: >160 MG/DL >130 MG/DL *CHILDREN AND ADOLESCENTS REPRESENTS INDIVIDUALA AGED 2-19 YEARS EXCLUSIVE. CA 8.6 mg/dL 8.6-10.2 [facility] NORMAL RANGES Age WBC RBC HGB HCT MCV PLT Adult M 4.1-10.9 4.20-6.30 12.0-18.0 37.0-51.0 80-97 140-440 Adult F 4.1-10.9 4.04-5.48 12.0-18.0 37.0-51.0 80-97 140-440 0 -1 Yr 5.0-20.0 3.9-5.9 15-18 MV: 44 MV: 91 MV: 277 2-9 Yr. 6.0-17.0 3.8-5.4 11-13 MV: 37 MV: 78 MV: 300 10 Yrs. 5.0-13.0 3.8-5.4 12-15 MV: 39 MV: 80 MV: 250 NOTE: * FOR ADULT BLACK MALES AND FEMALES, NORMAL WBC IS 2.9-7.7 K/ML * FOR ADULT BLACK MALES AND FEMALES, NORMAL RBC,HGB, AND HCT IS 5% LESS SOURCE FOR DATA: [employer] DYN 1800 OPERATION MANUAL( AUTOMATED BLOOD COUNTS AND DIFF.) APPENDIX B-3 CHRONIC KIDNEY DISEASE STAGING PER NKF: MALE GFR INTERPRETATION: 20-49 YRS: >60 mL/min Normal 50-59 YRS: >56 mL/min Normal 60-69 YRS: >49 mL/min Normal 70-79 YRS: >42 mL/min Normal 80 and above >35 mL/min Normal FEMALE GRF INTERPRETATION: 20-39 YRS: >60 mL/min Normal 40-49 YRS: >58 mL/min Normal 50-59 YRS: >51 mL/min Normal 60-69 YRS: >45 mL/min Normal 70-79 YRS: >39 mL/min Normal 80 and above >32 mL/min NormalCLASSIFICATION CHOLESTEROL FOR ADULTS CHILDREN/ADOLESCENTS* DESIRABLE: <200 MG/DL <170 MG/DL BORDER-LINE HIGH RISK: 200-239 MG/DL 170-199 MG/DL HIGH RISK: >240 MG/DL >200 MG/DL CLASS. FOR PRIMARY LDL CHOL PREVENTION: LDL CHOL-CHILD/ADOLESCENTS* DESIRABLE: <130 MG/DL <110 MG/DL BORDERLINE-HIGH RISK: 130-159 MG/DL 110-129 MG/DL HIGH RISK: >160 MG/DL >130 MG/DL *CHILDREN AND ADOLESCENTS REPRESENTS INDIVIDUALA AGED 2-19 YEARS EXCLUSIVE. TP 5.1 g/dL 6.6-8.7 Below low normal [facility] ( [facility] NORMAL RANGES Age WBC RBC HGB HCT MCV PLT Adult M 4.1-10.9 4.20-6.30 12.0-18.0 37.0-51.0 80-97 140-440 Adult F 4.1-10.9 4.04-5.48 12.0-18.0 37.0-51.0 80-97 140-440 0 -1 Yr 5.0-20.0 3.9-5.9 15-18 MV: 44 MV: 91 MV: 277 2-9 Yr. 6.0-17.0 3.8-5.4 11-13 MV: 37 MV: 78 MV: 300 10 Yrs. 5.0-13.0 3.8-5.4 12-15 MV: 39 MV: 80 MV: 250 NOTE: * FOR ADULT BLACK MALES AND FEMALES, NORMAL WBC IS 2.9-7.7 K/ML * FOR ADULT BLACK MALES AND FEMALES, NORMAL RBC,HGB, AND HCT IS 5% LESS SOURCE FOR DATA: 23press 1800 OPERATION MANUAL( AUTOMATED BLOOD COUNTS AND DIFF.) APPENDIX B-3 CHRONIC KIDNEY DISEASE STAGING PER NKF: MALE GFR INTERPRETATION: 20-49 YRS: >60 mL/min Normal 50-59 YRS: >56 mL/min Normal 60-69 YRS: >49 mL/min Normal 70-79 YRS: >42 mL/min Normal 80 and above >35 mL/min Normal FEMALE GRF INTERPRETATION: 20-39 YRS: >60 mL/min Normal 40-49 YRS: >58 mL/min Normal 50-59 YRS: >51 mL/min Normal 60-69 YRS: >45 mL/min Normal 70-79 YRS: >39 mL/min Normal 80 and above >32 mL/min NormalCLASSIFICATION CHOLESTEROL FOR ADULTS CHILDREN/ADOLESCENTS* DESIRABLE: <200 MG/DL <170 MG/DL BORDER-LINE HIGH RISK: 200-239 MG/DL 170-199 MG/DL HIGH RISK: >240 MG/DL >200 MG/DL CLASS. FOR PRIMARY LDL CHOL PREVENTION: LDL CHOL-CHILD/ADOLESCENTS* DESIRABLE: <130 MG/DL <110 MG/DL BORDERLINE-HIGH RISK: 130-159 MG/DL 110-129 MG/DL HIGH RISK: >160 MG/DL >130 MG/DL *CHILDREN AND ADOLESCENTS REPRESENTS INDIVIDUALA AGED 2-19 YEARS EXCLUSIVE. Alb 3.1 g/dL 3.4-4.8 Below low normal [facility] ( [facility] NORMAL RANGES Age WBC RBC HGB HCT MCV PLT Adult M 4.1-10.9 4.20-6.30 12.0-18.0 37.0-51.0 80-97 140-440 Adult F 4.1-10.9 4.04-5.48 12.0-18.0 37.0-51.0 80-97 140-440 0 -1 Yr 5.0-20.0 3.9-5.9 15-18 MV: 44 MV: 91 MV: 277 2-9 Yr. 6.0-17.0 3.8-5.4 11-13 MV: 37 MV: 78 MV: 300 10 Yrs. 5.0-13.0 3.8-5.4 12-15 MV: 39 MV: 80 MV: 250 NOTE: * FOR ADULT BLACK MALES AND FEMALES, NORMAL WBC IS 2.9-7.7 K/ML * FOR ADULT BLACK MALES AND FEMALES, NORMAL RBC,HGB, AND HCT IS 5% LESS SOURCE FOR DATA: 23press 1800 OPERATION MANUAL( AUTOMATED BLOOD COUNTS AND DIFF.) APPENDIX B-3 CHRONIC KIDNEY DISEASE STAGING PER NKF: MALE GFR INTERPRETATION: 20-49 YRS: >60 mL/min Normal 50-59 YRS: >56 mL/min Normal 60-69 YRS: >49 mL/min Normal 70-79 YRS: >42 mL/min Normal 80 and above >35 mL/min Normal FEMALE GRF INTERPRETATION: 20-39 YRS: >60 mL/min Normal 40-49 YRS: >58 mL/min Normal 50-59 YRS: >51 mL/min Normal 60-69 YRS: >45 mL/min Normal 70-79 YRS: >39 mL/min Normal 80 and above >32 mL/min NormalCLASSIFICATION CHOLESTEROL FOR ADULTS CHILDREN/ADOLESCENTS* DESIRABLE: <200 MG/DL <170 MG/DL BORDER-LINE HIGH RISK: 200-239 MG/DL 170-199 MG/DL HIGH RISK: >240 MG/DL >200 MG/DL CLASS. FOR PRIMARY LDL CHOL PREVENTION: LDL CHOL-CHILD/ADOLESCENTS* DESIRABLE: <130 MG/DL <110 MG/DL BORDERLINE-HIGH RISK: 130-159 MG/DL 110-129 MG/DL HIGH RISK: >160 MG/DL >130 MG/DL *CHILDREN AND ADOLESCENTS REPRESENTS INDIVIDUALA AGED 2-19 YEARS EXCLUSIVE. Globulin 2.0 [facility] ([facility] NORMAL RANGES Age WBC RBC HGB HCT MCV PLT Adult M 4.1-10.9 4.20-6.30 12.0-18.0 37.0-51.0 80-97 140-440 Adult F 4.1-10.9 4.04-5.48 12.0-18.0 37.0-51.0 80-97 140-440 0 -1 Yr 5.0-20.0 3.9-5.9 15-18 MV: 44 MV: 91 MV: 277 2-9 Yr. 6.0-17.0 3.8-5.4 11-13 MV: 37 MV: 78 MV: 300 10 Yrs. 5.0-13.0 3.8-5.4 12-15 MV: 39 MV: 80 MV: 250 NOTE: * FOR ADULT BLACK MALES AND FEMALES, NORMAL WBC IS 2.9-7.7 K/ML * FOR ADULT BLACK MALES AND FEMALES, NORMAL RBC,HGB, AND HCT IS 5% LESS SOURCE FOR DATA: 23press 1800 OPERATION MANUAL( AUTOMATED BLOOD COUNTS AND DIFF.) APPENDIX B-3 CHRONIC KIDNEY DISEASE STAGING PER NKF: MALE GFR INTERPRETATION: 20-49 YRS: >60 mL/min Normal 50-59 YRS: >56 mL/min Normal 60-69 YRS: >49 mL/min Normal 70-79 YRS: >42 mL/min Normal 80 and above >35 mL/min Normal FEMALE GRF INTERPRETATION: 20-39 YRS: >60 mL/min Normal 40-49 YRS: >58 mL/min Normal 50-59 YRS: >51 mL/min Normal 60-69 YRS: >45 mL/min Normal 70-79 YRS: >39 mL/min Normal 80 and above >32 mL/min NormalCLASSIFICATION CHOLESTEROL FOR ADULTS CHILDREN/ADOLESCENTS* DESIRABLE: <200 MG/DL <170 MG/DL BORDER-LINE HIGH RISK: 200-239 MG/DL 170-199 MG/DL HIGH RISK: >240 MG/DL >200 MG/DL CLASS. FOR PRIMARY LDL CHOL PREVENTION: LDL CHOL-CHILD/ADOLESCENTS* DESIRABLE: <130 MG/DL <110 MG/DL BORDERLINE-HIGH RISK: 130-159 MG/DL 110-129 MG/DL HIGH RISK: >160 MG/DL >130 MG/DL *CHILDREN AND ADOLESCENTS REPRESENTS INDIVIDUALA AGED 2-19 YEARS EXCLUSIVE. A/G Ratio 1.5 [facility] ([facility] NORMAL RANGES Age WBC RBC HGB HCT MCV PLT Adult M 4.1-10.9 4.20-6.30 12.0-18.0 37.0-51.0 80-97 140-440 Adult F 4.1-10.9 4.04-5.48 12.0-18.0 37.0-51.0 80-97 140-440 0 -1 Yr 5.0-20.0 3.9-5.9 15-18 MV: 44 MV: 91 MV: 277 2-9 Yr. 6.0-17.0 3.8-5.4 11-13 MV: 37 MV: 78 MV: 300 10 Yrs. 5.0-13.0 3.8-5.4 12-15 MV: 39 MV: 80 MV: 250 NOTE: * FOR ADULT BLACK MALES AND FEMALES, NORMAL WBC IS 2.9-7.7 K/ML * FOR ADULT BLACK MALES AND FEMALES, NORMAL RBC,HGB, AND HCT IS 5% LESS SOURCE FOR DATA: 23press 1800 OPERATION MANUAL( AUTOMATED BLOOD COUNTS AND DIFF.) APPENDIX B-3 CHRONIC KIDNEY DISEASE STAGING PER NKF: MALE GFR INTERPRETATION: 20-49 YRS: >60 mL/min Normal 50-59 YRS: >56 mL/min Normal 60-69 YRS: >49 mL/min Normal 70-79 YRS: >42 mL/min Normal 80 and above >35 mL/min Normal FEMALE GRF INTERPRETATION: 20-39 YRS: >60 mL/min Normal 40-49 YRS: >58 mL/min Normal 50-59 YRS: >51 mL/min Normal 60-69 YRS: >45 mL/min Normal 70-79 YRS: >39 mL/min Normal 80 and above >32 mL/min NormalCLASSIFICATION CHOLESTEROL FOR ADULTS CHILDREN/ADOLESCENTS* DESIRABLE: <200 MG/DL <170 MG/DL BORDER-LINE HIGH RISK: 200-239 MG/DL 170-199 MG/DL HIGH RISK: >240 MG/DL >200 MG/DL CLASS. FOR PRIMARY LDL CHOL PREVENTION: LDL CHOL-CHILD/ADOLESCENTS* DESIRABLE: <130 MG/DL <110 MG/DL BORDERLINE-HIGH RISK: 130-159 MG/DL 110-129 MG/DL HIGH RISK: >160 MG/DL >130 MG/DL *CHILDREN AND ADOLESCENTS REPRESENTS INDIVIDUALA AGED 2-19 YEARS EXCLUSIVE. Alp 84.0 U/L 35-129 [facility] ([facility] NORMAL RANGES Age WBC RBC HGB HCT MCV PLT Adult M 4.1-10.9 4.20-6.30 12.0-18.0 37.0-51.0 80-97 140-440 Adult F 4.1-10.9 4.04-5.48 12.0-18.0 37.0-51.0 80-97 140-440 0 -1 Yr 5.0-20.0 3.9-5.9 15-18 MV: 44 MV: 91 MV: 277 2-9 Yr. 6.0-17.0 3.8-5.4 11-13 MV: 37 MV: 78 MV: 300 10 Yrs. 5.0-13.0 3.8-5.4 12-15 MV: 39 MV: 80 MV: 250 NOTE: * FOR ADULT BLACK MALES AND FEMALES, NORMAL WBC IS 2.9-7.7 K/ML * FOR ADULT BLACK MALES AND FEMALES, NORMAL RBC,HGB, AND HCT IS 5% LESS SOURCE FOR DATA: 23press 1800 OPERATION MANUAL( AUTOMATED BLOOD COUNTS AND DIFF.) APPENDIX B-3 CHRONIC KIDNEY DISEASE STAGING PER NKF: MALE GFR INTERPRETATION: 20-49 YRS: >60 mL/min Normal 50-59 YRS: >56 mL/min Normal 60-69 YRS: >49 mL/min Normal 70-79 YRS: >42 mL/min Normal 80 and above >35 mL/min Normal FEMALE GRF INTERPRETATION: 20-39 YRS: >60 mL/min Normal 40-49 YRS: >58 mL/min Normal 50-59 YRS: >51 mL/min Normal 60-69 YRS: >45 mL/min Normal 70-79 YRS: >39 mL/min Normal 80 and above >32 mL/min NormalCLASSIFICATION CHOLESTEROL FOR ADULTS CHILDREN/ADOLESCENTS* DESIRABLE: <200 MG/DL <170 MG/DL BORDER-LINE HIGH RISK: 200-239 MG/DL 170-199 MG/DL HIGH RISK: >240 MG/DL >200 MG/DL CLASS. FOR PRIMARY LDL CHOL PREVENTION: LDL CHOL-CHILD/ADOLESCENTS* DESIRABLE: <130 MG/DL <110 MG/DL BORDERLINE-HIGH RISK: 130-159 MG/DL 110-129 MG/DL HIGH RISK: >160 MG/DL >130 MG/DL *CHILDREN AND ADOLESCENTS REPRESENTS INDIVIDUALA AGED 2-19 YEARS EXCLUSIVE. Alt (SGPT) 17 U/L 0-41 [facility] ([facility] NORMAL RANGES Age WBC RBC HGB HCT MCV PLT Adult M 4.1-10.9 4.20-6.30 12.0-18.0 37.0-51.0 80-97 140-440 Adult F 4.1-10.9 4.04-5.48 12.0-18.0 37.0-51.0 80-97 140-440 0 -1 Yr 5.0-20.0 3.9-5.9 15-18 MV: 44 MV: 91 MV: 277 2-9 Yr. 6.0-17.0 3.8-5.4 11-13 MV: 37 MV: 78 MV: 300 10 Yrs. 5.0-13.0 3.8-5.4 12-15 MV: 39 MV: 80 MV: 250 NOTE: * FOR ADULT BLACK MALES AND FEMALES, NORMAL WBC IS 2.9-7.7 K/ML * FOR ADULT BLACK MALES AND FEMALES, NORMAL RBC,HGB, AND HCT IS 5% LESS SOURCE FOR DATA: 23press 1800 OPERATION MANUAL( AUTOMATED BLOOD COUNTS AND DIFF.) APPENDIX B-3 CHRONIC KIDNEY DISEASE STAGING PER NKF: MALE GFR INTERPRETATION: 20-49 YRS: >60 mL/min Normal 50-59 YRS: >56 mL/min Normal 60-69 YRS: >49 mL/min Normal 70-79 YRS: >42 mL/min Normal 80 and above >35 mL/min Normal FEMALE GRF INTERPRETATION: 20-39 YRS: >60 mL/min Normal 40-49 YRS: >58 mL/min Normal 50-59 YRS: >51 mL/min Normal 60-69 YRS: >45 mL/min Normal 70-79 YRS: >39 mL/min Normal 80 and above >32 mL/min NormalCLASSIFICATION CHOLESTEROL FOR ADULTS CHILDREN/ADOLESCENTS* DESIRABLE: <200 MG/DL <170 MG/DL BORDER-LINE HIGH RISK: 200-239 MG/DL 170-199 MG/DL HIGH RISK: >240 MG/DL >200 MG/DL CLASS. FOR PRIMARY LDL CHOL PREVENTION: LDL CHOL-CHILD/ADOLESCENTS* DESIRABLE: <130 MG/DL <110 MG/DL BORDERLINE-HIGH RISK: 130-159 MG/DL 110-129 MG/DL HIGH RISK: >160 MG/DL >130 MG/DL *CHILDREN AND ADOLESCENTS REPRESENTS INDIVIDUALA AGED 2-19 YEARS EXCLUSIVE. Tbili 0.18 mg/dL 0.0-1.2 [facility] ([facility] NORMAL RANGES Age WBC RBC HGB HCT MCV PLT Adult M 4.1-10.9 4.20-6.30 12.0-18.0 37.0-51.0 80-97 140-440 Adult F 4.1-10.9 4.04-5.48 12.0-18.0 37.0-51.0 80-97 140-440 0 -1 Yr 5.0-20.0 3.9-5.9 15-18 MV: 44 MV: 91 MV: 277 2-9 Yr. 6.0-17.0 3.8-5.4 11-13 MV: 37 MV: 78 MV: 300 10 Yrs. 5.0-13.0 3.8-5.4 12-15 MV: 39 MV: 80 MV: 250 NOTE: * FOR ADULT BLACK MALES AND FEMALES, NORMAL WBC IS 2.9-7.7 K/ML * FOR ADULT BLACK MALES AND FEMALES, NORMAL RBC,HGB, AND HCT IS 5% LESS SOURCE FOR DATA: 23press 1800 OPERATION MANUAL( AUTOMATED BLOOD COUNTS AND DIFF.) APPENDIX B-3 CHRONIC KIDNEY DISEASE STAGING PER NKF: MALE GFR INTERPRETATION: 20-49 YRS: >60 mL/min Normal 50-59 YRS: >56 mL/min Normal 60-69 YRS: >49 mL/min Normal 70-79 YRS: >42 mL/min Normal 80 and above >35 mL/min Normal FEMALE GRF INTERPRETATION: 20-39 YRS: >60 mL/min Normal 40-49 YRS: >58 mL/min Normal 50-59 YRS: >51 mL/min Normal 60-69 YRS: >45 mL/min Normal 70-79 YRS: >39 mL/min Normal 80 and above >32 mL/min NormalCLASSIFICATION CHOLESTEROL FOR ADULTS CHILDREN/ADOLESCENTS* DESIRABLE: <200 MG/DL <170 MG/DL BORDER-LINE HIGH RISK: 200-239 MG/DL 170-199 MG/DL HIGH RISK: >240 MG/DL >200 MG/DL CLASS. FOR PRIMARY LDL CHOL PREVENTION: LDL CHOL-CHILD/ADOLESCENTS* DESIRABLE: <130 MG/DL <110 MG/DL BORDERLINE-HIGH RISK: 130-159 MG/DL 110-129 MG/DL HIGH RISK: >160 MG/DL >130 MG/DL *CHILDREN AND ADOLESCENTS REPRESENTS INDIVIDUALA AGED 2-19 YEARS EXCLUSIVE. Ast (Sgot) 16 U/L 0-40 [facility] ([facility] NORMAL RANGES Age WBC RBC HGB HCT MCV PLT Adult M 4.1-10.9 4.20-6.30 12.0-18.0 37.0-51.0 80-97 140-440 Adult F 4.1-10.9 4.04-5.48 12.0-18.0 37.0-51.0 80-97 140-440 0 -1 Yr 5.0-20.0 3.9-5.9 15-18 MV: 44 MV: 91 MV: 277 2-9 Yr. 6.0-17.0 3.8-5.4 11-13 MV: 37 MV: 78 MV: 300 10 Yrs. 5.0-13.0 3.8-5.4 12-15 MV: 39 MV: 80 MV: 250 NOTE: * FOR ADULT BLACK MALES AND FEMALES, NORMAL WBC IS 2.9-7.7 K/ML * FOR ADULT BLACK MALES AND FEMALES, NORMAL RBC,HGB, AND HCT IS 5% LESS SOURCE FOR DATA: 23press 1800 OPERATION MANUAL( AUTOMATED BLOOD COUNTS AND DIFF.) APPENDIX B-3 CHRONIC KIDNEY DISEASE STAGING PER NKF: MALE GFR INTERPRETATION: 20-49 YRS: >60 mL/min Normal 50-59 YRS: >56 mL/min Normal 60-69 YRS: >49 mL/min Normal 70-79 YRS: >42 mL/min Normal 80 and above >35 mL/min Normal FEMALE GRF INTERPRETATION: 20-39 YRS: >60 mL/min Normal 40-49 YRS: >58 mL/min Normal 50-59 YRS: >51 mL/min Normal 60-69 YRS: >45 mL/min Normal 70-79 YRS: >39 mL/min Normal 80 and above >32 mL/min NormalCLASSIFICATION CHOLESTEROL FOR ADULTS CHILDREN/ADOLESCENTS* DESIRABLE: <200 MG/DL <170 MG/DL BORDER-LINE HIGH RISK: 200-239 MG/DL 170-199 MG/DL HIGH RISK: >240 MG/DL >200 MG/DL CLASS. FOR PRIMARY LDL CHOL PREVENTION: LDL CHOL-CHILD/ADOLESCENTS* DESIRABLE: <130 MG/DL <110 MG/DL BORDERLINE-HIGH RISK: 130-159 MG/DL 110-129 MG/DL HIGH RISK: >160 MG/DL >130 MG/DL *CHILDREN AND ADOLESCENTS REPRESENTS INDIVIDUALA AGED 2-19 YEARS EXCLUSIVE. Osmolality-Calculated 275.9 [facility] ([facility] NORMAL RANGES Age WBC RBC HGB HCT MCV PLT Adult M 4.1-10.9 4.20-6.30 12.0-18.0 37.0-51.0 80-97 140-440 Adult F 4.1-10.9 4.04-5.48 12.0-18.0 37.0-51.0 80-97 140-440 0 -1 Yr 5.0-20.0 3.9-5.9 15-18 MV: 44 MV: 91 MV: 277 2-9 Yr. 6.0-17.0 3.8-5.4 11-13 MV: 37 MV: 78 MV: 300 10 Yrs. 5.0-13.0 3.8-5.4 12-15 MV: 39 MV: 80 MV: 250 NOTE: * FOR ADULT BLACK MALES AND FEMALES, NORMAL WBC IS 2.9-7.7 K/ML * FOR ADULT BLACK MALES AND FEMALES, NORMAL RBC,HGB, AND HCT IS 5% LESS SOURCE FOR DATA: [employer] DYN 1800 OPERATION MANUAL( AUTOMATED BLOOD COUNTS AND DIFF.) APPENDIX B-3 CHRONIC KIDNEY DISEASE STAGING PER NKF: MALE GFR INTERPRETATION: 20-49 YRS: >60 mL/min Normal 50-59 YRS: >56 mL/min Normal 60-69 YRS: >49 mL/min Normal 70-79 YRS: >42 mL/min Normal 80 and above >35 mL/min Normal FEMALE GRF INTERPRETATION: 20-39 YRS: >60 mL/min Normal 40-49 YRS: >58 mL/min Normal 50-59 YRS: >51 mL/min Normal 60-69 YRS: >45 mL/min Normal 70-79 YRS: >39 mL/min Normal 80 and above >32 mL/min NormalCLASSIFICATION CHOLESTEROL FOR ADULTS CHILDREN/ADOLESCENTS* DESIRABLE: <200 MG/DL <170 MG/DL BORDER-LINE HIGH RISK: 200-239 MG/DL 170-199 MG/DL HIGH RISK: >240 MG/DL >200 MG/DL CLASS. FOR PRIMARY LDL CHOL PREVENTION: LDL CHOL-CHILD/ADOLESCENTS* DESIRABLE: <130 MG/DL <110 MG/DL BORDERLINE-HIGH RISK: 130-159 MG/DL 110-129 MG/DL HIGH RISK: >160 MG/DL >130 MG/DL *CHILDREN AND ADOLESCENTS REPRESENTS INDIVIDUALA AGED 2-19 YEARS EXCLUSIVE. Anion Gap 13 mmol/L [facility] NORMAL RANGES Age WBC RBC HGB HCT MCV PLT Adult M 4.1-10.9 4.20-6.30 12.0-18.0 37.0-51.0 80-97 140-440 Adult F 4.1-10.9 4.04-5.48 12.0-18.0 37.0-51.0 80-97 140-440 0 -1 Yr 5.0-20.0 3.9-5.9 15-18 MV: 44 MV: 91 MV: 277 2-9 Yr. 6.0-17.0 3.8-5.4 11-13 MV: 37 MV: 78 MV: 300 10 Yrs. 5.0-13.0 3.8-5.4 12-15 MV: 39 MV: 80 MV: 250 NOTE: * FOR ADULT BLACK MALES AND FEMALES, NORMAL WBC IS 2.9-7.7 K/ML * FOR ADULT BLACK MALES AND FEMALES, NORMAL RBC,HGB, AND HCT IS 5% LESS SOURCE FOR DATA: 23press 1800 OPERATION MANUAL( AUTOMATED BLOOD COUNTS AND DIFF.) APPENDIX B-3 CHRONIC KIDNEY DISEASE STAGING PER NKF: MALE GFR INTERPRETATION: 20-49 YRS: >60 mL/min Normal 50-59 YRS: >56 mL/min Normal 60-69 YRS: >49 mL/min Normal 70-79 YRS: >42 mL/min Normal 80 and above >35 mL/min Normal FEMALE GRF INTERPRETATION: 20-39 YRS: >60 mL/min Normal 40-49 YRS: >58 mL/min Normal 50-59 YRS: >51 mL/min Normal 60-69 YRS: >45 mL/min Normal 70-79 YRS: >39 mL/min Normal 80 and above >32 mL/min NormalCLASSIFICATION CHOLESTEROL FOR ADULTS CHILDREN/ADOLESCENTS* DESIRABLE: <200 MG/DL <170 MG/DL BORDER-LINE HIGH RISK: 200-239 MG/DL 170-199 MG/DL HIGH RISK: >240 MG/DL >200 MG/DL CLASS. FOR PRIMARY LDL CHOL PREVENTION: LDL CHOL-CHILD/ADOLESCENTS* DESIRABLE: <130 MG/DL <110 MG/DL BORDERLINE-HIGH RISK: 130-159 MG/DL 110-129 MG/DL HIGH RISK: >160 MG/DL >130 MG/DL *CHILDREN AND ADOLESCENTS REPRESENTS INDIVIDUALA AGED 2-19 YEARS EXCLUSIVE. eGFR 40 # MEDERIKA ( [facility] NORMAL RANGES Age WBC RBC HGB HCT MCV PLT Adult M 4.1-10.9 4.20-6.30 12.0-18.0 37.0-51.0 80-97 140-440 Adult F 4.1-10.9 4.04-5.48 12.0-18.0 37.0-51.0 80-97 140-440 0 -1 Yr 5.0-20.0 3.9-5.9 15-18 MV: 44 MV: 91 MV: 277 2-9 Yr. 6.0-17.0 3.8-5.4 11-13 MV: 37 MV: 78 MV: 300 10 Yrs. 5.0-13.0 3.8-5.4 12-15 MV: 39 MV: 80 MV: 250 NOTE: * FOR ADULT BLACK MALES AND FEMALES, NORMAL WBC IS 2.9-7.7 K/ML * FOR ADULT BLACK MALES AND FEMALES, NORMAL RBC,HGB, AND HCT IS 5% LESS SOURCE FOR DATA: 23press 1800 OPERATION MANUAL( AUTOMATED BLOOD COUNTS AND DIFF.) APPENDIX B-3 CHRONIC KIDNEY DISEASE STAGING PER NKF: MALE GFR INTERPRETATION: 20-49 YRS: >60 mL/min Normal 50-59 YRS: >56 mL/min Normal 60-69 YRS: >49 mL/min Normal 70-79 YRS: >42 mL/min Normal 80 and above >35 mL/min Normal FEMALE GRF INTERPRETATION: 20-39 YRS: >60 mL/min Normal 40-49 YRS: >58 mL/min Normal 50-59 YRS: >51 mL/min Normal 60-69 YRS: >45 mL/min Normal 70-79 YRS: >39 mL/min Normal 80 and above >32 mL/min NormalCLASSIFICATION CHOLESTEROL FOR ADULTS CHILDREN/ADOLESCENTS* DESIRABLE: <200 MG/DL <170 MG/DL BORDER-LINE HIGH RISK: 200-239 MG/DL 170-199 MG/DL HIGH RISK: >240 MG/DL >200 MG/DL CLASS. FOR PRIMARY LDL CHOL PREVENTION: LDL CHOL-CHILD/ADOLESCENTS* DESIRABLE: <130 MG/DL <110 MG/DL BORDERLINE-HIGH RISK: 130-159 MG/DL 110-129 MG/DL HIGH RISK: >160 MG/DL >130 MG/DL *CHILDREN AND ADOLESCENTS REPRESENTS INDIVIDUALA AGED 2-19 YEARS EXCLUSIVE. eGFR Non-Afr. [place]ian 35 # [facility] ([facility] NORMAL RANGES Age WBC RBC HGB HCT MCV PLT Adult M 4.1-10.9 4.20-6.30 12.0-18.0 37.0-51.0 80-97 140-440 Adult F 4.1-10.9 4.04-5.48 12.0-18.0 37.0-51.0 80-97 140-440 0 -1 Yr 5.0-20.0 3.9-5.9 15-18 MV: 44 MV: 91 MV: 277 2-9 Yr. 6.0-17.0 3.8-5.4 11-13 MV: 37 MV: 78 MV: 300 10 Yrs. 5.0-13.0 3.8-5.4 12-15 MV: 39 MV: 80 MV: 250 NOTE: * FOR ADULT BLACK MALES AND FEMALES, NORMAL WBC IS 2.9-7.7 K/ML * FOR ADULT BLACK MALES AND FEMALES, NORMAL RBC,HGB, AND HCT IS 5% LESS SOURCE FOR DATA: [employer] DYN 1800 OPERATION MANUAL( AUTOMATED BLOOD COUNTS AND DIFF.) APPENDIX B-3 CHRONIC KIDNEY DISEASE STAGING PER NKF: MALE GFR INTERPRETATION: 20-49 YRS: >60 mL/min Normal 50-59 YRS: >56 mL/min Normal 60-69 YRS: >49 mL/min Normal 70-79 YRS: >42 mL/min Normal 80 and above >35 mL/min Normal FEMALE GRF INTERPRETATION: 20-39 YRS: >60 mL/min Normal 40-49 YRS: >58 mL/min Normal 50-59 YRS: >51 mL/min Normal 60-69 YRS: >45 mL/min Normal 70-79 YRS: >39 mL/min Normal 80 and above >32 mL/min NormalCLASSIFICATION CHOLESTEROL FOR ADULTS CHILDREN/ADOLESCENTS* DESIRABLE: <200 MG/DL <170 MG/DL BORDER-LINE HIGH RISK: 200-239 MG/DL 170-199 MG/DL HIGH RISK: >240 MG/DL >200 MG/DL CLASS. FOR PRIMARY LDL CHOL PREVENTION: LDL CHOL-CHILD/ADOLESCENTS* DESIRABLE: <130 MG/DL <110 MG/DL BORDERLINE-HIGH RISK: 130-159 MG/DL 110-129 MG/DL HIGH RISK: >160 MG/DL >130 MG/DL *CHILDREN AND ADOLESCENTS REPRESENTS INDIVIDUALA AGED 2-19 YEARS EXCLUSIVE. ID Date Data Source [id number] 08/04/2020 09:00:00 AM EST [facility] ([facility] Name Value Range Interpretation Code Description Data Haylee rce(s) Supporting Document(s) WBC 10.8 10E3/uL 4.1-10.9 [facility] ([facility] NORMAL RANGES Age WBC RBC HGB HCT MCV PLT Adult M 4.1-10.9 4.20-6.30 12.0-18.0 37.0-51.0 80-97 140-440 Adult F 4.1-10.9 4.04-5.48 12.0-18.0 37.0-51.0 80-97 140-440 0 -1 Yr 5.0-20.0 3.9-5.9 15-18 MV: 44 MV: 91 MV: 277 2-9 Yr. 6.0-17.0 3.8-5.4 11-13 MV: 37 MV: 78 MV: 300 10 Yrs. 5.0-13.0 3.8-5.4 12-15 MV: 39 MV: 80 MV: 250 NOTE: * FOR ADULT BLACK MALES AND FEMALES, NORMAL WBC IS 2.9-7.7 K/ML * FOR ADULT BLACK MALES AND FEMALES, NORMAL RBC,HGB, AND HCT IS 5% LESS SOURCE FOR DATA: 23press 1800 OPERATION MANUAL( AUTOMATED BLOOD COUNTS AND DIFF.) APPENDIX B-3 CHRONIC KIDNEY DISEASE STAGING PER NKF: MALE GFR INTERPRETATION: 20-49 YRS: >60 mL/min Normal 50-59 YRS: >56 mL/min Normal 60-69 YRS: >49 mL/min Normal 70-79 YRS: >42 mL/min Normal 80 and above >35 mL/min Normal FEMALE GRF INTERPRETATION: 20-39 YRS: >60 mL/min Normal 40-49 YRS: >58 mL/min Normal 50-59 YRS: >51 mL/min Normal 60-69 YRS: >45 mL/min Normal 70-79 YRS: >39 mL/min Normal 80 and above >32 mL/min NormalCLASSIFICATION CHOLESTEROL FOR ADULTS CHILDREN/ADOLESCENTS* DESIRABLE: <200 MG/DL <170 MG/DL BORDER-LINE HIGH RISK: 200-239 MG/DL 170-199 MG/DL HIGH RISK: >240 MG/DL >200 MG/DL CLASS. FOR PRIMARY LDL CHOL PREVENTION: LDL CHOL-CHILD/ADOLESCENTS* DESIRABLE: <130 MG/DL <110 MG/DL BORDERLINE-HIGH RISK: 130-159 MG/DL 110-129 MG/DL HIGH RISK: >160 MG/DL >130 MG/DL *CHILDREN AND ADOLESCENTS REPRESENTS INDIVIDUALA AGED 2-19 YEARS EXCLUSIVE. RBC 3.42 10E6/uL 4.20-6.30 Below low normal [facility] ([facility] NORMAL RANGES Age WBC RBC HGB HCT MCV PLT Adult M 4.1-10.9 4.20-6.30 12.0-18.0 37.0-51.0 80-97 140-440 Adult F 4.1-10.9 4.04-5.48 12.0-18.0 37.0-51.0 80-97 140-440 0 -1 Yr 5.0-20.0 3.9-5.9 15-18 MV: 44 MV: 91 MV: 277 2-9 Yr. 6.0-17.0 3.8-5.4 11-13 MV: 37 MV: 78 MV: 300 10 Yrs. 5.0-13.0 3.8-5.4 12-15 MV: 39 MV: 80 MV: 250 NOTE: * FOR ADULT BLACK MALES AND FEMALES, NORMAL WBC IS 2.9-7.7 K/ML * FOR ADULT BLACK MALES AND FEMALES, NORMAL RBC,HGB, AND HCT IS 5% LESS SOURCE FOR DATA: [employer] DYN 1800 OPERATION MANUAL( AUTOMATED BLOOD COUNTS AND DIFF.) APPENDIX B-3 CHRONIC KIDNEY DISEASE STAGING PER NKF: MALE GFR INTERPRETATION: 20-49 YRS: >60 mL/min Normal 50-59 YRS: >56 mL/min Normal 60-69 YRS: >49 mL/min Normal 70-79 YRS: >42 mL/min Normal 80 and above >35 mL/min Normal FEMALE GRF INTERPRETATION: 20-39 YRS: >60 mL/min Normal 40-49 YRS: >58 mL/min Normal 50-59 YRS: >51 mL/min Normal 60-69 YRS: >45 mL/min Normal 70-79 YRS: >39 mL/min Normal 80 and above >32 mL/min NormalCLASSIFICATION CHOLESTEROL FOR ADULTS CHILDREN/ADOLESCENTS* DESIRABLE: <200 MG/DL <170 MG/DL BORDER-LINE HIGH RISK: 200-239 MG/DL 170-199 MG/DL HIGH RISK: >240 MG/DL >200 MG/DL CLASS. FOR PRIMARY LDL CHOL PREVENTION: LDL CHOL-CHILD/ADOLESCENTS* DESIRABLE: <130 MG/DL <110 MG/DL BORDERLINE-HIGH RISK: 130-159 MG/DL 110-129 MG/DL HIGH RISK: >160 MG/DL >130 MG/DL *CHILDREN AND ADOLESCENTS REPRESENTS INDIVIDUALA AGED 2-19 YEARS EXCLUSIVE. HGB 10.9 g/dL 12.0-18.0 Below low normal [facility] ( [facility] NORMAL RANGES Age WBC RBC HGB HCT MCV PLT Adult M 4.1-10.9 4.20-6.30 12.0-18.0 37.0-51.0 80-97 140-440 Adult F 4.1-10.9 4.04-5.48 12.0-18.0 37.0-51.0 80-97 140-440 0 -1 Yr 5.0-20.0 3.9-5.9 15-18 MV: 44 MV: 91 MV: 277 2-9 Yr. 6.0-17.0 3.8-5.4 11-13 MV: 37 MV: 78 MV: 300 10 Yrs. 5.0-13.0 3.8-5.4 12-15 MV: 39 MV: 80 MV: 250 NOTE: * FOR ADULT BLACK MALES AND FEMALES, NORMAL WBC IS 2.9-7.7 K/ML * FOR ADULT BLACK MALES AND FEMALES, NORMAL RBC,HGB, AND HCT IS 5% LESS SOURCE FOR DATA: [employer]press 1800 OPERATION MANUAL( AUTOMATED BLOOD COUNTS AND DIFF.) APPENDIX B-3 CHRONIC KIDNEY DISEASE STAGING PER NKF: MALE GFR INTERPRETATION: 20-49 YRS: >60 mL/min Normal 50-59 YRS: >56 mL/min Normal 60-69 YRS: >49 mL/min Normal 70-79 YRS: >42 mL/min Normal 80 and above >35 mL/min Normal FEMALE GRF INTERPRETATION: 20-39 YRS: >60 mL/min Normal 40-49 YRS: >58 mL/min Normal 50-59 YRS: >51 mL/min Normal 60-69 YRS: >45 mL/min Normal 70-79 YRS: >39 mL/min Normal 80 and above >32 mL/min NormalCLASSIFICATION CHOLESTEROL FOR ADULTS CHILDREN/ADOLESCENTS* DESIRABLE: <200 MG/DL <170 MG/DL BORDER-LINE HIGH RISK: 200-239 MG/DL 170-199 MG/DL HIGH RISK: >240 MG/DL >200 MG/DL CLASS. FOR PRIMARY LDL CHOL PREVENTION: LDL CHOL-CHILD/ADOLESCENTS* DESIRABLE: <130 MG/DL <110 MG/DL BORDERLINE-HIGH RISK: 130-159 MG/DL 110-129 MG/DL HIGH RISK: >160 MG/DL >130 MG/DL *CHILDREN AND ADOLESCENTS REPRESENTS INDIVIDUALA AGED 2-19 YEARS EXCLUSIVE. MCV 100.3 fL 80.0-97.0 Above high normal [facility] ([facility] NORMAL RANGES Age WBC RBC HGB HCT MCV PLT Adult M 4.1-10.9 4.20-6.30 12.0-18.0 37.0-51.0 80-97 140-440 Adult F 4.1-10.9 4.04-5.48 12.0-18.0 37.0-51.0 80-97 140-440 0 -1 Yr 5.0-20.0 3.9-5.9 15-18 MV: 44 MV: 91 MV: 277 2-9 Yr. 6.0-17.0 3.8-5.4 11-13 MV: 37 MV: 78 MV: 300 10 Yrs. 5.0-13.0 3.8-5.4 12-15 MV: 39 MV: 80 MV: 250 NOTE: * FOR ADULT BLACK MALES AND FEMALES, NORMAL WBC IS 2.9-7.7 K/ML * FOR ADULT BLACK MALES AND FEMALES, NORMAL RBC,HGB, AND HCT IS 5% LESS SOURCE FOR DATA: [employer]press 1800 OPERATION MANUAL( AUTOMATED BLOOD COUNTS AND DIFF.) APPENDIX B-3 CHRONIC KIDNEY DISEASE STAGING PER NKF: MALE GFR INTERPRETATION: 20-49 YRS: >60 mL/min Normal 50-59 YRS: >56 mL/min Normal 60-69 YRS: >49 mL/min Normal 70-79 YRS: >42 mL/min Normal 80 and above >35 mL/min Normal FEMALE GRF INTERPRETATION: 20-39 YRS: >60 mL/min Normal 40-49 YRS: >58 mL/min Normal 50-59 YRS: >51 mL/min Normal 60-69 YRS: >45 mL/min Normal 70-79 YRS: >39 mL/min Normal 80 and above >32 mL/min NormalCLASSIFICATION CHOLESTEROL FOR ADULTS CHILDREN/ADOLESCENTS* DESIRABLE: <200 MG/DL <170 MG/DL BORDER-LINE HIGH RISK: 200-239 MG/DL 170-199 MG/DL HIGH RISK: >240 MG/DL >200 MG/DL CLASS. FOR PRIMARY LDL CHOL PREVENTION: LDL CHOL-CHILD/ADOLESCENTS* DESIRABLE: <130 MG/DL <110 MG/DL BORDERLINE-HIGH RISK: 130-159 MG/DL 110-129 MG/DL HIGH RISK: >160 MG/DL >130 MG/DL *CHILDREN AND ADOLESCENTS REPRESENTS INDIVIDUALA AGED 2-19 YEARS EXCLUSIVE. HCT 34.3 % 37.0-51.0 Below low normal [facility] ( [facility] NORMAL RANGES Age WBC RBC HGB HCT MCV PLT Adult M 4.1-10.9 4.20-6.30 12.0-18.0 37.0-51.0 80-97 140-440 Adult F 4.1-10.9 4.04-5.48 12.0-18.0 37.0-51.0 80-97 140-440 0 -1 Yr 5.0-20.0 3.9-5.9 15-18 MV: 44 MV: 91 MV: 277 2-9 Yr. 6.0-17.0 3.8-5.4 11-13 MV: 37 MV: 78 MV: 300 10 Yrs. 5.0-13.0 3.8-5.4 12-15 MV: 39 MV: 80 MV: 250 NOTE: * FOR ADULT BLACK MALES AND FEMALES, NORMAL WBC IS 2.9-7.7 K/ML * FOR ADULT BLACK MALES AND FEMALES, NORMAL RBC,HGB, AND HCT IS 5% LESS SOURCE FOR DATA: 23press 1800 OPERATION MANUAL( AUTOMATED BLOOD COUNTS AND DIFF.) APPENDIX B-3 CHRONIC KIDNEY DISEASE STAGING PER NKF: MALE GFR INTERPRETATION: 20-49 YRS: >60 mL/min Normal 50-59 YRS: >56 mL/min Normal 60-69 YRS: >49 mL/min Normal 70-79 YRS: >42 mL/min Normal 80 and above >35 mL/min Normal FEMALE GRF INTERPRETATION: 20-39 YRS: >60 mL/min Normal 40-49 YRS: >58 mL/min Normal 50-59 YRS: >51 mL/min Normal 60-69 YRS: >45 mL/min Normal 70-79 YRS: >39 mL/min Normal 80 and above >32 mL/min NormalCLASSIFICATION CHOLESTEROL FOR ADULTS CHILDREN/ADOLESCENTS* DESIRABLE: <200 MG/DL <170 MG/DL BORDER-LINE HIGH RISK: 200-239 MG/DL 170-199 MG/DL HIGH RISK: >240 MG/DL >200 MG/DL CLASS. FOR PRIMARY LDL CHOL PREVENTION: LDL CHOL-CHILD/ADOLESCENTS* DESIRABLE: <130 MG/DL <110 MG/DL BORDERLINE-HIGH RISK: 130-159 MG/DL 110-129 MG/DL HIGH RISK: >160 MG/DL >130 MG/DL *CHILDREN AND ADOLESCENTS REPRESENTS INDIVIDUALA AGED 2-19 YEARS EXCLUSIVE. MCH 31.9 pg 26.0-32.0 [facility] ([facility] NORMAL RANGES Age WBC RBC HGB HCT MCV PLT Adult M 4.1-10.9 4.20-6.30 12.0-18.0 37.0-51.0 80-97 140-440 Adult F 4.1-10.9 4.04-5.48 12.0-18.0 37.0-51.0 80-97 140-440 0 -1 Yr 5.0-20.0 3.9-5.9 15-18 MV: 44 MV: 91 MV: 277 2-9 Yr. 6.0-17.0 3.8-5.4 11-13 MV: 37 MV: 78 MV: 300 10 Yrs. 5.0-13.0 3.8-5.4 12-15 MV: 39 MV: 80 MV: 250 NOTE: * FOR ADULT BLACK MALES AND FEMALES, NORMAL WBC IS 2.9-7.7 K/ML * FOR ADULT BLACK MALES AND FEMALES, NORMAL RBC,HGB, AND HCT IS 5% LESS SOURCE FOR DATA: 23press 1800 OPERATION MANUAL( AUTOMATED BLOOD COUNTS AND DIFF.) APPENDIX B-3 CHRONIC KIDNEY DISEASE STAGING PER NKF: MALE GFR INTERPRETATION: 20-49 YRS: >60 mL/min Normal 50-59 YRS: >56 mL/min Normal 60-69 YRS: >49 mL/min Normal 70-79 YRS: >42 mL/min Normal 80 and above >35 mL/min Normal FEMALE GRF INTERPRETATION: 20-39 YRS: >60 mL/min Normal 40-49 YRS: >58 mL/min Normal 50-59 YRS: >51 mL/min Normal 60-69 YRS: >45 mL/min Normal 70-79 YRS: >39 mL/min Normal 80 and above >32 mL/min NormalCLASSIFICATION CHOLESTEROL FOR ADULTS CHILDREN/ADOLESCENTS* DESIRABLE: <200 MG/DL <170 MG/DL BORDER-LINE HIGH RISK: 200-239 MG/DL 170-199 MG/DL HIGH RISK: >240 MG/DL >200 MG/DL CLASS. FOR PRIMARY LDL CHOL PREVENTION: LDL CHOL-CHILD/ADOLESCENTS* DESIRABLE: <130 MG/DL <110 MG/DL BORDERLINE-HIGH RISK: 130-159 MG/DL 110-129 MG/DL HIGH RISK: >160 MG/DL >130 MG/DL *CHILDREN AND ADOLESCENTS REPRESENTS INDIVIDUALA AGED 2-19 YEARS EXCLUSIVE. [facility] 31.8 g/dL 31.0-36.0 [facility] NORMAL RANGES Age WBC RBC HGB HCT MCV PLT Adult M 4.1-10.9 4.20-6.30 12.0-18.0 37.0-51.0 80-97 140-440 Adult F 4.1-10.9 4.04-5.48 12.0-18.0 37.0-51.0 80-97 140-440 0 -1 Yr 5.0-20.0 3.9-5.9 15-18 MV: 44 MV: 91 MV: 277 2-9 Yr. 6.0-17.0 3.8-5.4 11-13 MV: 37 MV: 78 MV: 300 10 Yrs. 5.0-13.0 3.8-5.4 12-15 MV: 39 MV: 80 MV: 250 NOTE: * FOR ADULT BLACK MALES AND FEMALES, NORMAL WBC IS 2.9-7.7 K/ML * FOR ADULT BLACK MALES AND FEMALES, NORMAL RBC,HGB, AND HCT IS 5% LESS SOURCE FOR DATA: 23press 1800 OPERATION MANUAL( AUTOMATED BLOOD COUNTS AND DIFF.) APPENDIX B-3 CHRONIC KIDNEY DISEASE STAGING PER NKF: MALE GFR INTERPRETATION: 20-49 YRS: >60 mL/min Normal 50-59 YRS: >56 mL/min Normal 60-69 YRS: >49 mL/min Normal 70-79 YRS: >42 mL/min Normal 80 and above >35 mL/min Normal FEMALE GRF INTERPRETATION: 20-39 YRS: >60 mL/min Normal 40-49 YRS: >58 mL/min Normal 50-59 YRS: >51 mL/min Normal 60-69 YRS: >45 mL/min Normal 70-79 YRS: >39 mL/min Normal 80 and above >32 mL/min NormalCLASSIFICATION CHOLESTEROL FOR ADULTS CHILDREN/ADOLESCENTS* DESIRABLE: <200 MG/DL <170 MG/DL BORDER-LINE HIGH RISK: 200-239 MG/DL 170-199 MG/DL HIGH RISK: >240 MG/DL >200 MG/DL CLASS. FOR PRIMARY LDL CHOL PREVENTION: LDL CHOL-CHILD/ADOLESCENTS* DESIRABLE: <130 MG/DL <110 MG/DL BORDERLINE-HIGH RISK: 130-159 MG/DL 110-129 MG/DL HIGH RISK: >160 MG/DL >130 MG/DL *CHILDREN AND ADOLESCENTS REPRESENTS INDIVIDUALA AGED 2-19 YEARS EXCLUSIVE. RDW-CV 17.0 % 11.5-14.5 Above high normal [facility] ([facility] NORMAL RANGES Age WBC RBC HGB HCT MCV PLT Adult M 4.1-10.9 4.20-6.30 12.0-18.0 37.0-51.0 80-97 140-440 Adult F 4.1-10.9 4.04-5.48 12.0-18.0 37.0-51.0 80-97 140-440 0 -1 Yr 5.0-20.0 3.9-5.9 15-18 MV: 44 MV: 91 MV: 277 2-9 Yr. 6.0-17.0 3.8-5.4 11-13 MV: 37 MV: 78 MV: 300 10 Yrs. 5.0-13.0 3.8-5.4 12-15 MV: 39 MV: 80 MV: 250 NOTE: * FOR ADULT BLACK MALES AND FEMALES, NORMAL WBC IS 2.9-7.7 K/ML * FOR ADULT BLACK MALES AND FEMALES, NORMAL RBC,HGB, AND HCT IS 5% LESS SOURCE FOR DATA: 23press 1800 OPERATION MANUAL( AUTOMATED BLOOD COUNTS AND DIFF.) APPENDIX B-3 CHRONIC KIDNEY DISEASE STAGING PER NKF: MALE GFR INTERPRETATION: 20-49 YRS: >60 mL/min Normal 50-59 YRS: >56 mL/min Normal 60-69 YRS: >49 mL/min Normal 70-79 YRS: >42 mL/min Normal 80 and above >35 mL/min Normal FEMALE GRF INTERPRETATION: 20-39 YRS: >60 mL/min Normal 40-49 YRS: >58 mL/min Normal 50-59 YRS: >51 mL/min Normal 60-69 YRS: >45 mL/min Normal 70-79 YRS: >39 mL/min Normal 80 and above >32 mL/min NormalCLASSIFICATION CHOLESTEROL FOR ADULTS CHILDREN/ADOLESCENTS* DESIRABLE: <200 MG/DL <170 MG/DL BORDER-LINE HIGH RISK: 200-239 MG/DL 170-199 MG/DL HIGH RISK: >240 MG/DL >200 MG/DL CLASS. FOR PRIMARY LDL CHOL PREVENTION: LDL CHOL-CHILD/ADOLESCENTS* DESIRABLE: <130 MG/DL <110 MG/DL BORDERLINE-HIGH RISK: 130-159 MG/DL 110-129 MG/DL HIGH RISK: >160 MG/DL >130 MG/DL *CHILDREN AND ADOLESCENTS REPRESENTS INDIVIDUALA AGED 2-19 YEARS EXCLUSIVE. PLT 324 10E3/uL 140-440 [facility] ([facility] NORMAL RANGES Age WBC RBC HGB HCT MCV PLT Adult M 4.1-10.9 4.20-6.30 12.0-18.0 37.0-51.0 80-97 140-440 Adult F 4.1-10.9 4.04-5.48 12.0-18.0 37.0-51.0 80-97 140-440 0 -1 Yr 5.0-20.0 3.9-5.9 15-18 MV: 44 MV: 91 MV: 277 2-9 Yr. 6.0-17.0 3.8-5.4 11-13 MV: 37 MV: 78 MV: 300 10 Yrs. 5.0-13.0 3.8-5.4 12-15 MV: 39 MV: 80 MV: 250 NOTE: * FOR ADULT BLACK MALES AND FEMALES, NORMAL WBC IS 2.9-7.7 K/ML * FOR ADULT BLACK MALES AND FEMALES, NORMAL RBC,HGB, AND HCT IS 5% LESS SOURCE FOR DATA: 23press 1800 OPERATION MANUAL( AUTOMATED BLOOD COUNTS AND DIFF.) APPENDIX B-3 CHRONIC KIDNEY DISEASE STAGING PER NKF: MALE GFR INTERPRETATION: 20-49 YRS: >60 mL/min Normal 50-59 YRS: >56 mL/min Normal 60-69 YRS: >49 mL/min Normal 70-79 YRS: >42 mL/min Normal 80 and above >35 mL/min Normal FEMALE GRF INTERPRETATION: 20-39 YRS: >60 mL/min Normal 40-49 YRS: >58 mL/min Normal 50-59 YRS: >51 mL/min Normal 60-69 YRS: >45 mL/min Normal 70-79 YRS: >39 mL/min Normal 80 and above >32 mL/min NormalCLASSIFICATION CHOLESTEROL FOR ADULTS CHILDREN/ADOLESCENTS* DESIRABLE: <200 MG/DL <170 MG/DL BORDER-LINE HIGH RISK: 200-239 MG/DL 170-199 MG/DL HIGH RISK: >240 MG/DL >200 MG/DL CLASS. FOR PRIMARY LDL CHOL PREVENTION: LDL CHOL-CHILD/ADOLESCENTS* DESIRABLE: <130 MG/DL <110 MG/DL BORDERLINE-HIGH RISK: 130-159 MG/DL 110-129 MG/DL HIGH RISK: >160 MG/DL >130 MG/DL *CHILDREN AND ADOLESCENTS REPRESENTS INDIVIDUALA AGED 2-19 YEARS EXCLUSIVE. Lym% 24.4 % 10.0-58.5 [facility] ([facility] NORMAL RANGES Age WBC RBC HGB HCT MCV PLT Adult M 4.1-10.9 4.20-6.30 12.0-18.0 37.0-51.0 80-97 140-440 Adult F 4.1-10.9 4.04-5.48 12.0-18.0 37.0-51.0 80-97 140-440 0 -1 Yr 5.0-20.0 3.9-5.9 15-18 MV: 44 MV: 91 MV: 277 2-9 Yr. 6.0-17.0 3.8-5.4 11-13 MV: 37 MV: 78 MV: 300 10 Yrs. 5.0-13.0 3.8-5.4 12-15 MV: 39 MV: 80 MV: 250 NOTE: * FOR ADULT BLACK MALES AND FEMALES, NORMAL WBC IS 2.9-7.7 K/ML * FOR ADULT BLACK MALES AND FEMALES, NORMAL RBC,HGB, AND HCT IS 5% LESS SOURCE FOR DATA: 23press 1800 OPERATION MANUAL( AUTOMATED BLOOD COUNTS AND DIFF.) APPENDIX B-3 CHRONIC KIDNEY DISEASE STAGING PER NKF: MALE GFR INTERPRETATION: 20-49 YRS: >60 mL/min Normal 50-59 YRS: >56 mL/min Normal 60-69 YRS: >49 mL/min Normal 70-79 YRS: >42 mL/min Normal 80 and above >35 mL/min Normal FEMALE GRF INTERPRETATION: 20-39 YRS: >60 mL/min Normal 40-49 YRS: >58 mL/min Normal 50-59 YRS: >51 mL/min Normal 60-69 YRS: >45 mL/min Normal 70-79 YRS: >39 mL/min Normal 80 and above >32 mL/min NormalCLASSIFICATION CHOLESTEROL FOR ADULTS CHILDREN/ADOLESCENTS* DESIRABLE: <200 MG/DL <170 MG/DL BORDER-LINE HIGH RISK: 200-239 MG/DL 170-199 MG/DL HIGH RISK: >240 MG/DL >200 MG/DL CLASS. FOR PRIMARY LDL CHOL PREVENTION: LDL CHOL-CHILD/ADOLESCENTS* DESIRABLE: <130 MG/DL <110 MG/DL BORDERLINE-HIGH RISK: 130-159 MG/DL 110-129 MG/DL HIGH RISK: >160 MG/DL >130 MG/DL *CHILDREN AND ADOLESCENTS REPRESENTS INDIVIDUALA AGED 2-19 YEARS EXCLUSIVE. Neut% 66.6 % 37.0-92.0 [facility] ([facility] NORMAL RANGES Age WBC RBC HGB HCT MCV PLT Adult M 4.1-10.9 4.20-6.30 12.0-18.0 37.0-51.0 80-97 140-440 Adult F 4.1-10.9 4.04-5.48 12.0-18.0 37.0-51.0 80-97 140-440 0 -1 Yr 5.0-20.0 3.9-5.9 15-18 MV: 44 MV: 91 MV: 277 2-9 Yr. 6.0-17.0 3.8-5.4 11-13 MV: 37 MV: 78 MV: 300 10 Yrs. 5.0-13.0 3.8-5.4 12-15 MV: 39 MV: 80 MV: 250 NOTE: * FOR ADULT BLACK MALES AND FEMALES, NORMAL WBC IS 2.9-7.7 K/ML * FOR ADULT BLACK MALES AND FEMALES, NORMAL RBC,HGB, AND HCT IS 5% LESS SOURCE FOR DATA: [employer] DYN 1800 OPERATION MANUAL( AUTOMATED BLOOD COUNTS AND DIFF.) APPENDIX B-3 CHRONIC KIDNEY DISEASE STAGING PER NKF: MALE GFR INTERPRETATION: 20-49 YRS: >60 mL/min Normal 50-59 YRS: >56 mL/min Normal 60-69 YRS: >49 mL/min Normal 70-79 YRS: >42 mL/min Normal 80 and above >35 mL/min Normal FEMALE GRF INTERPRETATION: 20-39 YRS: >60 mL/min Normal 40-49 YRS: >58 mL/min Normal 50-59 YRS: >51 mL/min Normal 60-69 YRS: >45 mL/min Normal 70-79 YRS: >39 mL/min Normal 80 and above >32 mL/min NormalCLASSIFICATION CHOLESTEROL FOR ADULTS CHILDREN/ADOLESCENTS* DESIRABLE: <200 MG/DL <170 MG/DL BORDER-LINE HIGH RISK: 200-239 MG/DL 170-199 MG/DL HIGH RISK: >240 MG/DL >200 MG/DL CLASS. FOR PRIMARY LDL CHOL PREVENTION: LDL CHOL-CHILD/ADOLESCENTS* DESIRABLE: <130 MG/DL <110 MG/DL BORDERLINE-HIGH RISK: 130-159 MG/DL 110-129 MG/DL HIGH RISK: >160 MG/DL >130 MG/DL *CHILDREN AND ADOLESCENTS REPRESENTS INDIVIDUALA AGED 2-19 YEARS EXCLUSIVE. MXD% 9.0 % 0.1-24.0 [facility] ([facility] NORMAL RANGES Age WBC RBC HGB HCT MCV PLT Adult M 4.1-10.9 4.20-6.30 12.0-18.0 37.0-51.0 80-97 140-440 Adult F 4.1-10.9 4.04-5.48 12.0-18.0 37.0-51.0 80-97 140-440 0 -1 Yr 5.0-20.0 3.9-5.9 15-18 MV: 44 MV: 91 MV: 277 2-9 Yr. 6.0-17.0 3.8-5.4 11-13 MV: 37 MV: 78 MV: 300 10 Yrs. 5.0-13.0 3.8-5.4 12-15 MV: 39 MV: 80 MV: 250 NOTE: * FOR ADULT BLACK MALES AND FEMALES, NORMAL WBC IS 2.9-7.7 K/ML * FOR ADULT BLACK MALES AND FEMALES, NORMAL RBC,HGB, AND HCT IS 5% LESS SOURCE FOR DATA: 23press 1800 OPERATION MANUAL( AUTOMATED BLOOD COUNTS AND DIFF.) APPENDIX B-3 CHRONIC KIDNEY DISEASE STAGING PER NKF: MALE GFR INTERPRETATION: 20-49 YRS: >60 mL/min Normal 50-59 YRS: >56 mL/min Normal 60-69 YRS: >49 mL/min Normal 70-79 YRS: >42 mL/min Normal 80 and above >35 mL/min Normal FEMALE GRF INTERPRETATION: 20-39 YRS: >60 mL/min Normal 40-49 YRS: >58 mL/min Normal 50-59 YRS: >51 mL/min Normal 60-69 YRS: >45 mL/min Normal 70-79 YRS: >39 mL/min Normal 80 and above >32 mL/min NormalCLASSIFICATION CHOLESTEROL FOR ADULTS CHILDREN/ADOLESCENTS* DESIRABLE: <200 MG/DL <170 MG/DL BORDER-LINE HIGH RISK: 200-239 MG/DL 170-199 MG/DL HIGH RISK: >240 MG/DL >200 MG/DL CLASS. FOR PRIMARY LDL CHOL PREVENTION: LDL CHOL-CHILD/ADOLESCENTS* DESIRABLE: <130 MG/DL <110 MG/DL BORDERLINE-HIGH RISK: 130-159 MG/DL 110-129 MG/DL HIGH RISK: >160 MG/DL >130 MG/DL *CHILDREN AND ADOLESCENTS REPRESENTS INDIVIDUALA AGED 2-19 YEARS EXCLUSIVE. Lym# 2.6 10E3/uL 0.6-4.1 [facility] NORMAL RANGES Age WBC RBC HGB HCT MCV PLT Adult M 4.1-10.9 4.20-6.30 12.0-18.0 37.0-51.0 80-97 140-440 Adult F 4.1-10.9 4.04-5.48 12.0-18.0 37.0-51.0 80-97 140-440 0 -1 Yr 5.0-20.0 3.9-5.9 15-18 MV: 44 MV: 91 MV: 277 2-9 Yr. 6.0-17.0 3.8-5.4 11-13 MV: 37 MV: 78 MV: 300 10 Yrs. 5.0-13.0 3.8-5.4 12-15 MV: 39 MV: 80 MV: 250 NOTE: * FOR ADULT BLACK MALES AND FEMALES, NORMAL WBC IS 2.9-7.7 K/ML * FOR ADULT BLACK MALES AND FEMALES, NORMAL RBC,HGB, AND HCT IS 5% LESS SOURCE FOR DATA: 23press 1800 OPERATION MANUAL( AUTOMATED BLOOD COUNTS AND DIFF.) APPENDIX B-3 CHRONIC KIDNEY DISEASE STAGING PER NKF: MALE GFR INTERPRETATION: 20-49 YRS: >60 mL/min Normal 50-59 YRS: >56 mL/min Normal 60-69 YRS: >49 mL/min Normal 70-79 YRS: >42 mL/min Normal 80 and above >35 mL/min Normal FEMALE GRF INTERPRETATION: 20-39 YRS: >60 mL/min Normal 40-49 YRS: >58 mL/min Normal 50-59 YRS: >51 mL/min Normal 60-69 YRS: >45 mL/min Normal 70-79 YRS: >39 mL/min Normal 80 and above >32 mL/min NormalCLASSIFICATION CHOLESTEROL FOR ADULTS CHILDREN/ADOLESCENTS* DESIRABLE: <200 MG/DL <170 MG/DL BORDER-LINE HIGH RISK: 200-239 MG/DL 170-199 MG/DL HIGH RISK: >240 MG/DL >200 MG/DL CLASS. FOR PRIMARY LDL CHOL PREVENTION: LDL CHOL-CHILD/ADOLESCENTS* DESIRABLE: <130 MG/DL <110 MG/DL BORDERLINE-HIGH RISK: 130-159 MG/DL 110-129 MG/DL HIGH RISK: >160 MG/DL >130 MG/DL *CHILDREN AND ADOLESCENTS REPRESENTS INDIVIDUALA AGED 2-19 YEARS EXCLUSIVE. Neut# 7.2 % 2.0-7.8 [facility] ([facility] NORMAL RANGES Age WBC RBC HGB HCT MCV PLT Adult M 4.1-10.9 4.20-6.30 12.0-18.0 37.0-51.0 80-97 140-440 Adult F 4.1-10.9 4.04-5.48 12.0-18.0 37.0-51.0 80-97 140-440 0 -1 Yr 5.0-20.0 3.9-5.9 15-18 MV: 44 MV: 91 MV: 277 2-9 Yr. 6.0-17.0 3.8-5.4 11-13 MV: 37 MV: 78 MV: 300 10 Yrs. 5.0-13.0 3.8-5.4 12-15 MV: 39 MV: 80 MV: 250 NOTE: * FOR ADULT BLACK MALES AND FEMALES, NORMAL WBC IS 2.9-7.7 K/ML * FOR ADULT BLACK MALES AND FEMALES, NORMAL RBC,HGB, AND HCT IS 5% LESS SOURCE FOR DATA: 23press 1800 OPERATION MANUAL( AUTOMATED BLOOD COUNTS AND DIFF.) APPENDIX B-3 CHRONIC KIDNEY DISEASE STAGING PER NKF: MALE GFR INTERPRETATION: 20-49 YRS: >60 mL/min Normal 50-59 YRS: >56 mL/min Normal 60-69 YRS: >49 mL/min Normal 70-79 YRS: >42 mL/min Normal 80 and above >35 mL/min Normal FEMALE GRF INTERPRETATION: 20-39 YRS: >60 mL/min Normal 40-49 YRS: >58 mL/min Normal 50-59 YRS: >51 mL/min Normal 60-69 YRS: >45 mL/min Normal 70-79 YRS: >39 mL/min Normal 80 and above >32 mL/min NormalCLASSIFICATION CHOLESTEROL FOR ADULTS CHILDREN/ADOLESCENTS* DESIRABLE: <200 MG/DL <170 MG/DL BORDER-LINE HIGH RISK: 200-239 MG/DL 170-199 MG/DL HIGH RISK: >240 MG/DL >200 MG/DL CLASS. FOR PRIMARY LDL CHOL PREVENTION: LDL CHOL-CHILD/ADOLESCENTS* DESIRABLE: <130 MG/DL <110 MG/DL BORDERLINE-HIGH RISK: 130-159 MG/DL 110-129 MG/DL HIGH RISK: >160 MG/DL >130 MG/DL *CHILDREN AND ADOLESCENTS REPRESENTS INDIVIDUALA AGED 2-19 YEARS EXCLUSIVE. MXD# 1.0 10E3/uL 0.0-1.8 [facility] ([facility] NORMAL RANGES Age WBC RBC HGB HCT MCV PLT Adult M 4.1-10.9 4.20-6.30 12.0-18.0 37.0-51.0 80-97 140-440 Adult F 4.1-10.9 4.04-5.48 12.0-18.0 37.0-51.0 80-97 140-440 0 -1 Yr 5.0-20.0 3.9-5.9 15-18 MV: 44 MV: 91 MV: 277 2-9 Yr. 6.0-17.0 3.8-5.4 11-13 MV: 37 MV: 78 MV: 300 10 Yrs. 5.0-13.0 3.8-5.4 12-15 MV: 39 MV: 80 MV: 250 NOTE: * FOR ADULT BLACK MALES AND FEMALES, NORMAL WBC IS 2.9-7.7 K/ML * FOR ADULT BLACK MALES AND FEMALES, NORMAL RBC,HGB, AND HCT IS 5% LESS SOURCE FOR DATA: 23press 1800 OPERATION MANUAL( AUTOMATED BLOOD COUNTS AND DIFF.) APPENDIX B-3 CHRONIC KIDNEY DISEASE STAGING PER NKF: MALE GFR INTERPRETATION: 20-49 YRS: >60 mL/min Normal 50-59 YRS: >56 mL/min Normal 60-69 YRS: >49 mL/min Normal 70-79 YRS: >42 mL/min Normal 80 and above >35 mL/min Normal FEMALE GRF INTERPRETATION: 20-39 YRS: >60 mL/min Normal 40-49 YRS: >58 mL/min Normal 50-59 YRS: >51 mL/min Normal 60-69 YRS: >45 mL/min Normal 70-79 YRS: >39 mL/min Normal 80 and above >32 mL/min NormalCLASSIFICATION CHOLESTEROL FOR ADULTS CHILDREN/ADOLESCENTS* DESIRABLE: <200 MG/DL <170 MG/DL BORDER-LINE HIGH RISK: 200-239 MG/DL 170-199 MG/DL HIGH RISK: >240 MG/DL >200 MG/DL CLASS. FOR PRIMARY LDL CHOL PREVENTION: LDL CHOL-CHILD/ADOLESCENTS* DESIRABLE: <130 MG/DL <110 MG/DL BORDERLINE-HIGH RISK: 130-159 MG/DL 110-129 MG/DL HIGH RISK: >160 MG/DL >130 MG/DL *CHILDREN AND ADOLESCENTS REPRESENTS INDIVIDUALA AGED 2-19 YEARS EXCLUSIVE. MPV 11.5 fL 9.0-13.0 [facility] ([facility] NORMAL RANGES Age WBC RBC HGB HCT MCV PLT Adult M 4.1-10.9 4.20-6.30 12.0-18.0 37.0-51.0 80-97 140-440 Adult F 4.1-10.9 4.04-5.48 12.0-18.0 37.0-51.0 80-97 140-440 0 -1 Yr 5.0-20.0 3.9-5.9 15-18 MV: 44 MV: 91 MV: 277 2-9 Yr. 6.0-17.0 3.8-5.4 11-13 MV: 37 MV: 78 MV: 300 10 Yrs. 5.0-13.0 3.8-5.4 12-15 MV: 39 MV: 80 MV: 250 NOTE: * FOR ADULT BLACK MALES AND FEMALES, NORMAL WBC IS 2.9-7.7 K/ML * FOR ADULT BLACK MALES AND FEMALES, NORMAL RBC,HGB, AND HCT IS 5% LESS SOURCE FOR DATA: GAGAN DYN 1800 OPERATION MANUAL( AUTOMATED BLOOD COUNTS AND DIFF.) APPENDIX B-3 CHRONIC KIDNEY DISEASE STAGING PER NKF: MALE GFR INTERPRETATION: 20-49 YRS: >60 mL/min Normal 50-59 YRS: >56 mL/min Normal 60-69 YRS: >49 mL/min Normal 70-79 YRS: >42 mL/min Normal 80 and above >35 mL/min Normal FEMALE GRF INTERPRETATION: 20-39 YRS: >60 mL/min Normal 40-49 YRS: >58 mL/min Normal 50-59 YRS: >51 mL/min Normal 60-69 YRS: >45 mL/min Normal 70-79 YRS: >39 mL/min Normal 80 and above >32 mL/min NormalCLASSIFICATION CHOLESTEROL FOR ADULTS CHILDREN/ADOLESCENTS* DESIRABLE: <200 MG/DL <170 MG/DL BORDER-LINE HIGH RISK: 200-239 MG/DL 170-199 MG/DL HIGH RISK: >240 MG/DL >200 MG/DL CLASS. FOR PRIMARY LDL CHOL PREVENTION: LDL CHOL-CHILD/ADOLESCENTS* DESIRABLE: <130 MG/DL <110 MG/DL BORDERLINE-HIGH RISK: 130-159 MG/DL 110-129 MG/DL HIGH RISK: >160 MG/DL >130 MG/DL *CHILDREN AND ADOLESCENTS REPRESENTS INDIVIDUALA AGED 2-19 YEARS EXCLUSIVE. ID Date Data Source [id number] 08/03/2020 08:00:00 AM EST [facility] ([facility] Name Value Range Interpretation Code Description Data Haylee rce(s) Supporting Document(s) Glucose, Fasting 166 mg/dL 70-100 Above high normal [facility] ([facility] Blood Urea Nitrogen 29 mg/dL 7-18 Above high normal [facility] ([facility] Creatinine For GFR 1.64 mg/dL 0.55-1.30 Above high normal [facility] ([facility] Glomerular Filtration Rate 33.1 Below low normal [facility] ([facility] <content>Units are mL/min/1.73 m2</content>
<content></content>
<content>Chronic Kidney Disease Staging per NKF:</content>
<content></content>
<content>Stage I & II GFR >=60 Normal to Mildly Decreased</content>
<content>Stage III GFR 30-59 Moderately Decreased</content>
<content>Stage IV GFR 15-29 Severely Decreased</content>
<content>Stage V GFR <15 Very Little GFR Left</content>
<content>ESRD GFR <15 on DOLL REPAIRER</content>
<content></content> Sodium Level 143 meq/L 136-145 Normal (applies to non-numeric res ults) [facility] ([facility] Potassium Serum 4.0 meq/L 3.5-5.1 Normal (applies to non-numeric results) [facility] ([facility] Chloride Level 111 meq/L 98-107 Above high normal [facility] ([facility] Carbon Dioxide Level 27 meq/L 21-32 Normal (applies to non-num pricila results) [facility] ([facility] Anion Gap 5 meq/L 8-16 Below low normal [facility] ( [facility] Calcium Level 8.8 mg/dL 8.8-10.2 Normal (applies to non-numeric re sults) [facility] ([facility] ID Date Data Source [id number] 08/03/2020 08:00:00 AM EST [facility] ([facility] Name Value Range Interpretation Code Description Data Haylee rce(s) Supporting Document(s) Prothrombin Time 12.4 s 12.5-14.3 Normal (applies to non-numeric results) [facility] ([facility] Inr 0.91 Normal (applies to non-numeric resul ts) [facility] ([facility] THERAPUTIC HUMAN INR VALUES INDICATIONS NORMAL RANGES PROPHYLAXIS/TREATMENT OF: VENOUS THROMBOSIS 2.0-3.0 PULMONARY EMBOLISM 2.0-3.0 PREVENTION OF SYSTEMIC EMBOLISM FROM: TISSUE HEART VALVES 2.0-3.0 ACUTE MYOCARDIAL INFARCTION 2.0-3.0 VALVULAR HEART DISEASE 2.0-3.0 ATRIAL FIBRILLATION 2.0-3.0 MECHANICAL VALVES(HIGH RISK) 2.5-3.5 RECURRENT MYOCARDIAL INFARCTION 2.5-3.5 ID Date Data Source [id number] 08/03/2020 08:00:00 AM EST [facility] ([facility] Name Value Range Interpretation Code Description Data Haylee rce(s) Supporting Document(s) White Blood Count 11.8 10 4.0-10.0 Above high normal [facility] ([facility] Hemoglobin 11.5 g/dL 12.0-15.5 Below low normal [facility] ( [facility] Red Blood Count 3.60 10 4.00-5.40 Below low normal [facility] ([facility] Mean Corpuscular Volume 100.8 fl 80.0-96.0 Above high normal [facility] ([facility] Hematocrit 36.3 % 36.0-47.0 Normal (applies to non-numeric resul ts) [facility] ([facility] Mean Corpuscular Hemoglobin 31.9 pg 27.0-33.0 Norm al (applies to non-numeric results) [facility] ([facility] Red Cell Distribution Width 16.1 % 11.5-14.5 Above high normal [facility] ([facility] Mean Corpuscular HGB Conc 31.7 g/dL 32.0-36.5 Below low normal [facility] ([facility] Platelet Count, Automated 365 10 150-450 Normal (applies to non-numeric results) [facility] ([facility] ) Nucleated Red Blood Cell % 0.0 % 0-0 Normal (applies to n on-numeric results) [facility] ([facility] ID Date Data Source [id number] 08/03/2020 07:58:00 AM EST [facility] ([facility] Name Value Range Interpretation Code Description Data Haylee rce(s) Supporting Document(s) Glucose [Mass/volume] in Capillary blood by Glucometer 159 mg/dL 80-115 Above high normal [facility] ([facility] ID Date Data Source [id number] 08/01/2020 08:39:00 AM EST [facility] ([facility] Name Value Range Interpretation Code Description Data Haylee rce(s) Supporting Document(s) LDL Direct 33 mg/dL 0-99 [facility] ([facility]) Comment LDL Direct Laboratory test result [facility] ([facility]) Performed at: [facility] [id number] General Supervisor: Britany Gaona MD, Phone: [phone] ID Date Data Source [id number] 08/01/2020 08:39:00 AM EST [facility] ([facility]) Name Value Range Interpretation Code Description Data Haylee rce(s) Supporting Document(s) Cholesterol Level 125 mg/dL [facility] ([facility]) Triglycerides Level 173 mg/dL [facility] ([facility]) Non-HDL-C 76 mg/dL [facility] LDL Cholesterol 41 mg/dL [facility] ([facility]) HDL Cholesterol 49 mg/dL [facility] ([facility]) Cholesterol Risk Ratio 2.551 [facility] ([facility]) ID Date Data Source [id number] 08/01/2020 08:39:00 AM EST [facility] ([facility] Name Value Range Interpretation Code Description Data Haylee rce(s) Supporting Document(s) Laboratory test finding (navigational concept) 33 mg/dL 0 -99 Normal (applies to non-numeric results) [facility] ([facility] Laboratory test finding (navigational concept) Laboratory test r esult Normal (applies to non-numeric results) [facility] Performed at: [facility] [address] [id number] General Supervisor: Britany Gaona MD, Phone: [phone] ID Date Data Source [id number] 08/01/2020 08:39:00 AM EST [facility] ([facility] Name Value Range Interpretation Code Description Data Haylee rce(s) Supporting Document(s) Triglycerides Level 173 mg/dL Above high normal [facility] ([facility] Cholesterol Level 125 mg/dL Normal (applies to non-numeri c results) [facility] ([facility] HDL Cholesterol 49 mg/dL Normal (applies to non-numeric results) [facility] ([facility] LDL Cholesterol 41 mg/dL Normal (applies to non-numeric results) [facility] ([facility] Non-HDL-C 76 mg/dL Normal (applies to non-numeric resul ts) [facility] ([facility] Cholesterol Risk Ratio 2.551 Normal (applies to non-n umeric results) [facility] ([facility] ID Date Data Source [id number] 07/27/2020 02:39:00 PM EST [facility] ([facility] Name Value Range Interpretation Code Description Data Haylee rce(s) Supporting Document(s) Glu 138 mg/dL 70-110 Above high normal [facility] ([facility] NORMAL RANGES Age WBC RBC HGB HCT MCV PLT Adult M 4.1-10.9 4.20-6.30 12.0-18.0 37.0-51.0 80-97 140-440 Adult F 4.1-10.9 4.04-5.48 12.0-18.0 37.0-51.0 80-97 140-440 0 -1 Yr 5.0-20.0 3.9-5.9 15-18 MV: 44 MV: 91 MV: 277 2-9 Yr. 6.0-17.0 3.8-5.4 11-13 MV: 37 MV: 78 MV: 300 10 Yrs. 5.0-13.0 3.8-5.4 12-15 MV: 39 MV: 80 MV: 250 NOTE: * FOR ADULT BLACK MALES AND FEMALES, NORMAL WBC IS 2.9-7.7 K/ML * FOR ADULT BLACK MALES AND FEMALES, NORMAL RBC,HGB, AND HCT IS 5% LESS SOURCE FOR DATA: [employer] DYN 1800 OPERATION MANUAL( AUTOMATED BLOOD COUNTS AND DIFF.) APPENDIX B-3 CHRONIC KIDNEY DISEASE STAGING PER NKF: MALE GFR INTERPRETATION: 20-49 YRS: >60 mL/min Normal 50-59 YRS: >56 mL/min Normal 60-69 YRS: >49 mL/min Normal 70-79 YRS: >42 mL/min Normal 80 and above >35 mL/min Normal FEMALE GRF INTERPRETATION: 20-39 YRS: >60 mL/min Normal 40-49 YRS: >58 mL/min Normal 50-59 YRS: >51 mL/min Normal 60-69 YRS: >45 mL/min Normal 70-79 YRS: >39 mL/min Normal 80 and above >32 mL/min Normal BUN 33 mg/dL 8-23 Above high normal [facility] ([facility] NORMAL RANGES Age WBC RBC HGB HCT MCV PLT Adult M 4.1-10.9 4.20-6.30 12.0-18.0 37.0-51.0 80-97 140-440 Adult F 4.1-10.9 4.04-5.48 12.0-18.0 37.0-51.0 80-97 140-440 0 -1 Yr 5.0-20.0 3.9-5.9 15-18 MV: 44 MV: 91 MV: 277 2-9 Yr. 6.0-17.0 3.8-5.4 11-13 MV: 37 MV: 78 MV: 300 10 Yrs. 5.0-13.0 3.8-5.4 12-15 MV: 39 MV: 80 MV: 250 NOTE: * FOR ADULT BLACK MALES AND FEMALES, NORMAL WBC IS 2.9-7.7 K/ML * FOR ADULT BLACK MALES AND FEMALES, NORMAL RBC,HGB, AND HCT IS 5% LESS SOURCE FOR DATA: 23press 1800 OPERATION MANUAL( AUTOMATED BLOOD COUNTS AND DIFF.) APPENDIX B-3 CHRONIC KIDNEY DISEASE STAGING PER NKF: MALE GFR INTERPRETATION: 20-49 YRS: >60 mL/min Normal 50-59 YRS: >56 mL/min Normal 60-69 YRS: >49 mL/min Normal 70-79 YRS: >42 mL/min Normal 80 and above >35 mL/min Normal FEMALE GRF INTERPRETATION: 20-39 YRS: >60 mL/min Normal 40-49 YRS: >58 mL/min Normal 50-59 YRS: >51 mL/min Normal 60-69 YRS: >45 mL/min Normal 70-79 YRS: >39 mL/min Normal 80 and above >32 mL/min Normal Creat 2.0 mg/dL 0.5-1.0 Above high normal [facility] ([facility] NORMAL RANGES Age WBC RBC HGB HCT MCV PLT Adult M 4.1-10.9 4.20-6.30 12.0-18.0 37.0-51.0 80-97 140-440 Adult F 4.1-10.9 4.04-5.48 12.0-18.0 37.0-51.0 80-97 140-440 0 -1 Yr 5.0-20.0 3.9-5.9 15-18 MV: 44 MV: 91 MV: 277 2-9 Yr. 6.0-17.0 3.8-5.4 11-13 MV: 37 MV: 78 MV: 300 10 Yrs. 5.0-13.0 3.8-5.4 12-15 MV: 39 MV: 80 MV: 250 NOTE: * FOR ADULT BLACK MALES AND FEMALES, NORMAL WBC IS 2.9-7.7 K/ML * FOR ADULT BLACK MALES AND FEMALES, NORMAL RBC,HGB, AND HCT IS 5% LESS SOURCE FOR DATA: 23press 1800 OPERATION MANUAL( AUTOMATED BLOOD COUNTS AND DIFF.) APPENDIX B-3 CHRONIC KIDNEY DISEASE STAGING PER NKF: MALE GFR INTERPRETATION: 20-49 YRS: >60 mL/min Normal 50-59 YRS: >56 mL/min Normal 60-69 YRS: >49 mL/min Normal 70-79 YRS: >42 mL/min Normal 80 and above >35 mL/min Normal FEMALE GRF INTERPRETATION: 20-39 YRS: >60 mL/min Normal 40-49 YRS: >58 mL/min Normal 50-59 YRS: >51 mL/min Normal 60-69 YRS: >45 mL/min Normal 70-79 YRS: >39 mL/min Normal 80 and above >32 mL/min Normal BUN/Creatinine Ratio 16.6 [facility] ([facility] NORMAL RANGES Age WBC RBC HGB HCT MCV PLT Adult M 4.1-10.9 4.20-6.30 12.0-18.0 37.0-51.0 80-97 140-440 Adult F 4.1-10.9 4.04-5.48 12.0-18.0 37.0-51.0 80-97 140-440 0 -1 Yr 5.0-20.0 3.9-5.9 15-18 MV: 44 MV: 91 MV: 277 2-9 Yr. 6.0-17.0 3.8-5.4 11-13 MV: 37 MV: 78 MV: 300 10 Yrs. 5.0-13.0 3.8-5.4 12-15 MV: 39 MV: 80 MV: 250 NOTE: * FOR ADULT BLACK MALES AND FEMALES, NORMAL WBC IS 2.9-7.7 K/ML * FOR ADULT BLACK MALES AND FEMALES, NORMAL RBC,HGB, AND HCT IS 5% LESS SOURCE FOR DATA: 23press 1800 OPERATION MANUAL( AUTOMATED BLOOD COUNTS AND DIFF.) APPENDIX B-3 CHRONIC KIDNEY DISEASE STAGING PER NKF: MALE GFR INTERPRETATION: 20-49 YRS: >60 mL/min Normal 50-59 YRS: >56 mL/min Normal 60-69 YRS: >49 mL/min Normal 70-79 YRS: >42 mL/min Normal 80 and above >35 mL/min Normal FEMALE GRF INTERPRETATION: 20-39 YRS: >60 mL/min Normal 40-49 YRS: >58 mL/min Normal 50-59 YRS: >51 mL/min Normal 60-69 YRS: >45 mL/min Normal 70-79 YRS: >39 mL/min Normal 80 and above >32 mL/min Normal Co2 21.0 mmol/L 22.0-29.0 Below low normal [facility] ([facility] NORMAL RANGES Age WBC RBC HGB HCT MCV PLT Adult M 4.1-10.9 4.20-6.30 12.0-18.0 37.0-51.0 80-97 140-440 Adult F 4.1-10.9 4.04-5.48 12.0-18.0 37.0-51.0 80-97 140-440 0 -1 Yr 5.0-20.0 3.9-5.9 15-18 MV: 44 MV: 91 MV: 277 2-9 Yr. 6.0-17.0 3.8-5.4 11-13 MV: 37 MV: 78 MV: 300 10 Yrs. 5.0-13.0 3.8-5.4 12-15 MV: 39 MV: 80 MV: 250 NOTE: * FOR ADULT BLACK MALES AND FEMALES, NORMAL WBC IS 2.9-7.7 K/ML * FOR ADULT BLACK MALES AND FEMALES, NORMAL RBC,HGB, AND HCT IS 5% LESS SOURCE FOR DATA: 23press 1800 OPERATION MANUAL( AUTOMATED BLOOD COUNTS AND DIFF.) APPENDIX B-3 CHRONIC KIDNEY DISEASE STAGING PER NKF: MALE GFR INTERPRETATION: 20-49 YRS: >60 mL/min Normal 50-59 YRS: >56 mL/min Normal 60-69 YRS: >49 mL/min Normal 70-79 YRS: >42 mL/min Normal 80 and above >35 mL/min Normal FEMALE GRF INTERPRETATION: 20-39 YRS: >60 mL/min Normal 40-49 YRS: >58 mL/min Normal 50-59 YRS: >51 mL/min Normal 60-69 YRS: >45 mL/min Normal 70-79 YRS: >39 mL/min Normal 80 and above >32 mL/min Normal CA 9.1 mg/dL 8.6-10.2 [facility] NORMAL RANGES Age WBC RBC HGB HCT MCV PLT Adult M 4.1-10.9 4.20-6.30 12.0-18.0 37.0-51.0 80-97 140-440 Adult F 4.1-10.9 4.04-5.48 12.0-18.0 37.0-51.0 80-97 140-440 0 -1 Yr 5.0-20.0 3.9-5.9 15-18 MV: 44 MV: 91 MV: 277 2-9 Yr. 6.0-17.0 3.8-5.4 11-13 MV: 37 MV: 78 MV: 300 10 Yrs. 5.0-13.0 3.8-5.4 12-15 MV: 39 MV: 80 MV: 250 NOTE: * FOR ADULT BLACK MALES AND FEMALES, NORMAL WBC IS 2.9-7.7 K/ML * FOR ADULT BLACK MALES AND FEMALES, NORMAL RBC,HGB, AND HCT IS 5% LESS SOURCE FOR DATA: 23press 1800 OPERATION MANUAL( AUTOMATED BLOOD COUNTS AND DIFF.) APPENDIX B-3 CHRONIC KIDNEY DISEASE STAGING PER NKF: MALE GFR INTERPRETATION: 20-49 YRS: >60 mL/min Normal 50-59 YRS: >56 mL/min Normal 60-69 YRS: >49 mL/min Normal 70-79 YRS: >42 mL/min Normal 80 and above >35 mL/min Normal FEMALE GRF INTERPRETATION: 20-39 YRS: >60 mL/min Normal 40-49 YRS: >58 mL/min Normal 50-59 YRS: >51 mL/min Normal 60-69 YRS: >45 mL/min Normal 70-79 YRS: >39 mL/min Normal 80 and above >32 mL/min Normal Na 138 mmol/L 136-145 [facility] ([facility] NORMAL RANGES Age WBC RBC HGB HCT MCV PLT Adult M 4.1-10.9 4.20-6.30 12.0-18.0 37.0-51.0 80-97 140-440 Adult F 4.1-10.9 4.04-5.48 12.0-18.0 37.0-51.0 80-97 140-440 0 -1 Yr 5.0-20.0 3.9-5.9 15-18 MV: 44 MV: 91 MV: 277 2-9 Yr. 6.0-17.0 3.8-5.4 11-13 MV: 37 MV: 78 MV: 300 10 Yrs. 5.0-13.0 3.8-5.4 12-15 MV: 39 MV: 80 MV: 250 NOTE: * FOR ADULT BLACK MALES AND FEMALES, NORMAL WBC IS 2.9-7.7 K/ML * FOR ADULT BLACK MALES AND FEMALES, NORMAL RBC,HGB, AND HCT IS 5% LESS SOURCE FOR DATA: 23press 1800 OPERATION MANUAL( AUTOMATED BLOOD COUNTS AND DIFF.) APPENDIX B-3 CHRONIC KIDNEY DISEASE STAGING PER NKF: MALE GFR INTERPRETATION: 20-49 YRS: >60 mL/min Normal 50-59 YRS: >56 mL/min Normal 60-69 YRS: >49 mL/min Normal 70-79 YRS: >42 mL/min Normal 80 and above >35 mL/min Normal FEMALE GRF INTERPRETATION: 20-39 YRS: >60 mL/min Normal 40-49 YRS: >58 mL/min Normal 50-59 YRS: >51 mL/min Normal 60-69 YRS: >45 mL/min Normal 70-79 YRS: >39 mL/min Normal 80 and above >32 mL/min Normal K 4.8 mmol/L 3.5-5.1 [facility] NORMAL RANGES Age WBC RBC HGB HCT MCV PLT Adult M 4.1-10.9 4.20-6.30 12.0-18.0 37.0-51.0 80-97 140-440 Adult F 4.1-10.9 4.04-5.48 12.0-18.0 37.0-51.0 80-97 140-440 0 -1 Yr 5.0-20.0 3.9-5.9 15-18 MV: 44 MV: 91 MV: 277 2-9 Yr. 6.0-17.0 3.8-5.4 11-13 MV: 37 MV: 78 MV: 300 10 Yrs. 5.0-13.0 3.8-5.4 12-15 MV: 39 MV: 80 MV: 250 NOTE: * FOR ADULT BLACK MALES AND FEMALES, NORMAL WBC IS 2.9-7.7 K/ML * FOR ADULT BLACK MALES AND FEMALES, NORMAL RBC,HGB, AND HCT IS 5% LESS SOURCE FOR DATA: 23press 1800 OPERATION MANUAL( AUTOMATED BLOOD COUNTS AND DIFF.) APPENDIX B-3 CHRONIC KIDNEY DISEASE STAGING PER NKF: MALE GFR INTERPRETATION: 20-49 YRS: >60 mL/min Normal 50-59 YRS: >56 mL/min Normal 60-69 YRS: >49 mL/min Normal 70-79 YRS: >42 mL/min Normal 80 and above >35 mL/min Normal FEMALE GRF INTERPRETATION: 20-39 YRS: >60 mL/min Normal 40-49 YRS: >58 mL/min Normal 50-59 YRS: >51 mL/min Normal 60-69 YRS: >45 mL/min Normal 70-79 YRS: >39 mL/min Normal 80 and above >32 mL/min Normal CL 102.0 mmol/L 98.0-107.0 [facility] ([facility] NORMAL RANGES Age WBC RBC HGB HCT MCV PLT Adult M 4.1-10.9 4.20-6.30 12.0-18.0 37.0-51.0 80-97 140-440 Adult F 4.1-10.9 4.04-5.48 12.0-18.0 37.0-51.0 80-97 140-440 0 -1 Yr 5.0-20.0 3.9-5.9 15-18 MV: 44 MV: 91 MV: 277 2-9 Yr. 6.0-17.0 3.8-5.4 11-13 MV: 37 MV: 78 MV: 300 10 Yrs. 5.0-13.0 3.8-5.4 12-15 MV: 39 MV: 80 MV: 250 NOTE: * FOR ADULT BLACK MALES AND FEMALES, NORMAL WBC IS 2.9-7.7 K/ML * FOR ADULT BLACK MALES AND FEMALES, NORMAL RBC,HGB, AND HCT IS 5% LESS SOURCE FOR DATA: 23press 1800 OPERATION MANUAL( AUTOMATED BLOOD COUNTS AND DIFF.) APPENDIX B-3 CHRONIC KIDNEY DISEASE STAGING PER NKF: MALE GFR INTERPRETATION: 20-49 YRS: >60 mL/min Normal 50-59 YRS: >56 mL/min Normal 60-69 YRS: >49 mL/min Normal 70-79 YRS: >42 mL/min Normal 80 and above >35 mL/min Normal FEMALE GRF INTERPRETATION: 20-39 YRS: >60 mL/min Normal 40-49 YRS: >58 mL/min Normal 50-59 YRS: >51 mL/min Normal 60-69 YRS: >45 mL/min Normal 70-79 YRS: >39 mL/min Normal 80 and above >32 mL/min Normal eGFR 29 # [facility] ( [facility] NORMAL RANGES Age WBC RBC HGB HCT MCV PLT Adult M 4.1-10.9 4.20-6.30 12.0-18.0 37.0-51.0 80- 140-440 Adult F 4.1-10.9 4.04-5.48 12.0-18.0 37.0-51.0 80- 140-440 0 -1 Yr 5.0-20.0 3.9-5.9 15-18 MV: 44 MV: 91 MV: 277 2-9 Yr. 6.0-17.0 3.8-5.4 11-13 MV: 37 MV: 78 MV: 300 10 Yrs. 5.0-13.0 3.8-5.4 12-15 MV: 39 MV: 80 MV: 250 NOTE: * FOR ADULT BLACK MALES AND FEMALES, NORMAL WBC IS 2.9-7.7 K/ML * FOR ADULT BLACK MALES AND FEMALES, NORMAL RBC,HGB, AND HCT IS 5% LESS SOURCE FOR DATA: [employer] DYN 1800 OPERATION MANUAL( AUTOMATED BLOOD COUNTS AND DIFF.) APPENDIX B-3 CHRONIC KIDNEY DISEASE STAGING PER NKF: MALE GFR INTERPRETATION: 20-49 YRS: >60 mL/min Normal 50-59 YRS: >56 mL/min Normal 60-69 YRS: >49 mL/min Normal 70-79 YRS: >42 mL/min Normal 80 and above >35 mL/min Normal FEMALE GRF INTERPRETATION: 20-39 YRS: >60 mL/min Normal 40-49 YRS: >58 mL/min Normal 50-59 YRS: >51 mL/min Normal 60-69 YRS: >45 mL/min Normal 70-79 YRS: >39 mL/min Normal 80 and above >32 mL/min Normal Anion Gap 19 mmol/L [facility] ([facility] NORMAL RANGES Age WBC RBC HGB HCT MCV PLT Adult M 4.1-10.9 4.20-6.30 12.0-18.0 37.0-51.0 80-97 140-440 Adult F 4.1-10.9 4.04-5.48 12.0-18.0 37.0-51.0 80-97 140-440 0 -1 Yr 5.0-20.0 3.9-5.9 15-18 MV: 44 MV: 91 MV: 277 2-9 Yr. 6.0-17.0 3.8-5.4 11-13 MV: 37 MV: 78 MV: 300 10 Yrs. 5.0-13.0 3.8-5.4 12-15 MV: 39 MV: 80 MV: 250 NOTE: * FOR ADULT BLACK MALES AND FEMALES, NORMAL WBC IS 2.9-7.7 K/ML * FOR ADULT BLACK MALES AND FEMALES, NORMAL RBC,HGB, AND HCT IS 5% LESS SOURCE FOR DATA: [employer] DYN 1800 OPERATION MANUAL( AUTOMATED BLOOD COUNTS AND DIFF.) APPENDIX B-3 CHRONIC KIDNEY DISEASE STAGING PER NKF: MALE GFR INTERPRETATION: 20-49 YRS: >60 mL/min Normal 50-59 YRS: >56 mL/min Normal 60-69 YRS: >49 mL/min Normal 70-79 YRS: >42 mL/min Normal 80 and above >35 mL/min Normal FEMALE GRF INTERPRETATION: 20-39 YRS: >60 mL/min Normal 40-49 YRS: >58 mL/min Normal 50-59 YRS: >51 mL/min Normal 60-69 YRS: >45 mL/min Normal 70-79 YRS: >39 mL/min Normal 80 and above >32 mL/min Normal eGFR Non-Afr. Bahamian 25 # [facility] ([facility] NORMAL RANGES Age WBC RBC HGB HCT MCV PLT Adult M 4.1-10.9 4.20-6.30 12.0-18.0 37.0-51.0 80-97 140-440 Adult F 4.1-10.9 4.04-5.48 12.0-18.0 37.0-51.0 80-97 140-440 0 -1 Yr 5.0-20.0 3.9-5.9 15-18 MV: 44 MV: 91 MV: 277 2-9 Yr. 6.0-17.0 3.8-5.4 11-13 MV: 37 MV: 78 MV: 300 10 Yrs. 5.0-13.0 3.8-5.4 12-15 MV: 39 MV: 80 MV: 250 NOTE: * FOR ADULT BLACK MALES AND FEMALES, NORMAL WBC IS 2.9-7.7 K/ML * FOR ADULT BLACK MALES AND FEMALES, NORMAL RBC,HGB, AND HCT IS 5% LESS SOURCE FOR DATA: 23press 1800 OPERATION MANUAL( AUTOMATED BLOOD COUNTS AND DIFF.) APPENDIX B-3 CHRONIC KIDNEY DISEASE STAGING PER NKF: MALE GFR INTERPRETATION: 20-49 YRS: >60 mL/min Normal 50-59 YRS: >56 mL/min Normal 60-69 YRS: >49 mL/min Normal 70-79 YRS: >42 mL/min Normal 80 and above >35 mL/min Normal FEMALE GRF INTERPRETATION: 20-39 YRS: >60 mL/min Normal 40-49 YRS: >58 mL/min Normal 50-59 YRS: >51 mL/min Normal 60-69 YRS: >45 mL/min Normal 70-79 YRS: >39 mL/min Normal 80 and above >32 mL/min Normal ID Date Data Source [id number] 07/27/2020 02:39:00 PM LYNETTE MERIDA ([facility] Name Value Range Interpretation Code Description Data Haylee rce(s) Supporting Document(s) WBC 12.1 10E3/uL 4.1-10.9 Above high normal MICAELA Herbert ([facility] NORMAL RANGES Age WBC RBC HGB HCT MCV PLT Adult M 4.1-10.9 4.20-6.30 12.0-18.0 37.0-51.0 80-97 140-440 Adult F 4.1-10.9 4.04-5.48 12.0-18.0 37.0-51.0 80-97 140-440 0 -1 Yr 5.0-20.0 3.9-5.9 15-18 MV: 44 MV: 91 MV: 277 2-9 Yr. 6.0-17.0 3.8-5.4 11-13 MV: 37 MV: 78 MV: 300 10 Yrs. 5.0-13.0 3.8-5.4 12-15 MV: 39 MV: 80 MV: 250 NOTE: * FOR ADULT BLACK MALES AND FEMALES, NORMAL WBC IS 2.9-7.7 K/ML * FOR ADULT BLACK MALES AND FEMALES, NORMAL RBC,HGB, AND HCT IS 5% LESS SOURCE FOR DATA: 23press 1800 OPERATION MANUAL( AUTOMATED BLOOD COUNTS AND DIFF.) APPENDIX B-3 CHRONIC KIDNEY DISEASE STAGING PER NKF: MALE GFR INTERPRETATION: 20-49 YRS: >60 mL/min Normal 50-59 YRS: >56 mL/min Normal 60-69 YRS: >49 mL/min Normal 70-79 YRS: >42 mL/min Normal 80 and above >35 mL/min Normal FEMALE GRF INTERPRETATION: 20-39 YRS: >60 mL/min Normal 40-49 YRS: >58 mL/min Normal 50-59 YRS: >51 mL/min Normal 60-69 YRS: >45 mL/min Normal 70-79 YRS: >39 mL/min Normal 80 and above >32 mL/min Normal RBC 3.97 10E6/uL 4.20-6.30 Below low normal [facility] ([facility] NORMAL RANGES Age WBC RBC HGB HCT MCV PLT Adult M 4.1-10.9 4.20-6.30 12.0-18.0 37.0-51.0 80-97 140-440 Adult F 4.1-10.9 4.04-5.48 12.0-18.0 37.0-51.0 80-97 140-440 0 -1 Yr 5.0-20.0 3.9-5.9 15-18 MV: 44 MV: 91 MV: 277 2-9 Yr. 6.0-17.0 3.8-5.4 11-13 MV: 37 MV: 78 MV: 300 10 Yrs. 5.0-13.0 3.8-5.4 12-15 MV: 39 MV: 80 MV: 250 NOTE: * FOR ADULT BLACK MALES AND FEMALES, NORMAL WBC IS 2.9-7.7 K/ML * FOR ADULT BLACK MALES AND FEMALES, NORMAL RBC,HGB, AND HCT IS 5% LESS SOURCE FOR DATA: 23press 1800 OPERATION MANUAL( AUTOMATED BLOOD COUNTS AND DIFF.) APPENDIX B-3 CHRONIC KIDNEY DISEASE STAGING PER NKF: MALE GFR INTERPRETATION: 20-49 YRS: >60 mL/min Normal 50-59 YRS: >56 mL/min Normal 60-69 YRS: >49 mL/min Normal 70-79 YRS: >42 mL/min Normal 80 and above >35 mL/min Normal FEMALE GRF INTERPRETATION: 20-39 YRS: >60 mL/min Normal 40-49 YRS: >58 mL/min Normal 50-59 YRS: >51 mL/min Normal 60-69 YRS: >45 mL/min Normal 70-79 YRS: >39 mL/min Normal 80 and above >32 mL/min Normal HGB 12.7 g/dL 12.0-18.0 [facility] NORMAL RANGES Age WBC RBC HGB HCT MCV PLT Adult M 4.1-10.9 4.20-6.30 12.0-18.0 37.0-51.0 80-97 140-440 Adult F 4.1-10.9 4.04-5.48 12.0-18.0 37.0-51.0 80-97 140-440 0 -1 Yr 5.0-20.0 3.9-5.9 15-18 MV: 44 MV: 91 MV: 277 2-9 Yr. 6.0-17.0 3.8-5.4 11-13 MV: 37 MV: 78 MV: 300 10 Yrs. 5.0-13.0 3.8-5.4 12-15 MV: 39 MV: 80 MV: 250 NOTE: * FOR ADULT BLACK MALES AND FEMALES, NORMAL WBC IS 2.9-7.7 K/ML * FOR ADULT BLACK MALES AND FEMALES, NORMAL RBC,HGB, AND HCT IS 5% LESS SOURCE FOR DATA: 23press 1800 OPERATION MANUAL( AUTOMATED BLOOD COUNTS AND DIFF.) APPENDIX B-3 CHRONIC KIDNEY DISEASE STAGING PER NKF: MALE GFR INTERPRETATION: 20-49 YRS: >60 mL/min Normal 50-59 YRS: >56 mL/min Normal 60-69 YRS: >49 mL/min Normal 70-79 YRS: >42 mL/min Normal 80 and above >35 mL/min Normal FEMALE GRF INTERPRETATION: 20-39 YRS: >60 mL/min Normal 40-49 YRS: >58 mL/min Normal 50-59 YRS: >51 mL/min Normal 60-69 YRS: >45 mL/min Normal 70-79 YRS: >39 mL/min Normal 80 and above >32 mL/min Normal HCT 39.3 % 37.0-51.0 [facility] ([facility] NORMAL RANGES Age WBC RBC HGB HCT MCV PLT Adult M 4.1-10.9 4.20-6.30 12.0-18.0 37.0-51.0 80-97 140-440 Adult F 4.1-10.9 4.04-5.48 12.0-18.0 37.0-51.0 80-97 140-440 0 -1 Yr 5.0-20.0 3.9-5.9 15-18 MV: 44 MV: 91 MV: 277 2-9 Yr. 6.0-17.0 3.8-5.4 11-13 MV: 37 MV: 78 MV: 300 10 Yrs. 5.0-13.0 3.8-5.4 12-15 MV: 39 MV: 80 MV: 250 NOTE: * FOR ADULT BLACK MALES AND FEMALES, NORMAL WBC IS 2.9-7.7 K/ML * FOR ADULT BLACK MALES AND FEMALES, NORMAL RBC,HGB, AND HCT IS 5% LESS SOURCE FOR DATA: 23press 1800 OPERATION MANUAL( AUTOMATED BLOOD COUNTS AND DIFF.) APPENDIX B-3 CHRONIC KIDNEY DISEASE STAGING PER NKF: MALE GFR INTERPRETATION: 20-49 YRS: >60 mL/min Normal 50-59 YRS: >56 mL/min Normal 60-69 YRS: >49 mL/min Normal 70-79 YRS: >42 mL/min Normal 80 and above >35 mL/min Normal FEMALE GRF INTERPRETATION: 20-39 YRS: >60 mL/min Normal 40-49 YRS: >58 mL/min Normal 50-59 YRS: >51 mL/min Normal 60-69 YRS: >45 mL/min Normal 70-79 YRS: >39 mL/min Normal 80 and above >32 mL/min Normal MCV 99.0 fL 80.0-97.0 Above high normal [facility] [facility] NORMAL RANGES Age WBC RBC HGB HCT MCV PLT Adult M 4.1-10.9 4.20-6.30 12.0-18.0 37.0-51.0 80-97 140-440 Adult F 4.1-10.9 4.04-5.48 12.0-18.0 37.0-51.0 80-97 140-440 0 -1 Yr 5.0-20.0 3.9-5.9 15-18 MV: 44 MV: 91 MV: 277 2-9 Yr. 6.0-17.0 3.8-5.4 11-13 MV: 37 MV: 78 MV: 300 10 Yrs. 5.0-13.0 3.8-5.4 12-15 MV: 39 MV: 80 MV: 250 NOTE: * FOR ADULT BLACK MALES AND FEMALES, NORMAL WBC IS 2.9-7.7 K/ML * FOR ADULT BLACK MALES AND FEMALES, NORMAL RBC,HGB, AND HCT IS 5% LESS SOURCE FOR DATA: 23press 1800 OPERATION MANUAL( AUTOMATED BLOOD COUNTS AND DIFF.) APPENDIX B-3 CHRONIC KIDNEY DISEASE STAGING PER NKF: MALE GFR INTERPRETATION: 20-49 YRS: >60 mL/min Normal 50-59 YRS: >56 mL/min Normal 60-69 YRS: >49 mL/min Normal 70-79 YRS: >42 mL/min Normal 80 and above >35 mL/min Normal FEMALE GRF INTERPRETATION: 20-39 YRS: >60 mL/min Normal 40-49 YRS: >58 mL/min Normal 50-59 YRS: >51 mL/min Normal 60-69 YRS: >45 mL/min Normal 70-79 YRS: >39 mL/min Normal 80 and above >32 mL/min Normal MCH 32.0 pg 26.0-32.0 [facility] NORMAL RANGES Age WBC RBC HGB HCT MCV PLT Adult M 4.1-10.9 4.20-6.30 12.0-18.0 37.0-51.0 80-97 140-440 Adult F 4.1-10.9 4.04-5.48 12.0-18.0 37.0-51.0 80-97 140-440 0 -1 Yr 5.0-20.0 3.9-5.9 15-18 MV: 44 MV: 91 MV: 277 2-9 Yr. 6.0-17.0 3.8-5.4 11-13 MV: 37 MV: 78 MV: 300 10 Yrs. 5.0-13.0 3.8-5.4 12-15 MV: 39 MV: 80 MV: 250 NOTE: * FOR ADULT BLACK MALES AND FEMALES, NORMAL WBC IS 2.9-7.7 K/ML * FOR ADULT BLACK MALES AND FEMALES, NORMAL RBC,HGB, AND HCT IS 5% LESS SOURCE FOR DATA: G[employer]AN DYN 1800 OPERATION MANUAL( AUTOMATED BLOOD COUNTS AND DIFF.) APPENDIX B-3 CHRONIC KIDNEY DISEASE STAGING PER NKF: MALE GFR INTERPRETATION: 20-49 YRS: >60 mL/min Normal 50-59 YRS: >56 mL/min Normal 60-69 YRS: >49 mL/min Normal 70-79 YRS: >42 mL/min Normal 80 and above >35 mL/min Normal FEMALE GRF INTERPRETATION: 20-39 YRS: >60 mL/min Normal 40-49 YRS: >58 mL/min Normal 50-59 YRS: >51 mL/min Normal 60-69 YRS: >45 mL/min Normal 70-79 YRS: >39 mL/min Normal 80 and above >32 mL/min Normal MCHC 32.3 g/dL 31.0-36.0 [facility] ([facility] NORMAL RANGES Age WBC RBC HGB HCT MCV PLT Adult M 4.1-10.9 4.20-6.30 12.0-18.0 37.0-51.0 80-97 140-440 Adult F 4.1-10.9 4.04-5.48 12.0-18.0 37.0-51.0 80-97 140-440 0 -1 Yr 5.0-20.0 3.9-5.9 15-18 MV: 44 MV: 91 MV: 277 2-9 Yr. 6.0-17.0 3.8-5.4 11-13 MV: 37 MV: 78 MV: 300 10 Yrs. 5.0-13.0 3.8-5.4 12-15 MV: 39 MV: 80 MV: 250 NOTE: * FOR ADULT BLACK MALES AND FEMALES, NORMAL WBC IS 2.9-7.7 K/ML * FOR ADULT BLACK MALES AND FEMALES, NORMAL RBC,HGB, AND HCT IS 5% LESS SOURCE FOR DATA: 23press 1800 OPERATION MANUAL( AUTOMATED BLOOD COUNTS AND DIFF.) APPENDIX B-3 CHRONIC KIDNEY DISEASE STAGING PER NKF: MALE GFR INTERPRETATION: 20-49 YRS: >60 mL/min Normal 50-59 YRS: >56 mL/min Normal 60-69 YRS: >49 mL/min Normal 70-79 YRS: >42 mL/min Normal 80 and above >35 mL/min Normal FEMALE GRF INTERPRETATION: 20-39 YRS: >60 mL/min Normal 40-49 YRS: >58 mL/min Normal 50-59 YRS: >51 mL/min Normal 60-69 YRS: >45 mL/min Normal 70-79 YRS: >39 mL/min Normal 80 and above >32 mL/min Normal PLT 400 10E3/uL 140-440 [employer] ([facility] NORMAL RANGES Age WBC RBC HGB HCT MCV PLT Adult M 4.1-10.9 4.20-6.30 12.0-18.0 37.0-51.0 80-97 140-440 Adult F 4.1-10.9 4.04-5.48 12.0-18.0 37.0-51.0 80-97 140-440 0 -1 Yr 5.0-20.0 3.9-5.9 15-18 MV: 44 MV: 91 MV: 277 2-9 Yr. 6.0-17.0 3.8-5.4 11-13 MV: 37 MV: 78 MV: 300 10 Yrs. 5.0-13.0 3.8-5.4 12-15 MV: 39 MV: 80 MV: 250 NOTE: * FOR ADULT BLACK MALES AND FEMALES, NORMAL WBC IS 2.9-7.7 K/ML * FOR ADULT BLACK MALES AND FEMALES, NORMAL RBC,HGB, AND HCT IS 5% LESS SOURCE FOR DATA: 23press 1800 OPERATION MANUAL( AUTOMATED BLOOD COUNTS AND DIFF.) APPENDIX B-3 CHRONIC KIDNEY DISEASE STAGING PER NKF: MALE GFR INTERPRETATION: 20-49 YRS: >60 mL/min Normal 50-59 YRS: >56 mL/min Normal 60-69 YRS: >49 mL/min Normal 70-79 YRS: >42 mL/min Normal 80 and above >35 mL/min Normal FEMALE GRF INTERPRETATION: 20-39 YRS: >60 mL/min Normal 40-49 YRS: >58 mL/min Normal 50-59 YRS: >51 mL/min Normal 60-69 YRS: >45 mL/min Normal 70-79 YRS: >39 mL/min Normal 80 and above >32 mL/min Normal RDW-CV 16.3 % 11.5-14.5 Above high normal [facility] ([facility] NORMAL RANGES Age WBC RBC HGB HCT MCV PLT Adult M 4.1-10.9 4.20-6.30 12.0-18.0 37.0-51.0 80-97 140-440 Adult F 4.1-10.9 4.04-5.48 12.0-18.0 37.0-51.0 80-97 140-440 0 -1 Yr 5.0-20.0 3.9-5.9 15-18 MV: 44 MV: 91 MV: 277 2-9 Yr. 6.0-17.0 3.8-5.4 11-13 MV: 37 MV: 78 MV: 300 10 Yrs. 5.0-13.0 3.8-5.4 12-15 MV: 39 MV: 80 MV: 250 NOTE: * FOR ADULT BLACK MALES AND FEMALES, NORMAL WBC IS 2.9-7.7 K/ML * FOR ADULT BLACK MALES AND FEMALES, NORMAL RBC,HGB, AND HCT IS 5% LESS SOURCE FOR DATA: 23press 1800 OPERATION MANUAL( AUTOMATED BLOOD COUNTS AND DIFF.) APPENDIX B-3 CHRONIC KIDNEY DISEASE STAGING PER NKF: MALE GFR INTERPRETATION: 20-49 YRS: >60 mL/min Normal 50-59 YRS: >56 mL/min Normal 60-69 YRS: >49 mL/min Normal 70-79 YRS: >42 mL/min Normal 80 and above >35 mL/min Normal FEMALE GRF INTERPRETATION: 20-39 YRS: >60 mL/min Normal 40-49 YRS: >58 mL/min Normal 50-59 YRS: >51 mL/min Normal 60-69 YRS: >45 mL/min Normal 70-79 YRS: >39 mL/min Normal 80 and above >32 mL/min Normal Lym% 21.1 % 10.0-58.5 [facility] ([facility] NORMAL RANGES Age WBC RBC HGB HCT MCV PLT Adult M 4.1-10.9 4.20-6.30 12.0-18.0 37.0-51.0 80-97 140-440 Adult F 4.1-10.9 4.04-5.48 12.0-18.0 37.0-51.0 80-97 140-440 0 -1 Yr 5.0-20.0 3.9-5.9 15-18 MV: 44 MV: 91 MV: 277 2-9 Yr. 6.0-17.0 3.8-5.4 11-13 MV: 37 MV: 78 MV: 300 10 Yrs. 5.0-13.0 3.8-5.4 12-15 MV: 39 MV: 80 MV: 250 NOTE: * FOR ADULT BLACK MALES AND FEMALES, NORMAL WBC IS 2.9-7.7 K/ML * FOR ADULT BLACK MALES AND FEMALES, NORMAL RBC,HGB, AND HCT IS 5% LESS SOURCE FOR DATA: 23press 1800 OPERATION MANUAL( AUTOMATED BLOOD COUNTS AND DIFF.) APPENDIX B-3 CHRONIC KIDNEY DISEASE STAGING PER NKF: MALE GFR INTERPRETATION: 20-49 YRS: >60 mL/min Normal 50-59 YRS: >56 mL/min Normal 60-69 YRS: >49 mL/min Normal 70-79 YRS: >42 mL/min Normal 80 and above >35 mL/min Normal FEMALE GRF INTERPRETATION: 20-39 YRS: >60 mL/min Normal 40-49 YRS: >58 mL/min Normal 50-59 YRS: >51 mL/min Normal 60-69 YRS: >45 mL/min Normal 70-79 YRS: >39 mL/min Normal 80 and above >32 mL/min Normal Neut% 73.5 % 37.0-92.0 [facility] ([facility] NORMAL RANGES Age WBC RBC HGB HCT MCV PLT Adult M 4.1-10.9 4.20-6.30 12.0-18.0 37.0-51.0 80-97 140-440 Adult F 4.1-10.9 4.04-5.48 12.0-18.0 37.0-51.0 80-97 140-440 0 -1 Yr 5.0-20.0 3.9-5.9 15-18 MV: 44 MV: 91 MV: 277 2-9 Yr. 6.0-17.0 3.8-5.4 11-13 MV: 37 MV: 78 MV: 300 10 Yrs. 5.0-13.0 3.8-5.4 12-15 MV: 39 MV: 80 MV: 250 NOTE: * FOR ADULT BLACK MALES AND FEMALES, NORMAL WBC IS 2.9-7.7 K/ML * FOR ADULT BLACK MALES AND FEMALES, NORMAL RBC,HGB, AND HCT IS 5% LESS SOURCE FOR DATA: 23press 1800 OPERATION MANUAL( AUTOMATED BLOOD COUNTS AND DIFF.) APPENDIX B-3 CHRONIC KIDNEY DISEASE STAGING PER NKF: MALE GFR INTERPRETATION: 20-49 YRS: >60 mL/min Normal 50-59 YRS: >56 mL/min Normal 60-69 YRS: >49 mL/min Normal 70-79 YRS: >42 mL/min Normal 80 and above >35 mL/min Normal FEMALE GRF INTERPRETATION: 20-39 YRS: >60 mL/min Normal 40-49 YRS: >58 mL/min Normal 50-59 YRS: >51 mL/min Normal 60-69 YRS: >45 mL/min Normal 70-79 YRS: >39 mL/min Normal 80 and above >32 mL/min Normal MXD% 5.4 % 0.1-24.0 [place] ([facility] NORMAL RANGES Age WBC RBC HGB HCT MCV PLT Adult M 4.1-10.9 4.20-6.30 12.0-18.0 37.0-51.0 80-97 140-440 Adult F 4.1-10.9 4.04-5.48 12.0-18.0 37.0-51.0 80-97 140-440 0 -1 Yr 5.0-20.0 3.9-5.9 15-18 MV: 44 MV: 91 MV: 277 2-9 Yr. 6.0-17.0 3.8-5.4 11-13 MV: 37 MV: 78 MV: 300 10 Yrs. 5.0-13.0 3.8-5.4 12-15 MV: 39 MV: 80 MV: 250 NOTE: * FOR ADULT BLACK MALES AND FEMALES, NORMAL WBC IS 2.9-7.7 K/ML * FOR ADULT BLACK MALES AND FEMALES, NORMAL RBC,HGB, AND HCT IS 5% LESS SOURCE FOR DATA: 23press 1800 OPERATION MANUAL( AUTOMATED BLOOD COUNTS AND DIFF.) APPENDIX B-3 CHRONIC KIDNEY DISEASE STAGING PER NKF: MALE GFR INTERPRETATION: 20-49 YRS: >60 mL/min Normal 50-59 YRS: >56 mL/min Normal 60-69 YRS: >49 mL/min Normal 70-79 YRS: >42 mL/min Normal 80 and above >35 mL/min Normal FEMALE GRF INTERPRETATION: 20-39 YRS: >60 mL/min Normal 40-49 YRS: >58 mL/min Normal 50-59 YRS: >51 mL/min Normal 60-69 YRS: >45 mL/min Normal 70-79 YRS: >39 mL/min Normal 80 and above >32 mL/min Normal Lym# 2.6 10E3/uL 0.6-4.1 [facility] NORMAL RANGES Age WBC RBC HGB HCT MCV PLT Adult M 4.1-10.9 4.20-6.30 12.0-18.0 37.0-51.0 80-97 140-440 Adult F 4.1-10.9 4.04-5.48 12.0-18.0 37.0-51.0 80-97 140-440 0 -1 Yr 5.0-20.0 3.9-5.9 15-18 MV: 44 MV: 91 MV: 277 2-9 Yr. 6.0-17.0 3.8-5.4 11-13 MV: 37 MV: 78 MV: 300 10 Yrs. 5.0-13.0 3.8-5.4 12-15 MV: 39 MV: 80 MV: 250 NOTE: * FOR ADULT BLACK MALES AND FEMALES, NORMAL WBC IS 2.9-7.7 K/ML * FOR ADULT BLACK MALES AND FEMALES, NORMAL RBC,HGB, AND HCT IS 5% LESS SOURCE FOR DATA: 23press 1800 OPERATION MANUAL( AUTOMATED BLOOD COUNTS AND DIFF.) APPENDIX B-3 CHRONIC KIDNEY DISEASE STAGING PER NKF: MALE GFR INTERPRETATION: 20-49 YRS: >60 mL/min Normal 50-59 YRS: >56 mL/min Normal 60-69 YRS: >49 mL/min Normal 70-79 YRS: >42 mL/min Normal 80 and above >35 mL/min Normal FEMALE GRF INTERPRETATION: 20-39 YRS: >60 mL/min Normal 40-49 YRS: >58 mL/min Normal 50-59 YRS: >51 mL/min Normal 60-69 YRS: >45 mL/min Normal 70-79 YRS: >39 mL/min Normal 80 and above >32 mL/min Normal Neut# 8.8 % 2.0-7.8 Above high normal [facility] ([facility] NORMAL RANGES Age WBC RBC HGB HCT MCV PLT Adult M 4.1-10.9 4.20-6.30 12.0-18.0 37.0-51.0 80-97 140-440 Adult F 4.1-10.9 4.04-5.48 12.0-18.0 37.0-51.0 80-97 140-440 0 -1 Yr 5.0-20.0 3.9-5.9 15-18 MV: 44 MV: 91 MV: 277 2-9 Yr. 6.0-17.0 3.8-5.4 11-13 MV: 37 MV: 78 MV: 300 10 Yrs. 5.0-13.0 3.8-5.4 12-15 MV: 39 MV: 80 MV: 250 NOTE: * FOR ADULT BLACK MALES AND FEMALES, NORMAL WBC IS 2.9-7.7 K/ML * FOR ADULT BLACK MALES AND FEMALES, NORMAL RBC,HGB, AND HCT IS 5% LESS SOURCE FOR DATA: 23press 1800 OPERATION MANUAL( AUTOMATED BLOOD COUNTS AND DIFF.) APPENDIX B-3 CHRONIC KIDNEY DISEASE STAGING PER NKF: MALE GFR INTERPRETATION: 20-49 YRS: >60 mL/min Normal 50-59 YRS: >56 mL/min Normal 60-69 YRS: >49 mL/min Normal 70-79 YRS: >42 mL/min Normal 80 and above >35 mL/min Normal FEMALE GRF INTERPRETATION: 20-39 YRS: >60 mL/min Normal 40-49 YRS: >58 mL/min Normal 50-59 YRS: >51 mL/min Normal 60-69 YRS: >45 mL/min Normal 70-79 YRS: >39 mL/min Normal 80 and above >32 mL/min Normal MXD# 0.7 10E3/uL 0.0-1.8 [facility] ([facility] NORMAL RANGES Age WBC RBC HGB HCT MCV PLT Adult M 4.1-10.9 4.20-6.30 12.0-18.0 37.0-51.0 80-97 140-440 Adult F 4.1-10.9 4.04-5.48 12.0-18.0 37.0-51.0 80-97 140-440 0 -1 Yr 5.0-20.0 3.9-5.9 15-18 MV: 44 MV: 91 MV: 277 2-9 Yr. 6.0-17.0 3.8-5.4 11-13 MV: 37 MV: 78 MV: 300 10 Yrs. 5.0-13.0 3.8-5.4 12-15 MV: 39 MV: 80 MV: 250 NOTE: * FOR ADULT BLACK MALES AND FEMALES, NORMAL WBC IS 2.9-7.7 K/ML * FOR ADULT BLACK MALES AND FEMALES, NORMAL RBC,HGB, AND HCT IS 5% LESS SOURCE FOR DATA: 23press 1800 OPERATION MANUAL( AUTOMATED BLOOD COUNTS AND DIFF.) APPENDIX B-3 CHRONIC KIDNEY DISEASE STAGING PER NKF: MALE GFR INTERPRETATION: 20-49 YRS: >60 mL/min Normal 50-59 YRS: >56 mL/min Normal 60-69 YRS: >49 mL/min Normal 70-79 YRS: >42 mL/min Normal 80 and above >35 mL/min Normal FEMALE GRF INTERPRETATION: 20-39 YRS: >60 mL/min Normal 40-49 YRS: >58 mL/min Normal 50-59 YRS: >51 mL/min Normal 60-69 YRS: >45 mL/min Normal 70-79 YRS: >39 mL/min Normal 80 and above >32 mL/min Normal MPV 11.9 fL 9.0-13.0 [facility] ([facility] NORMAL RANGES Age WBC RBC HGB HCT MCV PLT Adult M 4.1-10.9 4.20-6.30 12.0-18.0 37.0-51.0 80- 140-440 Adult F 4.1-10.9 4.04-5.48 12.0-18.0 37.0-51.0 80- 140-440 0 -1 Yr 5.0-20.0 3.9-5.9 15-18 MV: 44 MV: 91 MV: 277 2-9 Yr. 6.0-17.0 3.8-5.4 11-13 MV: 37 MV: 78 MV: 300 10 Yrs. 5.0-13.0 3.8-5.4 12-15 MV: 39 MV: 80 MV: 250 NOTE: * FOR ADULT BLACK MALES AND FEMALES, NORMAL WBC IS 2.9-7.7 K/ML * FOR ADULT BLACK MALES AND FEMALES, NORMAL RBC,HGB, AND HCT IS 5% LESS SOURCE FOR DATA: GAGAN DYN 1800 OPERATION MANUAL( AUTOMATED BLOOD COUNTS AND DIFF.) APPENDIX B-3 CHRONIC KIDNEY DISEASE STAGING PER NKF: MALE GFR INTERPRETATION: 20-49 YRS: >60 mL/min Normal 50-59 YRS: >56 mL/min Normal 60-69 YRS: >49 mL/min Normal 70-79 YRS: >42 mL/min Normal 80 and above >35 mL/min Normal FEMALE GRF INTERPRETATION: 20-39 YRS: >60 mL/min Normal 40-49 YRS: >58 mL/min Normal 50-59 YRS: >51 mL/min Normal 60-69 YRS: >45 mL/min Normal 70-79 YRS: >39 mL/min Normal 80 and above >32 mL/min Normal ID Date Data Source [id number] 07/17/2020 05:23:00 PM EST [facility] ([facility]) Name Value Range Interpretation Code Description Data Haylee rce(s) Supporting Document(s) Glucose 113 [facility] ([facility] Blood Urea Nitrogen 37.0 [facility] ([facility]) Creatinine 2.0 [facility] ([facility]) Glomerular filtration rate/1.73 sq M.pre dicted [Volume Rate/Area] in Serum or Plasma by Creatinine-based formula (MDRD) 25 [facility] ([facility]) Potassium 5.11 [facility] ([facility]) Sodium 135.7 [facility] ([facility]) Chloride 95.6 [facility] ([facility] Carbon Dioxide 27.4 [facility] ([facility]) Calcium 8.3 [facility] ([facility]) Phosphorus 4.7 [facility] ([facility]) Albumin 3.3 [facility] ([facility]) ID Date Data Source [id number] 07/17/2020 05:23:00 PM EST [facility] ([facility]) Name Value Range Interpretation Code Description Data Haylee rce(s) Supporting Document(s) Platelets 374 [facility] ([facility] Red Blood Count 3.83 [facility] ([facility]) White Blood Count 13.2 [facility] ([facility]) Hematocrit 38.6 [facility] ([facility]) Hemoglobin 12.0 [facility] ([facility]) ID Date Data Source [id number] 07/17/2020 05:23:00 PM EST [facility] ([facility]) Name Value Range Interpretation Code Description Data Haylee rce(s) Supporting Document(s) Uric Acid 5.2 [facility] ([facility]) ID Date Data Source [id number] 06/12/2020 12:00:00 AM EST [facility]yn Med[facility] Patient Name: FELIX YIP [address] Date of : [address] [place] [address]- Date of Exam: 1P#: Fax: [phone] EXAM: CT ABDOMEN & PELVIS WITHOUT CONTRASTCLINICAL INFORMATION: Abdominal pain. Patient has a history of previousbariatric surgery.Comparison, multiples, the latest 11/17/2018.Low dose [address] scanning of the abdomen and pelvis wasobtained without the administration of intravenous contrast. Oral bowelpreparatory contrast was administered prior to the exam.There is no significant change in the lung bases.The liver, spleen, pancreas, adrenal glands, and kidneys are essentiallyunchanged. Once again, there are bilateral nephroliths, likelyrenovascular calcifications, status quo. Heavy calcific atheroscleroticchange is again seen in the abdominal aorta and common iliac arteries,status quo. There is no evidence of paraaortic adenopathy. There is nosignificant change in the appearance of the bowel loops or theirmesenteries. There is no free fluid or free air. There is no significantchange in the appearance of the osseous structures.IMPRESSION:There has been no significant change compared to the prior exam. Note isagain made of bilateral non-obstructing nephroliths as described above andprevious bariatric surgery.Accredited by the [employer] in [place].Francesca Deluna, ANA/Rebeca you for referring ABDIRAHMAN YIP to our office. Electronically Signed - FRANCESCA DELUNA DO 06/12/20 16:54 Name Value Range Interpretation Code Description Data Haylee rce(s) Supporting Document(s) ID Date Data Source [id number] 05/10/2020 10:06:00 AM EST [facility] ([facility] Name Value Range Interpretation Code Description Data Haylee rce(s) Supporting Document(s) Color Urine Laboratory test result M [facility] ([facility] Appearance of Urine Laboratory test result [facility] ([facility] PH Urine 5.5 5.0-8.0 [facility] Specific [place] 1.010 1.00-1.03 [facility] ([facility] Glucose Urine Laboratory test result [facility] ([facility] Bilirubin.total [Presence] in Urine by Test strip Laboratory test res ult [facility] ([facility] Ketones Laboratory test result [facility] ([facility] Blood Urine Laboratory test result M [facility] ([facility] Urobilinogen 0.2 EU/dl 0.2-1.0 [facility] ([facility] Protein Urine Laboratory test result Above high normal [facility] ([facility] Nitrite Laboratory test result [facility] ([facility] Leukocytes Laboratory test result Above high normal [facility] ([facility] ID Date Data Source [id number] 05/10/2020 10:06:00 AM EST [facility] ([facility] Name Value Range Interpretation Code Description Data Haylee rce(s) Supporting Document(s) Hemoglobin A1c/Hemoglobin.total in Blood 6.4 % 4.50-6.20 Above high normal [facility] ([facility] ID Date Data Source [id number] 05/10/2020 10:06:00 AM EST [facility] ([facility] Name Value Range Interpretation Code Description Data Haylee rce(s) Supporting Document(s) Creatine kinase [Enzymatic activity/volume] in Serum or Plasma 96 U /L 26-192 [facility] ([facility] NORMAL RANGES Age WBC RBC HGB HCT MCV PLT Adult M 4.1-10.9 4.20-6.30 12.0-18.0 37.0-51.0 80-97 140-440 Adult F 4.1-10.9 4.04-5.48 12.0-18.0 37.0-51.0 80-97 140-440 0 -1 Yr 5.0-20.0 3.9-5.9 15-18 MV: 44 MV: 91 MV: 277 2-9 Yr. 6.0-17.0 3.8-5.4 11-13 MV: 37 MV: 78 MV: 300 10 Yrs. 5.0-13.0 3.8-5.4 12-15 MV: 39 MV: 80 MV: 250 NOTE: * FOR ADULT BLACK MALES AND FEMALES, NORMAL WBC IS 2.9-7.7 K/ML * FOR ADULT BLACK MALES AND FEMALES, NORMAL RBC,HGB, AND HCT IS 5% LESS SOURCE FOR DATA: [employer] DYN 1800 OPERATION MANUAL( AUTOMATED BLOOD COUNTS AND DIFF.) APPENDIX B-3 CHRONIC KIDNEY DISEASE STAGING PER NKF: MALE GFR INTERPRETATION: 20-49 YRS: >60 mL/min Normal 50-59 YRS: >56 mL/min Normal 60-69 YRS: >49 mL/min Normal 70-79 YRS: >42 mL/min Normal 80 and above >35 mL/min Normal FEMALE GRF INTERPRETATION: 20-39 YRS: >60 mL/min Normal 40-49 YRS: >58 mL/min Normal 50-59 YRS: >51 mL/min Normal 60-69 YRS: >45 mL/min Normal 70-79 YRS: >39 mL/min Normal 80 and above >32 mL/min NormalCLASSIFICATION CHOLESTEROL FOR ADULTS CHILDREN/ADOLESCENTS* DESIRABLE: <200 MG/DL <170 MG/DL BORDER-LINE HIGH RISK: 200-239 MG/DL 170-199 MG/DL HIGH RISK: >240 MG/DL >200 MG/DL CLASS. FOR PRIMARY LDL CHOL PREVENTION: LDL CHOL-CHILD/ADOLESCENTS* DESIRABLE: <130 MG/DL <110 MG/DL BORDERLINE-HIGH RISK: 130-159 MG/DL 110-129 MG/DL HIGH RISK: >160 MG/DL >130 MG/DL *CHILDREN AND ADOLESCENTS REPRESENTS INDIVIDUALA AGED 2-19 YEARS EXCLUSIVE. ID Date Data Source [id number] 05/10/2020 10:06:00 AM EST [facility] ([facility] Name Value Range Interpretation Code Description Data Haylee rce(s) Supporting Document(s) Trig 145 mg/dL 40-200 [facility] ([facility] NORMAL RANGES Age WBC RBC HGB HCT MCV PLT Adult M 4.1-10.9 4.20-6.30 12.0-18.0 37.0-51.0 80-97 140-440 Adult F 4.1-10.9 4.04-5.48 12.0-18.0 37.0-51.0 80-97 140-440 0 -1 Yr 5.0-20.0 3.9-5.9 15-18 MV: 44 MV: 91 MV: 277 2-9 Yr. 6.0-17.0 3.8-5.4 11-13 MV: 37 MV: 78 MV: 300 10 Yrs. 5.0-13.0 3.8-5.4 12-15 MV: 39 MV: 80 MV: 250 NOTE: * FOR ADULT BLACK MALES AND FEMALES, NORMAL WBC IS 2.9-7.7 K/ML * FOR ADULT BLACK MALES AND FEMALES, NORMAL RBC,HGB, AND HCT IS 5% LESS SOURCE FOR DATA: [employer] DYN 1800 OPERATION MANUAL( AUTOMATED BLOOD COUNTS AND DIFF.) APPENDIX B-3 CHRONIC KIDNEY DISEASE STAGING PER NKF: MALE GFR INTERPRETATION: 20-49 YRS: >60 mL/min Normal 50-59 YRS: >56 mL/min Normal 60-69 YRS: >49 mL/min Normal 70-79 YRS: >42 mL/min Normal 80 and above >35 mL/min Normal FEMALE GRF INTERPRETATION: 20-39 YRS: >60 mL/min Normal 40-49 YRS: >58 mL/min Normal 50-59 YRS: >51 mL/min Normal 60-69 YRS: >45 mL/min Normal 70-79 YRS: >39 mL/min Normal 80 and above >32 mL/min NormalCLASSIFICATION CHOLESTEROL FOR ADULTS CHILDREN/ADOLESCENTS* DESIRABLE: <200 MG/DL <170 MG/DL BORDER-LINE HIGH RISK: 200-239 MG/DL 170-199 MG/DL HIGH RISK: >240 MG/DL >200 MG/DL CLASS. FOR PRIMARY LDL CHOL PREVENTION: LDL CHOL-CHILD/ADOLESCENTS* DESIRABLE: <130 MG/DL <110 MG/DL BORDERLINE-HIGH RISK: 130-159 MG/DL 110-129 MG/DL HIGH RISK: >160 MG/DL >130 MG/DL *CHILDREN AND ADOLESCENTS REPRESENTS INDIVIDUALA AGED 2-19 YEARS EXCLUSIVE. Chol 101 mg/dL 0-200 [facility] NORMAL RANGES Age WBC RBC HGB HCT MCV PLT Adult M 4.1-10.9 4.20-6.30 12.0-18.0 37.0-51.0 80-97 140-440 Adult F 4.1-10.9 4.04-5.48 12.0-18.0 37.0-51.0 80-97 140-440 0 -1 Yr 5.0-20.0 3.9-5.9 15-18 MV: 44 MV: 91 MV: 277 2-9 Yr. 6.0-17.0 3.8-5.4 11-13 MV: 37 MV: 78 MV: 300 10 Yrs. 5.0-13.0 3.8-5.4 12-15 MV: 39 MV: 80 MV: 250 NOTE: * FOR ADULT BLACK MALES AND FEMALES, NORMAL WBC IS 2.9-7.7 K/ML * FOR ADULT BLACK MALES AND FEMALES, NORMAL RBC,HGB, AND HCT IS 5% LESS SOURCE FOR DATA: [employer] 1800 OPERATION MANUAL( AUTOMATED BLOOD COUNTS AND DIFF.) APPENDIX B-3 CHRONIC KIDNEY DISEASE STAGING PER NKF: MALE GFR INTERPRETATION: 20-49 YRS: >60 mL/min Normal 50-59 YRS: >56 mL/min Normal 60-69 YRS: >49 mL/min Normal 70-79 YRS: >42 mL/min Normal 80 and above >35 mL/min Normal FEMALE GRF INTERPRETATION: 20-39 YRS: >60 mL/min Normal 40-49 YRS: >58 mL/min Normal 50-59 YRS: >51 mL/min Normal 60-69 YRS: >45 mL/min Normal 70-79 YRS: >39 mL/min Normal 80 and above >32 mL/min NormalCLASSIFICATION CHOLESTEROL FOR ADULTS CHILDREN/ADOLESCENTS* DESIRABLE: <200 MG/DL <170 MG/DL BORDER-LINE HIGH RISK: 200-239 MG/DL 170-199 MG/DL HIGH RISK: >240 MG/DL >200 MG/DL CLASS. FOR PRIMARY LDL CHOL PREVENTION: LDL CHOL-CHILD/ADOLESCENTS* DESIRABLE: <130 MG/DL <110 MG/DL BORDERLINE-HIGH RISK: 130-159 MG/DL 110-129 MG/DL HIGH RISK: >160 MG/DL >130 MG/DL *CHILDREN AND ADOLESCENTS REPRESENTS INDIVIDUALA AGED 2-19 YEARS EXCLUSIVE. LDL_C 26 Calc 75-129 Below low normal [facility] ( [facility] NORMAL RANGES Age WBC RBC HGB HCT MCV PLT Adult M 4.1-10.9 4.20-6.30 12.0-18.0 37.0-51.0 80-97 140-440 Adult F 4.1-10.9 4.04-5.48 12.0-18.0 37.0-51.0 80-97 140-440 0 -1 Yr 5.0-20.0 3.9-5.9 15-18 MV: 44 MV: 91 MV: 277 2-9 Yr. 6.0-17.0 3.8-5.4 11-13 MV: 37 MV: 78 MV: 300 10 Yrs. 5.0-13.0 3.8-5.4 12-15 MV: 39 MV: 80 MV: 250 NOTE: * FOR ADULT BLACK MALES AND FEMALES, NORMAL WBC IS 2.9-7.7 K/ML * FOR ADULT BLACK MALES AND FEMALES, NORMAL RBC,HGB, AND HCT IS 5% LESS SOURCE FOR DATA: [employer] 1800 OPERATION MANUAL( AUTOMATED BLOOD COUNTS AND DIFF.) APPENDIX B-3 CHRONIC KIDNEY DISEASE STAGING PER NKF: MALE GFR INTERPRETATION: 20-49 YRS: >60 mL/min Normal 50-59 YRS: >56 mL/min Normal 60-69 YRS: >49 mL/min Normal 70-79 YRS: >42 mL/min Normal 80 and above >35 mL/min Normal FEMALE GRF INTERPRETATION: 20-39 YRS: >60 mL/min Normal 40-49 YRS: >58 mL/min Normal 50-59 YRS: >51 mL/min Normal 60-69 YRS: >45 mL/min Normal 70-79 YRS: >39 mL/min Normal 80 and above >32 mL/min NormalCLASSIFICATION CHOLESTEROL FOR ADULTS CHILDREN/ADOLESCENTS* DESIRABLE: <200 MG/DL <170 MG/DL BORDER-LINE HIGH RISK: 200-239 MG/DL 170-199 MG/DL HIGH RISK: >240 MG/DL >200 MG/DL CLASS. FOR PRIMARY LDL CHOL PREVENTION: LDL CHOL-CHILD/ADOLESCENTS* DESIRABLE: <130 MG/DL <110 MG/DL BORDERLINE-HIGH RISK: 130-159 MG/DL 110-129 MG/DL HIGH RISK: >160 MG/DL >130 MG/DL *CHILDREN AND ADOLESCENTS REPRESENTS INDIVIDUALA AGED 2-19 YEARS EXCLUSIVE. Cholesterol in HDL [Mass/volume] in Serum or Plasma 46 mg/dL 45-65 [facility] ([facility] NORMAL RANGES Age WBC RBC HGB HCT MCV PLT Adult M 4.1-10.9 4.20-6.30 12.0-18.0 37.0-51.0 80-97 140-440 Adult F 4.1-10.9 4.04-5.48 12.0-18.0 37.0-51.0 80-97 140-440 0 -1 Yr 5.0-20.0 3.9-5.9 15-18 MV: 44 MV: 91 MV: 277 2-9 Yr. 6.0-17.0 3.8-5.4 11-13 MV: 37 MV: 78 MV: 300 10 Yrs. 5.0-13.0 3.8-5.4 12-15 MV: 39 MV: 80 MV: 250 NOTE: * FOR ADULT BLACK MALES AND FEMALES, NORMAL WBC IS 2.9-7.7 K/ML * FOR ADULT BLACK MALES AND FEMALES, NORMAL RBC,HGB, AND HCT IS 5% LESS SOURCE FOR DATA: 23press 1800 OPERATION MANUAL( AUTOMATED BLOOD COUNTS AND DIFF.) APPENDIX B-3 CHRONIC KIDNEY DISEASE STAGING PER NKF: MALE GFR INTERPRETATION: 20-49 YRS: >60 mL/min Normal 50-59 YRS: >56 mL/min Normal 60-69 YRS: >49 mL/min Normal 70-79 YRS: >42 mL/min Normal 80 and above >35 mL/min Normal FEMALE GRF INTERPRETATION: 20-39 YRS: >60 mL/min Normal 40-49 YRS: >58 mL/min Normal 50-59 YRS: >51 mL/min Normal 60-69 YRS: >45 mL/min Normal 70-79 YRS: >39 mL/min Normal 80 and above >32 mL/min NormalCLASSIFICATION CHOLESTEROL FOR ADULTS CHILDREN/ADOLESCENTS* DESIRABLE: <200 MG/DL <170 MG/DL BORDER-LINE HIGH RISK: 200-239 MG/DL 170-199 MG/DL HIGH RISK: >240 MG/DL >200 MG/DL CLASS. FOR PRIMARY LDL CHOL PREVENTION: LDL CHOL-CHILD/ADOLESCENTS* DESIRABLE: <130 MG/DL <110 MG/DL BORDERLINE-HIGH RISK: 130- 159 MG/DL 110-129 MG/DL HIGH RISK: >160 MG/DL >130 MG/DL *CHILDREN AND ADOLESCENTS REPRESENTS INDIVIDUALA AGED 2-19 YEARS EXCLUSIVE. Cho/HDL Ratio 2.2 Calc [facility] NORMAL RANGES Age WBC RBC HGB HCT MCV PLT Adult M 4.1-10.9 4.20-6.30 12.0-18.0 37.0-51.0 80-97 140-440 Adult F 4.1-10.9 4.04-5.48 12.0-18.0 37.0-51.0 80-97 140-440 0 -1 Yr 5.0-20.0 3.9-5.9 15-18 MV: 44 MV: 91 MV: 277 2-9 Yr. 6.0-17.0 3.8-5.4 11-13 MV: 37 MV: 78 MV: 300 10 Yrs. 5.0-13.0 3.8-5.4 12-15 MV: 39 MV: 80 MV: 250 NOTE: * FOR ADULT BLACK MALES AND FEMALES, NORMAL WBC IS 2.9-7.7 K/ML * FOR ADULT BLACK MALES AND FEMALES, NORMAL RBC,HGB, AND HCT IS 5% LESS SOURCE FOR DATA: 23press 1800 OPERATION MANUAL( AUTOMATED BLOOD COUNTS AND DIFF.) APPENDIX B-3 CHRONIC KIDNEY DISEASE STAGING PER NKF: MALE GFR INTERPRETATION: 20-49 YRS: >60 mL/min Normal 50-59 YRS: >56 mL/min Normal 60-69 YRS: >49 mL/min Normal 70-79 YRS: >42 mL/min Normal 80 and above >35 mL/min Normal FEMALE GRF INTERPRETATION: 20-39 YRS: >60 mL/min Normal 40-49 YRS: >58 mL/min Normal 50-59 YRS: >51 mL/min Normal 60-69 YRS: >45 mL/min Normal 70-79 YRS: >39 mL/min Normal 80 and above >32 mL/min NormalCLASSIFICATION CHOLESTEROL FOR ADULTS CHILDREN/ADOLESCENTS* DESIRABLE: <200 MG/DL <170 MG/DL BORDER-LINE HIGH RISK: 200-239 MG/DL 170-199 MG/DL HIGH RISK: >240 MG/DL >200 MG/DL CLASS. FOR PRIMARY LDL CHOL PREVENTION: LDL CHOL-CHILD/ADOLESCENTS* DESIRABLE: <130 MG/DL <110 MG/DL BORDERLINE-HIGH RISK: 130- 159 MG/DL 110-129 MG/DL HIGH RISK: >160 MG/DL >130 MG/DL *CHILDREN AND ADOLESCENTS REPRESENTS INDIVIDUALA AGED 2-19 YEARS EXCLUSIVE. ID Date Data Source [id number] 05/10/2020 10:06:00 AM EST [facility] ([facility] Name Value Range Interpretation Code Description Data Haylee rce(s) Supporting Document(s) Glu 41 mg/dL 70-110 Below low normal [facility] ( [facility] NORMAL RANGES Age WBC RBC HGB HCT MCV PLT Adult M 4.1-10.9 4.20-6.30 12.0-18.0 37.0-51.0 80-97 140-440 Adult F 4.1-10.9 4.04-5.48 12.0-18.0 37.0-51.0 80-97 140-440 0 -1 Yr 5.0-20.0 3.9-5.9 15-18 MV: 44 MV: 91 MV: 277 2-9 Yr. 6.0-17.0 3.8-5.4 11-13 MV: 37 MV: 78 MV: 300 10 Yrs. 5.0-13.0 3.8-5.4 12-15 MV: 39 MV: 80 MV: 250 NOTE: * FOR ADULT BLACK MALES AND FEMALES, NORMAL WBC IS 2.9-7.7 K/ML * FOR ADULT BLACK MALES AND FEMALES, NORMAL RBC,HGB, AND HCT IS 5% LESS SOURCE FOR DATA: 23press 1800 OPERATION MANUAL( AUTOMATED BLOOD COUNTS AND DIFF.) APPENDIX B-3 CHRONIC KIDNEY DISEASE STAGING PER NKF: MALE GFR INTERPRETATION: 20-49 YRS: >60 mL/min Normal 50-59 YRS: >56 mL/min Normal 60-69 YRS: >49 mL/min Normal 70-79 YRS: >42 mL/min Normal 80 and above >35 mL/min Normal FEMALE GRF INTERPRETATION: 20-39 YRS: >60 mL/min Normal 40-49 YRS: >58 mL/min Normal 50-59 YRS: >51 mL/min Normal 60-69 YRS: >45 mL/min Normal 70-79 YRS: >39 mL/min Normal 80 and above >32 mL/min NormalCLASSIFICATION CHOLESTEROL FOR ADULTS CHILDREN/ADOLESCENTS* DESIRABLE: <200 MG/DL <170 MG/DL BORDER-LINE HIGH RISK: 200-239 MG/DL 170-199 MG/DL HIGH RISK: >240 MG/DL >200 MG/DL CLASS. FOR PRIMARY LDL CHOL PREVENTION: LDL CHOL-CHILD/ADOLESCENTS* DESIRABLE: <130 MG/DL <110 MG/DL BORDERLINE-HIGH RISK: 130- 159 MG/DL 110-129 MG/DL HIGH RISK: >160 MG/DL >130 MG/DL *CHILDREN AND ADOLESCENTS REPRESENTS INDIVIDUALA AGED 2-19 YEARS EXCLUSIVE. BUN 36 mg/dL 8-23 Above high normal [facility] ([facility] NORMAL RANGES Age WBC RBC HGB HCT MCV PLT Adult M 4.1-10.9 4.20-6.30 12.0-18.0 37.0-51.0 80-97 140-440 Adult F 4.1-10.9 4.04-5.48 12.0-18.0 37.0-51.0 80-97 140-440 0 -1 Yr 5.0-20.0 3.9-5.9 15-18 MV: 44 MV: 91 MV: 277 2-9 Yr. 6.0-17.0 3.8-5.4 11-13 MV: 37 MV: 78 MV: 300 10 Yrs. 5.0-13.0 3.8-5.4 12-15 MV: 39 MV: 80 MV: 250 NOTE: * FOR ADULT BLACK MALES AND FEMALES, NORMAL WBC IS 2.9-7.7 K/ML * FOR ADULT BLACK MALES AND FEMALES, NORMAL RBC,HGB, AND HCT IS 5% LESS SOURCE FOR DATA: 23press 1800 OPERATION MANUAL( AUTOMATED BLOOD COUNTS AND DIFF.) APPENDIX B-3 CHRONIC KIDNEY DISEASE STAGING PER NKF: MALE GFR INTERPRETATION: 20-49 YRS: >60 mL/min Normal 50-59 YRS: >56 mL/min Normal 60-69 YRS: >49 mL/min Normal 70-79 YRS: >42 mL/min Normal 80 and above >35 mL/min Normal FEMALE GRF INTERPRETATION: 20-39 YRS: >60 mL/min Normal 40-49 YRS: >58 mL/min Normal 50-59 YRS: >51 mL/min Normal 60-69 YRS: >45 mL/min Normal 70-79 YRS: >39 mL/min Normal 80 and above >32 mL/min NormalCLASSIFICATION CHOLESTEROL FOR ADULTS CHILDREN/ADOLESCENTS* DESIRABLE: <200 MG/DL <170 MG/DL BORDER-LINE HIGH RISK: 200-239 MG/DL 170-199 MG/DL HIGH RISK: >240 MG/DL >200 MG/DL CLASS. FOR PRIMARY LDL CHOL PREVENTION: LDL CHOL-CHILD/ADOLESCENTS* DESIRABLE: <130 MG/DL <110 MG/DL BORDERLINE-HIGH RISK: 130- 159 MG/DL 110-129 MG/DL HIGH RISK: >160 MG/DL >130 MG/DL *CHILDREN AND ADOLESCENTS REPRESENTS INDIVIDUALA AGED 2-19 YEARS EXCLUSIVE. Creat 1.8 mg/dL 0.5-1.0 Above high normal [facility] ([facility] NORMAL RANGES Age WBC RBC HGB HCT MCV PLT Adult M 4.1-10.9 4.20-6.30 12.0-18.0 37.0-51.0 80-97 140-440 Adult F 4.1-10.9 4.04-5.48 12.0-18.0 37.0-51.0 80-97 140-440 0 -1 Yr 5.0-20.0 3.9-5.9 15-18 MV: 44 MV: 91 MV: 277 2-9 Yr. 6.0-17.0 3.8-5.4 11-13 MV: 37 MV: 78 MV: 300 10 Yrs. 5.0-13.0 3.8-5.4 12-15 MV: 39 MV: 80 MV: 250 NOTE: * FOR ADULT BLACK MALES AND FEMALES, NORMAL WBC IS 2.9-7.7 K/ML * FOR ADULT BLACK MALES AND FEMALES, NORMAL RBC,HGB, AND HCT IS 5% LESS SOURCE FOR DATA: [employer] DYN 1800 OPERATION MANUAL( AUTOMATED BLOOD COUNTS AND DIFF.) APPENDIX B-3 CHRONIC KIDNEY DISEASE STAGING PER NKF: MALE GFR INTERPRETATION: 20-49 YRS: >60 mL/min Normal 50-59 YRS: >56 mL/min Normal 60-69 YRS: >49 mL/min Normal 70-79 YRS: >42 mL/min Normal 80 and above >35 mL/min Normal FEMALE GRF INTERPRETATION: 20-39 YRS: >60 mL/min Normal 40-49 YRS: >58 mL/min Normal 50-59 YRS: >51 mL/min Normal 60-69 YRS: >45 mL/min Normal 70-79 YRS: >39 mL/min Normal 80 and above >32 mL/min NormalCLASSIFICATION CHOLESTEROL FOR ADULTS CHILDREN/ADOLESCENTS* DESIRABLE: <200 MG/DL <170 MG/DL BORDER-LINE HIGH RISK: 200-239 MG/DL 170-199 MG/DL HIGH RISK: >240 MG/DL >200 MG/DL CLASS. FOR PRIMARY LDL CHOL PREVENTION: LDL CHOL-CHILD/ADOLESCENTS* DESIRABLE: <130 MG/DL <110 MG/DL BORDERLINE-HIGH RISK: 130- 159 MG/DL 110-129 MG/DL HIGH RISK: >160 MG/DL >130 MG/DL *CHILDREN AND ADOLESCENTS REPRESENTS INDIVIDUALA AGED 2-19 YEARS EXCLUSIVE. BUN/Creatinine Ratio 20.0 CALC [facility] ([facility] NORMAL RANGES Age WBC RBC HGB HCT MCV PLT Adult M 4.1-10.9 4.20-6.30 12.0-18.0 37.0-51.0 80-97 140-440 Adult F 4.1-10.9 4.04-5.48 12.0-18.0 37.0-51.0 80-97 140-440 0 -1 Yr 5.0-20.0 3.9-5.9 15-18 MV: 44 MV: 91 MV: 277 2-9 Yr. 6.0-17.0 3.8-5.4 11-13 MV: 37 MV: 78 MV: 300 10 Yrs. 5.0-13.0 3.8-5.4 12-15 MV: 39 MV: 80 MV: 250 NOTE: * FOR ADULT BLACK MALES AND FEMALES, NORMAL WBC IS 2.9-7.7 K/ML * FOR ADULT BLACK MALES AND FEMALES, NORMAL RBC,HGB, AND HCT IS 5% LESS SOURCE FOR DATA: 23press 1800 OPERATION MANUAL( AUTOMATED BLOOD COUNTS AND DIFF.) APPENDIX B-3 CHRONIC KIDNEY DISEASE STAGING PER NKF: MALE GFR INTERPRETATION: 20-49 YRS: >60 mL/min Normal 50-59 YRS: >56 mL/min Normal 60-69 YRS: >49 mL/min Normal 70-79 YRS: >42 mL/min Normal 80 and above >35 mL/min Normal FEMALE GRF INTERPRETATION: 20-39 YRS: >60 mL/min Normal 40-49 YRS: >58 mL/min Normal 50-59 YRS: >51 mL/min Normal 60-69 YRS: >45 mL/min Normal 70-79 YRS: >39 mL/min Normal 80 and above >32 mL/min NormalCLASSIFICATION CHOLESTEROL FOR ADULTS CHILDREN/ADOLESCENTS* DESIRABLE: <200 MG/DL <170 MG/DL BORDER-LINE HIGH RISK: 200-239 MG/DL 170-199 MG/DL HIGH RISK: >240 MG/DL >200 MG/DL CLASS. FOR PRIMARY LDL CHOL PREVENTION: LDL CHOL-CHILD/ADOLESCENTS* DESIRABLE: <130 MG/DL <110 MG/DL BORDERLINE-HIGH RISK: 130- 159 MG/DL 110-129 MG/DL HIGH RISK: >160 MG/DL >130 MG/DL *CHILDREN AND ADOLESCENTS REPRESENTS INDIVIDUALA AGED 2-19 YEARS EXCLUSIVE. Na 133 mmol/L 136-145 Below low normal [facility] ( [facility] NORMAL RANGES Age WBC RBC HGB HCT MCV PLT Adult M 4.1-10.9 4.20-6.30 12.0-18.0 37.0-51.0 80-97 140-440 Adult F 4.1-10.9 4.04-5.48 12.0-18.0 37.0-51.0 80-97 140-440 0 -1 Yr 5.0-20.0 3.9-5.9 15-18 MV: 44 MV: 91 MV: 277 2-9 Yr. 6.0-17.0 3.8-5.4 11-13 MV: 37 MV: 78 MV: 300 10 Yrs. 5.0-13.0 3.8-5.4 12-15 MV: 39 MV: 80 MV: 250 NOTE: * FOR ADULT BLACK MALES AND FEMALES, NORMAL WBC IS 2.9-7.7 K/ML * FOR ADULT BLACK MALES AND FEMALES, NORMAL RBC,HGB, AND HCT IS 5% LESS SOURCE FOR DATA: 23press 1800 OPERATION MANUAL( AUTOMATED BLOOD COUNTS AND DIFF.) APPENDIX B-3 CHRONIC KIDNEY DISEASE STAGING PER NKF: MALE GFR INTERPRETATION: 20-49 YRS: >60 mL/min Normal 50-59 YRS: >56 mL/min Normal 60-69 YRS: >49 mL/min Normal 70-79 YRS: >42 mL/min Normal 80 and above >35 mL/min Normal FEMALE GRF INTERPRETATION: 20-39 YRS: >60 mL/min Normal 40-49 YRS: >58 mL/min Normal 50-59 YRS: >51 mL/min Normal 60-69 YRS: >45 mL/min Normal 70-79 YRS: >39 mL/min Normal 80 and above >32 mL/min NormalCLASSIFICATION CHOLESTEROL FOR ADULTS CHILDREN/ADOLESCENTS* DESIRABLE: <200 MG/DL <170 MG/DL BORDER-LINE HIGH RISK: 200-239 MG/DL 170-199 MG/DL HIGH RISK: >240 MG/DL >200 MG/DL CLASS. FOR PRIMARY LDL CHOL PREVENTION: LDL CHOL-CHILD/ADOLESCENTS* DESIRABLE: <130 MG/DL <110 MG/DL BORDERLINE-HIGH RISK: 130- 159 MG/DL 110-129 MG/DL HIGH RISK: >160 MG/DL >130 MG/DL *CHILDREN AND ADOLESCENTS REPRESENTS INDIVIDUALA AGED 2-19 YEARS EXCLUSIVE. K 4.8 mmol/L 3.5-5.1 [facility] NORMAL RANGES Age WBC RBC HGB HCT MCV PLT Adult M 4.1-10.9 4.20-6.30 12.0-18.0 37.0-51.0 80-97 140-440 Adult F 4.1-10.9 4.04-5.48 12.0-18.0 37.0-51.0 80-97 140-440 0 -1 Yr 5.0-20.0 3.9-5.9 15-18 MV: 44 MV: 91 MV: 277 2-9 Yr. 6.0-17.0 3.8-5.4 11-13 MV: 37 MV: 78 MV: 300 10 Yrs. 5.0-13.0 3.8-5.4 12-15 MV: 39 MV: 80 MV: 250 NOTE: * FOR ADULT BLACK MALES AND FEMALES, NORMAL WBC IS 2.9-7.7 K/ML * FOR ADULT BLACK MALES AND FEMALES, NORMAL RBC,HGB, AND HCT IS 5% LESS SOURCE FOR DATA: 23press 1800 OPERATION MANUAL( AUTOMATED BLOOD COUNTS AND DIFF.) APPENDIX B-3 CHRONIC KIDNEY DISEASE STAGING PER NKF: MALE GFR INTERPRETATION: 20-49 YRS: >60 mL/min Normal 50-59 YRS: >56 mL/min Normal 60-69 YRS: >49 mL/min Normal 70-79 YRS: >42 mL/min Normal 80 and above >35 mL/min Normal FEMALE GRF INTERPRETATION: 20-39 YRS: >60 mL/min Normal 40-49 YRS: >58 mL/min Normal 50-59 YRS: >51 mL/min Normal 60-69 YRS: >45 mL/min Normal 70-79 YRS: >39 mL/min Normal 80 and above >32 mL/min NormalCLASSIFICATION CHOLESTEROL FOR ADULTS CHILDREN/ADOLESCENTS* DESIRABLE: <200 MG/DL <170 MG/DL BORDER-LINE HIGH RISK: 200-239 MG/DL 170-199 MG/DL HIGH RISK: >240 MG/DL >200 MG/DL CLASS. FOR PRIMARY LDL CHOL PREVENTION: LDL CHOL-CHILD/ADOLESCENTS* DESIRABLE: <130 MG/DL <110 MG/DL BORDERLINE-HIGH RISK: 130- 159 MG/DL 110-129 MG/DL HIGH RISK: >160 MG/DL >130 MG/DL *CHILDREN AND ADOLESCENTS REPRESENTS INDIVIDUALA AGED 2-19 YEARS EXCLUSIVE. CL 96.7 mmol/L 98.0-107.0 Below low normal [facility] ([facility] NORMAL RANGES Age WBC RBC HGB HCT MCV PLT Adult M 4.1-10.9 4.20-6.30 12.0-18.0 37.0-51.0 80-97 140-440 Adult F 4.1-10.9 4.04-5.48 12.0-18.0 37.0-51.0 80-97 140-440 0 -1 Yr 5.0-20.0 3.9-5.9 15-18 MV: 44 MV: 91 MV: 277 2-9 Yr. 6.0-17.0 3.8-5.4 11-13 MV: 37 MV: 78 MV: 300 10 Yrs. 5.0-13.0 3.8-5.4 12-15 MV: 39 MV: 80 MV: 250 NOTE: * FOR ADULT BLACK MALES AND FEMALES, NORMAL WBC IS 2.9-7.7 K/ML * FOR ADULT BLACK MALES AND FEMALES, NORMAL RBC,HGB, AND HCT IS 5% LESS SOURCE FOR DATA: 23press 1800 OPERATION MANUAL( AUTOMATED BLOOD COUNTS AND DIFF.) APPENDIX B-3 CHRONIC KIDNEY DISEASE STAGING PER NKF: MALE GFR INTERPRETATION: 20-49 YRS: >60 mL/min Normal 50-59 YRS: >56 mL/min Normal 60-69 YRS: >49 mL/min Normal 70-79 YRS: >42 mL/min Normal 80 and above >35 mL/min Normal FEMALE GRF INTERPRETATION: 20-39 YRS: >60 mL/min Normal 40-49 YRS: >58 mL/min Normal 50-59 YRS: >51 mL/min Normal 60-69 YRS: >45 mL/min Normal 70-79 YRS: >39 mL/min Normal 80 and above >32 mL/min NormalCLASSIFICATION CHOLESTEROL FOR ADULTS CHILDREN/ADOLESCENTS* DESIRABLE: <200 MG/DL <170 MG/DL BORDER-LINE HIGH RISK: 200-239 MG/DL 170-199 MG/DL HIGH RISK: >240 MG/DL >200 MG/DL CLASS. FOR PRIMARY LDL CHOL PREVENTION: LDL CHOL-CHILD/ADOLESCENTS* DESIRABLE: <130 MG/DL <110 MG/DL BORDERLINE-HIGH RISK: 130- 159 MG/DL 110-129 MG/DL HIGH RISK: >160 MG/DL >130 MG/DL *CHILDREN AND ADOLESCENTS REPRESENTS INDIVIDUALA AGED 2-19 YEARS EXCLUSIVE. CA 8.8 mg/dL 8.6-10.2 [facility] ([facility] NORMAL RANGES Age WBC RBC HGB HCT MCV PLT Adult M 4.1-10.9 4.20-6.30 12.0-18.0 37.0-51.0 80-97 140-440 Adult F 4.1-10.9 4.04-5.48 12.0-18.0 37.0-51.0 80-97 140-440 0 -1 Yr 5.0-20.0 3.9-5.9 15-18 MV: 44 MV: 91 MV: 277 2-9 Yr. 6.0-17.0 3.8-5.4 11-13 MV: 37 MV: 78 MV: 300 10 Yrs. 5.0-13.0 3.8-5.4 12-15 MV: 39 MV: 80 MV: 250 NOTE: * FOR ADULT BLACK MALES AND FEMALES, NORMAL WBC IS 2.9-7.7 K/ML * FOR ADULT BLACK MALES AND FEMALES, NORMAL RBC,HGB, AND HCT IS 5% LESS SOURCE FOR DATA: 23press 1800 OPERATION MANUAL( AUTOMATED BLOOD COUNTS AND DIFF.) APPENDIX B-3 CHRONIC KIDNEY DISEASE STAGING PER NKF: MALE GFR INTERPRETATION: 20-49 YRS: >60 mL/min Normal 50-59 YRS: >56 mL/min Normal 60-69 YRS: >49 mL/min Normal 70-79 YRS: >42 mL/min Normal 80 and above >35 mL/min Normal FEMALE GRF INTERPRETATION: 20-39 YRS: >60 mL/min Normal 40-49 YRS: >58 mL/min Normal 50-59 YRS: >51 mL/min Normal 60-69 YRS: >45 mL/min Normal 70-79 YRS: >39 mL/min Normal 80 and above >32 mL/min NormalCLASSIFICATION CHOLESTEROL FOR ADULTS CHILDREN/ADOLESCENTS* DESIRABLE: <200 MG/DL <170 MG/DL BORDER-LINE HIGH RISK: 200-239 MG/DL 170-199 MG/DL HIGH RISK: >240 MG/DL >200 MG/DL CLASS. FOR PRIMARY LDL CHOL PREVENTION: LDL CHOL-CHILD/ADOLESCENTS* DESIRABLE: <130 MG/DL <110 MG/DL BORDERLINE-HIGH RISK: 130- 159 MG/DL 110-129 MG/DL HIGH RISK: >160 MG/DL >130 MG/DL *CHILDREN AND ADOLESCENTS REPRESENTS INDIVIDUALA AGED 2-19 YEARS EXCLUSIVE. Co2 24.1 mmol/L 22.0-29.0 [facility] ([facility] NORMAL RANGES Age WBC RBC HGB HCT MCV PLT Adult M 4.1-10.9 4.20-6.30 12.0-18.0 37.0-51.0 80-97 140-440 Adult F 4.1-10.9 4.04-5.48 12.0-18.0 37.0-51.0 80-97 140-440 0 -1 Yr 5.0-20.0 3.9-5.9 15-18 MV: 44 MV: 91 MV: 277 2-9 Yr. 6.0-17.0 3.8-5.4 11-13 MV: 37 MV: 78 MV: 300 10 Yrs. 5.0-13.0 3.8-5.4 12-15 MV: 39 MV: 80 MV: 250 NOTE: * FOR ADULT BLACK MALES AND FEMALES, NORMAL WBC IS 2.9-7.7 K/ML * FOR ADULT BLACK MALES AND FEMALES, NORMAL RBC,HGB, AND HCT IS 5% LESS SOURCE FOR DATA: 23press 1800 OPERATION MANUAL( AUTOMATED BLOOD COUNTS AND DIFF.) APPENDIX B-3 CHRONIC KIDNEY DISEASE STAGING PER NKF: MALE GFR INTERPRETATION: 20-49 YRS: >60 mL/min Normal 50-59 YRS: >56 mL/min Normal 60-69 YRS: >49 mL/min Normal 70-79 YRS: >42 mL/min Normal 80 and above >35 mL/min Normal FEMALE GRF INTERPRETATION: 20-39 YRS: >60 mL/min Normal 40-49 YRS: >58 mL/min Normal 50-59 YRS: >51 mL/min Normal 60-69 YRS: >45 mL/min Normal 70-79 YRS: >39 mL/min Normal 80 and above >32 mL/min NormalCLASSIFICATION CHOLESTEROL FOR ADULTS CHILDREN/ADOLESCENTS* DESIRABLE: <200 MG/DL <170 MG/DL BORDER-LINE HIGH RISK: 200-239 MG/DL 170-199 MG/DL HIGH RISK: >240 MG/DL >200 MG/DL CLASS. FOR PRIMARY LDL CHOL PREVENTION: LDL CHOL-CHILD/ADOLESCENTS* DESIRABLE: <130 MG/DL <110 MG/DL BORDERLINE-HIGH RISK: 130- 159 MG/DL 110-129 MG/DL HIGH RISK: >160 MG/DL >130 MG/DL *CHILDREN AND ADOLESCENTS REPRESENTS INDIVIDUALA AGED 2-19 YEARS EXCLUSIVE. TP 5.8 g/dL 6.6-8.7 Below low normal [facility] ( [facility] NORMAL RANGES Age WBC RBC HGB HCT MCV PLT Adult M 4.1-10.9 4.20-6.30 12.0-18.0 37.0-51.0 80-97 140-440 Adult F 4.1-10.9 4.04-5.48 12.0-18.0 37.0-51.0 80-97 140-440 0 -1 Yr 5.0-20.0 3.9-5.9 15-18 MV: 44 MV: 91 MV: 277 2-9 Yr. 6.0-17.0 3.8-5.4 11-13 MV: 37 MV: 78 MV: 300 10 Yrs. 5.0-13.0 3.8-5.4 12-15 MV: 39 MV: 80 MV: 250 NOTE: * FOR ADULT BLACK MALES AND FEMALES, NORMAL WBC IS 2.9-7.7 K/ML * FOR ADULT BLACK MALES AND FEMALES, NORMAL RBC,HGB, AND HCT IS 5% LESS SOURCE FOR DATA: 23press 1800 OPERATION MANUAL( AUTOMATED BLOOD COUNTS AND DIFF.) APPENDIX B-3 CHRONIC KIDNEY DISEASE STAGING PER NKF: MALE GFR INTERPRETATION: 20-49 YRS: >60 mL/min Normal 50-59 YRS: >56 mL/min Normal 60-69 YRS: >49 mL/min Normal 70-79 YRS: >42 mL/min Normal 80 and above >35 mL/min Normal FEMALE GRF INTERPRETATION: 20-39 YRS: >60 mL/min Normal 40-49 YRS: >58 mL/min Normal 50-59 YRS: >51 mL/min Normal 60-69 YRS: >45 mL/min Normal 70-79 YRS: >39 mL/min Normal 80 and above >32 mL/min NormalCLASSIFICATION CHOLESTEROL FOR ADULTS CHILDREN/ADOLESCENTS* DESIRABLE: <200 MG/DL <170 MG/DL BORDER-LINE HIGH RISK: 200-239 MG/DL 170-199 MG/DL HIGH RISK: >240 MG/DL >200 MG/DL CLASS. FOR PRIMARY LDL CHOL PREVENTION: LDL CHOL-CHILD/ADOLESCENTS* DESIRABLE: <130 MG/DL <110 MG/DL BORDERLINE-HIGH RISK: 130- 159 MG/DL 110-129 MG/DL HIGH RISK: >160 MG/DL >130 MG/DL *CHILDREN AND ADOLESCENTS REPRESENTS INDIVIDUALA AGED 2-19 YEARS EXCLUSIVE. A/G Ratio 1.9 CALC MAGNOLIA ([facility] NORMAL RANGES Age WBC RBC HGB HCT MCV PLT Adult M 4.1-10.9 4.20-6.30 12.0-18.0 37.0-51.0 80-97 140-440 Adult F 4.1-10.9 4.04-5.48 12.0-18.0 37.0-51.0 80-97 140-440 0 -1 Yr 5.0-20.0 3.9-5.9 15-18 MV: 44 MV: 91 MV: 277 2-9 Yr. 6.0-17.0 3.8-5.4 11-13 MV: 37 MV: 78 MV: 300 10 Yrs. 5.0-13.0 3.8-5.4 12-15 MV: 39 MV: 80 MV: 250 NOTE: * FOR ADULT BLACK MALES AND FEMALES, NORMAL WBC IS 2.9-7.7 K/ML * FOR ADULT BLACK MALES AND FEMALES, NORMAL RBC,HGB, AND HCT IS 5% LESS SOURCE FOR DATA: 23press 1800 OPERATION MANUAL( AUTOMATED BLOOD COUNTS AND DIFF.) APPENDIX B-3 CHRONIC KIDNEY DISEASE STAGING PER NKF: MALE GFR INTERPRETATION: 20-49 YRS: >60 mL/min Normal 50-59 YRS: >56 mL/min Normal 60-69 YRS: >49 mL/min Normal 70-79 YRS: >42 mL/min Normal 80 and above >35 mL/min Normal FEMALE GRF INTERPRETATION: 20-39 YRS: >60 mL/min Normal 40-49 YRS: >58 mL/min Normal 50-59 YRS: >51 mL/min Normal 60-69 YRS: >45 mL/min Normal 70-79 YRS: >39 mL/min Normal 80 and above >32 mL/min NormalCLASSIFICATION CHOLESTEROL FOR ADULTS CHILDREN/ADOLESCENTS* DESIRABLE: <200 MG/DL <170 MG/DL BORDER-LINE HIGH RISK: 200-239 MG/DL 170-199 MG/DL HIGH RISK: >240 MG/DL >200 MG/DL CLASS. FOR PRIMARY LDL CHOL PREVENTION: LDL CHOL-CHILD/ADOLESCENTS* DESIRABLE: <130 MG/DL <110 MG/DL BORDERLINE-HIGH RISK: 130- 159 MG/DL 110-129 MG/DL HIGH RISK: >160 MG/DL >130 MG/DL *CHILDREN AND ADOLESCENTS REPRESENTS INDIVIDUALA AGED 2-19 YEARS EXCLUSIVE. Alb 3.8 g/dL 3.4-4.8 [facility] NORMAL RANGES Age WBC RBC HGB HCT MCV PLT Adult M 4.1-10.9 4.20-6.30 12.0-18.0 37.0-51.0 80-97 140-440 Adult F 4.1-10.9 4.04-5.48 12.0-18.0 37.0-51.0 80-97 140-440 0 -1 Yr 5.0-20.0 3.9-5.9 15-18 MV: 44 MV: 91 MV: 277 2-9 Yr. 6.0-17.0 3.8-5.4 11-13 MV: 37 MV: 78 MV: 300 10 Yrs. 5.0-13.0 3.8-5.4 12-15 MV: 39 MV: 80 MV: 250 NOTE: * FOR ADULT BLACK MALES AND FEMALES, NORMAL WBC IS 2.9-7.7 K/ML * FOR ADULT BLACK MALES AND FEMALES, NORMAL RBC,HGB, AND HCT IS 5% LESS SOURCE FOR DATA: [employer] DYN 1800 OPERATION MANUAL( AUTOMATED BLOOD COUNTS AND DIFF.) APPENDIX B-3 CHRONIC KIDNEY DISEASE STAGING PER NKF: MALE GFR INTERPRETATION: 20-49 YRS: >60 mL/min Normal 50-59 YRS: >56 mL/min Normal 60-69 YRS: >49 mL/min Normal 70-79 YRS: >42 mL/min Normal 80 and above >35 mL/min Normal FEMALE GRF INTERPRETATION: 20-39 YRS: >60 mL/min Normal 40-49 YRS: >58 mL/min Normal 50-59 YRS: >51 mL/min Normal 60-69 YRS: >45 mL/min Normal 70-79 YRS: >39 mL/min Normal 80 and above >32 mL/min NormalCLASSIFICATION CHOLESTEROL FOR ADULTS CHILDREN/ADOLESCENTS* DESIRABLE: <200 MG/DL <170 MG/DL BORDER-LINE HIGH RISK: 200-239 MG/DL 170-199 MG/DL HIGH RISK: >240 MG/DL >200 MG/DL CLASS. FOR PRIMARY LDL CHOL PREVENTION: LDL CHOL-CHILD/ADOLESCENTS* DESIRABLE: <130 MG/DL <110 MG/DL BORDERLINE-HIGH RISK: 130- 159 MG/DL 110-129 MG/DL HIGH RISK: >160 MG/DL >130 MG/DL *CHILDREN AND ADOLESCENTS REPRESENTS INDIVIDUALA AGED 2-19 YEARS EXCLUSIVE. Globulin 2.0 CALC MEDENT ([facility] NORMAL RANGES Age WBC RBC HGB HCT MCV PLT Adult M 4.1-10.9 4.20-6.30 12.0-18.0 37.0-51.0 80-97 140-440 Adult F 4.1-10.9 4.04-5.48 12.0-18.0 37.0-51.0 80-97 140-440 0 -1 Yr 5.0-20.0 3.9-5.9 15-18 MV: 44 MV: 91 MV: 277 2-9 Yr. 6.0-17.0 3.8-5.4 11-13 MV: 37 MV: 78 MV: 300 10 Yrs. 5.0-13.0 3.8-5.4 12-15 MV: 39 MV: 80 MV: 250 NOTE: * FOR ADULT BLACK MALES AND FEMALES, NORMAL WBC IS 2.9-7.7 K/ML * FOR ADULT BLACK MALES AND FEMALES, NORMAL RBC,HGB, AND HCT IS 5% LESS SOURCE FOR DATA: 23press 1800 OPERATION MANUAL( AUTOMATED BLOOD COUNTS AND DIFF.) APPENDIX B-3 CHRONIC KIDNEY DISEASE STAGING PER NKF: MALE GFR INTERPRETATION: 20-49 YRS: >60 mL/min Normal 50-59 YRS: >56 mL/min Normal 60-69 YRS: >49 mL/min Normal 70-79 YRS: >42 mL/min Normal 80 and above >35 mL/min Normal FEMALE GRF INTERPRETATION: 20-39 YRS: >60 mL/min Normal 40-49 YRS: >58 mL/min Normal 50-59 YRS: >51 mL/min Normal 60-69 YRS: >45 mL/min Normal 70-79 YRS: >39 mL/min Normal 80 and above >32 mL/min NormalCLASSIFICATION CHOLESTEROL FOR ADULTS CHILDREN/ADOLESCENTS* DESIRABLE: <200 MG/DL <170 MG/DL BORDER-LINE HIGH RISK: 200-239 MG/DL 170-199 MG/DL HIGH RISK: >240 MG/DL >200 MG/DL CLASS. FOR PRIMARY LDL CHOL PREVENTION: LDL CHOL-CHILD/ADOLESCENTS* DESIRABLE: <130 MG/DL <110 MG/DL BORDERLINE-HIGH RISK: 130- 159 MG/DL 110-129 MG/DL HIGH RISK: >160 MG/DL >130 MG/DL *CHILDREN AND ADOLESCENTS REPRESENTS INDIVIDUALA AGED 2-19 YEARS EXCLUSIVE. Alp 97.2 U/L 35-129 MAGNOLIA ([facility] NORMAL RANGES Age WBC RBC HGB HCT MCV PLT Adult M 4.1-10.9 4.20-6.30 12.0-18.0 37.0-51.0 80-97 140-440 Adult F 4.1-10.9 4.04-5.48 12.0-18.0 37.0-51.0 80-97 140-440 0 -1 Yr 5.0-20.0 3.9-5.9 15-18 MV: 44 MV: 91 MV: 277 2-9 Yr. 6.0-17.0 3.8-5.4 11-13 MV: 37 MV: 78 MV: 300 10 Yrs. 5.0-13.0 3.8-5.4 12-15 MV: 39 MV: 80 MV: 250 NOTE: * FOR ADULT BLACK MALES AND FEMALES, NORMAL WBC IS 2.9-7.7 K/ML * FOR ADULT BLACK MALES AND FEMALES, NORMAL RBC,HGB, AND HCT IS 5% LESS SOURCE FOR DATA: [employer] 1800 OPERATION MANUAL( AUTOMATED BLOOD COUNTS AND DIFF.) APPENDIX B-3 CHRONIC KIDNEY DISEASE STAGING PER NKF: MALE GFR INTERPRETATION: 20-49 YRS: >60 mL/min Normal 50-59 YRS: >56 mL/min Normal 60-69 YRS: >49 mL/min Normal 70-79 YRS: >42 mL/min Normal 80 and above >35 mL/min Normal FEMALE GRF INTERPRETATION: 20-39 YRS: >60 mL/min Normal 40-49 YRS: >58 mL/min Normal 50-59 YRS: >51 mL/min Normal 60-69 YRS: >45 mL/min Normal 70-79 YRS: >39 mL/min Normal 80 and above >32 mL/min NormalCLASSIFICATION CHOLESTEROL FOR ADULTS CHILDREN/ADOLESCENTS* DESIRABLE: <200 MG/DL <170 MG/DL BORDER-LINE HIGH RISK: 200-239 MG/DL 170-199 MG/DL HIGH RISK: >240 MG/DL >200 MG/DL CLASS. FOR PRIMARY LDL CHOL PREVENTION: LDL CHOL-CHILD/ADOLESCENTS* DESIRABLE: <130 MG/DL <110 MG/DL BORDERLINE-HIGH RISK: 130- 159 MG/DL 110-129 MG/DL HIGH RISK: >160 MG/DL >130 MG/DL *CHILDREN AND ADOLESCENTS REPRESENTS INDIVIDUALA AGED 2-19 YEARS EXCLUSIVE. Alt (SGPT) 20 U/L 0-41 [facility] ([facility] NORMAL RANGES Age WBC RBC HGB HCT MCV PLT Adult M 4.1-10.9 4.20-6.30 12.0-18.0 37.0-51.0 80-97 140-440 Adult F 4.1-10.9 4.04-5.48 12.0-18.0 37.0-51.0 80-97 140-440 0 -1 Yr 5.0-20.0 3.9-5.9 15-18 MV: 44 MV: 91 MV: 277 2-9 Yr. 6.0-17.0 3.8-5.4 11-13 MV: 37 MV: 78 MV: 300 10 Yrs. 5.0-13.0 3.8-5.4 12-15 MV: 39 MV: 80 MV: 250 NOTE: * FOR ADULT BLACK MALES AND FEMALES, NORMAL WBC IS 2.9-7.7 K/ML * FOR ADULT BLACK MALES AND FEMALES, NORMAL RBC,HGB, AND HCT IS 5% LESS SOURCE FOR DATA: [employer]press 1800 OPERATION MANUAL( AUTOMATED BLOOD COUNTS AND DIFF.) APPENDIX B-3 CHRONIC KIDNEY DISEASE STAGING PER NKF: MALE GFR INTERPRETATION: 20-49 YRS: >60 mL/min Normal 50-59 YRS: >56 mL/min Normal 60-69 YRS: >49 mL/min Normal 70-79 YRS: >42 mL/min Normal 80 and above >35 mL/min Normal FEMALE GRF INTERPRETATION: 20-39 YRS: >60 mL/min Normal 40-49 YRS: >58 mL/min Normal 50-59 YRS: >51 mL/min Normal 60-69 YRS: >45 mL/min Normal 70-79 YRS: >39 mL/min Normal 80 and above >32 mL/min NormalCLASSIFICATION CHOLESTEROL FOR ADULTS CHILDREN/ADOLESCENTS* DESIRABLE: <200 MG/DL <170 MG/DL BORDER-LINE HIGH RISK: 200-239 MG/DL 170-199 MG/DL HIGH RISK: >240 MG/DL >200 MG/DL CLASS. FOR PRIMARY LDL CHOL PREVENTION: LDL CHOL-CHILD/ADOLESCENTS* DESIRABLE: <130 MG/DL <110 MG/DL BORDERLINE-HIGH RISK: 130- 159 MG/DL 110-129 MG/DL HIGH RISK: >160 MG/DL >130 MG/DL *CHILDREN AND ADOLESCENTS REPRESENTS INDIVIDUALA AGED 2-19 YEARS EXCLUSIVE. Ast (Sgot) 17 U/L 0-40 [facility] ([facility] NORMAL RANGES Age WBC RBC HGB HCT MCV PLT Adult M 4.1-10.9 4.20-6.30 12.0-18.0 37.0-51.0 80-97 140-440 Adult F 4.1-10.9 4.04-5.48 12.0-18.0 37.0-51.0 80-97 140-440 0 -1 Yr 5.0-20.0 3.9-5.9 15-18 MV: 44 MV: 91 MV: 277 2-9 Yr. 6.0-17.0 3.8-5.4 11-13 MV: 37 MV: 78 MV: 300 10 Yrs. 5.0-13.0 3.8-5.4 12-15 MV: 39 MV: 80 MV: 250 NOTE: * FOR ADULT BLACK MALES AND FEMALES, NORMAL WBC IS 2.9-7.7 K/ML * FOR ADULT BLACK MALES AND FEMALES, NORMAL RBC,HGB, AND HCT IS 5% LESS SOURCE FOR DATA: 23press 1800 OPERATION MANUAL( AUTOMATED BLOOD COUNTS AND DIFF.) APPENDIX B-3 CHRONIC KIDNEY DISEASE STAGING PER NKF: MALE GFR INTERPRETATION: 20-49 YRS: >60 mL/min Normal 50-59 YRS: >56 mL/min Normal 60-69 YRS: >49 mL/min Normal 70-79 YRS: >42 mL/min Normal 80 and above >35 mL/min Normal FEMALE GRF INTERPRETATION: 20-39 YRS: >60 mL/min Normal 40-49 YRS: >58 mL/min Normal 50-59 YRS: >51 mL/min Normal 60-69 YRS: >45 mL/min Normal 70-79 YRS: >39 mL/min Normal 80 and above >32 mL/min NormalCLASSIFICATION CHOLESTEROL FOR ADULTS CHILDREN/ADOLESCENTS* DESIRABLE: <200 MG/DL <170 MG/DL BORDER-LINE HIGH RISK: 200-239 MG/DL 170-199 MG/DL HIGH RISK: >240 MG/DL >200 MG/DL CLASS. FOR PRIMARY LDL CHOL PREVENTION: LDL CHOL-CHILD/ADOLESCENTS* DESIRABLE: <130 MG/DL <110 MG/DL BORDERLINE-HIGH RISK: 130- 159 MG/DL 110-129 MG/DL HIGH RISK: >160 MG/DL >130 MG/DL *CHILDREN AND ADOLESCENTS REPRESENTS INDIVIDUALA AGED 2-19 YEARS EXCLUSIVE. Tbili 0.21 mg/dL 0.0-1.2 [facility] ([facility] NORMAL RANGES Age WBC RBC HGB HCT MCV PLT Adult M 4.1-10.9 4.20-6.30 12.0-18.0 37.0-51.0 80-97 140-440 Adult F 4.1-10.9 4.04-5.48 12.0-18.0 37.0-51.0 80-97 140-440 0 -1 Yr 5.0-20.0 3.9-5.9 15-18 MV: 44 MV: 91 MV: 277 2-9 Yr. 6.0-17.0 3.8-5.4 11-13 MV: 37 MV: 78 MV: 300 10 Yrs. 5.0-13.0 3.8-5.4 12-15 MV: 39 MV: 80 MV: 250 NOTE: * FOR ADULT BLACK MALES AND FEMALES, NORMAL WBC IS 2.9-7.7 K/ML * FOR ADULT BLACK MALES AND FEMALES, NORMAL RBC,HGB, AND HCT IS 5% LESS SOURCE FOR DATA: [employer] 1800 OPERATION MANUAL( AUTOMATED BLOOD COUNTS AND DIFF.) APPENDIX B-3 CHRONIC KIDNEY DISEASE STAGING PER NKF: MALE GFR INTERPRETATION: 20-49 YRS: >60 mL/min Normal 50-59 YRS: >56 mL/min Normal 60-69 YRS: >49 mL/min Normal 70-79 YRS: >42 mL/min Normal 80 and above >35 mL/min Normal FEMALE GRF INTERPRETATION: 20-39 YRS: >60 mL/min Normal 40-49 YRS: >58 mL/min Normal 50-59 YRS: >51 mL/min Normal 60-69 YRS: >45 mL/min Normal 70-79 YRS: >39 mL/min Normal 80 and above >32 mL/min NormalCLASSIFICATION CHOLESTEROL FOR ADULTS CHILDREN/ADOLESCENTS* DESIRABLE: <200 MG/DL <170 MG/DL BORDER-LINE HIGH RISK: 200-239 MG/DL 170-199 MG/DL HIGH RISK: >240 MG/DL >200 MG/DL CLASS. FOR PRIMARY LDL CHOL PREVENTION: LDL CHOL-CHILD/ADOLESCENTS* DESIRABLE: <130 MG/DL <110 MG/DL BORDERLINE-HIGH RISK: 130- 159 MG/DL 110-129 MG/DL HIGH RISK: >160 MG/DL >130 MG/DL *CHILDREN AND ADOLESCENTS REPRESENTS INDIVIDUALA AGED 2-19 YEARS EXCLUSIVE. Osmolality-Calculated 271.5 [facility] ([facility] NORMAL RANGES Age WBC RBC HGB HCT MCV PLT Adult M 4.1-10.9 4.20-6.30 12.0-18.0 37.0-51.0 80-97 140-440 Adult F 4.1-10.9 4.04-5.48 12.0-18.0 37.0-51.0 80-97 140-440 0 -1 Yr 5.0-20.0 3.9-5.9 15-18 MV: 44 MV: 91 MV: 277 2-9 Yr. 6.0-17.0 3.8-5.4 11-13 MV: 37 MV: 78 MV: 300 10 Yrs. 5.0-13.0 3.8-5.4 12-15 MV: 39 MV: 80 MV: 250 NOTE: * FOR ADULT BLACK MALES AND FEMALES, NORMAL WBC IS 2.9-7.7 K/ML * FOR ADULT BLACK MALES AND FEMALES, NORMAL RBC,HGB, AND HCT IS 5% LESS SOURCE FOR DATA: 23press 1800 OPERATION MANUAL( AUTOMATED BLOOD COUNTS AND DIFF.) APPENDIX B-3 CHRONIC KIDNEY DISEASE STAGING PER NKF: MALE GFR INTERPRETATION: 20-49 YRS: >60 mL/min Normal 50-59 YRS: >56 mL/min Normal 60-69 YRS: >49 mL/min Normal 70-79 YRS: >42 mL/min Normal 80 and above >35 mL/min Normal FEMALE GRF INTERPRETATION: 20-39 YRS: >60 mL/min Normal 40-49 YRS: >58 mL/min Normal 50-59 YRS: >51 mL/min Normal 60-69 YRS: >45 mL/min Normal 70-79 YRS: >39 mL/min Normal 80 and above >32 mL/min NormalCLASSIFICATION CHOLESTEROL FOR ADULTS CHILDREN/ADOLESCENTS* DESIRABLE: <200 MG/DL <170 MG/DL BORDER-LINE HIGH RISK: 200-239 MG/DL 170-199 MG/DL HIGH RISK: >240 MG/DL >200 MG/DL CLASS. FOR PRIMARY LDL CHOL PREVENTION: LDL CHOL-CHILD/ADOLESCENTS* DESIRABLE: <130 MG/DL <110 MG/DL BORDERLINE-HIGH RISK: 130- 159 MG/DL 110-129 MG/DL HIGH RISK: >160 MG/DL >130 MG/DL *CHILDREN AND ADOLESCENTS REPRESENTS INDIVIDUALA AGED 2-19 YEARS EXCLUSIVE. Anion Gap 17 mmol/L [facility] ([facility] NORMAL RANGES Age WBC RBC HGB HCT MCV PLT Adult M 4.1-10.9 4.20-6.30 12.0-18.0 37.0-51.0 80-97 140-440 Adult F 4.1-10.9 4.04-5.48 12.0-18.0 37.0-51.0 80-97 140-440 0 -1 Yr 5.0-20.0 3.9-5.9 15-18 MV: 44 MV: 91 MV: 277 2-9 Yr. 6.0-17.0 3.8-5.4 11-13 MV: 37 MV: 78 MV: 300 10 Yrs. 5.0-13.0 3.8-5.4 12-15 MV: 39 MV: 80 MV: 250 NOTE: * FOR ADULT BLACK MALES AND FEMALES, NORMAL WBC IS 2.9-7.7 K/ML * FOR ADULT BLACK MALES AND FEMALES, NORMAL RBC,HGB, AND HCT IS 5% LESS SOURCE FOR DATA: 23press 1800 OPERATION MANUAL( AUTOMATED BLOOD COUNTS AND DIFF.) APPENDIX B-3 CHRONIC KIDNEY DISEASE STAGING PER NKF: MALE GFR INTERPRETATION: 20-49 YRS: >60 mL/min Normal 50-59 YRS: >56 mL/min Normal 60-69 YRS: >49 mL/min Normal 70-79 YRS: >42 mL/min Normal 80 and above >35 mL/min Normal FEMALE GRF INTERPRETATION: 20-39 YRS: >60 mL/min Normal 40-49 YRS: >58 mL/min Normal 50-59 YRS: >51 mL/min Normal 60-69 YRS: >45 mL/min Normal 70-79 YRS: >39 mL/min Normal 80 and above >32 mL/min NormalCLASSIFICATION CHOLESTEROL FOR ADULTS CHILDREN/ADOLESCENTS* DESIRABLE: <200 MG/DL <170 MG/DL BORDER-LINE HIGH RISK: 200-239 MG/DL 170-199 MG/DL HIGH RISK: >240 MG/DL >200 MG/DL CLASS. FOR PRIMARY LDL CHOL PREVENTION: LDL CHOL-CHILD/ADOLESCENTS* DESIRABLE: <130 MG/DL <110 MG/DL BORDERLINE-HIGH RISK: 130- 159 MG/DL 110-129 MG/DL HIGH RISK: >160 MG/DL >130 MG/DL *CHILDREN AND ADOLESCENTS REPRESENTS INDIVIDUALA AGED 2-19 YEARS EXCLUSIVE. eGFR Non-Afr. [place]ian 28 # [facility] ([facility] NORMAL RANGES Age WBC RBC HGB HCT MCV PLT Adult M 4.1-10.9 4.20-6.30 12.0-18.0 37.0-51.0 80-97 140-440 Adult F 4.1-10.9 4.04-5.48 12.0-18.0 37.0-51.0 80-97 140-440 0 -1 Yr 5.0-20.0 3.9-5.9 15-18 MV: 44 MV: 91 MV: 277 2-9 Yr. 6.0-17.0 3.8-5.4 11-13 MV: 37 MV: 78 MV: 300 10 Yrs. 5.0-13.0 3.8-5.4 12-15 MV: 39 MV: 80 MV: 250 NOTE: * FOR ADULT BLACK MALES AND FEMALES, NORMAL WBC IS 2.9-7.7 K/ML * FOR ADULT BLACK MALES AND FEMALES, NORMAL RBC,HGB, AND HCT IS 5% LESS SOURCE FOR DATA: 23press 1800 OPERATION MANUAL( AUTOMATED BLOOD COUNTS AND DIFF.) APPENDIX B-3 CHRONIC KIDNEY DISEASE STAGING PER NKF: MALE GFR INTERPRETATION: 20-49 YRS: >60 mL/min Normal 50-59 YRS: >56 mL/min Normal 60-69 YRS: >49 mL/min Normal 70-79 YRS: >42 mL/min Normal 80 and above >35 mL/min Normal FEMALE GRF INTERPRETATION: 20-39 YRS: >60 mL/min Normal 40-49 YRS: >58 mL/min Normal 50-59 YRS: >51 mL/min Normal 60-69 YRS: >45 mL/min Normal 70-79 YRS: >39 mL/min Normal 80 and above >32 mL/min NormalCLASSIFICATION CHOLESTEROL FOR ADULTS CHILDREN/ADOLESCENTS* DESIRABLE: <200 MG/DL <170 MG/DL BORDER-LINE HIGH RISK: 200-239 MG/DL 170-199 MG/DL HIGH RISK: >240 MG/DL >200 MG/DL CLASS. FOR PRIMARY LDL CHOL PREVENTION: LDL CHOL-CHILD/ADOLESCENTS* DESIRABLE: <130 MG/DL <110 MG/DL BORDERLINE-HIGH RISK: 130- 159 MG/DL 110-129 MG/DL HIGH RISK: >160 MG/DL >130 MG/DL *CHILDREN AND ADOLESCENTS REPRESENTS INDIVIDUALA AGED 2-19 YEARS EXCLUSIVE. eGFR 33 # [facility] ( [facility] NORMAL RANGES Age WBC RBC HGB HCT MCV PLT Adult M 4.1-10.9 4.20-6.30 12.0-18.0 37.0-51.0 80-97 140-440 Adult F 4.1-10.9 4.04-5.48 12.0-18.0 37.0-51.0 80-97 140-440 0 -1 Yr 5.0-20.0 3.9-5.9 15-18 MV: 44 MV: 91 MV: 277 2-9 Yr. 6.0-17.0 3.8-5.4 11-13 MV: 37 MV: 78 MV: 300 10 Yrs. 5.0-13.0 3.8-5.4 12-15 MV: 39 MV: 80 MV: 250 NOTE: * FOR ADULT BLACK MALES AND FEMALES, NORMAL WBC IS 2.9-7.7 K/ML * FOR ADULT BLACK MALES AND FEMALES, NORMAL RBC,HGB, AND HCT IS 5% LESS SOURCE FOR DATA: [employer]press 1800 OPERATION MANUAL( AUTOMATED BLOOD COUNTS AND DIFF.) APPENDIX B-3 CHRONIC KIDNEY DISEASE STAGING PER NKF: MALE GFR INTERPRETATION: 20-49 YRS: >60 mL/min Normal 50-59 YRS: >56 mL/min Normal 60-69 YRS: >49 mL/min Normal 70-79 YRS: >42 mL/min Normal 80 and above >35 mL/min Normal FEMALE GRF INTERPRETATION: 20-39 YRS: >60 mL/min Normal 40-49 YRS: >58 mL/min Normal 50-59 YRS: >51 mL/min Normal 60-69 YRS: >45 mL/min Normal 70-79 YRS: >39 mL/min Normal 80 and above >32 mL/min NormalCLASSIFICATION CHOLESTEROL FOR ADULTS CHILDREN/ADOLESCENTS* DESIRABLE: <200 MG/DL <170 MG/DL BORDER-LINE HIGH RISK: 200-239 MG/DL 170-199 MG/DL HIGH RISK: >240 MG/DL >200 MG/DL CLASS. FOR PRIMARY LDL CHOL PREVENTION: LDL CHOL-CHILD/ADOLESCENTS* DESIRABLE: <130 MG/DL <110 MG/DL BORDERLINE-HIGH RISK: 130- 159 MG/DL 110-129 MG/DL HIGH RISK: >160 MG/DL >130 MG/DL *CHILDREN AND ADOLESCENTS REPRESENTS INDIVIDUALA AGED 2-19 YEARS EXCLUSIVE. ID Date Data Source [id number] 05/10/2020 10:06:00 AM EST [facility] ([facility] Name Value Range Interpretation Code Description Data Haylee rce(s) Supporting Document(s) WBC 13.4 10E3/uL 4.1-10.9 Above high normal MICAELA Herbert ([facility] NORMAL RANGES Age WBC RBC HGB HCT MCV PLT Adult M 4.1-10.9 4.20-6.30 12.0-18.0 37.0-51.0 80-97 140-440 Adult F 4.1-10.9 4.04-5.48 12.0-18.0 37.0-51.0 80-97 140-440 0 -1 Yr 5.0-20.0 3.9-5.9 15-18 MV: 44 MV: 91 MV: 277 2-9 Yr. 6.0-17.0 3.8-5.4 11-13 MV: 37 MV: 78 MV: 300 10 Yrs. 5.0-13.0 3.8-5.4 12-15 MV: 39 MV: 80 MV: 250 NOTE: * FOR ADULT BLACK MALES AND FEMALES, NORMAL WBC IS 2.9-7.7 K/ML * FOR ADULT BLACK MALES AND FEMALES, NORMAL RBC,HGB, AND HCT IS 5% LESS SOURCE FOR DATA: 23press 1800 OPERATION MANUAL( AUTOMATED BLOOD COUNTS AND DIFF.) APPENDIX B-3 CHRONIC KIDNEY DISEASE STAGING PER NKF: MALE GFR INTERPRETATION: 20-49 YRS: >60 mL/min Normal 50-59 YRS: >56 mL/min Normal 60-69 YRS: >49 mL/min Normal 70-79 YRS: >42 mL/min Normal 80 and above >35 mL/min Normal FEMALE GRF INTERPRETATION: 20-39 YRS: >60 mL/min Normal 40-49 YRS: >58 mL/min Normal 50-59 YRS: >51 mL/min Normal 60-69 YRS: >45 mL/min Normal 70-79 YRS: >39 mL/min Normal 80 and above >32 mL/min NormalCLASSIFICATION CHOLESTEROL FOR ADULTS CHILDREN/ADOLESCENTS* DESIRABLE: <200 MG/DL <170 MG/DL BORDER-LINE HIGH RISK: 200-239 MG/DL 170-199 MG/DL HIGH RISK: >240 MG/DL >200 MG/DL CLASS. FOR PRIMARY LDL CHOL PREVENTION: LDL CHOL-CHILD/ADOLESCENTS* DESIRABLE: <130 MG/DL <110 MG/DL BORDERLINE-HIGH RISK: 130- 159 MG/DL 110-129 MG/DL HIGH RISK: >160 MG/DL >130 MG/DL *CHILDREN AND ADOLESCENTS REPRESENTS INDIVIDUALA AGED 2-19 YEARS EXCLUSIVE. RBC 3.84 10E6/uL 4.20-6.30 Below low normal [facility] ([facility] NORMAL RANGES Age WBC RBC HGB HCT MCV PLT Adult M 4.1-10.9 4.20-6.30 12.0-18.0 37.0-51.0 80-97 140-440 Adult F 4.1-10.9 4.04-5.48 12.0-18.0 37.0-51.0 80-97 140-440 0 -1 Yr 5.0-20.0 3.9-5.9 15-18 MV: 44 MV: 91 MV: 277 2-9 Yr. 6.0-17.0 3.8-5.4 11-13 MV: 37 MV: 78 MV: 300 10 Yrs. 5.0-13.0 3.8-5.4 12-15 MV: 39 MV: 80 MV: 250 NOTE: * FOR ADULT BLACK MALES AND FEMALES, NORMAL WBC IS 2.9-7.7 K/ML * FOR ADULT BLACK MALES AND FEMALES, NORMAL RBC,HGB, AND HCT IS 5% LESS SOURCE FOR DATA: 23press 1800 OPERATION MANUAL( AUTOMATED BLOOD COUNTS AND DIFF.) APPENDIX B-3 CHRONIC KIDNEY DISEASE STAGING PER NKF: MALE GFR INTERPRETATION: 20-49 YRS: >60 mL/min Normal 50-59 YRS: >56 mL/min Normal 60-69 YRS: >49 mL/min Normal 70-79 YRS: >42 mL/min Normal 80 and above >35 mL/min Normal FEMALE GRF INTERPRETATION: 20-39 YRS: >60 mL/min Normal 40-49 YRS: >58 mL/min Normal 50-59 YRS: >51 mL/min Normal 60-69 YRS: >45 mL/min Normal 70-79 YRS: >39 mL/min Normal 80 and above >32 mL/min NormalCLASSIFICATION CHOLESTEROL FOR ADULTS CHILDREN/ADOLESCENTS* DESIRABLE: <200 MG/DL <170 MG/DL BORDER-LINE HIGH RISK: 200-239 MG/DL 170-199 MG/DL HIGH RISK: >240 MG/DL >200 MG/DL CLASS. FOR PRIMARY LDL CHOL PREVENTION: LDL CHOL-CHILD/ADOLESCENTS* DESIRABLE: <130 MG/DL <110 MG/DL BORDERLINE-HIGH RISK: 130- 159 MG/DL 110-129 MG/DL HIGH RISK: >160 MG/DL >130 MG/DL *CHILDREN AND ADOLESCENTS REPRESENTS INDIVIDUALA AGED 2-19 YEARS EXCLUSIVE. HGB 12.4 g/dL 12.0-18.0 [facility] ([facility] NORMAL RANGES Age WBC RBC HGB HCT MCV PLT Adult M 4.1-10.9 4.20-6.30 12.0-18.0 37.0-51.0 80-97 140-440 Adult F 4.1-10.9 4.04-5.48 12.0-18.0 37.0-51.0 80-97 140-440 0 -1 Yr 5.0-20.0 3.9-5.9 15-18 MV: 44 MV: 91 MV: 277 2-9 Yr. 6.0-17.0 3.8-5.4 11-13 MV: 37 MV: 78 MV: 300 10 Yrs. 5.0-13.0 3.8-5.4 12-15 MV: 39 MV: 80 MV: 250 NOTE: * FOR ADULT BLACK MALES AND FEMALES, NORMAL WBC IS 2.9-7.7 K/ML * FOR ADULT BLACK MALES AND FEMALES, NORMAL RBC,HGB, AND HCT IS 5% LESS SOURCE FOR DATA: [employer]press 1800 OPERATION MANUAL( AUTOMATED BLOOD COUNTS AND DIFF.) APPENDIX B-3 CHRONIC KIDNEY DISEASE STAGING PER NKF: MALE GFR INTERPRETATION: 20-49 YRS: >60 mL/min Normal 50-59 YRS: >56 mL/min Normal 60-69 YRS: >49 mL/min Normal 70-79 YRS: >42 mL/min Normal 80 and above >35 mL/min Normal FEMALE GRF INTERPRETATION: 20-39 YRS: >60 mL/min Normal 40-49 YRS: >58 mL/min Normal 50-59 YRS: >51 mL/min Normal 60-69 YRS: >45 mL/min Normal 70-79 YRS: >39 mL/min Normal 80 and above >32 mL/min NormalCLASSIFICATION CHOLESTEROL FOR ADULTS CHILDREN/ADOLESCENTS* DESIRABLE: <200 MG/DL <170 MG/DL BORDER-LINE HIGH RISK: 200-239 MG/DL 170-199 MG/DL HIGH RISK: >240 MG/DL >200 MG/DL CLASS. FOR PRIMARY LDL CHOL PREVENTION: LDL CHOL-CHILD/ADOLESCENTS* DESIRABLE: <130 MG/DL <110 MG/DL BORDERLINE-HIGH RISK: 130- 159 MG/DL 110-129 MG/DL HIGH RISK: >160 MG/DL >130 MG/DL *CHILDREN AND ADOLESCENTS REPRESENTS INDIVIDUALA AGED 2-19 YEARS EXCLUSIVE. HCT 38.2 % 37.0-51.0 [facility] ([facility] NORMAL RANGES Age WBC RBC HGB HCT MCV PLT Adult M 4.1-10.9 4.20-6.30 12.0-18.0 37.0-51.0 80-97 140-440 Adult F 4.1-10.9 4.04-5.48 12.0-18.0 37.0-51.0 80-97 140-440 0 -1 Yr 5.0-20.0 3.9-5.9 15-18 MV: 44 MV: 91 MV: 277 2-9 Yr. 6.0-17.0 3.8-5.4 11-13 MV: 37 MV: 78 MV: 300 10 Yrs. 5.0-13.0 3.8-5.4 12-15 MV: 39 MV: 80 MV: 250 NOTE: * FOR ADULT BLACK MALES AND FEMALES, NORMAL WBC IS 2.9-7.7 K/ML * FOR ADULT BLACK MALES AND FEMALES, NORMAL RBC,HGB, AND HCT IS 5% LESS SOURCE FOR DATA: [employer] 1800 OPERATION MANUAL( AUTOMATED BLOOD COUNTS AND DIFF.) APPENDIX B-3 CHRONIC KIDNEY DISEASE STAGING PER NKF: MALE GFR INTERPRETATION: 20-49 YRS: >60 mL/min Normal 50-59 YRS: >56 mL/min Normal 60-69 YRS: >49 mL/min Normal 70-79 YRS: >42 mL/min Normal 80 and above >35 mL/min Normal FEMALE GRF INTERPRETATION: 20-39 YRS: >60 mL/min Normal 40-49 YRS: >58 mL/min Normal 50-59 YRS: >51 mL/min Normal 60-69 YRS: >45 mL/min Normal 70-79 YRS: >39 mL/min Normal 80 and above >32 mL/min NormalCLASSIFICATION CHOLESTEROL FOR ADULTS CHILDREN/ADOLESCENTS* DESIRABLE: <200 MG/DL <170 MG/DL BORDER-LINE HIGH RISK: 200-239 MG/DL 170-199 MG/DL HIGH RISK: >240 MG/DL >200 MG/DL CLASS. FOR PRIMARY LDL CHOL PREVENTION: LDL CHOL-CHILD/ADOLESCENTS* DESIRABLE: <130 MG/DL <110 MG/DL BORDERLINE-HIGH RISK: 130- 159 MG/DL 110-129 MG/DL HIGH RISK: >160 MG/DL >130 MG/DL *CHILDREN AND ADOLESCENTS REPRESENTS INDIVIDUALA AGED 2-19 YEARS EXCLUSIVE. MCV 99.5 fL 80.0-97.0 Above high normal [facility] ([facility] NORMAL RANGES Age WBC RBC HGB HCT MCV PLT Adult M 4.1-10.9 4.20-6.30 12.0-18.0 37.0-51.0 80-97 140-440 Adult F 4.1-10.9 4.04-5.48 12.0-18.0 37.0-51.0 80-97 140-440 0 -1 Yr 5.0-20.0 3.9-5.9 15-18 MV: 44 MV: 91 MV: 277 2-9 Yr. 6.0-17.0 3.8-5.4 11-13 MV: 37 MV: 78 MV: 300 10 Yrs. 5.0-13.0 3.8-5.4 12-15 MV: 39 MV: 80 MV: 250 NOTE: * FOR ADULT BLACK MALES AND FEMALES, NORMAL WBC IS 2.9-7.7 K/ML * FOR ADULT BLACK MALES AND FEMALES, NORMAL RBC,HGB, AND HCT IS 5% LESS SOURCE FOR DATA: [employer] 1800 OPERATION MANUAL( AUTOMATED BLOOD COUNTS AND DIFF.) APPENDIX B-3 CHRONIC KIDNEY DISEASE STAGING PER NKF: MALE GFR INTERPRETATION: 20-49 YRS: >60 mL/min Normal 50-59 YRS: >56 mL/min Normal 60-69 YRS: >49 mL/min Normal 70-79 YRS: >42 mL/min Normal 80 and above >35 mL/min Normal FEMALE GRF INTERPRETATION: 20-39 YRS: >60 mL/min Normal 40-49 YRS: >58 mL/min Normal 50-59 YRS: >51 mL/min Normal 60-69 YRS: >45 mL/min Normal 70-79 YRS: >39 mL/min Normal 80 and above >32 mL/min NormalCLASSIFICATION CHOLESTEROL FOR ADULTS CHILDREN/ADOLESCENTS* DESIRABLE: <200 MG/DL <170 MG/DL BORDER-LINE HIGH RISK: 200-239 MG/DL 170-199 MG/DL HIGH RISK: >240 MG/DL >200 MG/DL CLASS. FOR PRIMARY LDL CHOL PREVENTION: LDL CHOL-CHILD/ADOLESCENTS* DESIRABLE: <130 MG/DL <110 MG/DL BORDERLINE-HIGH RISK: 130- 159 MG/DL 110-129 MG/DL HIGH RISK: >160 MG/DL >130 MG/DL *CHILDREN AND ADOLESCENTS REPRESENTS INDIVIDUALA AGED 2-19 YEARS EXCLUSIVE. MCH 32.3 pg 26.0-32.0 Above high normal [facility] ([facility] NORMAL RANGES Age WBC RBC HGB HCT MCV PLT Adult M 4.1-10.9 4.20-6.30 12.0-18.0 37.0-51.0 80-97 140-440 Adult F 4.1-10.9 4.04-5.48 12.0-18.0 37.0-51.0 80-97 140-440 0 -1 Yr 5.0-20.0 3.9-5.9 15-18 MV: 44 MV: 91 MV: 277 2-9 Yr. 6.0-17.0 3.8-5.4 11-13 MV: 37 MV: 78 MV: 300 10 Yrs. 5.0-13.0 3.8-5.4 12-15 MV: 39 MV: 80 MV: 250 NOTE: * FOR ADULT BLACK MALES AND FEMALES, NORMAL WBC IS 2.9-7.7 K/ML * FOR ADULT BLACK MALES AND FEMALES, NORMAL RBC,HGB, AND HCT IS 5% LESS SOURCE FOR DATA: 23press 1800 OPERATION MANUAL( AUTOMATED BLOOD COUNTS AND DIFF.) APPENDIX B-3 CHRONIC KIDNEY DISEASE STAGING PER NKF: MALE GFR INTERPRETATION: 20-49 YRS: >60 mL/min Normal 50-59 YRS: >56 mL/min Normal 60-69 YRS: >49 mL/min Normal 70-79 YRS: >42 mL/min Normal 80 and above >35 mL/min Normal FEMALE GRF INTERPRETATION: 20-39 YRS: >60 mL/min Normal 40-49 YRS: >58 mL/min Normal 50-59 YRS: >51 mL/min Normal 60-69 YRS: >45 mL/min Normal 70-79 YRS: >39 mL/min Normal 80 and above >32 mL/min NormalCLASSIFICATION CHOLESTEROL FOR ADULTS CHILDREN/ADOLESCENTS* DESIRABLE: <200 MG/DL <170 MG/DL BORDER-LINE HIGH RISK: 200-239 MG/DL 170-199 MG/DL HIGH RISK: >240 MG/DL >200 MG/DL CLASS. FOR PRIMARY LDL CHOL PREVENTION: LDL CHOL-CHILD/ADOLESCENTS* DESIRABLE: <130 MG/DL <110 MG/DL BORDERLINE-HIGH RISK: 130- 159 MG/DL 110-129 MG/DL HIGH RISK: >160 MG/DL >130 MG/DL *CHILDREN AND ADOLESCENTS REPRESENTS INDIVIDUALA AGED 2-19 YEARS EXCLUSIVE. MCHC 32.5 g/dL 31.0-36.0 [facility] ([facility] NORMAL RANGES Age WBC RBC HGB HCT MCV PLT Adult M 4.1-10.9 4.20-6.30 12.0-18.0 37.0-51.0 80-97 140-440 Adult F 4.1-10.9 4.04-5.48 12.0-18.0 37.0-51.0 80-97 140-440 0 -1 Yr 5.0-20.0 3.9-5.9 15-18 MV: 44 MV: 91 MV: 277 2-9 Yr. 6.0-17.0 3.8-5.4 11-13 MV: 37 MV: 78 MV: 300 10 Yrs. 5.0-13.0 3.8-5.4 12-15 MV: 39 MV: 80 MV: 250 NOTE: * FOR ADULT BLACK MALES AND FEMALES, NORMAL WBC IS 2.9-7.7 K/ML * FOR ADULT BLACK MALES AND FEMALES, NORMAL RBC,HGB, AND HCT IS 5% LESS SOURCE FOR DATA: 23press 1800 OPERATION MANUAL( AUTOMATED BLOOD COUNTS AND DIFF.) APPENDIX B-3 CHRONIC KIDNEY DISEASE STAGING PER NKF: MALE GFR INTERPRETATION: 20-49 YRS: >60 mL/min Normal 50-59 YRS: >56 mL/min Normal 60-69 YRS: >49 mL/min Normal 70-79 YRS: >42 mL/min Normal 80 and above >35 mL/min Normal FEMALE GRF INTERPRETATION: 20-39 YRS: >60 mL/min Normal 40-49 YRS: >58 mL/min Normal 50-59 YRS: >51 mL/min Normal 60-69 YRS: >45 mL/min Normal 70-79 YRS: >39 mL/min Normal 80 and above >32 mL/min NormalCLASSIFICATION CHOLESTEROL FOR ADULTS CHILDREN/ADOLESCENTS* DESIRABLE: <200 MG/DL <170 MG/DL BORDER-LINE HIGH RISK: 200-239 MG/DL 170-199 MG/DL HIGH RISK: >240 MG/DL >200 MG/DL CLASS. FOR PRIMARY LDL CHOL PREVENTION: LDL CHOL-CHILD/ADOLESCENTS* DESIRABLE: <130 MG/DL <110 MG/DL BORDERLINE-HIGH RISK: 130- 159 MG/DL 110-129 MG/DL HIGH RISK: >160 MG/DL >130 MG/DL *CHILDREN AND ADOLESCENTS REPRESENTS INDIVIDUALA AGED 2-19 YEARS EXCLUSIVE. PLT 373 10E3/uL 140-440 [facility] ([facility] NORMAL RANGES Age WBC RBC HGB HCT MCV PLT Adult M 4.1-10.9 4.20-6.30 12.0-18.0 37.0-51.0 80-97 140-440 Adult F 4.1-10.9 4.04-5.48 12.0-18.0 37.0-51.0 80-97 140-440 0 -1 Yr 5.0-20.0 3.9-5.9 15-18 MV: 44 MV: 91 MV: 277 2-9 Yr. 6.0-17.0 3.8-5.4 11-13 MV: 37 MV: 78 MV: 300 10 Yrs. 5.0-13.0 3.8-5.4 12-15 MV: 39 MV: 80 MV: 250 NOTE: * FOR ADULT BLACK MALES AND FEMALES, NORMAL WBC IS 2.9-7.7 K/ML * FOR ADULT BLACK MALES AND FEMALES, NORMAL RBC,HGB, AND HCT IS 5% LESS SOURCE FOR DATA: 23press 1800 OPERATION MANUAL( AUTOMATED BLOOD COUNTS AND DIFF.) APPENDIX B-3 CHRONIC KIDNEY DISEASE STAGING PER NKF: MALE GFR INTERPRETATION: 20-49 YRS: >60 mL/min Normal 50-59 YRS: >56 mL/min Normal 60-69 YRS: >49 mL/min Normal 70-79 YRS: >42 mL/min Normal 80 and above >35 mL/min Normal FEMALE GRF INTERPRETATION: 20-39 YRS: >60 mL/min Normal 40-49 YRS: >58 mL/min Normal 50-59 YRS: >51 mL/min Normal 60-69 YRS: >45 mL/min Normal 70-79 YRS: >39 mL/min Normal 80 and above >32 mL/min NormalCLASSIFICATION CHOLESTEROL FOR ADULTS CHILDREN/ADOLESCENTS* DESIRABLE: <200 MG/DL <170 MG/DL BORDER-LINE HIGH RISK: 200-239 MG/DL 170-199 MG/DL HIGH RISK: >240 MG/DL >200 MG/DL CLASS. FOR PRIMARY LDL CHOL PREVENTION: LDL CHOL-CHILD/ADOLESCENTS* DESIRABLE: <130 MG/DL <110 MG/DL BORDERLINE-HIGH RISK: 130- 159 MG/DL 110-129 MG/DL HIGH RISK: >160 MG/DL >130 MG/DL *CHILDREN AND ADOLESCENTS REPRESENTS INDIVIDUALA AGED 2-19 YEARS EXCLUSIVE. RDW-CV 15.7 % 11.5-14.5 Above high normal [facility] ([facility] NORMAL RANGES Age WBC RBC HGB HCT MCV PLT Adult M 4.1-10.9 4.20-6.30 12.0-18.0 37.0-51.0 80-97 140-440 Adult F 4.1-10.9 4.04-5.48 12.0-18.0 37.0-51.0 80-97 140-440 0 -1 Yr 5.0-20.0 3.9-5.9 15-18 MV: 44 MV: 91 MV: 277 2-9 Yr. 6.0-17.0 3.8-5.4 11-13 MV: 37 MV: 78 MV: 300 10 Yrs. 5.0-13.0 3.8-5.4 12-15 MV: 39 MV: 80 MV: 250 NOTE: * FOR ADULT BLACK MALES AND FEMALES, NORMAL WBC IS 2.9-7.7 K/ML * FOR ADULT BLACK MALES AND FEMALES, NORMAL RBC,HGB, AND HCT IS 5% LESS SOURCE FOR DATA: 23press 1800 OPERATION MANUAL( AUTOMATED BLOOD COUNTS AND DIFF.) APPENDIX B-3 CHRONIC KIDNEY DISEASE STAGING PER NKF: MALE GFR INTERPRETATION: 20-49 YRS: >60 mL/min Normal 50-59 YRS: >56 mL/min Normal 60-69 YRS: >49 mL/min Normal 70-79 YRS: >42 mL/min Normal 80 and above >35 mL/min Normal FEMALE GRF INTERPRETATION: 20-39 YRS: >60 mL/min Normal 40-49 YRS: >58 mL/min Normal 50-59 YRS: >51 mL/min Normal 60-69 YRS: >45 mL/min Normal 70-79 YRS: >39 mL/min Normal 80 and above >32 mL/min NormalCLASSIFICATION CHOLESTEROL FOR ADULTS CHILDREN/ADOLESCENTS* DESIRABLE: <200 MG/DL <170 MG/DL BORDER-LINE HIGH RISK: 200-239 MG/DL 170-199 MG/DL HIGH RISK: >240 MG/DL >200 MG/DL CLASS. FOR PRIMARY LDL CHOL PREVENTION: LDL CHOL-CHILD/ADOLESCENTS* DESIRABLE: <130 MG/DL <110 MG/DL BORDERLINE-HIGH RISK: 130- 159 MG/DL 110-129 MG/DL HIGH RISK: >160 MG/DL >130 MG/DL *CHILDREN AND ADOLESCENTS REPRESENTS INDIVIDUALA AGED 2-19 YEARS EXCLUSIVE. Lym% 23.6 % 10.0-58.5 [facility] NORMAL RANGES Age WBC RBC HGB HCT MCV PLT Adult M 4.1-10.9 4.20-6.30 12.0-18.0 37.0-51.0 80-97 140-440 Adult F 4.1-10.9 4.04-5.48 12.0-18.0 37.0-51.0 80-97 140-440 0 -1 Yr 5.0-20.0 3.9-5.9 15-18 MV: 44 MV: 91 MV: 277 2-9 Yr. 6.0-17.0 3.8-5.4 11-13 MV: 37 MV: 78 MV: 300 10 Yrs. 5.0-13.0 3.8-5.4 12-15 MV: 39 MV: 80 MV: 250 NOTE: * FOR ADULT BLACK MALES AND FEMALES, NORMAL WBC IS 2.9-7.7 K/ML * FOR ADULT BLACK MALES AND FEMALES, NORMAL RBC,HGB, AND HCT IS 5% LESS SOURCE FOR DATA: 23press 1800 OPERATION MANUAL( AUTOMATED BLOOD COUNTS AND DIFF.) APPENDIX B-3 CHRONIC KIDNEY DISEASE STAGING PER NKF: MALE GFR INTERPRETATION: 20-49 YRS: >60 mL/min Normal 50-59 YRS: >56 mL/min Normal 60-69 YRS: >49 mL/min Normal 70-79 YRS: >42 mL/min Normal 80 and above >35 mL/min Normal FEMALE GRF INTERPRETATION: 20-39 YRS: >60 mL/min Normal 40-49 YRS: >58 mL/min Normal 50-59 YRS: >51 mL/min Normal 60-69 YRS: >45 mL/min Normal 70-79 YRS: >39 mL/min Normal 80 and above >32 mL/min NormalCLASSIFICATION CHOLESTEROL FOR ADULTS CHILDREN/ADOLESCENTS* DESIRABLE: <200 MG/DL <170 MG/DL BORDER-LINE HIGH RISK: 200-239 MG/DL 170-199 MG/DL HIGH RISK: >240 MG/DL >200 MG/DL CLASS. FOR PRIMARY LDL CHOL PREVENTION: LDL CHOL-CHILD/ADOLESCENTS* DESIRABLE: <130 MG/DL <110 MG/DL BORDERLINE-HIGH RISK: 130- 159 MG/DL 110-129 MG/DL HIGH RISK: >160 MG/DL >130 MG/DL *CHILDREN AND ADOLESCENTS REPRESENTS INDIVIDUALA AGED 2-19 YEARS EXCLUSIVE. Neut% 70.4 % 37.0-92.0 [facility] ([facility] NORMAL RANGES Age WBC RBC HGB HCT MCV PLT Adult M 4.1-10.9 4.20-6.30 12.0-18.0 37.0-51.0 80-97 140-440 Adult F 4.1-10.9 4.04-5.48 12.0-18.0 37.0-51.0 80-97 140-440 0 -1 Yr 5.0-20.0 3.9-5.9 15-18 MV: 44 MV: 91 MV: 277 2-9 Yr. 6.0-17.0 3.8-5.4 11-13 MV: 37 MV: 78 MV: 300 10 Yrs. 5.0-13.0 3.8-5.4 12-15 MV: 39 MV: 80 MV: 250 NOTE: * FOR ADULT BLACK MALES AND FEMALES, NORMAL WBC IS 2.9-7.7 K/ML * FOR ADULT BLACK MALES AND FEMALES, NORMAL RBC,HGB, AND HCT IS 5% LESS SOURCE FOR DATA: 23press 1800 OPERATION MANUAL( AUTOMATED BLOOD COUNTS AND DIFF.) APPENDIX B-3 CHRONIC KIDNEY DISEASE STAGING PER NKF: MALE GFR INTERPRETATION: 20-49 YRS: >60 mL/min Normal 50-59 YRS: >56 mL/min Normal 60-69 YRS: >49 mL/min Normal 70-79 YRS: >42 mL/min Normal 80 and above >35 mL/min Normal FEMALE GRF INTERPRETATION: 20-39 YRS: >60 mL/min Normal 40-49 YRS: >58 mL/min Normal 50-59 YRS: >51 mL/min Normal 60-69 YRS: >45 mL/min Normal 70-79 YRS: >39 mL/min Normal 80 and above >32 mL/min NormalCLASSIFICATION CHOLESTEROL FOR ADULTS CHILDREN/ADOLESCENTS* DESIRABLE: <200 MG/DL <170 MG/DL BORDER-LINE HIGH RISK: 200-239 MG/DL 170-199 MG/DL HIGH RISK: >240 MG/DL >200 MG/DL CLASS. FOR PRIMARY LDL CHOL PREVENTION: LDL CHOL-CHILD/ADOLESCENTS* DESIRABLE: <130 MG/DL <110 MG/DL BORDERLINE-HIGH RISK: 130- 159 MG/DL 110-129 MG/DL HIGH RISK: >160 MG/DL >130 MG/DL *CHILDREN AND ADOLESCENTS REPRESENTS INDIVIDUALA AGED 2-19 YEARS EXCLUSIVE. MXD% 6.0 % 0.1-24.0 [facility] ([facility] NORMAL RANGES Age WBC RBC HGB HCT MCV PLT Adult M 4.1-10.9 4.20-6.30 12.0-18.0 37.0-51.0 80-97 140-440 Adult F 4.1-10.9 4.04-5.48 12.0-18.0 37.0-51.0 80-97 140-440 0 -1 Yr 5.0-20.0 3.9-5.9 15-18 MV: 44 MV: 91 MV: 277 2-9 Yr. 6.0-17.0 3.8-5.4 11-13 MV: 37 MV: 78 MV: 300 10 Yrs. 5.0-13.0 3.8-5.4 12-15 MV: 39 MV: 80 MV: 250 NOTE: * FOR ADULT BLACK MALES AND FEMALES, NORMAL WBC IS 2.9-7.7 K/ML * FOR ADULT BLACK MALES AND FEMALES, NORMAL RBC,HGB, AND HCT IS 5% LESS SOURCE FOR DATA: 23press 1800 OPERATION MANUAL( AUTOMATED BLOOD COUNTS AND DIFF.) APPENDIX B-3 CHRONIC KIDNEY DISEASE STAGING PER NKF: MALE GFR INTERPRETATION: 20-49 YRS: >60 mL/min Normal 50-59 YRS: >56 mL/min Normal 60-69 YRS: >49 mL/min Normal 70-79 YRS: >42 mL/min Normal 80 and above >35 mL/min Normal FEMALE GRF INTERPRETATION: 20-39 YRS: >60 mL/min Normal 40-49 YRS: >58 mL/min Normal 50-59 YRS: >51 mL/min Normal 60-69 YRS: >45 mL/min Normal 70-79 YRS: >39 mL/min Normal 80 and above >32 mL/min NormalCLASSIFICATION CHOLESTEROL FOR ADULTS CHILDREN/ADOLESCENTS* DESIRABLE: <200 MG/DL <170 MG/DL BORDER-LINE HIGH RISK: 200-239 MG/DL 170-199 MG/DL HIGH RISK: >240 MG/DL >200 MG/DL CLASS. FOR PRIMARY LDL CHOL PREVENTION: LDL CHOL-CHILD/ADOLESCENTS* DESIRABLE: <130 MG/DL <110 MG/DL BORDERLINE-HIGH RISK: 130- 159 MG/DL 110-129 MG/DL HIGH RISK: >160 MG/DL >130 MG/DL *CHILDREN AND ADOLESCENTS REPRESENTS INDIVIDUALA AGED 2-19 YEARS EXCLUSIVE. Lym# 3.2 10E3/uL 0.6-4.1 [facility] ([facility] NORMAL RANGES Age WBC RBC HGB HCT MCV PLT Adult M 4.1-10.9 4.20-6.30 12.0-18.0 37.0-51.0 80-97 140-440 Adult F 4.1-10.9 4.04-5.48 12.0-18.0 37.0-51.0 80-97 140-440 0 -1 Yr 5.0-20.0 3.9-5.9 15-18 MV: 44 MV: 91 MV: 277 2-9 Yr. 6.0-17.0 3.8-5.4 11-13 MV: 37 MV: 78 MV: 300 10 Yrs. 5.0-13.0 3.8-5.4 12-15 MV: 39 MV: 80 MV: 250 NOTE: * FOR ADULT BLACK MALES AND FEMALES, NORMAL WBC IS 2.9-7.7 K/ML * FOR ADULT BLACK MALES AND FEMALES, NORMAL RBC,HGB, AND HCT IS 5% LESS SOURCE FOR DATA: [employer] DYN 1800 OPERATION MANUAL( AUTOMATED BLOOD COUNTS AND DIFF.) APPENDIX B-3 CHRONIC KIDNEY DISEASE STAGING PER NKF: MALE GFR INTERPRETATION: 20-49 YRS: >60 mL/min Normal 50-59 YRS: >56 mL/min Normal 60-69 YRS: >49 mL/min Normal 70-79 YRS: >42 mL/min Normal 80 and above >35 mL/min Normal FEMALE GRF INTERPRETATION: 20-39 YRS: >60 mL/min Normal 40-49 YRS: >58 mL/min Normal 50-59 YRS: >51 mL/min Normal 60-69 YRS: >45 mL/min Normal 70-79 YRS: >39 mL/min Normal 80 and above >32 mL/min NormalCLASSIFICATION CHOLESTEROL FOR ADULTS CHILDREN/ADOLESCENTS* DESIRABLE: <200 MG/DL <170 MG/DL BORDER-LINE HIGH RISK: 200-239 MG/DL 170-199 MG/DL HIGH RISK: >240 MG/DL >200 MG/DL CLASS. FOR PRIMARY LDL CHOL PREVENTION: LDL CHOL-CHILD/ADOLESCENTS* DESIRABLE: <130 MG/DL <110 MG/DL BORDERLINE-HIGH RISK: 130- 159 MG/DL 110-129 MG/DL HIGH RISK: >160 MG/DL >130 MG/DL *CHILDREN AND ADOLESCENTS REPRESENTS INDIVIDUALA AGED 2-19 YEARS EXCLUSIVE. Neut# 9.4 % 2.0-7.8 Above high normal [facility] ([facility] NORMAL RANGES Age WBC RBC HGB HCT MCV PLT Adult M 4.1-10.9 4.20-6.30 12.0-18.0 37.0-51.0 80-97 140-440 Adult F 4.1-10.9 4.04-5.48 12.0-18.0 37.0-51.0 80-97 140-440 0 -1 Yr 5.0-20.0 3.9-5.9 15-18 MV: 44 MV: 91 MV: 277 2-9 Yr. 6.0-17.0 3.8-5.4 11-13 MV: 37 MV: 78 MV: 300 10 Yrs. 5.0-13.0 3.8-5.4 12-15 MV: 39 MV: 80 MV: 250 NOTE: * FOR ADULT BLACK MALES AND FEMALES, NORMAL WBC IS 2.9-7.7 K/ML * FOR ADULT BLACK MALES AND FEMALES, NORMAL RBC,HGB, AND HCT IS 5% LESS SOURCE FOR DATA: 23press 1800 OPERATION MANUAL( AUTOMATED BLOOD COUNTS AND DIFF.) APPENDIX B-3 CHRONIC KIDNEY DISEASE STAGING PER NKF: MALE GFR INTERPRETATION: 20-49 YRS: >60 mL/min Normal 50-59 YRS: >56 mL/min Normal 60-69 YRS: >49 mL/min Normal 70-79 YRS: >42 mL/min Normal 80 and above >35 mL/min Normal FEMALE GRF INTERPRETATION: 20-39 YRS: >60 mL/min Normal 40-49 YRS: >58 mL/min Normal 50-59 YRS: >51 mL/min Normal 60-69 YRS: >45 mL/min Normal 70-79 YRS: >39 mL/min Normal 80 and above >32 mL/min NormalCLASSIFICATION CHOLESTEROL FOR ADULTS CHILDREN/ADOLESCENTS* DESIRABLE: <200 MG/DL <170 MG/DL BORDER-LINE HIGH RISK: 200-239 MG/DL 170-199 MG/DL HIGH RISK: >240 MG/DL >200 MG/DL CLASS. FOR PRIMARY LDL CHOL PREVENTION: LDL CHOL-CHILD/ADOLESCENTS* DESIRABLE: <130 MG/DL <110 MG/DL BORDERLINE-HIGH RISK: 130- 159 MG/DL 110-129 MG/DL HIGH RISK: >160 MG/DL >130 MG/DL *CHILDREN AND ADOLESCENTS REPRESENTS INDIVIDUALA AGED 2-19 YEARS EXCLUSIVE. MXD# 0.8 10E3/uL 0.0-1.8 [facility] ([facility] NORMAL RANGES Age WBC RBC HGB HCT MCV PLT Adult M 4.1-10.9 4.20-6.30 12.0-18.0 37.0-51.0 80-97 140-440 Adult F 4.1-10.9 4.04-5.48 12.0-18.0 37.0-51.0 80-97 140-440 0 -1 Yr 5.0-20.0 3.9-5.9 15-18 MV: 44 MV: 91 MV: 277 2-9 Yr. 6.0-17.0 3.8-5.4 11-13 MV: 37 MV: 78 MV: 300 10 Yrs. 5.0-13.0 3.8-5.4 12-15 MV: 39 MV: 80 MV: 250 NOTE: * FOR ADULT BLACK MALES AND FEMALES, NORMAL WBC IS 2.9-7.7 K/ML * FOR ADULT BLACK MALES AND FEMALES, NORMAL RBC,HGB, AND HCT IS 5% LESS SOURCE FOR DATA: 23press 1800 OPERATION MANUAL( AUTOMATED BLOOD COUNTS AND DIFF.) APPENDIX B-3 CHRONIC KIDNEY DISEASE STAGING PER NKF: MALE GFR INTERPRETATION: 20-49 YRS: >60 mL/min Normal 50-59 YRS: >56 mL/min Normal 60-69 YRS: >49 mL/min Normal 70-79 YRS: >42 mL/min Normal 80 and above >35 mL/min Normal FEMALE GRF INTERPRETATION: 20-39 YRS: >60 mL/min Normal 40-49 YRS: >58 mL/min Normal 50-59 YRS: >51 mL/min Normal 60-69 YRS: >45 mL/min Normal 70-79 YRS: >39 mL/min Normal 80 and above >32 mL/min NormalCLASSIFICATION CHOLESTEROL FOR ADULTS CHILDREN/ADOLESCENTS* DESIRABLE: <200 MG/DL <170 MG/DL BORDER-LINE HIGH RISK: 200-239 MG/DL 170-199 MG/DL HIGH RISK: >240 MG/DL >200 MG/DL CLASS. FOR PRIMARY LDL CHOL PREVENTION: LDL CHOL-CHILD/ADOLESCENTS* DESIRABLE: <130 MG/DL <110 MG/DL BORDERLINE-HIGH RISK: 130- 159 MG/DL 110-129 MG/DL HIGH RISK: >160 MG/DL >130 MG/DL *CHILDREN AND ADOLESCENTS REPRESENTS INDIVIDUALA AGED 2-19 YEARS EXCLUSIVE. MPV 11.5 fL 9.0-13.0 [facility] NORMAL RANGES Age WBC RBC HGB HCT MCV PLT Adult M 4.1-10.9 4.20-6.30 12.0-18.0 37.0-51.0 80-97 140-440 Adult F 4.1-10.9 4.04-5.48 12.0-18.0 37.0-51.0 80-97 140-440 0 -1 Yr 5.0-20.0 3.9-5.9 15-18 MV: 44 MV: 91 MV: 277 2-9 Yr. 6.0-17.0 3.8-5.4 11-13 MV: 37 MV: 78 MV: 300 10 Yrs. 5.0-13.0 3.8-5.4 12-15 MV: 39 MV: 80 MV: 250 NOTE: * FOR ADULT BLACK MALES AND FEMALES, NORMAL WBC IS 2.9-7.7 K/ML * FOR ADULT BLACK MALES AND FEMALES, NORMAL RBC,HGB, AND HCT IS 5% LESS SOURCE FOR DATA: [employer] DYN 1800 OPERATION MANUAL( AUTOMATED BLOOD COUNTS AND DIFF.) APPENDIX B-3 CHRONIC KIDNEY DISEASE STAGING PER NKF: MALE GFR INTERPRETATION: 20-49 YRS: >60 mL/min Normal 50-59 YRS: >56 mL/min Normal 60-69 YRS: >49 mL/min Normal 70-79 YRS: >42 mL/min Normal 80 and above >35 mL/min Normal FEMALE GRF INTERPRETATION: 20-39 YRS: >60 mL/min Normal 40-49 YRS: >58 mL/min Normal 50-59 YRS: >51 mL/min Normal 60-69 YRS: >45 mL/min Normal 70-79 YRS: >39 mL/min Normal 80 and above >32 mL/min NormalCLASSIFICATION CHOLESTEROL FOR ADULTS CHILDREN/ADOLESCENTS* DESIRABLE: <200 MG/DL <170 MG/DL BORDER-LINE HIGH RISK: 200-239 MG/DL 170-199 MG/DL HIGH RISK: >240 MG/DL >200 MG/DL CLASS. FOR PRIMARY LDL CHOL PREVENTION: LDL CHOL-CHILD/ADOLESCENTS* DESIRABLE: <130 MG/DL <110 MG/DL BORDERLINE-HIGH RISK: 130- 159 MG/DL 110-129 MG/DL HIGH RISK: >160 MG/DL >130 MG/DL *CHILDREN AND ADOLESCENTS REPRESENTS INDIVIDUALA AGED 2-19 YEARS EXCLUSIVE. ID Date Data Source [id number] 04/25/2020 08:33:00 AM EST [facility] ([facility]) Name Value Range Interpretation Code Description Data Haylee rce(s) Supporting Document(s) Glucose 72 [facility] ([facility]) Creatinine 1.8 [facility] ([facility]) Blood Urea Nitrogen 40.6 [facility] ([facility]) Glomerular filtration rate/1.73 sq M.pre dicted [Volume Rate/Area] in Serum or Plasma by Creatinine-based formula (MDRD) 28 [facility] ([facility]) Potassium 4.25 [facility] ([facility]) Sodium 140.7 [facility] ([facility]) Carbon Dioxide 28.8 [facility] ([facility] Chloride 103.8 [facility] Phosphorus 4.8 [facility] ([facility]) Calcium 8.7 [facility] Albumin 3.5 [facility] ID Date Data Source [id number] 04/25/2020 08:33:00 AM EST [facility] ([facility]) Name Value Range Interpretation Code Description Data Haylee rce(s) Supporting Document(s) Red Blood Count 3.67 [facility] White Blood Count 11.7 [facility] ([facility]) Platelets 343 [facility] [place] Hemoglobin 11.7 [facility] ([facility]) Hematocrit 37.2 [facility] ([facility]) ID Date Data Source [id number] 04/25/2020 08:33:00 AM EST [facility] ([facility]) Name Value Range Interpretation Code Description Data Haylee rce(s) Supporting Document(s) Uric Acid 4.5 [facility] ([facility] [place] ID Date Data Source [id number] 04/11/2020 02:11:00 PM EST [facility] ([facility] Name Value Range Interpretation Code Description Data Haylee rce(s) Supporting Document(s) RBC Folate 986 ng/mL 280-791 Above high normal [facility] ([facility] Hematocrit 38.3 % 36.0-47.0 Normal (applies to non-numeric resul ts) [facility] ([facility] ID Date Data Source [id number] 04/11/2020 02:11:00 PM EST [facility] ([facility] Name Value Range Interpretation Code Description Data Haylee rce(s) Supporting Document(s) Cobalamin (Vitamin B12) [Mass/volume] in Serum or Plasma 1886 pg /mL 247-911 Above high normal [facility] ([facility] ) VITAMIN B12 NORMAL RANGE NORMAL 247 - 911 PG/ML INDETERMINATE 211 - 246 PG/ML DEFICIENT LESS THAN 211 PG/ML Calcidiol [Mass/volume] in Serum or Plasma 36.8 ng/mL 30.0- 100.0 Normal (applies to non-numeric results) [facility] ([facility] Ferritin [Mass/volume] in Serum or Plasma 16 ng/mL 8-252 Normal (applies to non- numeric results) [facility] ([facility] ID Date Data Source [id number] 04/11/2020 02:11:00 PM EST [facility] ([facility] Name Value Range Interpretation Code Description Data Haylee rce(s) Supporting Document(s) Total Iron Binding Capacity 379 ug/dL 250-450 Norm al (applies to non-numeric results) [facility] ([facility] Iron (Fe) 167 ug/dL 50-170 Normal (applies to non-numeric resul ts) [facility] ([facility] Percent Saturation 44.1 % 13.2-45.0 Normal (applies to non-numer ic results) [facility] ([facility] ID Date Data Source [id number] 04/11/2020 02:11:00 PM EST [facility] ([facility] Name Value Range Interpretation Code Description Data Haylee rce(s) Supporting Document(s) Phosphate [Moles/volume] in Serum or Plasma 5.2 mg/dL 2.5-4.9 Above high normal [facility] ([facility] Magnesium [Mass/volume] in Serum or Plasma 2.3 mg/dL 1.8-2 .4 Normal (applies to non-numeric results) [facility] ([facility]) ID Date Data Source [id number] 04/11/2020 02:11:00 PM EST [facility] ([facility] Name Value Range Interpretation Code Description Data Haylee rce(s) Supporting Document(s) Glucose, Fasting 101 mg/dL 70-100 Above high normal [facility] ([facility] Blood Urea Nitrogen 51 mg/dL 7-18 Above high normal [facility] ([facility] Creatinine For GFR 2.41 mg/dL 0.55-1.30 Above high normal [facility] ([facility] Sodium Level 139 meq/L 136-145 Normal (applies to non-numeric res ults) [facility] ([facility] Glomerular Filtration Rate 21.2 Below low normal [facility] ([facility] <content>Units are mL/min/1.73 m2</content>
<content></content>
<content>Chronic Kidney Disease Staging per NKF:</content>
<content></content>
<content>Stage I & II GFR >=60 Normal to Mildly Decreased</content>
<content>Stage III GFR 30- 59 Moderately Decreased</content>
<content>Stage IV GFR 15-29 Severely Decreased</content>
<content>Stage V GFR <15 Very Little GFR Left</content>
<content>ESRD GFR <15 on DOLL REPAIRER</content>
<content></content> Chloride Level 106 meq/L 98-107 Normal (applies to non-numeric r esults) [facility] ([facility] Potassium Serum 5.2 meq/L 3.5-5.1 Above high normal [facility] ([facility] Carbon Dioxide Level 28 meq/L 21-32 Normal (applies to non-num pricila results) [facility] ([facility] Anion Gap 5 meq/L 8-16 Below low normal [facility] ( [facility] Ast/Sgot 15 U/L 7-37 Normal (applies to non-numeric resul ts) [facility] ([facility] Calcium Level 9.0 mg/dL 8.8-10.2 Normal (applies to non-numeric re sults) [facility] ([facility] Alkaline Phosphatase 104 U/L 45-117 Normal (applies to non-num pricila results) [facility] ([facility] Alt/SGPT 25 U/L 12-78 Normal (applies to non-numeric resul ts) [facility] ([facility] Bilirubin,Total 0.2 mg/dL 0.2-1.0 Normal (applies to non-numeric results) [facility] ([facility] Total Protein 6.4 GM/DL 6.4-8.2 Normal (applies to non-numeric re sults) [facility] ([facility] Albumin 3.3 GM/DL 3.2-5.2 Normal (applies to non-numeric resul ts) [facility] ([facility] Albumin/Globulin Ratio 1.1 1.2-2.2 Below low normal [facility] ([facility] ID Date Data Source [id number] 04/11/2020 02:11:00 PM EST [facility] ([facility] Name Value Range Interpretation Code Description Data Haylee rce(s) Supporting Document(s) Hemoglobin A1c 6.5 % Normal (applies to non-numeric r esults) [facility] ([facility] <content>REFERENCE RANGES:</content><br/ ><content></content>
<content><=5.6% NORMAL</content>
<content>5.7-6.4% SUGGESTS IMPAIRED GLUCOSE METABOLISM/PREDIABETIC</content>
<content>>= 6.5% ABNORMAL</content>
<content></content> Estimated Average Glucose 140 mg/dL 60-110 Above high normal [facility] ([facility] ID Date Data Source [id number] 04/11/2020 02:11:00 PM EST [facility] ([facility] Name Value Range Interpretation Code Description Data Haylee rce(s) Supporting Document(s) White Blood Count 13.9 10 4.0-10.0 Above high normal [facility] ([facility] Red Blood Count 3.78 10 4.00-5.40 Below low normal [facility] ([facility] Hemoglobin 11.8 g/dL 12.0-15.5 Below low normal [facility] ( [facility] Mean Corpuscular Volume 101.3 fl 80.0-96.0 Above high normal [facility] ([facility] Hematocrit 38.3 % 36.0-47.0 Normal (applies to non-numeric resul ts) [facility] ([facility] Mean Corpuscular HGB Conc 30.8 g/dL 32.0-36.5 Below low normal [facility] ([facility] Mean Corpuscular Hemoglobin 31.2 pg 27.0-33.0 Norm al (applies to non-numeric results) [facility] ([facility] ) Red Cell Distribution Width 15.6 % 11.5-14.5 Above high normal [facility] ([facility] Platelet Count, Automated 368 10 150-450 Normal (applies to non-numeric results) [facility] ([facility] Lymph % 18.1 % 24.0-44.0 Below low normal [facility] ( [facility] Neutrophils % 73.7 % 36.0-66.0 Above high normal [facility] ([facility] Eos % 2.1 % 0.0-3.0 Normal (applies to non-numeric resul ts) [facility] ([facility] [place] % 5.0 % 0.0-5.0 Normal (applies to non-numeric resul ts) [facility] ([facility] Baso % 0.6 % 0.0-1.0 Normal (applies to non-numeric resul ts) [facility] ([facility] Immature Granulocyte % 0.5 % 0-3.0 Normal (applies to non-n umeric results) [facility] ([facility] Neutrophils # 10.2 10 1.5-8.5 Above high normal [facility] ([facility] Lymph # 2.5 10 1.5-5.0 Normal (applies to non-numeric resul ts) [facility] ([facility] Nucleated Red Blood Cell % 0.0 % 0-0 Normal (applies to n on-numeric results) [facility] ([facility] Eos # 0.3 10 0.0-0.5 Normal (applies to non-numeric resul ts) [facility] ([facility] [place] # 0.7 10 0.0-0.8 Normal (applies to non-numeric resul ts) [facility] ([facility] Baso # 0.1 10 0.0-0.2 Normal (applies to non-numeric resul ts) [facility] ([facility] ID Date Data Source [id number] 04/01/2020 08:00:00 AM EST [facility] Name Value Range Interpretation Code Description Data Haylee rce(s) Supporting Document(s) SARS coronavirus 2 RNA [facility] This lab was ordered by [facility] and reported by [facility]. ID Date Data Source [id number] 03/28/2020 09:04:00 AM EST [facility] ([facility]) Name Value Range Interpretation Code Description Data Haylee rce(s) Supporting Document(s) Carotid Ultrasound Bilateral Laboratory test result [facility] ([facility]) ID Date Data Source [id number] 03/21/2020 06:23:00 PM EDT [facility] ([facility]) Name Value Range Interpretation Code Description Data Haylee rce(s) Supporting Document(s) Blood Urea Nitrogen 36.0 [facility] ([facility]) Glucose 99 [facility] ([facility]) Creatinine 1.6 [facility] ([facility]) Glomerular filtration rate/1.73 sq M.pre dicted [Volume Rate/Area] in Serum or Plasma by Creatinine-based formula (MDRD) 32 [facility] ([facility]) Sodium 135.9 [facility] ([facility]) Carbon Dioxide 28.4 [facility] ([facility]) Potassium 5.45 [facility] Chloride 97.3 [facility] Albumin 3.4 [facility] Calcium 8.2 [facility] Phosphorus 4.1 [facility] ([facility]) ID Date Data Source [id number] 03/21/2020 06:23:00 PM EDT [facility] ([facility]) Name Value Range Interpretation Code Description Data Haylee rce(s) Supporting Document(s) White Blood Count 11.8 [facility] ([facility]) Hematocrit 33.7 [facility] ([facility]) Platelets 335 [facility] ([facility] Red Blood Count 3.37 [facility] ([facility] [place]) Hemoglobin 10.5 [facility] ([facility] [place]) ID Date Data Source [id number] 03/21/2020 06:23:00 PM EDT [facility] ([facility]) Name Value Range Interpretation Code Description Data Haylee rce(s) Supporting Document(s) Uric Acid 4.2 [facility] ([facility]) ID Date Data Source [id number] 03/10/2020 12:00:00 AM EDT [facility] Odessa Rosas MD Patient Name: ABDIRAHMAN YIP[address] [place] [address] Date of : [address] [address] Date of Exam: 03/10/2020PH#: Fax: [phone] EXAM: MAMMO SCREENING WITH CADCLINICAL INFORMATION: Screening.Based on the personal and family history information your patient suppliedat the time of imaging, her lifetime risk of breast cancer estimated by theTyrer-Cuzick model is 9.3%. Given that this patient has less than 20% TCrisk score, no further medical management is currently recommended at thistime.Your patient's personal and/or family history of cancer submitted at thetime of imaging is suggestive of a hereditary cancer syndrome. She meetsthe criteria for genetic testing established by National ComprehensiveCancer Network and [place] [employer] guidelines. She should pursue arisk assessment with a hereditary cancer specialist which may includetesting based on these criteria. The benefits and limitations of genetictesting would be discussed, including potential changes to medicalmanagement based on the results. Your patient declined myRisk genetictesting at this time.Digital screening (2D) mammography was performed bilaterally in the CC andMLO projections. Additionally, breast tomosynthesis (3D mammography) wasperformed bilaterally in the CC and MLO projections. Today's exam wascompared to the prior exam(s).By history, the patient has no complaints of a palpable breast abnormalityor other significant breast complaints.The patient states last clinical breast exam was in January of 2020.The breasts are unchanged in size and shape. There are no rosy-soft tissuedensities or spiculated masses. There is no internal architecturaldistortion. There are no suspicious rosy-calcific clusters. Skinthickening or nipple retraction is not present. Benign calcifications areagain seen scattered about both breasts.The Volpara volumetric breast density category is B, there are scatteredareas of fibroglandular density.IMPRESSION:BI-RADS Category 2 - Benign Finding(s). Stable mammogram. There is noevidence of malignant alteration of the breasts. Followup examinationrecommended in one year.This mammogram was read with the assistance of Monitise, an FDAapproved computer aided detection system for mammography.Negative x-ray reports should not delay surgical consultation if a dominantor clinically suspicious mass is present.Not all breast cancers can be identified by mammography. Therefore, werecommend that you continue to perform regular breast self-examination andphysical examination and then promptly contact your physician of anyconcerns or changes.Adenosis and dense breasts may obscure an underlying neoplasm.ANA Eastman/Rebeca you for referring ABDIRAHMAN YIP to our office. Electronically Signed - FRANCESCA DELUNA DO 03/13/20 9:37 Name Value Range Interpretation Code Description Data Haylee rce(s) Supporting Document(s) ID Date Data Source [id number] 02/14/2020 08:06:00 AM EDT [facility]) Name Value Range Interpretation Code Description Data Haylee rce(s) Supporting Document(s) White Blood Count 10.9 [facility] ([facility]) Red Blood Count 3.60 [facility] ([facility]) Hemoglobin 10.8 [facility] ([facility] [place]) Platelets 319 [facility] [place] Hematocrit 35.3 [facility] ([facility] [place]) ID Date Data Source [id number] 02/14/2020 08:06:00 AM EDT [facility] ([facility]) Name Value Range Interpretation Code Description Data Haylee rce(s) Supporting Document(s) Uric Acid 4.3 [facility] ([facility] [place] ID Date Data Source [id number] 02/14/2020 08:06:00 AM EDT [facility] ([facility]) Name Value Range Interpretation Code Description Data Haylee rce(s) Supporting Document(s) Glucose 104 [facility] ([facility] [place] Creatinine 2.3 [facility] ([facility] [place]) Blood Urea Nitrogen 40.5 [facility] ([facility]) Glomerular filtration rate/1.73 sq M.pre dicted [Volume Rate/Area] in Serum or Plasma by Creatinine-based formula (MDRD) 21 [facility] ([facility] [place]) Potassium 4.47 [facility] [place] Sodium 137.2 [facility] [place] Chloride 99.6 [facility] ([facility] [place] Carbon Dioxide 26.6 [facility] ([facility]) Calcium 8.7 [facility] ([facility] [place] Phosphorus 4.6 [facility] ([facility] [place]) Albumin 3.6 [facility] ([facility] [place] ID Date Data Source [id number] 02/10/2020 04:06:00 PM EDT [facility] ([facility] Name Value Range Interpretation Code Description Data Haylee rce(s) Supporting Document(s) WBC 12.2 10E3/uL 4.1-10.9 Above high normal [facility] T ([facility] NORMAL RANGES Age WBC RBC HGB HCT MCV PLT Adult M 4.1-10.9 4.20-6.30 12.0-18.0 37.0-51.0 80-97 140-440 Adult F 4.1-10.9 4.04-5.48 12.0-18.0 37.0-51.0 80-97 140-440 0 -1 Yr 5.0-20.0 3.9-5.9 15-18 MV: 44 MV: 91 MV: 277 2-9 Yr. 6.0-17.0 3.8-5.4 11-13 MV: 37 MV: 78 MV: 300 10 Yrs. 5.0-13.0 3.8-5.4 12-15 MV: 39 MV: 80 MV: 250 NOTE: * FOR ADULT BLACK MALES AND FEMALES, NORMAL WBC IS 2.9-7.7 K/ML * FOR ADULT BLACK MALES AND FEMALES, NORMAL RBC,HGB, AND HCT IS 5% LESS SOURCE FOR DATA: 23press 1800 OPERATION MANUAL( AUTOMATED BLOOD COUNTS AND DIFF.) APPENDIX B-3 RBC 3.69 10E6/uL 4.20-6.30 Below low normal [facility] ([facility] NORMAL RANGES Age WBC RBC HGB HCT MCV PLT Adult M 4.1-10.9 4.20-6.30 12.0-18.0 37.0-51.0 80-97 140-440 Adult F 4.1-10.9 4.04-5.48 12.0-18.0 37.0-51.0 80-97 140-440 0 -1 Yr 5.0-20.0 3.9-5.9 15-18 MV: 44 MV: 91 MV: 277 2-9 Yr. 6.0-17.0 3.8-5.4 11-13 MV: 37 MV: 78 MV: 300 10 Yrs. 5.0-13.0 3.8-5.4 12-15 MV: 39 MV: 80 MV: 250 NOTE: * FOR ADULT BLACK MALES AND FEMALES, NORMAL WBC IS 2.9-7.7 K/ML * FOR ADULT BLACK MALES AND FEMALES, NORMAL RBC,HGB, AND HCT IS 5% LESS SOURCE FOR DATA: 23press 1800 OPERATION MANUAL( AUTOMATED BLOOD COUNTS AND DIFF.) APPENDIX B-3 HCT 35.8 % 37.0-51.0 Below low normal [facility] ( [facility] NORMAL RANGES Age WBC RBC HGB HCT MCV PLT Adult M 4.1-10.9 4.20-6.30 12.0-18.0 37.0-51.0 80-97 140-440 Adult F 4.1-10.9 4.04-5.48 12.0-18.0 37.0-51.0 80-97 140-440 0 -1 Yr 5.0-20.0 3.9-5.9 15-18 MV: 44 MV: 91 MV: 277 2-9 Yr. 6.0-17.0 3.8-5.4 11-13 MV: 37 MV: 78 MV: 300 10 Yrs. 5.0-13.0 3.8-5.4 12-15 MV: 39 MV: 80 MV: 250 NOTE: * FOR ADULT BLACK MALES AND FEMALES, NORMAL WBC IS 2.9-7.7 K/ML * FOR ADULT BLACK MALES AND FEMALES, NORMAL RBC,HGB, AND HCT IS 5% LESS SOURCE FOR DATA: 23press 1800 OPERATION MANUAL( AUTOMATED BLOOD COUNTS AND DIFF.) APPENDIX B-3 HGB 11.5 g/dL 12.0-18.0 Below low normal [facility] ( [facility] NORMAL RANGES Age WBC RBC HGB HCT MCV PLT Adult M 4.1-10.9 4.20-6.30 12.0-18.0 37.0-51.0 80-97 140-440 Adult F 4.1-10.9 4.04-5.48 12.0-18.0 37.0-51.0 80-97 140-440 0 -1 Yr 5.0-20.0 3.9-5.9 15-18 MV: 44 MV: 91 MV: 277 2-9 Yr. 6.0-17.0 3.8-5.4 11-13 MV: 37 MV: 78 MV: 300 10 Yrs. 5.0-13.0 3.8-5.4 12-15 MV: 39 MV: 80 MV: 250 NOTE: * FOR ADULT BLACK MALES AND FEMALES, NORMAL WBC IS 2.9-7.7 K/ML * FOR ADULT BLACK MALES AND FEMALES, NORMAL RBC,HGB, AND HCT IS 5% LESS SOURCE FOR DATA: GAGAN DYN 1800 OPERATION MANUAL( AUTOMATED BLOOD COUNTS AND DIFF.) APPENDIX B-3 MCHC 32.1 g/dL 31.0-36.0 [facility] ([facility] NORMAL RANGES Age WBC RBC HGB HCT MCV PLT Adult M 4.1-10.9 4.20-6.30 12.0-18.0 37.0-51.0 80-97 140-440 Adult F 4.1-10.9 4.04-5.48 12.0-18.0 37.0-51.0 80-97 140-440 0 -1 Yr 5.0-20.0 3.9-5.9 15-18 MV: 44 MV: 91 MV: 277 2-9 Yr. 6.0-17.0 3.8-5.4 11-13 MV: 37 MV: 78 MV: 300 10 Yrs. 5.0-13.0 3.8-5.4 12-15 MV: 39 MV: 80 MV: 250 NOTE: * FOR ADULT BLACK MALES AND FEMALES, NORMAL WBC IS 2.9-7.7 K/ML * FOR ADULT BLACK MALES AND FEMALES, NORMAL RBC,HGB, AND HCT IS 5% LESS SOURCE FOR DATA: GAGAN DYN 1800 OPERATION MANUAL( AUTOMATED BLOOD COUNTS AND DIFF.) APPENDIX B-3 MCH 31.2 pg 26.0-32.0 [facility] ([facility] NORMAL RANGES Age WBC RBC HGB HCT MCV PLT Adult M 4.1-10.9 4.20-6.30 12.0-18.0 37.0-51.0 80-97 140-440 Adult F 4.1-10.9 4.04-5.48 12.0-18.0 37.0-51.0 80-97 140-440 0 -1 Yr 5.0-20.0 3.9-5.9 15-18 MV: 44 MV: 91 MV: 277 2-9 Yr. 6.0-17.0 3.8-5.4 11-13 MV: 37 MV: 78 MV: 300 10 Yrs. 5.0-13.0 3.8-5.4 12-15 MV: 39 MV: 80 MV: 250 NOTE: * FOR ADULT BLACK MALES AND FEMALES, NORMAL WBC IS 2.9-7.7 K/ML * FOR ADULT BLACK MALES AND FEMALES, NORMAL RBC,HGB, AND HCT IS 5% LESS SOURCE FOR DATA: 23press 1800 OPERATION MANUAL( AUTOMATED BLOOD COUNTS AND DIFF.) APPENDIX B-3 MCV 97.0 fL 80.0-97.0 [facility] ([facility] NORMAL RANGES Age WBC RBC HGB HCT MCV PLT Adult M 4.1-10.9 4.20-6.30 12.0-18.0 37.0-51.0 80-97 140-440 Adult F 4.1-10.9 4.04-5.48 12.0-18.0 37.0-51.0 80-97 140-440 0 -1 Yr 5.0-20.0 3.9-5.9 15-18 MV: 44 MV: 91 MV: 277 2-9 Yr. 6.0-17.0 3.8-5.4 11-13 MV: 37 MV: 78 MV: 300 10 Yrs. 5.0-13.0 3.8-5.4 12-15 MV: 39 MV: 80 MV: 250 NOTE: * FOR ADULT BLACK MALES AND FEMALES, NORMAL WBC IS 2.9-7.7 K/ML * FOR ADULT BLACK MALES AND FEMALES, NORMAL RBC,HGB, AND HCT IS 5% LESS SOURCE FOR DATA: 23press 1800 OPERATION MANUAL( AUTOMATED BLOOD COUNTS AND DIFF.) APPENDIX B-3 PLT 384 10E3/uL 140-440 [facility] ([facility] NORMAL RANGES Age WBC RBC HGB HCT MCV PLT Adult M 4.1-10.9 4.20-6.30 12.0-18.0 37.0-51.0 80 140-440 Adult F 4.1-10.9 4.04-5.48 12.0-18.0 37.0-51.0 140-440 0 -1 Yr 5.0-20.0 3.9-5.9 15-18 MV: 44 MV: 91 MV: 277 2-9 Yr. 6.0-17.0 3.8-5.4 11-13 MV: 37 MV: 78 MV: 300 10 Yrs. 5.0-13.0 3.8-5.4 12-15 MV: 39 MV: 80 MV: 250 NOTE: * FOR ADULT BLACK MALES AND FEMALES, NORMAL WBC IS 2.9-7.7 K/ML * FOR ADULT BLACK MALES AND FEMALES, NORMAL RBC,HGB, AND HCT IS 5% LESS SOURCE FOR DATA: 23press 1800 OPERATION MANUAL( AUTOMATED BLOOD COUNTS AND DIFF.) APPENDIX B-3 RDW-CV 18.0 % 11.5-14.5 Above high normal [facility] ([facility] NORMAL RANGES Age WBC RBC HGB HCT MCV PLT Adult M 4.1-10.9 4.20-6.30 12.0-18.0 37.0-51.0 80 140-440 Adult F 4.1-10.9 4.04-5.48 12.0-18.0 37.0-51.0 80- 140-440 0 -1 Yr 5.0-20.0 3.9-5.9 15-18 MV: 44 MV: 91 MV: 277 2-9 Yr. 6.0-17.0 3.8-5.4 11-13 MV: 37 MV: 78 MV: 300 10 Yrs. 5.0-13.0 3.8-5.4 12-15 MV: 39 MV: 80 MV: 250 NOTE: * FOR ADULT BLACK MALES AND FEMALES, NORMAL WBC IS 2.9-7.7 K/ML * FOR ADULT BLACK MALES AND FEMALES, NORMAL RBC,HGB, AND HCT IS 5% LESS SOURCE FOR DATA: 23press 1800 OPERATION MANUAL( AUTOMATED BLOOD COUNTS AND DIFF.) APPENDIX B-3 Lym% 23.8 % 10.0-58.5 [facility] ([facility] NORMAL RANGES Age WBC RBC HGB HCT MCV PLT Adult M 4.1-10.9 4.20-6.30 12.0-18.0 37.0-51.0 80- 140-440 Adult F 4.1-10.9 4.04-5.48 12.0-18.0 37.0-51.0 80-97 140-440 0 -1 Yr 5.0-20.0 3.9-5.9 15-18 MV: 44 MV: 91 MV: 277 2-9 Yr. 6.0-17.0 3.8-5.4 11-13 MV: 37 MV: 78 MV: 300 10 Yrs. 5.0-13.0 3.8-5.4 12-15 MV: 39 MV: 80 MV: 250 NOTE: * FOR ADULT BLACK MALES AND FEMALES, NORMAL WBC IS 2.9-7.7 K/ML * FOR ADULT BLACK MALES AND FEMALES, NORMAL RBC,HGB, AND HCT IS 5% LESS SOURCE FOR DATA: GAGAN DYN 1800 OPERATION MANUAL( AUTOMATED BLOOD COUNTS AND DIFF.) APPENDIX B-3 Neut% 67.9 % 37.0-92.0 [facility] ([facility] NORMAL RANGES Age WBC RBC HGB HCT MCV PLT Adult M 4.1-10.9 4.20-6.30 12.0-18.0 37.0-51.0 80-97 140-440 Adult F 4.1-10.9 4.04-5.48 12.0-18.0 37.0-51.0 80-97 140-440 0 -1 Yr 5.0-20.0 3.9-5.9 15-18 MV: 44 MV: 91 MV: 277 2-9 Yr. 6.0-17.0 3.8-5.4 11-13 MV: 37 MV: 78 MV: 300 10 Yrs. 5.0-13.0 3.8-5.4 12-15 MV: 39 MV: 80 MV: 250 NOTE: * FOR ADULT BLACK MALES AND FEMALES, NORMAL WBC IS 2.9-7.7 K/ML * FOR ADULT BLACK MALES AND FEMALES, NORMAL RBC,HGB, AND HCT IS 5% LESS SOURCE FOR DATA: GGAAN DYN 1800 OPERATION MANUAL( AUTOMATED BLOOD COUNTS AND DIFF.) APPENDIX B-3 MXD% 8.3 % 0.1-24.0 [facility] ([facility] NORMAL RANGES Age WBC RBC HGB HCT MCV PLT Adult M 4.1-10.9 4.20-6.30 12.0-18.0 37.0-51.0 80-97 140-440 Adult F 4.1-10.9 4.04-5.48 12.0-18.0 37.0-51.0 80-97 140-440 0 -1 Yr 5.0-20.0 3.9-5.9 15-18 MV: 44 MV: 91 MV: 277 2-9 Yr. 6.0-17.0 3.8-5.4 11-13 MV: 37 MV: 78 MV: 300 10 Yrs. 5.0-13.0 3.8-5.4 12-15 MV: 39 MV: 80 MV: 250 NOTE: * FOR ADULT BLACK MALES AND FEMALES, NORMAL WBC IS 2.9-7.7 K/ML * FOR ADULT BLACK MALES AND FEMALES, NORMAL RBC,HGB, AND HCT IS 5% LESS SOURCE FOR DATA: GAGAN DYN 1800 OPERATION MANUAL( AUTOMATED BLOOD COUNTS AND DIFF.) APPENDIX B-3 Lym# 2.9 10E3/uL 0.6-4.1 [facility] ([facility] NORMAL RANGES Age WBC RBC HGB HCT MCV PLT Adult M 4.1-10.9 4.20-6.30 12.0-18.0 37.0-51.0 80-97 140-440 Adult F 4.1-10.9 4.04-5.48 12.0-18.0 37.0-51.0 80-97 140-440 0 -1 Yr 5.0-20.0 3.9-5.9 15-18 MV: 44 MV: 91 MV: 277 2-9 Yr. 6.0-17.0 3.8-5.4 11-13 MV: 37 MV: 78 MV: 300 10 Yrs. 5.0-13.0 3.8-5.4 12-15 MV: 39 MV: 80 MV: 250 NOTE: * FOR ADULT BLACK MALES AND FEMALES, NORMAL WBC IS 2.9-7.7 K/ML * FOR ADULT BLACK MALES AND FEMALES, NORMAL RBC,HGB, AND HCT IS 5% LESS SOURCE FOR DATA: 23press 1800 OPERATION MANUAL( AUTOMATED BLOOD COUNTS AND DIFF.) APPENDIX B-3 Neut# 8.3 % 2.0-7.8 Above high normal [facility] ([facility] NORMAL RANGES Age WBC RBC HGB HCT MCV PLT Adult M 4.1-10.9 4.20-6.30 12.0-18.0 37.0-51.0 80-97 140-440 Adult F 4.1-10.9 4.04-5.48 12.0-18.0 37.0-51.0 80-97 140-440 0 -1 Yr 5.0-20.0 3.9-5.9 15-18 MV: 44 MV: 91 MV: 277 2-9 Yr. 6.0-17.0 3.8-5.4 11-13 MV: 37 MV: 78 MV: 300 10 Yrs. 5.0-13.0 3.8-5.4 12-15 MV: 39 MV: 80 MV: 250 NOTE: * FOR ADULT BLACK MALES AND FEMALES, NORMAL WBC IS 2.9-7.7 K/ML * FOR ADULT BLACK MALES AND FEMALES, NORMAL RBC,HGB, AND HCT IS 5% LESS SOURCE FOR DATA: 23press 1800 OPERATION MANUAL( AUTOMATED BLOOD COUNTS AND DIFF.) APPENDIX B-3 MPV 12.0 fL 9.0-13.0 [facility] NORMAL RANGES Age WBC RBC HGB HCT MCV PLT Adult M 4.1-10.9 4.20-6.30 12.0-18.0 37.0-51.0 80-97 140-440 Adult F 4.1-10.9 4.04-5.48 12.0-18.0 37.0-51.0 140440 0 -1 Yr 5.0-20.0 3.9-5.9 15-18 MV: 44 MV: 91 MV: 277 2-9 Yr. 6.0-17.0 3.8-5.4 11-13 MV: 37 MV: 78 MV: 300 10 Yrs. 5.0-13.0 3.8-5.4 12-15 MV: 39 MV: 80 MV: 250 NOTE: * FOR ADULT BLACK MALES AND FEMALES, NORMAL WBC IS 2.9-7.7 K/ML * FOR ADULT BLACK MALES AND FEMALES, NORMAL RBC,HGB, AND HCT IS 5% LESS SOURCE FOR DATA: 23press 1800 OPERATION MANUAL( AUTOMATED BLOOD COUNTS AND DIFF.) APPENDIX B-3 MXD# 1.0 10E3/uL 0.0-1.8 [facility] ([facility] NORMAL RANGES Age WBC RBC HGB HCT MCV PLT Adult M 4.1-10.9 4.20-6.30 12.0-18.0 37.0-51.0 140440 Adult F 4.1-10.9 4.04-5.48 12.0-18.0 37.0-51.0 140440 0 -1 Yr 5.0-20.0 3.9-5.9 15-18 MV: 44 MV: 91 MV: 277 2-9 Yr. 6.0-17.0 3.8-5.4 11-13 MV: 37 MV: 78 MV: 300 10 Yrs. 5.0-13.0 3.8-5.4 12-15 MV: 39 MV: 80 MV: 250 NOTE: * FOR ADULT BLACK MALES AND FEMALES, NORMAL WBC IS 2.9-7.7 K/ML * FOR ADULT BLACK MALES AND FEMALES, NORMAL RBC,HGB, AND HCT IS 5% LESS SOURCE FOR DATA: [employer] DYN 1800 OPERATION MANUAL( AUTOMATED BLOOD COUNTS AND DIFF.) APPENDIX B-3 ID Date Data Source [id number] 02/03/2020 11:58:00 AM EDT [facility] ([facility] Name Value Range Interpretation Code Description Data Haylee rce(s) Supporting Document(s) Appearance of Urine Laboratory test result [facility] ([facility] Color Urine Laboratory test result M [facility] ([facility] Glucose Urine Laboratory test result [facility] ([facility] PH Urine 5.5 5.0-8.0 [facility] Specific [place] 1.020 1.00-1.03 [facility] ([facility] Bilirubin.total [Presence] in Urine by Test strip Laboratory test res ult [facility] ([facility] Blood Urine Laboratory test result M [facility] ([facility] Ketones Laboratory test result [facility] ([facility] Nitrite Laboratory test result [facility] ([facility] Protein Urine Laboratory test result Above high normal [facility] ([facility] Urobilinogen 0.2 EU/dl 0.2-1.0 [facility] ([facility] Leukocytes Laboratory test result Above high normal [facility] ([facility] ID Date Data Source [id number] 02/01/2020 11:02:00 AM EDT [facility] ([facility] Name Value Range Interpretation Code Description Data Haylee rce(s) Supporting Document(s) Hemoglobin A1c/Hemoglobin.total in Blood 6.4 % 4.50-6.20 Above high normal [facility] ([facility] ID Date Data Source [id number] 02/01/2020 09:16:00 AM EDT [facility] ([facility]) Name Value Range Interpretation Code Description Data Haylee rce(s) Supporting Document(s) Creatine kinase [Enzymatic activity/volume] in Serum or Plasma 83 U /L 26-192 [facility] ([facility] NORMAL RANGES Age WBC RBC HGB HCT MCV PLT Adult M 4.1-10.9 4.20-6.30 12.0-18.0 37.0-51.0 80-97 140-440 Adult F 4.1-10.9 4.04-5.48 12.0-18.0 37.0-51.0 80-97 140-440 0 -1 Yr 5.0-20.0 3.9-5.9 15-18 MV: 44 MV: 91 MV: 277 2-9 Yr. 6.0-17.0 3.8-5.4 11-13 MV: 37 MV: 78 MV: 300 10 Yrs. 5.0-13.0 3.8-5.4 12-15 MV: 39 MV: 80 MV: 250 NOTE: * FOR ADULT BLACK MALES AND FEMALES, NORMAL WBC IS 2.9-7.7 K/ML * FOR ADULT BLACK MALES AND FEMALES, NORMAL RBC,HGB, AND HCT IS 5% LESS SOURCE FOR DATA: 23press 1800 OPERATION MANUAL( AUTOMATED BLOOD COUNTS AND DIFF.) APPENDIX B-3 CHRONIC KIDNEY DISEASE STAGING PER NKF: MALE GFR INTERPRETATION: 20-49 YRS: >60 mL/min Normal 50-59 YRS: >56 mL/min Normal 60-69 YRS: >49 mL/min Normal 70-79 YRS: >42 mL/min Normal 80 and above >35 mL/min Normal FEMALE GRF INTERPRETATION: 20-39 YRS: >60 mL/min Normal 40-49 YRS: >58 mL/min Normal 50-59 YRS: >51 mL/min Normal 60-69 YRS: >45 mL/min Normal 70-79 YRS: >39 mL/min Normal 80 and above >32 mL/min NormalCLASSIFICATION CHOLESTEROL FOR ADULTS CHILDREN/ADOLESCENTS* DESIRABLE: <200 MG/DL <170 MG/DL BORDER-LINE HIGH RISK: 200-239 MG/DL 170-199 MG/DL HIGH RISK: >240 MG/DL >200 MG/DL CLASS. FOR PRIMARY LDL CHOL PREVENTION: LDL CHOL-CHILD/ADOLESCENTS* DESIRABLE: <130 MG/DL <110 MG/DL BORDERLINE-HIGH RISK: 130-159 MG/DL 110-129 MG/DL HIGH RISK: >160 MG/DL >130 MG/DL *CHILDREN AND ADOLESCENTS REPRESENTS INDIVIDUALA AGED 2-19 YEARS EXCLUSIVE. ID Date Data Source [id number] 02/01/2020 09:16:00 AM EDT [facility] ([facility] Name Value Range Interpretation Code Description Data Haylee rce(s) Supporting Document(s) Chol 99 mg/dL 0-200 [facility] ([facility] NORMAL RANGES Age WBC RBC HGB HCT MCV PLT Adult M 4.1-10.9 4.20-6.30 12.0-18.0 37.0-51.0 80-97 140-440 Adult F 4.1-10.9 4.04-5.48 12.0-18.0 37.0-51.0 80-97 140-440 0 -1 Yr 5.0-20.0 3.9-5.9 15-18 MV: 44 MV: 91 MV: 277 2-9 Yr. 6.0-17.0 3.8-5.4 11-13 MV: 37 MV: 78 MV: 300 10 Yrs. 5.0-13.0 3.8-5.4 12-15 MV: 39 MV: 80 MV: 250 NOTE: * FOR ADULT BLACK MALES AND FEMALES, NORMAL WBC IS 2.9-7.7 K/ML * FOR ADULT BLACK MALES AND FEMALES, NORMAL RBC,HGB, AND HCT IS 5% LESS SOURCE FOR DATA: 23press 1800 OPERATION MANUAL( AUTOMATED BLOOD COUNTS AND DIFF.) APPENDIX B-3 CHRONIC KIDNEY DISEASE STAGING PER NKF: MALE GFR INTERPRETATION: 20-49 YRS: >60 mL/min Normal 50-59 YRS: >56 mL/min Normal 60-69 YRS: >49 mL/min Normal 70-79 YRS: >42 mL/min Normal 80 and above >35 mL/min Normal FEMALE GRF INTERPRETATION: 20-39 YRS: >60 mL/min Normal 40-49 YRS: >58 mL/min Normal 50-59 YRS: >51 mL/min Normal 60-69 YRS: >45 mL/min Normal 70-79 YRS: >39 mL/min Normal 80 and above >32 mL/min NormalCLASSIFICATION CHOLESTEROL FOR ADULTS CHILDREN/ADOLESCENTS* DESIRABLE: <200 MG/DL <170 MG/DL BORDER-LINE HIGH RISK: 200-239 MG/DL 170-199 MG/DL HIGH RISK: >240 MG/DL >200 MG/DL CLASS. FOR PRIMARY LDL CHOL PREVENTION: LDL CHOL-CHILD/ADOLESCENTS* DESIRABLE: <130 MG/DL <110 MG/DL BORDERLINE-HIGH RISK: 130-159 MG/DL 110-129 MG/DL HIGH RISK: >160 MG/DL >130 MG/DL *CHILDREN AND ADOLESCENTS REPRESENTS INDIVIDUALA AGED 2-19 YEARS EXCLUSIVE. Trig 172 mg/dL 40-200 [facility] ([facility] NORMAL RANGES Age WBC RBC HGB HCT MCV PLT Adult M 4.1-10.9 4.20-6.30 12.0-18.0 37.0-51.0 80-97 140-440 Adult F 4.1-10.9 4.04-5.48 12.0-18.0 37.0-51.0 80-97 140-440 0 -1 Yr 5.0-20.0 3.9-5.9 15-18 MV: 44 MV: 91 MV: 277 2-9 Yr. 6.0-17.0 3.8-5.4 11-13 MV: 37 MV: 78 MV: 300 10 Yrs. 5.0-13.0 3.8-5.4 12-15 MV: 39 MV: 80 MV: 250 NOTE: * FOR ADULT BLACK MALES AND FEMALES, NORMAL WBC IS 2.9-7.7 K/ML * FOR ADULT BLACK MALES AND FEMALES, NORMAL RBC,HGB, AND HCT IS 5% LESS SOURCE FOR DATA: 23press 1800 OPERATION MANUAL( AUTOMATED BLOOD COUNTS AND DIFF.) APPENDIX B-3 CHRONIC KIDNEY DISEASE STAGING PER NKF: MALE GFR INTERPRETATION: 20-49 YRS: >60 mL/min Normal 50-59 YRS: >56 mL/min Normal 60-69 YRS: >49 mL/min Normal 70-79 YRS: >42 mL/min Normal 80 and above >35 mL/min Normal FEMALE GRF INTERPRETATION: 20-39 YRS: >60 mL/min Normal 40-49 YRS: >58 mL/min Normal 50-59 YRS: >51 mL/min Normal 60-69 YRS: >45 mL/min Normal 70-79 YRS: >39 mL/min Normal 80 and above >32 mL/min NormalCLASSIFICATION CHOLESTEROL FOR ADULTS CHILDREN/ADOLESCENTS* DESIRABLE: <200 MG/DL <170 MG/DL BORDER-LINE HIGH RISK: 200-239 MG/DL 170-199 MG/DL HIGH RISK: >240 MG/DL >200 MG/DL CLASS. FOR PRIMARY LDL CHOL PREVENTION: LDL CHOL-CHILD/ADOLESCENTS* DESIRABLE: <130 MG/DL <110 MG/DL BORDERLINE-HIGH RISK: 130-159 MG/DL 110-129 MG/DL HIGH RISK: >160 MG/DL >130 MG/DL *CHILDREN AND ADOLESCENTS REPRESENTS INDIVIDUALA AGED 2-19 YEARS EXCLUSIVE. Cholesterol in HDL [Mass/volume] in Serum or Plasma 35 mg/dL 45-65 Below low normal [facility] ([facility] ) NORMAL RANGES Age WBC RBC HGB HCT MCV PLT Adult M 4.1-10.9 4.20-6.30 12.0-18.0 37.0-51.0 80-97 140-440 Adult F 4.1-10.9 4.04-5.48 12.0-18.0 37.0-51.0 80-97 140-440 0 -1 Yr 5.0-20.0 3.9-5.9 15-18 MV: 44 MV: 91 MV: 277 2-9 Yr. 6.0-17.0 3.8-5.4 11-13 MV: 37 MV: 78 MV: 300 10 Yrs. 5.0-13.0 3.8-5.4 12-15 MV: 39 MV: 80 MV: 250 NOTE: * FOR ADULT BLACK MALES AND FEMALES, NORMAL WBC IS 2.9-7.7 K/ML * FOR ADULT BLACK MALES AND FEMALES, NORMAL RBC,HGB, AND HCT IS 5% LESS SOURCE FOR DATA: [employer] DYN 1800 OPERATION MANUAL( AUTOMATED BLOOD COUNTS AND DIFF.) APPENDIX B-3 CHRONIC KIDNEY DISEASE STAGING PER NKF: MALE GFR INTERPRETATION: 20-49 YRS: >60 mL/min Normal 50-59 YRS: >56 mL/min Normal 60-69 YRS: >49 mL/min Normal 70-79 YRS: >42 mL/min Normal 80 and above >35 mL/min Normal FEMALE GRF INTERPRETATION: 20-39 YRS: >60 mL/min Normal 40-49 YRS: >58 mL/min Normal 50-59 YRS: >51 mL/min Normal 60-69 YRS: >45 mL/min Normal 70-79 YRS: >39 mL/min Normal 80 and above >32 mL/min NormalCLASSIFICATION CHOLESTEROL FOR ADULTS CHILDREN/ADOLESCENTS* DESIRABLE: <200 MG/DL <170 MG/DL BORDER-LINE HIGH RISK: 200-239 MG/DL 170-199 MG/DL HIGH RISK: >240 MG/DL >200 MG/DL CLASS. FOR PRIMARY LDL CHOL PREVENTION: LDL CHOL-CHILD/ADOLESCENTS* DESIRABLE: <130 MG/DL <110 MG/DL BORDERLINE-HIGH RISK: 130- 159 MG/DL 110-129 MG/DL HIGH RISK: >160 MG/DL >130 MG/DL *CHILDREN AND ADOLESCENTS REPRESENTS INDIVIDUALA AGED 2-19 YEARS EXCLUSIVE. LDL_C 29 Calc 75-129 Below low normal [facility] ( [facility] NORMAL RANGES Age WBC RBC HGB HCT MCV PLT Adult M 4.1-10.9 4.20-6.30 12.0-18.0 37.0-51.0 80-97 140-440 Adult F 4.1-10.9 4.04-5.48 12.0-18.0 37.0-51.0 80-97 140-440 0 -1 Yr 5.0-20.0 3.9-5.9 15-18 MV: 44 MV: 91 MV: 277 2-9 Yr. 6.0-17.0 3.8-5.4 11-13 MV: 37 MV: 78 MV: 300 10 Yrs. 5.0-13.0 3.8-5.4 12-15 MV: 39 MV: 80 MV: 250 NOTE: * FOR ADULT BLACK MALES AND FEMALES, NORMAL WBC IS 2.9-7.7 K/ML * FOR ADULT BLACK MALES AND FEMALES, NORMAL RBC,HGB, AND HCT IS 5% LESS SOURCE FOR DATA: 23press 1800 OPERATION MANUAL( AUTOMATED BLOOD COUNTS AND DIFF.) APPENDIX B-3 CHRONIC KIDNEY DISEASE STAGING PER NKF: MALE GFR INTERPRETATION: 20-49 YRS: >60 mL/min Normal 50-59 YRS: >56 mL/min Normal 60-69 YRS: >49 mL/min Normal 70-79 YRS: >42 mL/min Normal 80 and above >35 mL/min Normal FEMALE GRF INTERPRETATION: 20-39 YRS: >60 mL/min Normal 40-49 YRS: >58 mL/min Normal 50-59 YRS: >51 mL/min Normal 60-69 YRS: >45 mL/min Normal 70-79 YRS: >39 mL/min Normal 80 and above >32 mL/min NormalCLASSIFICATION CHOLESTEROL FOR ADULTS CHILDREN/ADOLESCENTS* DESIRABLE: <200 MG/DL <170 MG/DL BORDER-LINE HIGH RISK: 200-239 MG/DL 170-199 MG/DL HIGH RISK: >240 MG/DL >200 MG/DL CLASS. FOR PRIMARY LDL CHOL PREVENTION: LDL CHOL-CHILD/ADOLESCENTS* DESIRABLE: <130 MG/DL <110 MG/DL BORDERLINE-HIGH RISK: 130- 159 MG/DL 110-129 MG/DL HIGH RISK: >160 MG/DL >130 MG/DL *CHILDREN AND ADOLESCENTS REPRESENTS INDIVIDUALA AGED 2-19 YEARS EXCLUSIVE. Cho/HDL Ratio 2.8 CALC [facility] ([facility] NORMAL RANGES Age WBC RBC HGB HCT MCV PLT Adult M 4.1-10.9 4.20-6.30 12.0-18.0 37.0-51.0 80-97 140-440 Adult F 4.1-10.9 4.04-5.48 12.0-18.0 37.0-51.0 80-97 140-440 0 -1 Yr 5.0-20.0 3.9-5.9 15-18 MV: 44 MV: 91 MV: 277 2-9 Yr. 6.0-17.0 3.8-5.4 11-13 MV: 37 MV: 78 MV: 300 10 Yrs. 5.0-13.0 3.8-5.4 12-15 MV: 39 MV: 80 MV: 250 NOTE: * FOR ADULT BLACK MALES AND FEMALES, NORMAL WBC IS 2.9-7.7 K/ML * FOR ADULT BLACK MALES AND FEMALES, NORMAL RBC,HGB, AND HCT IS 5% LESS SOURCE FOR DATA: 23press 1800 OPERATION MANUAL( AUTOMATED BLOOD COUNTS AND DIFF.) APPENDIX B-3 CHRONIC KIDNEY DISEASE STAGING PER NKF: MALE GFR INTERPRETATION: 20-49 YRS: >60 mL/min Normal 50-59 YRS: >56 mL/min Normal 60-69 YRS: >49 mL/min Normal 70-79 YRS: >42 mL/min Normal 80 and above >35 mL/min Normal FEMALE GRF INTERPRETATION: 20-39 YRS: >60 mL/min Normal 40-49 YRS: >58 mL/min Normal 50-59 YRS: >51 mL/min Normal 60-69 YRS: >45 mL/min Normal 70-79 YRS: >39 mL/min Normal 80 and above >32 mL/min NormalCLASSIFICATION CHOLESTEROL FOR ADULTS CHILDREN/ADOLESCENTS* DESIRABLE: <200 MG/DL <170 MG/DL BORDER-LINE HIGH RISK: 200-239 MG/DL 170-199 MG/DL HIGH RISK: >240 MG/DL >200 MG/DL CLASS. FOR PRIMARY LDL CHOL PREVENTION: LDL CHOL-CHILD/ADOLESCENTS* DESIRABLE: <130 MG/DL <110 MG/DL BORDERLINE-HIGH RISK: 130- 159 MG/DL 110-129 MG/DL HIGH RISK: >160 MG/DL >130 MG/DL *CHILDREN AND ADOLESCENTS REPRESENTS INDIVIDUALA AGED 2-19 YEARS EXCLUSIVE. ID Date Data Source [id number] 02/01/2020 09:16:00 AM EDT [facility] Name Value Range Interpretation Code Description Data Haylee rce(s) Supporting Document(s) BUN 35 mg/dL 8-23 Above high normal [facility] ([facility] NORMAL RANGES Age WBC RBC HGB HCT MCV PLT Adult M 4.1-10.9 4.20-6.30 12.0-18.0 37.0-51.0 80-97 140-440 Adult F 4.1-10.9 4.04-5.48 12.0-18.0 37.0-51.0 80-97 140-440 0 -1 Yr 5.0-20.0 3.9-5.9 15-18 MV: 44 MV: 91 MV: 277 2-9 Yr. 6.0-17.0 3.8-5.4 11-13 MV: 37 MV: 78 MV: 300 10 Yrs. 5.0-13.0 3.8-5.4 12-15 MV: 39 MV: 80 MV: 250 NOTE: * FOR ADULT BLACK MALES AND FEMALES, NORMAL WBC IS 2.9-7.7 K/ML * FOR ADULT BLACK MALES AND FEMALES, NORMAL RBC,HGB, AND HCT IS 5% LESS SOURCE FOR DATA: 23press 1800 OPERATION MANUAL( AUTOMATED BLOOD COUNTS AND DIFF.) APPENDIX B-3 CHRONIC KIDNEY DISEASE STAGING PER NKF: MALE GFR INTERPRETATION: 20-49 YRS: >60 mL/min Normal 50-59 YRS: >56 mL/min Normal 60-69 YRS: >49 mL/min Normal 70-79 YRS: >42 mL/min Normal 80 and above >35 mL/min Normal FEMALE GRF INTERPRETATION: 20-39 YRS: >60 mL/min Normal 40-49 YRS: >58 mL/min Normal 50-59 YRS: >51 mL/min Normal 60-69 YRS: >45 mL/min Normal 70-79 YRS: >39 mL/min Normal 80 and above >32 mL/min NormalCLASSIFICATION CHOLESTEROL FOR ADULTS CHILDREN/ADOLESCENTS* DESIRABLE: <200 MG/DL <170 MG/DL BORDER-LINE HIGH RISK: 200-239 MG/DL 170-199 MG/DL HIGH RISK: >240 MG/DL >200 MG/DL CLASS. FOR PRIMARY LDL CHOL PREVENTION: LDL CHOL-CHILD/ADOLESCENTS* DESIRABLE: <130 MG/DL <110 MG/DL BORDERLINE-HIGH RISK: 130- 159 MG/DL 110-129 MG/DL HIGH RISK: >160 MG/DL >130 MG/DL *CHILDREN AND ADOLESCENTS REPRESENTS INDIVIDUALA AGED 2-19 YEARS EXCLUSIVE. Glu 20 mg/dL 70-110 Below low normal [facility] ( [facility] NORMAL RANGES Age WBC RBC HGB HCT MCV PLT Adult M 4.1-10.9 4.20-6.30 12.0-18.0 37.0-51.0 80-97 140-440 Adult F 4.1-10.9 4.04-5.48 12.0-18.0 37.0-51.0 80-97 140-440 0 -1 Yr 5.0-20.0 3.9-5.9 15-18 MV: 44 MV: 91 MV: 277 2-9 Yr. 6.0-17.0 3.8-5.4 11-13 MV: 37 MV: 78 MV: 300 10 Yrs. 5.0-13.0 3.8-5.4 12-15 MV: 39 MV: 80 MV: 250 NOTE: * FOR ADULT BLACK MALES AND FEMALES, NORMAL WBC IS 2.9-7.7 K/ML * FOR ADULT BLACK MALES AND FEMALES, NORMAL RBC,HGB, AND HCT IS 5% LESS SOURCE FOR DATA: 23press 1800 OPERATION MANUAL( AUTOMATED BLOOD COUNTS AND DIFF.) APPENDIX B-3 CHRONIC KIDNEY DISEASE STAGING PER NKF: MALE GFR INTERPRETATION: 20-49 YRS: >60 mL/min Normal 50-59 YRS: >56 mL/min Normal 60-69 YRS: >49 mL/min Normal 70-79 YRS: >42 mL/min Normal 80 and above >35 mL/min Normal FEMALE GRF INTERPRETATION: 20-39 YRS: >60 mL/min Normal 40-49 YRS: >58 mL/min Normal 50-59 YRS: >51 mL/min Normal 60-69 YRS: >45 mL/min Normal 70-79 YRS: >39 mL/min Normal 80 and above >32 mL/min NormalCLASSIFICATION CHOLESTEROL FOR ADULTS CHILDREN/ADOLESCENTS* DESIRABLE: <200 MG/DL <170 MG/DL BORDER-LINE HIGH RISK: 200-239 MG/DL 170-199 MG/DL HIGH RISK: >240 MG/DL >200 MG/DL CLASS. FOR PRIMARY LDL CHOL PREVENTION: LDL CHOL-CHILD/ADOLESCENTS* DESIRABLE: <130 MG/DL <110 MG/DL BORDERLINE-HIGH RISK: 130- 159 MG/DL 110-129 MG/DL HIGH RISK: >160 MG/DL >130 MG/DL *CHILDREN AND ADOLESCENTS REPRESENTS INDIVIDUALA AGED 2-19 YEARS EXCLUSIVE. BUN/Creatinine Ratio 14.8 CALC [facility] ([facility] NORMAL RANGES Age WBC RBC HGB HCT MCV PLT Adult M 4.1-10.9 4.20-6.30 12.0-18.0 37.0-51.0 80-97 140-440 Adult F 4.1-10.9 4.04-5.48 12.0-18.0 37.0-51.0 80-97 140-440 0 -1 Yr 5.0-20.0 3.9-5.9 15-18 MV: 44 MV: 91 MV: 277 2-9 Yr. 6.0-17.0 3.8-5.4 11-13 MV: 37 MV: 78 MV: 300 10 Yrs. 5.0-13.0 3.8-5.4 12-15 MV: 39 MV: 80 MV: 250 NOTE: * FOR ADULT BLACK MALES AND FEMALES, NORMAL WBC IS 2.9-7.7 K/ML * FOR ADULT BLACK MALES AND FEMALES, NORMAL RBC,HGB, AND HCT IS 5% LESS SOURCE FOR DATA: 23press 1800 OPERATION MANUAL( AUTOMATED BLOOD COUNTS AND DIFF.) APPENDIX B-3 CHRONIC KIDNEY DISEASE STAGING PER NKF: MALE GFR INTERPRETATION: 20-49 YRS: >60 mL/min Normal 50-59 YRS: >56 mL/min Normal 60-69 YRS: >49 mL/min Normal 70-79 YRS: >42 mL/min Normal 80 and above >35 mL/min Normal FEMALE GRF INTERPRETATION: 20-39 YRS: >60 mL/min Normal 40-49 YRS: >58 mL/min Normal 50-59 YRS: >51 mL/min Normal 60-69 YRS: >45 mL/min Normal 70-79 YRS: >39 mL/min Normal 80 and above >32 mL/min NormalCLASSIFICATION CHOLESTEROL FOR ADULTS CHILDREN/ADOLESCENTS* DESIRABLE: <200 MG/DL <170 MG/DL BORDER-LINE HIGH RISK: 200-239 MG/DL 170-199 MG/DL HIGH RISK: >240 MG/DL >200 MG/DL CLASS. FOR PRIMARY LDL CHOL PREVENTION: LDL CHOL-CHILD/ADOLESCENTS* DESIRABLE: <130 MG/DL <110 MG/DL BORDERLINE-HIGH RISK: 130- 159 MG/DL 110-129 MG/DL HIGH RISK: >160 MG/DL >130 MG/DL *CHILDREN AND ADOLESCENTS REPRESENTS INDIVIDUALA AGED 2-19 YEARS EXCLUSIVE. Creat 2.4 mg/dL 0.5-1.0 Above high normal [facility] ([facility] NORMAL RANGES Age WBC RBC HGB HCT MCV PLT Adult M 4.1-10.9 4.20-6.30 12.0-18.0 37.0-51.0 80-97 140-440 Adult F 4.1-10.9 4.04-5.48 12.0-18.0 37.0-51.0 80-97 140-440 0 -1 Yr 5.0-20.0 3.9-5.9 15-18 MV: 44 MV: 91 MV: 277 2-9 Yr. 6.0-17.0 3.8-5.4 11-13 MV: 37 MV: 78 MV: 300 10 Yrs. 5.0-13.0 3.8-5.4 12-15 MV: 39 MV: 80 MV: 250 NOTE: * FOR ADULT BLACK MALES AND FEMALES, NORMAL WBC IS 2.9-7.7 K/ML * FOR ADULT BLACK MALES AND FEMALES, NORMAL RBC,HGB, AND HCT IS 5% LESS SOURCE FOR DATA: 23press 1800 OPERATION MANUAL( AUTOMATED BLOOD COUNTS AND DIFF.) APPENDIX B-3 CHRONIC KIDNEY DISEASE STAGING PER NKF: MALE GFR INTERPRETATION: 20-49 YRS: >60 mL/min Normal 50-59 YRS: >56 mL/min Normal 60-69 YRS: >49 mL/min Normal 70-79 YRS: >42 mL/min Normal 80 and above >35 mL/min Normal FEMALE GRF INTERPRETATION: 20-39 YRS: >60 mL/min Normal 40-49 YRS: >58 mL/min Normal 50-59 YRS: >51 mL/min Normal 60-69 YRS: >45 mL/min Normal 70-79 YRS: >39 mL/min Normal 80 and above >32 mL/min NormalCLASSIFICATION CHOLESTEROL FOR ADULTS CHILDREN/ADOLESCENTS* DESIRABLE: <200 MG/DL <170 MG/DL BORDER-LINE HIGH RISK: 200-239 MG/DL 170-199 MG/DL HIGH RISK: >240 MG/DL >200 MG/DL CLASS. FOR PRIMARY LDL CHOL PREVENTION: LDL CHOL-CHILD/ADOLESCENTS* DESIRABLE: <130 MG/DL <110 MG/DL BORDERLINE-HIGH RISK: 130- 159 MG/DL 110-129 MG/DL HIGH RISK: >160 MG/DL >130 MG/DL *CHILDREN AND ADOLESCENTS REPRESENTS INDIVIDUALA AGED 2-19 YEARS EXCLUSIVE. Na 138 mmol/L 136-145 [facility] ([facility] NORMAL RANGES Age WBC RBC HGB HCT MCV PLT Adult M 4.1-10.9 4.20-6.30 12.0-18.0 37.0-51.0 80-97 140-440 Adult F 4.1-10.9 4.04-5.48 12.0-18.0 37.0-51.0 80-97 140-440 0 -1 Yr 5.0-20.0 3.9-5.9 15-18 MV: 44 MV: 91 MV: 277 2-9 Yr. 6.0-17.0 3.8-5.4 11-13 MV: 37 MV: 78 MV: 300 10 Yrs. 5.0-13.0 3.8-5.4 12-15 MV: 39 MV: 80 MV: 250 NOTE: * FOR ADULT BLACK MALES AND FEMALES, NORMAL WBC IS 2.9-7.7 K/ML * FOR ADULT BLACK MALES AND FEMALES, NORMAL RBC,HGB, AND HCT IS 5% LESS SOURCE FOR DATA: 23press 1800 OPERATION MANUAL( AUTOMATED BLOOD COUNTS AND DIFF.) APPENDIX B-3 CHRONIC KIDNEY DISEASE STAGING PER NKF: MALE GFR INTERPRETATION: 20-49 YRS: >60 mL/min Normal 50-59 YRS: >56 mL/min Normal 60-69 YRS: >49 mL/min Normal 70-79 YRS: >42 mL/min Normal 80 and above >35 mL/min Normal FEMALE GRF INTERPRETATION: 20-39 YRS: >60 mL/min Normal 40-49 YRS: >58 mL/min Normal 50-59 YRS: >51 mL/min Normal 60-69 YRS: >45 mL/min Normal 70-79 YRS: >39 mL/min Normal 80 and above >32 mL/min NormalCLASSIFICATION CHOLESTEROL FOR ADULTS CHILDREN/ADOLESCENTS* DESIRABLE: <200 MG/DL <170 MG/DL BORDER-LINE HIGH RISK: 200-239 MG/DL 170-199 MG/DL HIGH RISK: >240 MG/DL >200 MG/DL CLASS. FOR PRIMARY LDL CHOL PREVENTION: LDL CHOL-CHILD/ADOLESCENTS* DESIRABLE: <130 MG/DL <110 MG/DL BORDERLINE-HIGH RISK: 130- 159 MG/DL 110-129 MG/DL HIGH RISK: >160 MG/DL >130 MG/DL *CHILDREN AND ADOLESCENTS REPRESENTS INDIVIDUALA AGED 2-19 YEARS EXCLUSIVE. K 4.8 mmol/L 3.5-5.1 [facility] ([facility] NORMAL RANGES Age WBC RBC HGB HCT MCV PLT Adult M 4.1-10.9 4.20-6.30 12.0-18.0 37.0-51.0 80-97 140-440 Adult F 4.1-10.9 4.04-5.48 12.0-18.0 37.0-51.0 80-97 140-440 0 -1 Yr 5.0-20.0 3.9-5.9 15-18 MV: 44 MV: 91 MV: 277 2-9 Yr. 6.0-17.0 3.8-5.4 11-13 MV: 37 MV: 78 MV: 300 10 Yrs. 5.0-13.0 3.8-5.4 12-15 MV: 39 MV: 80 MV: 250 NOTE: * FOR ADULT BLACK MALES AND FEMALES, NORMAL WBC IS 2.9-7.7 K/ML * FOR ADULT BLACK MALES AND FEMALES, NORMAL RBC,HGB, AND HCT IS 5% LESS SOURCE FOR DATA: 23press 1800 OPERATION MANUAL( AUTOMATED BLOOD COUNTS AND DIFF.) APPENDIX B-3 CHRONIC KIDNEY DISEASE STAGING PER NKF: MALE GFR INTERPRETATION: 20-49 YRS: >60 mL/min Normal 50-59 YRS: >56 mL/min Normal 60-69 YRS: >49 mL/min Normal 70-79 YRS: >42 mL/min Normal 80 and above >35 mL/min Normal FEMALE GRF INTERPRETATION: 20-39 YRS: >60 mL/min Normal 40-49 YRS: >58 mL/min Normal 50-59 YRS: >51 mL/min Normal 60-69 YRS: >45 mL/min Normal 70-79 YRS: >39 mL/min Normal 80 and above >32 mL/min NormalCLASSIFICATION CHOLESTEROL FOR ADULTS CHILDREN/ADOLESCENTS* DESIRABLE: <200 MG/DL <170 MG/DL BORDER-LINE HIGH RISK: 200-239 MG/DL 170-199 MG/DL HIGH RISK: >240 MG/DL >200 MG/DL CLASS. FOR PRIMARY LDL CHOL PREVENTION: LDL CHOL-CHILD/ADOLESCENTS* DESIRABLE: <130 MG/DL <110 MG/DL BORDERLINE-HIGH RISK: 130- 159 MG/DL 110-129 MG/DL HIGH RISK: >160 MG/DL >130 MG/DL *CHILDREN AND ADOLESCENTS REPRESENTS INDIVIDUALA AGED 2-19 YEARS EXCLUSIVE. Co2 24.1 mmol/L 22.0-29.0 [facility] ([facility] NORMAL RANGES Age WBC RBC HGB HCT MCV PLT Adult M 4.1-10.9 4.20-6.30 12.0-18.0 37.0-51.0 80-97 140-440 Adult F 4.1-10.9 4.04-5.48 12.0-18.0 37.0-51.0 80-97 140-440 0 -1 Yr 5.0-20.0 3.9-5.9 15-18 MV: 44 MV: 91 MV: 277 2-9 Yr. 6.0-17.0 3.8-5.4 11-13 MV: 37 MV: 78 MV: 300 10 Yrs. 5.0-13.0 3.8-5.4 12-15 MV: 39 MV: 80 MV: 250 NOTE: * FOR ADULT BLACK MALES AND FEMALES, NORMAL WBC IS 2.9-7.7 K/ML * FOR ADULT BLACK MALES AND FEMALES, NORMAL RBC,HGB, AND HCT IS 5% LESS SOURCE FOR DATA: 23press 1800 OPERATION MANUAL( AUTOMATED BLOOD COUNTS AND DIFF.) APPENDIX B-3 CHRONIC KIDNEY DISEASE STAGING PER NKF: MALE GFR INTERPRETATION: 20-49 YRS: >60 mL/min Normal 50-59 YRS: >56 mL/min Normal 60-69 YRS: >49 mL/min Normal 70-79 YRS: >42 mL/min Normal 80 and above >35 mL/min Normal FEMALE GRF INTERPRETATION: 20-39 YRS: >60 mL/min Normal 40-49 YRS: >58 mL/min Normal 50-59 YRS: >51 mL/min Normal 60-69 YRS: >45 mL/min Normal 70-79 YRS: >39 mL/min Normal 80 and above >32 mL/min NormalCLASSIFICATION CHOLESTEROL FOR ADULTS CHILDREN/ADOLESCENTS* DESIRABLE: <200 MG/DL <170 MG/DL BORDER-LINE HIGH RISK: 200-239 MG/DL 170-199 MG/DL HIGH RISK: >240 MG/DL >200 MG/DL CLASS. FOR PRIMARY LDL CHOL PREVENTION: LDL CHOL-CHILD/ADOLESCENTS* DESIRABLE: <130 MG/DL <110 MG/DL BORDERLINE-HIGH RISK: 130- 159 MG/DL 110-129 MG/DL HIGH RISK: >160 MG/DL >130 MG/DL *CHILDREN AND ADOLESCENTS REPRESENTS INDIVIDUALA AGED 2-19 YEARS EXCLUSIVE. CL 101.1 mmol/L 98.0-107.0 [facility] ([facility] NORMAL RANGES Age WBC RBC HGB HCT MCV PLT Adult M 4.1-10.9 4.20-6.30 12.0-18.0 37.0-51.0 80-97 140-440 Adult F 4.1-10.9 4.04-5.48 12.0-18.0 37.0-51.0 80-97 140-440 0 -1 Yr 5.0-20.0 3.9-5.9 15-18 MV: 44 MV: 91 MV: 277 2-9 Yr. 6.0-17.0 3.8-5.4 11-13 MV: 37 MV: 78 MV: 300 10 Yrs. 5.0-13.0 3.8-5.4 12-15 MV: 39 MV: 80 MV: 250 NOTE: * FOR ADULT BLACK MALES AND FEMALES, NORMAL WBC IS 2.9-7.7 K/ML * FOR ADULT BLACK MALES AND FEMALES, NORMAL RBC,HGB, AND HCT IS 5% LESS SOURCE FOR DATA: 23press 1800 OPERATION MANUAL( AUTOMATED BLOOD COUNTS AND DIFF.) APPENDIX B-3 CHRONIC KIDNEY DISEASE STAGING PER NKF: MALE GFR INTERPRETATION: 20-49 YRS: >60 mL/min Normal 50-59 YRS: >56 mL/min Normal 60-69 YRS: >49 mL/min Normal 70-79 YRS: >42 mL/min Normal 80 and above >35 mL/min Normal FEMALE GRF INTERPRETATION: 20-39 YRS: >60 mL/min Normal 40-49 YRS: >58 mL/min Normal 50-59 YRS: >51 mL/min Normal 60-69 YRS: >45 mL/min Normal 70-79 YRS: >39 mL/min Normal 80 and above >32 mL/min NormalCLASSIFICATION CHOLESTEROL FOR ADULTS CHILDREN/ADOLESCENTS* DESIRABLE: <200 MG/DL <170 MG/DL BORDER-LINE HIGH RISK: 200-239 MG/DL 170-199 MG/DL HIGH RISK: >240 MG/DL >200 MG/DL CLASS. FOR PRIMARY LDL CHOL PREVENTION: LDL CHOL-CHILD/ADOLESCENTS* DESIRABLE: <130 MG/DL <110 MG/DL BORDERLINE-HIGH RISK: 130- 159 MG/DL 110-129 MG/DL HIGH RISK: >160 MG/DL >130 MG/DL *CHILDREN AND ADOLESCENTS REPRESENTS INDIVIDUALA AGED 2-19 YEARS EXCLUSIVE. Alb 3.8 g/dL 3.4-4.8 [facility] ([facility] NORMAL RANGES Age WBC RBC HGB HCT MCV PLT Adult M 4.1-10.9 4.20-6.30 12.0-18.0 37.0-51.0 80-97 140-440 Adult F 4.1-10.9 4.04-5.48 12.0-18.0 37.0-51.0 80-97 140-440 0 -1 Yr 5.0-20.0 3.9-5.9 15-18 MV: 44 MV: 91 MV: 277 2-9 Yr. 6.0-17.0 3.8-5.4 11-13 MV: 37 MV: 78 MV: 300 10 Yrs. 5.0-13.0 3.8-5.4 12-15 MV: 39 MV: 80 MV: 250 NOTE: * FOR ADULT BLACK MALES AND FEMALES, NORMAL WBC IS 2.9-7.7 K/ML * FOR ADULT BLACK MALES AND FEMALES, NORMAL RBC,HGB, AND HCT IS 5% LESS SOURCE FOR DATA: 23press 1800 OPERATION MANUAL( AUTOMATED BLOOD COUNTS AND DIFF.) APPENDIX B-3 CHRONIC KIDNEY DISEASE STAGING PER NKF: MALE GFR INTERPRETATION: 20-49 YRS: >60 mL/min Normal 50-59 YRS: >56 mL/min Normal 60-69 YRS: >49 mL/min Normal 70-79 YRS: >42 mL/min Normal 80 and above >35 mL/min Normal FEMALE GRF INTERPRETATION: 20-39 YRS: >60 mL/min Normal 40-49 YRS: >58 mL/min Normal 50-59 YRS: >51 mL/min Normal 60-69 YRS: >45 mL/min Normal 70-79 YRS: >39 mL/min Normal 80 and above >32 mL/min NormalCLASSIFICATION CHOLESTEROL FOR ADULTS CHILDREN/ADOLESCENTS* DESIRABLE: <200 MG/DL <170 MG/DL BORDER-LINE HIGH RISK: 200-239 MG/DL 170-199 MG/DL HIGH RISK: >240 MG/DL >200 MG/DL CLASS. FOR PRIMARY LDL CHOL PREVENTION: LDL CHOL-CHILD/ADOLESCENTS* DESIRABLE: <130 MG/DL <110 MG/DL BORDERLINE-HIGH RISK: 130- 159 MG/DL 110-129 MG/DL HIGH RISK: >160 MG/DL >130 MG/DL *CHILDREN AND ADOLESCENTS REPRESENTS INDIVIDUALA AGED 2-19 YEARS EXCLUSIVE. TP 5.9 g/dL 6.6-8.7 Below low normal [facility] ( [facility] NORMAL RANGES Age WBC RBC HGB HCT MCV PLT Adult M 4.1-10.9 4.20-6.30 12.0-18.0 37.0-51.0 80-97 140-440 Adult F 4.1-10.9 4.04-5.48 12.0-18.0 37.0-51.0 80-97 140-440 0 -1 Yr 5.0-20.0 3.9-5.9 15-18 MV: 44 MV: 91 MV: 277 2-9 Yr. 6.0-17.0 3.8-5.4 11-13 MV: 37 MV: 78 MV: 300 10 Yrs. 5.0-13.0 3.8-5.4 12-15 MV: 39 MV: 80 MV: 250 NOTE: * FOR ADULT BLACK MALES AND FEMALES, NORMAL WBC IS 2.9-7.7 K/ML * FOR ADULT BLACK MALES AND FEMALES, NORMAL RBC,HGB, AND HCT IS 5% LESS SOURCE FOR DATA: 23press 1800 OPERATION MANUAL( AUTOMATED BLOOD COUNTS AND DIFF.) APPENDIX B-3 CHRONIC KIDNEY DISEASE STAGING PER NKF: MALE GFR INTERPRETATION: 20-49 YRS: >60 mL/min Normal 50-59 YRS: >56 mL/min Normal 60-69 YRS: >49 mL/min Normal 70-79 YRS: >42 mL/min Normal 80 and above >35 mL/min Normal FEMALE GRF INTERPRETATION: 20-39 YRS: >60 mL/min Normal 40-49 YRS: >58 mL/min Normal 50-59 YRS: >51 mL/min Normal 60-69 YRS: >45 mL/min Normal 70-79 YRS: >39 mL/min Normal 80 and above >32 mL/min NormalCLASSIFICATION CHOLESTEROL FOR ADULTS CHILDREN/ADOLESCENTS* DESIRABLE: <200 MG/DL <170 MG/DL BORDER-LINE HIGH RISK: 200-239 MG/DL 170-199 MG/DL HIGH RISK: >240 MG/DL >200 MG/DL CLASS. FOR PRIMARY LDL CHOL PREVENTION: LDL CHOL-CHILD/ADOLESCENTS* DESIRABLE: <130 MG/DL <110 MG/DL BORDERLINE-HIGH RISK: 130- 159 MG/DL 110-129 MG/DL HIGH RISK: >160 MG/DL >130 MG/DL *CHILDREN AND ADOLESCENTS REPRESENTS INDIVIDUALA AGED 2-19 YEARS EXCLUSIVE. CA 9.3 mg/dL 8.6-10.2 [facility] NORMAL RANGES Age WBC RBC HGB HCT MCV PLT Adult M 4.1-10.9 4.20-6.30 12.0-18.0 37.0-51.0 80-97 140-440 Adult F 4.1-10.9 4.04-5.48 12.0-18.0 37.0-51.0 80-97 140-440 0 -1 Yr 5.0-20.0 3.9-5.9 15-18 MV: 44 MV: 91 MV: 277 2-9 Yr. 6.0-17.0 3.8-5.4 11-13 MV: 37 MV: 78 MV: 300 10 Yrs. 5.0-13.0 3.8-5.4 12-15 MV: 39 MV: 80 MV: 250 NOTE: * FOR ADULT BLACK MALES AND FEMALES, NORMAL WBC IS 2.9-7.7 K/ML * FOR ADULT BLACK MALES AND FEMALES, NORMAL RBC,HGB, AND HCT IS 5% LESS SOURCE FOR DATA: 23press 1800 OPERATION MANUAL( AUTOMATED BLOOD COUNTS AND DIFF.) APPENDIX B-3 CHRONIC KIDNEY DISEASE STAGING PER NKF: MALE GFR INTERPRETATION: 20-49 YRS: >60 mL/min Normal 50-59 YRS: >56 mL/min Normal 60-69 YRS: >49 mL/min Normal 70-79 YRS: >42 mL/min Normal 80 and above >35 mL/min Normal FEMALE GRF INTERPRETATION: 20-39 YRS: >60 mL/min Normal 40-49 YRS: >58 mL/min Normal 50-59 YRS: >51 mL/min Normal 60-69 YRS: >45 mL/min Normal 70-79 YRS: >39 mL/min Normal 80 and above >32 mL/min NormalCLASSIFICATION CHOLESTEROL FOR ADULTS CHILDREN/ADOLESCENTS* DESIRABLE: <200 MG/DL <170 MG/DL BORDER-LINE HIGH RISK: 200-239 MG/DL 170-199 MG/DL HIGH RISK: >240 MG/DL >200 MG/DL CLASS. FOR PRIMARY LDL CHOL PREVENTION: LDL CHOL-CHILD/ADOLESCENTS* DESIRABLE: <130 MG/DL <110 MG/DL BORDERLINE-HIGH RISK: 130- 159 MG/DL 110-129 MG/DL HIGH RISK: >160 MG/DL >130 MG/DL *CHILDREN AND ADOLESCENTS REPRESENTS INDIVIDUALA AGED 2-19 YEARS EXCLUSIVE. Alp 108.5 U/L 35-129 [facility] ([facility] NORMAL RANGES Age WBC RBC HGB HCT MCV PLT Adult M 4.1-10.9 4.20-6.30 12.0-18.0 37.0-51.0 80-97 140-440 Adult F 4.1-10.9 4.04-5.48 12.0-18.0 37.0-51.0 80-97 140-440 0 -1 Yr 5.0-20.0 3.9-5.9 15-18 MV: 44 MV: 91 MV: 277 2-9 Yr. 6.0-17.0 3.8-5.4 11-13 MV: 37 MV: 78 MV: 300 10 Yrs. 5.0-13.0 3.8-5.4 12-15 MV: 39 MV: 80 MV: 250 NOTE: * FOR ADULT BLACK MALES AND FEMALES, NORMAL WBC IS 2.9-7.7 K/ML * FOR ADULT BLACK MALES AND FEMALES, NORMAL RBC,HGB, AND HCT IS 5% LESS SOURCE FOR DATA: GAGAN DYN 1800 OPERATION MANUAL( AUTOMATED BLOOD COUNTS AND DIFF.) APPENDIX B-3 CHRONIC KIDNEY DISEASE STAGING PER NKF: MALE GFR INTERPRETATION: 20-49 YRS: >60 mL/min Normal 50-59 YRS: >56 mL/min Normal 60-69 YRS: >49 mL/min Normal 70-79 YRS: >42 mL/min Normal 80 and above >35 mL/min Normal FEMALE GRF INTERPRETATION: 20-39 YRS: >60 mL/min Normal 40-49 YRS: >58 mL/min Normal 50-59 YRS: >51 mL/min Normal 60-69 YRS: >45 mL/min Normal 70-79 YRS: >39 mL/min Normal 80 and above >32 mL/min NormalCLASSIFICATION CHOLESTEROL FOR ADULTS CHILDREN/ADOLESCENTS* DESIRABLE: <200 MG/DL <170 MG/DL BORDER-LINE HIGH RISK: 200-239 MG/DL 170-199 MG/DL HIGH RISK: >240 MG/DL >200 MG/DL CLASS. FOR PRIMARY LDL CHOL PREVENTION: LDL CHOL-CHILD/ADOLESCENTS* DESIRABLE: <130 MG/DL <110 MG/DL BORDERLINE-HIGH RISK: 130- 159 MG/DL 110-129 MG/DL HIGH RISK: >160 MG/DL >130 MG/DL *CHILDREN AND ADOLESCENTS REPRESENTS INDIVIDUALA AGED 2-19 YEARS EXCLUSIVE. Globulin 2.1 [facility]C [facility] ([facility] NORMAL RANGES Age WBC RBC HGB HCT MCV PLT Adult M 4.1-10.9 4.20-6.30 12.0-18.0 37.0-51.0 80-97 140-440 Adult F 4.1-10.9 4.04-5.48 12.0-18.0 37.0-51.0 80-97 140-440 0 -1 Yr 5.0-20.0 3.9-5.9 15-18 MV: 44 MV: 91 MV: 277 2-9 Yr. 6.0-17.0 3.8-5.4 11-13 MV: 37 MV: 78 MV: 300 10 Yrs. 5.0-13.0 3.8-5.4 12-15 MV: 39 MV: 80 MV: 250 NOTE: * FOR ADULT BLACK MALES AND FEMALES, NORMAL WBC IS 2.9-7.7 K/ML * FOR ADULT BLACK MALES AND FEMALES, NORMAL RBC,HGB, AND HCT IS 5% LESS SOURCE FOR DATA: 23press 1800 OPERATION MANUAL( AUTOMATED BLOOD COUNTS AND DIFF.) APPENDIX B-3 CHRONIC KIDNEY DISEASE STAGING PER NKF: MALE GFR INTERPRETATION: 20-49 YRS: >60 mL/min Normal 50-59 YRS: >56 mL/min Normal 60-69 YRS: >49 mL/min Normal 70-79 YRS: >42 mL/min Normal 80 and above >35 mL/min Normal FEMALE GRF INTERPRETATION: 20-39 YRS: >60 mL/min Normal 40-49 YRS: >58 mL/min Normal 50-59 YRS: >51 mL/min Normal 60-69 YRS: >45 mL/min Normal 70-79 YRS: >39 mL/min Normal 80 and above >32 mL/min NormalCLASSIFICATION CHOLESTEROL FOR ADULTS CHILDREN/ADOLESCENTS* DESIRABLE: <200 MG/DL <170 MG/DL BORDER-LINE HIGH RISK: 200-239 MG/DL 170-199 MG/DL HIGH RISK: >240 MG/DL >200 MG/DL CLASS. FOR PRIMARY LDL CHOL PREVENTION: LDL CHOL-CHILD/ADOLESCENTS* DESIRABLE: <130 MG/DL <110 MG/DL BORDERLINE-HIGH RISK: 130- 159 MG/DL 110-129 MG/DL HIGH RISK: >160 MG/DL >130 MG/DL *CHILDREN AND ADOLESCENTS REPRESENTS INDIVIDUALA AGED 2-19 YEARS EXCLUSIVE. A/G Ratio 1.8 [facility] ([facility] NORMAL RANGES Age WBC RBC HGB HCT MCV PLT Adult M 4.1-10.9 4.20-6.30 12.0-18.0 37.0-51.0 80-97 140-440 Adult F 4.1-10.9 4.04-5.48 12.0-18.0 37.0-51.0 80-97 140-440 0 -1 Yr 5.0-20.0 3.9-5.9 15-18 MV: 44 MV: 91 MV: 277 2-9 Yr. 6.0-17.0 3.8-5.4 11-13 MV: 37 MV: 78 MV: 300 10 Yrs. 5.0-13.0 3.8-5.4 12-15 MV: 39 MV: 80 MV: 250 NOTE: * FOR ADULT BLACK MALES AND FEMALES, NORMAL WBC IS 2.9-7.7 K/ML * FOR ADULT BLACK MALES AND FEMALES, NORMAL RBC,HGB, AND HCT IS 5% LESS SOURCE FOR DATA: 23press 1800 OPERATION MANUAL( AUTOMATED BLOOD COUNTS AND DIFF.) APPENDIX B-3 CHRONIC KIDNEY DISEASE STAGING PER NKF: MALE GFR INTERPRETATION: 20-49 YRS: >60 mL/min Normal 50-59 YRS: >56 mL/min Normal 60-69 YRS: >49 mL/min Normal 70-79 YRS: >42 mL/min Normal 80 and above >35 mL/min Normal FEMALE GRF INTERPRETATION: 20-39 YRS: >60 mL/min Normal 40-49 YRS: >58 mL/min Normal 50-59 YRS: >51 mL/min Normal 60-69 YRS: >45 mL/min Normal 70-79 YRS: >39 mL/min Normal 80 and above >32 mL/min NormalCLASSIFICATION CHOLESTEROL FOR ADULTS CHILDREN/ADOLESCENTS* DESIRABLE: <200 MG/DL <170 MG/DL BORDER-LINE HIGH RISK: 200-239 MG/DL 170-199 MG/DL HIGH RISK: >240 MG/DL >200 MG/DL CLASS. FOR PRIMARY LDL CHOL PREVENTION: LDL CHOL-CHILD/ADOLESCENTS* DESIRABLE: <130 MG/DL <110 MG/DL BORDERLINE-HIGH RISK: 130- 159 MG/DL 110-129 MG/DL HIGH RISK: >160 MG/DL >130 MG/DL *CHILDREN AND ADOLESCENTS REPRESENTS INDIVIDUALA AGED 2-19 YEARS EXCLUSIVE. Alt (SGPT) 16 U/L 0-41 [facility] ([facility] NORMAL RANGES Age WBC RBC HGB HCT MCV PLT Adult M 4.1-10.9 4.20-6.30 12.0-18.0 37.0-51.0 80-97 140-440 Adult F 4.1-10.9 4.04-5.48 12.0-18.0 37.0-51.0 80-97 140-440 0 -1 Yr 5.0-20.0 3.9-5.9 15-18 MV: 44 MV: 91 MV: 277 2-9 Yr. 6.0-17.0 3.8-5.4 11-13 MV: 37 MV: 78 MV: 300 10 Yrs. 5.0-13.0 3.8-5.4 12-15 MV: 39 MV: 80 MV: 250 NOTE: * FOR ADULT BLACK MALES AND FEMALES, NORMAL WBC IS 2.9-7.7 K/ML * FOR ADULT BLACK MALES AND FEMALES, NORMAL RBC,HGB, AND HCT IS 5% LESS SOURCE FOR DATA: 23press 1800 OPERATION MANUAL( AUTOMATED BLOOD COUNTS AND DIFF.) APPENDIX B-3 CHRONIC KIDNEY DISEASE STAGING PER NKF: MALE GFR INTERPRETATION: 20-49 YRS: >60 mL/min Normal 50-59 YRS: >56 mL/min Normal 60-69 YRS: >49 mL/min Normal 70-79 YRS: >42 mL/min Normal 80 and above >35 mL/min Normal FEMALE GRF INTERPRETATION: 20-39 YRS: >60 mL/min Normal 40-49 YRS: >58 mL/min Normal 50-59 YRS: >51 mL/min Normal 60-69 YRS: >45 mL/min Normal 70-79 YRS: >39 mL/min Normal 80 and above >32 mL/min NormalCLASSIFICATION CHOLESTEROL FOR ADULTS CHILDREN/ADOLESCENTS* DESIRABLE: <200 MG/DL <170 MG/DL BORDER-LINE HIGH RISK: 200-239 MG/DL 170-199 MG/DL HIGH RISK: >240 MG/DL >200 MG/DL CLASS. FOR PRIMARY LDL CHOL PREVENTION: LDL CHOL-CHILD/ADOLESCENTS* DESIRABLE: <130 MG/DL <110 MG/DL BORDERLINE-HIGH RISK: 130- 159 MG/DL 110-129 MG/DL HIGH RISK: >160 MG/DL >130 MG/DL *CHILDREN AND ADOLESCENTS REPRESENTS INDIVIDUALA AGED 2-19 YEARS EXCLUSIVE. Tbili 0.17 mg/dL 0.0-1.2 [facility] ([facility] NORMAL RANGES Age WBC RBC HGB HCT MCV PLT Adult M 4.1-10.9 4.20-6.30 12.0-18.0 37.0-51.0 80-97 140-440 Adult F 4.1-10.9 4.04-5.48 12.0-18.0 37.0-51.0 80-97 140-440 0 -1 Yr 5.0-20.0 3.9-5.9 15-18 MV: 44 MV: 91 MV: 277 2-9 Yr. 6.0-17.0 3.8-5.4 11-13 MV: 37 MV: 78 MV: 300 10 Yrs. 5.0-13.0 3.8-5.4 12-15 MV: 39 MV: 80 MV: 250 NOTE: * FOR ADULT BLACK MALES AND FEMALES, NORMAL WBC IS 2.9-7.7 K/ML * FOR ADULT BLACK MALES AND FEMALES, NORMAL RBC,HGB, AND HCT IS 5% LESS SOURCE FOR DATA: 23press 1800 OPERATION MANUAL( AUTOMATED BLOOD COUNTS AND DIFF.) APPENDIX B-3 CHRONIC KIDNEY DISEASE STAGING PER NKF: MALE GFR INTERPRETATION: 20-49 YRS: >60 mL/min Normal 50-59 YRS: >56 mL/min Normal 60-69 YRS: >49 mL/min Normal 70-79 YRS: >42 mL/min Normal 80 and above >35 mL/min Normal FEMALE GRF INTERPRETATION: 20-39 YRS: >60 mL/min Normal 40-49 YRS: >58 mL/min Normal 50-59 YRS: >51 mL/min Normal 60-69 YRS: >45 mL/min Normal 70-79 YRS: >39 mL/min Normal 80 and above >32 mL/min NormalCLASSIFICATION CHOLESTEROL FOR ADULTS CHILDREN/ADOLESCENTS* DESIRABLE: <200 MG/DL <170 MG/DL BORDER-LINE HIGH RISK: 200-239 MG/DL 170-199 MG/DL HIGH RISK: >240 MG/DL >200 MG/DL CLASS. FOR PRIMARY LDL CHOL PREVENTION: LDL CHOL-CHILD/ADOLESCENTS* DESIRABLE: <130 MG/DL <110 MG/DL BORDERLINE-HIGH RISK: 130- 159 MG/DL 110-129 MG/DL HIGH RISK: >160 MG/DL >130 MG/DL *CHILDREN AND ADOLESCENTS REPRESENTS INDIVIDUALA AGED 2-19 YEARS EXCLUSIVE. Ast (Sgot) 17 U/L 0-40 [facility] ([facility] NORMAL RANGES Age WBC RBC HGB HCT MCV PLT Adult M 4.1-10.9 4.20-6.30 12.0-18.0 37.0-51.0 80-97 140-440 Adult F 4.1-10.9 4.04-5.48 12.0-18.0 37.0-51.0 80-97 140-440 0 -1 Yr 5.0-20.0 3.9-5.9 15-18 MV: 44 MV: 91 MV: 277 2-9 Yr. 6.0-17.0 3.8-5.4 11-13 MV: 37 MV: 78 MV: 300 10 Yrs. 5.0-13.0 3.8-5.4 12-15 MV: 39 MV: 80 MV: 250 NOTE: * FOR ADULT BLACK MALES AND FEMALES, NORMAL WBC IS 2.9-7.7 K/ML * FOR ADULT BLACK MALES AND FEMALES, NORMAL RBC,HGB, AND HCT IS 5% LESS SOURCE FOR DATA: 23press 1800 OPERATION MANUAL( AUTOMATED BLOOD COUNTS AND DIFF.) APPENDIX B-3 CHRONIC KIDNEY DISEASE STAGING PER NKF: MALE GFR INTERPRETATION: 20-49 YRS: >60 mL/min Normal 50-59 YRS: >56 mL/min Normal 60-69 YRS: >49 mL/min Normal 70-79 YRS: >42 mL/min Normal 80 and above >35 mL/min Normal FEMALE GRF INTERPRETATION: 20-39 YRS: >60 mL/min Normal 40-49 YRS: >58 mL/min Normal 50-59 YRS: >51 mL/min Normal 60-69 YRS: >45 mL/min Normal 70-79 YRS: >39 mL/min Normal 80 and above >32 mL/min NormalCLASSIFICATION CHOLESTEROL FOR ADULTS CHILDREN/ADOLESCENTS* DESIRABLE: <200 MG/DL <170 MG/DL BORDER-LINE HIGH RISK: 200-239 MG/DL 170-199 MG/DL HIGH RISK: >240 MG/DL >200 MG/DL CLASS. FOR PRIMARY LDL CHOL PREVENTION: LDL CHOL-CHILD/ADOLESCENTS* DESIRABLE: <130 MG/DL <110 MG/DL BORDERLINE-HIGH RISK: 130- 159 MG/DL 110-129 MG/DL HIGH RISK: >160 MG/DL >130 MG/DL *CHILDREN AND ADOLESCENTS REPRESENTS INDIVIDUALA AGED 2-19 YEARS EXCLUSIVE. Anion Gap 17 mmol/L [facility] ([facility] NORMAL RANGES Age WBC RBC HGB HCT MCV PLT Adult M 4.1-10.9 4.20-6.30 12.0-18.0 37.0-51.0 80-97 140-440 Adult F 4.1-10.9 4.04-5.48 12.0-18.0 37.0-51.0 80-97 140-440 0 -1 Yr 5.0-20.0 3.9-5.9 15-18 MV: 44 MV: 91 MV: 277 2-9 Yr. 6.0-17.0 3.8-5.4 11-13 MV: 37 MV: 78 MV: 300 10 Yrs. 5.0-13.0 3.8-5.4 12-15 MV: 39 MV: 80 MV: 250 NOTE: * FOR ADULT BLACK MALES AND FEMALES, NORMAL WBC IS 2.9-7.7 K/ML * FOR ADULT BLACK MALES AND FEMALES, NORMAL RBC,HGB, AND HCT IS 5% LESS SOURCE FOR DATA: 23press 1800 OPERATION MANUAL( AUTOMATED BLOOD COUNTS AND DIFF.) APPENDIX B-3 CHRONIC KIDNEY DISEASE STAGING PER NKF: MALE GFR INTERPRETATION: 20-49 YRS: >60 mL/min Normal 50-59 YRS: >56 mL/min Normal 60-69 YRS: >49 mL/min Normal 70-79 YRS: >42 mL/min Normal 80 and above >35 mL/min Normal FEMALE GRF INTERPRETATION: 20-39 YRS: >60 mL/min Normal 40-49 YRS: >58 mL/min Normal 50-59 YRS: >51 mL/min Normal 60-69 YRS: >45 mL/min Normal 70-79 YRS: >39 mL/min Normal 80 and above >32 mL/min NormalCLASSIFICATION CHOLESTEROL FOR ADULTS CHILDREN/ADOLESCENTS* DESIRABLE: <200 MG/DL <170 MG/DL BORDER-LINE HIGH RISK: 200-239 MG/DL 170-199 MG/DL HIGH RISK: >240 MG/DL >200 MG/DL CLASS. FOR PRIMARY LDL CHOL PREVENTION: LDL CHOL-CHILD/ADOLESCENTS* DESIRABLE: <130 MG/DL <110 MG/DL BORDERLINE-HIGH RISK: 130- 159 MG/DL 110-129 MG/DL HIGH RISK: >160 MG/DL >130 MG/DL *CHILDREN AND ADOLESCENTS REPRESENTS INDIVIDUALA AGED 2-19 YEARS EXCLUSIVE. Osmolality-Calculated 279.1 [facility] ([facility] NORMAL RANGES Age WBC RBC HGB HCT MCV PLT Adult M 4.1-10.9 4.20-6.30 12.0-18.0 37.0-51.0 80-97 140-440 Adult F 4.1-10.9 4.04-5.48 12.0-18.0 37.0-51.0 80-97 140-440 0 -1 Yr 5.0-20.0 3.9-5.9 15-18 MV: 44 MV: 91 MV: 277 2-9 Yr. 6.0-17.0 3.8-5.4 11-13 MV: 37 MV: 78 MV: 300 10 Yrs. 5.0-13.0 3.8-5.4 12-15 MV: 39 MV: 80 MV: 250 NOTE: * FOR ADULT BLACK MALES AND FEMALES, NORMAL WBC IS 2.9-7.7 K/ML * FOR ADULT BLACK MALES AND FEMALES, NORMAL RBC,HGB, AND HCT IS 5% LESS SOURCE FOR DATA: [employer] DYN 1800 OPERATION MANUAL( AUTOMATED BLOOD COUNTS AND DIFF.) APPENDIX B-3 CHRONIC KIDNEY DISEASE STAGING PER NKF: MALE GFR INTERPRETATION: 20-49 YRS: >60 mL/min Normal 50-59 YRS: >56 mL/min Normal 60-69 YRS: >49 mL/min Normal 70-79 YRS: >42 mL/min Normal 80 and above >35 mL/min Normal FEMALE GRF INTERPRETATION: 20-39 YRS: >60 mL/min Normal 40-49 YRS: >58 mL/min Normal 50-59 YRS: >51 mL/min Normal 60-69 YRS: >45 mL/min Normal 70-79 YRS: >39 mL/min Normal 80 and above >32 mL/min NormalCLASSIFICATION CHOLESTEROL FOR ADULTS CHILDREN/ADOLESCENTS* DESIRABLE: <200 MG/DL <170 MG/DL BORDER-LINE HIGH RISK: 200-239 MG/DL 170-199 MG/DL HIGH RISK: >240 MG/DL >200 MG/DL CLASS. FOR PRIMARY LDL CHOL PREVENTION: LDL CHOL-CHILD/ADOLESCENTS* DESIRABLE: <130 MG/DL <110 MG/DL BORDERLINE-HIGH RISK: 130- 159 MG/DL 110-129 MG/DL HIGH RISK: >160 MG/DL >130 MG/DL *CHILDREN AND ADOLESCENTS REPRESENTS INDIVIDUALA AGED 2-19 YEARS EXCLUSIVE. eGFR Non-Afr. Bahamian 20 # [facility] ([facility] NORMAL RANGES Age WBC RBC HGB HCT MCV PLT Adult M 4.1-10.9 4.20-6.30 12.0-18.0 37.0-51.0 80-97 140-440 Adult F 4.1-10.9 4.04-5.48 12.0-18.0 37.0-51.0 80-97 140-440 0 -1 Yr 5.0-20.0 3.9-5.9 15-18 MV: 44 MV: 91 MV: 277 2-9 Yr. 6.0-17.0 3.8-5.4 11-13 MV: 37 MV: 78 MV: 300 10 Yrs. 5.0-13.0 3.8-5.4 12-15 MV: 39 MV: 80 MV: 250 NOTE: * FOR ADULT BLACK MALES AND FEMALES, NORMAL WBC IS 2.9-7.7 K/ML * FOR ADULT BLACK MALES AND FEMALES, NORMAL RBC,HGB, AND HCT IS 5% LESS SOURCE FOR DATA: 23press 1800 OPERATION MANUAL( AUTOMATED BLOOD COUNTS AND DIFF.) APPENDIX B-3 CHRONIC KIDNEY DISEASE STAGING PER NKF: MALE GFR INTERPRETATION: 20-49 YRS: >60 mL/min Normal 50-59 YRS: >56 mL/min Normal 60-69 YRS: >49 mL/min Normal 70-79 YRS: >42 mL/min Normal 80 and above >35 mL/min Normal FEMALE GRF INTERPRETATION: 20-39 YRS: >60 mL/min Normal 40-49 YRS: >58 mL/min Normal 50-59 YRS: >51 mL/min Normal 60-69 YRS: >45 mL/min Normal 70-79 YRS: >39 mL/min Normal 80 and above >32 mL/min NormalCLASSIFICATION CHOLESTEROL FOR ADULTS CHILDREN/ADOLESCENTS* DESIRABLE: <200 MG/DL <170 MG/DL BORDER-LINE HIGH RISK: 200-239 MG/DL 170-199 MG/DL HIGH RISK: >240 MG/DL >200 MG/DL CLASS. FOR PRIMARY LDL CHOL PREVENTION: LDL CHOL-CHILD/ADOLESCENTS* DESIRABLE: <130 MG/DL <110 MG/DL BORDERLINE-HIGH RISK: 130- 159 MG/DL 110-129 MG/DL HIGH RISK: >160 MG/DL >130 MG/DL *CHILDREN AND ADOLESCENTS REPRESENTS INDIVIDUALA AGED 2-19 YEARS EXCLUSIVE. eGFR 23 # [facility] ( [facility] NORMAL RANGES Age WBC RBC HGB HCT MCV PLT Adult M 4.1-10.9 4.20-6.30 12.0-18.0 37.0-51.0 80-97 140-440 Adult F 4.1-10.9 4.04-5.48 12.0-18.0 37.0-51.0 80-97 140-440 0 -1 Yr 5.0-20.0 3.9-5.9 15-18 MV: 44 MV: 91 MV: 277 2-9 Yr. 6.0-17.0 3.8-5.4 11-13 MV: 37 MV: 78 MV: 300 10 Yrs. 5.0-13.0 3.8-5.4 12-15 MV: 39 MV: 80 MV: 250 NOTE: * FOR ADULT BLACK MALES AND FEMALES, NORMAL WBC IS 2.9-7.7 K/ML * FOR ADULT BLACK MALES AND FEMALES, NORMAL RBC,HGB, AND HCT IS 5% LESS SOURCE FOR DATA: 23press 1800 OPERATION MANUAL( AUTOMATED BLOOD COUNTS AND DIFF.) APPENDIX B-3 CHRONIC KIDNEY DISEASE STAGING PER NKF: MALE GFR INTERPRETATION: 20-49 YRS: >60 mL/min Normal 50-59 YRS: >56 mL/min Normal 60-69 YRS: >49 mL/min Normal 70-79 YRS: >42 mL/min Normal 80 and above >35 mL/min Normal FEMALE GRF INTERPRETATION: 20-39 YRS: >60 mL/min Normal 40-49 YRS: >58 mL/min Normal 50-59 YRS: >51 mL/min Normal 60-69 YRS: >45 mL/min Normal 70-79 YRS: >39 mL/min Normal 80 and above >32 mL/min NormalCLASSIFICATION CHOLESTEROL FOR ADULTS CHILDREN/ADOLESCENTS* DESIRABLE: <200 MG/DL <170 MG/DL BORDER-LINE HIGH RISK: 200-239 MG/DL 170-199 MG/DL HIGH RISK: >240 MG/DL >200 MG/DL CLASS. FOR PRIMARY LDL CHOL PREVENTION: LDL CHOL-CHILD/ADOLESCENTS* DESIRABLE: <130 MG/DL <110 MG/DL BORDERLINE-HIGH RISK: 130- 159 MG/DL 110-129 MG/DL HIGH RISK: >160 MG/DL >130 MG/DL *CHILDREN AND ADOLESCENTS REPRESENTS INDIVIDUALA AGED 2-19 YEARS EXCLUSIVE. ID Date Data Source [id number] 02/01/2020 09:16:00 AM EDT [facility] ([facility] Name Value Range Interpretation Code Description Data Haylee rce(s) Supporting Document(s) WBC 11.1 10E3/uL 4.1-10.9 Above high normal [facility] ([facility] NORMAL RANGES Age WBC RBC HGB HCT MCV PLT Adult M 4.1-10.9 4.20-6.30 12.0-18.0 37.0-51.0 80-97 140-440 Adult F 4.1-10.9 4.04-5.48 12.0-18.0 37.0-51.0 80-97 140-440 0 -1 Yr 5.0-20.0 3.9-5.9 15-18 MV: 44 MV: 91 MV: 277 2-9 Yr. 6.0-17.0 3.8-5.4 11-13 MV: 37 MV: 78 MV: 300 10 Yrs. 5.0-13.0 3.8-5.4 12-15 MV: 39 MV: 80 MV: 250 NOTE: * FOR ADULT BLACK MALES AND FEMALES, NORMAL WBC IS 2.9-7.7 K/ML * FOR ADULT BLACK MALES AND FEMALES, NORMAL RBC,HGB, AND HCT IS 5% LESS SOURCE FOR DATA: 23press 1800 OPERATION MANUAL( AUTOMATED BLOOD COUNTS AND DIFF.) APPENDIX B-3 CHRONIC KIDNEY DISEASE STAGING PER NKF: MALE GFR INTERPRETATION: 20-49 YRS: >60 mL/min Normal 50-59 YRS: >56 mL/min Normal 60-69 YRS: >49 mL/min Normal 70-79 YRS: >42 mL/min Normal 80 and above >35 mL/min Normal FEMALE GRF INTERPRETATION: 20-39 YRS: >60 mL/min Normal 40-49 YRS: >58 mL/min Normal 50-59 YRS: >51 mL/min Normal 60-69 YRS: >45 mL/min Normal 70-79 YRS: >39 mL/min Normal 80 and above >32 mL/min NormalCLASSIFICATION CHOLESTEROL FOR ADULTS CHILDREN/ADOLESCENTS* DESIRABLE: <200 MG/DL <170 MG/DL BORDER-LINE HIGH RISK: 200-239 MG/DL 170-199 MG/DL HIGH RISK: >240 MG/DL >200 MG/DL CLASS. FOR PRIMARY LDL CHOL PREVENTION: LDL CHOL-CHILD/ADOLESCENTS* DESIRABLE: <130 MG/DL <110 MG/DL BORDERLINE-HIGH RISK: 130- 159 MG/DL 110-129 MG/DL HIGH RISK: >160 MG/DL >130 MG/DL *CHILDREN AND ADOLESCENTS REPRESENTS INDIVIDUALA AGED 2-19 YEARS EXCLUSIVE. HGB 11.9 g/dL 12.0-18.0 Below low normal [facility] ( [facility] NORMAL RANGES Age WBC RBC HGB HCT MCV PLT Adult M 4.1-10.9 4.20-6.30 12.0-18.0 37.0-51.0 80-97 140-440 Adult F 4.1-10.9 4.04-5.48 12.0-18.0 37.0-51.0 80-97 140-440 0 -1 Yr 5.0-20.0 3.9-5.9 15-18 MV: 44 MV: 91 MV: 277 2-9 Yr. 6.0-17.0 3.8-5.4 11-13 MV: 37 MV: 78 MV: 300 10 Yrs. 5.0-13.0 3.8-5.4 12-15 MV: 39 MV: 80 MV: 250 NOTE: * FOR ADULT BLACK MALES AND FEMALES, NORMAL WBC IS 2.9-7.7 K/ML * FOR ADULT BLACK MALES AND FEMALES, NORMAL RBC,HGB, AND HCT IS 5% LESS SOURCE FOR DATA: [employer] DYN 1800 OPERATION MANUAL( AUTOMATED BLOOD COUNTS AND DIFF.) APPENDIX B-3 CHRONIC KIDNEY DISEASE STAGING PER NKF: MALE GFR INTERPRETATION: 20-49 YRS: >60 mL/min Normal 50-59 YRS: >56 mL/min Normal 60-69 YRS: >49 mL/min Normal 70-79 YRS: >42 mL/min Normal 80 and above >35 mL/min Normal FEMALE GRF INTERPRETATION: 20-39 YRS: >60 mL/min Normal 40-49 YRS: >58 mL/min Normal 50-59 YRS: >51 mL/min Normal 60-69 YRS: >45 mL/min Normal 70-79 YRS: >39 mL/min Normal 80 and above >32 mL/min NormalCLASSIFICATION CHOLESTEROL FOR ADULTS CHILDREN/ADOLESCENTS* DESIRABLE: <200 MG/DL <170 MG/DL BORDER-LINE HIGH RISK: 200-239 MG/DL 170-199 MG/DL HIGH RISK: >240 MG/DL >200 MG/DL CLASS. FOR PRIMARY LDL CHOL PREVENTION: LDL CHOL-CHILD/ADOLESCENTS* DESIRABLE: <130 MG/DL <110 MG/DL BORDERLINE-HIGH RISK: 130- 159 MG/DL 110-129 MG/DL HIGH RISK: >160 MG/DL >130 MG/DL *CHILDREN AND ADOLESCENTS REPRESENTS INDIVIDUALA AGED 2-19 YEARS EXCLUSIVE. RBC 3.78 10E6/uL 4.20-6.30 Below low normal [facility] ([facility] NORMAL RANGES Age WBC RBC HGB HCT MCV PLT Adult M 4.1-10.9 4.20-6.30 12.0-18.0 37.0-51.0 80-97 140-440 Adult F 4.1-10.9 4.04-5.48 12.0-18.0 37.0-51.0 80-97 140-440 0 -1 Yr 5.0-20.0 3.9-5.9 15-18 MV: 44 MV: 91 MV: 277 2-9 Yr. 6.0-17.0 3.8-5.4 11-13 MV: 37 MV: 78 MV: 300 10 Yrs. 5.0-13.0 3.8-5.4 12-15 MV: 39 MV: 80 MV: 250 NOTE: * FOR ADULT BLACK MALES AND FEMALES, NORMAL WBC IS 2.9-7.7 K/ML * FOR ADULT BLACK MALES AND FEMALES, NORMAL RBC,HGB, AND HCT IS 5% LESS SOURCE FOR DATA: 23press 1800 OPERATION MANUAL( AUTOMATED BLOOD COUNTS AND DIFF.) APPENDIX B-3 CHRONIC KIDNEY DISEASE STAGING PER NKF: MALE GFR INTERPRETATION: 20-49 YRS: >60 mL/min Normal 50-59 YRS: >56 mL/min Normal 60-69 YRS: >49 mL/min Normal 70-79 YRS: >42 mL/min Normal 80 and above >35 mL/min Normal FEMALE GRF INTERPRETATION: 20-39 YRS: >60 mL/min Normal 40-49 YRS: >58 mL/min Normal 50-59 YRS: >51 mL/min Normal 60-69 YRS: >45 mL/min Normal 70-79 YRS: >39 mL/min Normal 80 and above >32 mL/min NormalCLASSIFICATION CHOLESTEROL FOR ADULTS CHILDREN/ADOLESCENTS* DESIRABLE: <200 MG/DL <170 MG/DL BORDER-LINE HIGH RISK: 200-239 MG/DL 170-199 MG/DL HIGH RISK: >240 MG/DL >200 MG/DL CLASS. FOR PRIMARY LDL CHOL PREVENTION: LDL CHOL-CHILD/ADOLESCENTS* DESIRABLE: <130 MG/DL <110 MG/DL BORDERLINE-HIGH RISK: 130- 159 MG/DL 110-129 MG/DL HIGH RISK: >160 MG/DL >130 MG/DL *CHILDREN AND ADOLESCENTS REPRESENTS INDIVIDUALA AGED 2-19 YEARS EXCLUSIVE. MCH 31.5 pg 26.0-32.0 [facility] ([facility] NORMAL RANGES Age WBC RBC HGB HCT MCV PLT Adult M 4.1-10.9 4.20-6.30 12.0-18.0 37.0-51.0 80-97 140-440 Adult F 4.1-10.9 4.04-5.48 12.0-18.0 37.0-51.0 80-97 140-440 0 -1 Yr 5.0-20.0 3.9-5.9 15-18 MV: 44 MV: 91 MV: 277 2-9 Yr. 6.0-17.0 3.8-5.4 11-13 MV: 37 MV: 78 MV: 300 10 Yrs. 5.0-13.0 3.8-5.4 12-15 MV: 39 MV: 80 MV: 250 NOTE: * FOR ADULT BLACK MALES AND FEMALES, NORMAL WBC IS 2.9-7.7 K/ML * FOR ADULT BLACK MALES AND FEMALES, NORMAL RBC,HGB, AND HCT IS 5% LESS SOURCE FOR DATA: 23press 1800 OPERATION MANUAL( AUTOMATED BLOOD COUNTS AND DIFF.) APPENDIX B-3 CHRONIC KIDNEY DISEASE STAGING PER NKF: MALE GFR INTERPRETATION: 20-49 YRS: >60 mL/min Normal 50-59 YRS: >56 mL/min Normal 60-69 YRS: >49 mL/min Normal 70-79 YRS: >42 mL/min Normal 80 and above >35 mL/min Normal FEMALE GRF INTERPRETATION: 20-39 YRS: >60 mL/min Normal 40-49 YRS: >58 mL/min Normal 50-59 YRS: >51 mL/min Normal 60-69 YRS: >45 mL/min Normal 70-79 YRS: >39 mL/min Normal 80 and above >32 mL/min NormalCLASSIFICATION CHOLESTEROL FOR ADULTS CHILDREN/ADOLESCENTS* DESIRABLE: <200 MG/DL <170 MG/DL BORDER-LINE HIGH RISK: 200-239 MG/DL 170-199 MG/DL HIGH RISK: >240 MG/DL >200 MG/DL CLASS. FOR PRIMARY LDL CHOL PREVENTION: LDL CHOL-CHILD/ADOLESCENTS* DESIRABLE: <130 MG/DL <110 MG/DL BORDERLINE-HIGH RISK: 130- 159 MG/DL 110-129 MG/DL HIGH RISK: >160 MG/DL >130 MG/DL *CHILDREN AND ADOLESCENTS REPRESENTS INDIVIDUALA AGED 2-19 YEARS EXCLUSIVE. HCT 36.3 % 37.0-51.0 Below low normal [facility] ( [facility] NORMAL RANGES Age WBC RBC HGB HCT MCV PLT Adult M 4.1-10.9 4.20-6.30 12.0-18.0 37.0-51.0 80-97 140-440 Adult F 4.1-10.9 4.04-5.48 12.0-18.0 37.0-51.0 80-97 140-440 0 -1 Yr 5.0-20.0 3.9-5.9 15-18 MV: 44 MV: 91 MV: 277 2-9 Yr. 6.0-17.0 3.8-5.4 11-13 MV: 37 MV: 78 MV: 300 10 Yrs. 5.0-13.0 3.8-5.4 12-15 MV: 39 MV: 80 MV: 250 NOTE: * FOR ADULT BLACK MALES AND FEMALES, NORMAL WBC IS 2.9-7.7 K/ML * FOR ADULT BLACK MALES AND FEMALES, NORMAL RBC,HGB, AND HCT IS 5% LESS SOURCE FOR DATA: [employer] DYN 1800 OPERATION MANUAL( AUTOMATED BLOOD COUNTS AND DIFF.) APPENDIX B-3 CHRONIC KIDNEY DISEASE STAGING PER NKF: MALE GFR INTERPRETATION: 20-49 YRS: >60 mL/min Normal 50-59 YRS: >56 mL/min Normal 60-69 YRS: >49 mL/min Normal 70-79 YRS: >42 mL/min Normal 80 and above >35 mL/min Normal FEMALE GRF INTERPRETATION: 20-39 YRS: >60 mL/min Normal 40-49 YRS: >58 mL/min Normal 50-59 YRS: >51 mL/min Normal 60-69 YRS: >45 mL/min Normal 70-79 YRS: >39 mL/min Normal 80 and above >32 mL/min NormalCLASSIFICATION CHOLESTEROL FOR ADULTS CHILDREN/ADOLESCENTS* DESIRABLE: <200 MG/DL <170 MG/DL BORDER-LINE HIGH RISK: 200-239 MG/DL 170-199 MG/DL HIGH RISK: >240 MG/DL >200 MG/DL CLASS. FOR PRIMARY LDL CHOL PREVENTION: LDL CHOL-CHILD/ADOLESCENTS* DESIRABLE: <130 MG/DL <110 MG/DL BORDERLINE-HIGH RISK: 130- 159 MG/DL 110-129 MG/DL HIGH RISK: >160 MG/DL >130 MG/DL *CHILDREN AND ADOLESCENTS REPRESENTS INDIVIDUALA AGED 2-19 YEARS EXCLUSIVE. MCV 96.0 fL 80.0-97.0 [facility] ([facility] NORMAL RANGES Age WBC RBC HGB HCT MCV PLT Adult M 4.1-10.9 4.20-6.30 12.0-18.0 37.0-51.0 80-97 140-440 Adult F 4.1-10.9 4.04-5.48 12.0-18.0 37.0-51.0 80-97 140-440 0 -1 Yr 5.0-20.0 3.9-5.9 15-18 MV: 44 MV: 91 MV: 277 2-9 Yr. 6.0-17.0 3.8-5.4 11-13 MV: 37 MV: 78 MV: 300 10 Yrs. 5.0-13.0 3.8-5.4 12-15 MV: 39 MV: 80 MV: 250 NOTE: * FOR ADULT BLACK MALES AND FEMALES, NORMAL WBC IS 2.9-7.7 K/ML * FOR ADULT BLACK MALES AND FEMALES, NORMAL RBC,HGB, AND HCT IS 5% LESS SOURCE FOR DATA: [employer]press 1800 OPERATION MANUAL( AUTOMATED BLOOD COUNTS AND DIFF.) APPENDIX B-3 CHRONIC KIDNEY DISEASE STAGING PER NKF: MALE GFR INTERPRETATION: 20-49 YRS: >60 mL/min Normal 50-59 YRS: >56 mL/min Normal 60-69 YRS: >49 mL/min Normal 70-79 YRS: >42 mL/min Normal 80 and above >35 mL/min Normal FEMALE GRF INTERPRETATION: 20-39 YRS: >60 mL/min Normal 40-49 YRS: >58 mL/min Normal 50-59 YRS: >51 mL/min Normal 60-69 YRS: >45 mL/min Normal 70-79 YRS: >39 mL/min Normal 80 and above >32 mL/min NormalCLASSIFICATION CHOLESTEROL FOR ADULTS CHILDREN/ADOLESCENTS* DESIRABLE: <200 MG/DL <170 MG/DL BORDER-LINE HIGH RISK: 200-239 MG/DL 170-199 MG/DL HIGH RISK: >240 MG/DL >200 MG/DL CLASS. FOR PRIMARY LDL CHOL PREVENTION: LDL CHOL-CHILD/ADOLESCENTS* DESIRABLE: <130 MG/DL <110 MG/DL BORDERLINE-HIGH RISK: 130- 159 MG/DL 110-129 MG/DL HIGH RISK: >160 MG/DL >130 MG/DL *CHILDREN AND ADOLESCENTS REPRESENTS INDIVIDUALA AGED 2-19 YEARS EXCLUSIVE. RDW-CV 18.5 % 11.5-14.5 Above high normal [facility] ([facility] NORMAL RANGES Age WBC RBC HGB HCT MCV PLT Adult M 4.1-10.9 4.20-6.30 12.0-18.0 37.0-51.0 80-97 140-440 Adult F 4.1-10.9 4.04-5.48 12.0-18.0 37.0-51.0 80-97 140-440 0 -1 Yr 5.0-20.0 3.9-5.9 15-18 MV: 44 MV: 91 MV: 277 2-9 Yr. 6.0-17.0 3.8-5.4 11-13 MV: 37 MV: 78 MV: 300 10 Yrs. 5.0-13.0 3.8-5.4 12-15 MV: 39 MV: 80 MV: 250 NOTE: * FOR ADULT BLACK MALES AND FEMALES, NORMAL WBC IS 2.9-7.7 K/ML * FOR ADULT BLACK MALES AND FEMALES, NORMAL RBC,HGB, AND HCT IS 5% LESS SOURCE FOR DATA: 23press 1800 OPERATION MANUAL( AUTOMATED BLOOD COUNTS AND DIFF.) APPENDIX B-3 CHRONIC KIDNEY DISEASE STAGING PER NKF: MALE GFR INTERPRETATION: 20-49 YRS: >60 mL/min Normal 50-59 YRS: >56 mL/min Normal 60-69 YRS: >49 mL/min Normal 70-79 YRS: >42 mL/min Normal 80 and above >35 mL/min Normal FEMALE GRF INTERPRETATION: 20-39 YRS: >60 mL/min Normal 40-49 YRS: >58 mL/min Normal 50-59 YRS: >51 mL/min Normal 60-69 YRS: >45 mL/min Normal 70-79 YRS: >39 mL/min Normal 80 and above >32 mL/min NormalCLASSIFICATION CHOLESTEROL FOR ADULTS CHILDREN/ADOLESCENTS* DESIRABLE: <200 MG/DL <170 MG/DL BORDER-LINE HIGH RISK: 200-239 MG/DL 170-199 MG/DL HIGH RISK: >240 MG/DL >200 MG/DL CLASS. FOR PRIMARY LDL CHOL PREVENTION: LDL CHOL-CHILD/ADOLESCENTS* DESIRABLE: <130 MG/DL <110 MG/DL BORDERLINE-HIGH RISK: 130- 159 MG/DL 110-129 MG/DL HIGH RISK: >160 MG/DL >130 MG/DL *CHILDREN AND ADOLESCENTS REPRESENTS INDIVIDUALA AGED 2-19 YEARS EXCLUSIVE. PLT 379 10E3/uL 140-440 [employer] ([facility] NORMAL RANGES Age WBC RBC HGB HCT MCV PLT Adult M 4.1-10.9 4.20-6.30 12.0-18.0 37.0-51.0 80-97 140-440 Adult F 4.1-10.9 4.04-5.48 12.0-18.0 37.0-51.0 80-97 140-440 0 -1 Yr 5.0-20.0 3.9-5.9 15-18 MV: 44 MV: 91 MV: 277 2-9 Yr. 6.0-17.0 3.8-5.4 11-13 MV: 37 MV: 78 MV: 300 10 Yrs. 5.0-13.0 3.8-5.4 12-15 MV: 39 MV: 80 MV: 250 NOTE: * FOR ADULT BLACK MALES AND FEMALES, NORMAL WBC IS 2.9-7.7 K/ML * FOR ADULT BLACK MALES AND FEMALES, NORMAL RBC,HGB, AND HCT IS 5% LESS SOURCE FOR DATA: [employer] DYN 1800 OPERATION MANUAL( AUTOMATED BLOOD COUNTS AND DIFF.) APPENDIX B-3 CHRONIC KIDNEY DISEASE STAGING PER NKF: MALE GFR INTERPRETATION: 20-49 YRS: >60 mL/min Normal 50-59 YRS: >56 mL/min Normal 60-69 YRS: >49 mL/min Normal 70-79 YRS: >42 mL/min Normal 80 and above >35 mL/min Normal FEMALE GRF INTERPRETATION: 20-39 YRS: >60 mL/min Normal 40-49 YRS: >58 mL/min Normal 50-59 YRS: >51 mL/min Normal 60-69 YRS: >45 mL/min Normal 70-79 YRS: >39 mL/min Normal 80 and above >32 mL/min NormalCLASSIFICATION CHOLESTEROL FOR ADULTS CHILDREN/ADOLESCENTS* DESIRABLE: <200 MG/DL <170 MG/DL BORDER-LINE HIGH RISK: 200-239 MG/DL 170-199 MG/DL HIGH RISK: >240 MG/DL >200 MG/DL CLASS. FOR PRIMARY LDL CHOL PREVENTION: LDL CHOL-CHILD/ADOLESCENTS* DESIRABLE: <130 MG/DL <110 MG/DL BORDERLINE-HIGH RISK: 130- 159 MG/DL 110-129 MG/DL HIGH RISK: >160 MG/DL >130 MG/DL *CHILDREN AND ADOLESCENTS REPRESENTS INDIVIDUALA AGED 2-19 YEARS EXCLUSIVE. MCHC 32.8 g/dL 31.0-36.0 [facility] ([facility] NORMAL RANGES Age WBC RBC HGB HCT MCV PLT Adult M 4.1-10.9 4.20-6.30 12.0-18.0 37.0-51.0 80-97 140-440 Adult F 4.1-10.9 4.04-5.48 12.0-18.0 37.0-51.0 80-97 140-440 0 -1 Yr 5.0-20.0 3.9-5.9 15-18 MV: 44 MV: 91 MV: 277 2-9 Yr. 6.0-17.0 3.8-5.4 11-13 MV: 37 MV: 78 MV: 300 10 Yrs. 5.0-13.0 3.8-5.4 12-15 MV: 39 MV: 80 MV: 250 NOTE: * FOR ADULT BLACK MALES AND FEMALES, NORMAL WBC IS 2.9-7.7 K/ML * FOR ADULT BLACK MALES AND FEMALES, NORMAL RBC,HGB, AND HCT IS 5% LESS SOURCE FOR DATA: 23press 1800 OPERATION MANUAL( AUTOMATED BLOOD COUNTS AND DIFF.) APPENDIX B-3 CHRONIC KIDNEY DISEASE STAGING PER NKF: MALE GFR INTERPRETATION: 20-49 YRS: >60 mL/min Normal 50-59 YRS: >56 mL/min Normal 60-69 YRS: >49 mL/min Normal 70-79 YRS: >42 mL/min Normal 80 and above >35 mL/min Normal FEMALE GRF INTERPRETATION: 20-39 YRS: >60 mL/min Normal 40-49 YRS: >58 mL/min Normal 50-59 YRS: >51 mL/min Normal 60-69 YRS: >45 mL/min Normal 70-79 YRS: >39 mL/min Normal 80 and above >32 mL/min NormalCLASSIFICATION CHOLESTEROL FOR ADULTS CHILDREN/ADOLESCENTS* DESIRABLE: <200 MG/DL <170 MG/DL BORDER-LINE HIGH RISK: 200-239 MG/DL 170-199 MG/DL HIGH RISK: >240 MG/DL >200 MG/DL CLASS. FOR PRIMARY LDL CHOL PREVENTION: LDL CHOL-CHILD/ADOLESCENTS* DESIRABLE: <130 MG/DL <110 MG/DL BORDERLINE-HIGH RISK: 130- 159 MG/DL 110-129 MG/DL HIGH RISK: >160 MG/DL >130 MG/DL *CHILDREN AND ADOLESCENTS REPRESENTS INDIVIDUALA AGED 2-19 YEARS EXCLUSIVE. Neut% 61.4 % 37.0-92.0 [facility] ([facility] NORMAL RANGES Age WBC RBC HGB HCT MCV PLT Adult M 4.1-10.9 4.20-6.30 12.0-18.0 37.0-51.0 80-97 140-440 Adult F 4.1-10.9 4.04-5.48 12.0-18.0 37.0-51.0 80-97 140-440 0 -1 Yr 5.0-20.0 3.9-5.9 15-18 MV: 44 MV: 91 MV: 277 2-9 Yr. 6.0-17.0 3.8-5.4 11-13 MV: 37 MV: 78 MV: 300 10 Yrs. 5.0-13.0 3.8-5.4 12-15 MV: 39 MV: 80 MV: 250 NOTE: * FOR ADULT BLACK MALES AND FEMALES, NORMAL WBC IS 2.9-7.7 K/ML * FOR ADULT BLACK MALES AND FEMALES, NORMAL RBC,HGB, AND HCT IS 5% LESS SOURCE FOR DATA: 23press 1800 OPERATION MANUAL( AUTOMATED BLOOD COUNTS AND DIFF.) APPENDIX B-3 CHRONIC KIDNEY DISEASE STAGING PER NKF: MALE GFR INTERPRETATION: 20-49 YRS: >60 mL/min Normal 50-59 YRS: >56 mL/min Normal 60-69 YRS: >49 mL/min Normal 70-79 YRS: >42 mL/min Normal 80 and above >35 mL/min Normal FEMALE GRF INTERPRETATION: 20-39 YRS: >60 mL/min Normal 40-49 YRS: >58 mL/min Normal 50-59 YRS: >51 mL/min Normal 60-69 YRS: >45 mL/min Normal 70-79 YRS: >39 mL/min Normal 80 and above >32 mL/min NormalCLASSIFICATION CHOLESTEROL FOR ADULTS CHILDREN/ADOLESCENTS* DESIRABLE: <200 MG/DL <170 MG/DL BORDER-LINE HIGH RISK: 200-239 MG/DL 170-199 MG/DL HIGH RISK: >240 MG/DL >200 MG/DL CLASS. FOR PRIMARY LDL CHOL PREVENTION: LDL CHOL-CHILD/ADOLESCENTS* DESIRABLE: <130 MG/DL <110 MG/DL BORDERLINE-HIGH RISK: 130- 159 MG/DL 110-129 MG/DL HIGH RISK: >160 MG/DL >130 MG/DL *CHILDREN AND ADOLESCENTS REPRESENTS INDIVIDUALA AGED 2-19 YEARS EXCLUSIVE. MXD% 9.5 % 0.1-24.0 [facility] ([facility] NORMAL RANGES Age WBC RBC HGB HCT MCV PLT Adult M 4.1-10.9 4.20-6.30 12.0-18.0 37.0-51.0 80-97 140-440 Adult F 4.1-10.9 4.04-5.48 12.0-18.0 37.0-51.0 80-97 140-440 0 -1 Yr 5.0-20.0 3.9-5.9 15-18 MV: 44 MV: 91 MV: 277 2-9 Yr. 6.0-17.0 3.8-5.4 11-13 MV: 37 MV: 78 MV: 300 10 Yrs. 5.0-13.0 3.8-5.4 12-15 MV: 39 MV: 80 MV: 250 NOTE: * FOR ADULT BLACK MALES AND FEMALES, NORMAL WBC IS 2.9-7.7 K/ML * FOR ADULT BLACK MALES AND FEMALES, NORMAL RBC,HGB, AND HCT IS 5% LESS SOURCE FOR DATA: 23press 1800 OPERATION MANUAL( AUTOMATED BLOOD COUNTS AND DIFF.) APPENDIX B-3 CHRONIC KIDNEY DISEASE STAGING PER NKF: MALE GFR INTERPRETATION: 20-49 YRS: >60 mL/min Normal 50-59 YRS: >56 mL/min Normal 60-69 YRS: >49 mL/min Normal 70-79 YRS: >42 mL/min Normal 80 and above >35 mL/min Normal FEMALE GRF INTERPRETATION: 20-39 YRS: >60 mL/min Normal 40-49 YRS: >58 mL/min Normal 50-59 YRS: >51 mL/min Normal 60-69 YRS: >45 mL/min Normal 70-79 YRS: >39 mL/min Normal 80 and above >32 mL/min NormalCLASSIFICATION CHOLESTEROL FOR ADULTS CHILDREN/ADOLESCENTS* DESIRABLE: <200 MG/DL <170 MG/DL BORDER-LINE HIGH RISK: 200-239 MG/DL 170-199 MG/DL HIGH RISK: >240 MG/DL >200 MG/DL CLASS. FOR PRIMARY LDL CHOL PREVENTION: LDL CHOL-CHILD/ADOLESCENTS* DESIRABLE: <130 MG/DL <110 MG/DL BORDERLINE-HIGH RISK: 130- 159 MG/DL 110-129 MG/DL HIGH RISK: >160 MG/DL >130 MG/DL *CHILDREN AND ADOLESCENTS REPRESENTS INDIVIDUALA AGED 2-19 YEARS EXCLUSIVE. Lym% 29.1 % 10.0-58.5 [facility] ([facility] NORMAL RANGES Age WBC RBC HGB HCT MCV PLT Adult M 4.1-10.9 4.20-6.30 12.0-18.0 37.0-51.0 80-97 140-440 Adult F 4.1-10.9 4.04-5.48 12.0-18.0 37.0-51.0 80-97 140-440 0 -1 Yr 5.0-20.0 3.9-5.9 15-18 MV: 44 MV: 91 MV: 277 2-9 Yr. 6.0-17.0 3.8-5.4 11-13 MV: 37 MV: 78 MV: 300 10 Yrs. 5.0-13.0 3.8-5.4 12-15 MV: 39 MV: 80 MV: 250 NOTE: * FOR ADULT BLACK MALES AND FEMALES, NORMAL WBC IS 2.9-7.7 K/ML * FOR ADULT BLACK MALES AND FEMALES, NORMAL RBC,HGB, AND HCT IS 5% LESS SOURCE FOR DATA: 23press 1800 OPERATION MANUAL( AUTOMATED BLOOD COUNTS AND DIFF.) APPENDIX B-3 CHRONIC KIDNEY DISEASE STAGING PER NKF: MALE GFR INTERPRETATION: 20-49 YRS: >60 mL/min Normal 50-59 YRS: >56 mL/min Normal 60-69 YRS: >49 mL/min Normal 70-79 YRS: >42 mL/min Normal 80 and above >35 mL/min Normal FEMALE GRF INTERPRETATION: 20-39 YRS: >60 mL/min Normal 40-49 YRS: >58 mL/min Normal 50-59 YRS: >51 mL/min Normal 60-69 YRS: >45 mL/min Normal 70-79 YRS: >39 mL/min Normal 80 and above >32 mL/min NormalCLASSIFICATION CHOLESTEROL FOR ADULTS CHILDREN/ADOLESCENTS* DESIRABLE: <200 MG/DL <170 MG/DL BORDER-LINE HIGH RISK: 200-239 MG/DL 170-199 MG/DL HIGH RISK: >240 MG/DL >200 MG/DL CLASS. FOR PRIMARY LDL CHOL PREVENTION: LDL CHOL-CHILD/ADOLESCENTS* DESIRABLE: <130 MG/DL <110 MG/DL BORDERLINE-HIGH RISK: 130- 159 MG/DL 110-129 MG/DL HIGH RISK: >160 MG/DL >130 MG/DL *CHILDREN AND ADOLESCENTS REPRESENTS INDIVIDUALA AGED 2-19 YEARS EXCLUSIVE. MXD# 1.1 10E3/uL 0.0-1.8 [facility] ([facility] NORMAL RANGES Age WBC RBC HGB HCT MCV PLT Adult M 4.1-10.9 4.20-6.30 12.0-18.0 37.0-51.0 80-97 140-440 Adult F 4.1-10.9 4.04-5.48 12.0-18.0 37.0-51.0 80-97 140-440 0 -1 Yr 5.0-20.0 3.9-5.9 15-18 MV: 44 MV: 91 MV: 277 2-9 Yr. 6.0-17.0 3.8-5.4 11-13 MV: 37 MV: 78 MV: 300 10 Yrs. 5.0-13.0 3.8-5.4 12-15 MV: 39 MV: 80 MV: 250 NOTE: * FOR ADULT BLACK MALES AND FEMALES, NORMAL WBC IS 2.9-7.7 K/ML * FOR ADULT BLACK MALES AND FEMALES, NORMAL RBC,HGB, AND HCT IS 5% LESS SOURCE FOR DATA: 23press 1800 OPERATION MANUAL( AUTOMATED BLOOD COUNTS AND DIFF.) APPENDIX B-3 CHRONIC KIDNEY DISEASE STAGING PER NKF: MALE GFR INTERPRETATION: 20-49 YRS: >60 mL/min Normal 50-59 YRS: >56 mL/min Normal 60-69 YRS: >49 mL/min Normal 70-79 YRS: >42 mL/min Normal 80 and above >35 mL/min Normal FEMALE GRF INTERPRETATION: 20-39 YRS: >60 mL/min Normal 40-49 YRS: >58 mL/min Normal 50-59 YRS: >51 mL/min Normal 60-69 YRS: >45 mL/min Normal 70-79 YRS: >39 mL/min Normal 80 and above >32 mL/min NormalCLASSIFICATION CHOLESTEROL FOR ADULTS CHILDREN/ADOLESCENTS* DESIRABLE: <200 MG/DL <170 MG/DL BORDER-LINE HIGH RISK: 200-239 MG/DL 170-199 MG/DL HIGH RISK: >240 MG/DL >200 MG/DL CLASS. FOR PRIMARY LDL CHOL PREVENTION: LDL CHOL-CHILD/ADOLESCENTS* DESIRABLE: <130 MG/DL <110 MG/DL BORDERLINE-HIGH RISK: 130- 159 MG/DL 110-129 MG/DL HIGH RISK: >160 MG/DL >130 MG/DL *CHILDREN AND ADOLESCENTS REPRESENTS INDIVIDUALA AGED 2-19 YEARS EXCLUSIVE. Lym# 3.2 10E3/uL 0.6-4.1 [facility] ([facility] NORMAL RANGES Age WBC RBC HGB HCT MCV PLT Adult M 4.1-10.9 4.20-6.30 12.0-18.0 37.0-51.0 80-97 140-440 Adult F 4.1-10.9 4.04-5.48 12.0-18.0 37.0-51.0 80-97 140-440 0 -1 Yr 5.0-20.0 3.9-5.9 15-18 MV: 44 MV: 91 MV: 277 2-9 Yr. 6.0-17.0 3.8-5.4 11-13 MV: 37 MV: 78 MV: 300 10 Yrs. 5.0-13.0 3.8-5.4 12-15 MV: 39 MV: 80 MV: 250 NOTE: * FOR ADULT BLACK MALES AND FEMALES, NORMAL WBC IS 2.9-7.7 K/ML * FOR ADULT BLACK MALES AND FEMALES, NORMAL RBC,HGB, AND HCT IS 5% LESS SOURCE FOR DATA: 23press 1800 OPERATION MANUAL( AUTOMATED BLOOD COUNTS AND DIFF.) APPENDIX B-3 CHRONIC KIDNEY DISEASE STAGING PER NKF: MALE GFR INTERPRETATION: 20-49 YRS: >60 mL/min Normal 50-59 YRS: >56 mL/min Normal 60-69 YRS: >49 mL/min Normal 70-79 YRS: >42 mL/min Normal 80 and above >35 mL/min Normal FEMALE GRF INTERPRETATION: 20-39 YRS: >60 mL/min Normal 40-49 YRS: >58 mL/min Normal 50-59 YRS: >51 mL/min Normal 60-69 YRS: >45 mL/min Normal 70-79 YRS: >39 mL/min Normal 80 and above >32 mL/min NormalCLASSIFICATION CHOLESTEROL FOR ADULTS CHILDREN/ADOLESCENTS* DESIRABLE: <200 MG/DL <170 MG/DL BORDER-LINE HIGH RISK: 200-239 MG/DL 170-199 MG/DL HIGH RISK: >240 MG/DL >200 MG/DL CLASS. FOR PRIMARY LDL CHOL PREVENTION: LDL CHOL-CHILD/ADOLESCENTS* DESIRABLE: <130 MG/DL <110 MG/DL BORDERLINE-HIGH RISK: 130- 159 MG/DL 110-129 MG/DL HIGH RISK: >160 MG/DL >130 MG/DL *CHILDREN AND ADOLESCENTS REPRESENTS INDIVIDUALA AGED 2-19 YEARS EXCLUSIVE. Neut# 6.8 % 2.0-7.8 [facility] ([facility] NORMAL RANGES Age WBC RBC HGB HCT MCV PLT Adult M 4.1-10.9 4.20-6.30 12.0-18.0 37.0-51.0 80-97 140-440 Adult F 4.1-10.9 4.04-5.48 12.0-18.0 37.0-51.0 80-97 140-440 0 -1 Yr 5.0-20.0 3.9-5.9 15-18 MV: 44 MV: 91 MV: 277 2-9 Yr. 6.0-17.0 3.8-5.4 11-13 MV: 37 MV: 78 MV: 300 10 Yrs. 5.0-13.0 3.8-5.4 12-15 MV: 39 MV: 80 MV: 250 NOTE: * FOR ADULT BLACK MALES AND FEMALES, NORMAL WBC IS 2.9-7.7 K/ML * FOR ADULT BLACK MALES AND FEMALES, NORMAL RBC,HGB, AND HCT IS 5% LESS SOURCE FOR DATA: 23press 1800 OPERATION MANUAL( AUTOMATED BLOOD COUNTS AND DIFF.) APPENDIX B-3 CHRONIC KIDNEY DISEASE STAGING PER NKF: MALE GFR INTERPRETATION: 20-49 YRS: >60 mL/min Normal 50-59 YRS: >56 mL/min Normal 60-69 YRS: >49 mL/min Normal 70-79 YRS: >42 mL/min Normal 80 and above >35 mL/min Normal FEMALE GRF INTERPRETATION: 20-39 YRS: >60 mL/min Normal 40-49 YRS: >58 mL/min Normal 50-59 YRS: >51 mL/min Normal 60-69 YRS: >45 mL/min Normal 70-79 YRS: >39 mL/min Normal 80 and above >32 mL/min NormalCLASSIFICATION CHOLESTEROL FOR ADULTS CHILDREN/ADOLESCENTS* DESIRABLE: <200 MG/DL <170 MG/DL BORDER-LINE HIGH RISK: 200-239 MG/DL 170-199 MG/DL HIGH RISK: >240 MG/DL >200 MG/DL CLASS. FOR PRIMARY LDL CHOL PREVENTION: LDL CHOL-CHILD/ADOLESCENTS* DESIRABLE: <130 MG/DL <110 MG/DL BORDERLINE-HIGH RISK: 130- 159 MG/DL 110-129 MG/DL HIGH RISK: >160 MG/DL >130 MG/DL *CHILDREN AND ADOLESCENTS REPRESENTS INDIVIDUALA AGED 2-19 YEARS EXCLUSIVE. MPV 11.2 fL 9.0-13.0 [facility] ([facility] NORMAL RANGES Age WBC RBC HGB HCT MCV PLT Adult M 4.1-10.9 4.20-6.30 12.0-18.0 37.0-51.0 80-97 140-440 Adult F 4.1-10.9 4.04-5.48 12.0-18.0 37.0-51.0 80-97 140-440 0 -1 Yr 5.0-20.0 3.9-5.9 15-18 MV: 44 MV: 91 MV: 277 2-9 Yr. 6.0-17.0 3.8-5.4 11-13 MV: 37 MV: 78 MV: 300 10 Yrs. 5.0-13.0 3.8-5.4 12-15 MV: 39 MV: 80 MV: 250 NOTE: * FOR ADULT BLACK MALES AND FEMALES, NORMAL WBC IS 2.9-7.7 K/ML * FOR ADULT BLACK MALES AND FEMALES, NORMAL RBC,HGB, AND HCT IS 5% LESS SOURCE FOR DATA: 23press 1800 OPERATION MANUAL( AUTOMATED BLOOD COUNTS AND DIFF.) APPENDIX B-3 CHRONIC KIDNEY DISEASE STAGING PER NKF: MALE GFR INTERPRETATION: 20-49 YRS: >60 mL/min Normal 50-59 YRS: >56 mL/min Normal 60-69 YRS: >49 mL/min Normal 70-79 YRS: >42 mL/min Normal 80 and above >35 mL/min Normal FEMALE GRF INTERPRETATION: 20-39 YRS: >60 mL/min Normal 40-49 YRS: >58 mL/min Normal 50-59 YRS: >51 mL/min Normal 60-69 YRS: >45 mL/min Normal 70-79 YRS: >39 mL/min Normal 80 and above >32 mL/min NormalCLASSIFICATION CHOLESTEROL FOR ADULTS CHILDREN/ADOLESCENTS* DESIRABLE: <200 MG/DL <170 MG/DL BORDER-LINE HIGH RISK: 200-239 MG/DL 170-199 MG/DL HIGH RISK: >240 MG/DL >200 MG/DL CLASS. FOR PRIMARY LDL CHOL PREVENTION: LDL CHOL-CHILD/ADOLESCENTS* DESIRABLE: <130 MG/DL <110 MG/DL BORDERLINE-HIGH RISK: 130- 159 MG/DL 110-129 MG/DL HIGH RISK: >160 MG/DL >130 MG/DL *CHILDREN AND ADOLESCENTS REPRESENTS INDIVIDUALA AGED 2-19 YEARS EXCLUSIVE. Procedure Social History Code Duration Value Status Description Data Source(s ) Smoking 03/09/2021 12:00:00 AM EDT Patient is a former smoker completed Patient is a former smoker [facility] ([facility]) Smoking 01/23/2021 09:04:48 AM EDT Ex-smoker (finding) complet ed Ex-smoker (finding) [place] ([facility]) Smoking 12/20/2020 12:00:00 AM EDT Patient is a former smoker completed Patient is a former smoker [facility] ([facility], [facility]) Alcohol intake 12/15/2020 12:00:00 AM EDT Current drinker of al cohol (finding) completed Current drinker of alcohol (finding) [facility] Tobacco use and exposure 12/15/2020 12:00:00 AM EDT Never used co mpleted Never used [facility] Smoking 12/15/2020 12:00:00 AM EDT Former smoker completed Former smoker [facility] Smoking 12/06/2020 12:00:00 AM EDT Patient is a former smoker completed Patient is a former smoker [facility] ([facility]) Smoking 09/21/2020 03:12:22 PM EDT Ex-smoker (finding) complet ed Ex-smoker (finding) [place] ([facility]) Alcohol intake 09/15/2020 12:00:00 AM EDT Ex-drinker (finding) comp leted Ex- drinker (finding) [facility] Alcohol intake 09/11/2020 12:00:00 AM EDT Not Currently completed [facility] Cigarette pack-years 09/11/2020 12:00:00 AM EDT UNK completed [facility] Cigarettes smoked current (pack per day) - Reported 09/12/19 12:00:00 AM EDT UNK completed [facility] Smoking 09/11/2020 12:00:00 AM EDT Former smoker completed Former smoker [facility] Smoking 08/31/2020 12:00:00 AM EDT Patient is a former smoker completed Patient is a former smoker [facility] ([facility] Smoking 02/21/2020 12:00:00 AM EDT Patient is a former smoker completed Patient is a former smoker [facility] ([facility]) Smoking 02/16/2020 03:29:41 PM EDT Ex-smoker (finding) complet ed Ex-smoker (finding) [place] ([facility]) Vital Signs ID Date Data Source UNK Name Value Range Interpretation Code Description Data Source(s) Body weight 129.00 [lb_av] 129.00 [lb_av] [facility] ([facility] Body weight 58.514 kg 58.514 kg [facility] Body mass index (BMI) [Ratio] 28.9 kg/m2 28.9 k g/m2 [facility] ([facility]) Diastolic blood pressure 80 mm[Hg] 80 mm[Hg] [facility] ([facility]) Heart rate 68 /min 68 /min [facility] ([facility] Body temperature 94.0 [degF] 94.0 [degF] [facility] ([facility]) Body height 56 [in_i] 56 [in_i] [facility] ([facility] 4'8" Systolic blood pressure 120 mm[Hg] 120 mm[Hg] [facility] ([facility]) Systolic blood pressure 130 mm[Hg] 130 mm[Hg] [facility] ([facility]) Diastolic blood pressure 80 mm[Hg] 80 mm[Hg] [facility] ([facility]) Heart rate 72 /min 72 /min [facility] ([facility] Body weight 62.143 kg 62.143 kg [facility] ([facility] Body mass index (BMI) [Ratio] 30.7 kg/m2 30.7 k g/m2 [facility] ([facility]) Body temperature 90.6 [degF] 90.6 [degF] [facility] ([facility]) Body height 56 [in_i] 56 [in_i] [facility] ([facility] 4'8" Body weight 137.00 [lb_av] 137.00 [lb_av] [facility] ([facility]) Systolic blood pressure 120 mm[Hg] 120 mm[Hg] M [facility] ([facility]) Diastolic blood pressure 80 mm[Hg] 80 mm[Hg] [facility] ([facility]) Body temperature 94.6 [degF] 94.6 [degF] [facility] ([facility]) Heart rate 68 /min 68 /min [facility] ([facility] Body weight 122.00 [lb_av] 122.00 [lb_av] [facility] ([facility]) Body height 56 [in_i] 56 [in_i] [facility] ([facility] 4'8" Body mass index (BMI) [Ratio] 27.3 kg/m2 27.3 k g/m2 [facility] ([facility]) Body weight 55.339 kg 55.339 kg [facility] ([facility] Systolic blood pressure 180 mm[Hg] 180 mm[Hg] [facility] ([facility]) Diastolic blood pressure 90 mm[Hg] 90 mm[Hg] [facility] ([facility]) Body temperature 95.8 [degF] 95.8 [degF] [facility] ([facility]) Systolic blood pressure 175 mm[Hg] 175 mm[Hg] M [facility] ([facility], [facility]) Diastolic blood pressure 89 mm[Hg] 89 mm[Hg] [facility] ([facility], [facility]) Heart rate 81 /min 81 /min [facility] ([facility], [facility]) Respiratory rate 13 /min 13 /min [facility] ( [facility], [facility]) Oxygen saturation in Arterial blood by Pulse oximetry 98 % 98 % [facility] ([facility], [facility]) Body temperature 98.2 [degF] 98.2 [degF] [facility] ([facility], [facility]) Body weight 122.00 [lb_av] 122.00 [lb_av] [facility] T ([facility], [facility]) Body height 64 [in_i] 64 [in_i] [facility] ([facility]) 5'4" Body mass index (BMI) [Ratio] 20.9 kg/m2 20.9 k g/m2 [facility] ([facility]) Body weight 55.793 kg 55.793 kg [facility] ([facility]) Body surface area Derived from formula 1.43 m2 1.43 m2 [facility] ([facility]) Systolic blood pressure 112 mm[Hg] 112 mm[Hg] [facility] ([facility]) Diastolic blood pressure 58 mm[Hg] 58 mm[Hg] [facility] ([facility]) Body height 55.5 [in_i] 55.5 [in_i] [facility] ([facility]) 4'7.50" Body weight 123.00 [lb_av] 123.00 [lb_av] [facility] ([facility]) Body mass index (BMI) [Ratio] 28.1 kg/m2 28.1 k g/m2 [facility] ([facility]) [place] body weight 100 [lb_av] 100 [lb_av] [facility] ([facility]) Diastolic blood pressure 53 mm[Hg] 53 mm[Hg] [facility] ([facility], [facility]) Systolic blood pressure 93 mm[Hg] 93 mm[Hg] [facility] ([facility], [facility]) Heart rate 77 /min 77 /min [facility] ([facility], [facility]) Respiratory rate 15 /min 15 /min [facility] ( [facility], [facility]) Oxygen saturation in Arterial blood by Pulse oximetry 97 % 97 % [facility] ([facility], [facility]) Body temperature 98.4 [degF] 98.4 [degF] [facility] ([facility], [facility]) Body weight 122.00 [lb_av] 122.00 [lb_av] [facility] ([facility], [facility]) Body height 54 [in_i] 54 [in_i] [facility] ([facility]) 4'6" Body mass index (BMI) [Ratio] 29.4 kg/m2 29.4 k g/m2 [facility] ([facility], [facility]) Diastolic blood pressure 78 mm[Hg] 78 mm[Hg] [facility] ([facility] Body temperature 98.3 [degF] 98.3 [degF] [facility] ([facility] Body mass index (BMI) [Ratio] 27.8 kg/m2 27.8 k g/m2 [facility] ([facility] Oxygen saturation in Arterial blood by Pulse oximetry 96 % 96 % [facility] ([facility] Systolic blood pressure 138 mm[Hg] 138 mm[Hg] [facility] ([facility] Heart rate 92 /min 92 /min [facility] ([facility] Respiratory rate 16 /min 16 /min [facility] ( [facility] Body height 55.50 [in_i] 55.50 [in_i] [facility] ([facility] 4'7.50" Body weight 122.00 [lb_av] 122.00 [lb_av] [facility] ([facility] [place] body weight 100 [lb_av] 100 [lb_av] [facility] ([facility] Diastolic blood pressure--sitting 80 mm[Hg] 80 mm[Hg] [facility] ([facility]) CBP, adult cuff/Ra Body weight 131.00 [lb_av] 131.00 [lb_av] [facility] ([facility]) Body height 56 [in_i] 56 [in_i] [facility] 4'8" Body mass index (BMI) [Ratio] 29.4 kg/m2 29.4 k g/m2 [facility] ([facility]) Heart rate 87 /min 87 /min [facility] ([facility]) Systolic blood pressure--sitting 173 mm[Hg] 173 mm[Hg] [facility] ([facility]) CBP, adult cuff/Ra Systolic blood pressure 133 mm[Hg] 133 mm[Hg] M [facility] ([facility], [facility]) Diastolic blood pressure 55 mm[Hg] 55 mm[Hg] [facility] ([facility], [facility]) Heart rate 62 /min 62 /min [facility] ([facility], [facility]) Respiratory rate 13 /min 13 /min [facility] ( [facility], [facility]) Oxygen saturation in Arterial blood by Pulse oximetry 98 % 98 % [facility] ([facility], [facility]) Body temperature 97.0 [degF] 97.0 [degF] [facility] ([facility], [facility]) Body weight 125.00 [lb_av] 125.00 [lb_av] [facility] T ([facility], [facility]) Body height 54 [in_i] 54 [in_i] [facility] ([facility], [facility]) 4'6" Body mass index (BMI) [Ratio] 30.1 kg/m2 30.1 k g/m2 [facility] ([facility], [facility]) Body height 55 [in_i] 55 [in_i] MEDENT ([facility] ) 4'7" Body weight 122.00 [lb_av] 122.00 [lb_av] MEDEN T ([facility] ) Body mass index (BMI) [Ratio] 28.4 kg/m2 28.4 k g/m2 MEDENT ([facility] ) Body temperature 95.9 [degF] 95.9 [degF] MEDENT ([facility]) Diastolic blood pressure 60 mm[Hg] 60 mm[Hg] MEDENT ([facility]) Systolic blood pressure 118 mm[Hg] 118 mm[Hg] M EDENT ([facility]) Body weight 120.00 [lb_av] 120.00 [lb_av] MEDEN T ([facility]) Body mass index (BMI) [Ratio] 27.9 kg/m2 27.9 k g/m2 MEDENT ([facility]) Body height 55 [in_i] 55 [in_i] MEDENT ([facility] 4'7" Body weight 54.432 kg 54.432 kg MEDENT ([facility]) Body temperature 96.8 [degF] 96.8 [degF] MEDENT ([facility]) Body weight 122.00 [lb_av] 122.00 [lb_av] MEDEN T ([facility]) Body mass index (BMI) [Ratio] 28.4 kg/m2 28.4 k g/m2 MEDENT ([facility]) Body height 55 [in_i] 55 [in_i] MEDENT ([facility]) 4'7" Systolic blood pressure 120 mm[Hg] 120 mm[Hg] M EDENT ([facility]) Diastolic blood pressure 60 mm[Hg] 60 mm[Hg] MEDENT ([facility]) Heart rate 62 /min 62 /min [facility] ([facility]) Body temperature 94.4 [degF] 94.4 [degF] MEDENT ([facility]) Body weight 121.00 [lb_av] 121.00 [lb_av] MEDEN T ([facility]) Body weight 54.886 kg 54.886 kg MEDENT ([facility]) Systolic blood pressure 116 mm[Hg] 116 mm[Hg] M EDENT ([facility]) Diastolic blood pressure 60 mm[Hg] 60 mm[Hg] MEDENT ([facility]) Heart rate 64 /min 64 /min MEDENT ([facility]) Respiratory rate 16 /min 16 /min MEDENT ( [facility]) Oxygen saturation in Arterial blood by Pulse oximetry 99 % 99 % MEDENT ([facility], [facility]) Body temperature 97.0 [degF] 97.0 [degF] MEDENT ([facility], [facility]) Body weight 125.00 [lb_av] 125.00 [lb_av] MEDEN T ([facility], [facility]) Body height 54 [in_i] 54 [in_i] MEDENT ([facility], [facility]) 4'6" Body mass index (BMI) [Ratio] 30.1 kg/m2 30.1 k g/m2 [facility] ([facility], [facility]) Systolic blood pressure 130 mm[Hg] 130 mm[Hg] [facility] Diastolic blood pressure 60 mm[Hg] 60 mm[Hg] [facility] Heart rate 101 /min 101 /min [facility] Respiratory rate 17 /min 17 /min [facility] Heart rate 101 /min 101 /min [facility] ([facility] Respiratory rate 17 /min 17 /min [facility] ( [facility]) Body temperature 36.67 Gagan 36.67 Gagan [facility] Oxygen saturation in Arterial blood by Pulse oximetry 100 % 100 % [facility] Body temperature 98.0 [degF] 98.0 [degF] [facility] ([facility]) Oxygen saturation in Arterial blood by Pulse oximetry 100 % 100 % [facility] ([facility]) Diastolic blood pressure 83 mm[Hg] 83 mm[Hg] [facility] Systolic blood pressure 138 mm[Hg] 138 mm[Hg] [facility] Heart rate 77 /min 77 /min [facility] Body temperature 35.61 Gagan 35.61 Gagan [facility] Respiratory rate 18 /min 18 /min [facility] Body height 137.2 cm 137.2 cm [facility] Body weight 54.432 kg 54.432 kg [facility] Body mass index (BMI) [Ratio] 28.93 kg/m2 28.93 kg/m2 [facility] Oxygen saturation in Arterial blood by Pulse oximetry 100 % 100 % [facility] Body mass index (BMI) [Ratio] 28.1 kg/m2 28.1 k g/m2 [facility] ([facility] Body temperature 97.6 [degF] 97.6 [degF] [facility] ([facility] Oxygen saturation in Arterial blood by Pulse oximetry 98 % 98 % [facility] ([facility] Systolic blood pressure 124 mm[Hg] 124 mm[Hg] M EDENT ([facility] Diastolic blood pressure 60 mm[Hg] 60 mm[Hg] [facility] ([facility] Heart rate 96 /min 96 /min [facility] ([facility] Respiratory rate 16 /min 16 /min [facility] ( [facility] Body height 55.50 [in_i] 55.50 [in_i] [facility] ([facility] 4'7.50" Body weight 123.00 [lb_av] 123.00 [lb_av] MEDEN T ([facility] [place] body weight 100 [lb_av] 100 [lb_av] MED[facility] T ([facility] Oxygen saturation in Arterial blood by Pulse oximetry 96 % 96 % [facility] ([facility] Body temperature 97.8 [degF] 97.8 [degF] [facility] ([facility] Heart rate 92 /min 92 /min [facility] ([facility] Systolic blood pressure 108 mm[Hg] 108 mm[Hg] M EDENT ([facility] Respiratory rate 16 /min 16 /min [facility] ( [facility] Body height 55.50 [in_i] 55.50 [in_i] [facility] ([facility] 4'7.50" Body weight 125.00 [lb_av] 125.00 [lb_av] MEDEN T ([facility] [place] body weight 100 [lb_av] 100 [lb_av] MED[facility] T ([facility] Body mass index (BMI) [Ratio] 28.5 kg/m2 28.5 k g/m2 [facility] ([facility] Diastolic blood pressure 68 mm[Hg] 68 mm[Hg] [facility] ([facility] Systolic blood pressure 136 mm[Hg] 136 mm[Hg] M EDENT ([facility] Diastolic blood pressure 70 mm[Hg] 70 mm[Hg] [facility] ([facility] Body temperature 97.2 [degF] 97.2 [degF] [facility] ([facility] Heart rate 88 /min 88 /min [facility] ([facility] Respiratory rate 16 /min 16 /min [facility] ( [facility] [place] body weight 100 [lb_av] 100 [lb_av] MEDEN T ([facility] Body mass index (BMI) [Ratio] 29.0 kg/m2 29.0 k g/m2 [facility] ([facility] Oxygen saturation in Arterial blood by Pulse oximetry 98 % 98 % [facility] ([facility] Body height 55.50 [in_i] 55.50 [in_i] [facility] ([facility] 4'7.50" Body weight 127.00 [lb_av] 127.00 [lb_av] MEDEN T ([facility] Systolic blood pressure 142 mm[Hg] 142 mm[Hg] M EDENT ([facility], ) Diastolic blood pressure 72 mm[Hg] 72 mm[Hg] [facility] ([facility], ) Body height 55.5 [in_i] 55.5 [in_i] [facility] ([facility], ) 4'7.50" Body weight 131.00 [lb_av] 131.00 [lb_av] MEDEN T ([facility], ) Body mass index (BMI) [Ratio] 29.9 kg/m2 29.9 k g/m2 [facility] ([facility]) [place] body weight 100 [lb_av] 100 [lb_av] MED[facility] T ([facility]) Body weight 59.422 kg 59.422 kg [facility] ([facility]) Body surface area Derived from formula 1.47 m2 1.47 m2 [facility] ([facility]) Body height 55.5 [in_i] 55.5 [in_i] [facility] ([facility]) 4'7.50" Body weight 131.00 [lb_av] 131.00 [lb_av] MEDEN T ([facility]) Body mass index (BMI) [Ratio] 29.9 kg/m2 29.9 k g/m2 [facility] ([facility]) [place] body weight 100 [lb_av] 100 [lb_av] MEDEN T ([facility]) Body weight 59.422 kg 59.422 kg [facility] ([facility]) Body surface area Derived from formula 1.47 m2 1.47 m2 [facility] ([facility]) Body weight 131.00 [lb_av] 131.00 [lb_av] MEDEN T ([facility]) Body height 56 [in_i] 56 [in_i] [facility] ([facility]) 4'8" Body mass index (BMI) [Ratio] 29.4 kg/m2 29.4 k g/m2 [facility] ([facility]) Heart rate 79 /min 79 /min [facility] ([facility]) Systolic blood pressure--sitting 147 mm[Hg] 147 mm[Hg] [facility] ([facility]) CBP, adult cuff/LA Diastolic blood pressure--sitting 70 mm[Hg] 70 mm[Hg] [facility] ([facility]) CBP, adult cuff/LA Diastolic blood pressure 72 mm[Hg] 72 mm[Hg] [facility] ([facility] Body temperature 97.6 [degF] 97.6 [degF] [facility] ([facility] [place] body weight 100 [lb_av] 100 [lb_av] MEDEN T ([facility] Oxygen saturation in Arterial blood by Pulse oximetry 97 % 97 % [facility] ([facility] Systolic blood pressure 118 mm[Hg] 118 mm[Hg] M EDENT ([facility] Heart rate 72 /min 72 /min [facility] ([facility] Respiratory rate 18 /min 18 /min [facility] ( [facility] Body height 55.50 [in_i] 55.50 [in_i] [facility] ([facility] 4'7.50" Body weight 135.00 [lb_av] 135.00 [lb_av] MEDEN T ([facility] Body mass index (BMI) [Ratio] 30.8 kg/m2 30.8 k g/m2 [facility] ([facility] Systolic blood pressure 130 mm[Hg] 130 mm[Hg] M EDENT ([facility]) Diastolic blood pressure 80 mm[Hg] 80 mm[Hg] [facility] ([facility]) Systolic blood pressure 130 mm[Hg] 130 mm[Hg] M EDENT ([facility]) Diastolic blood pressure 80 mm[Hg] 80 mm[Hg] [facility] ([facility]) Body height 55 [in_i] 55 [in_i] [facility] ([facility]) 4'7" Body weight 140.00 [lb_av] 140.00 [lb_av] MEDEN T ([facility]) Body weight 63.504 kg 63.504 kg [facility] ([facility]) Body mass index (BMI) [Ratio] 32.5 kg/m2 32.5 k g/m2 [facility] ([facility]) Systolic blood pressure 140 mm[Hg] 140 mm[Hg] M EDENT ([facility], ) Diastolic blood pressure 72 mm[Hg] 72 mm[Hg] [facility] ([facility], ) Body height 55.5 [in_i] 55.5 [in_i] [facility] ([facility], ) 4'7.50" Body weight 143.00 [lb_av] 143.00 [lb_av] MEDEN T ([facility]) Body mass index (BMI) [Ratio] 32.6 kg/m2 32.6 k g/m2 [facility] ([facility]) [place] body weight 100 [lb_av] 100 [lb_av] [facility] Body weight 64.865 kg 64.865 kg [facility] ([facility]) Body surface area Derived from formula 1.53 m2 1.53 m2 [facility] ([facility]) Body mass index (BMI) [Ratio] 31.8 kg/m2 31.8 k g/m2 [facility] ([facility]) Body weight 64.411 kg 64.411 kg [facility] ([facility]) Systolic blood pressure 130 mm[Hg] 130 mm[Hg] [facility] Diastolic blood pressure 60 mm[Hg] 60 mm[Hg] [facility] ([facility]) Body height 56 [in_i] 56 [in_i] [facility] ([facility]) 4'8" Body weight 142.00 [lb_av] 142.00 [lb_av] [facility] [place] body weight 100 [lb_av] 100 [lb_av] [facility] Systolic blood pressure 137 mm[Hg] 137 mm[Hg] [facility], [facility]) Diastolic blood pressure 82 mm[Hg] 82 mm[Hg] [facility] ([facility], [facility]) Heart rate 107 /min 107 /min [facility] ([facility], [facility]) Respiratory rate 12 /min 12 /min [facility] ( [facility], [facility]) Oxygen saturation in Arterial blood by Pulse oximetry 97 % 97 % [facility] ([facility], [facility]) Body temperature 98.8 [degF] 98.8 [degF] [facility] ([facility], [facility]) Body weight 140.00 [lb_av] 140.00 [lb_av] MEDEN T ([facility], [facility]) Body height 55 [in_i] 55 [in_i] [facility] ([facility], [facility]) 4'7" Body mass index (BMI) [Ratio] 32.5 kg/m2 32.5 k g/m2 [facility] ([facility], [facility]) Systolic blood pressure 104 mm[Hg] 104 mm[Hg] M EDENT ([facility]) Diastolic blood pressure 72 mm[Hg] 72 mm[Hg] [facility] ([facility]) Body mass index (BMI) [Ratio] 32.2 kg/m2 32.2 k g/m2 [facility] ([facility] Heart rate 90 /min 90 /min [facility] ([facility] Respiratory rate 16 /min 16 /min [facility] ( [facility] Systolic blood pressure 140 mm[Hg] 140 mm[Hg] M EDENT ([facility] Diastolic blood pressure 90 mm[Hg] 90 mm[Hg] [facility] ([facility] Body temperature 97.7 [degF] 97.7 [degF] [facility] ([facility] Body height 55.50 [in_i] 55.50 [in_i] [facility] ([facility] 4'7.50" Body weight 141.00 [lb_av] 141.00 [lb_av] MEDEN T ([facility] [place] body weight 100 [lb_av] 100 [lb_av] MEDEN T ([facility] Oxygen saturation in Arterial blood by Pulse oximetry 97 % 97 % MEDERIKA ([facility] ([facility]), (Room [facility]) ID Date Data Source [id number] 03/16/2021 10:39:00 AM EDT [facility] Name Value Range Interpretation Code Description Data Source(s) WEIGHT 57 kilos [address] [facility] HEIGHT 139.7 centimeters 139.7 centimeters [facility] WEIGHT 58.8 kilos 58[address] [facility] HEIGHT 139.7 centimeters 139.[address] [facility] WEIGHT 59.6 kilos [address] [facility] HEIGHT 139.7 centimeters 139.7 centimeters [facility] WEIGHT 60.6 kilos 60.6 [facility] HEIGHT 139.7 centimeters 139.7 centimeters [facility] WEIGHT 63.1 kilos 63.1 [facility] HEIGHT 139.7 centimeters 139.7 centimeters [facility] WEIGHT 60.2 kilos 60.2 [facility] HEIGHT 139.7 centimeters 139.[address] [facility] WEIGHT 55.7 kilos 55.7 [facility] HEIGHT 121.92 centimeters 121.92 centimeter [facility] WEIGHT 53.3 kilos 53.3 [facility] HEIGHT 139.7 centimeters 139.[address] [facility] WEIGHT 54.2 kilos 54.2 [facility] HEIGHT 139.7 centimeters 139.[address] [facility] WEIGHT 55.5 kilos 55.5 [facility] HEIGHT 139.7 centimeters 139.[address] [facility] Patient Treatment Plan of Care Planned Activity Planned Date Details Description Data Source (s) Xalatan 0.005 % 03/15/2021 01:00:00 AM EDT [facility]) B-12 500 MCG 03/15/2021 01:00:00 AM EDT N [facility] ([facility]) Insulin Aspart 100 UNIT/ML 03/15/2021 01:00:00 AM EDT [facility] ([facility]) Nitroglycerin 0.4 MG 03/15/2021 01:00:00 AM EDT [facility] ([facility]) Metoprolol Succinate ER 25 MG 03/15/2021 01:00:00 AM EDT [facility] Memantine HCl 10 MG 03/15/2021 01:00:00 AM EDT [facility]) Levothyroxine Sodium 50 MCG 03/15/2021 01:00:00 AM EDT [facility]) Ferrous Gluconate 324 (38 Fe) MG 03/15/2021 01:00:00 AM EDT [facility]) Gabapentin 400 MG 03/15/2021 01:00:00 AM EDT [facility]) Furosemide 20 MG 03/15/2021 01:00:00 AM EDT [facility]) Esomeprazole Magnesium 40 MG 03/15/2021 01:00:00 AM EDT [facility] ([facility]) Multivitamin 03/15/2021 01:00:00 AM ED[facility] DULoxetine HCl 30 MG 03/15/2021 01:00:00 AM EDT [facility] ([facility]) Clopidogrel Bisulfate 75 MG 03/15/2021 01:00:00 AM EDT [facility]) Atorvastatin Calcium 10 MG 03/15/2021 01:00:00 AM EDT [facility] ([facility]) Allopurinol 100 MG 03/15/2021 01:00:00 AM EDT [facility]) TiZANidine HCl 2 MG 03/15/2021 01:00:00 AM EDT [facility]) Lantus SoloStar 100 UNIT/ML 03/15/2021 01:00:00 AM EDT [facility]) Sucralfate 1 GM/10ML 03/15/2021 01:00:00 AM EDT [facility] ([facility]) Docusate Sodium 100 MG 03/15/2021 01:00:00 AM EDT [facility] ([facility]) Magnesium Oxide (Elemental) 400 MG 03/15/2021 01:00:00 AM EDT [facility] ([facility]) Antacid Ultra Strength 1000-200 MG 03/15/2021 01:00:00 AM EDT [facility]) K-Tab 10 MEQ 03/15/2021 01:00:00 AM EDT [facility]) Acetaminophen 325 MG 03/15/2021 01:00:00 AM EDT [facility] ([facility]) Aspirin EC 81 MG 03/15/2021 01:00:00 AM EDT [facility]) Ipratropium-Albuterol 0.5-2.5 (3) MG/3ML 03/15/2021 01:00:00 AM EDT [facility]) 24 HR metoprolol succinate 25 MG Extended Release Oral Tablet 12/06/2020 12:00:00 AM [facility] ospital Docusate Sodium 100 MG Oral Capsule 12/05/2020 12:00:00 AM EDT [facility] BD Pen Needle Mini U/F 31G X 5 MM 12/05/2020 12:00:00 AM EDT [facility] latanoprost 0.05 MG/ML Ophthalmic Solution 09/21/2020 12:00:00 AM E DT [place] ([facility]) latanoprost 0.05 MG/ML Ophthalmic Solution 09/21/2020 12:00:00 AM E DT [facility] Insulin Lispro 100 UNT/ML Injectable Solution 09/17/2020 08:00:00 A M EDT [facility] clopidogrel 75 MG Oral Tablet 09/17/2020 12:00:00 AM EDT [facility] Acetaminophen 325 MG / Hydrocodone Bitartrate 5 MG Ora l Tablet 09/16/2020 12:00:00 AM EDT [facility] Bisacodyl 5 MG Delayed Release Oral Tablet 09/15/2020 09:26:40 PM E DT [facility] POLYETHYLENE GLYCOL 3350 142 MG/ML Oral Solution 09/15/2020 09:26:3 4 PM EDT [facility] Hydralazine Hydrochloride 10 MG Oral Tablet 09/15/2020 09:23:37 PM EDT [facility] fentaNYL Citrate (PF) (SUBLIMAZE) injection 25 mcg 09/15/2020 06 :29:21 PM EDT [facility] ondansetron (ZOFRAN) injection 4 mg 09/15/2020 06:27:33 PM EDT [facility] 2 ML Metoclopramide 5 MG/ML Prefilled Syringe 09/15/2020 06:27:33 P M EDT [facility] Acetaminophen 325 MG Oral Tablet 09/15/2020 06:27:29 PM EDT [facility] Nitroglycerin 0.4 MG Sublingual Tablet 09/15/2020 06:24:49 PM EDT [facility] Mupirocin 0.02 MG/MG Topical Ointment 09/13/2020 12:00:00 AM EDT [facility] Spironolactone 25 MG Oral Tablet 07/27/2020 12:00:00 AM [facility] Brimonidine tartrate 2 MG/ML Ophthalmic Solution 06/28/2020 12:00:0 0 AM EST [place] ([facility]) Brimonidine tartrate 2 MG/ML Ophthalmic Solution 06/28/2020 12:00:0 0 AM [facility] tramadol hydrochloride 50 MG Oral Tablet 05/08/2020 12:00:00 AM [facility] Sucralfate 1000 MG Oral Tablet 02/10/2020 12:00:00 AM EDT [facility] Simethicone 80 MG Chewable Tablet 10/09/2019 12:00:00 AM EDT [facility] Acetaminophen 325 MG Oral Tablet 10/09/2019 12:00:00 AM EDT [facility] latanoprost 0.05 MG/ML Ophthalmic Solution 09/10/2019 12:00:00 AM E DT [place] ([facility]) Brimonidine tartrate 2 MG/ML Ophthalmic Solution 08/09/2019 12:00:0 0 AM EDT [place] ([facility]) sennosides, RETIREMENT 8.6 MG Oral Tablet [facility] Misoprostol 0.2 MG Oral Tablet [facility] Sucralfate 1000 MG Oral Tablet [facility] lubiprostone 0.024 MG Oral Capsule [facility]
[2021-03-17] MEDS ORDERED: MULTTAB61 PO (10:53)
[2021-03-17 10:55] LABS: INR 1.17; PROTHROMBIN TIME 15.3 SECONDS (12.7-14.5)
[2021-03-17 11:11] LABS: ALBUMIN 2.3 GM/DL (3.2-5.2); BILIRUBIN,TOTAL 0.6 MG/DL (0.2-1.0); CK-MB VALUE MASS 7.2 NG/ML (<3.6); CREATININE FOR GFR 2.92 MG/DL (0.55-1.30); MB/CK RELATIVE INDEX 1.33 (< OR =4); POTASSIUM SERUM 4.4 MEQ/L (3.5-5.1); TOTAL PROTEIN 6.1 GM/DL (6.4-8.2); TROPONIN I 1.48 NG/ML (< 0.10)
[2021-03-17 11:21] LABS: RSV AMPLIFICATION NEGATIVE (NEGATIVE)
[2021-03-17 12:41] LABS: CK-MB VALUE MASS 6.6 NG/ML (<3.6); MB/CK RELATIVE INDEX 1.41 (< OR =4); TROPONIN I 1.57 NG/ML (< 0.10)
[2021-03-17 15:44] VITALS: BP 109/66
--- NOTE | 2021-03-17 18:20 | ECGEPIP ---
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
== END 2021-03-17 15:55 | disposition short-term general hospital (02) ==
LOC: M ED 09:25 → EDBD 09:25 → M ED 15:55
DX: I21.4 Non-ST elevation (NSTEMI) myocardial infarction (principal); N17.9 Acute kidney failure, unspecified; R29.6 Repeated falls; I48.91 Unspecified atrial fibrillation; E11.9 Type 2 diabetes mellitus without complications; I10 Essential (primary) hypertension; K21.9 Gastro-esophageal reflux disease without esophagitis; E78.5 Hyperlipidemia, unspecified; C85.90 Non-Hodgkin lymphoma, unspecified, unspecified site; Z88.8 Allergy status to other drugs, medicaments and biological substances; Z79.01 Long term (current) use of anticoagulants; Z79.899 Other long term (current) drug therapy; Z79.4 Long term (current) use of insulin